=== PATIENT | female | born 1970 | race Caucasian/White ===

== ENCOUNTER 2018-12-06 07:35 | Inpatient (IN) | payer MEDICARE, OTHER ==
[~2018-12-06] VITALS: Ht 157.5 cm; Wt 101.5 kg
[2018-12-06] VITALS (43 sets, daily range): BP systolic 101–165; BP diastolic 54–92; PULSE 30–102; RESP 13–19; Ht 157.5 cm; Wt 101.5 kg
[~2018-12-06 07:35] MED LIST: AMIODARONE 150 MG INJ ONE; ASPI-650 PO; ATROPINE 1 MG/10 ML SYRINGE ONE; BENA40TA54 PO; BRIM15DR7; CALC667T2; CLON0.2T5; DOCU-144 PO; EPINEPHrine 0.1 MG/ML SYG ONE; ESOM40CA PO; FOLI0.8T23 PO; GLIP2.5T PO; INSU100V18 SQ; LACT10SO55 PO; LACTULOSE PO; LEVE-5 PO; METO100T PO; METO10TA3; MONT10TA21 PO; NA BICARBONATE 8.4% 50 ML SYG ONE; NEPH PO; NIFE30TA8; PHEN100C PO; PRED1DRO; PROSTAT 64 PO; WARF7.5T PO
[2018-12-06] MEDS ORDERED: AMIODARONE 900 MG in DEXTROSE 5% 482 ML IV SCH (08:30)
--- NOTE | 2018-12-06 09:07 | ERD ---
ER Documentation Chief Complaint Chief Complaint SOB HPI This is a 47-year-old female with a history of end-stage renal disease, hype rtension, morbid obesity presents to the emergency room for evaluation of weakness, shortness of breath. The patient was at dialysis today and could not complete her dialysis. The patient came to the emergency room for evaluation of her generalized weakness and shortness of breath. Patient denies any active chest pain at this time but does states she is feeling extremely weak ROS All systems reviewed and are negative except as per history of present illness. Medications Home Meds Reported Medications Insulin Lispro (Humalog) 100 U/Ml Vial, SQ SSI TID AND HS PRN 09/12/11 Multivit/Ca Carb/B Cmplx/Fa* (Mariaelena-Rosas*) 1 Tab Tab, 1 TAB PO DAILY 09/12/11 [Prostat 64] No Conflict Check, 30 ML PO TID 09/12/11 Esomeprazole Mag Trihydrate (Nexium) 40 Mg Capsule.dr, 40 MG PO DAILY 09/12/11 Metoprolol (Lopressor) 100 Mg Tablet, 100 MG PO BID 09/12/11 Benazepril Hcl* (Lotensin*) 40 Mg Tablet, 40 MG PO DAILY 09/12/11 [Lactulose] No Conflict Check, 30 ML PO DAILY PRN 09/12/11 Lactulose (Lactulose) 10 G/15 Ml Solution, 20 G PO BID 09/12/11 Glipizide* (Glucotrol XL*) 2.5 Mg Tabsr, 2.5 MG PO DAILY 09/12/11 Phenytoin* Sodium Extended (Dilantin*) 100 Mg Capsule, 300 MG PO HS 09/12/11 Phenytoin* Sodium Extended (Dilantin*) 100 Mg Capsule, 200 MG PO DAILY @0900 09/12/11 Phenytoin* Sodium Extended (Dilantin*) 100 Mg Capsule, 200 MG PO DAILY @1300 09/12/11 Phenytoin* Sodium Extended (Dilantin*) 100 Mg Capsule, 200 MG PO DAILY 09/12/11 Docusate Sodium* (Colace*) 100 Mg Capsule, 200 MG PO DAILY 09/12/11 Warfarin Sodium* (Coumadin*) 7.5 Mg Tablet, 7.5 MG PO Q OTHER DAY 06/01/11 Montelukast Sodium* (Singulair*) 10 Mg Tablet, 10 MG PO HS 06/01/11 Folic Acid/Vitamin B Comp W-C* (Nephro-Rosas Tablet*) 0.8 Mg Tablet, 0.8 MG PO DAILY 06/01/11 Aspirin (Aspirin) 81 Mg Tablet, 81 MG PO DAILY 06/01/11 Levetiracetam* (Keppra*) 500 Mg Tablet, 500 MG PO BID 06/01/11 Clonidine Hcl* (Clonidine Hcl*) 0.2 Mg Tablet 01/09/11 Metoclopramide Hcl* (Metoclopramide Hcl*) 10 Mg Tablet 01/09/11 Brimonidine Tartrate* (Brimonidine Tartrate*) 15 Ml Drops 01/09/11 Prednisolone Acetate (Pred Forte) 5 Ml Drops.susp 01/09/11 Nifedipine (Nifedical XL*) 30 Mg/Bottle Tab.osm.24 01/09/11 Calcium Acetate* (Phoslo*) 667 Mg Tablet 10/24/09 Allergies Allergies: Coded Allergies: No Known Allergy (Verified , 10/24/11) PMhx/Soc History of Surgery: Yes (AVF SHUNT, ) Anesthesia Reaction: No Hx Neurological Disorder: No Hx Respiratory Disorders: No Hx Cardiac Disorders: Yes (STROKE) Hx Psychiatric Problems: No Hx Miscellaneous Medical Probl: Yes (ANEMIA,SEIZURES) Hx Alcohol Use: No Hx Substance Use: No Hx Tobacco Use: No Smoking Status: Never smoker Physical Exam Vitals Vital Signs Date Temp Pulse Resp B/P (MAP) Pulse Ox O2 O2 Flow FiO2 Time Delivery Rate 12/06/18 96 Nasal 4.0 08:21 Cannula 12/06/18 97.9 95 23 124/59 66 Room Air 08:01 (80) 12/06/18 97.9 95 23 124/59 66 08:01 (80) 12/06/18 Nasal 4 07:59 Cannula Physical Exam INITIAL VITAL SIGNS: Reviewed by me GENERAL: The patient is morbidly obese, mild respiratory distress HEENT: Dry mucous membranes, pupils equal, round, and reactive to light. EOMI. There is no scleral icterus. NECK: C-spine is soft and supple, there is no meningismus. There is no cervical lymphadenopathy. LUNGS: Diminished bilaterally HEART: Regular rate and rhythm, no murmurs, clicks, rubs or gallops. ABDOMEN: Soft, non-tender, non-distended. There are bowel sounds in all four quadrants. No rebound or guarding. EXTREMITIES: Fistula in the right upper extremity, there is no peripheral cyanosis or edema. No focal swelling or erythema. NEUROLOGICAL: The patient moves all four extremities with 5/5 strength. Cranial nerves II - XII are intact. Normal gait. Alert and oriented SKIN: There is no apparent rash or petechiae. HEME/LYMPHATIC: There is no evidence of excessive bruising or lymphedema. PSYCHIATRIC: The patient does not appear anxious or depressed. Result Diagram: 12/06/18 0810 12/06/18 0810 Results 24 hrs Laboratory Tests Test 12/06/18 08:10 White Blood Count 8.6 10^3/ul Red Blood Count 3.28 10^6/ul Hemoglobin 9.9 g/dl Hematocrit 31.0 % Mean Corpuscular Volume 94.5 fl Mean Corpuscular Hemoglobin 30.2 pg Mean Corpuscular Hemoglobin Concent 31.9 g/dl Red Cell Distribution Width 14.2 % Platelet Count 142 10^3/UL Mean Platelet Volume 10.0 fl Immature Granulocytes % 0.600 % Neutrophils % 90.2 % Lymphocytes % 6.0 % Monocytes % 2.9 % Eosinophils % 0.1 % Basophils % 0.2 % Nucleated Red Blood Cells % 0.0 /100WBC Immature Granulocytes # 0.050 10^3/ul Neutrophils # 7.7 10^3/ul Lymphocytes # 0.5 10^3/ul Monocytes # 0.3 10^3/ul Eosinophils # 0.0 10^3/ul Basophils # 0.0 10^3/ul Nucleated Red Blood Cells # 0.0 10^3/ul Sodium Level 138 mmol/L Potassium Level 3.7 mmol/L Chloride Level 91 mmol/L Carbon Dioxide Level 35 mmol/L Anion Gap 12 Blood Urea Nitrogen 15 mg/dl Creatinine 3.05 mg/dl Est Glomerular Filtrat Rate mL/min 16 mL/min Glucose Level 228 mg/dl Lactic Acid Level 3.1 mmol/L Calcium Level 9.3 mg/dl Total Bilirubin 0.7 mg/dl Direct Bilirubin 0.00 mg/dl Indirect Bilirubin 0.7 mg/dl Aspartate Amino Transf (AST/SGOT) 21 IU/L Alanine Aminotransferase (ALT/SGPT) 15 IU/L Alkaline Phosphatase 114 IU/L Troponin I < 0.012 ng/ml Total Protein 7.9 g/dl Albumin 4.3 g/dl Globulin 3.60 g/dl Albumin/Globulin Ratio 1.19 Current Medications Medications Dose Sig/Lisa Start Time Status Last (Trade) Ordered Route PRN Stop Time Admin Dose Reason Admin Amiodarone 500 ml @ 0 Q0M IV 12/06/18 HCl 900 mls/hr 08:30 mg/Dextrose Procedures/MDM Chest X-ray 1V Interpreted by me: Soft Tissue: No acute abnormalities Bones: No acute abnormalities Mediastinum/Cardiac Silhouette/Lungs: Interstitial edema EKG: Rate/Rhythm: [Normal Sinus Rhythm] QRS, ST, T-waves: [No changes consistent w/ acute ischemia] Impression: [Normal sinus rhythm with left axis deviation, no ST elevation This 47-year-old female presents to the ER for evaluation of weakness, and shortness of breath. On my exam the patient was shaking, she did appear to be in mild respiratory distress. The patient was placed on 4 L nasal cannula. I was told that the patient's a pulse ox level was approximately 84% on room air. The patient did have an IV line established and went into a short run of ventr icular tachycardia. She remained awake during this run and it was captured on the patient's bedside monitor. The patient was awake, she is protecting her airway. I did order an amiodarone drip. The patient will definitely need to be admitted to the hospital for a cardiology consult. She is not hypotensive at this time with no need for vasopressors. The patient does have an elevated lactic acid however I do feel that this is likely secondary to her episode of V. tach as opposed to sepsis. She does not have a significant leukocytosis, and there is no need for antibiotics at this time. The patient will be admitted to panel physician Dr. Irwin and will be placed in the intensive care unit. Critical Care: Excluding all billable procedures Time: 55 minutes Treatments/Evaluations: Close monitoring and treatment of unstable vital signs, cardiorespiratory, and neurologic status, while maintaining tight balance of fluid, respiratory, and cardiac interventions. Departure Diagnosis: Primary Impression: Ventricular tachycardia (paroxysmal) Additional Impressions: Acute respiratory failure with hypoxia End stage renal disease Shortness of breath Morbid obesity Condition: Critical MARGY MONROE DO Dec 06, 2018 09:07
[2018-12-06] MEDS ORDERED: ALBUTEROL 0.083% (NEB) 2.5 MG/3 ML AMP NEB PRN (09:30)
[2018-12-06] MEDS ORDERED: MAGNESIUM HYDROXIDE 30ML CUP PO PRN (09:30)
[2018-12-06] MEDS ORDERED: DOCUSATE SODIUM 100 MG CAP PO PRN (09:30)
[2018-12-06] MEDS ORDERED: ONDANSETRON 4 MG INJ IV PRN (09:30)
[2018-12-06] MEDS ORDERED: ACETAMINOPHEN 325 MG TAB PO PRN (09:30)
--- NOTE | 2018-12-06 10:09 | HP ---
Date/Time of Note Date/Time of Note DATE: 12/06/18 TIME: 10:09 Assessment/Plan VTE Prophylaxis SCD applied (from Nsg): Yes Pharmacological prophylaxis: heparin Lines/Catheters IV Catheter Type (from Nrsg): Peripheral IV Assessment/Plan Assessment/Plan 1. Acute cardiac arrest with ROSC - Patient initially with NSVT and given prolonged QT and placement on Amiodarone went into torsades then coded. Patient coded another 3 times total secondary to PEA arrest - Cardiology on board and appreciate recommendations. Will start on Dopamine drip and if needed will place external pacer pads. Will most likely need cardi ac cath and possible defibrillator placement based on progression of clinical course - Currently being started on hypothermia protocol 2. ?Arrhythmia, NSVT - Patient has ? afib and may have had afib with aberrancy but initial event was not captured - EKG showing prolonged QT Will continue monitoring for further episodes - will place transcutaneous pacers - on coumadin but will hold for now 3. Cardiogenic shock - Continue on Dopamine and Levophed 4. Sepsis of unknown source - most likely aspiration given multiple cardiac arrest episodes - will order snider cultures and start broad spectrum antibiotics - trend lactic acids 5. Hypokalemia - replace 6. DM - will start insulin drip for now - A1c noted and uncontrolled 7. ESRD on HD - Dr. Reddy consulted for continuation of HD. T/T/S scheduled 8. h/o CVA - continue current medications 9. HTN - elevated at time of admission in the 200s. Currently requiring pressor support 10. Disposition - Admit to ICU for hypothermia protocol and close monitoring - guarded prognosis - plan of care discussed with sister at bedside >60 minutes of critical care time spent with patient Result Diagram: 12/06/18 0810 12/06/18 0810 Results 24hrs Laboratory Tests Test 12/06/18 08:10 White Blood Count 8.6 Red Blood Count 3.28 L Hemoglobin 9.9 L Hematocrit 31.0 L Mean Corpuscular Volume 94.5 Mean Corpuscular Hemoglobin 30.2 Mean Corpuscular Hemoglobin Concent 31.9 L Red Cell Distribution Width 14.2 Platelet Count 142 Mean Platelet Volume 10.0 Immature Granulocytes % 0.600 H Neutrophils % 90.2 H Lymphocytes % 6.0 L Monocytes % 2.9 Eosinophils % 0.1 Basophils % 0.2 Nucleated Red Blood Cells % 0.0 Immature Granulocytes # 0.050 H Neutrophils # 7.7 H Lymphocytes # 0.5 L Monocytes # 0.3 Eosinophils # 0.0 Basophils # 0.0 Nucleated Red Blood Cells # 0.0 Sodium Level 138 Potassium Level 3.7 Chloride Level 91 L Carbon Dioxide Level 35 H Anion Gap 12 Blood Urea Nitrogen 15 Creatinine 3.05 H Est Glomerular Filtrat Rate mL/min 16 L Glucose Level 228 H Lactic Acid Level 3.1 *H Calcium Level 9.3 Total Bilirubin 0.7 Direct Bilirubin 0.00 Indirect Bilirubin 0.7 Aspartate Amino Transf (AST/SGOT) 21 Alanine Aminotransferase (ALT/SGPT) 15 Alkaline Phosphatase 114 Troponin I < 0.012 Total Protein 7.9 Albumin 4.3 Globulin 3.60 H Albumin/Globulin Ratio 1.19 HPI/ROS Admit Date/Time Admit Date/Time 12/06/18 0900 Hx of Present Illness 47 yo F with PMH ESRD on HD for the past 8 years, Diabetes Mellitus, HTN, CVA with L sided residual weakness and ? afib on Coumadin presented to ED following dialysis this am due to feeling "cold." She was found hypoxic with saturations 66% which improved after being placed on NC. Patient denies any chest pain, law rtness of breath, nausea, vomiting, dizziness, abdominal pain, or urinary issues. While in the ED, patient was complaining of acute shortness of breath and witness to have runs of Vtach. She was placed on Amiodarone drip and went into Vtach and torsades rhythm and Vfib Patient received a shock, round of epi with ROSC. She was intubated and central line was placed. Hypothermia protocol was initiated and started on Lidocaine and Levophed. Patient coded two more times in the ED with noted PEA arrest. Patient was transferred to ICU. Patient coded again in the ICU and transvenous pacer was unable to be placed given stenosis of vessels. Patient was switched to Dopamine and Levophed and hy pothermia protocol continued. ROS All 12 systems reviewed and all pertinent positives as per HPI. All others negative. Constitutional: fatigue; No chills, No nausea Eyes: No discharge ENT: No congestion Respiratory: shortness of breath; No cough, No sputum, No wheezing Cardiovascular: No chest pain, No lightheadedness, No palpitations Gastrointestinal: No pain, No constipation, No diarrhea, No nausea, No vomiting Genitourinary: no complaints Musculoskeletal: no complaints Skin: No laceration, No rash Neurologic: No confusion, No focal-weakness, No syncope Endocrine: no complaints Lymphatic: no complaints Psychological: nl mood/affect Immunologic: no complaints PMH/Family/Social Past Medical History Medical History: diabetes, hypertension, renal disease, other (cva with left sided residual weakness) Medications Current Medications Amiodarone HCl 900 mg/Dextrose 500 ml @ 0 mls/hr Q0M IV Last administered on 12/06/18at 09:17; Admin Dose 33.3 MLS/HR; Start 12/06/18 at 08:30 Coded Allergies: No Known Allergy (Verified , 10/24/11) Past Surgical History Past Surgical Hx: other (fistula placement, C section) Family History Significant Family History: heart disease, renal disease Social History Alcohol Use: none Smoking Status: Never smoker Drug Use: none Exam/Review of Systems Vital Signs Vitals Vital Signs Date Temp Pulse Resp B/P (MAP) Pulse Ox O2 O2 Flow FiO2 Time Delivery Rate 12/06/18 96 Nasal 4.0 08:21 Cannula 12/06/18 97.9 95 23 124/59 08:01 (80) Exam Exam General: Patient initially was in no acute distress, answering questions approp riately. dry mucus membranes Head: Normocephalic atraumatic Eyes: EOMI, pupils reactive to light. Neck: Supple, nontender Chest: nontender Respiratory: Clear to auscultation bilaterally, diminished. no wheezing or rhonchi Cardiovascular: S1, S2, regular rate and rhythm, no obvious murmurs Gastrointestinal: soft, non-tender to palpation, nondistended, bowel sounds heard. Ext: RUE fistula Neurological: Moves all extremities spontaneously. diminished strength in LUE and LLE Skin: no rashes or ecchymosis Additional Comments Home medications reviewed BEAN BEST MD Dec 06, 2018 10:09
[2018-12-06] MEDS: ASPIRIN 81 MG TAB PO SCH (10:30)
[2018-12-06] MEDS ORDERED: LEVETIRACETAM 500 MG TAB PO SCH (10:30)
[2018-12-06] MEDS ORDERED: GLUCOSE GEL 15 GRAM TUBE PO PRN ×2 (10:30)
[2018-12-06] MEDS: NIFEdipine (XL) 30 MG TAB PO SCH (10:30)
[2018-12-06] MEDS ORDERED: GLUCAGON 1 MG INJ IM PRN (10:30)
[2018-12-06] MEDS: MULTIVIT/CA CARB/B CMPLX/FA TAB PO SCH (10:30)
[2018-12-06] MEDS ORDERED: DEXTROSE 50% 50 ML SYRINGE IV PRN ×4 (10:30→16:30)
[2018-12-06] MEDS ORDERED: DOCUSATE SODIUM 100 MG CAP PO SCH (10:30)
[2018-12-06] MEDS ORDERED: GLUCOSE GEL 15 GRAM TUBE BUCCAL PRN (10:30)
[2018-12-06] MEDS ORDERED: PHENYTOIN 100 MG CAP PO SCH ×3 (10:30→21:00)
[2018-12-06] MEDS ORDERED: METOPROLOL 100 MG TAB PO SCH (10:30)
[2018-12-06] MEDS ORDERED: glipiZIDE (XL) 2.5 MG TAB PO SCH (11:00)
[2018-12-06] MEDS: BRIMONIDINE 0.2% 5 ML BTL BOTH EYES SCH (11:00)
--- NOTE | 2018-12-06 11:02 | CONS ---
Assessment/Plan Assessment/Plan Assessment/Plan (Daily) 1. Cardiopulmonary Arrest--initially secondary to NSVT vs. Afib with aberrancy, thereafter course complicated by Torsades with notable QT prolongation. - Currently on Hypothermia protocol 2. ESRD on HD [facility] 3. acute hypoxemic respiratory failure due to cardiac arrest s/p Intubation on ventilator 4. Shock--likely cardiogenic; cannot exclude obstructive though clinical picture not consistent with massive PE. 5. Sepsis--unclear source at this time 6. HTN heart disease 7.. DM Plan: seen in ER< going to ICU, s/p Evaluation by cardiology and Wound Nurse, Remains intubated, on hypothermia protocol pt finished 3 hr 15 min HD today at HD unit, will hold off on HD today and tomorrow due to being on hypothermia protocol Thanks for consultation ,will follow up Consultation Date/Type/Reason Admit Date/Time 12/06/2018 Date of Consultation: Dec 06, 2018 Type of Consult NEPHROLOGY Reason for Consultation ESRD on Admitted with cardiac arrest Requesting Provider: BEAN BEST MD Date/Time of Note DATE: 12/06/18 TIME: 10:59 Hx of Present Illness 47 yo F with PMH ESRD on HD for the past 8 years, Diabetes Mellitus, HTN, CVA with L sided residual weakness and ? afib on Coumadin presented to ED following dialysis this am due to feeling "cold." She was found hypoxic with saturations 66% which improved after being placed on NC. Patient denies any chest pain, shortness of breath, nausea, vomiting, dizziness, abdominal pain, or urinary issues. While in the ED, patient was complaining of acute shortness of breath and witness to have runs of Vtach. She was placed on Amiodarone drip and went into Vtach and torsades rhythm and Vfib Patient received a shock, round of epi with ROSC. She was intubated and central line was placed. Hypothermia protocol was initiated and started on Lidocaine and Levophed. Patient coded two more times in the ED with noted PEA arrest. Patient was transferred to ICU. Patient coded again in the ICU and transvenous pacer was unable to be placed given stenosis of vessels. Patient was switched to Dopamine and Levophed and hypothermia protocol continued. Pt follows at [facility] HD center and her authorization representative is Dr.Susan- Today she c/o fever with chills in HD unit, received IV abx vanocmyin and HD terminated after 3 hr 15 min Subjective hx not possible: pt non-verbal, pt critical status, other (on hypothermia protocol ) Past Medical History Medical History: other (ESRD on HD for the past 8 years, Diabetes Mellitus, HTN, CVA with L sided residual weakness and ? afib on Coumadin ) Home Meds Reported Medications Insulin Lispro (Humalog) 100 U/Ml Vial, SQ SSI TID AND HS PRN 09/12/11 Multivit/Ca Carb/B Cmplx/Fa* (Mariaelena-Rosas*) 1 Tab Tab, 1 TAB PO DAILY 09/12/11 [Prostat 64] No Conflict Check, 30 ML PO TID 09/12/11 Esomeprazole Mag Trihydrate (Nexium) 40 Mg Capsule.dr, 40 MG PO DAILY 09/12/11 Metoprolol (Lopressor) 100 Mg Tablet, 100 MG PO BID 09/12/11 Benazepril Hcl* (Lotensin*) 40 Mg Tablet, 40 MG PO DAILY 09/12/11 [Lactulose] No Conflict Check, 30 ML PO DAILY PRN 09/12/11 Lactulose (Lactulose) 10 G/15 Ml Solution, 20 G PO BID 09/12/11 Glipizide* (Glucotrol XL*) 2.5 Mg Tabsr, 2.5 MG PO DAILY 09/12/11 Phenytoin* Sodium Extended (Dilantin*) 100 Mg Capsule, 300 MG PO HS 09/12/11 Phenytoin* Sodium Extended (Dilantin*) 100 Mg Capsule, 200 MG PO DAILY @0900 09/12/11 Phenytoin* Sodium Extended (Dilantin*) 100 Mg Capsule, 200 MG PO DAILY @1300 09/12/11 Phenytoin* Sodium Extended (Dilantin*) 100 Mg Capsule, 200 MG PO DAILY 09/12/11 Docusate Sodium* (Colace*) 100 Mg Capsule, 200 MG PO DAILY 09/12/11 Warfarin Sodium* (Coumadin*) 7.5 Mg Tablet, 7.5 MG PO Q OTHER DAY 06/01/11 Montelukast Sodium* (Singulair*) 10 Mg Tablet, 10 MG PO HS 06/01/11 Folic Acid/Vitamin B Comp W-C* (Nephro-Rosas Tablet*) 0.8 Mg Tablet, 0.8 MG PO DAILY 06/01/11 Aspirin (Aspirin) 81 Mg Tablet, 81 MG PO DAILY 06/01/11 Levetiracetam* (Keppra*) 500 Mg Tablet, 500 MG PO BID 06/01/11 Clonidine Hcl* (Clonidine Hcl*) 0.2 Mg Tablet 01/09/11 Metoclopramide Hcl* (Metoclopramide Hcl*) 10 Mg Tablet 01/09/11 Brimonidine Tartrate* (Brimonidine Tartrate*) 15 Ml Drops 01/09/11 Prednisolone Acetate (Pred Forte) 5 Ml Drops.susp 01/09/11 Nifedipine (Nifedical XL*) 30 Mg/Bottle Tab.osm.24 01/09/11 Calcium Acetate* (Phoslo*) 667 Mg Tablet 10/24/09 Medications Current Medications Amiodarone HCl 900 mg/Dextrose 500 ml @ 0 mls/hr Q0M IV Last administered on 12/06/18at 09:17; Admin Dose 33.3 MLS/HR; Start 12/06/18 at 08:30 Ondansetron HCl (Zofran Inj) 4 mg Q6H PRN IV NAUSEA AND/OR VOMITING; Start 12/06/18 at 09:30 Albuterol (Proventil 0.083% (Neb)) 2.5 mg Q2H RESP THERAPY PRN NEB SHORTNESS OF BREATH; Start 12/06/18 at 09:30 Acetaminophen (Tylenol Tab) 650 mg Q6H PRN PO PAIN LEVEL 1-3 OR FEVER; Start 12/06/18 at 09:30 Docusate Sodium (Colace) 100 mg Q12H PRN PO CONSTIPATION; Start 12/06/18 at 0 9:30 Magnesium Hydroxide (Milk Of Mag) 30 ml DAILY PRN PO CONSTIPATION; Start 12/06/18 at 09:30 Pantoprazole (Protonix Tab) 40 mg DAILY@06 PO ; Start 12/07/18 at 06:00 Heparin Sodium (Porcine) (Heparin (5000 Units/1ml)) 5,000 unit Q12 SC ; Start 12/06/18 at 21:00 Aspirin (Aspirin) 81 mg DAILY PO ; Start 12/06/18 at 10:30 Brimonidine Tartrate (Alphagan 0.2%) 1 drop DAILY BOTH EYES ; Start 12/06/18 at 11:00 Calcium Acetate (Phoslo) 667 mg WITH MEALS PO ; Start 12/06/18 at 12:00 Docusate Sodium (Colace) 200 mg DAILY PO ; Start 12/06/18 at 10:30 Glipizide (Glucotrol Xl) 2.5 mg DAILY PO ; Start 12/06/18 at 11:00 Lactulose (Enulose) 20 gm BID PO ; Start 12/06/18 at 21:00 Levetiracetam (Keppra) 500 mg BID PO ; Start 12/06/18 at 10:30 Metoprolol Tartrate (Lopressor) 100 mg BID PO ; Start 12/06/18 at 10:30 Montelukast Sodium (Singulair) 10 mg HS PO ; Start 12/06/18 at 21:00 Multivit/Ca Carb/ B Cmplx/FA/Prenat (Mariaelena-Rosas) 1 tab DAILY PO ; Start 12/06/18 at 10:30 Nifedipine (Procardia Xl) 30 mg DAILY PO ; Start 12/06/18 at 10:30 Phenytoin (Dilantin) 200 mg DAILY PO ; Start 12/06/18 at 10:30 Phenytoin (Dilantin) 200 mg WITH LUNCH PO ; Start 12/06/18 at 12:00 Phenytoin (Dilantin) 300 mg HS PO ; Start 12/06/18 at 21:00 Prednisolone Acetate (Pred-Forte 1%) 1 drop DAILY BOTH EARS ; Start 12/07/18 at 09:00; Status UNV Miscellaneous Information 1 ea NOTE XX ; Start 12/06/18 at 10:30 Glucose (Glutose) 15 gm Q15M PRN PO DECREASED GLUCOSE; Start 12/06/18 at 10:30 Glucose (Glutose) 22.5 gm Q15M PRN PO DECREASED GLUCOSE; Start 12/06/18 at 10:30 Dextrose (D50w Syringe) 25 ml Q15M PRN IV DECREASED GLUCOSE; Start 12/06/18 at 10:30 Dextrose (D50w Syringe) 50 ml Q15M PRN IV DECREASED GLUCOSE; Start 12/06/18 at 10:30 Glucagon (Glucagen) 1 mg Q15M PRN IM DECREASED GLUCOSE; Start 12/06/18 at 10:30 Glucose (Glutose) 15 gm Q15M PRN BUCCAL DECREASED GLUCOSE; Start 12/06/18 at 10:30 Allergies: Coded Allergies: No Known Allergy (Verified , 10/24/11) Social History Smoking Status: Never smoker Exam/Review of Systems Exam Vitals Vital Signs Date Temp Pulse Resp B/P (MAP) Pulse Ox O2 O2 Flow FiO2 Time Delivery Rate 12/06/18 97 24 206/56 98 Nasal 4.0 09:43 (106) Cannula 12/06/18 97.9 08:01 Exam Constitutional: non-verbal Head: normocephalic, atraumatic Eyes: nl conjunctiva, nl lids ENMT: intubated Neck: supple, non-tender Respiratory: diminished breath sounds Cardiovascular: irregular rhythm Gastrointestinal: soft, nl liver, spleen, non-tender Extremities: normal pulses, other (cold ) Neurological: unresponsive Skin: nl turgor Results Result Diagram: 12/06/18 0810 12/06/18 0810 Results 24hrs Laboratory Tests Test 12/06/18 07:22 12/06/18 08:10 Hemoglobin A1c 12.9 H White Blood Count 8.6 Red Blood Count 3.28 L Hemoglobin 9.9 L Hematocrit 31.0 L Mean Corpuscular Volume 94.5 Mean Corpuscular Hemoglobin 30.2 Mean Corpuscular Hemoglobin Concent 31.9 L Red Cell Distribution Width 14.2 Platelet Count 142 Mean Platelet Volume 10.0 Immature Granulocytes % 0.600 H Neutrophils % 90.2 H Lymphocytes % 6.0 L Monocytes % 2.9 Eosinophils % 0.1 Basophils % 0.2 Nucleated Red Blood Cells % 0.0 Immature Granulocytes # 0.050 H Neutrophils # 7.7 H Lymphocytes # 0.5 L Monocytes # 0.3 Eosinophils # 0.0 Basophils # 0.0 Nucleated Red Blood Cells # 0.0 Sodium Level 138 Potassium Level 3.7 Chloride Level 91 L Carbon Dioxide Level 35 H Anion Gap 12 Blood Urea Nitrogen 15 Creatinine 3.05 H Est Glomerular Filtrat Rate mL/min 16 L Glucose Level 228 H Lactic Acid Level 3.1 *H Calcium Level 9.3 Total Bilirubin 0.7 Direct Bilirubin 0.00 Indirect Bilirubin 0.7 Aspartate Amino Transf (AST/SGOT) 21 Alanine Aminotransferase (ALT/SGPT) 15 Alkaline Phosphatase 114 Troponin I < 0.012 Total Protein 7.9 Albumin 4.3 Globulin 3.60 H Albumin/Globulin Ratio 1.19 Medications Medication Current Medications Amiodarone HCl 900 mg/Dextrose 500 ml @ 0 mls/hr Q0M IV Last administered on 12/06/18at 09:17; Admin Dose 33.3 MLS/HR; Start 12/06/18 at 08:30 Ondansetron HCl (Zofran Inj) 4 mg Q6H PRN IV NAUSEA AND/OR VOMITING; Start 12/06/18 at 09:30 Albuterol (Proventil 0.083% (Neb)) 2.5 mg Q2H RESP THERAPY PRN NEB SHORTNESS OF BREATH; Start 12/06/18 at 09:30 Acetaminophen (Tylenol Tab) 650 mg Q6H PRN PO PAIN LEVEL 1-3 OR FEVER; Start 12/06/18 at 09:30 Docusate Sodium (Colace) 100 mg Q12H PRN PO CONSTIPATION; Start 12/06/18 at 09:30 Magnesium Hydroxide (Milk Of Mag) 30 ml DAILY PRN PO CONSTIPATION; Start 12/06/18 at 09:30 Pantoprazole (Protonix Tab) 40 mg DAILY@06 PO ; Start 12/07/18 at 06:00 Heparin Sodium (Porcine) (Heparin (5000 Units/1ml)) 5,000 unit Q12 SC ; Start 12/06/18 at 21:00 Aspirin (Aspirin) 81 mg DAILY PO ; Start 12/06/18 at 10:30 Brimonidine Tartrate (Alphagan 0.2%) 1 drop DAILY BOTH EYES ; Start 12/06/18 at 11:00 Calcium Acetate (Phoslo) 667 mg WITH MEALS PO ; Start 12/06/18 at 12:00 Docusate Sodium (Colace) 200 mg DAILY PO ; Start 12/06/18 at 10:30 Glipizide (Glucotrol Xl) 2.5 mg DAILY PO ; Start 12/06/18 at 11:00 Lactulose (Enulose) 20 gm BID PO ; Start 12/06/18 at 21:00 Levetiracetam (Keppra) 500 mg BID PO ; Start 12/06/18 at 10:30 Metoprolol Tartrate (Lopressor) 100 mg BID PO ; Start 12/06/18 at 10:30 Montelukast Sodium (Singulair) 10 mg HS PO ; Start 12/06/18 at 21:00 Multivit/Ca Carb/ B Cmplx/FA/Prenat (Mariaelena-Rosas) 1 tab DAILY PO ; Start 12/06/18 at 10:30 Nifedipine (Procardia Xl) 30 mg DAILY PO ; Start 12/06/18 at 10:30 Phenytoin (Dilantin) 200 mg DAILY PO ; Start 12/06/18 at 10:30 Phenytoin (Dilantin) 200 mg WITH LUNCH PO ; Start 12/06/18 at 12:00 Phenytoin (Dilantin) 300 mg HS PO ; Start 12/06/18 at 21:00 Prednisolone Acetate (Pred-Forte 1%) 1 drop DAILY BOTH EARS ; Start 12/07/18 at 09:00; Status UNV Miscellaneous Information 1 ea NOTE XX ; Start 12/06/18 at 10:30 Glucose (Glutose) 15 gm Q15M PRN PO DECREASED GLUCOSE; Start 12/06/18 at 10:30 Glucose (Glutose) 22.5 gm Q15M PRN PO DECREASED GLUCOSE; Start 12/06/18 at 10:30 Dextrose (D50w Syringe) 25 ml Q15M PRN IV DECREASED GLUCOSE; Start 12/06/18 at 10:30 Dextrose (D50w Syringe) 50 ml Q15M PRN IV DECREASED GLUCOSE; Start 12/06/18 at 10:30 Glucagon (Glucagen) 1 mg Q15M PRN IM DECREASED GLUCOSE; Start 12/06/18 at 10:30 Glucose (Glutose) 15 gm Q15M PRN BUCCAL DECREASED GLUCOSE; Start 12/06/18 at 10:30 LAZ MELGAR MD Dec 06, 2018 11:02
--- NOTE | 2018-12-06 11:57 | CONS ---
Assessment/Plan Assessment/Plan Hospital Course (Demo Recall) NSVT: Unfortunately the tele bed in the ER that she was in does not record arrhythmias. Per ER MD she had 10-12 beats runs. This may be true NSVT but if she has underlying afib she may have had runs of afib with aberrancy. Will start with an echo and trend trops. If EF preserved, may just treat with metoprolol and consider stress test. Acute on ?chronic ?diastolic CHF: unknown EF. MIld CHF by exam. Did have HD already today as outpt HTN : BP initially recorded in the 120s, now >200. Likely contributing to above ?Paroxysmal afib: pt is unsure why she takes this. With h/o stroke, presumably she had afib in the past. ESRD on HD DM CVA with left weakness -d/c amiodarone drip -f/u echo -increase to metoprolol 150mg BID -restart home benazepril 40mg -restart clonidine 0.2mg TID -continue nifedipine 30mg -ok to hold coumadin until decision is made regarding need for cath based on echo findings. -d/c SQ heparin until INR is checked as she is presumably already anticoagulated on coumadin Consultation Date/Type/Reason Admit Date/Time 12/06/2018 Date of Consultation: Dec 06, 2018 Type of Consult Cardiology Reason for Consultation NSVT Requesting Provider: BEAN BEST MD Date/Time of Note DATE: 12/06/18 TIME: 11:32 Hx of Present Illness 47 yo F with a h/o stroke with left residual, DM, ESRD on HD TTS, ?paroxysmal afib on coumadin (pt unaware of reason), who presented with weakness and feeling cold and was found to have hypoxia and per ER MD an episode of NSVT with salvos of 10-12 beats lasting for <30 seconds. Pt denies prior cardiac history. No chest pain. No SOB. No syncope. She is essentially in bed all the time due to her stroke and lives in an assisted living facility. She had HD at 3 am today per hPI Past Medical History per hPI Home Meds Reported Medications Insulin Lispro (Humalog) 100 U/Ml Vial, SQ SSI TID AND HS PRN 09/12/11 Multivit/Ca Carb/B Cmplx/Fa* (Mariaelena-Rosas*) 1 Tab Tab, 1 TAB PO DAILY 09/12/11 [Prostat 64] No Conflict Check, 30 ML PO TID 09/12/11 Esomeprazole Mag Trihydrate (Nexium) 40 Mg Capsule.dr, 40 MG PO DAILY 09/12/11 Metoprolol (Lopressor) 100 Mg Tablet, 100 MG PO BID 09/12/11 Benazepril Hcl* (Lotensin*) 40 Mg Tablet, 40 MG PO DAILY 09/12/11 [Lactulose] No Conflict Check, 30 ML PO DAILY PRN 09/12/11 Lactulose (Lactulose) 10 G/15 Ml Solution, 20 G PO BID 09/12/11 Glipizide* (Glucotrol XL*) 2.5 Mg Tabsr, 2.5 MG PO DAILY 09/12/11 Phenytoin* Sodium Extended (Dilantin*) 100 Mg Capsule, 300 MG PO HS 09/12/11 Phenytoin* Sodium Extended (Dilantin*) 100 Mg Capsule, 200 MG PO DAILY @0900 09/12/11 Phenytoin* Sodium Extended (Dilantin*) 100 Mg Capsule, 200 MG PO DAILY @1300 09/12/11 Phenytoin* Sodium Extended (Dilantin*) 100 Mg Capsule, 200 MG PO DAILY 09/12/11 Docusate Sodium* (Colace*) 100 Mg Capsule, 200 MG PO DAILY 09/12/11 Warfarin Sodium* (Coumadin*) 7.5 Mg Tablet, 7.5 MG PO Q OTHER DAY 06/01/11 Montelukast Sodium* (Singulair*) 10 Mg Tablet, 10 MG PO HS 06/01/11 Folic Acid/Vitamin B Comp W-C* (Nephro-Rosas Tablet*) 0.8 Mg Tablet, 0.8 MG PO DAILY 06/01/11 Aspirin (Aspirin) 81 Mg Tablet, 81 MG PO DAILY 06/01/11 Levetiracetam* (Keppra*) 500 Mg Tablet, 500 MG PO BID 06/01/11 Clonidine Hcl* (Clonidine Hcl*) 0.2 Mg Tablet 01/09/11 Metoclopramide Hcl* (Metoclopramide Hcl*) 10 Mg Tablet 01/09/11 Brimonidine Tartrate* (Brimonidine Tartrate*) 15 Ml Drops 01/09/11 Prednisolone Acetate (Pred Forte) 5 Ml Drops.susp 01/09/11 Nifedipine (Nifedical XL*) 30 Mg/Bottle Tab.osm.24 01/09/11 Calcium Acetate* (Phoslo*) 667 Mg Tablet 10/24/09 Medications Current Medications Ondansetron HCl (Zofran Inj) 4 mg Q6H PRN IV NAUSEA AND/OR VOMITING; Start 12/06/18 at 09:30 Albuterol (Proventil 0.083% (Neb)) 2.5 mg Q2H RESP THERAPY PRN NEB SHORTNESS OF BREATH; Start 12/06/18 at 09:30 Acetaminophen (Tylenol Tab) 650 mg Q6H PRN PO PAIN LEVEL 1-3 OR FEVER; Start 12/06/18 at 09:30 Docusate Sodium (Colace) 100 mg Q12H PRN PO CONSTIPATION; Start 12/06/18 at 09:30 Magnesium Hydroxide (Milk Of Mag) 30 ml DAILY PRN PO CONSTIPATION; Start 12/06/18 at 09:30 Pantoprazole (Protonix Tab) 40 mg DAILY@06 PO ; Start 12/07/18 at 06:00 Heparin Sodium (Porcine) (Heparin (5000 Units/1ml)) 5,000 unit Q12 SC ; Start 12/06/18 at 21:00 Aspirin (Aspirin) 81 mg DAILY PO ; Start 12/06/18 at 10:30 Brimonidine Tartrate (Alphagan 0.2%) 1 drop DAILY BOTH EYES ; Start 12/06/18 at 11:00 Calcium Acetate (Phoslo) 667 mg WITH MEALS PO ; Start 12/06/18 at 12:00 Docusate Sodium (Colace) 200 mg DAILY PO ; Start 12/06/18 at 10:30 Glipizide (Glucotrol Xl) 2.5 mg DAILY PO ; Start 12/06/18 at 11:00 Lactulose (Enulose) 20 gm BID PO ; Start 12/06/18 at 21:00 Levetiracetam (Keppra) 500 mg BID PO ; Start 12/06/18 at 10:30 Metoprolol Tartrate (Lopressor) 100 mg BID PO ; Start 12/06/18 at 10:30 Montelukast Sodium (Singulair) 10 mg HS PO ; Start 12/06/18 at 21:00 Multivit/Ca Carb/ B Cmplx/FA/Prenat (Mariaelena-Rosas) 1 tab DAILY PO ; Start 12/06/18 at 10:30 Nifedipine (Procardia Xl) 30 mg DAILY PO ; Start 12/06/18 at 10:30 Phenytoin (Dilantin) 200 mg DAILY PO ; Start 12/06/18 at 10:30 Phenytoin (Dilantin) 200 mg WITH LUNCH PO ; Start 12/06/18 at 12:00 Phenytoin (Dilantin) 300 mg HS PO ; Start 12/06/18 at 21:00 Prednisolone Acetate (Pred-Forte 1%) 1 drop DAILY BOTH EARS ; Start 12/07/18 at 09:00; Status UNV Miscellaneous Information 1 ea NOTE XX ; Start 12/06/18 at 10:30 Glucose (Glutose) 15 gm Q15M PRN PO DECREASED GLUCOSE; Start 12/06/18 at 10:30 Glucose (Glutose) 22.5 gm Q15M PRN PO DECREASED GLUCOSE; Start 12/06/18 at 10:30 Dextrose (D50w Syringe) 25 ml Q15M PRN IV DECREASED GLUCOSE; Start 12/06/18 at 10:30 Dextrose (D50w Syringe) 50 ml Q15M PRN IV DECREASED GLUCOSE; Start 12/06/18 at 10:30 Glucagon (Glucagen) 1 mg Q15M PRN IM DECREASED GLUCOSE; Start 12/06/18 at 10:30 Glucose (Glutose) 15 gm Q15M PRN BUCCAL DECREASED GLUCOSE; Start 12/06/18 at 10:30 Allergies: Coded Allergies: No Known Allergy (Verified , 10/24/11) Social History Smoking Status: Never smoker Exam/Review of Systems Vital Signs Vitals Vital Signs Date Temp Pulse Resp B/P (MAP) Pulse Ox O2 O2 Flow FiO2 Time Delivery Rate 12/06/18 90 21 216/68 99 Nasal 4.0 11:00 (117) Cannula 12/06/18 97.9 08:01 Exam Constitutional: alert, oriented Psych: no complaints, nl mood/affect Head: normocephalic, atraumatic Neck: supple, jvd (8-9cm) Respiratory: crackles/rales, diminished breath sounds; No clear to auscultation Cardiovascular: regular rate and rhythm, edema (1+), systolic murmur (2/6 JOSH) Gastrointestinal: soft, non-tender; No distended Neurological: nl mental status, nl speech Labs Result Diagram: 12/06/18 0810 12/06/18 0810 Results 24hrs Laboratory Tests Test 12/06/18 07:22 12/06/18 08:10 Hemoglobin A1c 12.9 H White Blood Count 8.6 Red Blood Count 3.28 L Hemoglobin 9.9 L Hematocrit 31.0 L Mean Corpuscular Volume 94.5 Mean Corpuscular Hemoglobin 30.2 Mean Corpuscular Hemoglobin Concent 31.9 L Red Cell Distribution Width 14.2 Platelet Count 142 Mean Platelet Volume 10.0 Immature Granulocytes % 0.600 H Neutrophils % 90.2 H Lymphocytes % 6.0 L Monocytes % 2.9 Eosinophils % 0.1 Basophils % 0.2 Nucleated Red Blood Cells % 0.0 Immature Granulocytes # 0.050 H Neutrophils # 7.7 H Lymphocytes # 0.5 L Monocytes # 0.3 Eosinophils # 0.0 Basophils # 0.0 Nucleated Red Blood Cells # 0.0 Sodium Level 138 Potassium Level 3.7 Chloride Level 91 L Carbon Dioxide Level 35 H Anion Gap 12 Blood Urea Nitrogen 15 Creatinine 3.05 H Est Glomerular Filtrat Rate mL/min 16 L Glucose Level 228 H Lactic Acid Level 3.1 *H Calcium Level 9.3 Total Bilirubin 0.7 Direct Bilirubin 0.00 Indirect Bilirubin 0.7 Aspartate Amino Transf (AST/SGOT) 21 Alanine Aminotransferase (ALT/SGPT) 15 Alkaline Phosphatase 114 Troponin I < 0.012 Total Protein 7.9 Albumin 4.3 Globulin 3.60 H Albumin/Globulin Ratio 1.19 Medications Medications Current Medications Ondansetron HCl (Zofran Inj) 4 mg Q6H PRN IV NAUSEA AND/OR VOMITING; Start 12/06/18 at 09:30 Albuterol (Proventil 0.083% (Neb)) 2.5 mg Q2H RESP THERAPY PRN NEB SHORTNESS OF BREATH; Start 12/06/18 at 09:30 Acetaminophen (Tylenol Tab) 650 mg Q6H PRN PO PAIN LEVEL 1-3 OR FEVER; Start 12/06/18 at 09:30 Docusate Sodium (Colace) 100 mg Q12H PRN PO CONSTIPATION; Start 12/06/18 at 09:30 Magnesium Hydroxide (Milk Of Mag) 30 ml DAILY PRN PO CONSTIPATION; Start 9 at 09:30 Pantoprazole (Protonix Tab) 40 mg DAILY@06 PO ; Start 12/07/18 at 06:00 Heparin Sodium (Porcine) (Heparin (5000 Units/1ml)) 5,000 unit Q12 SC ; Start 12/06/18 at 21:00 Aspirin (Aspirin) 81 mg DAILY PO ; Start 12/06/18 at 10:30 Brimonidine Tartrate (Alphagan 0.2%) 1 drop DAILY BOTH EYES ; Start 12/06/18 at 11:00 Calcium Acetate (Phoslo) 667 mg WITH MEALS PO ; Start 12/06/18 at 12:00 Docusate Sodium (Colace) 200 mg DAILY PO ; Start 12/06/18 at 10:30 Glipizide (Glucotrol Xl) 2.5 mg DAILY PO ; Start 12/06/18 at 11:00 Lactulose (Enulose) 20 gm BID PO ; Start 12/06/18 at 21:00 Levetiracetam (Keppra) 500 mg BID PO ; Start 12/06/18 at 10:30 Metoprolol Tartrate (Lopressor) 100 mg BID PO ; Start 12/06/18 at 10:30 Montelukast Sodium (Singulair) 10 mg HS PO ; Start 12/06/18 at 21:00 Multivit/Ca Carb/ B Cmplx/FA/Prenat (Mariaelena-Rosas) 1 tab DAILY PO ; Start 12/06/18 at 10:30 Nifedipine (Procardia Xl) 30 mg DAILY PO ; Start 12/06/18 at 10:30 Phenytoin (Dilantin) 200 mg DAILY PO ; Start 12/06/18 at 10:30 Phenytoin (Dilantin) 200 mg WITH LUNCH PO ; Start 12/06/18 at 12:00 Phenytoin (Dilantin) 300 mg HS PO ; Start 12/06/18 at 21:00 Prednisolone Acetate (Pred-Forte 1%) 1 drop DAILY BOTH EARS ; Start 12/07/18 at 09:00; Status UNV Miscellaneous Information 1 ea NOTE XX ; Start 12/06/18 at 10:30 Glucose (Glutose) 15 gm Q15M PRN PO DECREASED GLUCOSE; Start 12/06/18 at 10:30 Glucose (Glutose) 22.5 gm Q15M PRN PO DECREASED GLUCOSE; Start 12/06/18 at 10:30 Dextrose (D50w Syringe) 25 ml Q15M PRN IV DECREASED GLUCOSE; Start 12/06/18 at 10:30 Dextrose (D50w Syringe) 50 ml Q15M PRN IV DECREASED GLUCOSE; Start 12/06/18 at 10:30 Glucagon (Glucagen) 1 mg Q15M PRN IM DECREASED GLUCOSE; Start 12/06/18 at 10:30 Glucose (Glutose) 15 gm Q15M PRN BUCCAL DECREASED GLUCOSE; Start 12/06/18 at 10:30 JJ BRANCH Dec 06, 2018 11:43
[2018-12-06] MEDS: BENAZEPRIL 40 MG TAB PO SCH (12:00)
[2018-12-06] MEDS: CALCIUM ACETATE 667 MG CAP PO SCH ×2 (12:00→17:35)
[2018-12-06] MEDS ORDERED: PROPOFOL 100 ML ONE (12:43)
[2018-12-06] MEDS ORDERED: PROPOFOL 200 MG INJ IV ONE ×2 (12:44→12:53)
[2018-12-06] MEDS ORDERED: MIDAZOLAM 1 MG/ML 2 ML INJ ONE (13:17)
[2018-12-06] MEDS ORDERED: MAGNESIUM SULFATE 2 GM/50 ML 50 ML IVPB ONE (13:30)
[2018-12-06] MEDS ORDERED: LIDOCAINE 2 GM/D5W 500 ML IV SCH (13:30)
[2018-12-06] MEDS ORDERED: ATROPINE 1 MG/10 ML SYRINGE ONE ×2 (13:42→15:50)
[2018-12-06] MEDS ORDERED: MIDAZOLAM (DRIP) 50 mg/50 mL 50 ML IV STA (13:42)
[2018-12-06] MEDS ORDERED: FENTAnyl (DRIP) 1000 mcg/100mL 100 ML IV ONE (14:00)
[2018-12-06] MEDS ORDERED: ATROPINE 1 MG/10 ML SYRINGE IV PRN (16:00)
[2018-12-06] MEDS: NORepinephrine 8MG/250 ML (PMX 250 ML IV SCH (16:03)
[2018-12-06] MEDS: PROPOFOL 100 ML IV SCH ×3 (16:21→22:52)
[2018-12-06] MEDS ORDERED: NA BICARBONATE 8.4% 50 ML SYG IV ONE (16:30)
[2018-12-06] MEDS: ACCU-CHEK XX SCH ×8 (16:30→23:33)
[2018-12-06] MEDS ORDERED: MIDAZOLAM 1 MG/ML 2 ML INJ IV ONE (16:30)
--- NOTE | 2018-12-06 17:00 | CONS ---
Assessment/Plan Assessment/Plan Assessment/Plan (Daily) IMP: 1. Cardiopulmonary Arrest--initially secondary to NSVT vs. Afib with aberrancy, thereafter course complicated by Torsades with notable QT prolongation. 2. Intermittent Bradycardia--possibly due to chronotropic incompetence vs. ischemia +/- b-blockade 3. Respiratory Failure/Vent 2/2 #1 4. Shock--likely cardiogenic; cannot exclude obstructive though clinical picture not consistent with massive PE. 5. ESRD on HD 6. Sepsis--unclear source at this time 7. HTN heart disease 8. DM RECS: 1. Place introducer for possible transvenous pacer 2. Transcutaneous pacing for the time being 3. Dopamine gtt 4. Levophed gtt to MAP > 65 mm Hg 5. Broad spectrum abx 6. Check CVP 7. Serial troponin 8. Follow lactate clearance 9. Hypothermia protocol 10. Broad spectrum abx 11. Panculture 12. Follow-up ECHO 13. LE venous doppler Prognosis very poor. Consultation Date/Type/Reason Admit Date/Time 12/06/2018 Date of Consultation: Dec 06, 2018 Type of Consult Pulm/CCM Reason for Consultation s/p cardiopulmonary arrest Date/Time of Note DATE: 12/06/18 TIME: 16:46 Hx of Present Illness Briefly, this is a 47-year-old morbidly obese female, likely RADHA/OHS, ESRD on HD, HTN, CVA, DM, bedbound at home, presented to the ED with weakness. Her ED course is not entirely clear though it appears that she had a few runs of NSVT s/p amiodarone. Thereafter, she was noted to have torsades and v.fib, s/p ACLS and intubation with ROSC. She subsequently was noted to have two episodes of bradycardia, followed by PEA. She was transferred to the ICU, on vasopressor support, where she became bradycardic and went into PEA s/p CPR with ROSC. Subjective hx not possible: pt non-verbal Past Medical History Medical History: coronary artery disease, diabetes, high cholesterol, hypertension Home Meds Reported Medications Insulin Lispro (Humalog) 100 U/Ml Vial, SQ SSI TID AND HS PRN 09/12/11 Multivit/Ca Carb/B Cmplx/Fa* (Mariaelena-Rosas*) 1 Tab Tab, 1 TAB PO DAILY 09/12/11 [Prostat 64] No Conflict Check, 30 ML PO TID 09/12/11 Esomeprazole Mag Trihydrate (Nexium) 40 Mg Capsule.dr, 40 MG PO DAILY 09/12/11 Metoprolol (Lopressor) 100 Mg Tablet, 100 MG PO BID 09/12/11 Benazepril Hcl* (Lotensin*) 40 Mg Tablet, 40 MG PO DAILY 09/12/11 [Lactulose] No Conflict Check, 30 ML PO DAILY PRN 09/12/11 Lactulose (Lactulose) 10 G/15 Ml Solution, 20 G PO BID 09/12/11 Glipizide* (Glucotrol XL*) 2.5 Mg Tabsr, 2.5 MG PO DAILY 09/12/11 Phenytoin* Sodium Extended (Dilantin*) 100 Mg Capsule, 300 MG PO HS 09/12/11 Phenytoin* Sodium Extended (Dilantin*) 100 Mg Capsule, 200 MG PO DAILY @0900 09/12/11 Phenytoin* Sodium Extended (Dilantin*) 100 Mg Capsule, 200 MG PO DAILY @1300 09/12/11 Phenytoin* Sodium Extended (Dilantin*) 100 Mg Capsule, 200 MG PO DAILY 09/12/11 Docusate Sodium* (Colace*) 100 Mg Capsule, 200 MG PO DAILY 09/12/11 Warfarin Sodium* (Coumadin*) 7.5 Mg Tablet, 7.5 MG PO Q OTHER DAY 06/01/11 Montelukast Sodium* (Singulair*) 10 Mg Tablet, 10 MG PO HS 06/01/11 Folic Acid/Vitamin B Comp W-C* (Nephro-Rosas Tablet*) 0.8 Mg Tablet, 0.8 MG PO DAILY 06/01/11 Aspirin (Aspirin) 81 Mg Tablet, 81 MG PO DAILY 06/01/11 Levetiracetam* (Keppra*) 500 Mg Tablet, 500 MG PO BID 06/01/11 Clonidine Hcl* (Clonidine Hcl*) 0.2 Mg Tablet 01/09/11 Metoclopramide Hcl* (Metoclopramide Hcl*) 10 Mg Tablet 01/09/11 Brimonidine Tartrate* (Brimonidine Tartrate*) 15 Ml Drops 01/09/11 Prednisolone Acetate (Pred Forte) 5 Ml Drops.susp 01/09/11 Nifedipine (Nifedical XL*) 30 Mg/Bottle Tab.osm.24 01/09/11 Calcium Acetate* (Phoslo*) 667 Mg Tablet 10/24/09 Medications Current Medications Ondansetron HCl (Zofran Inj) 4 mg Q6H PRN IV NAUSEA AND/OR VOMITING; Start 12/06/18 at 09:30 Albuterol (Proventil 0.083% (Neb)) 2.5 mg Q2H RESP THERAPY PRN NEB SHORTNESS OF BREATH; Start 12/06/18 at 09:30 Acetaminophen (Tylenol Tab) 650 mg Q6H PRN PO PAIN LEVEL 1-3 OR FEVER; Start 12/06/18 at 09:30 Docusate Sodium (Colace) 100 mg Q12H PRN PO CONSTIPATION; Start 12/06/18 at 09:30 Magnesium Hydroxide (Milk Of Mag) 30 ml DAILY PRN PO CONSTIPATION; Start 12/06/18 at 09:30 Pantoprazole (Protonix Tab) 40 mg DAILY@06 PO ; Start 12/07/18 at 06:00 Aspirin (Aspirin) 81 mg DAILY PO ; Start 12/06/18 at 10:30 Brimonidine Tartrate (Alphagan 0.2%) 1 drop DAILY BOTH EYES ; Start 12/06/18 at 11:00 Calcium Acetate (Phoslo) 667 mg WITH MEALS PO ; Start 12/06/18 at 12:00 Docusate Sodium (Colace) 200 mg DAILY PO ; Start 12/06/18 at 10:30 Lactulose (Enulose) 20 gm BID PO ; Start 12/06/18 at 21:00 Levetiracetam (Keppra) 500 mg BID PO ; Start 12/06/18 at 10:30 Montelukast Sodium (Singulair) 10 mg HS PO ; Start 12/06/18 at 21:00 Multivit/Ca Carb/ B Cmplx/FA/Prenat (Mariaelena-Rosas) 1 tab DAILY PO ; Start 12/06/18 at 10:30 Nifedipine (Procardia Xl) 30 mg DAILY PO ; Start 12/06/18 at 10:30 Phenytoin (Dilantin) 200 mg DAILY PO ; Start 12/06/18 at 10:30 Phenytoin (Dilantin) 200 mg WITH LUNCH PO ; Start 12/06/18 at 12:00 Phenytoin (Dilantin) 300 mg HS PO ; Start 12/06/18 at 21:00 Miscellaneous Information 1 ea NOTE XX ; Start 12/06/18 at 10:30 Metoprolol Tartrate (Lopressor) 150 mg BID PO ; Start 12/06/18 at 21:00 Benazepril HCl (Lotensin) 40 mg DAILY PO ; Start 12/06/18 at 12:00 Clonidine (Catapres) 0.2 mg TID PO ; Start 12/06/18 at 13:00 Norepinephrine 250 ml @ 1.875 mls/ hr TITRATE IV Last administered on 12/06/18at 16:03; Admin Dose 1.875 MLS/HR; Start 12/06/18 at 13:00 Lidocaine HCl/ Dextrose 500 ml @ 15 mls/hr Q24H IV Last administered on 12/06/18at 13:54; Admin Dose 15 MLS/HR; Start 12/06/18 at 13:30 Midazolam HCl 50 ml @ 3 mls/hr ONCE STAT IV ; Start 12/06/18 at 13:42; Stop 12/07/18 at 06:21 Fentanyl 100 ml @ 2.5 mls/hr TITRATE ONCE IV ; Start 12/06/18 at 14:00; Stop 12/08/18 at 05:59 Atropine Sulfate (Atropine (Syringe)) 1 mg PRN PRN IV prn; Start 12/06/18 at 16:00 Propofol 100 ml @ 3.045 mls/ hr Q12H IV Last administered on 12/06/18at 16:21; Admin Dose 24.36 MLS/HR; Start 12/06/18 at 16:30 Diagnostic Test (Pha) (Accu-Chek) 1 ea Q1H XX ; Start 12/06/18 at 16:30 Insulin Human Regular 100 unit/ Sodium Chloride 100 ml @ 0 mls/hr PER PROTOCOL IV ; Start 12/06/18 at 16:30 Miscellaneous Information (* Miscellaneous Pharmacy Order) Treatment of Hypoglycemia: 1.BG 51... Per protocol XX ; Start 12/06/18 at 16:30 Dextrose (D50w Syringe) 25 ml Q15M PRN IV .DECREASED GLUCOSE; Start 12/06/18 at 16:30 Dextrose (D50w Syringe) 50 ml Q15M PRN IV .DECREASED GLUCOSE; Start 12/06/18 at 16:30 Midazolam HCl 50 ml @ 1 mls/hr TITRATE IV ; Start 12/06/18 at 16:30 Potassium Chloride 100 ml @ 50 mls/hr Q2H IVPB ; Start 12/06/18 at 16:30; Stop 12/06/18 at 20:29 Allergies: Coded Allergies: No Known Allergy (Verified , 10/24/11) Past Surgical History Past Surgical Hx: other (left AV fisuta) Family History Significant Family History: no pertinent family hx Social History Alcohol Use: none Smoking Status: Never smoker Drug Use: none Exam/Review of Systems Exam Vitals Vital Signs Date Temp Pulse Resp B/P (MAP) Pulse Ox O2 O2 Flow FiO2 Time Delivery Rate 12/06/18 102 16:00 12/06/18 102.8 16 101/69 [place] 15:30 (80) l Ventilato r 12/06/18 98 14:50 12/06/18 40 14:49 12/06/18 4.0 11:00 Constitutional: non-verbal Head: normocephalic, atraumatic Eyes: nl conjunctiva, nl lids ENMT: intubated Neck: supple, non-tender Respiratory: diminished breath sounds Cardiovascular: irregular rhythm Gastrointestinal: soft, nl liver, spleen, non-tender Extremities: normal pulses, other (cold ) Neurological: unresponsive Skin: nl turgor Results Result Diagram: 12/06/18 1531 12/06/18 1531 Results 24hrs Laboratory Tests Test 12/06/18 07:22 12/06/18 08:10 12/06/18 11:20 12/06/18 13:30 Hemoglobin A1c 12.9 H White Blood Count 8.6 Red Blood Count 3.28 L Hemoglobin 9.9 L Hematocrit 31.0 L Mean Corpuscular 94.5 Volume Mean Corpuscular 30.2 Hemoglobin Mean Corpuscular 31.9 L Hemoglobin Concent Red Cell 14.2 Distribution Width Platelet Count 142 Mean Platelet 10.0 Volume Immature 0.600 H Granulocytes % Neutrophils % 90.2 H Lymphocytes % 6.0 L Monocytes % 2.9 Eosinophils % 0.1 Basophils % 0.2 Nucleated Red 0.0 Blood Cells % Immature 0.050 H Granulocytes # Neutrophils # 7.7 H Lymphocytes # 0.5 L Monocytes # 0.3 Eosinophils # 0.0 Basophils # 0.0 Nucleated Red 0.0 Blood Cells # Prothrombin Time 14.9 Prothrombin Time 1.2 Ratio INR International 1.16 Normalized Ratio Sodium Level 138 Potassium Level 3.7 Chloride Level 91 L Carbon Dioxide 35 H Level Anion Gap 12 Blood Urea 15 Nitrogen Creatinine 3.05 H Est Glomerular 16 L Filtrat Rate mL/min Glucose Level 228 H Lactic Acid Level 3.1 *H Calcium Level 9.3 Total Bilirubin 0.7 Direct Bilirubin 0.00 Indirect Bilirubin 0.7 Aspartate Amino 21 Transf (AST/SGOT) Alanine 15 Aminotransferase ( ALT/SGPT) Alkaline 114 Phosphatase Troponin I < 0.012 Total Protein 7.9 Albumin 4.3 Globulin 3.60 H Albumin/Globulin 1.19 Ratio Iron Level 12 L Total Iron Binding 246 Capacity Percent Iron 5 L Saturation Blood Gas Specimen Blood arterial Source Arterial Blood 12/06/2018 2:18:55 Date Drawn PM Arterial Blood pH 7.514 H (Temp corrected) Arterial Blood 39.2 pCO2 (Temp correct) Arterial Blood pO2 259.9 H (Temp corrected) Arterial Blood 30.9 H HCO3 Arterial Blood 7.4 H Base Excess Arterial Blood 99.4 H Oxygen Saturation Stanislaw Test ACCEPTAB Arterial Blood Gas Left Radial Puncture Site Arterial 0.4 Blood Carboxyhemog lobin Arterial Blood 0 Methemoglobin Blood Gas A-a O2 413.9 H Differential Oxyhemoglobin 99.0 Percent Blood Gas 37.0 Temperature Blood Gas 16.0 Respiration Rate Blood Gas Actual 16 Respiration Rate Blood Gas Modality VENT - AC FiO2 100.0 Blood Gas Tidal 450.0 Volume Blood Gas Low PEEP 5.0 Setting Blood Gas Notified M.D. Whom Blood Gas Notified 12/06/2018 2:28:35 Time PM Test 12/06/18 15:31 12/06/18 15:33 12/06/18 15:56 White Blood Count 12.6 #H Red Blood Count 3.35 L Hemoglobin 10.1 L Hematocrit 32.7 L Mean Corpuscular 97.6 Volume Mean Corpuscular 30.1 Hemoglobin Mean Corpuscular 30.9 L Hemoglobin Concent Red Cell 14.3 Distribution Width Platelet Count 141 Mean Platelet 10.4 Volume Immature 1.300 H Granulocytes % Neutrophils % 91.2 H Lymphocytes % 4.8 L Monocytes % 2.5 Eosinophils % 0.0 Basophils % 0.2 Nucleated Red 0.2 H Blood Cells % Immature 0.160 H Granulocytes # Neutrophils # 11.5 H Lymphocytes # 0.6 L Monocytes # 0.3 Eosinophils # 0.0 Basophils # 0.0 Nucleated Red 0.0 Blood Cells # Prothrombin Time 17.7 H Prothrombin Time 1.4 Ratio INR International 1.45 Normalized Ratio Activated 39.[address] Time Fibrinogen 312.0 Sodium Level 138 Potassium Level 3.4 L Chloride Level 91 L Carbon Dioxide 33 H Level Anion Gap 14 H Blood Urea 21 H Nitrogen Creatinine 3.98 H Est Glomerular 12 L Filtrat Rate mL/min Glucose Level 304 H Lactic Acid Level 5.4 *H Calcium Level 10.2 Phosphorus Level 3.5 Magnesium Level 2.4 Amylase Level 32 Lipase 83 Creatine Kinase 102 Creatine Kinase 0.2 Index Creatinine Kinase < 0.22 MB (Mass) Troponin I < 0.012 Bedside Glucose 342 H Medications Medication Current Medications Ondansetron HCl (Zofran Inj) 4 mg Q6H PRN IV NAUSEA AND/OR VOMITING; Start 12/06/18 at 09:30 Albuterol (Proventil 0.083% (Neb)) 2.5 mg Q2H RESP THERAPY PRN NEB SHORTNESS OF BREATH; Start 12/06/18 at 09:30 Acetaminophen (Tylenol Tab) 650 mg Q6H PRN PO PAIN LEVEL 1-3 OR FEVER; Start 12/06/18 at 09:30 Docusate Sodium (Colace) 100 mg Q12H PRN PO CONSTIPATION; Start 12/06/18 at 09:30 Magnesium Hydroxide (Milk Of Mag) 30 ml DAILY PRN PO CONSTIPATION; Start 12/06/18 at 09:30 Pantoprazole (Protonix Tab) 40 mg DAILY@06 PO ; Start 12/07/18 at 06:00 Aspirin (Aspirin) 81 mg DAILY PO ; Start 12/06/18 at 10:30 Brimonidine Tartrate (Alphagan 0.2%) 1 drop DAILY BOTH EYES ; Start 12/06/18 at 11:00 Calcium Acetate (Phoslo) 667 mg WITH MEALS PO ; Start 12/06/18 at 12:00 Docusate Sodium (Colace) 200 mg DAILY PO ; Start 12/06/18 at 10:30 Lactulose (Enulose) 20 gm BID PO ; Start 12/06/18 at 21:00 Levetiracetam (Keppra) 500 mg BID PO ; Start 12/06/18 at 10:30 Montelukast Sodium (Singulair) 10 mg HS PO ; Start 12/06/18 at 21:00 Multivit/Ca Carb/ B Cmplx/FA/Prenat (Mariaelena-Rosas) 1 tab DAILY PO ; Start 12/06/18 at 10:30 Nifedipine (Procardia Xl) 30 mg DAILY PO ; Start 12/06/18 at 10:30 Phenytoin (Dilantin) 200 mg DAILY PO ; Start 12/06/18 at 10:30 Phenytoin (Dilantin) 200 mg WITH LUNCH PO ; Start 12/06/18 at 12:00 Phenytoin (Dilantin) 300 mg HS PO ; Start 12/06/18 at 21:00 Miscellaneous Information 1 ea NOTE XX ; Start 12/06/18 at 10:30 Metoprolol Tartrate (Lopressor) 150 mg BID PO ; Start 12/06/18 at 21:00 Benazepril HCl (Lotensin) 40 mg DAILY PO ; Start 12/06/18 at 12:00 Clonidine (Catapres) 0.2 mg TID PO ; Start 12/06/18 at 13:00 Norepinephrine 250 ml @ 1.875 mls/ hr TITRATE IV Last administered on 12/06/18at 16:03; Admin Dose 1.875 MLS/HR; Start 12/06/18 at 13:00 Lidocaine HCl/ Dextrose 500 ml @ 15 mls/hr Q24H IV Last administered on 12/06/18at 13:54; Admin Dose 15 MLS/HR; Start 12/06/18 at 13:30 Midazolam HCl 50 ml @ 3 mls/hr ONCE STAT IV ; Start 12/06/18 at 13:42; Stop 12/07/18 at 06:21 Fentanyl 100 ml @ 2.5 mls/hr TITRATE ONCE IV ; Start 12/06/18 at 14:00; Stop 12/08/18 at 05:59 Atropine Sulfate (Atropine (Syringe)) 1 mg PRN PRN IV prn; Start 12/06/18 at 16:00 Propofol 100 ml @ 3.045 mls/ hr Q12H IV Last administered on 12/06/18at 16:21; Admin Dose 24.36 MLS/HR; Start 12/06/18 at 16:30 Diagnostic Test (Pha) (Accu-Chek) 1 ea Q1H XX ; Start 12/06/18 at 16:30 Insulin Human Regular 100 unit/ Sodium Chloride 100 ml @ 0 mls/hr PER PROTOCOL IV ; Start 12/06/18 at 16:30 Miscellaneous Information (* Miscellaneous Pharmacy Order) Treatment of Hypoglycemia: 1.BG 51... Per protocol XX ; Start 12/06/18 at 16:30 Dextrose (D50w Syringe) 25 ml Q15M PRN IV .DECREASED GLUCOSE; Start 12/06/18 at 16:30 Dextrose (D50w Syringe) 50 ml Q15M PRN IV .DECREASED GLUCOSE; Start 12/06/18 at 16:30 Midazolam HCl 50 ml @ 1 mls/hr TITRATE IV ; Start 12/06/18 at 16:30 Potassium Chloride 100 ml @ 50 mls/hr Q2H IVPB ; Start 12/06/18 at 16:30; Stop 12/06/18 at 20:29 ORQUIDEA VALDEZ MD Dec 06, 2018 17:00
--- NOTE | 2018-12-06 17:04 | PRO ---
Date/Time of Note Date/Time of Note DATE: 12/06/18 TIME: 17:01 Femoral CV Placement PROCEDURE NOTE PROCEDURE: Left Internal Jugular 6 F introducer catheter insertion INDICATION: Need for intravenous access due to shock and possible transvenous pacing PROCEDURE MANAGER PARK: [place] CONSENT: Consent was implied due to the emergent nature of the procedure. PROCEDURE SUMMARY: The patient was prepped and draped in the usual sterile manner. 1% lidocaine was used to numb the region. Bedside U/S and a finder needle were used to locate the left internal jugular vein. A 6 F introducer catheter was inserted using the Seldinger technique though the guidewire would not advance past the 20 cm martina. The dilator and guidewire were removed. All ports aspirate and flushed without difficulty. The patient tolerated the procedure well without any immediate complications. The line was sutured into place and the area was cleaned and Tegaderm applied. ESTIMATED BLOOD LOSS: 3-4 ml ORQUIDEA VALDEZ MD Dec 06, 2018 17:04
[2018-12-06] MEDS ORDERED: VANCOMYCIN IV PER PHARMACY XX SCH (17:30)
[2018-12-06] MEDS: POTASSIUM CHLORIDE 100 ML IVPB SCH ×2 (17:31→21:08)
--- NOTE | 2018-12-06 17:59 | RADRPT ---
Echocardiogram Report Patient Name: TODD ESPANAPatient ID: [id number] : 1970 (47y 11m)Study Date: 12/06/2018 3:34:57 PM Gender: FAccession #: [id number] Tech: Keshia Felipe RDCS Location: ICU 103 Ref.Physician: BEAN BEST Height(Cm): BSA: Weight(Kg): Quality: Technically Difficult StudyAccount #: Procedures: Echocardiographic Report: Transthoracic echocardiogram with complete 2D, M-Mode, and doppler examination. Indications: Cardiac Arrest. Measurements: 2D/M Mode Doppler Measurement Value Normal Range Measurement Value Normal Range IVS/LVPW 2D 0.9 ratio LVOT Peak Leonardo 0.3 [ 70.0 - 110.0 ] cm/sec AoR Diam 2D 2.1 [ 2.3 - 3.1 ] cm MV E Peak Leonardo 0.4 [ 60.0 - 130.0 ] cm/sec LA/Ao 2D 1 ratio MV A Peak Leonardo 0.2 [ 100.0 - 120.0 ] cm/sec MV E/A 2.1 [ 0.8 - 1.5 ] ratio MV Decel Time 134 [ 104 - 258 ] msec MV E/A 2.1 [ 0.8 - 1.5 ] ratio TR Peak Leonardo 1.9 [ 100.0 - 280.0 ] cm/sec TR Peak PG 14.0 mmHg Findings: Left Ventricle: Moderate global left ventricular systolic dysfunction. Ejection fraction is visually estimated at 35 %. Right Ventricle: Severe enlargement of right ventricle. Severe right ventricular hypokinesis. Left Atrium: There is moderate enlargement of left atrium. Right Atrium: There is moderate enlargement of right atrium. Atrial Septum: Normal atrial septum. Ventricular septum: Normal/intact ventricular septum. Mitral Valve: Mild mitral annular calcification. Mild mitral valve regurgitation. Aortic Valve: Aortic sclerosis without significant stenosis. No aortic regurgitation. Tricuspid Valve: Normal appearance of the tricuspid valve. Unable to obtain RVSP due to minimal presence of tricuspid regurgitation. There is mild to moderate tricuspid regurgitation. Pulmonic Valve: Normal pulmonic valve appearance. Pericardium: Normal pericardium with no significant pericardial effusion. Aorta: Not well visualized. IVC: The IVC is not well visualized. Pulmonary Artery: Not well visualized. Conclusions: Very difficult and poor study with poor endocardial visualization. Moderate global left ventricular systolic dysfunction. Ejection fraction is visually estimated at 35 % but may not be accurate. Severe enlargement of right ventricle. Severe right ventricular hypokinesis. D-shaped septum in systole and diastole consistent with volume and pressure overload. Unable to obtain RVSP due to minimal presence of tricuspid regurgitation. There is mild to moderate tricuspid regurgitation. Electronically Signed By: Ben Dickens 2018-12-06 17:59:15 PDT
[2018-12-06] MEDS: INSULIN HUMAN REGULAR 100 UNIT in SOD CHLORIDE 0.9% 99 ML IV SCH (18:05)
[2018-12-06] MEDS ORDERED: ACETAMINOPHEN 650 MG SUPP PR PRN (18:30)
[2018-12-06] MEDS ORDERED: MEPERIDINE 25 MG INJ IV PRN ×2 (18:30)
[2018-12-06] MEDS ORDERED: VANCOMYCIN HCL 2 GM in SOD CHLORIDE 0.9% 500 ML IVPB SCH (18:30)
[2018-12-06] MEDS ORDERED: ACETAMINOPHEN 650MG/20.3ML CUP PO PRN (18:30)
[2018-12-06] MEDS ORDERED: POTASSIUM CHLORIDE 50 ML IVPB PRN (20:30)
[2018-12-06] MEDS ORDERED: MAGNESIUM SULFATE 2 GM/50 ML 50 ML IVPB PRN (20:30)
[2018-12-06] MEDS: DOPamine-D5W 1.6 MG/ML 250 ML IV SCH (20:51)
[2018-12-06] MEDS ORDERED: HEPARIN 5,000 UNIT/1 ML VIAL SC SCH (21:00)
[2018-12-06] MEDS ORDERED: MONTELUKAST 10 MG TAB PO SCH (21:00)
[2018-12-06] MEDS: LACTULOSE 30ML CUP PO SCH (21:00)
[2018-12-06] MEDS ORDERED: METOPROLOL 50 MG TAB PO SCH (21:00)
[2018-12-06] MEDS ORDERED: SODIUM CHLORIDE 0.9% 1L BAG IV PRN (22:00)
[2018-12-06] MEDS ORDERED: HEPARIN 1000 UNITS/ML 10 ML INJ CATHETER SCH (22:00)
[2018-12-06] MEDS: CEFEPIME 1GM/50 ML (PMX) 50 ML IVPB SCH (22:37)
[2018-12-06] MEDS: LEVETIRACETAM 500 MG (PMX) 100 ML IVPB SCH (23:26)
[2018-12-07] VITALS (100 sets, daily range): BP systolic 51–191; BP diastolic 39–104; PULSE 47–88; RESP 10–21
[2018-12-07] MEDS: ACCU-CHEK XX SCH ×23 (00:42→22:31)
[2018-12-07] MEDS: OCULAR LUBRICANT 3.5 GM OPH OINT BOTH EYES SCH ×4 (01:03→17:34)
[2018-12-07] MEDS: ARTIFICIAL TEARS 15 ML OPH BOTH EYES SCH ×4 (01:04→17:34)
[2018-12-07] MEDS: POTASSIUM CHLORIDE 50 ML IVPB SCH ×3 (01:45→06:08)
[2018-12-07] MEDS: PROPOFOL 100 ML IV SCH (02:24)
[2018-12-07] MEDS: PANTOPRAZOLE 40 MG INJ IV SCH (05:07)
--- NOTE | 2018-12-07 05:12 | CONS ---
Assessment/Plan Assessment/Plan Assessment/Plan (Daily) - Cardiogenic shock - Continue on Dopamine and Levophed - cont ICU care -ESRD on HD - HD. T/T/S scheduled - SP Acute cardiac arrest with ROSC - Currently on hypothermia protocol - POSSIBLE Arrhythmia, NSV - Sepsis of unknown source - Hypokalemia - replaced - DM - h/o CVA - continue current medications - HTN - SBP at time of admission in the 200s. Critical care time spent is 30 minutes.Patient seen in collaboration with Dr Reddy. [facility] staff Consultation Date/Type/Reason Admit Date/Time Dec 06, 2018 at 12:45 Initial Consult Date 12/06/18 Type of Consult NEPHROLOGY Requesting Provider: BEAN BEST MD Date/Time of Note DATE: 12/07/18 TIME: 05:07 24 HR Interval Summary Subjective hx not possible: pt non-verbal, pt critical Constitutional: requiring IVF, requiring O2 Exam/Review of Systems Exam Vitals Vital Signs Date Temp Pulse Resp B/P (MAP) Pulse Ox O2 O2 Flow FiO2 Time Delivery Rate 12/07/18 91.5 50 14 97/51 (66) 100 05:00 12/07/18 Mechanical 04:00 Ventilator 12/07/18 40 03:10 12/06/18 4.0 11:00 Intake and Output 12/06/18 12/06/18 12/07/18 1515:00 23:00 07:00 IntakeIntake Total 540.700 ml 349.346 ml BalanceBalance 540.700 ml 349.346 ml Constitutional: well developed, non-verbal, obese Psych: nl mood/affect Eyes: nl lids ENMT: nl external ears & nose Neck: other (ET tube intact) Respiratory: diminished breath sounds Cardiovascular: nl pulses, other Gastrointestinal: soft, other Musculoskeletal: muscle weakness, range of motion Extremities: edema Neurological: unresponsive Results Result Diagram: 12/07/18 0018 12/07/18 0018 Results 24hrs Laboratory Tests Test 12/06/18 07:22 12/06/18 08:10 12/06/18 11:20 12/06/18 13:30 Hemoglobin A1c 12.9 H White Blood 8.6 Count Red Blood Count 3.28 L Hemoglobin 9.9 L Hematocrit 31.0 L Mean Corpuscular 94.5 Volume Mean Corpuscular 30.2 Hemoglobin Mean Corpuscular 31.9 L Hemoglobin Irasema nt Red Cell 14.2 Distribution Width Platelet Count 142 Mean Platelet 10.0 Volume Immature 0.600 H Granulocytes % Neutrophils % 90.2 H Lymphocytes % 6.0 L Monocytes % 2.9 Eosinophils % 0.1 Basophils % 0.2 Nucleated Red 0.0 Blood Cells % Immature 0.050 H Granulocytes # Neutrophils # 7.7 H Lymphocytes # 0.5 L Monocytes # 0.3 Eosinophils # 0.0 Basophils # 0.0 Nucleated Red 0.0 Blood Cells # Prothrombin Time 14.9 Prothrombin Time 1.2 Ratio INR 1.16 International Normalized Ratio Sodium Level 138 Potassium Level 3.7 Chloride Level 91 L Carbon Dioxide 35 H Level Anion Gap 12 Blood Urea 15 Nitrogen Creatinine 3.05 H Est Glomerular 16 L Filtrat Rate mL/min Glucose Level 228 H Lactic Acid 3.1 *H Level Calcium Level 9.3 Total Bilirubin 0.7 Direct Bilirubin 0.00 Indirect 0.7 Bilirubin Aspartate Amino 21 Transf (AST/SGOT ) Alanine 15 Aminotransferase (ALT/SGPT) Alkaline 114 Phosphatase Troponin I < 0.012 Total Protein 7.9 Albumin 4.3 Globulin 3.60 H Albumin/Globulin 1.19 Ratio Iron Level 12 L Total Iron 246 Binding Capacity Percent Iron 5 L Saturation Blood Gas Blood arterial Specimen Source Arterial Blood 12/06/2018 2:18:55 Date Drawn PM Arterial Blood 7.514 H pH (Temp corrected) Arterial Blood 39.2 pCO2 (Temp correct) Arterial Blood 259.9 H pO2 (Temp corrected) Arterial Blood 30.9 H HCO3 Arterial Blood 7.4 H Base Excess Arterial Blood 99.4 H Oxygen Saturatio n Stanislaw Test ACCEPTAB Arterial Blood Left Radial Gas Puncture Site Arterial 0.4 Blood Carboxyhem oglobin Arterial Blood 0 Methemoglobin Blood Gas A-a O2 413.9 H Differential Oxyhemoglobin 99.0 Percent Blood Gas 37.0 Temperature Blood Gas 16.0 Respiration Rate Blood Gas Actual 16 Respiration Rate Blood Gas VENT - AC Modality FiO2 100.0 Blood Gas Tidal 450.0 Volume Blood Gas Low 5.0 PEEP Setting Blood Gas M.D. Notified Whom Blood Gas 12/06/2018 2:28:35 Notified Time PM Test 12/06/18 15:31 12/06/18 15:33 12/06/18 15:41 12/06/18 15:56 White Blood 12.6 #H Count Red Blood Count 3.35 L Hemoglobin 10.1 L Hematocrit 32.7 L Mean Corpuscular 97.6 Volume Mean Corpuscular 30.1 Hemoglobin Mean Corpuscular 30.9 L Hemoglobin Irasema nt Red Cell 14.3 Distribution Width Platelet Count 141 Mean Platelet 10.4 Volume Immature 1.300 H Granulocytes % Neutrophils % 91.2 H Lymphocytes % 4.8 L Monocytes % 2.5 Eosinophils % 0.0 Basophils % 0.2 Nucleated Red 0.2 H Blood Cells % Immature 0.160 H Granulocytes # Neutrophils # 11.5 H Lymphocytes # 0.6 L Monocytes # 0.3 Eosinophils # 0.0 Basophils # 0.0 Nucleated Red 0.0 Blood Cells # Prothrombin Time 17.7 H Prothrombin Time 1.4 Ratio INR 1.45 International Normalized Ratio Activated 39.6 H Partial Thrombop last Time Fibrinogen 312.0 Sodium Level 138 Potassium Level 3.4 L Chloride Level 91 L Carbon Dioxide 33 H Level Anion Gap 14 H Blood Urea 21 H Nitrogen Creatinine 3.98 H Est Glomerular 12 L Filtrat Rate mL/min Glucose Level 304 H Lactic Acid 5.4 *H Level Calcium Level 10.2 Phosphorus Level 3.5 Magnesium Level 2.4 Amylase Level 32 Lipase 83 Creatine Kinase 102 Creatine Kinase 0.2 Index Creatinine < 0.22 Kinase MB (Mass) Troponin I < 0.012 Blood Gas Blood arterial Specimen Source Arterial Blood 12/06/2018 5:20:02 Date Drawn PM Arterial Blood 7.479 H pH (Temp corrected) Arterial Blood 47.1 H pCO2 (Temp correct) Arterial Blood 57.5 L pO2 (Temp corrected) Arterial Blood 35.6 H HCO3 Arterial Blood 9.4 H Base Excess Arterial Blood 93.8 L Oxygen Saturatio n Stanislaw Test ACCEPTAB Arterial Blood Left Radial Gas Puncture Site Arterial 1.0 Blood Carboxyhem oglobin Arterial Blood 0 Methemoglobin Blood Gas A-a O2 177.3 H Differential Oxyhemoglobin 92.9 L Percent Blood Gas 33.0 Temperature Blood Gas 16.0 Respiration Rate Blood Gas Actual 17 Respiration Rate Blood Gas VENT - AC Modality FiO2 40.0 Blood Gas Tidal 450.0 Volume Blood Gas Low 5.0 PEEP Setting Blood Gas M.D. Notified Whom Blood Gas 12/06/2018 5:33:36 Notified Time PM Bedside Glucose 342 H Test 12/06/18 18:02 12/06/18 19:44 12/06/18 19:46 12/06/18 20:38 Bedside Glucose 308 H 281 H 307 H Creatine Kinase 125 Creatine Kinase 0.2 Index Creatinine < 0.22 Kinase MB (Mass) Troponin I < 0.012 Test 12/06/18 21:28 12/06/18 22:35 12/06/18 23:28 12/07/18 00:13 Bedside Glucose 291 H 253 H 234 H Blood Gas Blood arterial Specimen Source Arterial Blood 12/07/2018 12:50:4 Date Drawn 4 AM Arterial Blood 7.632 *H pH (Temp corrected) Arterial Blood 30.2 L pCO2 (Temp correct) Arterial Blood 78.0 L pO2 (Temp corrected) Arterial Blood 32.1 H HCO3 Arterial Blood 9.5 H Base Excess Arterial Blood 97.3 Oxygen Saturatio n Stanislaw Test ACCEPTAB Arterial Blood Left Radial Gas Puncture Site Arterial 0.8 Blood Carboxyhem oglobin Arterial Blood 0.3 Methemoglobin Blood Gas A-a O2 176.0 H Differential Oxyhemoglobin 96.2 Percent Blood Gas 33.2 Temperature Blood Gas 16.0 Respiration Rate Blood Gas Actual 16 Respiration Rate Blood Gas VENT - AC Modality FiO2 40.0 Blood Gas Tidal 450.0 Volume Blood Gas Low 5.0 PEEP Setting Blood Gas JPACOL RN Critical Value Read Back Blood Gas MA Notified Whom Blood Gas 12/07/2018 1:05:41 Notified Time AM Test 12/07/18 00:18 12/07/18 00:41 12/07/18 01:38 12/07/18 02:33 White Blood 6.7 # Count Red Blood Count 3.02 L Hemoglobin 9.5 L Hematocrit 28.5 L Mean Corpuscular 94.4 Volume Mean Corpuscular 31.5 Hemoglobin Mean Corpuscular 33.3 Hemoglobin Irasema nt Red Cell 14.1 Distribution Width Platelet Count 111 #L Mean Platelet 10.8 H Volume Immature 0.600 H Granulocytes % Neutrophils % 93.6 H Lymphocytes % 2.8 L Monocytes % 2.7 Eosinophils % 0.0 Basophils % 0.3 Nucleated Red 0.0 Blood Cells % Immature 0.040 H Granulocytes # Neutrophils # 6.3 Lymphocytes # 0.2 L Monocytes # 0.2 L Eosinophils # 0.0 Basophils # 0.0 Nucleated Red 0.0 Blood Cells # Sodium Level 137 Potassium Level 2.5 *L Chloride Level 90 L Carbon Dioxide 36 H Level Anion Gap 11 Blood Urea 25 H Nitrogen Creatinine 4.10 H Est Glomerular 12 L Filtrat Rate mL/min Glucose Level 197 # Lactic Acid 3.0 *H Level Calcium Level 9.0 Phosphorus Level 1.3 #L Magnesium Level 2.1 Troponin I 0.013 Bedside Glucose 190 166 133 Test 12/07/18 04:29 Bedside Glucose 143 Medications Medication Current Medications Ondansetron HCl (Zofran Inj) 4 mg Q6H PRN IV NAUSEA AND/OR VOMITING; Start 12/06/18 at 09:30 Albuterol (Proventil 0.083% (Neb)) 2.5 mg Q2H RESP THERAPY PRN NEB SHORTNESS OF BREATH; Start 12/06/18 at 09:30 Acetaminophen (Tylenol Tab) 650 mg Q6H PRN PO PAIN LEVEL 1-3 OR FEVER; Start 12/06/18 at 09:30 Docusate Sodium (Colace) 100 mg Q12H PRN PO CONSTIPATION; Start 12/06/18 at 09:30 Magnesium Hydroxide (Milk Of Mag) 30 ml DAILY PRN PO CONSTIPATION; Start 12/06 at 09:30 Aspirin (Aspirin) 81 mg DAILY PO ; Start 12/06/18 at 10:30 Brimonidine Tartrate (Alphagan 0.2%) 1 drop DAILY BOTH EYES ; Start 12/06/18 at 11:00 Calcium Acetate (Phoslo) 667 mg WITH MEALS PO ; Start 12/06/18 at 12:00 Docusate Sodium (Colace) 200 mg DAILY PO ; Start 12/06/18 at 10:30; Status Hold Lactulose (Enulose) 20 gm BID PO ; Start 12/06/18 at 21:00 Montelukast Sodium (Singulair) 10 mg HS PO ; Start 12/06/18 at 21:00; Status Hold Multivit/Ca Carb/ B Cmplx/FA/Prenat (Mariaelena-Rosas) 1 tab DAILY PO ; Start 12/06/18 at 10:30 Nifedipine (Procardia Xl) 30 mg DAILY PO ; Start 12/06/18 at 10:30 Miscellaneous Information 1 ea NOTE XX ; Start 12/06/18 at 10:30 Metoprolol Tartrate (Lopressor) 150 mg BID PO ; Start 12/06/18 at 21:00; Status Hold Benazepril HCl (Lotensin) 40 mg DAILY PO ; Start 12/06/18 at 12:00 Clonidine (Catapres) 0.2 mg TID PO ; Start 12/06/18 at 13:00; Status Hold Norepinephrine 250 ml @ 1.875 mls/ hr TITRATE IV Last administered on 12/06/18 16:03; Admin Dose 1.875 MLS/HR; Start 12/06/18 at 13:00 Fentanyl 100 ml @ 2.5 mls/hr TITRATE ONCE IV Last administered on 12/06/18 18:27; Admin Dose 2.5 MLS/HR; Start 12/06/18 at 14:00; Stop 12/08/18 at 05:59 Atropine Sulfate (Atropine (Syringe)) 1 mg PRN PRN IV prn Last administered on 12/06/18at 16:49; Admin Dose 1 MG; Start 12/06/18 at 16:00 Propofol 100 ml @ 3.045 mls/ hr Q12H IV Last administered on 12/07/18 02:24; Admin Dose 24.36 MLS/HR; Start 12/06/18 at 16:30 Diagnostic Test (Pha) (Accu-Chek) 1 ea Q1H XX Last administered on 12/07/18 04:29; Admin Dose 1 EA; Start 12/06/18 at 16:30 Insulin Human Regular 100 unit/ Sodium Chloride 100 ml @ 0 mls/hr PER PROTOCOL IV Last administered on 12/06/18 18:05; Admin Dose 4 MLS/HR; Start 12/06/18 at 16:30 Miscellaneous Information (* Miscellaneous Pharmacy Order) Treatment of Hypoglycemia: 1.BG 51... Per protocol XX ; Start 12/06/18 at 16:30 Dextrose (D50w Syringe) 25 ml Q15M PRN IV .DECREASED GLUCOSE; Start 12/06/18 at 16:30 Dextrose (D50w Syringe) 50 ml Q15M PRN IV .DECREASED GLUCOSE; Start 12/06/18 at 16:30 Midazolam HCl 50 ml @ 1 mls/hr TITRATE IV ; Start 12/06/18 at 16:30 Vancomycin HCl (Vanco Iv Per Pharmacy) VANCOMYCIN PER PHARMACY PER PROTOCOL XX ; Start 12/06/18 at 17:30 Cefepime HCl 50 ml @ 100 mls/hr Q24H IVPB Last administered on 12/06/18at 22:37; Admin Dose 100 MLS/HR; Start 12/06/18 at 21:00 Levetiracetam 100 ml @ 400 mls/hr Q12 IVPB Last administered on 12/06/18at 23:26; Admin Dose 400 MLS/HR; Start 12/06/18 at 21:00 Dopamine HCl/ Dextrose 250 ml @ 7.613 mls/ hr TITRATE IV Last administered on 12/06/18at 20:51; Admin Dose 7.613 MLS/HR; Start 12/06/18 at 17:30 Acetaminophen (Tylenol Supp) 650 mg Q4H PRN [place] TEMP > 37C; Start 12/06/18 at 18:30 Acetaminophen (Tylenol Liquid) 650 mg Q4H PRN PO TEMP > 37C; Start 12/06/18 at 18:30 Acetaminophen (Tylenol Supp) 500 mg Q6H [place] ; Start 12/07/18 at 18:30 Acetaminophen (Tylenol Liquid) 500 mg Q6H PO ; Start 12/07/18 at 18:30 Meperidine HCl (Demerol) 12.5 mg Q4H PRN IV POST OPERATIVE SHIVERING; Start 12/06/18 at 18:30 Meperidine HCl (Demerol) 25 mg Q4H PRN IV POST OPERATIVE SHIVERING; Start 12/06/18 at 18:30 Eye Lubricant (Akwa Oint) 1 applic Q6 BOTH EYES Last administered on 12/07/18at 01:03; Admin Dose 1 APPLIC; Start 12/07/18 at 00:00 Eye Lubricant (Artificial Tears Oph) 2 drop Q6 BOTH EYES Last administered on 12/07/18at 01:04; Admin Dose 2 DROP; Start 12/07/18 at 00:00 Magnesium Sulfate 50 ml @ 25 mls/hr PRN PRN IVPB IV PROTOCOL; Start 12/06/18 at 20:30 Potassium Chloride 50 ml @ 25 mls/hr PRN PRN IVPB IV PROTOCOL; Start 12/06/18 at 20:30 Heparin Sodium (Porcine) (Heparin (1000 Units/ml)) 4,000 unit AFTER DIALYSIS CATHETER ; Start 12/06/18 at 22:00 Albumin Human 100 ml @ 100 mls/hr WITH DIALYSIS PRN IV SBP <90 DURING DIALYSIS; Start 12/06/18 at 22:00 Sodium Chloride (NS) -To prime the dialy... DIRECTED FOR HD PRN IV HD; Start 12/06/18 at 22:00 Phenytoin 200 mg/ Sodium Chloride 54 ml @ 112 mls/hr AM IV ; Start 12/07/18 at 09:00 Phenytoin 200 mg/ Sodium Chloride 54 ml @ 112 mls/hr PC LUNCH IV ; Start 12/07/18 at 12:30 Phenytoin 300 mg/ Sodium Chloride 56 ml @ 112 mls/hr 2100 IV ; Start 12/07/18 at 21:00 Pantoprazole (Protonix Iv) 40 mg DAILY@06 IV ; Start 12/07/18 at 06:00 Potassium Chloride 50 ml @ 25 mls/hr Q2H IVPB Last administered on 12/07/18at 03:50; Admin Dose 25 MLS/HR; Start 12/07/18 at 02:00; Stop 12/07/18 at 07:59 EMMETT FRANCIS Dec 07, 2018 05:12
[2018-12-07] MEDS ORDERED: PANTOPRAZOLE (EC) 40 MG TAB PO SCH (06:00)
[2018-12-07] MEDS: INSULIN HUMAN REGULAR 100 UNIT in SOD CHLORIDE 0.9% 99 ML IV SCH (06:32)
[2018-12-07] MEDS: CALCIUM ACETATE 667 MG CAP PO SCH ×3 (07:35→15:48)
[2018-12-07] MEDS: ASPIRIN 81 MG TAB PO SCH (08:03)
[2018-12-07] MEDS: LACTULOSE 30ML CUP PO SCH ×2 (08:03→20:17)
[2018-12-07] MEDS: BENAZEPRIL 40 MG TAB PO SCH (08:20)
[2018-12-07] MEDS: NIFEdipine (XL) 30 MG TAB PO SCH (08:20)
[2018-12-07] MEDS: MULTIVIT/CA CARB/B CMPLX/FA TAB PO SCH (08:20)
[2018-12-07] MEDS: MIDAZOLAM (DRIP) 50 mg/50 mL 50 ML IV SCH ×2 (08:50→17:31)
[2018-12-07] MEDS ORDERED: PREDNISOLONE ACET 1% 5 ML OPH BOTH EARS SCH (09:00)
--- NOTE | 2018-12-07 09:06 | PN ---
Date/Time of Note Date/Time of Note DATE: 12/07/18 TIME: 09:06 Assessment/Plan VTE Prophylaxis Risk score (from Nsg)>0 risk: 7 SCD applied (from Nsg): Yes Pharmacological prophylaxis: heparin Lines/Catheters IV Catheter Type (from Nrsg): Introducer Urinary Cath still in place: Yes Reason Cath still needed: pres ulcer contaminated by urine, terminal illness/intractable pain Assessment/Plan Assessment/Plan 1. S/p Cardiac arrest with ROSC - Patient is currently undergoing hypothermia protocol and will continue monitoring neurological status - Patient initially with NSVT and given prolonged QT and placement on Amiodarone went into torsades then coded. Patient coded another 3 times total secondary to PEA arrest with ROSC - Cardiology on board and appreciate recommendations. Continue on Dopamine and Levophed. Will need Cardiac cath if patient recovers - trops remain negative indicating non ischemic etiology for arrest 2. ?Arrhythmia, NSVT - Patient has ? afib and may have had afib with aberrancy but initial event was not captured - EKG showing prolonged QT - noted on Coumadin on med rec but INR normal at time of presentation. Will need to touch base with fam vs patient when she recovers on why she takes Coumadin 3. Cardiogenic shock - Continue on Dopamine and Levophed 4. Sepsis of unknown source - likely aspiration given multiple cardiac arrest episodes. CXR from this am still pending - snider cultures drawn and continue on current broad antibiotics - LA normalized 5. Hypokalemia - replacing 6. DM - will start insulin drip for now - A1c noted and uncontrolled - discussed with family need for better glucose control after discharge 7. ESRD on HD - Nephrology,Dr. Reddy, on board and appreciate consultation. T/T/S scheduled 8. h/o CVA - continue current medications 9. HTN - currently requiring pressor support 10. Disposition - Continue hypothermia per protocol which is scheduled to end tonight and initiate rewarming phase. Continue monitoring for improvement in mentation - Palliative on board. Family would like patient to remain full code for now >45 minutes of critical care time spent with patient and family at bedside Result Diagram: 12/07/18 0550 12/07/18 0550 Results 24hrs Laboratory Tests Test 12/06/18 11:20 12/06/18 13:30 12/06/18 15:31 12/06/18 15:33 Iron Level 12 L Total Iron 246 Binding Capacity Percent Iron 5 L Saturation Blood Gas Blood arterial Specimen Source Arterial Blood 12/06/2018 2:18:55 Date Drawn PM Arterial Blood 7.514 H pH (Temp corrected) Arterial Blood 39.2 pCO2 (Temp correct) Arterial Blood 259.9 H pO2 (Temp corrected) Arterial Blood 30.9 H HCO3 Arterial Blood 7.4 H Base Excess Arterial Blood 99.4 H Oxygen Saturatio n Stanislaw Test ACCEPTAB Arterial Blood Left Radial Gas Puncture Site Arterial 0.4 Blood Carboxyhem oglobin Arterial Blood 0 Methemoglobin Blood Gas A-a O2 413.9 H Differential Oxyhemoglobin 99.0 Percent Blood Gas 37.0 Temperature Blood Gas 16.0 Respiration Rate Blood Gas Actual 16 Respiration Rate Blood Gas VENT - AC Modality FiO2 100.0 Blood Gas Tidal 450.0 Volume Blood Gas Low 5.0 PEEP Setting Blood Gas M.D. Notified Whom Blood Gas 12/06/2018 2:28:35 Notified Time PM White Blood 12.6 #H Count Red Blood Count 3.35 L Hemoglobin 10.1 L Hematocrit 32.7 L Mean Corpuscular 97.6 Volume Mean Corpuscular 30.1 Hemoglobin Mean Corpuscular 30.9 L Hemoglobin Irasema nt Red Cell 14.3 Distribution Width Platelet Count 141 Mean Platelet 10.4 Volume Immature 1.300 H Granulocytes % Neutrophils % 91.2 H Lymphocytes % 4.8 L Monocytes % 2.5 Eosinophils % 0.0 Basophils % 0.2 Nucleated Red 0.2 H Blood Cells % Immature 0.160 H Granulocytes # Neutrophils # 11.5 H Lymphocytes # 0.6 L Monocytes # 0.3 Eosinophils # 0.0 Basophils # 0.0 Nucleated Red 0.0 Blood Cells # Prothrombin Time 17.7 H Prothrombin Time 1.4 Ratio INR 1.45 International Normalized Ratio Activated 39.6 H Partial Thrombop last Time Fibrinogen 312.0 Sodium Level 138 Potassium Level 3.4 L Chloride Level 91 L Carbon Dioxide 33 H Level Anion Gap 14 H Blood Urea 21 H Nitrogen Creatinine 3.98 H Est Glomerular 12 L Filtrat Rate mL/min Glucose Level 304 H Lactic Acid 5.4 *H Level Calcium Level 10.2 Phosphorus Level 3.5 Magnesium Level 2.4 Amylase Level 32 Lipase 83 Creatine Kinase 102 Creatine Kinase 0.2 Index Creatinine < 0.22 Kinase MB (Mass) Troponin I < 0.012 Test 12/06/18 15:41 12/06/18 15:56 12/06/18 18:02 12/06/18 19:44 Blood Gas Blood arterial Specimen Source Arterial Blood 12/06/2018 5:20:02 Date Drawn PM Arterial Blood 7.479 H pH (Temp corrected) Arterial Blood 47.1 H pCO2 (Temp correct) Arterial Blood 57.5 L pO2 (Temp corrected) Arterial Blood 35.6 H HCO3 Arterial Blood 9.4 H Base Excess Arterial Blood 93.8 L Oxygen Saturatio n Stanislaw Test ACCEPTAB Arterial Blood Left Radial Gas Puncture Site Arterial 1.0 Blood Carboxyhem oglobin Arterial Blood 0 Methemoglobin Blood Gas A-a O2 177.3 H Differential Oxyhemoglobin 92.9 L Percent Blood Gas 33.0 Temperature Blood Gas 16.0 Respiration Rate Blood Gas Actual 17 Respiration Rate Blood Gas VENT - AC Modality FiO2 40.0 Blood Gas Tidal 450.0 Volume Blood Gas Low 5.0 PEEP Setting Blood Gas M.D. Notified Whom Blood Gas 12/06/2018 5:33:36 Notified Time PM Bedside Glucose 342 H 308 H Creatine Kinase 125 Creatine Kinase 0.2 Index Creatinine < 0.22 Kinase MB (Mass) Troponin I < 0.012 Test 12/06/18 19:46 12/06/18 20:38 12/06/18 21:28 12/06/18 22:35 Bedside Glucose 281 H 307 H 291 H 253 H Test 12/06/18 23:28 12/07/18 00:13 12/07/18 00:18 12/07/18 00:41 Bedside Glucose 234 H 190 Blood Gas Blood arterial Specimen Source Arterial Blood 12/07/2018 12:50:4 Date Drawn 4 AM Arterial Blood 7.632 *H pH (Temp corrected) Arterial Blood 30.2 L pCO2 (Temp correct) Arterial Blood 78.0 L pO2 (Temp corrected) Arterial Blood 32.1 H HCO3 Arterial Blood 9.5 H Base Excess Arterial Blood 97.3 Oxygen Saturatio n Stanislaw Test ACCEPTAB Arterial Blood Left Radial Gas Puncture Site Arterial 0.8 Blood Carboxyhem oglobin Arterial Blood 0.3 Methemoglobin Blood Gas A-a O2 176.0 H Differential Oxyhemoglobin 96.2 Percent Blood Gas 33.2 Temperature Blood Gas 16.0 Respiration Rate Blood Gas Actual 16 Respiration Rate Blood Gas VENT - AC Modality FiO2 40.0 Blood Gas Tidal 450.0 Volume Blood Gas Low 5.0 PEEP Setting Blood Gas JPACOL RN Critical Value Read Back Blood Gas MA Notified Whom Blood Gas 12/07/2018 1:05:41 Notified Time AM White Blood 6.7 # Count Red Blood Count 3.02 L Hemoglobin 9.5 L Hematocrit 28.5 L Mean Corpuscular 94.4 Volume Mean Corpuscular 31.5 Hemoglobin Mean Corpuscular 33.3 Hemoglobin Irasema nt Red Cell 14.1 Distribution Width Platelet Count 111 #L Mean Platelet 10.8 H Volume Immature 0.600 H Granulocytes % Neutrophils % 93.6 H Lymphocytes % 2.8 L Monocytes % 2.7 Eosinophils % 0.0 Basophils % 0.3 Nucleated Red 0.0 Blood Cells % Immature 0.040 H Granulocytes # Neutrophils # 6.3 Lymphocytes # 0.2 L Monocytes # 0.2 L Eosinophils # 0.0 Basophils # 0.0 Nucleated Red 0.0 Blood Cells # Sodium Level 137 Potassium Level 2.5 *L Chloride Level 90 L Carbon Dioxide 36 H Level Anion Gap 11 Blood Urea 25 H Nitrogen Creatinine 4.10 H Est Glomerular 12 L Filtrat Rate mL/min Glucose Level 197 # Lactic Acid 3.0 *H Level Calcium Level 9.0 Phosphorus Level 1.3 #L Magnesium Level 2.1 Troponin I 0.013 Test 12/07/18 01:38 12/07/18 02:33 12/07/18 04:29 12/07/18 05:50 Bedside Glucose 166 133 143 White Blood 6.8 Count Red Blood Count 3.39 L Hemoglobin 10.5 L Hematocrit 31.9 L Mean Corpuscular 94.1 Volume Mean Corpuscular 31.0 Hemoglobin Mean Corpuscular 32.9 Hemoglobin Irasema nt Red Cell 14.1 Distribution Width Platelet Count 107 L Mean Platelet 10.9 H Volume Immature 0.600 H Granulocytes % Neutrophils % 90.7 H Lymphocytes % 4.3 L Monocytes % 4.3 Eosinophils % 0.0 Basophils % 0.1 Nucleated Red 0.0 Blood Cells % Immature 0.040 H Granulocytes # Neutrophils # 6.2 Lymphocytes # 0.3 L Monocytes # 0.3 Eosinophils # 0.0 Basophils # 0.0 Nucleated Red 0.0 Blood Cells # Sodium Level 138 Potassium Level 2.9 *L Chloride Level 94 L Carbon Dioxide 36 H Level Anion Gap 8 Blood Urea 26 H Nitrogen Creatinine 4.35 H Est Glomerular 11 L Filtrat Rate mL/min Glucose Level 122 # Lactic Acid 1.9 Level Calcium Level 9.0 Phosphorus Level 1.3 L Magnesium Level 2.1 Total Bilirubin 0.7 Direct Bilirubin 0.00 Indirect 0.7 Bilirubin Aspartate Amino 81 H Transf (AST/SGOT ) Alanine 55 Aminotransferase (ALT/SGPT) Alkaline 79 Phosphatase Troponin I 0.016 Total Protein 6.1 # Albumin 3.0 #L Globulin 3.10 Albumin/Globulin 0.96 Ratio Free Thyroxine 2.92 Index Thyroxine (T4) 6.5 Triiodothyronine 44.9 H (T3) Uptake Test 12/07/18 06:13 12/07/18 06:28 Blood Gas Blood arterial Specimen Source Arterial Blood 12/07/2018 6:00:33 Date Drawn AM Arterial Blood 7.556 *H pH (Temp corrected) Arterial Blood 39.4 pCO2 (Temp correct) Arterial Blood 78.1 L pO2 (Temp corrected) Arterial Blood 35.3 H HCO3 Arterial Blood 10.8 H Base Excess Arterial Blood 96.9 Oxygen Saturatio n Stanislaw Test ACCEPTAB Arterial Blood Left Radial Gas Puncture Site Arterial 0.6 Blood Carboxyhem oglobin Arterial Blood 0.3 Methemoglobin Blood Gas A-a O2 165.5 H Differential Oxyhemoglobin 96.0 Percent Blood Gas 33.1 Temperature Blood Gas 14.0 Respiration Rate Blood Gas Actual 14 Respiration Rate Blood Gas VENT - AC Modality FiO2 40.0 Blood Gas Tidal 400.0 Volume Blood Gas Low 5.0 PEEP Setting Blood Gas Saida BACON RN Critical Value Read Back Blood Gas Notified Whom Blood Gas 12/07/2018 6:11:24 Notified Time AM Bedside Glucose 125 Subjective 24 Hr Interval Summary Free Text/Dictation Patient remains stable and currently hypothermic. Moving feet when touched. No further episodes of cardiac arrest overnight. Exam/Review of Systems Exam Vitals Vital Signs Date Temp Pulse Resp B/P (MAP) Pulse Ox O2 O2 Flow FiO2 Time Delivery Rate 12/07/18 91.5 50 12 113/58 100 07:00 (76) 12/07/18 40 06:22 12/07/18 Mechanical 06:00 Ventilator 12/06/18 4.0 11:00 Intake and Output 12/06/18 12/06/18 12/07/18 1515:00 23:00 07:00 IntakeIntake Total 540.700 ml 489.495 ml BalanceBalance 540.700 ml 489.495 ml Exam General: Patient remains intubated and sedated. Neck: Supple, Respiratory: Diminished breath sounds. no wheezing or rhonchi appreciated Cardiovascular: S1, S2, Regular rhythm, bradycardia, no obvious murmurs Gastrointestinal: soft, non-tender to palpation, nondistended, bowel sounds heard. Ext: RUE fistula Neurological: hypothermic, moving feet when touched Results Results 24hrs Laboratory Tests Test 12/06/18 11:20 12/06/18 13:30 12/06/18 15:31 12/06/18 15:33 Iron Level 12 L Total Iron 246 Binding Capacity Percent Iron 5 L Saturation Blood Gas Blood arterial Specimen Source Arterial Blood 12/06/2018 2:18:55 Date Drawn PM Arterial Blood 7.514 H pH (Temp corrected) Arterial Blood 39.2 pCO2 (Temp correct) Arterial Blood 259.9 H pO2 (Temp corrected) Arterial Blood 30.9 H HCO3 Arterial Blood 7.4 H Base Excess Arterial Blood 99.4 H Oxygen Saturatio n Stanislaw Test ACCEPTAB Arterial Blood Left Radial Gas Puncture Site Arterial 0.4 Blood Carboxyhem oglobin Arterial Blood 0 Methemoglobin Blood Gas A-a O2 413.9 H Differential Oxyhemoglobin 99.0 Percent Blood Gas 37.0 Temperature Blood Gas 16.0 Respiration Rate Blood Gas Actual 16 Respiration Rate Blood Gas VENT - AC Modality FiO2 100.0 Blood Gas Tidal 450.0 Volume Blood Gas Low 5.0 PEEP Setting Blood Gas M.D. Notified Whom Blood Gas 12/06/2018 2:28:35 Notified Time PM White Blood 12.6 #H Count Red Blood Count 3.35 L Hemoglobin 10.1 L Hematocrit 32.7 L Mean Corpuscular 97.6 Volume Mean Corpuscular 30.1 Hemoglobin Mean Corpuscular 30.9 L Hemoglobin Irasema nt Red Cell 14.3 Distribution Width Platelet Count 141 Mean Platelet 10.4 Volume Immature 1.300 H Granulocytes % Neutrophils % 91.2 H Lymphocytes % 4.8 L Monocytes % 2.5 Eosinophils % 0.0 Basophils % 0.2 Nucleated Red 0.2 H Blood Cells % Immature 0.160 H Granulocytes # Neutrophils # 11.5 H Lymphocytes # 0.6 L Monocytes # 0.3 Eosinophils # 0.0 Basophils # 0.0 Nucleated Red 0.0 Blood Cells # Prothrombin Time 17.7 H Prothrombin Time 1.4 Ratio INR 1.45 International Normalized Ratio Activated 39.6 H Partial Thrombop last Time Fibrinogen 312.0 Sodium Level 138 Potassium Level 3.4 L Chloride Level 91 L Carbon Dioxide 33 H Level Anion Gap 14 H Blood Urea 21 H Nitrogen Creatinine 3.98 H Est Glomerular 12 L Filtrat Rate mL/min Glucose Level 304 H Lactic Acid 5.4 *H Level Calcium Level 10.2 Phosphorus Level 3.5 Magnesium Level 2.4 Amylase Level 32 Lipase 83 Creatine Kinase 102 Creatine Kinase 0.2 Index Creatinine < 0.22 Kinase MB (Mass) Troponin I < 0.012 Test 12/06/18 15:41 12/06/18 15:56 12/06/18 18:02 12/06/18 19:44 Blood Gas Blood arterial Specimen Source Arterial Blood 12/06/2018 5:20:02 Date Drawn PM Arterial Blood 7.479 H pH (Temp corrected) Arterial Blood 47.1 H pCO2 (Temp correct) Arterial Blood 57.5 L pO2 (Temp corrected) Arterial Blood 35.6 H HCO3 Arterial Blood 9.4 H Base Excess Arterial Blood 93.8 L Oxygen Saturatio n Stanislaw Test ACCEPTAB Arterial Blood Left Radial Gas Puncture Site Arterial 1.0 Blood Carboxyhem oglobin Arterial Blood 0 Methemoglobin Blood Gas A-a O2 177.3 H Differential Oxyhemoglobin 92.9 L Percent Blood Gas 33.0 Temperature Blood Gas 16.0 Respiration Rate Blood Gas Actual 17 Respiration Rate Blood Gas VENT - AC Modality FiO2 40.0 Blood Gas Tidal 450.0 Volume Blood Gas Low 5.0 PEEP Setting Blood Gas M.D. Notified Whom Blood Gas 12/06/2018 5:33:36 Notified Time PM Bedside Glucose 342 H 308 H Creatine Kinase 125 Creatine Kinase 0.2 Index Creatinine < 0.22 Kinase MB (Mass) Troponin I < 0.012 Test 12/06/18 19:46 12/06/18 20:38 12/06/18 21:28 12/06/18 22:35 Bedside Glucose 281 H 307 H 291 H 253 H Test 12/06/18 23:28 12/07/18 00:13 12/07/18 00:18 12/07/18 00:41 Bedside Glucose 234 H 190 Blood Gas Blood arterial Specimen Source Arterial Blood 12/07/2018 12:50:4 Date Drawn 4 AM Arterial Blood 7.632 *H pH (Temp corrected) Arterial Blood 30.2 L pCO2 (Temp correct) Arterial Blood 78.0 L pO2 (Temp corrected) Arterial Blood 32.1 H HCO3 Arterial Blood 9.5 H Base Excess Arterial Blood 97.3 Oxygen Saturatio n Stanislaw Test ACCEPTAB Arterial Blood Left Radial Gas Puncture Site Arterial 0.8 Blood Carboxyhem oglobin Arterial Blood 0.3 Methemoglobin Blood Gas A-a O2 176.0 H Differential Oxyhemoglobin 96.2 Percent Blood Gas 33.2 Temperature Blood Gas 16.0 Respiration Rate Blood Gas Actual 16 Respiration Rate Blood Gas VENT - AC Modality FiO2 40.0 Blood Gas Tidal 450.0 Volume Blood Gas Low 5.0 PEEP Setting Blood Gas JPACOL RN Critical Value Read Back Blood Gas MA Notified Whom Blood Gas 12/07/2018 1:05:41 Notified Time AM White Blood 6.7 # Count Red Blood Count 3.02 L Hemoglobin 9.5 L Hematocrit 28.5 L Mean Corpuscular 94.4 Volume Mean Corpuscular 31.5 Hemoglobin Mean Corpuscular 33.3 Hemoglobin Irasema nt Red Cell 14.1 Distribution Width Platelet Count 111 #L Mean Platelet 10.8 H Volume Immature 0.600 H Granulocytes % Neutrophils % 93.6 H Lymphocytes % 2.8 L Monocytes % 2.7 Eosinophils % 0.0 Basophils % 0.3 Nucleated Red 0.0 Blood Cells % Immature 0.040 H Granulocytes # Neutrophils # 6.3 Lymphocytes # 0.2 L Monocytes # 0.2 L Eosinophils # 0.0 Basophils # 0.0 Nucleated Red 0.0 Blood Cells # Sodium Level 137 Potassium Level 2.5 *L Chloride Level 90 L Carbon Dioxide 36 H Level Anion Gap 11 Blood Urea 25 H Nitrogen Creatinine 4.10 H Est Glomerular 12 L Filtrat Rate mL/min Glucose Level 197 # Lactic Acid 3.0 *H Level Calcium Level 9.0 Phosphorus Level 1.3 #L Magnesium Level 2.1 Troponin I 0.013 Test 12/07/18 01:38 12/07/18 02:33 12/07/18 04:29 12/07/18 05:50 Bedside Glucose 166 133 143 White Blood 6.8 Count Red Blood Count 3.39 L Hemoglobin 10.5 L Hematocrit 31.9 L Mean Corpuscular 94.1 Volume Mean Corpuscular 31.0 Hemoglobin Mean Corpuscular 32.9 Hemoglobin Irasema nt Red Cell 14.1 Distribution Width Platelet Count 107 L Mean Platelet 10.9 H Volume Immature 0.600 H Granulocytes % Neutrophils % 90.7 H Lymphocytes % 4.3 L Monocytes % 4.3 Eosinophils % 0.0 Basophils % 0.1 Nucleated Red 0.0 Blood Cells % Immature 0.040 H Granulocytes # Neutrophils # 6.2 Lymphocytes # 0.3 L Monocytes # 0.3 Eosinophils # 0.0 Basophils # 0.0 Nucleated Red 0.0 Blood Cells # Sodium Level 138 Potassium Level 2.9 *L Chloride Level 94 L Carbon Dioxide 36 H Level Anion Gap 8 Blood Urea 26 H Nitrogen Creatinine 4.35 H Est Glomerular 11 L Filtrat Rate mL/min Glucose Level 122 # Lactic Acid 1.9 Level Calcium Level 9.0 Phosphorus Level 1.3 L Magnesium Level 2.1 Total Bilirubin 0.7 Direct Bilirubin 0.00 Indirect 0.7 Bilirubin Aspartate Amino 81 H Transf (AST/SGOT ) Alanine 55 Aminotransferase (ALT/SGPT) Alkaline 79 Phosphatase Troponin I 0.016 Total Protein 6.1 # Albumin 3.0 #L Globulin 3.10 Albumin/Globulin 0.96 Ratio Free Thyroxine 2.92 Index Thyroxine (T4) 6.5 Triiodothyronine 44.9 H (T3) Uptake Test 12/07/18 06:13 12/07/18 06:28 Blood Gas Blood arterial Specimen Source Arterial Blood 12/07/2018 6:00:33 Date Drawn AM Arterial Blood 7.556 *H pH (Temp corrected) Arterial Blood 39.4 pCO2 (Temp correct) Arterial Blood 78.1 L pO2 (Temp corrected) Arterial Blood 35.3 H HCO3 Arterial Blood 10.8 H Base Excess Arterial Blood 96.9 Oxygen Saturatio n Stanislaw Test ACCEPTAB Arterial Blood Left Radial Gas Puncture Site Arterial 0.6 Blood Carboxyhem oglobin Arterial Blood 0.3 Methemoglobin Blood Gas A-a O2 165.5 H Differential Oxyhemoglobin 96.0 Percent Blood Gas 33.1 Temperature Blood Gas 14.0 Respiration Rate Blood Gas Actual 14 Respiration Rate Blood Gas VENT - AC Modality FiO2 40.0 Blood Gas Tidal 400.0 Volume Blood Gas Low 5.0 PEEP Setting Blood Gas JBerto PACOL, RN Critical Value Read Back Blood Gas Notified Whom Blood Gas 12/07/2018 6:11:24 Notified Time AM Bedside Glucose 125 Medications Medication Current Medications Ondansetron HCl (Zofran Inj) 4 mg Q6H PRN IV NAUSEA AND/OR VOMITING; Start 12/06/18 at 09:30 Albuterol (Proventil 0.083% (Neb)) 2.5 mg Q2H RESP THERAPY PRN NEB SHORTNESS OF BREATH; Start 12/06/18 at 09:30 Acetaminophen (Tylenol Tab) 650 mg Q6H PRN PO PAIN LEVEL 1-3 OR FEVER; Start 12/06/18 at 09:30 Docusate Sodium (Colace) 100 mg Q12H PRN PO CONSTIPATION; Start 12/06/18 at 09:30 Magnesium Hydroxide (Milk Of Mag) 30 ml DAILY PRN PO CONSTIPATION; Start 12/06/18 at 09:30 Aspirin (Aspirin) 81 mg DAILY PO ; Start 12/06/18 at 10:30 Brimonidine Tartrate (Alphagan 0.2%) 1 drop DAILY BOTH EYES ; Start 12/06/18 at 11:00 Calcium Acetate (Phoslo) 667 mg WITH MEALS PO ; Start 12/06/18 at 12:00 Docusate Sodium (Colace) 200 mg DAILY PO ; Start 12/06/18 at 10:30; Status Hold Lactulose (Enulose) 20 gm BID PO ; Start 12/06/18 at 21:00 Montelukast Sodium (Singulair) 10 mg HS PO ; Start 12/06/18 at 21:00; Status Hold Multivit/Ca Carb/ B Cmplx/FA/Prenat (Mariaelena-Rosas) 1 tab DAILY PO ; Start 12/06/18 at 10:30 Miscellaneous Information 1 ea NOTE XX ; Start 12/06/18 at 10:30 Norepinephrine 250 ml @ 1.875 mls/ hr TITRATE IV Last administered on 12/06/18at 16:03; Admin Dose 1.875 MLS/HR; Start 12/06/18 at 13:00 Fentanyl 100 ml @ 2.5 mls/hr TITRATE ONCE IV Last administered on 12/06/18at 18:27; Admin Dose 2.5 MLS/HR; Start 12/06/18 at 14:00; Stop 12/08/18 at 05:59 Atropine Sulfate (Atropine (Syringe)) 1 mg PRN PRN IV prn Last administered on 12/06/18 16:49; Admin Dose 1 MG; Start 12/06/18 at 16:00 Propofol 100 ml @ 3.045 mls/ hr Q12H IV Last administered on 12/07/18 02:24; Admin Dose 24.36 MLS/HR; Start 12/06/18 at 16:30 Diagnostic Test (Pha) (Accu-Chek) 1 ea Q1H XX Last administered on 12/07/18 06:30; Admin Dose 1 EA; Start 12/06/18 at 16:30 Insulin Human Regular 100 unit/ Sodium Chloride 100 ml @ 0 mls/hr PER PROTOCOL IV Last administered on 12/07/18 06:32; Admin Dose 5 MLS/HR; Start 12/06/18 at 16:30 Miscellaneous Information (* Miscellaneous Pharmacy Order) Treatment of Hypoglycemia: 1.BG 51... Per protocol XX ; Start 12/06/18 at 16:30 Dextrose (D50w Syringe) 25 ml Q15M PRN IV .DECREASED GLUCOSE; Start 12/06/18 at 16:30 Dextrose (D50w Syringe) 50 ml Q15M PRN IV .DECREASED GLUCOSE; Start 12/06/18 at 16:30 Midazolam HCl 50 ml @ 1 mls/hr TITRATE IV Last administered on 12/07/18 08:50; Admin Dose 1 MLS/HR; Start 12/06/18 at 16:30 Vancomycin HCl (Vanco Iv Per Pharmacy) VANCOMYCIN PER PHARMACY PER PROTOCOL XX ; Start 12/06/18 at 17:30 Cefepime HCl 50 ml @ 100 mls/hr Q24H IVPB Last administered on 12/06/18 22:37; Admin Dose 100 MLS/HR; Start 12/06/18 at 21:00 Levetiracetam 100 ml @ 400 mls/hr Q12 IVPB Last administered on 12/06/18 23:26; Admin Dose 400 MLS/HR; Start 12/06/18 at 21:00 Dopamine HCl/ Dextrose 250 ml @ 7.613 mls/ hr TITRATE IV Last administered on 12/06/18 20:51; Admin Dose 7.613 MLS/HR; Start 12/06/18 at 17:30 Acetaminophen (Tylenol Supp) 650 mg Q4H PRN CO TEMP > 37C; Start 12/06/18 at 18:30 Acetaminophen (Tylenol Liquid) 650 mg Q4H PRN PO TEMP > 37C; Start 12/06/18 at 18:30 Acetaminophen (Tylenol Supp) 500 mg Q6H CO ; Start 12/07/18 at 18:30 Acetaminophen (Tylenol Liquid) 500 mg Q6H PO ; Start 12/07/18 at 18:30 Meperidine HCl (Demerol) 12.5 mg Q4H PRN IV POST OPERATIVE SHIVERING; Start at 18:30 Meperidine HCl (Demerol) 25 mg Q4H PRN IV POST OPERATIVE SHIVERING; Start 12/06/18 at 18:30 Eye Lubricant (Akwa Oint) 1 applic Q6 BOTH EYES Last administered on 12/07/18at 05:08; Admin Dose 1 APPLIC; Start 12/07/18 at 00:00 Eye Lubricant (Artificial Tears Oph) 2 drop Q6 BOTH EYES Last administered on 12/07/18at 05:07; Admin Dose 2 DROP; Start 12/07/18 at 00:00 Magnesium Sulfate 50 ml @ 25 mls/hr PRN PRN IVPB IV PROTOCOL; Start 12/06/18 at 20:30 Potassium Chloride 50 ml @ 25 mls/hr PRN PRN IVPB IV PROTOCOL Last administered on 12/07/18at 08:33; Admin Dose 25 MLS/HR; Start 12/06/18 at 20:30 Heparin Sodium (Porcine) (Heparin (1000 Units/ml)) 4,000 unit AFTER DIALYSIS CATHETER ; Start 12/06/18 at 22:00 Albumin Human 100 ml @ 100 mls/hr WITH DIALYSIS PRN IV SBP <90 DURING DIALYSIS; Start 12/06/18 at 22:00 Sodium Chloride (NS) -To prime the dialy... DIRECTED FOR HD PRN IV HD; Start 12/06/18 at 22:00 Phenytoin 200 mg/ Sodium Chloride 54 ml @ 112 mls/hr AM IV ; Start 12/07/18 at 09:00 Phenytoin 200 mg/ Sodium Chloride 54 ml @ 112 mls/hr PC LUNCH IV ; Start 12/07/18 at 12:30 Phenytoin 300 mg/ Sodium Chloride 56 ml @ 112 mls/hr 2100 IV ; Start 12/07/18 at 21:00 Pantoprazole (Protonix Iv) 40 mg DAILY@06 IV Last administered on 12/07/18at 05:07; Admin Dose 40 MG; Start 12/07/18 at 06:00 BEAN BEST MD Dec 07, 2018 09:06
[2018-12-07] MEDS: BRIMONIDINE 0.2% 5 ML BTL BOTH EYES SCH (09:09)
[2018-12-07] MEDS: SOD CHLORIDE 0.9% IV SCH ×2 (09:17→12:43)
[2018-12-07] MEDS: PHENYTOIN IV SCH ×2 (09:17→12:43)
[2018-12-07] MEDS ORDERED: POTASSIUM PHOSPHATE 40 MEQ in SOD CHLORIDE 0.9% 250 ML IVPB ONE (09:30)
--- NOTE | 2018-12-07 09:32 | CONS ---
Assessment/Plan Assessment/Plan Hospital Course (Demo Recall) s/p cardiac arrest:First event was torsades in setting of prolonged QT caused by amiodarone. Subsequent PEA events are difficult to explain. Trops negative and no ischemic EKG changes. Had a bradycardic arrest as well which may have been metabolic or related to lidocaine. No further arrhythmias and seems to be stabilizing. EF is 35% and there is significant RV dysfunction and likely underlying severe pulm HTN which cannot be assessed accurately by echo. If she recovers she will need a cardiac cath for evaluation. Shock: cardiogenic +/- septic as she had fevers yesterday Torsades: due to amiodarone induced prolonged QTc. Now resolved Prolonged QT: due to amiodarone Cardiomyopathy: EF 35% RV dysfunction: doubt acute PE but maybe long standing pulm HTN NSVT: Unfortunately the tele bed in the ER that she was in did not record arrhythmias. Per ER MD she had 10-12 beats runs. Acute on chronic systolic CHF: EF 35%. Decompensated on exam HTN : BP initially recorded in the 120s, then >200. Now on dopamine ?Paroxysmal afib: Coumadin is on her med list but INR was normal on admission. With h/o stroke, presumably she had afib in the past. ESRD on HD DM CVA with left weakness -continue dopamine. Keep HR >50, BP >100 -hypothermia protocol -antibiotics -f/u blood cultures -hold all BP meds >40 min critical care time Consultation Date/Type/Reason Admit Date/Time Dec 06, 2018 at 12:45 Initial Consult Date 12/06/18 Type of Consult Cardiology Requesting Provider: BEAN BEST MD Date/Time of Note DATE: 12/07/18 TIME: 09:22 24 HR Interval Summary Free Text/Dictation Had multiple codes yesterday. Still unclear exactly what the underlying problem is. Still with prolonged QT and bradycardia on hypothermia protocol. On low dose dopamine. Trops negative. Exam/Review of Systems Vital Signs Vitals Vital Signs Date Temp Pulse Resp B/P (MAP) Pulse Ox O2 O2 Flow FiO2 Time Delivery Rate 12/07/18 49 08:00 12/07/18 91.5 12 113/58 100 07:00 (76) 12/07/18 40 06:22 12/07/18 Mechanical 06:00 Ventilator 4/6/19 4.0 11:00 Intake and Output 12/06/18 12/06/18 12/07/18 1515:00 23:00 07:00 IntakeIntake Total 540.700 ml 489.495 ml BalanceBalance 540.700 ml 489.495 ml Exam Constitutional: No alert ENMT: intubated Neck: No jvd (unabel to examine ) Respiratory: diminished breath sounds; No clear to auscultation Cardiovascular: edema (trace); No regular rate and rhythm (bradycardic 50s) Gastrointestinal: soft, non-tender; No distended Musculoskeletal: No nl extremities to inspection Neurological: No nl mental status, No nl speech Labs Result Diagram: 12/07/18 0550 12/07/18 0550 Results 24hrs Laboratory Tests Test 12/06/18 11:20 12/06/18 13:30 12/06/18 15:31 12/06/18 15:33 Iron Level 12 L Total Iron 246 Binding Capacity Percent Iron 5 L Saturation Blood Gas Blood arterial Specimen Source Arterial Blood 12/06/2018 2:18:55 Date Drawn PM Arterial Blood 7.514 H pH (Temp corrected) Arterial Blood 39.2 pCO2 (Temp correct) Arterial Blood 259.9 H pO2 (Temp corrected) Arterial Blood 30.9 H HCO3 Arterial Blood 7.4 H Base Excess Arterial Blood 99.4 H Oxygen Saturatio n Stanislaw Test ACCEPTAB Arterial Blood Left Radial Gas Puncture Site Arterial 0.4 Blood Carboxyhem oglobin Arterial Blood 0 Methemoglobin Blood Gas A-a O2 413.9 H Differential Oxyhemoglobin 99.0 Percent Blood Gas 37.0 Temperature Blood Gas 16.0 Respiration Rate Blood Gas Actual 16 Respiration Rate Blood Gas VENT - AC Modality FiO2 100.0 Blood Gas Tidal 450.0 Volume Blood Gas Low 5.0 PEEP Setting Blood Gas M.D. Notified Whom Blood Gas 12/06/2018 2:28:35 Notified Time PM White Blood 12.6 #H Count Red Blood Count 3.35 L Hemoglobin 10.1 L Hematocrit 32.7 L Mean Corpuscular 97.6 Volume Mean Corpuscular 30.1 Hemoglobin Mean Corpuscular 30.9 L Hemoglobin Irasema nt Red Cell 14.3 Distribution Width Platelet Count 141 Mean Platelet 10.4 Volume Immature 1.300 H Granulocytes % Neutrophils % 91.2 H Lymphocytes % 4.8 L Monocytes % 2.5 Eosinophils % 0.0 Basophils % 0.2 Nucleated Red 0.2 H Blood Cells % Immature 0.160 H Granulocytes # Neutrophils # 11.5 H Lymphocytes # 0.6 L Monocytes # 0.3 Eosinophils # 0.0 Basophils # 0.0 Nucleated Red 0.0 Blood Cells # Prothrombin Time 17.7 H Prothrombin Time 1.4 Ratio INR 1.45 International Normalized Ratio Activated 39.6 H Partial Thrombop last Time Fibrinogen 312.0 Sodium Level 138 Potassium Level 3.4 L Chloride Level 91 L Carbon Dioxide 33 H Level Anion Gap 14 H Blood Urea 21 H Nitrogen Creatinine 3.98 H Est Glomerular 12 L Filtrat Rate mL/min Glucose Level 304 H Lactic Acid 5.4 *H Level Calcium Level 10.2 Phosphorus Level 3.5 Magnesium Level 2.4 Amylase Level 32 Lipase 83 Creatine Kinase 102 Creatine Kinase 0.2 Index Creatinine < 0.22 Kinase MB (Mass) Troponin I < 0.012 Test 12/06/18 15:41 12/06/18 15:56 12/06/18 18:02 12/06/18 19:44 Blood Gas Blood arterial Specimen Source Arterial Blood 12/06/2018 5:20:02 Date Drawn PM Arterial Blood 7.479 H pH (Temp corrected) Arterial Blood 47.1 H pCO2 (Temp correct) Arterial Blood 57.5 L pO2 (Temp corrected) Arterial Blood 35.6 H HCO3 Arterial Blood 9.4 H Base Excess Arterial Blood 93.8 L Oxygen Saturatio n Stanislaw Test ACCEPTAB Arterial Blood Left Radial Gas Puncture Site Arterial 1.0 Blood Carboxyhem oglobin Arterial Blood 0 Methemoglobin Blood Gas A-a O2 177.3 H Differential Oxyhemoglobin 92.9 L Percent Blood Gas 33.0 Temperature Blood Gas 16.0 Respiration Rate Blood Gas Actual 17 Respiration Rate Blood Gas VENT - AC Modality FiO2 40.0 Blood Gas Tidal 450.0 Volume Blood Gas Low 5.0 PEEP Setting Blood Gas M.D. Notified Whom Blood Gas 12/06/2018 5:33:36 Notified Time PM Bedside Glucose 342 H 308 H Creatine Kinase 125 Creatine Kinase 0.2 Index Creatinine < 0.22 Kinase MB (Mass) Troponin I < 0.012 Test 12/06/18 19:46 12/06/18 20:38 12/06/18 21:28 12/06/18 22:35 Bedside Glucose 281 H 307 H 291 H 253 H Test 12/06/18 23:28 12/07/18 00:13 12/07/18 00:18 12/07/18 00:41 Bedside Glucose 234 H 190 Blood Gas Blood arterial Specimen Source Arterial Blood 12/07/2018 12:50:4 Date Drawn 4 AM Arterial Blood 7.632 *H pH (Temp corrected) Arterial Blood 30.2 L pCO2 (Temp correct) Arterial Blood 78.0 L pO2 (Temp corrected) Arterial Blood 32.1 H HCO3 Arterial Blood 9.5 H Base Excess Arterial Blood 97.3 Oxygen Saturatio n Stanislaw Test ACCEPTAB Arterial Blood Left Radial Gas Puncture Site Arterial 0.8 Blood Carboxyhem oglobin Arterial Blood 0.3 Methemoglobin Blood Gas A-a O2 176.0 H Differential Oxyhemoglobin 96.2 Percent Blood Gas 33.2 Temperature Blood Gas 16.0 Respiration Rate Blood Gas Actual 16 Respiration Rate Blood Gas VENT - AC Modality FiO2 40.0 Blood Gas Tidal 450.0 Volume Blood Gas Low 5.0 PEEP Setting Blood Gas JPACOL RN Critical Value Read Back Blood Gas MA Notified Whom Blood Gas 12/07/2018 1:05:41 Notified Time AM White Blood 6.7 # Count Red Blood Count 3.02 L Hemoglobin 9.5 L Hematocrit 28.5 L Mean Corpuscular 94.4 Volume Mean Corpuscular 31.5 Hemoglobin Mean Corpuscular 33.3 Hemoglobin Irasema nt Red Cell 14.1 Distribution Width Platelet Count 111 #L Mean Platelet 10.8 H Volume Immature 0.600 H Granulocytes % Neutrophils % 93.6 H Lymphocytes % 2.8 L Monocytes % 2.7 Eosinophils % 0.0 Basophils % 0.3 Nucleated Red 0.0 Blood Cells % Immature 0.040 H Granulocytes # Neutrophils # 6.3 Lymphocytes # 0.2 L Monocytes # 0.2 L Eosinophils # 0.0 Basophils # 0.0 Nucleated Red 0.0 Blood Cells # Sodium Level 137 Potassium Level 2.5 *L Chloride Level 90 L Carbon Dioxide 36 H Level Anion Gap 11 Blood Urea 25 H Nitrogen Creatinine 4.10 H Est Glomerular 12 L Filtrat Rate mL/min Glucose Level 197 # Lactic Acid 3.0 *H Level Calcium Level 9.0 Phosphorus Level 1.3 #L Magnesium Level 2.1 Troponin I 0.013 Test 12/07/18 01:38 12/07/18 02:33 12/07/18 04:29 4/7/19 05:50 Bedside Glucose 166 133 143 White Blood 6.8 Count Red Blood Count 3.39 L Hemoglobin 10.5 L Hematocrit 31.9 L Mean Corpuscular 94.1 Volume Mean Corpuscular 31.0 Hemoglobin Mean Corpuscular 32.9 Hemoglobin Irasema nt Red Cell 14.1 Distribution Width Platelet Count 107 L Mean Platelet 10.9 H Volume Immature 0.600 H Granulocytes % Neutrophils % 90.7 H Lymphocytes % 4.3 L Monocytes % 4.3 Eosinophils % 0.0 Basophils % 0.1 Nucleated Red 0.0 Blood Cells % Immature 0.040 H Granulocytes # Neutrophils # 6.2 Lymphocytes # 0.3 L Monocytes # 0.3 Eosinophils # 0.0 Basophils # 0.0 Nucleated Red 0.0 Blood Cells # Sodium Level 138 Potassium Level 2.9 *L Chloride Level 94 L Carbon Dioxide 36 H Level Anion Gap 8 Blood Urea 26 H Nitrogen Creatinine 4.35 H Est Glomerular 11 L Filtrat Rate mL/min Glucose Level 122 # Lactic Acid 1.9 Level Calcium Level 9.0 Phosphorus Level 1.3 L Magnesium Level 2.1 Total Bilirubin 0.7 Direct Bilirubin 0.00 Indirect 0.7 Bilirubin Aspartate Amino 81 H Transf (AST/SGOT ) Alanine 55 Aminotransferase (ALT/SGPT) Alkaline 79 Phosphatase Troponin I 0.016 Total Protein 6.1 # Albumin 3.0 #L Globulin 3.10 Albumin/Globulin 0.96 Ratio Free Thyroxine 2.92 Index Thyroxine (T4) 6.5 Triiodothyronine 44.9 H (T3) Uptake Test 12/07/18 06:13 12/07/18 06:28 12/07/18 08:37 Blood Gas Blood arterial Specimen Source Arterial Blood 12/07/2018 6:00:33 Date Drawn AM Arterial Blood 7.556 *H pH (Temp corrected) Arterial Blood 39.4 pCO2 (Temp correct) Arterial Blood 78.1 L pO2 (Temp corrected) Arterial Blood 35.3 H HCO3 Arterial Blood 10.8 H Base Excess Arterial Blood 96.9 Oxygen Saturatio n Stanislaw Test ACCEPTAB Arterial Blood Left Radial Gas Puncture Site Arterial 0.6 Blood Carboxyhem oglobin Arterial Blood 0.3 Methemoglobin Blood Gas A-a O2 165.5 H Differential Oxyhemoglobin 96.0 Percent Blood Gas 33.1 Temperature Blood Gas 14.0 Respiration Rate Blood Gas Actual 14 Respiration Rate Blood Gas VENT - AC Modality FiO2 40.0 Blood Gas Tidal 400.0 Volume Blood Gas Low 5.0 PEEP Setting Blood Gas Saida BACON RN Critical Value Read Back Blood Gas Notified Whom Blood Gas 12/07/2018 6:11:24 Notified Time AM Bedside Glucose 125 103 Medications Medications Current Medications Ondansetron HCl (Zofran Inj) 4 mg Q6H PRN IV NAUSEA AND/OR VOMITING; Start 12/06/18 at 09:30 Albuterol (Proventil 0.083% (Neb)) 2.5 mg Q2H RESP THERAPY PRN NEB SHORTNESS OF BREATH; Start 12/06/18 at 09:30 Acetaminophen (Tylenol Tab) 650 mg Q6H PRN PO PAIN LEVEL 1-3 OR FEVER; Start 12/06/18 at 09:30 Docusate Sodium (Colace) 100 mg Q12H PRN PO CONSTIPATION; Start 12/06/18 at 09:30 Magnesium Hydroxide (Milk Of Mag) 30 ml DAILY PRN PO CONSTIPATION; Start 12/06/18 at 09:30 Aspirin (Aspirin) 81 mg DAILY PO ; Start 12/06/18 at 10:30 Brimonidine Tartrate (Alphagan 0.2%) 1 drop DAILY BOTH EYES Last administered on 12/07/18at 09:09; Admin Dose 1 DROP; Start 12/06/18 at 11:00 Calcium Acetate (Phoslo) 667 mg WITH MEALS PO ; Start 12/06/18 at 12:00 Docusate Sodium (Colace) 200 mg DAILY PO ; Start 12/06/18 at 10:30; Status Hold Lactulose (Enulose) 20 gm BID PO ; Start 12/06/18 at 21:00 Montelukast Sodium (Singulair) 10 mg HS PO ; Start 12/06/18 at 21:00; Status Hold Multivit/Ca Carb/ B Cmplx/FA/Prenat (Mariaelena-Rosas) 1 tab DAILY PO ; Start 12/06/18 at 10:30 Miscellaneous Information 1 ea NOTE XX ; Start 12/06/18 at 10:30 Norepinephrine 250 ml @ 1.875 mls/ hr TITRATE IV Last administered on 12/06/18at 16:03; Admin Dose 1.875 MLS/HR; Start 12/06/18 at 13:00 Fentanyl 100 ml @ 2.5 mls/hr TITRATE ONCE IV Last administered on 12/06/18 18:27; Admin Dose 2.5 MLS/HR; Start 12/06/18 at 14:00; Stop 12/08/18 at 05:59 Atropine Sulfate (Atropine (Syringe)) 1 mg PRN PRN IV prn Last administered on 12/06/18 16:49; Admin Dose 1 MG; Start 12/06/18 at 16:00 Propofol 100 ml @ 3.045 mls/ hr Q12H IV Last administered on 12/07/18 02:24; Admin Dose 24.36 MLS/HR; Start 12/06/18 at 16:30 Diagnostic Test (Pha) (Accu-Chek) 1 ea Q1H XX Last administered on 12/07/18 06:30; Admin Dose 1 EA; Start 12/06/18 at 16:30 Insulin Human Regular 100 unit/ Sodium Chloride 100 ml @ 0 mls/hr PER PROTOCOL IV Last administered on 12/07/18 06:32; Admin Dose 5 MLS/HR; Start 12/06/18 at 16:30 Miscellaneous Information (* Miscellaneous Pharmacy Order) Treatment of Hypoglycemia: 1.BG 51... Per protocol XX ; Start 12/06/18 at 16:30 Dextrose (D50w Syringe) 25 ml Q15M PRN IV .DECREASED GLUCOSE; Start 12/06/18 at 16:30 Dextrose (D50w Syringe) 50 ml Q15M PRN IV .DECREASED GLUCOSE; Start 12/06/18 at 16:30 Midazolam HCl 50 ml @ 1 mls/hr TITRATE IV Last administered on 12/07/18at 08:50; Admin Dose 1 MLS/HR; Start 12/06/18 at 16:30 Vancomycin HCl (Vanco Iv Per Pharmacy) VANCOMYCIN PER PHARMACY PER PROTOCOL XX ; Start 12/06/18 at 17:30 Cefepime HCl 50 ml @ 100 mls/hr Q24H IVPB Last administered on 12/06/18 22:37; Admin Dose 100 MLS/HR; Start 12/06/18 at 21:00 Levetiracetam 100 ml @ 400 mls/hr Q12 IVPB Last administered on 12/06/18 23:26; Admin Dose 400 MLS/HR; Start 12/06/18 at 21:00 Dopamine HCl/ Dextrose 250 ml @ 7.613 mls/ hr TITRATE IV Last administered on 12/06/18at 20:51; Admin Dose 7.613 MLS/HR; Start 12/06/18 at 17:30 Acetaminophen (Tylenol Supp) 650 mg Q4H PRN MS TEMP > 37C; Start 12/06/18 at 18:30 Acetaminophen (Tylenol Liquid) 650 mg Q4H PRN PO TEMP > 37C; Start 12/06/18 at 18:30 Acetaminophen (Tylenol Supp) 500 mg Q6H MS ; Start 12/07/18 at 18:30 Acetaminophen (Tylenol Liquid) 500 mg Q6H PO ; Start 12/07/18 at 18:30 Meperidine HCl (Demerol) 12.5 mg Q4H PRN IV POST OPERATIVE SHIVERING; Start 12/06/18 at 18:30 Meperidine HCl (Demerol) 25 mg Q4H PRN IV POST OPERATIVE SHIVERING; Start 12/06/18 at 18:30 Eye Lubricant (Akwa Oint) 1 applic Q6 BOTH EYES Last administered on 12/07/18at 05:08; Admin Dose 1 APPLIC; Start 12/07/18 at 00:00 Eye Lubricant (Artificial Tears Oph) 2 drop Q6 BOTH EYES Last administered on 12/07/18at 05:07; Admin Dose 2 DROP; Start 12/07/18 at 00:00 Magnesium Sulfate 50 ml @ 25 mls/hr PRN PRN IVPB IV PROTOCOL; Start 12/06/18 at 20:30 Potassium Chloride 50 ml @ 25 mls/hr PRN PRN IVPB IV PROTOCOL Last administered on 12/07/18at 08:33; Admin Dose 25 MLS/HR; Start 12/06/18 at 20:30 Heparin Sodium (Porcine) (Heparin (1000 Units/ml)) 4,000 unit AFTER DIALYSIS CATHETER ; Start 12/06/18 at 22:00 Albumin Human 100 ml @ 100 mls/hr WITH DIALYSIS PRN IV SBP <90 DURING DIALYSIS; Start 12/06/18 at 22:00 Sodium Chloride (NS) -To prime the dialy... DIRECTED FOR HD PRN IV HD; Start 12/06/18 at 22:00 Phenytoin 200 mg/ Sodium Chloride 54 ml @ 112 mls/hr AM IV Last administered on 12/07/18at 09:17; Admin Dose 112 MLS/HR; Start 12/07/18 at 09:00 Phenytoin 200 mg/ Sodium Chloride 54 ml @ 112 mls/hr PC LUNCH IV ; Start at 12:30 Phenytoin 300 mg/ Sodium Chloride 56 ml @ 112 mls/hr 2100 IV ; Start 12/07/18 at 21:00 Pantoprazole (Protonix Iv) 40 mg DAILY@06 IV Last administered on 12/07/18at 05:07; Admin Dose 40 MG; Start 12/07/18 at 06:00 Potassium Phosphate 40 meq/ Sodium Chloride 259.0909 ml @ 64.773 m... ONCE ONCE IVPB ; Start 12/07/18 at 09:30; Stop 12/07/18 at 13:29 JJ BRANCH Dec 07, 2018 09:32
[2018-12-07] MEDS: LEVETIRACETAM 500 MG (PMX) 100 ML IVPB SCH ×2 (09:50→20:07)
--- NOTE | 2018-12-07 10:27 | CONS ---
Consult Date/Type/Reason Admit Date/Time Dec 06, 2018 at 12:45 Initial Consult Date 12/06/18 Type of Consultation: Pulm/CCM Requesting Provider: BEAN BEST MD Date/Time of Note DATE: 12/07/18 TIME: 10:17 Subjective Improvements overnight. Off pressors. On dopamine 1 mcg for relative bradycardia with persistent prolonged QTc. Sedated on mechanical ventilation. Objective Vitals Vital Signs Date Temp Pulse Resp B/P (MAP) Pulse Ox O2 O2 Flow FiO2 Time Delivery Rate 12/07/18 49 08:00 12/07/18 91.5 12 113/58 100 07:00 (76) 12/07/18 40 06:22 12/07/18 Mechanical 06:00 Ventilator 12/06/18 4.0 11:00 Intake and Output 12/06/18 12/06/18 12/07/18 1515:00 23:00 07:00 IntakeIntake Total 540.700 ml 489.495 ml BalanceBalance 540.700 ml 489.495 ml Exam HEENT: Neck supple; no JVD; no LAD; + ET tube CVS: Distant juvencio, S1 and S2 CHEST: Clear anteriorly ABD: Obese, soft, NT, + BS EXT: No c/c/e NEURO: sedated on mechanical ventilation. Results/Medications Result Diagram: 12/07/18 0550 12/07/18 0550 Results 24 hrs Laboratory Tests Test 12/06/18 11:20 12/06/18 13:30 12/06/18 15:31 12/06/18 15:33 Iron Level 12 L Total Iron 246 Binding Capacity Percent Iron 5 L Saturation Blood Gas Blood arterial Specimen Source Arterial Blood 12/06/2018 2:18:55 Date Drawn PM Arterial Blood 7.514 H pH (Temp corrected) Arterial Blood 39.2 pCO2 (Temp correct) Arterial Blood 259.9 H pO2 (Temp corrected) Arterial Blood 30.9 H HCO3 Arterial Blood 7.4 H Base Excess Arterial Blood 99.4 H Oxygen Saturatio n Stanislaw Test ACCEPTAB Arterial Blood Left Radial Gas Puncture Site Arterial 0.4 Blood Carboxyhem oglobin Arterial Blood 0 Methemoglobin Blood Gas A-a O2 413.9 H Differential Oxyhemoglobin 99.0 Percent Blood Gas 37.0 Temperature Blood Gas 16.0 Respiration Rate Blood Gas Actual 16 Respiration Rate Blood Gas VENT - AC Modality FiO2 100.0 Blood Gas Tidal 450.0 Volume Blood Gas Low 5.0 PEEP Setting Blood Gas M.D. Notified Whom Blood Gas 12/06/2018 2:28:35 Notified Time PM White Blood 12.6 #H Count Red Blood Count 3.35 L Hemoglobin 10.1 L Hematocrit 32.7 L Mean Corpuscular 97.6 Volume Mean Corpuscular 30.1 Hemoglobin Mean Corpuscular 30.9 L Hemoglobin Irasema nt Red Cell 14.3 Distribution Width Platelet Count 141 Mean Platelet 10.4 Volume Immature 1.300 H Granulocytes % Neutrophils % 91.2 H Lymphocytes % 4.8 L Monocytes % 2.5 Eosinophils % 0.0 Basophils % 0.2 Nucleated Red 0.2 H Blood Cells % Immature 0.160 H Granulocytes # Neutrophils # 11.5 H Lymphocytes # 0.6 L Monocytes # 0.3 Eosinophils # 0.0 Basophils # 0.0 Nucleated Red 0.0 Blood Cells # Prothrombin Time 17.7 H Prothrombin Time 1.4 Ratio INR 1.45 International Normalized Ratio Activated 39.6 H Partial Thrombop last Time Fibrinogen 312.0 Sodium Level 138 Potassium Level 3.4 L Chloride Level 91 L Carbon Dioxide 33 H Level Anion Gap 14 H Blood Urea 21 H Nitrogen Creatinine 3.98 H Est Glomerular 12 L Filtrat Rate mL/min Glucose Level 304 H Lactic Acid 5.4 *H Level Calcium Level 10.2 Phosphorus Level 3.5 Magnesium Level 2.4 Amylase Level 32 Lipase 83 Creatine Kinase 102 Creatine Kinase 0.2 Index Creatinine < 0.22 Kinase MB (Mass) Troponin I < 0.012 Test 12/06/18 15:41 12/06/18 15:56 12/06/18 18:02 12/06/18 19:44 Blood Gas Blood arterial Specimen Source Arterial Blood 12/06/2018 5:20:02 Date Drawn PM Arterial Blood 7.479 H pH (Temp corrected) Arterial Blood 47.1 H pCO2 (Temp correct) Arterial Blood 57.5 L pO2 (Temp corrected) Arterial Blood 35.6 H HCO3 Arterial Blood 9.4 H Base Excess Arterial Blood 93.8 L Oxygen Saturatio n Stanislaw Test ACCEPTAB Arterial Blood Left Radial Gas Puncture Site Arterial 1.0 Blood Carboxyhem oglobin Arterial Blood 0 Methemoglobin Blood Gas A-a O2 177.3 H Differential Oxyhemoglobin 92.9 L Percent Blood Gas 33.0 Temperature Blood Gas 16.0 Respiration Rate Blood Gas Actual 17 Respiration Rate Blood Gas VENT - AC Modality FiO2 40.0 Blood Gas Tidal 450.0 Volume Blood Gas Low 5.0 PEEP Setting Blood Gas Alyce Notified Whom Blood Gas 12/06/2018 5:33:36 Notified Time PM Bedside Glucose 342 H 308 H Creatine Kinase 125 Creatine Kinase 0.2 Index Creatinine < 0.22 Kinase MB (Mass) Troponin I < 0.012 Test 12/06/18 19:46 12/06/18 20:38 12/06/18 21:28 12/06/18 22:35 Bedside Glucose 281 H 307 H 291 H 253 H Test 12/06/18 23:28 12/07/18 00:13 12/07/18 00:18 12/07/18 00:41 Bedside Glucose 234 H 190 Blood Gas Blood arterial Specimen Source Arterial Blood 12/07/2018 12:50:4 Date Drawn 4 AM Arterial Blood 7.632 *H pH (Temp corrected) Arterial Blood 30.2 L pCO2 (Temp correct) Arterial Blood 78.0 L pO2 (Temp corrected) Arterial Blood 32.1 H HCO3 Arterial Blood 9.5 H Base Excess Arterial Blood 97.3 Oxygen Saturatio n Stanislaw Test ACCEPTAB Arterial Blood Left Radial Gas Puncture Site Arterial 0.8 Blood Carboxyhem oglobin Arterial Blood 0.3 Methemoglobin Blood Gas A-a O2 176.0 H Differential Oxyhemoglobin 96.2 Percent Blood Gas 33.2 Temperature Blood Gas 16.0 Respiration Rate Blood Gas Actual 16 Respiration Rate Blood Gas VENT - AC Modality FiO2 40.0 Blood Gas Tidal 450.0 Volume Blood Gas Low 5.0 PEEP Setting Blood Gas JPACOL RN Critical Value Read Back Blood Gas ARUNA Notified Whom Blood Gas 12/07/2018 1:05:41 Notified Time AM White Blood 6.7 # Count Red Blood Count 3.02 L Hemoglobin 9.5 L Hematocrit 28.5 L Mean Corpuscular 94.4 Volume Mean Corpuscular 31.5 Hemoglobin Mean Corpuscular 33.3 Hemoglobin Irasema nt Red Cell 14.1 Distribution Width Platelet Count 111 #L Mean Platelet 10.8 H Volume Immature 0.600 H Granulocytes % Neutrophils % 93.6 H Lymphocytes % 2.8 L Monocytes % 2.7 Eosinophils % 0.0 Basophils % 0.3 Nucleated Red 0.0 Blood Cells % Immature 0.040 H Granulocytes # Neutrophils # 6.3 Lymphocytes # 0.2 L Monocytes # 0.2 L Eosinophils # 0.0 Basophils # 0.0 Nucleated Red 0.0 Blood Cells # Sodium Level 137 Potassium Level 2.5 *L Chloride Level 90 L Carbon Dioxide 36 H Level Anion Gap 11 Blood Urea 25 H Nitrogen Creatinine 4.10 H Est Glomerular 12 L Filtrat Rate mL/min Glucose Level 197 # Lactic Acid 3.0 *H Level Calcium Level 9.0 Phosphorus Level 1.3 #L Magnesium Level 2.1 Troponin I 0.013 Test 12/07/18 01:38 12/07/18 02:33 12/07/18 04:29 12/07/18 05:50 Bedside Glucose 166 133 143 White Blood 6.8 Count Red Blood Count 3.39 L Hemoglobin 10.5 L Hematocrit 31.9 L Mean Corpuscular 94.1 Volume Mean Corpuscular 31.0 Hemoglobin Mean Corpuscular 32.9 Hemoglobin Irasema nt Red Cell 14.1 Distribution Width Platelet Count 107 L Mean Platelet 10.9 H Volume Immature 0.600 H Granulocytes % Neutrophils % 90.7 H Lymphocytes % 4.3 L Monocytes % 4.3 Eosinophils % 0.0 Basophils % 0.1 Nucleated Red 0.0 Blood Cells % Immature 0.040 H Granulocytes # Neutrophils # 6.2 Lymphocytes # 0.3 L Monocytes # 0.3 Eosinophils # 0.0 Basophils # 0.0 Nucleated Red 0.0 Blood Cells # Sodium Level 138 Potassium Level 2.9 *L Chloride Level 94 L Carbon Dioxide 36 H Level Anion Gap 8 Blood Urea 26 H Nitrogen Creatinine 4.35 H Est Glomerular 11 L Filtrat Rate mL/min Glucose Level 122 # Lactic Acid 1.9 Level Calcium Level 9.0 Phosphorus Level 1.3 L Magnesium Level 2.1 Total Bilirubin 0.7 Direct Bilirubin 0.00 Indirect 0.7 Bilirubin Aspartate Amino 81 H Transf (AST/SGOT ) Alanine 55 Aminotransferase (ALT/SGPT) Alkaline 79 Phosphatase Troponin I 0.016 Total Protein 6.1 # Albumin 3.0 #L Globulin 3.10 Albumin/Globulin 0.96 Ratio Free Thyroxine 2.92 Index Thyroxine (T4) 6.5 Triiodothyronine 44.9 H (T3) Uptake Test 12/07/18 06:13 12/07/18 06:28 12/07/18 08:37 Blood Gas Blood arterial Specimen Source Arterial Blood 12/07/2018 6:00:33 Date Drawn AM Arterial Blood 7.556 *H pH (Temp corrected) Arterial Blood 39.4 pCO2 (Temp correct) Arterial Blood 78.1 L pO2 (Temp corrected) Arterial Blood 35.3 H HCO3 Arterial Blood 10.8 H Base Excess Arterial Blood 96.9 Oxygen Saturatio n Stanislaw Test ACCEPTAB Arterial Blood Left Radial Gas Puncture Site Arterial 0.6 Blood Carboxyhem oglobin Arterial Blood 0.3 Methemoglobin Blood Gas A-a O2 165.5 H Differential Oxyhemoglobin 96.0 Percent Blood Gas 33.1 Temperature Blood Gas 14.0 Respiration Rate Blood Gas Actual 14 Respiration Rate Blood Gas VENT - AC Modality FiO2 40.0 Blood Gas Tidal 400.0 Volume Blood Gas Low 5.0 PEEP Setting Blood Gas Saida BACON RN Critical Value Read Back Blood Gas Notified Whom Blood Gas 12/07/2018 6:11:24 Notified Time AM Bedside Glucose 125 103 Home Meds Reported Medications Insulin Lispro (Humalog) 100 U/Ml Vial, SQ SSI TID AND HS PRN 09/12/11 Multivit/Ca Carb/B Cmplx/Fa* (Mariaelena-Rosas*) 1 Tab Tab, 1 TAB PO DAILY 09/12/11 [Prostat 64] No Conflict Check, 30 ML PO TID 09/12/11 Esomeprazole Mag Trihydrate (Nexium) 40 Mg Capsule.dr, 40 MG PO DAILY 09/12/11 Metoprolol (Lopressor) 100 Mg Tablet, 100 MG PO BID 09/12/11 Benazepril Hcl* (Lotensin*) 40 Mg Tablet, 40 MG PO DAILY 09/12/11 [Lactulose] No Conflict Check, 30 ML PO DAILY PRN 09/12/11 Lactulose (Lactulose) 10 G/15 Ml Solution, 20 G PO BID 09/12/11 Glipizide* (Glucotrol XL*) 2.5 Mg Tabsr, 2.5 MG PO DAILY 09/12/11 Phenytoin* Sodium Extended (Dilantin*) 100 Mg Capsule, 300 MG PO HS 09/12/11 Phenytoin* Sodium Extended (Dilantin*) 100 Mg Capsule, 200 MG PO DAILY @0900 09/12/11 Phenytoin* Sodium Extended (Dilantin*) 100 Mg Capsule, 200 MG PO DAILY @1300 09/12/11 Phenytoin* Sodium Extended (Dilantin*) 100 Mg Capsule, 200 MG PO DAILY 09/12/11 Docusate Sodium* (Colace*) 100 Mg Capsule, 200 MG PO DAILY 09/12/11 Warfarin Sodium* (Coumadin*) 7.5 Mg Tablet, 7.5 MG PO Q OTHER DAY 06/01/11 Montelukast Sodium* (Singulair*) 10 Mg Tablet, 10 MG PO HS 06/01/11 Folic Acid/Vitamin B Comp W-C* (Nephro-Rosas Tablet*) 0.8 Mg Tablet, 0.8 MG PO DAILY 06/01/11 Aspirin (Aspirin) 81 Mg Tablet, 81 MG PO DAILY 06/01/11 Levetiracetam* (Keppra*) 500 Mg Tablet, 500 MG PO BID 06/01/11 Clonidine Hcl* (Clonidine Hcl*) 0.2 Mg Tablet 01/09/11 Metoclopramide Hcl* (Metoclopramide Hcl*) 10 Mg Tablet 01/09/11 Brimonidine Tartrate* (Brimonidine Tartrate*) 15 Ml Drops 01/09/11 Prednisolone Acetate (Pred Forte) 5 Ml Drops.susp 01/09/11 Nifedipine (Nifedical XL*) 30 Mg/Bottle Tab.osm.24 01/09/11 Calcium Acetate* (Phoslo*) 667 Mg Tablet 10/24/09 Medications Current Medications Ondansetron HCl (Zofran Inj) 4 mg Q6H PRN IV NAUSEA AND/OR VOMITING; Start 12/06/18 at 09:30 Albuterol (Proventil 0.083% (Neb)) 2.5 mg Q2H RESP THERAPY PRN NEB SHORTNESS OF BREATH; Start 12/06/18 at 09:30 Acetaminophen (Tylenol Tab) 650 mg Q6H PRN PO PAIN LEVEL 1-3 OR FEVER; Start at 09:30 Docusate Sodium (Colace) 100 mg Q12H PRN PO CONSTIPATION; Start 12/06/18 at 09:30 Magnesium Hydroxide (Milk Of Mag) 30 ml DAILY PRN PO CONSTIPATION; Start 12/06/18 at 09:30 Aspirin (Aspirin) 81 mg DAILY PO ; Start 12/06/18 at 10:30 Brimonidine Tartrate (Alphagan 0.2%) 1 drop DAILY BOTH EYES Last administered on 12/07/18 09:09; Admin Dose 1 DROP; Start 12/06/18 at 11:00 Calcium Acetate (Phoslo) 667 mg WITH MEALS PO ; Start 12/06/18 at 12:00 Docusate Sodium (Colace) 200 mg DAILY PO ; Start 12/06/18 at 10:30; Status Hold Lactulose (Enulose) 20 gm BID PO ; Start 12/06/18 at 21:00 Montelukast Sodium (Singulair) 10 mg HS PO ; Start 12/06/18 at 21:00; Status Hold Multivit/Ca Carb/ B Cmplx/FA/Prenat (Mariaelena-Rosas) 1 tab DAILY PO ; Start 12/06/18 at 10:30 Miscellaneous Information 1 ea NOTE XX ; Start 12/06/18 at 10:30 Norepinephrine 250 ml @ 1.875 mls/ hr TITRATE IV Last administered on 12/06/18at 16:03; Admin Dose 1.875 MLS/HR; Start 12/06/18 at 13:00 Fentanyl 100 ml @ 2.5 mls/hr TITRATE ONCE IV Last administered on 12/06/18at 18:27; Admin Dose 2.5 MLS/HR; Start 12/06/18 at 14:00; Stop 12/08/18 at 05:59 Atropine Sulfate (Atropine (Syringe)) 1 mg PRN PRN IV prn Last administered on 12/06/18at 16:49; Admin Dose 1 MG; Start 12/06/18 at 16:00 Propofol 100 ml @ 3.045 mls/ hr Q12H IV Last administered on 12/07/18at 02:24; Admin Dose 24.36 MLS/HR; Start 12/06/18 at 16:30 Diagnostic Test (Pha) (Accu-Chek) 1 ea Q1H XX Last administered on 12/07/18 06:30; Admin Dose 1 EA; Start 12/06/18 at 16:30 Insulin Human Regular 100 unit/ Sodium Chloride 100 ml @ 0 mls/hr PER PROTOCOL IV Last administered on 12/07/18at 06:32; Admin Dose 5 MLS/HR; Start 12/06/18 at 16:30 Miscellaneous Information (* Miscellaneous Pharmacy Order) Treatment of Hypoglycemia: 1.BG 51... Per protocol XX ; Start 12/06/18 at 16:30 Dextrose (D50w Syringe) 25 ml Q15M PRN IV .DECREASED GLUCOSE; Start 12/06/18 at 16:30 Dextrose (D50w Syringe) 50 ml Q15M PRN IV .DECREASED GLUCOSE; Start 12/06/18 at 16:30 Midazolam HCl 50 ml @ 1 mls/hr TITRATE IV Last administered on 12/07/18at 08:50; Admin Dose 1 MLS/HR; Start 12/06/18 at 16:30 Vancomycin HCl (Vanco Iv Per Pharmacy) VANCOMYCIN PER PHARMACY PER PROTOCOL XX ; Start 12/06/18 at 17:30 Cefepime HCl 50 ml @ 100 mls/hr Q24H IVPB Last administered on 12/06/18at 22:37; Admin Dose 100 MLS/HR; Start 12/06/18 at 21:00 Levetiracetam 100 ml @ 400 mls/hr Q12 IVPB Last administered on 12/07/18at 09:50; Admin Dose 400 MLS/HR; Start 12/06/18 at 21:00 Dopamine HCl/ Dextrose 250 ml @ 7.613 mls/ hr TITRATE IV Last administered on 12/06/18at 20:51; Admin Dose 7.613 MLS/HR; Start 12/06/18 at 17:30 Acetaminophen (Tylenol Supp) 650 mg Q4H PRN AR TEMP > 37C; Start 12/06/18 at 18:30 Acetaminophen (Tylenol Liquid) 650 mg Q4H PRN PO TEMP > 37C; Start 12/06/18 at 18:30 Acetaminophen (Tylenol Supp) 500 mg Q6H AR ; Start 12/07/18 at 18:30 Acetaminophen (Tylenol Liquid) 500 mg Q6H PO ; Start 12/07/18 at 18:30 Meperidine HCl (Demerol) 12.5 mg Q4H PRN IV POST OPERATIVE SHIVERING; Start 12/06/18 at 18:30 Meperidine HCl (Demerol) 25 mg Q4H PRN IV POST OPERATIVE SHIVERING; Start 12/06/18 at 18:30 Eye Lubricant (Akwa Oint) 1 applic Q6 BOTH EYES Last administered on 12/07/18at 05:08; Admin Dose 1 APPLIC; Start 12/07/18 at 00:00 Eye Lubricant (Artificial Tears Oph) 2 drop Q6 BOTH EYES Last administered on 12/07/18at 05:07; Admin Dose 2 DROP; Start 12/07/18 at 00:00 Magnesium Sulfate 50 ml @ 25 mls/hr PRN PRN IVPB IV PROTOCOL; Start 12/06/18 at 20:30 Potassium Chloride 50 ml @ 25 mls/hr PRN PRN IVPB IV PROTOCOL Last administered on 12/07/18at 08:33; Admin Dose 25 MLS/HR; Start 12/06/18 at 20:30 Heparin Sodium (Porcine) (Heparin (1000 Units/ml)) 4,000 unit AFTER DIALYSIS CATHETER ; Start 12/06/18 at 22:00 Albumin Human 100 ml @ 100 mls/hr WITH DIALYSIS PRN IV SBP <90 DURING DIALYSIS; Start 12/06/18 at 22:00 Sodium Chloride (NS) -To prime the dialy... DIRECTED FOR HD PRN IV HD; Start 12/06/18 at 22:00 Phenytoin 200 mg/ Sodium Chloride 54 ml @ 112 mls/hr AM IV Last administered on 12/07/18at 09:17; Admin Dose 112 MLS/HR; Start 12/07/18 at 09:00 Phenytoin 200 mg/ Sodium Chloride 54 ml @ 112 mls/hr PC LUNCH IV ; Start 12/07/18 at 12:30 Phenytoin 300 mg/ Sodium Chloride 56 ml @ 112 mls/hr 2100 IV ; Start 12/07/18 at 21:00 Pantoprazole (Protonix Iv) 40 mg DAILY@06 IV Last administered on 12/07/18at 05:07; Admin Dose 40 MG; Start 12/07/18 at 06:00 Potassium Phosphate 40 meq/ Sodium Chloride 259.0909 ml @ 64.773 m... ONCE ONCE IVPB ; Start 12/07/18 at 09:30; Stop 12/07/18 at 13:29 Assessment/Plan Assessment/Plan (Daily) IMP: 1. Cardiopulmonary Arrest--initially secondary to NSVT vs. Afib with aberrancy, thereafter course complicated by Torsades with notable QTc prolongation. 2. Intermittent Bradycardia with QTc prolongation--possibly triggered by h ypokalemia and hypomagnesemia 3. Respiratory Failure/Vent 2/2 #1 4. Shock--likely cardiogenic--improved 5. ESRD on HD 6. Sepsis 7. HTN heart disease 8. DM RECS: 1. Maintain K+ > 4 and Mg > 2. 2. Would consider overdrive pacing with isoproterenol if needed 3. Continue dopamine gtt 4. De-escalate abx 5. Continue hypothermia protocol 6. Follow cultures 7. Would benefit from right and left heart cath once clinically more stable 8. Vent--> reduce rate 40 min cc time ORQUIDEA VALDEZ MD Dec 07, 2018 10:27
[2018-12-07] MEDS ORDERED: PHENYLephrine 20MG IN 250 ML 250 ML ONE (13:24)
[2018-12-07] MEDS: NORepinephrine 8MG/250 ML (PMX 250 ML IV SCH (13:25)
[2018-12-07] MEDS: ALBUMIN HUMAN 25% 100 ML IV SCH ×2 (14:01→20:32)
[2018-12-07] MEDS: DOPamine-D5W 1.6 MG/ML 250 ML IV SCH (15:29)
[2018-12-07] MEDS: ACETAMINOPHEN 650 MG SUPP PR SCH (17:40)
[2018-12-07] MEDS: ACETAMINOPHEN 650MG/20.3ML CUP PO SCH (17:41)
[2018-12-07] MEDS: CEFEPIME 1GM/50 ML (PMX) 50 ML IVPB SCH (20:19)
[2018-12-07] MEDS: PHENYTOIN 300 MG in SOD CHLORIDE 0.9% 50 ML IV SCH (21:12)
[2018-12-08] VITALS (101 sets, daily range): BP systolic 87–148; BP diastolic 39–92; PULSE 65–84; RESP 11–30
[2018-12-08] MEDS: OCULAR LUBRICANT 3.5 GM OPH OINT BOTH EYES SCH ×4 (00:04→17:31)
[2018-12-08] MEDS: ARTIFICIAL TEARS 15 ML OPH BOTH EYES SCH ×4 (00:04→17:30)
[2018-12-08] MEDS: ACETAMINOPHEN 650 MG SUPP PR SCH ×3 (00:04→11:39)
[2018-12-08] MEDS: ACETAMINOPHEN 650MG/20.3ML CUP PO SCH ×4 (00:05→17:22)
[2018-12-08] MEDS: ACCU-CHEK XX SCH ×9 (00:23→08:01)
[2018-12-08] MEDS: PROPOFOL 100 ML IV SCH ×2 (03:13→16:30)
[2018-12-08] MEDS: MIDAZOLAM (DRIP) 50 mg/50 mL 50 ML IV SCH ×2 (04:51→15:46)
[2018-12-08] MEDS: ALBUMIN HUMAN 25% 100 ML IV SCH (05:39)
[2018-12-08] MEDS: PANTOPRAZOLE 40 MG INJ IV SCH (05:41)
[2018-12-08] MEDS: DOPamine-D5W 1.6 MG/ML 250 ML IV SCH (05:52)
[2018-12-08] MEDS ORDERED: FENTAnyl (DRIP) 1000 mcg/100mL 100 ML IV SCH (06:30)
[2018-12-08] MEDS: CALCIUM ACETATE 667 MG CAP PO SCH ×3 (07:30→17:21)
[2018-12-08] MEDS: BRIMONIDINE 0.2% 5 ML BTL BOTH EYES SCH (08:08)
[2018-12-08] MEDS: LEVETIRACETAM 500 MG (PMX) 100 ML IVPB SCH ×2 (08:08→20:42)
[2018-12-08] MEDS: LACTULOSE 30ML CUP PO SCH ×2 (09:00→20:34)
[2018-12-08] MEDS: ASPIRIN 81 MG TAB PO SCH (09:00)
[2018-12-08] MEDS: MULTIVIT/CA CARB/B CMPLX/FA TAB PO SCH (09:00)
[2018-12-08] MEDS: PHENYTOIN IV SCH ×2 (09:13→12:49)
[2018-12-08] MEDS: SOD CHLORIDE 0.9% IV SCH ×2 (09:13→12:49)
--- NOTE | 2018-12-08 09:48 | CONS ---
Assessment/Plan Assessment/Plan Assessment/Plan (Daily) Chest x-ray showing mild pulmonary edema. Ventilator setting; AC of 12, tidal volume 400, PEEP of 5, 30% FiO2. Patient is currently on Versed 10 mg/h, fentanyl 25 mics per hour, insulin 1 unit/h. Assessment recommendations; 1. Patient admitted with respiratory failure with sepsis due to bilateral pneumonia, currently on appropriate antimicrobial regimen. 2. Status post cardiac arrest, on hypothermia protocol. Patient has exhibited hemodynamic stability. 3. Chronic renal failure, on hemodialysis. 4. Persistent mild pulmonary edema. 5. Staph aureus bacteremia. 6. Underlying obesity possibly underlying sleep apnea as well. 7. Diabetes and seizure disorder. Continue current supportive care. Mental status will be evaluated once patient is off hypothermia protocol. Continue supportive measures. Obtain follow-up chest x-ray 24 hours. Prognosis is guarded. I did have a detailed discussion with the patient's sister at bedside answered all her questions. 35 minutes of critical care time was spent evaluating the patient. Consultation Date/Type/Reason Admit Date/Time Dec 06, 2018 at 12:45 Initial Consult Date 12/06/18 Type of Consult Pulmonary/critical care Reason for Consultation Patient's condition is critical. Currently on hypothermia protocol. To be discontinued around 10 AM today. Patient has remained hemodynamically stable. General exam; young female, orally intubated, sedated, currently no distress. H EENT exam; supple neck, JVD difficult to see because of short neck. Orally intubated. No neck masses. Patient has fair dentition. Pupils are midsize. Chest exam; diminished but clear breath sounds. S1-S2 audible, no murmurs. Regular rhythm. Abdomen exam; soft, protuberant. No organomegaly. Bowel sounds audible. Extremity exam; trace edema. [employer] exam; patient is sedated. Requesting Provider: BEAN BEST MD Date/Time of Note DATE: 12/08/18 TIME: 09:45 Exam/Review of Systems Exam Vitals Vital Signs Date Temp Pulse Resp B/P (MAP) Pulse Ox O2 O2 Flow FiO2 Time Delivery Rate 12/08/18 74 12 97 30 09:33 12/08/18 118/48 07:45 (71) 12/08/18 97.2 07:00 12/08/18 Mechanical 07:00 Ventilator 12/06/18 4.0 11:00 Intake and Output 12/07/18 12/07/18 12/08/18 1515:00 23:00 07:00 IntakeIntake Total 889.1139 ml 427.268 ml 309.018 ml OutputOutput Total 0 ml BalanceBalance 889.1139 ml 427.268 ml 309.018 ml Results Result Diagram: 12/08/18 0530 12/08/18 0530 Results 24hrs Laboratory Tests Test 12/07/18 10:39 12/07/18 12:13 12/07/18 12:15 12/07/18 12:42 Bedside Glucose 92 99 Blood Gas Blood arterial Specimen Source Arterial Blood 12/07/2018 12:40:0 Date Drawn 4 PM Arterial Blood 7.525 H pH (Temp corrected) Arterial Blood 40.6 pCO2 (Temp correct) Arterial Blood 109.2 H pO2 (Temp corrected) Arterial Blood 33.9 H HCO3 Arterial Blood 9.0 H Base Excess Arterial Blood 98.0 Oxygen Saturatio n Stanislaw Test ACCEPTAB Arterial Blood Left Radial Gas Puncture Site Arterial 0.2 Blood Carboxyhem oglobin Arterial Blood 0.3 Methemoglobin Blood Gas A-a O2 133.0 H Differential Oxyhemoglobin 97.5 Percent Blood Gas 33.1 Temperature Blood Gas 12.0 Respiration Rate Blood Gas Actual 12 Respiration Rate Blood Gas VENT - AC Modality FiO2 40.0 Blood Gas Tidal 400.0 Volume Blood Gas Low 5.0 PEEP Setting Blood Gas DS Notified Whom Blood Gas 12/07/2018 12:52:1 Notified Time 4 PM White Blood 7.4 Count Red Blood Count 3.57 L Hemoglobin 10.6 L Hematocrit 33.3 L Mean Corpuscular 93.3 Volume Mean Corpuscular 29.7 Hemoglobin Mean Corpuscular 31.8 L Hemoglobin Irasema nt Red Cell 14.1 Distribution Width Platelet Count 106 L Mean Platelet 10.9 H Volume Immature 0.500 H Granulocytes % Neutrophils % 89.0 H Lymphocytes % 5.1 L Monocytes % 5.3 Eosinophils % 0.0 Basophils % 0.1 Nucleated Red 0.0 Blood Cells % Immature 0.040 H Granulocytes # Neutrophils # 6.6 Lymphocytes # 0.4 L Monocytes # 0.4 Eosinophils # 0.0 Basophils # 0.0 Nucleated Red 0.0 Blood Cells # Sodium Level 138 Potassium Level 4.3 Chloride Level 94 L Carbon Dioxide 38 H Level Anion Gap 6 Blood Urea 28 H Nitrogen Creatinine 4.47 H Est Glomerular 11 L Filtrat Rate mL/min Glucose Level 100 Lactic Acid 1.1 Level Calcium Level 9.0 Phosphorus Level 2.8 Magnesium Level 2.2 Troponin I 0.014 Test 12/07/18 14:34 12/07/18 16:35 12/07/18 18:13 12/07/18 18:31 Bedside Glucose 104 124 Blood Gas Blood arterial Specimen Source Arterial Blood 12/07/2018 6:15:53 Date Drawn PM Arterial Blood 7.476 H pH (Temp corrected) Arterial Blood 45.1 H pCO2 (Temp correct) Arterial Blood 150.9 H pO2 (Temp corrected) Arterial Blood 33.8 H HCO3 Arterial Blood 7.9 H Base Excess Arterial Blood 98.9 H Oxygen Saturatio n Stanislaw Test ACCEPTAB Arterial Blood Left Radial Gas Puncture Site Arterial 0.7 Blood Carboxyhem oglobin Arterial Blood 0.3 Methemoglobin Blood Gas A-a O2 86.0 H Differential Oxyhemoglobin 97.9 Percent Blood Gas 33.2 Temperature Blood Gas 12.0 Respiration Rate Blood Gas Actual 13 Respiration Rate Blood Gas VENT - AC Modality FiO2 40.0 Blood Gas Tidal 400.0 Volume Blood Gas Low 5.0 PEEP Setting Blood Gas I. HERMILA RN Critical Value Read Back Blood Gas RDIX Notified Whom Blood Gas 12/07/2018 6:37:34 Notified Time PM White Blood 7.8 Count Red Blood Count 3.58 L Hemoglobin 10.7 L Hematocrit 33.9 L Mean Corpuscular 94.7 Volume Mean Corpuscular 29.9 Hemoglobin Mean Corpuscular 31.6 L Hemoglobin Irasema nt Red Cell 14.1 Distribution Width Platelet Count 91 L Mean Platelet 11.0 H Volume Immature 0.400 Granulocytes % Neutrophils % 90.6 H Lymphocytes % 4.9 L Monocytes % 4.0 Eosinophils % 0.0 Basophils % 0.1 Nucleated Red 0.0 Blood Cells % Immature 0.030 Granulocytes # Neutrophils # 7.0 Lymphocytes # 0.4 L Monocytes # 0.3 Eosinophils # 0.0 Basophils # 0.0 Nucleated Red 0.0 Blood Cells # Sodium Level 139 Potassium Level 4.7 Chloride Level 92 L Carbon Dioxide 36 H Level Anion Gap 11 Blood Urea 31 H Nitrogen Creatinine 4.52 H Est Glomerular 10 L Filtrat Rate mL/min Glucose Level 109 Lactic Acid 1.5 Level Calcium Level 9.1 Phosphorus Level 4.1 Magnesium Level 2.2 Troponin I 0.035 Test 12/07/18 18:43 12/07/18 20:24 12/07/18 20:56 12/07/18 22:30 Bedside Glucose 115 92 91 Prothrombin Time 19.0 H Prothrombin Time 1.5 Ratio INR 1.58 International Normalized Ratio Activated 37.9 H Partial Thrombop last Time Fibrinogen 334.0 # Amylase Level 40 Lipase 14 L Test 12/08/18 00:11 12/08/18 00:13 12/08/18 00:23 12/08/18 02:30 White Blood 7.4 Count Red Blood Count 3.18 L Hemoglobin 9.7 L Hematocrit 30.1 L Mean Corpuscular 94.7 Volume Mean Corpuscular 30.5 Hemoglobin Mean Corpuscular 32.2 Hemoglobin Irasema nt Red Cell 14.2 Distribution Width Platelet Count 91 L Mean Platelet 10.9 H Volume Immature 0.400 Granulocytes % Neutrophils % 88.1 H Lymphocytes % 6.9 L Monocytes % 4.2 Eosinophils % 0.1 Basophils % 0.3 Nucleated Red 0.0 Blood Cells % Immature 0.030 Granulocytes # Neutrophils # 6.5 Lymphocytes # 0.5 L Monocytes # 0.3 Eosinophils # 0.0 Basophils # 0.0 Nucleated Red 0.0 Blood Cells # Sodium Level 139 Potassium Level 4.5 Chloride Level 92 L Carbon Dioxide 34 H Level Anion Gap 13 Blood Urea 32 H Nitrogen Creatinine 4.69 H Est Glomerular 10 L Filtrat Rate mL/min Glucose Level 111 Lactic Acid 1.9 Level Calcium Level 9.2 Phosphorus Level 4.0 Magnesium Level 2.1 Troponin I 0.050 Blood Gas Blood arterial Specimen Source Arterial Blood 12/08/2018 12:15:5 Date Drawn 8 AM Arterial Blood 7.466 H pH (Temp corrected) Arterial Blood 44.3 pCO2 (Temp correct) Arterial Blood 103.5 H pO2 (Temp corrected) Arterial Blood 32.0 H HCO3 Arterial Blood 6.7 H Base Excess Arterial Blood 97.9 Oxygen Saturatio n Stanislaw Test ACCEPTAB Arterial Blood Left Radial Gas Puncture Site Arterial 0.6 Blood Carboxyhem oglobin Arterial Blood 0 Methemoglobin Blood Gas A-a O2 133.2 H Differential Oxyhemoglobin 97.3 Percent Blood Gas 34.5 Temperature Blood Gas 12.0 Respiration Rate Blood Gas Actual 13 Respiration Rate Blood Gas VENT - AC Modality FiO2 40.0 Blood Gas Tidal 400.0 Volume Blood Gas Low 5.0 PEEP Setting Blood Gas 32.0 Inspiratory Pressure Blood Gas MM Notified Whom Blood Gas 12/08/2018 12:25:3 Notified Time 2 AM Bedside Glucose 106 130 Test 12/08/18 04:31 12/08/18 05:00 12/08/18 05:30 12/08/18 06:29 Bedside Glucose 120 140 Blood Gas Blood arterial Specimen Source Arterial Blood 12/08/2018 4:40:00 Date Drawn AM Arterial Blood 7.462 H pH (Temp corrected) Arterial Blood 46.5 H pCO2 (Temp correct) Arterial Blood 65.6 L pO2 (Temp corrected) Arterial Blood 33.1 H HCO3 Arterial Blood 7.8 H Base Excess Arterial Blood 93.4 L Oxygen Saturatio n Stanislaw Test ACCEPTAB Arterial Blood Left Radial Gas Puncture Site Arterial 0.8 Blood Carboxyhem oglobin Arterial Blood 0.3 Methemoglobin Blood Gas A-a O2 95.1 H Differential Oxyhemoglobin 92.4 L Percent Blood Gas 35.0 Temperature Blood Gas 12.0 Respiration Rate Blood Gas Actual 12 Respiration Rate Blood Gas VENT - AC Modality FiO2 30.0 Blood Gas Tidal 400.0 Volume Blood Gas Low 5.0 PEEP Setting Blood Gas 23.0 Inspiratory Pressure Blood Gas MA Notified Whom Blood Gas 12/08/2018 5:15:00 Notified Time AM White Blood 6.2 Count Red Blood Count 2.88 L Hemoglobin 8.6 L Hematocrit 27.2 L Mean Corpuscular 94.4 Volume Mean Corpuscular 29.9 Hemoglobin Mean Corpuscular 31.6 L Hemoglobin Irasema nt Red Cell 14.3 Distribution Width Platelet Count 80 L Mean Platelet 11.9 H Volume Immature 0.800 H Granulocytes % Neutrophils % 86.9 H Lymphocytes % 6.9 L Monocytes % 4.8 Eosinophils % 0.3 Basophils % 0.3 Nucleated Red 0.0 Blood Cells % Immature 0.050 H Granulocytes # Neutrophils # 5.4 Lymphocytes # 0.4 L Monocytes # 0.3 Eosinophils # 0.0 Basophils # 0.0 Nucleated Red 0.0 Blood Cells # Sodium Level 138 Potassium Level 4.5 Chloride Level 95 L Carbon Dioxide 34 H Level Anion Gap 9 Blood Urea 31 H Nitrogen Creatinine 4.99 H Est Glomerular 9 L Filtrat Rate mL/min Glucose Level 127 Lactic Acid 1.3 Level Calcium Level 9.2 Phosphorus Level 3.9 Magnesium Level 2.1 Troponin I 0.075 Random 33.3 Vancomycin Level Test 12/08/18 08:00 12/08/18 09:00 Bedside Glucose 134 Amylase Level 48 Lipase 22 L Medications Medication Current Medications Ondansetron HCl (Zofran Inj) 4 mg Q6H PRN IV NAUSEA AND/OR VOMITING; Start 12/06/18 at 09:30 Albuterol (Proventil 0.083% (Neb)) 2.5 mg Q2H RESP THERAPY PRN NEB SHORTNESS OF BREATH; Start 12/06/18 at 09:30 Acetaminophen (Tylenol Tab) 650 mg Q6H PRN PO PAIN LEVEL 1-3 OR FEVER; Start 12/06/18 at 09:30 Docusate Sodium (Colace) 100 mg Q12H PRN PO CONSTIPATION; Start 12/06/18 at 09:30 Magnesium Hydroxide (Milk Of Mag) 30 ml DAILY PRN PO CONSTIPATION; Start 12/06/18 at 09:30 Aspirin (Aspirin) 81 mg DAILY PO ; Start 12/06/18 at 10:30 Brimonidine Tartrate (Alphagan 0.2%) 1 drop DAILY BOTH EYES Last administered on 12/08/18at 08:08; Admin Dose 1 DROP; Start 12/06/18 at 11:00 Calcium Acetate (Phoslo) 667 mg WITH MEALS PO ; Start 12/06/18 at 12:00 Docusate Sodium (Colace) 200 mg DAILY PO ; Start 12/06/18 at 10:30; Status Hold Lactulose (Enulose) 20 gm BID PO ; Start 12/06/18 at 21:00 Montelukast Sodium (Singulair) 10 mg HS PO ; Start 12/06/18 at 21:00; Status Hold Multivit/Ca Carb/ B Cmplx/FA/Prenat (Mariaelena-Rosas) 1 tab DAILY PO ; Start 12/06/18 at 10:30 Miscellaneous Information 1 ea NOTE XX ; Start 12/06/18 at 10:30 Norepinephrine 250 ml @ 1.875 mls/ hr TITRATE IV Last administered on 12/07/18at 13:25; Admin Dose 56.25 MLS/HR; Start 12/06/18 at 13:00 Atropine Sulfate (Atropine (Syringe)) 1 mg PRN PRN IV prn Last administered on 12/06/18 16:49; Admin Dose 1 MG; Start 12/06/18 at 16:00 Propofol 100 ml @ 3.045 mls/ hr Q12H IV Last administered on 12/07/18 02:24; Admin Dose 24.36 MLS/HR; Start 12/06/18 at 16:30 Diagnostic Test (Pha) (Accu-Chek) 1 ea Q1H XX Last administered on 12/08/18 08:01; Admin Dose 1 EA; Start 12/06/18 at 16:30 Insulin Human Regular 100 unit/ Sodium Chloride 100 ml @ 0 mls/hr PER PROTOCOL IV Last administered on 12/07/18 06:32; Admin Dose 5 MLS/HR; Start 12/06/18 at 16:30 Miscellaneous Information (* Miscellaneous Pharmacy Order) Treatment of Hypoglycemia: 1.BG 51... Per protocol XX ; Start 12/06/18 at 16:30 Dextrose (D50w Syringe) 25 ml Q15M PRN IV .DECREASED GLUCOSE; Start 12/06/18 at 16:30 Dextrose (D50w Syringe) 50 ml Q15M PRN IV .DECREASED GLUCOSE; Start 12/06/18 at 16:30 Midazolam HCl 50 ml @ 1 mls/hr TITRATE IV Last administered on 12/08/18 04:51; Admin Dose 10 MLS/HR; Start 12/06/18 at 16:30 Vancomycin HCl (Vanco Iv Per Pharmacy) VANCOMYCIN PER PHARMACY PER PROTOCOL XX ; Start 12/06/18 at 17:30 Cefepime HCl 50 ml @ 100 mls/hr Q24H IVPB Last administered on 12/07/18 20:19; Admin Dose 100 MLS/HR; Start 12/06/18 at 21:00 Levetiracetam 100 ml @ 400 mls/hr Q12 IVPB Last administered on 12/08/18 08:08; Admin Dose 400 MLS/HR; Start 12/06/18 at 21:00 Dopamine HCl/ Dextrose 250 ml @ 7.613 mls/ hr TITRATE IV Last administered on 12/08/18 05:52; Admin Dose 15.225 MLS/HR; Start 12/06/18 at 17:30 Acetaminophen (Tylenol Supp) [address] TEMP > 37C; Start 12/06/18 at 18:30 Acetaminophen (Tylenol Liquid) 650 mg Q4H PRN PO TEMP > 37C; Start 12/06/18 at 18:30 Acetaminophen (Tylenol Supp) [address] Last administered on 12/08/18at 05:41; Admin Dose 500 MG; Start 12/07/18 at 18:30 Acetaminophen (Tylenol Liquid) 500 mg Q6H PO ; Start 12/07/18 at 18:30 Meperidine HCl (Demerol) 12.5 mg Q4H PRN IV POST OPERATIVE SHIVERING; Start 12/06/18 at 18:30 Meperidine HCl (Demerol) 25 mg Q4H PRN IV POST OPERATIVE SHIVERING; Start 12/06/18 at 18:30 Eye Lubricant (Akwa Oint) 1 applic Q6 BOTH EYES Last administered on 12/08/18at 05:41; Admin Dose 1 APPLIC; Start 12/07/18 at 00:00 Eye Lubricant (Artificial Tears Oph) 2 drop Q6 BOTH EYES Last administered on 12/08/18at 05:41; Admin Dose 2 DROP; Start 12/07/18 at 00:00 Magnesium Sulfate 50 ml @ 25 mls/hr PRN PRN IVPB IV PROTOCOL; Start 12/06/18 at 20:30 Potassium Chloride 50 ml @ 25 mls/hr PRN PRN IVPB IV PROTOCOL Last administered on 12/07/18at 08:33; Admin Dose 25 MLS/HR; Start 12/06/18 at 20:30 Heparin Sodium (Porcine) (Heparin (1000 Units/ml)) 4,000 unit AFTER DIALYSIS CATHETER ; Start 12/06/18 at 22:00 Albumin Human 100 ml @ 100 mls/hr WITH DIALYSIS PRN IV SBP <90 DURING DIALYSIS; Start 12/06/18 at 22:00 Sodium Chloride (NS) -To prime the dialy... DIRECTED FOR HD PRN IV HD; Start 12/06/18 at 22:00 Phenytoin 200 mg/ Sodium Chloride 54 ml @ 112 mls/hr AM IV Last administered on 12/08/18at 09:13; Admin Dose 112 MLS/HR; Start 12/07/18 at 09:00 Phenytoin 200 mg/ Sodium Chloride 54 ml @ 112 mls/hr PC LUNCH IV Last administered on 12/07/18 12:43; Admin Dose 112 MLS/HR; Start 12/07/18 at 12:30 Phenytoin 300 mg/ Sodium Chloride 56 ml @ 112 mls/hr 2100 IV Last administered on 12/07/18at 21:12; Admin Dose 112 MLS/HR; Start 12/07/18 at 21:00 Pantoprazole (Protonix Iv) 40 mg DAILY@06 IV Last administered on 12/08/18 05:41; Admin Dose 40 MG; Start 12/07/18 at 06:00 Fentanyl 100 ml @ 2.5 mls/hr TITRATE IV Last administered on 12/08/18 06:27; Admin Dose 2.5 MLS/HR; Start 12/08/18 at 06:30 DINESH SAVAGE Dec 08, 2018 09:48
--- NOTE | 2018-12-08 09:54 | CONS ---
Assessment/Plan Assessment/Plan Hospital Course (Demo Recall) s/p cardiac arrest:First event was torsades in setting of prolonged QT caused by amiodarone. Subsequent PEA events. Trops negative and no ischemic EKG changes. Had a bradycardic arrest as well which may have been metabolic or related to lidocaine. No further arrhythmias and seems to be stabilizing. EF is 35% and there is significant RV dysfunction and likely underlying severe pulm HTN which cannot be assessed accurately by echo. If she recovers she will need a cardiac cath for evaluation. Staph aureus bacteremia so may all have been sepsis related Shock: Septic with bacteremia Staph aureus bacteremia Torsades: due to amiodarone induced prolonged QTc. Now resolved Prolonged QT: due to amiodarone. Improved Cardiomyopathy: EF 35% RV dysfunction: doubt acute PE but maybe long standing pulm HTN NSVT: Unfortunately the tele bed in the ER that she was in did not record arrhythmias. Per ER MD she had 10-12 beats runs. Acute on chronic systolic CHF: EF 35%. Decompensated on exam HTN : BP initially recorded in the 120s, then >200. Now on dopamine ?Paroxysmal afib: Coumadin is on her med list but INR was normal on admission. With h/o stroke, presumably she had afib in the past. ESRD on HD DM CVA with left weakness -wean off dopamine -antibiotics -hold all BP meds -cardiac cath at some point during hospitalization if neurologic recovery >40 min critical care time Consultation Date/Type/Reason Admit Date/Time Dec 06, 2018 at 12:45 Initial Consult Date 12/06/18 Type of Consult Cardiology Requesting Provider: BEAN BEST MD Date/Time of Note DATE: 12/08/18 TIME: 09:50 24 HR Interval Summary Free Text/Dictation Now with Staph bacteremia. Being rewarmed HR improved and QT improving by tele Exam/Review of Systems Vital Signs Vitals Vital Signs Date Temp Pulse Resp B/P (MAP) Pulse Ox O2 O2 Flow FiO2 Time Delivery Rate 12/08/18 74 12 97 30 09:33 12/08/18 118/48 07:45 (71) 12/08/18 97.2 07:00 12/08/18 Mechanical 07:00 Ventilator 12/06/18 4.0 11:00 Intake and Output 12/07/18 12/07/18 12/08/18 1515:00 23:00 07:00 IntakeIntake Total 889.1139 ml 427.268 ml 309.018 ml OutputOutput Total 0 ml BalanceBalance 889.1139 ml 427.268 ml 309.018 ml Exam Constitutional: No alert ENMT: intubated Neck: No jvd (unable to examine ) Respiratory: diminished breath sounds; No clear to auscultation Cardiovascular: regular rate and rhythm; No edema, No systolic murmur Gastrointestinal: soft; No distended Neurological: No nl mental status, No nl speech Labs Result Diagram: 12/08/1830 12/08/18529 Results 24hrs Laboratory Tests Test 12/07/18 10:39 12/07/18 12:13 12/07/18 12:15 12/07/18 12:42 Bedside Glucose 92 99 Blood Gas Blood arterial Specimen Source Arterial Blood 12/07/2018 12:40:0 Date Drawn 4 PM Arterial Blood 7.525 H pH (Temp corrected) Arterial Blood 40.6 pCO2 (Temp correct) Arterial Blood 109.2 H pO2 (Temp corrected) Arterial Blood 33.9 H HCO3 Arterial Blood 9.0 H Base Excess Arterial Blood 98.0 Oxygen Saturatio n Stanislaw Test ACCEPTAB Arterial Blood Left Radial Gas Puncture Site Arterial 0.2 Blood Carboxyhem oglobin Arterial Blood 0.3 Methemoglobin Blood Gas A-a O2 133.0 H Differential Oxyhemoglobin 97.5 Percent Blood Gas 33.1 Temperature Blood Gas 12.0 Respiration Rate Blood Gas Actual 12 Respiration Rate Blood Gas VENT - AC Modality FiO2 40.0 Blood Gas Tidal 400.0 Volume Blood Gas Low 5.0 PEEP Setting Blood Gas DS Notified Whom Blood Gas 12/07/2018 12:52:1 Notified Time 4 PM White Blood 7.4 Count Red Blood Count 3.57 L Hemoglobin 10.6 L Hematocrit 33.3 L Mean Corpuscular 93.3 Volume Mean Corpuscular 29.7 Hemoglobin Mean Corpuscular 31.8 L Hemoglobin Irasema nt Red Cell 14.1 Distribution Width Platelet Count 106 L Mean Platelet 10.9 H Volume Immature 0.500 H Granulocytes % Neutrophils % 89.0 H Lymphocytes % 5.1 L Monocytes % 5.3 Eosinophils % 0.0 Basophils % 0.1 Nucleated Red 0.0 Blood Cells % Immature 0.040 H Granulocytes # Neutrophils # 6.6 Lymphocytes # 0.4 L Monocytes # 0.4 Eosinophils # 0.0 Basophils # 0.0 Nucleated Red 0.0 Blood Cells # Sodium Level 138 Potassium Level 4.3 Chloride Level 94 L Carbon Dioxide 38 H Level Anion Gap 6 Blood Urea 28 H Nitrogen Creatinine 4.47 H Est Glomerular 11 L Filtrat Rate mL/min Glucose Level 100 Lactic Acid 1.1 Level Calcium Level 9.0 Phosphorus Level 2.8 Magnesium Level 2.2 Troponin I 0.014 Test 12/07/18 14:34 12/07/18 16:35 12/07/18 18:13 12/07/18 18:31 Bedside Glucose 104 124 Blood Gas Blood arterial Specimen Source Arterial Blood 12/07/2018 6:15:53 Date Drawn PM Arterial Blood 7.476 H pH (Temp corrected) Arterial Blood 45.1 H pCO2 (Temp correct) Arterial Blood 150.9 H pO2 (Temp corrected) Arterial Blood 33.8 H HCO3 Arterial Blood 7.9 H Base Excess Arterial Blood 98.9 H Oxygen Saturatio n Stanislaw Test ACCEPTAB Arterial Blood Left Radial Gas Puncture Site Arterial 0.7 Blood Carboxyhem oglobin Arterial Blood 0.3 Methemoglobin Blood Gas A-a O2 86.0 H Differential Oxyhemoglobin 97.9 Percent Blood Gas 33.2 Temperature Blood Gas 12.0 Respiration Rate Blood Gas Actual 13 Respiration Rate Blood Gas VENT - AC Modality FiO2 40.0 Blood Gas Tidal 400.0 Volume Blood Gas Low 5.0 PEEP Setting Blood Gas I. HERMILA RN Critical Value Read Back Blood Gas RDIX Notified Whom Blood Gas 12/07/2018 6:37:34 Notified Time PM White Blood 7.8 Count Red Blood Count 3.58 L Hemoglobin 10.7 L Hematocrit 33.9 L Mean Corpuscular 94.7 Volume Mean Corpuscular 29.9 Hemoglobin Mean Corpuscular 31.6 L Hemoglobin Irasema nt Red Cell 14.1 Distribution Width Platelet Count 91 L Mean Platelet 11.0 H Volume Immature 0.400 Granulocytes % Neutrophils % 90.6 H Lymphocytes % 4.9 L Monocytes % 4.0 Eosinophils % 0.0 Basophils % 0.1 Nucleated Red 0.0 Blood Cells % Immature 0.030 Granulocytes # Neutrophils # 7.0 Lymphocytes # 0.4 L Monocytes # 0.3 Eosinophils # 0.0 Basophils # 0.0 Nucleated Red 0.0 Blood Cells # Sodium Level 139 Potassium Level 4.7 Chloride Level 92 L Carbon Dioxide 36 H Level Anion Gap 11 Blood Urea 31 H Nitrogen Creatinine 4.52 H Est Glomerular 10 L Filtrat Rate mL/min Glucose Level 109 Lactic Acid 1.5 Level Calcium Level 9.1 Phosphorus Level 4.1 Magnesium Level 2.2 Troponin I 0.035 Test 12/07/18 18:43 12/07/18 20:24 12/07/18 20:56 12/07/18 22:30 Bedside Glucose 115 92 91 Prothrombin Time 19.0 H Prothrombin Time 1.5 Ratio INR 1.58 International Normalized Ratio Activated 37.9 H Partial Thrombop last Time Fibrinogen 334.0 # Amylase Level 40 Lipase 14 L Test 12/08/18 00:11 12/08/18 00:13 12/08/18 00:23 12/08/18 02:30 White Blood 7.4 Count Red Blood Count 3.18 L Hemoglobin 9.7 L Hematocrit 30.1 L Mean Corpuscular 94.7 Volume Mean Corpuscular 30.5 Hemoglobin Mean Corpuscular 32.2 Hemoglobin Irasema nt Red Cell 14.2 Distribution Width Platelet Count 91 L Mean Platelet 10.9 H Volume Immature 0.400 Granulocytes % Neutrophils % 88.1 H Lymphocytes % 6.9 L Monocytes % 4.2 Eosinophils % 0.1 Basophils % 0.3 Nucleated Red 0.0 Blood Cells % Immature 0.030 Granulocytes # Neutrophils # 6.5 Lymphocytes # 0.5 L Monocytes # 0.3 Eosinophils # 0.0 Basophils # 0.0 Nucleated Red 0.0 Blood Cells # Sodium Level 139 Potassium Level 4.5 Chloride Level 92 L Carbon Dioxide 34 H Level Anion Gap 13 Blood Urea 32 H Nitrogen Creatinine 4.69 H Est Glomerular 10 L Filtrat Rate mL/min Glucose Level 111 Lactic Acid 1.9 Level Calcium Level 9.2 Phosphorus Level 4.0 Magnesium Level 2.1 Troponin I 0.050 Blood Gas Blood arterial Specimen Source Arterial Blood 12/08/2018 12:15:5 Date Drawn 8 AM Arterial Blood 7.466 H pH (Temp corrected) Arterial Blood 44.3 pCO2 (Temp correct) Arterial Blood 103.5 H pO2 (Temp corrected) Arterial Blood 32.0 H HCO3 Arterial Blood 6.7 H Base Excess Arterial Blood 97.9 Oxygen Saturatio n Stanislaw Test ACCEPTAB Arterial Blood Left Radial Gas Puncture Site Arterial 0.6 Blood Carboxyhem oglobin Arterial Blood 0 Methemoglobin Blood Gas A-a O2 133.2 H Differential Oxyhemoglobin 97.3 Percent Blood Gas 34.5 Temperature Blood Gas 12.0 Respiration Rate Blood Gas Actual 13 Respiration Rate Blood Gas VENT - AC Modality FiO2 40.0 Blood Gas Tidal 400.0 Volume Blood Gas Low 5.0 PEEP Setting Blood Gas 32.0 Inspiratory Pressure Blood Gas MM Notified Whom Blood Gas 12/08/2018 12:25:3 Notified Time 2 AM Bedside Glucose 106 130 Test 12/08/18 04:31 12/08/18 05:00 12/08/18 05:30 12/08/18 06:29 Bedside Glucose 120 140 Blood Gas Blood arterial Specimen Source Arterial Blood 12/08/2018 4:40:00 Date Drawn AM Arterial Blood 7.462 H pH (Temp corrected) Arterial Blood 46.5 H pCO2 (Temp correct) Arterial Blood 65.6 L pO2 (Temp corrected) Arterial Blood 33.1 H HCO3 Arterial Blood 7.8 H Base Excess Arterial Blood 93.4 L Oxygen Saturatio n Stanislaw Test ACCEPTAB Arterial Blood Left Radial Gas Puncture Site Arterial 0.8 Blood Carboxyhem oglobin Arterial Blood 0.3 Methemoglobin Blood Gas A-a O2 95.1 H Differential Oxyhemoglobin 92.4 L Percent Blood Gas 35.0 Temperature Blood Gas 12.0 Respiration Rate Blood Gas Actual 12 Respiration Rate Blood Gas VENT - AC Modality FiO2 30.0 Blood Gas Tidal 400.0 Volume Blood Gas Low 5.0 PEEP Setting Blood Gas 23.0 Inspiratory Pressure Blood Gas MA Notified Whom Blood Gas 12/08/2018 5:15:00 Notified Time AM White Blood 6.2 Count Red Blood Count 2.88 L Hemoglobin 8.6 L Hematocrit 27.2 L Mean Corpuscular 94.4 Volume Mean Corpuscular 29.9 Hemoglobin Mean Corpuscular 31.6 L Hemoglobin Irasema nt Red Cell 14.3 Distribution Width Platelet Count 80 L Mean Platelet 11.9 H Volume Immature 0.800 H Granulocytes % Neutrophils % 86.9 H Lymphocytes % 6.9 L Monocytes % 4.8 Eosinophils % 0.3 Basophils % 0.3 Nucleated Red 0.0 Blood Cells % Immature 0.050 H Granulocytes # Neutrophils # 5.4 Lymphocytes # 0.4 L Monocytes # 0.3 Eosinophils # 0.0 Basophils # 0.0 Nucleated Red 0.0 Blood Cells # Sodium Level 138 Potassium Level 4.5 Chloride Level 95 L Carbon Dioxide 34 H Level Anion Gap 9 Blood Urea 31 H Nitrogen Creatinine 4.99 H Est Glomerular 9 L Filtrat Rate mL/min Glucose Level 127 Lactic Acid 1.3 Level Calcium Level 9.2 Phosphorus Level 3.9 Magnesium Level 2.1 Troponin I 0.075 Random 33.3 Vancomycin Level Test 12/08/18 08:00 12/08/18 09:00 Bedside Glucose 134 Amylase Level 48 Lipase 22 L Medications Medications Current Medications Ondansetron HCl (Zofran Inj) 4 mg Q6H PRN IV NAUSEA AND/OR VOMITING; Start 12/06/18 at 09:30 Albuterol (Proventil 0.083% (Neb)) 2.5 mg Q2H RESP THERAPY PRN NEB SHORTNESS OF BREATH; Start 12/06/18 at 09:30 Acetaminophen (Tylenol Tab) 650 mg Q6H PRN PO PAIN LEVEL 1-3 OR FEVER; Start 12/06/18 at 09:30 Docusate Sodium (Colace) 100 mg Q12H PRN PO CONSTIPATION; Start 12/06/18 at 09:30 Magnesium Hydroxide (Milk Of Mag) 30 ml DAILY PRN PO CONSTIPATION; Start 12/06/18 at 09:30 Aspirin (Aspirin) 81 mg DAILY PO ; Start 12/06/18 at 10:30 Brimonidine Tartrate (Alphagan 0.2%) 1 drop DAILY BOTH EYES Last administered on 12/08/18at 08:08; Admin Dose 1 DROP; Start 12/06/18 at 11:00 Calcium Acetate (Phoslo) 667 mg WITH MEALS PO ; Start 12/06/18 at 12:00 Docusate Sodium (Colace) 200 mg DAILY PO ; Start 12/06/18 at 10:30; Status Hold Lactulose (Enulose) 20 gm BID PO ; Start 12/06/18 at 21:00 Montelukast Sodium (Singulair) 10 mg HS PO ; Start 12/06/18 at 21:00; Status Hold Multivit/Ca Carb/ B Cmplx/FA/Prenat (Mariaelena-Rosas) 1 tab DAILY PO ; Start 12/06/18 at 10:30 Miscellaneous Information 1 ea NOTE XX ; Start 12/06/18 at 10:30 Norepinephrine 250 ml @ 1.875 mls/ hr TITRATE IV Last administered on 12/07/18 13:25; Admin Dose 56.25 MLS/HR; Start 12/06/18 at 13:00 Atropine Sulfate (Atropine (Syringe)) 1 mg PRN PRN IV prn Last administered on 12/06/18 16:49; Admin Dose 1 MG; Start 12/06/18 at 16:00 Propofol 100 ml @ 3.045 mls/ hr Q12H IV Last administered on 12/07/18 02:24; Admin Dose 24.36 MLS/HR; Start 12/06/18 at 16:30 Diagnostic Test (Pha) (Accu-Chek) 1 ea Q1H XX Last administered on 12/08/18 08:01; Admin Dose 1 EA; Start 12/06/18 at 16:30 Insulin Human Regular 100 unit/ Sodium Chloride 100 ml @ 0 mls/hr PER PROTOCOL IV Last administered on 12/07/18 06:32; Admin Dose 5 MLS/HR; Start 12/06/18 at 16:30 Miscellaneous Information (* Miscellaneous Pharmacy Order) Treatment of Hypoglycemia: 1.BG 51... Per protocol XX ; Start 12/06/18 at 16:30 Dextrose (D50w Syringe) 25 ml Q15M PRN IV .DECREASED GLUCOSE; Start 12/06/18 at 16:30 Dextrose (D50w Syringe) 50 ml Q15M PRN IV .DECREASED GLUCOSE; Start 12/06/18 at 16:30 Midazolam HCl 50 ml @ 1 mls/hr TITRATE IV Last administered on 12/08/18 04:51; Admin Dose 10 MLS/HR; Start 12/06/18 at 16:30 Vancomycin HCl (Vanco Iv Per Pharmacy) VANCOMYCIN PER PHARMACY PER PROTOCOL XX ; Start 12/06/18 at 17:30 Cefepime HCl 50 ml @ 100 mls/hr Q24H IVPB Last administered on 12/07/18 20:19; Admin Dose 100 MLS/HR; Start 12/06/18 at 21:00 Levetiracetam 100 ml @ 400 mls/hr Q12 IVPB Last administered on 12/08/18 08:08; Admin Dose 400 MLS/HR; Start 12/06/18 at 21:00 Dopamine HCl/ Dextrose 250 ml @ 7.613 mls/ hr TITRATE IV Last administered on 12/08/18at 05:52; Admin Dose 15.225 MLS/HR; Start 12/06/18 at 17:30 Acetaminophen (Tylenol Supp) 650 mg Q4H PRN [place] TEMP > 37C; Start 12/06/18 at 18:30 Acetaminophen (Tylenol Liquid) 650 mg Q4H PRN PO TEMP > 37C; Start 12/06/18 at 18:30 Acetaminophen (Tylenol Supp) 500 mg Q6H [place] Last administered on 12/08/18at 05:41; Admin Dose 500 MG; Start 12/07/18 at 18:30 Acetaminophen (Tylenol Liquid) 500 mg Q6H PO ; Start 12/07/18 at 18:30 Meperidine HCl (Demerol) 12.5 mg Q4H PRN IV POST OPERATIVE SHIVERING; Start 12/06/18 at 18:30 Meperidine HCl (Demerol) 25 mg Q4H PRN IV POST OPERATIVE SHIVERING; Start 12/06/18 at 18:30 Eye Lubricant (Akwa Oint) 1 applic Q6 BOTH EYES Last administered on 12/08/18at 05:41; Admin Dose 1 APPLIC; Start 12/07/18 at 00:00 Eye Lubricant (Artificial Tears Oph) 2 drop Q6 BOTH EYES Last administered on 12/08/18at 05:41; Admin Dose 2 DROP; Start 12/07/18 at 00:00 Magnesium Sulfate 50 ml @ 25 mls/hr PRN PRN IVPB IV PROTOCOL; Start 12/06/18 at 20:30 Potassium Chloride 50 ml @ 25 mls/hr PRN PRN IVPB IV PROTOCOL Last administered on 12/07/18at 08:33; Admin Dose 25 MLS/HR; Start 12/06/18 at 20:30 Heparin Sodium (Porcine) (Heparin (1000 Units/ml)) 4,000 unit AFTER DIALYSIS CATHETER ; Start 12/06/18 at 22:00 Albumin Human 100 ml @ 100 mls/hr WITH DIALYSIS PRN IV SBP <90 DURING DIALYSIS; Start 12/06/18 at 22:00 Sodium Chloride (NS) -To prime the dialy... DIRECTED FOR HD PRN IV HD; Start 12/06/18 at 22:00 Phenytoin 200 mg/ Sodium Chloride 54 ml @ 112 mls/hr AM IV Last administered on 12/08/18 09:13; Admin Dose 112 MLS/HR; Start 12/07/18 at 09:00 Phenytoin 200 mg/ Sodium Chloride 54 ml @ 112 mls/hr PC LUNCH IV Last administered on 12/07/18 12:43; Admin Dose 112 MLS/HR; Start 12/07/18 at 12:30 Phenytoin 300 mg/ Sodium Chloride 56 ml @ 112 mls/hr 2100 IV Last administered on 12/07/18 21:12; Admin Dose 112 MLS/HR; Start 12/07/18 at 21:00 Pantoprazole (Protonix Iv) 40 mg DAILY@06 IV Last administered on 12/08/18 05:41; Admin Dose 40 MG; Start 12/07/18 at 06:00 Fentanyl 100 ml @ 2.5 mls/hr TITRATE IV Last administered on 12/08/18 06:27; Admin Dose 2.5 MLS/HR; Start 12/08/18 at 06:30 JJ BRANCH Dec 08, 2018 09:54
--- NOTE | 2018-12-08 11:15 | PN ---
Date/Time of Note Date/Time of Note DATE: 12/08/18 TIME: 11:12 Objective Vitals Vital Signs Date Temp Pulse Resp B/P (MAP) Pulse Ox O2 O2 Flow FiO2 Time Delivery Rate 12/08/18 75 12 113/61 94 10:30 (78) 12/08/18 98.6 10:09 12/08/18 30 09:33 12/08/18 Mechanical 07:00 Ventilator 12/06/18 4.0 11:00 Intake and Output 12/07/18 12/07/18 12/08/18 1515:00 23:00 07:00 IntakeIntake Total 889.1139 ml 427.268 ml 309.018 ml OutputOutput Total 0 ml BalanceBalance 889.1139 ml 427.268 ml 309.018 ml Results Result Diagram: 12/08/1830 12/08/18529 Medications Medications Current Medications Ondansetron HCl (Zofran Inj) 4 mg Q6H PRN IV NAUSEA AND/OR VOMITING; Start 12/06/18 at 09:30 Albuterol (Proventil 0.083% (Neb)) 2.5 mg Q2H RESP THERAPY PRN NEB SHORTNESS OF BREATH; Start 12/06/18 at 09:30 Acetaminophen (Tylenol Tab) 650 mg Q6H PRN PO PAIN LEVEL 1-3 OR FEVER; Start 12/06/18 at 09:30 Docusate Sodium (Colace) 100 mg Q12H PRN PO CONSTIPATION; Start 12/06/18 at 09:30 Magnesium Hydroxide (Milk Of Mag) 30 ml DAILY PRN PO CONSTIPATION; Start 12/06/18 at 09:30 Aspirin (Aspirin) 81 mg DAILY PO ; Start 12/06/18 at 10:30 Brimonidine Tartrate (Alphagan 0.2%) 1 drop DAILY BOTH EYES Last administered on 12/08/18at 08:08; Admin Dose 1 DROP; Start 12/06/18 at 11:00 Calcium Acetate (Phoslo) 667 mg WITH MEALS PO ; Start 12/06/18 at 12:00 Docusate Sodium (Colace) 200 mg DAILY PO ; Start 12/06/18 at 10:30; Status Hold Lactulose (Enulose) 20 gm BID PO ; Start 12/06/18 at 21:00 Montelukast Sodium (Singulair) 10 mg HS PO ; Start 12/06/18 at 21:00; Status Hold Multivit/Ca Carb/ B Cmplx/FA/Prenat (Mariaelena-Rosas) 1 tab DAILY PO ; Start 12/06/18 at 10:30 Miscellaneous Information 1 ea NOTE XX ; Start 12/06/18 at 10:30 Norepinephrine 250 ml @ 1.875 mls/ hr TITRATE IV Last administered on 12/07/18 13:25; Admin Dose 56.25 MLS/HR; Start 12/06/18 at 13:00 Atropine Sulfate (Atropine (Syringe)) 1 mg PRN PRN IV prn Last administered on 12/06/18 16:49; Admin Dose 1 MG; Start 12/06/18 at 16:00 Propofol 100 ml @ 3.045 mls/ hr Q12H IV Last administered on 12/07/18 02:24; Admin Dose 24.36 MLS/HR; Start 12/06/18 at 16:30 Diagnostic Test (Pha) (Accu-Chek) 1 ea Q1H XX Last administered on 12/08/18 08:01; Admin Dose 1 EA; Start 12/06/18 at 16:30 Insulin Human Regular 100 unit/ Sodium Chloride 100 ml @ 0 mls/hr PER PROTOCOL IV Last administered on 12/07/18 06:32; Admin Dose 5 MLS/HR; Start 12/06/18 at 16:30 Miscellaneous Information (* Miscellaneous Pharmacy Order) Treatment of Hypoglycemia: 1.BG 51... Per protocol XX ; Start 12/06/18 at 16:30 Dextrose (D50w Syringe) 25 ml Q15M PRN IV .DECREASED GLUCOSE; Start 12/06/18 at 16:30 Dextrose (D50w Syringe) 50 ml Q15M PRN IV .DECREASED GLUCOSE; Start 12/06/18 at 16:30 Midazolam HCl 50 ml @ 1 mls/hr TITRATE IV Last administered on 12/08/18 04:51; Admin Dose 10 MLS/HR; Start 12/06/18 at 16:30 Vancomycin HCl (Vanco Iv Per Pharmacy) VANCOMYCIN PER PHARMACY PER PROTOCOL XX ; Start 12/06/18 at 17:30 Cefepime HCl 50 ml @ 100 mls/hr Q24H IVPB Last administered on 4/7/19at 20:19; Admin Dose 100 MLS/HR; Start 12/06/18 at 21:00 Levetiracetam 100 ml @ 400 mls/hr Q12 IVPB Last administered on 12/08/18 08:08; Admin Dose 400 MLS/HR; Start 12/06/18 at 21:00 Dopamine HCl/ Dextrose 250 ml @ 7.613 mls/ hr TITRATE IV Last administered on 12/08/18 05:52; Admin Dose 15.225 MLS/HR; Start 12/06/18 at 17:30 Acetaminophen (Tylenol Supp) 650 mg Q4H PRN [place] TEMP > 37C; Start 12/06/18 at 18:30 Acetaminophen (Tylenol Liquid) 650 mg Q4H PRN PO TEMP > 37C; Start 12/06/18 at 18:30 Acetaminophen (Tylenol Supp) 500 mg Q6H [place] Last administered on 12/08/18 05:41; Admin Dose 500 MG; Start 12/07/18 at 18:30 Acetaminophen (Tylenol Liquid) 500 mg Q6H PO ; Start 12/07/18 at 18:30 Meperidine HCl (Demerol) 12.5 mg Q4H PRN IV POST OPERATIVE SHIVERING; Start 12/06/18 at 18:30 Meperidine HCl (Demerol) 25 mg Q4H PRN IV POST OPERATIVE SHIVERING; Start 12/06/18 at 18:30 Eye Lubricant (Akwa Oint) 1 applic Q6 BOTH EYES Last administered on 12/08/18 05:41; Admin Dose 1 APPLIC; Start 12/07/18 at 00:00 Eye Lubricant (Artificial Tears Oph) 2 drop Q6 BOTH EYES Last administered on 12/08/18 05:41; Admin Dose 2 DROP; Start 12/07/18 at 00:00 Magnesium Sulfate 50 ml @ 25 mls/hr PRN PRN IVPB IV PROTOCOL; Start 12/06/18 at 20:30 Potassium Chloride 50 ml @ 25 mls/hr PRN PRN IVPB IV PROTOCOL Last administered on 12/07/18 08:33; Admin Dose 25 MLS/HR; Start 12/06/18 at 20:30 Heparin Sodium (Porcine) (Heparin (1000 Units/ml)) 4,000 unit AFTER DIALYSIS CATHETER ; Start 12/06/18 at 22:00 Albumin Human 100 ml @ 100 mls/hr WITH DIALYSIS PRN IV SBP <90 DURING DIALYSIS; Start 12/06/18 at 22:00 Sodium Chloride (NS) -To prime the dialy... DIRECTED FOR HD PRN IV HD; Start 12/06/18 at 22:00 Phenytoin 200 mg/ Sodium Chloride 54 ml @ 112 mls/hr AM IV Last administered on 12/08/18at 09:13; Admin Dose 112 MLS/HR; Start 12/07/18 at 09:00 Phenytoin 200 mg/ Sodium Chloride 54 ml @ 112 mls/hr PC LUNCH IV Last administered on 12/07/18at 12:43; Admin Dose 112 MLS/HR; Start 12/07/18 at 12:30 Phenytoin 300 mg/ Sodium Chloride 56 ml @ 112 mls/hr 2100 IV Last administered on 12/07/18at 21:12; Admin Dose 112 MLS/HR; Start 12/07/18 at 21:00 Pantoprazole (Protonix Iv) 40 mg DAILY@06 IV Last administered on 12/08/18at 05:41; Admin Dose 40 MG; Start 12/07/18 at 06:00 Fentanyl 100 ml @ 2.5 mls/hr TITRATE IV Last administered on 12/08/18at 06:27; Admin Dose 2.5 MLS/HR; Start 12/08/18 at 06:30 VTE Prophylaxis Risk score (from [facility] [place] risk: 8 SCD applied (from [facility] [place] Yes Lines/Catheters IV Catheter Type: Wheeler in Place: No Assessment/Plan Hospital Course Subjective Patient in rewarming phase of hypothermia protocol Objective Physical exam General: Patient is intubated and sedated Mentation: Patient is intubated and sedated Head: Normocephalic atraumatic Eyes: EOMI, pupils mildly reactive to light Neck: Supple, nontender, midline Respiratory: Coarse to auscultation bilaterally Cardiovascular: Tachycardic rate, no obvious murmurs Gastrointestinal: non-tender to palpation, bowel sounds heard. Neurological: Unable to assess due to sedation Skin: No new skin lesions Assessment/Plan 1. S/p Cardiac arrest with ROSC - Patient is currently undergoing hypothermia protocol and will continue monitoring neurological status - Patient initially with NSVT and given prolonged QT and placement on Amiodarone went into torsades then coded. Patient coded another 3 times total secondary to PEA arrest with ROSC - Cardiology on board and appreciate recommendations. Continue on Dopamine. Will need Cardiac cath if patient recovers - trops remain negative indicating non ischemic etiology for arrest Staph bacteremia -IV antibiotic -Infectious disease consulted 2. ?Arrhythmia, NSVT - Patient has ? afib and may have had afib with aberrancy but initial event was not captured - EKG showing prolonged QT - noted on Coumadin on med rec but INR normal at time of presentation. Will need to touch base with fam vs patient when she recovers on why she takes Coumadin 3. Cardiogenic shock - Continue on Dopamine 4. Sepsis of unknown source - likely aspiration given multiple cardiac arrest episodes. CXR from this am still pending - snider cultures drawn and continue on current broad antibiotics - LA normalized 5. Hypokalemia - replacing 6. DM -Insulin drip changed to sliding scale - A1c noted and uncontrolled - discussed with family need for better glucose control after discharge 7. ESRD on HD - Nephrology,Dr. Reddy, on board and appreciate consultation. T/T/S scheduled 8. h/o CVA - continue current medications 9. HTN - currently requiring pressor support 10. Disposition - Continue hypothermia per protocol Continue monitoring for improvement in mentation - Palliative on board. Family would like patient to remain full code for now >40 minutes of critical care time spent with patient and family at bedside BOZENA PARK Dec 08, 2018 11:15
--- NOTE | 2018-12-08 11:24 | CONS ---
DATE OF ADMISSION: 12/06/2018 DATE OF CONSULTATION: 12/08/2018 TYPE OF CONSULTATION: Infectious Disease. REASON FOR CONSULTATION: Antibiotic management. HISTORY OF PRESENT ILLNESS: The patient is a 47-year-old female with end-stage renal diseas e, hypertension, morbid obesity who came to the emergency room with weakness and shortness of breath. The patient is a dialysis patient, could not complete her dialysis. She felt extremely weak. She has a history of AV shunt. History of stroke in the past, anemia and seizures. On admission on the , her white count was 8.6, hemoglobin and hematocrit of 9.9 and 31.0, platelet count 142,000. BUN and creatinine 15/3.05, glucose of 228. She was started on some amiodarone. She went to a short ru n of ventricular tachycardia. HOSPITAL COURSE: Her chest x-ray on the showed a small right pleural effusion with mild intersti tial edema. Her Perm-A-Cath has been removed. On the she was intubated to protect her airway an d an NG tube was placed again. There were stents in the right subclavian brachiocephalic veins. Hea rt is not enlarged. Mediastinum is not widened. Underlying hazy right lung infiltrate is suspected. No pneumothorax. She had a line placed, left jugular central line with distal tip and uncertain lo cation, bilateral pulmonary vascular congestion with mild diffuse airspace disease suspicious for pul monary edema. As noted, she had an ET tube and an NG tube placed. The patient was seen by Dr. Cindy douglas, cardiopulmonary arrest, initially secondary to SVT versus atrial fibrillation with imbalancing t hereafter course complicated by torsades with notable QT prolongation, intermittent bradycardia, poss ibly due to chronotropic incompetence versus ischemia, respiratory failure, shock, likely cardiogenic . I cannot exclude obstructive clinical picture not consistent with massive PE. She has end-stage r enal disease on hemodialysis, sepsis, hypertension, diabetes mellitus. She had transcutaneous pacing for the time being and was placed on Levophed and broad spectrum antibiotic therapy. The patient gr ew Staphylococcus aureus from her blood cultures from 12/06/2018, 2 sets, is currently on cefepime, v ancomycin, propofol and fentanyl. On 12/07/2018, x-ray showed interstitial edema with right pleural effusion. On the , chest x-ray showed her tubes and lines in stable position, worsening bilateral infiltrates, again more extensive on the right with development of a small left pleural effusion, wo rsening moderate right pleural effusion, no pneumothorax present and vascular stents are again seen w ith a right subclavian innominate vein region. Today, Dr. Ramasy saw her. She has an x-ray showing m ild pulmonary edema. The patient is with respiratory failure secondary to bilateral pneumonia, curre ntly on appropriate antibiotic therapy. PHYSICAL EXAMINATION: VITAL SIGNS: Stable. She has an ET tube, NG tube, a left internal jugular line. SKIN: Without generalized rash. HEENT: Within normal limits. NECK: Supple. LYMPH NODES: None palpable. CHEST: Decreased breath sounds at the bases. HEART: Without murmur or gallop. ABDOMEN: Soft, nontender, without organomegaly, splenomegaly or masses. EXTREMITIES: Without cyanosis, clubbing, or edema. RECTAL AND GENITAL: Deferred. NEUROLOGIC: No focal neurological abnormality. ANCILLARY LABORATORY DATA: Her white count is 6.2 today. BUN and creatinine 31/4.99. IMPRESSION AND PLAN: We will continue her on vancomycin and cefepime. She may benefit from a 2D ech ocardiogram when she is more stable. I will leave that up to Dr. Branch who is also seeing the p atient. She has a cardiomyopathy with ejection fraction of 35%. I will dictate my findings to the ospitalist and to the aforementioned consultants. Dictated By: YANE BENITEZ MD, JD/TRIPP Conf#: [id number] DID#: [id number] CC: JJ BRANCH MD; BOZENA PARK MD; BEAN BEST MD;*End*
[2018-12-08] MEDS ORDERED: DEXTROSE 50% 50 ML SYRINGE IV PRN ×2 (11:30)
[2018-12-08] MEDS ORDERED: GLUCOSE GEL 15 GRAM TUBE BUCCAL PRN (11:30)
[2018-12-08] MEDS ORDERED: GLUCOSE GEL 15 GRAM TUBE PO PRN ×2 (11:30)
[2018-12-08] MEDS ORDERED: GLUCAGON 1 MG INJ IM PRN (11:30)
[2018-12-08] MEDS: INSULIN ASPART [NOVOLOG] 3 ML PEN SC SCH ×3 (12:51→20:41)
--- NOTE | 2018-12-08 13:09 | RADRPT ---
Vent Rate: 75 bpm RR Interval: 0 msec AR Interval: 152 msec QRS Duration: 82 msec QT Interval: 516 msec QTC Interval: 576 msec P-R-T [place]: 22 - 8 - 60 degrees Normal sinus rhythm Low voltage QRS Nonspecific ST and T wave abnormality Prolonged QT Abnormal ECG Electronically Signed By: Farhan Lopez
--- NOTE | 2018-12-08 13:11 | RADRPT ---
Vent Rate: 65 bpm RR Interval: 0 msec SC Interval: 174 msec QRS Duration: 84 msec QT Interval: 524 msec QTC Interval: 544 msec P-R-T [place]: 18 - -18 - 27 degrees Normal sinus rhythm Nonspecific ST abnormality Prolonged QT Abnormal ECG Electronically Signed By: Farhan Lopez
--- NOTE | 2018-12-08 16:08 | CONS ---
Assessment/Plan Assessment/Plan Assessment/Plan (Daily) 1. Cardiopulmonary Arrest--initially secondary to NSVT vs. Afib with aberrancy, thereafter course complicated by Torsades with notable QT prolongation. - Currently on Hypothermia protocol 2. ESRD on HD [facility] [facility] 3. acute hypoxemic respiratory failure due to cardiac arrest s/p Intubation on ventilator 4. Shock--likely cardiogenic; cannot exclude obstructive though clinical picture not consistent with massive PE. 5. Sepsis--unclear source at this time 6. HTN heart disease 7.. DM Plan: remains intubated, finishing hypothermia protocol, HD ordered for today but HD nurse not able to do HD still, as per [facility] they can not do hD due to not catching up- I told them pt i sin ICU , they said they will be able to do HD first in AM , s/p Evaluation by cardiology and Graphics Intern, Remains intubated, finishing hypothermia protocol will keep pt on , , saturday schedule while being in hospital will follow up Consultation Date/Type/Reason Admit Date/Time Dec 06, 2018 at 12:45 Initial Consult Date 12/06/18 Type of Consult NEPHROLOGY Requesting Provider: BEAN BEST MD Date/Time of Note DATE: 12/08/18 TIME: 16:08 24 HR Interval Summary Free Text/Dictation pt remains intubated, finishing hypothermia protocol, BP stable, HD nurse unable to do HD still Exam/Review of Systems Exam Vitals Vital Signs Date Temp Pulse Resp B/P (MAP) Pulse Ox O2 O2 Flow FiO2 Time Delivery Rate 12/08/18 76 13 90/48 (62) 97 13:00 12/08/18 98.6 12:24 12/08/18 30 11:38 12/08/18 Mechanical 07:00 Ventilator 12/06/18 4.0 11:00 Intake and Output 12/07/18 12/07/18 12/08/18 1414:59 22:59 06:59 IntakeIntake Total 778.9969 ml 539.237 ml 307.824 ml OutputOutput Total 0 ml BalanceBalance 778.9969 ml 539.237 ml 307.824 ml Exam Constitutional: non-verbal Head: normocephalic, atraumatic Eyes: nl conjunctiva, nl lids ENMT: intubated Neck: supple, non-tender Respiratory: diminished breath sounds Cardiovascular: irregular rhythm Gastrointestinal: soft, nl liver, spleen, non-tender Extremities: normal pulses, other (cold ) Neurological: unresponsive Skin: nl turgor Results Result Diagram: 12/08/18 0530 12/08/18 0530 Results 24hrs Laboratory Tests Test 12/07/18 16:35 12/07/18 18:13 12/07/18 18:31 12/07/18 18:43 Bedside Glucose 124 115 Blood Gas Blood arterial Specimen Source Arterial Blood 12/07/2018 6:15:53 Date Drawn PM Arterial Blood 7.476 H pH (Temp corrected) Arterial Blood 45.1 H pCO2 (Temp correct) Arterial Blood 150.9 H pO2 (Temp corrected) Arterial Blood 33.8 H HCO3 Arterial Blood 7.9 H Base Excess Arterial Blood 98.9 H Oxygen Saturatio n Stanislaw Test ACCEPTAB Arterial Blood Left Radial Gas Puncture Site Arterial 0.7 Blood Carboxyhem oglobin Arterial Blood 0.3 Methemoglobin Blood Gas A-a O2 86.0 H Differential Oxyhemoglobin 97.9 Percent Blood Gas 33.2 Temperature Blood Gas 12.0 Respiration Rate Blood Gas Actual 13 Respiration Rate Blood Gas VENT - AC Modality FiO2 40.0 Blood Gas Tidal 400.0 Volume Blood Gas Low 5.0 PEEP Setting Blood Gas Juanito CLEANING RN Critical Value Read Back Blood Gas RDIX Notified Whom Blood Gas 12/07/2018 6:37:34 Notified Time PM White Blood 7.8 Count Red Blood Count 3.58 L Hemoglobin 10.7 L Hematocrit 33.9 L Mean Corpuscular 94.7 Volume Mean Corpuscular 29.9 Hemoglobin Mean Corpuscular 31.6 L Hemoglobin Irasema nt Red Cell 14.1 Distribution Width Platelet Count 91 L Mean Platelet 11.0 H Volume Immature 0.400 Granulocytes % Neutrophils % 90.6 H Lymphocytes % 4.9 L Monocytes % 4.0 Eosinophils % 0.0 Basophils % 0.1 Nucleated Red 0.0 Blood Cells % Immature 0.030 Granulocytes # Neutrophils # 7.0 Lymphocytes # 0.4 L Monocytes # 0.3 Eosinophils # 0.0 Basophils # 0.0 Nucleated Red 0.0 Blood Cells # Sodium Level 139 Potassium Level 4.7 Chloride Level 92 L Carbon Dioxide 36 H Level Anion Gap 11 Blood Urea 31 H Nitrogen Creatinine 4.52 H Est Glomerular 10 L Filtrat Rate mL/min Glucose Level 109 Lactic Acid 1.5 Level Calcium Level 9.1 Phosphorus Level 4.1 Magnesium Level 2.2 Troponin I 0.035 Test 12/07/18 20:24 12/07/18 20:56 12/07/18 22:30 12/08/18 00:11 Bedside Glucose 92 91 Prothrombin Time 19.0 H Prothrombin Time 1.5 Ratio INR 1.58 International Normalized Ratio Activated 37.9 H Partial Thrombop last Time Fibrinogen 334.0 # Amylase Level 40 Lipase 14 L White Blood 7.4 Count Red Blood Count 3.18 L Hemoglobin 9.7 L Hematocrit 30.1 L Mean Corpuscular 94.7 Volume Mean Corpuscular 30.5 Hemoglobin Mean Corpuscular 32.2 Hemoglobin Irasema nt Red Cell 14.2 Distribution Width Platelet Count 91 L Mean Platelet 10.9 H Volume Immature 0.400 Granulocytes % Neutrophils % 88.1 H Lymphocytes % 6.9 L Monocytes % 4.2 Eosinophils % 0.1 Basophils % 0.3 Nucleated Red 0.0 Blood Cells % Immature 0.030 Granulocytes # Neutrophils # 6.5 Lymphocytes # 0.5 L Monocytes # 0.3 Eosinophils # 0.0 Basophils # 0.0 Nucleated Red 0.0 Blood Cells # Sodium Level 139 Potassium Level 4.5 Chloride Level 92 L Carbon Dioxide 34 H Level Anion Gap 13 Blood Urea 32 H Nitrogen Creatinine 4.69 H Est Glomerular 10 L Filtrat Rate mL/min Glucose Level 111 Lactic Acid 1.9 Level Calcium Level 9.2 Phosphorus Level 4.0 Magnesium Level 2.1 Troponin I 0.050 Test 12/08/18 00:13 12/08/18 00:23 12/08/18 02:30 12/08/18 04:31 Blood Gas Blood arterial Specimen Source Arterial Blood 12/08/2018 12:15:5 Date Drawn 8 AM Arterial Blood 7.466 H pH (Temp corrected) Arterial Blood 44.3 pCO2 (Temp correct) Arterial Blood 103.5 H pO2 (Temp corrected) Arterial Blood 32.0 H HCO3 Arterial Blood 6.7 H Base Excess Arterial Blood 97.9 Oxygen Saturatio n Stan[place]law Test ACCEPTAB Arterial Blood Left Radial Gas Puncture Site Arterial 0.6 Blood Carboxyhem oglobin Arterial Blood 0 Methemoglobin Blood Gas A-a O2 133.2 H Differential Oxyhemoglobin 97.3 Percent Blood Gas 34.5 Temperature Blood Gas 12.0 Respiration Rate Blood Gas Actual 13 Respiration Rate Blood Gas VENT - AC Modality FiO2 40.0 Blood Gas Tidal 400.0 Volume Blood Gas Low 5.0 PEEP Setting Blood Gas 32.0 Inspiratory Pressure Blood Gas MM Notified Whom Blood Gas 12/08/2018 12:25:3 Notified Time 2 AM Bedside Glucose 106 130 120 Test 12/08/18 05:00 12/08/18 05:30 12/08/18 06:29 12/08/18 08:00 Blood Gas Blood arterial Specimen Source Arterial Blood 12/08/2018 4:40:00 Date Drawn AM Arterial Blood 7.462 H pH (Temp corrected) Arterial Blood 46.5 H pCO2 (Temp correct) Arterial Blood 65.6 L pO2 (Temp corrected) Arterial Blood 33.1 H HCO3 Arterial Blood 7.8 H Base Excess Arterial Blood 93.4 L Oxygen Saturatio n Stanislaw Test ACCEPTAB Arterial Blood Left Radial Gas Puncture Site Arterial 0.8 Blood Carboxyhem oglobin Arterial Blood 0.3 Methemoglobin Blood Gas A-a O2 95.1 H Differential Oxyhemoglobin 92.4 L Percent Blood Gas 35.0 Temperature Blood Gas 12.0 Respiration Rate Blood Gas Actual 12 Respiration Rate Blood Gas VENT - AC Modality FiO2 30.0 Blood Gas Tidal 400.0 Volume Blood Gas Low 5.0 PEEP Setting Blood Gas 23.0 Inspiratory Pressure Blood Gas MA Notified Whom Blood Gas 12/08/2018 5:15:00 Notified Time AM White Blood 6.2 Count Red Blood Count 2.88 L Hemoglobin 8.6 L Hematocrit 27.2 L Mean Corpuscular 94.4 Volume Mean Corpuscular 29.9 Hemoglobin Mean Corpuscular 31.6 L Hemoglobin Irasema nt Red Cell 14.3 Distribution Width Platelet Count 80 L Mean Platelet 11.9 H Volume Immature 0.800 H Granulocytes % Neutrophils % 86.9 H Lymphocytes % 6.9 L Monocytes % 4.8 Eosinophils % 0.3 Basophils % 0.3 Nucleated Red 0.0 Blood Cells % Immature 0.050 H Granulocytes # Neutrophils # 5.4 Lymphocytes # 0.4 L Monocytes # 0.3 Eosinophils # 0.0 Basophils # 0.0 Nucleated Red 0.0 Blood Cells # Sodium Level 138 Potassium Level 4.5 Chloride Level 95 L Carbon Dioxide 34 H Level Anion Gap 9 Blood Urea 31 H Nitrogen Creatinine 4.99 H Est Glomerular 9 L Filtrat Rate mL/min Glucose Level 127 Lactic Acid 1.3 Level Calcium Level 9.2 Phosphorus Level 3.9 Magnesium Level 2.1 Troponin I 0.075 Random 33.3 Vancomycin Level Bedside Glucose 140 134 Test 12/08/18 09:00 12/08/18 09:45 12/08/18 10:49 12/08/18 11:35 Amylase Level 48 Lipase 22 L Prothrombin Time 18.4 H Prothrombin Time 1.4 Ratio INR 1.52 International Normalized Ratio Activated 36.7 H Partial Thrombop last Time Fibrinogen 346.0 Bedside Glucose 130 Urine Color ANNA Urine Clarity TURBID A Urine pH 8.0 Urine Specific 1.015 [place] Urine Ketones NEGATIVE Urine Nitrite NEGATIVE Urine Bilirubin NEGATIVE Urine NEGATIVE Urobilinogen Urine Leukocyte NEGATIVE Esterase Urine > 182 H Microscopic RBC Urine 126 H Microscopic WBC Urine Mucus FEW A Urine Hemoglobin 3+ H Urine Glucose 1+ H Urine Total 3+ H Protein Test 12/08/18 12:50 Bedside Glucose 111 Medications Medication Current Medications Ondansetron HCl (Zofran Inj) 4 mg Q6H PRN IV NAUSEA AND/OR VOMITING; Start 12/06/18 at 09:30 Albuterol (Proventil 0.083% (Neb)) 2.5 mg Q2H RESP THERAPY PRN NEB SHORTNESS OF BREATH; Start 12/06/18 at 09:30 Acetaminophen (Tylenol Tab) 650 mg Q6H PRN PO PAIN LEVEL 1-3 OR FEVER; Start 12/06/18 at 09:30 Docusate Sodium (Colace) 100 mg Q12H PRN PO CONSTIPATION; Start 12/06/18 at 09:30 Magnesium Hydroxide (Milk Of Mag) 30 ml DAILY PRN PO CONSTIPATION; Start 12/06/18 at 09:30 Aspirin (Aspirin) 81 mg DAILY PO ; Start 12/06/18 at 10:30 Brimonidine Tartrate (Alphagan 0.2%) 1 drop DAILY BOTH EYES Last administered on 12/08/18at 08:08; Admin Dose 1 DROP; Start 12/06/18 at 11:00 Calcium Acetate (Phoslo) 667 mg WITH MEALS PO ; Start 12/06/18 at 12:00 Docusate Sodium (Colace) 200 mg DAILY PO ; Start 12/06/18 at 10:30; Status Hold Lactulose (Enulose) 20 gm BID PO ; Start 12/06/18 at 21:00 Montelukast Sodium (Singulair) 10 mg HS PO ; Start 12/06/18 at 21:00; Status Hold Multivit/Ca Carb/ B Cmplx/FA/Prenat (Mariaelena-Rosas) 1 tab DAILY PO ; Start 12/06/18 at 10:30 Miscellaneous Information 1 ea NOTE XX ; Start 12/06/18 at 10:30 Norepinephrine 250 ml @ 1.875 mls/ hr TITRATE IV Last administered on 12/07/18 13:25; Admin Dose 56.25 MLS/HR; Start 12/06/18 at 13:00 Atropine Sulfate (Atropine (Syringe)) 1 mg PRN PRN IV prn Last administered on 12/06/18 16:49; Admin Dose 1 MG; Start 12/06/18 at 16:00 Propofol 100 ml @ 3.045 mls/ hr Q12H IV Last administered on 12/07/18 02:24; Admin Dose 24.36 MLS/HR; Start 12/06/18 at 16:30 Midazolam HCl 50 ml @ 1 mls/hr TITRATE IV Last administered on 12/08/18 15:46; Admin Dose 4 MLS/HR; Start 12/06/18 at 16:30 Vancomycin HCl (Vanco Iv Per Pharmacy) VANCOMYCIN PER PHARMACY PER PROTOCOL XX ; Start 12/06/18 at 17:30 Cefepime HCl 50 ml @ 100 mls/hr Q24H IVPB Last administered on 12/07/18 20:19; Admin Dose 100 MLS/HR; Start 12/06/18 at 21:00 Levetiracetam 100 ml @ 400 mls/hr Q12 IVPB Last administered on 12/08/18 08:08; Admin Dose 400 MLS/HR; Start 12/06/18 at 21:00 Dopamine HCl/ Dextrose 250 ml @ 7.613 mls/ hr TITRATE IV Last administered on 12/08/18 05:52; Admin Dose 15.225 MLS/HR; Start 12/06/18 at 17:30 Acetaminophen (Tylenol Supp) 650 mg Q4H PRN ND TEMP > 37C; Start 12/06/18 at 18:30 Acetaminophen (Tylenol Liquid) 650 mg Q4H PRN PO TEMP > 37C; Start 12/06/18 at 18:30 Acetaminophen (Tylenol Supp) 500 mg Q6H ND Last administered on 12/08/18 11:39; Admin Dose 500 MG; Start 12/07/18 at 18:30 Acetaminophen (Tylenol Liquid) 500 mg Q6H PO Last administered on 12/08/18 11:39; Admin Dose 500 MG; Start 12/07/18 at 18:30 Meperidine HCl (Demerol) 12.5 mg Q4H PRN IV POST OPERATIVE SHIVERING; Start 12/06/18 at 18:30 Meperidine HCl (Demerol) 25 mg Q4H PRN IV POST OPERATIVE SHIVERING; Start 12/06/18 at 18:30 Eye Lubricant (Akwa Oint) 1 applic Q6 BOTH EYES Last administered on 12/08/18 11:38; Admin Dose 1 APPLIC; Start 12/07/18 at 00:00 Eye Lubricant (Artificial Tears Oph) 2 drop Q6 BOTH EYES Last administered on 12/08/18 11:37; Admin Dose 2 DROP; Start 12/07/18 at 00:00 Magnesium Sulfate 50 ml @ 25 mls/hr PRN PRN IVPB IV PROTOCOL; Start 12/06/18 at 20:30 Potassium Chloride 50 ml @ 25 mls/hr PRN PRN IVPB IV PROTOCOL Last administered on 12/07/18 08:33; Admin Dose 25 MLS/HR; Start 12/06/18 at 20:30 Heparin Sodium (Porcine) (Heparin (1000 Units/ml)) 4,000 unit AFTER DIALYSIS CATHETER ; Start 12/06/18 at 22:00 Albumin Human 100 ml @ 100 mls/hr WITH DIALYSIS PRN IV SBP <90 DURING D IALYSIS; Start 12/06/18 at 22:00 Sodium Chloride (NS) -To prime the dialy... DIRECTED FOR HD PRN IV HD; Start 12/06/18 at 22:00 Phenytoin 200 mg/ Sodium Chloride 54 ml @ 112 mls/hr AM IV Last administered on 12/08/18 09:13; Admin Dose 112 MLS/HR; Start 12/07/18 at 09:00 Phenytoin 200 mg/ Sodium Chloride 54 ml @ 112 mls/hr PC LUNCH IV Last administered on 12/08/18 12:49; Admin Dose 112 MLS/HR; Start 12/07/18 at 12:30 Phenytoin 300 mg/ Sodium Chloride 56 ml @ 112 mls/hr 2100 IV Last administered on 12/07/18at 21:12; Admin Dose 112 MLS/HR; Start 12/07/18 at 21:00 Pantoprazole (Protonix Iv) 40 mg DAILY@06 IV Last administered on 12/08/18at 05:41; Admin Dose 40 MG; Start 12/07/18 at 06:00 Fentanyl 100 ml @ 2.5 mls/hr TITRATE IV Last administered on 12/08/18at 06:27; Admin Dose 2.5 MLS/HR; Start 12/08/18 at 06:30 Diagnostic Test (Pha) (Accu-Chek) 1 ea 02 XX ; Start 12/09/18 at 02:00 Insulin Aspart (Novolog Insulin Pen) NOVOLOG *MILD* ALGORI... Q4 SC ; Start 12/08/18 at 13:00 Miscellaneous Information 1 ea NOTE XX ; Start 12/08/18 at 11:30 Glucose (Glutose) 15 gm Q15M PRN PO DECREASED GLUCOSE; Start 12/08/18 at 11:30 Glucose (Glutose) 22.5 gm Q15M PRN PO DECREASED GLUCOSE; Start 12/08/18 at 11:30 Dextrose (D50w Syringe) 25 ml Q15M PRN IV DECREASED GLUCOSE; Start 12/08/18 at 11:30 Dextrose (D50w Syringe) 50 ml Q15M PRN IV DECREASED GLUCOSE; Start 12/08/18 at 11:30 Glucagon (Glucagen) 1 mg Q15M PRN IM DECREASED GLUCOSE; Start 12/08/18 at 11:30 Glucose (Glutose) 15 gm Q15M PRN BUCCAL DECREASED GLUCOSE; Start 12/08/18 at 11:30 LAZ MELGAR MD Dec 08, 2018 16:08
[2018-12-08] MEDS: ACETAMINOPHEN 325 MG SUPP PR SCH (19:02)
[2018-12-08] MEDS: PHENYTOIN 300 MG in SOD CHLORIDE 0.9% 50 ML IV SCH (20:42)
[2018-12-08] MEDS: CEFEPIME 1GM/50 ML (PMX) 50 ML IVPB SCH (21:18)
[2018-12-09] VITALS (97 sets, daily range): BP systolic 97–148; BP diastolic 51–93; PULSE 73–83; RESP 12–33
[2018-12-09] MEDS: ACETAMINOPHEN 325 MG SUPP PR SCH ×2 (00:18→05:58)
[2018-12-09] MEDS: ACETAMINOPHEN 650MG/20.3ML CUP PO SCH ×2 (00:18→05:57)
[2018-12-09] MEDS: INSULIN ASPART [NOVOLOG] 3 ML PEN SC SCH ×6 (00:18→21:00)
[2018-12-09] MEDS: ARTIFICIAL TEARS 15 ML OPH BOTH EYES SCH ×5 (00:19→23:57)
[2018-12-09] MEDS: OCULAR LUBRICANT 3.5 GM OPH OINT BOTH EYES SCH ×5 (00:19→23:58)
[2018-12-09] MEDS: ACCU-CHEK XX SCH (01:41)
[2018-12-09] MEDS: DOPamine-D5W 1.6 MG/ML 250 ML IV SCH (03:03)
[2018-12-09] MEDS: PROPOFOL 100 ML IV SCH ×2 (03:44→16:30)
[2018-12-09] MEDS: MIDAZOLAM (DRIP) 50 mg/50 mL 50 ML IV SCH (05:09)
[2018-12-09] MEDS: PANTOPRAZOLE 40 MG INJ IV SCH (05:09)
[2018-12-09] MEDS: CALCIUM ACETATE 667 MG CAP PO SCH ×3 (07:35→17:12)
--- NOTE | 2018-12-09 09:21 | CONS ---
Assessment/Plan Assessment/Plan Assessment/Plan (Daily) Chest x-ray was reviewed from today which is showing bilateral pneumonia with improvement on left side. Ventilator setting; AC of 12, tidal volume 400, PEEP of 5, 30% FiO2. Patient is currently on Versed 4 mg/h, fentanyl 15 mics per hour. Dopamine 3 mics per kilogram per minute. Assessment and recommendations; 1. Patient status post cardiac arrest status post hypothermia protocol. 2. Bilateral pneumonia with interval radiological improvement. 3. Chronic renal failure, on hemodialysis. 4. History of 40s bacteremia. 5. History of diabetes. 6. History of seizures. 7. Anemia and thrombocytopenia. Continue current supportive care. Stop sedation to assess mental status. Patient currently getting hemodialyzed at bedside. Obtain follow-up chest x-ray 24 hours. Further recommendations once patient is off sedation. I did have a detailed discussion with the patient's sister at bedside answered all her questions. 35 minutes of critical care time was spent evaluating the patient. Consultation Date/Type/Reason Admit Date/Time Dec 06, 2018 at 12:45 Initial Consult Date 12/06/18 Type of Consult Pulmonary/critical care Requesting Provider: BEAN BEST MD Date/Time of Note DATE: 12/09/18 TIME: 09:17 24 HR Interval Summary Free Text/Dictation Patient's condition is critical. Patient is off hypothermia protocol. Patient has remained hemodynamically mildly unstable, still requiring low-dose dopamine drip. General exam; young female, orally intubated, sedated, currently in no distress. Exam/Review of Systems Exam Vitals Vital Signs Date Temp Pulse Resp B/P (MAP) Pulse Ox O2 O2 Flow FiO2 Time Delivery Rate 12/09/18 79 16 100 30 08:50 12/09/18 128/62 Mechanical 07:21 (84) Ventilator 12/09/18 98.6 00:00 12/06/18 4.0 11:00 Intake and Output 12/08/18 12/08/18 12/09/18 1515:00 23:00 07:00 IntakeIntake Total 336.825 ml 359.725 ml 125.545 ml OutputOutput Total 200 ml BalanceBalance 336.825 ml 359.725 ml -74.455 ml Exam H EENT exam; supple neck, positive JVD. No lymphadenopathy. Midline trachea. No thyromegaly. Orally intubated. No neck masses. Patient has fair dentition. Chest exam; diminished but clear breath sounds. S1-S2 audible, no murmurs. Regular rhythm. Abdomen exam; protuberant. No organomegaly. Bowel sounds audible. Extremity exam; no peripheral edema. THREE KNIFE TRIMMER exam; patient is sedated. Results Result Diagram: 12/09/18 0500 12/09/18 0500 Results 24hrs Laboratory Tests Test 12/08/18 09:45 12/08/18 10:49 12/08/18 11:35 12/08/18 12:50 Prothrombin Time 18.4 H Prothrombin Time Ratio 1.4 INR International 1.52 Normalized Ratio Activated 36.7 H Partial Thromboplast Time Fibrinogen 346.0 Bedside Glucose 130 111 Urine Color ANNA Urine Clarity TURBID A Urine pH 8.0 Urine Specific [place] 1.015 Urine Ketones NEGATIVE Urine Nitrite NEGATIVE Urine Bilirubin NEGATIVE Urine Urobilinogen NEGATIVE Urine Leukocyte Esterase NEGATIVE Urine Microscopic RBC > 182 H Urine Microscopic WBC 126 H Urine Mucus FEW A Urine Hemoglobin 3+ H Urine Glucose 1+ H Urine Total Protein 3+ H Test 12/08/18 17:28 12/08/18 19:00 12/08/18 20:41 12/09/18 00:17 Bedside Glucose 128 108 126 Hemoglobin 8.4 L Hematocrit 27.2 L Absolute Reticulocyte 0.076 Count Percent Reticulocyte 2.7 H Count Iron Level 62 Total Iron Binding 175 L Capacity Percent Iron Saturation 35 Ferritin 2450.0 H Test 12/09/18 04:52 12/09/18 05:00 Bedside Glucose 122 White Blood Count 7.8 # Red Blood Count 2.71 L Hemoglobin 8.2 L Hematocrit 26.8 L Mean Corpuscular Volume 98.9 Mean Corpuscular 30.3 Hemoglobin Mean Corpuscular 30.6 L Hemoglobin Concent Red Cell Distribution 14.7 H Width Platelet Count 101 #L Mean Platelet Volume 11.7 H Immature Granulocytes % 0.600 H Neutrophils % 79.8 H Lymphocytes % 11.9 L Monocytes % 6.8 Eosinophils % 0.6 Basophils % 0.3 Nucleated Red Blood 0.5 H Cells % Immature Granulocytes # 0.050 H Neutrophils # 6.3 Lymphocytes # 0.9 Monocytes # 0.5 Eosinophils # 0.1 Basophils # 0.0 Nucleated Red Blood 0.0 Cells # Sodium Level 140 Potassium Level 4.9 Chloride Level 92 L Carbon Dioxide Level 31 Anion Gap 17 #H Blood Urea Nitrogen 37 H Creatinine 6.11 H Est Glomerular Filtrat 7 L Rate mL/min Glucose Level 122 Calcium Level 9.2 Phosphorus Level 5.0 H Magnesium Level 2.3 Hepatitis B Surface NEGATIVE Antigen Medications Medication Current Medications Ondansetron HCl (Zofran Inj) 4 mg Q6H PRN IV NAUSEA AND/OR VOMITING; Start 12/06/18 at 09:30 Albuterol (Proventil 0.083% (Neb)) 2.5 mg Q2H RESP THERAPY PRN NEB SHORTNESS OF BREATH; Start 12/06/18 at 09:30 Acetaminophen (Tylenol Tab) 650 mg Q6H PRN PO PAIN LEVEL 1-3 OR FEVER; Start 12/06/18 at 09:30 Docusate Sodium (Colace) 100 mg Q12H PRN PO CONSTIPATION; Start 12/06/18 at 09:30 Magnesium Hydroxide (Milk Of Mag) 30 ml DAILY PRN PO CONSTIPATION; Start 12/06/18 at 09:30 Aspirin (Aspirin) 81 mg DAILY PO ; Start 12/06/18 at 10:30 Brimonidine Tartrate (Alphagan 0.2%) 1 drop DAILY BOTH EYES Last administered on 12/08/18at 08:08; Admin Dose 1 DROP; Start 12/06/18 at 11:00 Calcium Acetate (Phoslo) 667 mg WITH MEALS PO ; Start 12/06/18 at 12:00 Docusate Sodium (Colace) 200 mg DAILY PO ; Start 12/06/18 at 10:30; Status Hold Lactulose (Enulose) 20 gm BID PO ; Start 12/06/18 at 21:00 Montelukast Sodium (Singulair) 10 mg HS PO ; Start 12/06/18 at 21:00; Status Hold Multivit/Ca Carb/ B Cmplx/FA/Prenat (Mariaelena-Rosas) 1 tab DAILY PO ; Start 12/06/18 at 10:30 Norepinephrine 250 ml @ 1.875 mls/ hr TITRATE IV Last administered on 12/07/18at 13:25; Admin Dose 56.25 MLS/HR; Start 12/06/18 at 13:00 Atropine Sulfate (Atropine (Syringe)) 1 mg PRN PRN IV prn Last administered on 12/06/18at 16:49; Admin Dose 1 MG; Start 12/06/18 at 16:00 Propofol 100 ml @ 3.045 mls/ hr Q12H IV Last administered on 12/07/18 02:24; Admin Dose 24.36 MLS/HR; Start 12/06/18 at 16:30 Midazolam HCl 50 ml @ 1 mls/hr TITRATE IV Last administered on 12/09/18 05:09; Admin Dose 4 MLS/HR; Start 12/06/18 at 16:30 Vancomycin HCl (Vanco Iv Per Pharmacy) VANCOMYCIN PER PHARMACY PER PROTOCOL XX ; Start 12/06/18 at 17:30 Cefepime HCl 50 ml @ 100 mls/hr Q24H IVPB Last administered on 12/08/18 21:18; Admin Dose 100 MLS/HR; Start 12/06/18 at 21:00 Levetiracetam 100 ml @ 400 mls/hr Q12 IVPB Last administered on 12/08/18 20:42; Admin Dose 400 MLS/HR; Start 12/06/18 at 21:00 Dopamine HCl/ Dextrose 250 ml @ 7.613 mls/ hr TITRATE IV Last administered on 12/09/18 03:03; Admin Dose 11.419 MLS/HR; Start 12/06/18 at 17:30 Acetaminophen (Tylenol Supp) 650 mg Q4H PRN [place] TEMP > 37C; Start 12/06/18 at 18:30 Acetaminophen (Tylenol Liquid) 650 mg Q4H PRN PO TEMP > 37C; Start 12/06/18 at 18:30 Meperidine HCl (Demerol) 12.5 mg Q4H PRN IV POST OPERATIVE SHIVERING; Start 12/06/18 at 18:30 Meperidine HCl (Demerol) 25 mg Q4H PRN IV POST OPERATIVE SHIVERING; Start 12/06/18 at 18:30 Eye Lubricant (Akwa Oint) 1 applic Q6 BOTH EYES Last administered on 12/09/18 05:09; Admin Dose 1 APPLIC; Start 12/07/18 at 00:00 Eye Lubricant (Artificial Tears Oph) 2 drop Q6 BOTH EYES Last administered on 12/09/18 05:09; Admin Dose 2 DROP; Start 12/07/18 at 00:00 Magnesium Sulfate 50 ml @ 25 mls/hr PRN PRN IVPB IV PROTOCOL; Start 12/06/18 at 20:30 Potassium Chloride 50 ml @ 25 mls/hr PRN PRN IVPB IV PROTOCOL Last administered on 12/07/18at 08:33; Admin Dose 25 MLS/HR; Start 12/06/18 at 20:30 Heparin Sodium (Porcine) (Heparin (1000 Units/ml)) 4,000 unit AFTER DIALYSIS CATHETER ; Start 12/06/18 at 22:00 Albumin Human 100 ml @ 100 mls/hr WITH DIALYSIS PRN IV SBP <90 DURING DIALYSIS; Start 12/06/18 at 22:00 Sodium Chloride (NS) -To prime the dialy... DIRECTED FOR HD PRN IV HD; Start 12/06/18 at 22:00 Phenytoin 200 mg/ Sodium Chloride 54 ml @ 112 mls/hr AM IV Last administered on 12/08/18at 09:13; Admin Dose 112 MLS/HR; Start 12/07/18 at 09:00 Phenytoin 200 mg/ Sodium Chloride 54 ml @ 112 mls/hr PC LUNCH IV Last administered on 12/08/18at 12:49; Admin Dose 112 MLS/HR; Start 12/07/18 at 12:30 Phenytoin 300 mg/ Sodium Chloride 56 ml @ 112 mls/hr 2100 IV Last administered on 12/08/18at 20:42; Admin Dose 112 MLS/HR; Start 12/07/18 at 21:00 Pantoprazole (Protonix Iv) 40 mg DAILY@06 IV Last administered on 12/09/18at 05:09; Admin Dose 40 MG; Start 12/07/18 at 06:00 Fentanyl 100 ml @ 2.5 mls/hr TITRATE IV Last administered on 12/08/18at 06:27; Admin Dose 2.5 MLS/HR; Start 12/08/18 at 06:30 Diagnostic Test (Pha) (Accu-Chek) 1 ea 02 XX ; Start 12/09/18 at 02:00 Insulin Aspart (Novolog Insulin Pen) NOVOLOG *MILD* ALGORI... Q4 SC ; Start 12/08/18 at 13:00 Miscellaneous Information 1 ea NOTE XX ; Start 12/08/18 at 11:30 Glucose (Glutose) 15 gm Q15M PRN PO DECREASED GLUCOSE; Start 12/08/18 at 11:30 Glucose (Glutose) 22.5 gm Q15M PRN PO DECREASED GLUCOSE; Start 12/08/18 at 11:30 Dextrose (D50w Syringe) 25 ml Q15M PRN IV DECREASED GLUCOSE; Start 12/08/18 at 11:30 Dextrose (D50w Syringe) 50 ml Q15M PRN IV DECREASED GLUCOSE; Start 12/08/18 at 11:30 Glucagon (Glucagen) 1 mg Q15M PRN IM DECREASED GLUCOSE; Start 12/08/18 at 11:30 Glucose (Glutose) 15 gm Q15M PRN BUCCAL DECREASED GLUCOSE; Start 12/08/18 at 11:30 DINESH SAVAGE Dec 09, 2018 09:21
--- NOTE | 2018-12-09 10:15 | CONS ---
Assessment/Plan Assessment/Plan Assessment/Plan (Daily) 1. Cardiopulmonary Arrest--initially secondary to NSVT vs. Afib with aberrancy, thereafter course complicated by Torsades with notable QT prolongation. - Currently on Hypothermia protocol 2. ESRD on HD [facility] 3. acute hypoxemic respiratory failure due to cardiac arrest s/p Intubation on ventilator 4. Shock--likely cardiogenic; cannot exclude obstructive though clinical picture not consistent with massive PE. 5. Sepsis--unclear source at this time 6. HTN heart disease 7.. DM Plan: remains intubated, s/p HD today 3 L removed, afebrile, BP stable - will plan for another sessin of HD tomorrow , s/p hypothermia protocol will keep pt on , , saturday schedule while being in hospital will follow up Consultation Date/Type/Reason Admit Date/Time Dec 06, 2018 at 12:45 Initial Consult Date 12/06/18 Type of Consult NEPHROLOGY Requesting Provider: BEAN BEST MD Date/Time of Note DATE: 12/09/18 TIME: 10:15 24 HR Interval Summary Free Text/Dictation remains intubated, s/p HD today 3 L removed, afebrile, BP stable Exam/Review of Systems Exam Vitals Vital Signs Date Temp Pulse Resp B/P (MAP) Pulse Ox O2 O2 Flow FiO2 Time Delivery Rate 12/09/18 81 20 100 30 09:48 12/09/18 128/62 Mechanical 07:21 (84) Ventilator 12/09/18 98.6 00:00 12/06/18 4.0 11:00 Intake and Output 12/08/18 12/08/18 12/09/18 1515:00 23:00 07:00 IntakeIntake Total 336.825 ml 359.725 ml 125.545 ml OutputOutput Total 200 ml BalanceBalance 336.825 ml 359.725 ml -74.455 ml Results Result Diagram: 12/09/18 0500 12/09/18 0500 Results 24hrs Laboratory Tests Test 12/08/18 10:49 12/08/18 11:35 12/08/18 12:50 12/08/18 17:28 Bedside Glucose 130 111 128 Urine Color ANNA Urine Clarity TURBID A Urine pH 8.0 Urine Specific [place] 1.015 Urine Ketones NEGATIVE Urine Nitrite NEGATIVE Urine Bilirubin NEGATIVE Urine Urobilinogen NEGATIVE Urine Leukocyte Esterase NEGATIVE Urine Microscopic RBC > 182 H Urine Microscopic WBC 126 H Urine Mucus FEW A Urine Hemoglobin 3+ H Urine Glucose 1+ H Urine Total Protein 3+ H Test 12/08/18 19:00 12/08/18 20:41 12/09/18 00:17 12/09/18 04:52 Hemoglobin 8.4 L Hematocrit 27.2 L Absolute Reticulocyte 0.076 Count Percent Reticulocyte 2.7 H Count Iron Level 62 Total Iron Binding 175 L Capacity Percent Iron Saturation 35 Ferritin 2450.0 H Bedside Glucose 108 126 122 Test 12/09/18 05:00 12/09/18 09:32 White Blood Count 7.8 # Red Blood Count 2.71 L Hemoglobin 8.2 L Hematocrit 26.8 L Mean Corpuscular Volume 98.9 Mean Corpuscular 30.3 Hemoglobin Mean Corpuscular 30.6 L Hemoglobin Concent Red Cell Distribution 14.7 H Width Platelet Count 101 #L Mean Platelet Volume 11.7 H Immature Granulocytes % 0.600 H Neutrophils % 79.8 H Lymphocytes % 11.9 L Monocytes % 6.8 Eosinophils % 0.6 Basophils % 0.3 Nucleated Red Blood 0.5 H Cells % Immature Granulocytes # 0.050 H Neutrophils # 6.3 Lymphocytes # 0.9 Monocytes # 0.5 Eosinophils # 0.1 Basophils # 0.0 Nucleated Red Blood 0.0 Cells # Sodium Level 140 Potassium Level 4.9 Chloride Level 92 L Carbon Dioxide Level 31 Anion Gap 17 #H Blood Urea Nitrogen 37 H Creatinine 6.11 H Est Glomerular Filtrat 7 L Rate mL/min Glucose Level 122 Calcium Level 9.2 Phosphorus Level 5.0 H Magnesium Level 2.3 Hepatitis B Surface NEGATIVE Antigen Bedside Glucose 99 Medications Medication Current Medications Ondansetron HCl (Zofran Inj) 4 mg Q6H PRN IV NAUSEA AND/OR VOMITING; Start 12/06/18 at 09:30 Albuterol (Proventil 0.083% (Neb)) 2.5 mg Q2H RESP THERAPY PRN NEB SHORTNESS OF BREATH; Start 12/06/18 at 09:30 Acetaminophen (Tylenol Tab) 650 mg Q6H PRN PO PAIN LEVEL 1-3 OR FEVER; Start 12/06/18 at 09:30 Docusate Sodium (Colace) 100 mg Q12H PRN PO CONSTIPATION; Start 12/06/18 at 09:30 Magnesium Hydroxide (Milk Of Mag) 30 ml DAILY PRN PO CONSTIPATION; Start 12/06/18 at 09:30 Aspirin (Aspirin) 81 mg DAILY PO ; Start 12/06/18 at 10:30 Brimonidine Tartrate (Alphagan 0.2%) 1 drop DAILY BOTH EYES Last administered on 12/08/18at 08:08; Admin Dose 1 DROP; Start 12/06/18 at 11:00 Calcium Acetate (Phoslo) 667 mg WITH MEALS PO ; Start 12/06/18 at 12:00 Docusate Sodium (Colace) 200 mg DAILY PO ; Start 12/06/18 at 10:30; Status Hold Lactulose (Enulose) 20 gm BID PO ; Start 12/06/18 at 21:00 Montelukast Sodium (Singulair) 10 mg HS PO ; Start 12/06/18 at 21:00; Status Hold Multivit/Ca Carb/ B Cmplx/FA/Prenat (Mariaelena-Rosas) 1 tab DAILY PO ; Start 12/06/18 at 10:30 Norepinephrine 250 ml @ 1.875 mls/ hr TITRATE IV Last administered on 12/07/18at 13:25; Admin Dose 56.25 MLS/HR; Start 12/06/18 at 13:00 Atropine Sulfate (Atropine (Syringe)) 1 mg PRN PRN IV prn Last administered on 12/06/18at 16:49; Admin Dose 1 MG; Start 12/06/18 at 16:00 Propofol 100 ml @ 3.045 mls/ hr Q12H IV Last administered on 12/07/18at 02:24; Admin Dose 24.36 MLS/HR; Start 12/06/18 at 16:30 Midazolam HCl 50 ml @ 1 mls/hr TITRATE IV Last administered on 12/09/18at 05:09; Admin Dose 4 MLS/HR; Start 12/06/18 at 16:30 Vancomycin HCl (Vanco Iv Per Pharmacy) VANCOMYCIN PER PHARMACY PER PROTOCOL XX ; Start 12/06/18 at 17:30 Cefepime HCl 50 ml @ 100 mls/hr Q24H IVPB Last administered on 12/08/18at 21:18; Admin Dose 100 MLS/HR; Start 12/06/18 at 21:00 Levetiracetam 100 ml @ 400 mls/hr Q12 IVPB Last administered on 12/08/18at 20:42; Admin Dose 400 MLS/HR; Start 12/06/18 at 21:00 Dopamine HCl/ Dextrose 250 ml @ 7.613 mls/ hr TITRATE IV Last administered on 12/09/18at 03:03; Admin Dose 11.419 MLS/HR; Start 12/06/18 at 17:30 Acetaminophen (Tylenol Supp) 650 mg Q4H PRN [place] TEMP > 37C; Start 12/06/18 at 18:30 Acetaminophen (Tylenol Liquid) 650 mg Q4H PRN PO TEMP > 37C; Start 12/06/18 at 18:30 Meperidine HCl (Demerol) 12.5 mg Q4H PRN IV POST OPERATIVE SHIVERING; Start 12/06/18 at 18:30 Meperidine HCl (Demerol) 25 mg Q4H PRN IV POST OPERATIVE SHIVERING; Start 12/06/18 at 18:30 Eye Lubricant (Akwa Oint) 1 applic Q6 BOTH EYES Last administered on 12/09/18at 05:09; Admin Dose 1 APPLIC; Start 12/07/18 at 00:00 Eye Lubricant (Artificial Tears Oph) 2 drop Q6 BOTH EYES Last administered on 12/09/18at 05:09; Admin Dose 2 DROP; Start 12/07/18 at 00:00 Magnesium Sulfate 50 ml @ 25 mls/hr PRN PRN IVPB IV PROTOCOL; Start 12/06/18 at 20:30 Potassium Chloride 50 ml @ 25 mls/hr PRN PRN IVPB IV PROTOCOL Last administered on 12/07/18at 08:33; Admin Dose 25 MLS/HR; Start 12/06/18 at 20:30 Heparin Sodium (Porcine) (Heparin (1000 Units/ml)) 4,000 unit AFTER DIALYSIS CATHETER ; Start 12/06/18 at 22:00 Albumin Human 100 ml @ 100 mls/hr WITH DIALYSIS PRN IV SBP <90 DURING DIALYSIS; Start 12/06/18 at 22:00 Sodium Chloride (NS) -To prime the dialy... DIRECTED FOR HD PRN IV HD; Start 12/06/18 at 22:00 Phenytoin 200 mg/ Sodium Chloride 54 ml @ 112 mls/hr AM IV Last administered on 12/08/18at 09:13; Admin Dose 112 MLS/HR; Start 12/07/18 at 09:00 Phenytoin 200 mg/ Sodium Chloride 54 ml @ 112 mls/hr PC LUNCH IV Last administered on 12/08/18at 12:49; Admin Dose 112 MLS/HR; Start 12/07/18 at 12:30 Phenytoin 300 mg/ Sodium Chloride 56 ml @ 112 mls/hr 2100 IV Last administered on 12/08/18at 20:42; Admin Dose 112 MLS/HR; Start 12/07/18 at 21:00 Pantoprazole (Protonix Iv) 40 mg DAILY@06 IV Last administered on 12/09/18at 05:09; Admin Dose 40 MG; Start 12/07/18 at 06:00 Fentanyl 100 ml @ 2.5 mls/hr TITRATE IV Last administered on 12/08/18at 06:27; Admin Dose 2.5 MLS/HR; Start 12/08/18 at 06:30 Diagnostic Test (Pha) (Accu-Chek) 1 ea 02 XX ; Start 12/09/18 at 02:00 Insulin Aspart (Novolog Insulin Pen) NOVOLOG *MILD* ALGORI... Q4 SC ; Start 12/08/18 at 13:00 Miscellaneous Information 1 ea NOTE XX ; Start 12/08/18 at 11:30 Glucose (Glutose) 15 gm Q15M PRN PO DECREASED GLUCOSE; Start 12/08/18 at 11:30 Glucose (Glutose) 22.5 gm Q15M PRN PO DECREASED GLUCOSE; Start 12/08/18 at 11:30 Dextrose (D50w Syringe) 25 ml Q15M PRN IV DECREASED GLUCOSE; Start 12/08/18 at 11:30 Dextrose (D50w Syringe) 50 ml Q15M PRN IV DECREASED GLUCOSE; Start 12/08/18 at 1 1:30 Glucagon (Glucagen) 1 mg Q15M PRN IM DECREASED GLUCOSE; Start 12/08/18 at 11:30 Glucose (Glutose) 15 gm Q15M PRN BUCCAL DECREASED GLUCOSE; Start 12/08/18 at 11:30 LAZ MELGAR MD Dec 09, 2018 10:15
[2018-12-09] MEDS: MULTIVIT/CA CARB/B CMPLX/FA TAB PO SCH (10:54)
[2018-12-09] MEDS: PHENYTOIN IV SCH ×2 (10:54→13:06)
[2018-12-09] MEDS: ASPIRIN 81 MG TAB PO SCH (10:54)
[2018-12-09] MEDS: SOD CHLORIDE 0.9% IV SCH ×2 (10:54→13:06)
[2018-12-09] MEDS: BRIMONIDINE 0.2% 5 ML BTL BOTH EYES SCH (10:55)
[2018-12-09] MEDS: LACTULOSE 30ML CUP PO SCH ×2 (10:55→21:10)
[2018-12-09] MEDS: LEVETIRACETAM 500 MG (PMX) 100 ML IVPB SCH ×2 (11:10→21:10)
--- NOTE | 2018-12-09 14:30 | CONS ---
Assessment/Plan Assessment/Plan Hospital Course (Demo Recall) Noncommunicative sedated in no distress. Family at bedside. WBC 7.8 platelets 101 neutrophils 79.8 Indwelling: Upper extremity AV fistula, endotracheal tube, orogastric tube, left IJ central lines, femoral triple-lumen catheter Microbiology: Blood culture on December 06 grew oxacillin sensitive staph aureus, repeat blood cultures negative, urine culture negative Chest x-ray this morning revealed improved aeration of the left lung Antimicrobials: Vancomycin cefepime Physical examination: Obese chronically ill-appearing middle-aged woman who is noncommunicative intubated in no distress. Head atraumatic normocephalic neck is obese chest rise symmetrical breath sounds diminished bases heart S1-S2 abdomen obese soft bowel sounds hypoactive extremities with trace edema Assessment: 1. Severe sepsis status post shock 2. Bilateral pneumonia 3. Oxacillin sensitive staph aureus bacteremia 4. Status post cardiac arrest, status post hypothermia protocol 5. Diabetes 6. Seizure disorder 7. End-stage renal disease, hemodialysis dependent 8. Cardiomyopathy with ejection fraction of 35% Plan: The patient is stable off pressors, status post hypothermia protocol, repeat blood cultures negative, no vegetations per 2D echo, continue antibiotics vent support per pulmonary, cardiology and renal recommendations Consultation Date/Type/Reason Admit Date/Time Dec 06, 2018 at 12:45 Initial Consult Date 12/06/18 Type of Consult id Requesting Provider: BEAN BEST MD Date/Time of Note DATE: 12/09/18 TIME: 14:30 Exam/Review of Systems Exam Vitals Vital Signs Date Temp Pulse Resp B/P (MAP) Pulse Ox O2 O2 Flow FiO2 Time Delivery Rate 12/09/18 76 20 131/69 97 Mechanical 13:30 (89) Ventilator 12/09/18 98.9 12:00 12/09/18 30 12:00 12/06/18 4.0 11:00 Intake and Output 12/08/18 12/08/18 12/09/18 1515:00 23:00 07:00 IntakeIntake Total 336.825 ml 359.725 ml 125.545 ml OutputOutput Total 200 ml BalanceBalance 336.825 ml 359.725 ml -74.455 ml Results Result Diagram: 12/09/18 0500 12/09/18 0500 Results 24hrs Laboratory Tests Test 12/08/18 17:28 12/08/18 19:00 12/08/18 20:41 12/09/18 00:17 Bedside Glucose 128 108 126 Hemoglobin 8.4 L Hematocrit 27.2 L Absolute Reticulocyte 0.076 Count Percent Reticulocyte 2.7 H Count Iron Level 62 Total Iron Binding 175 L Capacity Percent Iron Saturation 35 Ferritin 2450.0 H Test 12/09/18 04:52 12/09/18 05:00 12/09/18 09:32 12/09/18 13:14 Bedside Glucose 122 99 109 White Blood Count 7.8 # Red Blood Count 2.71 L Hemoglobin 8.2 L Hematocrit 26.8 L Mean Corpuscular Volume 98.9 Mean Corpuscular 30.3 Hemoglobin Mean Corpuscular 30.6 L Hemoglobin Concent Red Cell Distribution 14.7 H Width Platelet Count 101 #L Mean Platelet Volume 11.7 H Immature Granulocytes % 0.600 H Neutrophils % 79.8 H Lymphocytes % 11.9 L Monocytes % 6.8 Eosinophils % 0.6 Basophils % 0.3 Nucleated Red Blood 0.5 H Cells % Immature Granulocytes # 0.050 H Neutrophils # 6.3 Lymphocytes # 0.9 Monocytes # 0.5 Eosinophils # 0.1 Basophils # 0.0 Nucleated Red Blood 0.0 Cells # Sodium Level 140 Potassium Level 4.9 Chloride Level 92 L Carbon Dioxide Level 31 Anion Gap 17 #H Blood Urea Nitrogen 37 H Creatinine 6.11 H Est Glomerular Filtrat 7 L Rate mL/min Glucose Level 122 Calcium Level 9.2 Phosphorus Level 5.0 H Magnesium Level 2.3 Hepatitis B Surface NEGATIVE Antigen Medications Medication Current Medications Ondansetron HCl (Zofran Inj) 4 mg Q6H PRN IV NAUSEA AND/OR VOMITING; Start 12/06/18 at 09:30 Albuterol (Proventil 0.083% (Neb)) 2.5 mg Q2H RESP THERAPY PRN NEB SHORTNESS OF BREATH; Start 12/06/18 at 09:30 Acetaminophen (Tylenol Tab) 650 mg Q6H PRN PO PAIN LEVEL 1-3 OR FEVER; Start 12/06/18 at 09:30 Docusate Sodium (Colace) 100 mg Q12H PRN PO CONSTIPATION; Start 12/06/18 at 09:30 Magnesium Hydroxide (Milk Of Mag) 30 ml DAILY PRN PO CONSTIPATION; Start 12/06/18 at 09:30 Aspirin (Aspirin) 81 mg DAILY PO Last administered on 12/09/18 10:54; Admin Dose 81 MG; Start 12/06/18 at 10:30 Brimonidine Tartrate (Alphagan 0.2%) 1 drop DAILY BOTH EYES Last administered on 12/09/18 10:55; Admin Dose 1 DROP; Start 12/06/18 at 11:00 Calcium Acetate (Phoslo) 667 mg WITH MEALS PO ; Start 12/06/18 at 12:00 Docusate Sodium (Colace) 200 mg DAILY PO ; Start 12/06/18 at 10:30; Status Hold Lactulose (Enulose) 20 gm BID PO Last administered on 12/09/18 10:55; Admin Dose 20 GM; Start 12/06/18 at 21:00 Montelukast Sodium (Singulair) 10 mg HS PO ; Start 12/06/18 at 21:00; Status Hold Multivit/Ca Carb/ B Cmplx/FA/Prenat (Mariaelena-Rosas) 1 tab DAILY PO Last administered on 12/09/18 10:54; Admin Dose 1 TAB; Start 12/06/18 at 10:30 Norepinephrine 250 ml @ 1.875 mls/ hr TITRATE IV Last administered on 12/07/18 13:25; Admin Dose 56.25 MLS/HR; Start 12/06/18 at 13:00 Atropine Sulfate (Atropine (Syringe)) 1 mg PRN PRN IV prn Last administered on 12/06/18 16:49; Admin Dose 1 MG; Start 12/06/18 at 16:00 Propofol 100 ml @ 3.045 mls/ hr Q12H IV Last administered on 12/07/18 02:24; Admin Dose 24.36 MLS/HR; Start 12/06/18 at 16:30 Midazolam HCl 50 ml @ 1 mls/hr TITRATE IV Last administered on 12/09/18 05:09; Admin Dose 4 MLS/HR; Start 12/06/18 at 16:30 Vancomycin HCl (Vanco Iv Per Pharmacy) VANCOMYCIN PER PHARMACY PER PROTOCOL XX ; Start 12/06/18 at 17:30 Cefepime HCl 50 ml @ 100 mls/hr Q24H IVPB Last administered on 12/08/18 21:18; Admin Dose 100 MLS/HR; Start 12/06/18 at 21:00 Levetiracetam 100 ml @ 400 mls/hr Q12 IVPB Last administered on 12/09/18at 11:10; Admin Dose 400 MLS/HR; Start 12/06/18 at 21:00 Dopamine HCl/ Dextrose 250 ml @ 7.613 mls/ hr TITRATE IV Last administered on 12/09/18at 03:03; Admin Dose 11.419 MLS/HR; Start 12/06/18 at 17:30 Acetaminophen (Tylenol Supp) 650 mg Q4H PRN [place] TEMP > 37C; Start 12/06/18 at 18:30 Acetaminophen (Tylenol Liquid) 650 mg Q4H PRN PO TEMP > 37C; Start 12/06/18 at 18:30 Meperidine HCl (Demerol) 12.5 mg Q4H PRN IV POST OPERATIVE SHIVERING; Start 12/06/18 at 18:30 Meperidine HCl (Demerol) 25 mg Q4H PRN IV POST OPERATIVE SHIVERING; Start 12/06/18 at 18:30 Eye Lubricant (Akwa Oint) 1 applic Q6 BOTH EYES Last administered on 12/09/18at 12:00; Admin Dose 1 APPLIC; Start 12/07/18 at 00:00 Eye Lubricant (Artificial Tears Oph) 2 drop Q6 BOTH EYES Last administered on 12/09/18at 13:05; Admin Dose 2 DROP; Start 12/07/18 at 00:00 Magnesium Sulfate 50 ml @ 25 mls/hr PRN PRN IVPB IV PROTOCOL; Start 12/06/18 at 20:30 Potassium Chloride 50 ml @ 25 mls/hr PRN PRN IVPB IV PROTOCOL Last administered on 12/07/18at 08:33; Admin Dose 25 MLS/HR; Start 12/06/18 at 20:30 Heparin Sodium (Porcine) (Heparin (1000 Units/ml)) 4,000 unit AFTER DIALYSIS CATHETER ; Start 12/06/18 at 22:00 Albumin Human 100 ml @ 100 mls/hr WITH DIALYSIS PRN IV SBP <90 DURING DIALYSIS; Start 12/06/18 at 22:00 Sodium Chloride (NS) -To prime the dialy... DIRECTED FOR HD PRN IV HD; Start 12/06/18 at 22:00 Phenytoin 200 mg/ Sodium Chloride 54 ml @ 112 mls/hr AM IV Last administered on 12/09/18at 10:54; Admin Dose 112 MLS/HR; Start 12/07/18 at 09:00 Phenytoin 200 mg/ Sodium Chloride 54 ml @ 112 mls/hr PC LUNCH IV Last administered on 12/09/18at 13:06; Admin Dose 112 MLS/HR; Start 12/07/18 at 12:30 Phenytoin 300 mg/ Sodium Chloride 56 ml @ 112 mls/hr 2100 IV Last administered on 12/08/18at 20:42; Admin Dose 112 MLS/HR; Start 12/07/18 at 21:00 Pantoprazole (Protonix Iv) 40 mg DAILY@06 IV Last administered on 12/09/18at 05:09; Admin Dose 40 MG; Start 12/07/18 at 06:00 Fentanyl 100 ml @ 2.5 mls/hr TITRATE IV Last administered on 12/08/18at 06:27; Admin Dose 2.5 MLS/HR; Start 12/08/18 at 06:30 Diagnostic Test (Pha) (Accu-Chek) 1 ea 02 XX ; Start 12/09/18 at 02:00 Insulin Aspart (Novolog Insulin Pen) NOVOLOG *MILD* ALGORI... Q4 SC ; Start 12/08/18 at 13:00 Miscellaneous Information 1 ea NOTE XX ; Start 12/08/18 at 11:30 Glucose (Glutose) 15 gm Q15M PRN PO DECREASED GLUCOSE; Start 12/08/18 at 11:30 Glucose (Glutose) 22.5 gm Q15M PRN PO DECREASED GLUCOSE; Start 12/08/18 at 11:30 Dextrose (D50w Syringe) 25 ml Q15M PRN IV DECREASED GLUCOSE; Start 12/08/18 at 11:30 Dextrose (D50w Syringe) 50 ml Q15M PRN IV DECREASED GLUCOSE; Start 12/08/18 at 11:30 Glucagon (Glucagen) 1 mg Q15M PRN IM DECREASED GLUCOSE; Start 12/08/18 at 11:30 Glucose (Glutose) 15 gm Q15M PRN BUCCAL DECREASED GLUCOSE; Start 12/08/18 at 1 1:30 LEWIS PERALES NP Dec 09, 2018 14:30
--- NOTE | 2018-12-09 15:26 | PN ---
Date/Time of Note Date/Time of Note DATE: 12/09/18 TIME: 15:24 Objective Vitals Vital Signs Date Temp Pulse Resp B/P (MAP) Pulse Ox O2 O2 Flow FiO2 Time Delivery Rate 12/09/18 72 14 100 30 14:31 12/09/18 125/58 Mechanical 14:30 (80) Ventilator 12/09/18 98.9 12:00 12/06/18 4.0 11:00 Intake and Output 12/08/18 12/08/18 12/09/18 1515:00 23:00 07:00 IntakeIntake Total 336.825 ml 359.725 ml 142.464 ml OutputOutput Total 200 ml BalanceBalance 336.825 ml 359.725 ml -57.536 ml Results Result Diagram: 12/09/18 0500 12/09/18 0500 Medications Medications Current Medications Ondansetron HCl (Zofran Inj) 4 mg Q6H PRN IV NAUSEA AND/OR VOMITING; Start 12/06/18 at 09:30 Albuterol (Proventil 0.083% (Neb)) 2.5 mg Q2H RESP THERAPY PRN NEB SHORTNESS OF BREATH; Start 12/06/18 at 09:30 Acetaminophen (Tylenol Tab) 650 mg Q6H PRN PO PAIN LEVEL 1-3 OR FEVER; Start 12/06/18 at 09:30 Docusate Sodium (Colace) 100 mg Q12H PRN PO CONSTIPATION; Start 12/06/18 at 09:30 Magnesium Hydroxide (Milk Of Mag) 30 ml DAILY PRN PO CONSTIPATION; Start 12/06/18 at 09:30 Aspirin (Aspirin) 81 mg DAILY PO Last administered on 12/09/18at 10:54; Admin Dose 81 MG; Start 12/06/18 at 10:30 Brimonidine Tartrate (Alphagan 0.2%) 1 drop DAILY BOTH EYES Last administered on 12/09/18at 10:55; Admin Dose 1 DROP; Start 12/06/18 at 11:00 Calcium Acetate (Phoslo) 667 mg WITH MEALS PO ; Start 12/06/18 at 12:00 Docusate Sodium (Colace) 200 mg DAILY PO ; Start 12/06/18 at 10:30; Status Hold Lactulose (Enulose) 20 gm BID PO Last administered on 12/09/18at 10:55; Admin Dose 20 GM; Start 12/06/18 at 21:00 Montelukast Sodium (Singulair) 10 mg HS PO ; Start 12/06/18 at 21:00; Status Hold Multivit/Ca Carb/ B Cmplx/FA/Prenat (Mariaelena-Rosas) 1 tab DAILY PO Last administered on 12/09/18 10:54; Admin Dose 1 TAB; Start 12/06/18 at 10:30 Norepinephrine 250 ml @ 1.875 mls/ hr TITRATE IV Last administered on 12/07/18 13:25; Admin Dose 56.25 MLS/HR; Start 12/06/18 at 13:00 Atropine Sulfate (Atropine (Syringe)) 1 mg PRN PRN IV prn Last administered on 12/06/18 16:49; Admin Dose 1 MG; Start 12/06/18 at 16:00 Propofol 100 ml @ 3.045 mls/ hr Q12H IV Last administered on 12/07/18 02:24; Admin Dose 24.36 MLS/HR; Start 12/06/18 at 16:30 Midazolam HCl 50 ml @ 1 mls/hr TITRATE IV Last administered on 12/09/18 05:09; Admin Dose 4 MLS/HR; Start 12/06/18 at 16:30 Vancomycin HCl (Vanco Iv Per Pharmacy) VANCOMYCIN PER PHARMACY PER PROTOCOL XX ; Start 12/06/18 at 17:30 Cefepime HCl 50 ml @ 100 mls/hr Q24H IVPB Last administered on 12/08/18 21:18; Admin Dose 100 MLS/HR; Start 12/06/18 at 21:00 Levetiracetam 100 ml @ 400 mls/hr Q12 IVPB Last administered on 12/09/18 11:10; Admin Dose 400 MLS/HR; Start 12/06/18 at 21:00 Dopamine HCl/ Dextrose 250 ml @ 7.613 mls/ hr TITRATE IV Last administered on 12/09/18 03:03; Admin Dose 11.419 MLS/HR; Start 12/06/18 at 17:30 Acetaminophen (Tylenol Supp) 650 mg Q4H PRN [place] TEMP > 37C; Start 12/06/18 at 18:30 Acetaminophen (Tylenol Liquid) 650 mg Q4H PRN PO TEMP > 37C; Start 12/06/18 at 18:30 Meperidine HCl (Demerol) 12.5 mg Q4H PRN IV POST OPERATIVE SHIVERING; Start 12/06/18 at 18:30 Meperidine HCl (Demerol) 25 mg Q4H PRN IV POST OPERATIVE SHIVERING; Start 12/06/18 at 18:30 Eye Lubricant (Akwa Oint) 1 applic Q6 BOTH EYES Last administered on 12/09/18at 12:00; Admin Dose 1 APPLIC; Start 12/07/18 at 00:00 Eye Lubricant (Artificial Tears Oph) 2 drop Q6 BOTH EYES Last administered on 12/09/18 13:05; Admin Dose 2 DROP; Start 12/07/18 at 00:00 Magnesium Sulfate 50 ml @ 25 mls/hr PRN PRN IVPB IV PROTOCOL; Start 12/06/18 at 20:30 Potassium Chloride 50 ml @ 25 mls/hr PRN PRN IVPB IV PROTOCOL Last administered on 12/07/18at 08:33; Admin Dose 25 MLS/HR; Start 12/06/18 at 20:30 Heparin Sodium (Porcine) (Heparin (1000 Units/ml)) 4,000 unit AFTER DIALYSIS CATHETER ; Start 12/06/18 at 22:00 Albumin Human 100 ml @ 100 mls/hr WITH DIALYSIS PRN IV SBP <90 DURING DIALYSIS; Start 12/06/18 at 22:00 Sodium Chloride (NS) -To prime the dialy... DIRECTED FOR HD PRN IV HD; Start 12/06/18 at 22:00 Phenytoin 200 mg/ Sodium Chloride 54 ml @ 112 mls/hr AM IV Last administered on 12/09/18at 10:54; Admin Dose 112 MLS/HR; Start 12/07/18 at 09:00 Phenytoin 200 mg/ Sodium Chloride 54 ml @ 112 mls/hr PC LUNCH IV Last administered on 12/09/18 13:06; Admin Dose 112 MLS/HR; Start 12/07/18 at 12:30 Phenytoin 300 mg/ Sodium Chloride 56 ml @ 112 mls/hr 2100 IV Last administered on 12/08/18at 20:42; Admin Dose 112 MLS/HR; Start 12/07/18 at 21:00 Pantoprazole (Protonix Iv) 40 mg DAILY@06 IV Last administered on 12/09/18at 05:09; Admin Dose 40 MG; Start 12/07/18 at 06:00 Fentanyl 100 ml @ 2.5 mls/hr TITRATE IV Last administered on 12/08/18at 06:27; Admin Dose 2.5 MLS/HR; Start 12/08/18 at 06:30 Diagnostic Test (Pha) (Accu-Chek) 1 ea 02 XX ; Start 12/09/18 at 02:00 Insulin Aspart (Novolog Insulin Pen) NOVOLOG *MILD* ALGORI... Q4 SC ; Start 12/08/18 at 13:00 Miscellaneous Information 1 ea NOTE XX ; Start 12/08/18 at 11:30 Glucose (Glutose) 15 gm Q15M PRN PO DECREASED GLUCOSE; Start 12/08/18 at 11:30 Glucose (Glutose) 22.5 gm Q15M PRN PO DECREASED GLUCOSE; Start 12/08/18 at 11:30 Dextrose (D50w Syringe) 25 ml Q15M PRN IV DECREASED GLUCOSE; Start 12/08/18 at 11:30 Dextrose (D50w Syringe) 50 ml Q15M PRN IV DECREASED GLUCOSE; Start 12/08/18 at 11:30 Glucagon (Glucagen) 1 mg Q15M PRN IM DECREASED GLUCOSE; Start 12/08/18 at 11:30 Glucose (Glutose) 15 gm Q15M PRN BUCCAL DECREASED GLUCOSE; Start 12/08/18 at 11:30 VTE Prophylaxis Risk score (from Ns)>0 risk: 9 SCD applied (from Ns): Yes Lines/Catheters IV Catheter Type: Simpson in Place: Yes Cont'd simpson catheter reason: terminal illness/intractable pain Assessment/Plan Hospital Course Subjective Patient still sedated and intubated Objective Physical exam General: Patient is intubated and sedated Mentation: Patient is intubated and sedate, hypothermia protocol has been completed d Head: Normocephalic atraumatic Eyes: EOMI, pupils mildly reactive to light Neck: Supple, nontender, midline Respiratory: Coarse to auscultation bilaterally Cardiovascular: Tachycardic rate, no obvious murmurs Gastrointestinal: non-tender to palpation, bowel sounds heard. Neurological: Unable to assess due to sedation Skin: No new skin lesions Assessment/Plan 1. S/p Cardiac arrest with ROSC - Patient is currently finished with hypothermia protocol and will be going off sedation and will continue monitoring neurological status - Patient initially with NSVT and given prolonged QT and placement on Amiodarone went into torsades then coded. Patient coded another 3 times total secondary to PEA arrest with ROSC - Cardiology on board and appreciate recommendations. Continue on Dopamine. Will need Cardiac cath if patient recovers - trops remain negative indicating non ischemic etiology for arrest Staph bacteremia -IV antibiotic -Infectious disease consulted 2. ?Arrhythmia, NSVT - Patient has ? afib and may have had afib with aberrancy but initial event was not captured - EKG showing prolonged QT - noted on Coumadin on med rec but INR normal at time of presentation. Will need to touch base with fam vs patient when she recovers on why she takes Coumadin 3. Cardiogenic shock - Continue on Dopamine 4. Sepsis of unknown source - likely aspiration given multiple cardiac arrest episodes. CXR from this am still pending - snider cultures drawn and continue on current broad antibiotics - LA normalized 5. Hypokalemia - replacing 6. DM -Insulin drip changed to sliding scale - A1c noted and uncontrolled - discussed with family need for better glucose control after discharge 7. ESRD on HD - Nephrology,Dr. Reddy, on board and appreciate consultation. T/T/S scheduled 8. h/o CVA - continue current medications 9. HTN - currently requiring pressor support 10. Disposition -Monitor off sedation as tolerated. Assess for neurological recovery - Palliative on board. Family would like patient to remain full code for now >40 minutes of critical care time spent with patient and family at bedside BOZENA PARK Dec 09, 2018 15:26
--- NOTE | 2018-12-09 17:16 | CONS ---
Assessment/Plan Assessment/Plan Hospital Course (Demo Recall) s/p cardiac arrest:First event was torsades in setting of prolonged QT caused by amiodarone. Subsequent PEA events. Trops negative and no ischemic EKG changes. Had a bradycardic arrest as well which may have been metabolic or related to lidocaine. No further arrhythmias and seems to be stabilizing. EF is 35% and there is significant RV dysfunction and likely underlying severe pulm HTN which cannot be assessed accurately by echo. If she recovers she will need a cardiac cath for evaluation. Staph aureus bacteremia so may all have been sepsis related Shock: Septic with bacteremia. Off pressors Staph aureus bacteremia Torsades: due to amiodarone induced prolonged QTc. Now resolved Prolonged QT: due to amiodarone. Improved Cardiomyopathy: EF 35% RV dysfunction: doubt acute PE but maybe long standing pulm HTN NSVT: Unfortunately the tele bed in the ER that she was in did not record arrhythmias. Per ER MD she had 10-12 beats runs. Acute on chronic systolic CHF: EF 35%. Decompensated on exam HTN : BP initially recorded in the 120s, then >200. Now off dopamine ?Paroxysmal afib: Coumadin is on her med list but INR was normal on admission. With h/o stroke, presumably she had afib in the past. ESRD on HD DM CVA with left weakness -antibiotics -hold all BP meds for now -cardiac cath at some point during hospitalization if neurologic recovery Consultation Date/Type/Reason Admit Date/Time Dec 06, 2018 at 12:45 Initial Consult Date 12/06/18 Type of Consult Cardiology Requesting Provider: BEAN BEST MD Date/Time of Note DATE: 12/09/18 TIME: 17:13 24 HR Interval Summary Free Text/Dictation Hemodynamically stable. No events. Exam/Review of Systems Vital Signs Vitals Vital Signs Date Temp Pulse Resp B/P (MAP) Pulse Ox O2 O2 Flow FiO2 Time Delivery Rate 12/09/18 76 20 97/65 (76) 100 Mechanical 16:45 Ventilator 12/09/18 98.7 16:00 12/09/18 30 14:31 12/06/18 4.0 11:00 Intake and Output 12/08/18 12/08/18 12/09/18 1515:00 23:00 07:00 IntakeIntake Total 336.825 ml 359.725 ml 142.464 ml OutputOutput Total 200 ml BalanceBalance 336.825 ml 359.725 ml -57.536 ml Exam Constitutional: No alert ENMT: intubated Neck: supple; No jvd (unable to assess ) Respiratory: No clear to auscultation Cardiovascular: regular rate and rhythm; No edema Gastrointestinal: soft; No distended Neurological: No nl mental status, No nl speech Labs Result Diagram: 12/09/18 0500 12/09/18 0500 Results 24hrs Laboratory Tests Test 12/08/18 17:28 12/08/18 19:00 12/08/18 20:41 12/09/18 00:17 Bedside Glucose 128 108 126 Hemoglobin 8.4 L Hematocrit 27.2 L Absolute Reticulocyte 0.076 Count Percent Reticulocyte 2.7 H Count Iron Level 62 Total Iron Binding 175 L Capacity Percent Iron Saturation 35 Ferritin 2450.0 H Test 12/09/18 04:52 12/09/18 05:00 12/09/18 09:32 12/09/18 13:14 Bedside Glucose 122 99 109 White Blood Count 7.8 # Red Blood Count 2.71 L Hemoglobin 8.2 L Hematocrit 26.8 L Mean Corpuscular Volume 98.9 Mean Corpuscular 30.3 Hemoglobin Mean Corpuscular 30.6 L Hemoglobin Concent Red Cell Distribution 14.7 H Width Platelet Count 101 #L Mean Platelet Volume 11.7 H Immature Granulocytes % 0.600 H Neutrophils % 79.8 H Lymphocytes % 11.9 L Monocytes % 6.8 Eosinophils % 0.6 Basophils % 0.3 Nucleated Red Blood 0.5 H Cells % Immature Granulocytes # 0.050 H Neutrophils # 6.3 Lymphocytes # 0.9 Monocytes # 0.5 Eosinophils # 0.1 Basophils # 0.0 Nucleated Red Blood 0.0 Cells # Sodium Level 140 Potassium Level 4.9 Chloride Level 92 L Carbon Dioxide Level 31 Anion Gap 17 #H Blood Urea Nitrogen 37 H Creatinine 6.11 H Est Glomerular Filtrat 7 L Rate mL/min Glucose Level 122 Calcium Level 9.2 Phosphorus Level 5.0 H Magnesium Level 2.3 Hepatitis B Surface NEGATIVE Antigen Medications Medications Current Medications Ondansetron HCl (Zofran Inj) 4 mg Q6H PRN IV NAUSEA AND/OR VOMITING; Start 12/06/18 at 09:30 Albuterol (Proventil 0.083% (Neb)) 2.5 mg Q2H RESP THERAPY PRN NEB SHORTNESS OF BREATH; Start 12/06/18 at 09:30 Acetaminophen (Tylenol Tab) 650 mg Q6H PRN PO PAIN LEVEL 1-3 OR FEVER; Start 12/06/18 at 09:30 Docusate Sodium (Colace) 100 mg Q12H PRN PO CONSTIPATION; Start 12/06/18 at 09:30 Magnesium Hydroxide (Milk Of Mag) 30 ml DAILY PRN PO CONSTIPATION; Start 12/06/18 at 09:30 Aspirin (Aspirin) 81 mg DAILY PO Last administered on 12/09/18 10:54; Admin Dose 81 MG; Start 12/06/18 at 10:30 Brimonidine Tartrate (Alphagan 0.2%) 1 drop DAILY BOTH EYES Last administered on 12/09/18 10:55; Admin Dose 1 DROP; Start 12/06/18 at 11:00 Calcium Acetate (Phoslo) 667 mg WITH MEALS PO ; Start 12/06/18 at 12:00 Docusate Sodium (Colace) 200 mg DAILY PO ; Start 12/06/18 at 10:30; Status Hold Lactulose (Enulose) 20 gm BID PO Last administered on 12/09/18 10:55; Admin Dose 20 GM; Start 12/06/18 at 21:00 Montelukast Sodium (Singulair) 10 mg HS PO ; Start 12/06/18 at 21:00; Status Hold Multivit/Ca Carb/ B Cmplx/FA/Prenat (Mariaelena-Rosas) 1 tab DAILY PO Last administered on 12/09/18 10:54; Admin Dose 1 TAB; Start 12/06/18 at 10:30 Norepinephrine 250 ml @ 1.875 mls/ hr TITRATE IV Last administered on 12/07/18 13:25; Admin Dose 56.25 MLS/HR; Start 12/06/18 at 13:00 Atropine Sulfate (Atropine (Syringe)) 1 mg PRN PRN IV prn Last administered on 12/06/18 16:49; Admin Dose 1 MG; Start 12/06/18 at 16:00 Propofol 100 ml @ 3.045 mls/ hr Q12H IV Last administered on 12/07/18 02:24; Admin Dose 24.36 MLS/HR; Start 12/06/18 at 16:30 Midazolam HCl 50 ml @ 1 mls/hr TITRATE IV Last administered on 12/09/18 05:09; Admin Dose 4 MLS/HR; Start 12/06/18 at 16:30 Vancomycin HCl (Vanco Iv Per Pharmacy) VANCOMYCIN PER PHARMACY PER PROTOCOL XX ; Start 12/06/18 at 17:30 Cefepime HCl 50 ml @ 100 mls/hr Q24H IVPB Last administered on 12/08/18 21:18; Admin Dose 100 MLS/HR; Start 12/06/18 at 21:00 Levetiracetam 100 ml @ 400 mls/hr Q12 IVPB Last administered on 12/09/18 11:10; Admin Dose 400 MLS/HR; Start 12/06/18 at 21:00 Dopamine HCl/ Dextrose 250 ml @ 7.613 mls/ hr TITRATE IV Last administered on 12/09/18 03:03; Admin Dose 11.419 MLS/HR; Start 12/06/18 at 17:30 Acetaminophen (Tylenol Supp) 650 mg Q4H PRN AL TEMP > 37C; Start 12/06/18 at 18:30 Acetaminophen (Tylenol Liquid) 650 mg Q4H PRN PO TEMP > 37C; Start 12/06/18 at 18:30 Meperidine HCl (Demerol) 12.5 mg Q4H PRN IV POST OPERATIVE SHIVERING; Start 12/06/18 at 18:30 Meperidine HCl (Demerol) 25 mg Q4H PRN IV POST OPERATIVE SHIVERING; Start 12/06/18 at 18:30 Eye Lubricant (Akwa Oint) 1 applic Q6 BOTH EYES Last administered on 12/09/18at 12:00; Admin Dose 1 APPLIC; Start 12/07/18 at 00:00 Eye Lubricant (Artificial Tears Oph) 2 drop Q6 BOTH EYES Last administered on 12/09/18 13:05; Admin Dose 2 DROP; Start 12/07/18 at 00:00 Magnesium Sulfate 50 ml @ 25 mls/hr PRN PRN IVPB IV PROTOCOL; Start 12/06/18 at 20:30 Potassium Chloride 50 ml @ 25 mls/hr PRN PRN IVPB IV PROTOCOL Last administered on 4/7/19at 08:33; Admin Dose 25 MLS/HR; Start 12/06/18 at 20:30 Heparin Sodium (Porcine) (Heparin (1000 Units/ml)) 4,000 unit AFTER DIALYSIS CATHETER ; Start 12/06/18 at 22:00 Albumin Human 100 ml @ 100 mls/hr WITH DIALYSIS PRN IV SBP <90 DURING DIALYSIS; Start 12/06/18 at 22:00 Sodium Chloride (NS) -To prime the dialy... DIRECTED FOR HD PRN IV HD; Start 12/06/18 at 22:00 Phenytoin 200 mg/ Sodium Chloride 54 ml @ 112 mls/hr AM IV Last administered on 12/09/18at 10:54; Admin Dose 112 MLS/HR; Start 12/07/18 at 09:00 Phenytoin 200 mg/ Sodium Chloride 54 ml @ 112 mls/hr PC LUNCH IV Last administered on 12/09/18at 13:06; Admin Dose 112 MLS/HR; Start 12/07/18 at 12:30 Phenytoin 300 mg/ Sodium Chloride 56 ml @ 112 mls/hr 2100 IV Last administered on 12/08/18at 20:42; Admin Dose 112 MLS/HR; Start 12/07/18 at 21:00 Pantoprazole (Protonix Iv) 40 mg DAILY@06 IV Last administered on 12/09/18at 05:09; Admin Dose 40 MG; Start 12/07/18 at 06:00 Fentanyl 100 ml @ 2.5 mls/hr TITRATE IV Last administered on 12/08/18at 06:27; Admin Dose 2.5 MLS/HR; Start 12/08/18 at 06:30 Diagnostic Test (Pha) (Accu-Chek) 1 ea 02 XX ; Start 12/09/18 at 02:00 Insulin Aspart (Novolog Insulin Pen) NOVOLOG *MILD* ALGORI... Q4 SC ; Start 12/08/18 at 13:00 Miscellaneous Information 1 ea NOTE XX ; Start 12/08/18 at 11:30 Glucose (Glutose) 15 gm Q15M PRN PO DECREASED GLUCOSE; Start 12/08/18 at 11:30 Glucose (Glutose) 22.5 gm Q15M PRN PO DECREASED GLUCOSE; Start 12/08/18 at 11:30 Dextrose (D50w Syringe) 25 ml Q15M PRN IV DECREASED GLUCOSE; Start 12/08/18 at 11:30 Dextrose (D50w Syringe) 50 ml Q15M PRN IV DECREASED GLUCOSE; Start 12/08/18 at 11:30 Glucagon (Glucagen) 1 mg Q15M PRN IM DECREASED GLUCOSE; Start 12/08/18 at 11:30 Glucose (Glutose) 15 gm Q15M PRN BUCCAL DECREASED GLUCOSE; Start 12/08/18 at 11:30 Collagenase (Santyl) 1 applic DAILY TOP ; Start 12/10/18 at 09:00; Status JJ MIRELES Dec 09, 2018 17:16
[2018-12-09] MEDS: CEFEPIME 1GM/50 ML (PMX) 50 ML IVPB SCH (21:11)
[2018-12-09] MEDS: PHENYTOIN 300 MG in SOD CHLORIDE 0.9% 50 ML IV SCH (21:11)
[2018-12-10] VITALS (57 sets, daily range): BP systolic 113–152; BP diastolic 50–82; PULSE 71–95; RESP 12–30
[2018-12-10] MEDS: INSULIN ASPART [NOVOLOG] 3 ML PEN SC SCH ×5 (00:01→18:00)
[2018-12-10] MEDS: ACCU-CHEK XX SCH (02:38)
[2018-12-10] MEDS: PROPOFOL 100 ML IV SCH ×2 (04:30→15:39)
[2018-12-10] MEDS: PANTOPRAZOLE 40 MG INJ IV SCH (05:56)
[2018-12-10] MEDS: ARTIFICIAL TEARS 15 ML OPH BOTH EYES SCH ×3 (05:56→18:11)
[2018-12-10] MEDS: OCULAR LUBRICANT 3.5 GM OPH OINT BOTH EYES SCH ×3 (05:57→18:11)
[2018-12-10] MEDS: CALCIUM ACETATE 667 MG CAP PO SCH ×3 (07:35→15:39)
[2018-12-10] MEDS: COLLAGENASE 5 GM (UD JAR) TOP SCH (08:10)
[2018-12-10] MEDS: MULTIVIT/CA CARB/B CMPLX/FA TAB PO SCH (08:38)
[2018-12-10] MEDS: ASPIRIN 81 MG TAB PO SCH (08:38)
[2018-12-10] MEDS: LACTULOSE 30ML CUP PO SCH ×2 (08:38→20:26)
[2018-12-10] MEDS: BRIMONIDINE 0.2% 5 ML BTL BOTH EYES SCH (08:39)
[2018-12-10] MEDS: SOD CHLORIDE 0.9% IV SCH ×2 (08:49→12:18)
[2018-12-10] MEDS: LEVETIRACETAM 500 MG (PMX) 100 ML IVPB SCH ×2 (08:49→20:36)
[2018-12-10] MEDS: PHENYTOIN IV SCH ×2 (08:49→12:18)
--- NOTE | 2018-12-10 09:34 | CONS ---
Assessment/Plan Assessment/Plan Assessment/Plan (Daily) Chest x-ray was reviewed from today which is showing bilateral infiltrative changes more pronounced in right lung with mild pulmonary edema. Ventilator setting; AC of 12, tidal volume 400, PEEP of 5, 30% FiO2. Patient is off sedation, off any pressor support. Assessment and recommendations; 1. Patient status post cardiac arrest status post hypothermia protocol with profound mental unresponsiveness. 2. Chronic renal failure, on hemodialysis. 3. Bilateral pneumonia. 4. Staph aureus bacteremia, most recent blood cultures are negative. 5. Stable seizure disorder. 6. Diabetes. 7. Anemia and severe thrombocytopenia. 8. Interval resolution of hypotension. Continue current supportive care. Hemodialysis per wrapper rewinder. Patient scheduled for another session today. Prognosis is guarded and depends to a significant extent on adequate mental status recovery. 35 minutes of critical care time was spent evaluating the patient. Consultation Date/Type/Reason Admit Date/Time Dec 06, 2018 at 12:45 Initial Consult Date 12/06/18 Type of Consult Pulmonary/critical care Requesting Provider: BEAN BEST MD Date/Time of Note DATE: 12/10/18 TIME: 09:31 24 HR Interval Summary Free Text/Dictation Patient's condition remains critical. Remains unresponsive. Patient however has improved hemodynamically and is now off pressor support. No overt seizure activity reported. General exam; young female, orally intubated, unresponsive, currently in no distress. Exam/Review of Systems Exam Vitals Vital Signs Date Temp Pulse Resp B/P (MAP) Pulse Ox O2 O2 Flow FiO2 Time Delivery Rate 12/10/18 78 23 133/65 96 Mechanical 09:00 (87) Ventilator 12/10/18 98.9 08:00 12/10/18 30 07:50 12/06/18 4.0 11:00 Intake and Output 12/09/18 12/09/18 12/10/18 1515:00 23:00 07:00 IntakeIntake Total 365.507 ml 256 ml 0 ml OutputOutput Total 3400 ml 0 ml 10 ml BalanceBalance -3034.493 ml 256 ml -10 ml Exam H EENT exam; patient has facial edema. Orally intubated. No neck masses. Pupils are midsize. Patient has fair dentition. Chest exam; diminished but clear breath sounds. S1-S2 audible, no murmurs. Regular rhythm. Abdomen exam; soft, protuberant. Bowel sounds audible. No organomegaly felt. Extremity exam; no peripheral edema or clubbing. JOB ANALYSIS MANAGER exam; patient remains profoundly unresponsive. Results Result Diagram: 12/10/18 0426 12/10/18 0426 Results 24hrs Laboratory Tests Test 12/09/18 09:32 12/09/18 13:14 12/09/18 17:20 12/09/18 21:00 Bedside Glucose 99 109 112 108 Test 12/10/18 00:01 12/10/18 02:31 12/10/18 04:00 12/10/18 04:05 Bedside Glucose 100 109 108 Lactate 654 H Dehydrogenase Test 12/10/18 04:26 12/10/18 08:56 White Blood Count 9.7 # Red Blood Count 2.63 L Hemoglobin 7.8 L Hematocrit 26.3 L Mean Corpuscular 100.0 Volume Mean Corpuscular 29.7 Hemoglobin Mean Corpuscular 29.7 L Hemoglobin Concent Red Cell 14.8 H Distribution Width Platelet Count 102 L Mean Platelet Volume 11.5 H Immature 0.600 H Granulocytes % Neutrophils % 85.5 H Lymphocytes % 6.4 L Monocytes % 7.1 Eosinophils % 0.2 Basophils % 0.2 Nucleated Red Blood 0.0 Cells % Immature 0.060 H Granulocytes # Neutrophils # 8.3 H Lymphocytes # 0.6 L Monocytes # 0.7 Eosinophils # 0.0 Basophils # 0.0 Nucleated Red Blood 0.0 Cells # Sodium Level 143 Potassium Level 4.6 Chloride Level 97 Carbon Dioxide Level 30 Anion Gap 16 H Blood Urea Nitrogen 27 H Creatinine 4.61 #H Est Glomerular 10 L Filtrat Rate mL/min Glucose Level 105 Calcium Level 9.3 Phosphorus Level 4.9 Magnesium Level 2.2 Bedside Glucose 107 Medications Medication Current Medications Ondansetron HCl (Zofran Inj) 4 mg Q6H PRN IV NAUSEA AND/OR VOMITING; Start 12/06/18 at 09:30 Albuterol (Proventil 0.083% (Neb)) 2.5 mg Q2H RESP THERAPY PRN NEB SHORTNESS OF BREATH; Start 12/06/18 at 09:30 Acetaminophen (Tylenol Tab) 650 mg Q6H PRN PO PAIN LEVEL 1-3 OR FEVER; Start 12/06/18 at 09:30 Docusate Sodium (Colace) 100 mg Q12H PRN PO CONSTIPATION; Start 12/06/18 at 09:30 Magnesium Hydroxide (Milk Of Mag) 30 ml DAILY PRN PO CONSTIPATION; Start 12/06/18 at 09:30 Aspirin (Aspirin) 81 mg DAILY PO Last administered on 12/10/18 08:38; Admin Dose 81 MG; Start 12/06/18 at 10:30 Brimonidine Tartrate (Alphagan 0.2%) 1 drop DAILY BOTH EYES Last administered on 12/10/18 08:39; Admin Dose 1 DROP; Start 12/06/18 at 11:00 Calcium Acetate (Phoslo) 667 mg WITH MEALS PO ; Start 12/06/18 at 12:00 Docusate Sodium (Colace) 200 mg DAILY PO ; Start 12/06/18 at 10:30; Status Hold Lactulose (Enulose) 20 gm BID PO Last administered on 12/10/18 08:38; Admin Dose 20 GM; Start 12/06/18 at 21:00 Montelukast Sodium (Singulair) 10 mg HS PO ; Start 12/06/18 at 21:00; Status Hold Multivit/Ca Carb/ B Cmplx/FA/Prenat (Mariaelena-Rosas) 1 tab DAILY PO Last administered on 12/10/18 08:38; Admin Dose 1 TAB; Start 12/06/18 at 10:30 Norepinephrine 250 ml @ 1.875 mls/ hr TITRATE IV Last administered on 12/07/18 13:25; Admin Dose 56.25 MLS/HR; Start 12/06/18 at 13:00 Atropine Sulfate (Atropine (Syringe)) 1 mg PRN PRN IV prn Last administered on 12/06/18 16:49; Admin Dose 1 MG; Start 12/06/18 at 16:00 Propofol 100 ml @ 3.045 mls/ hr Q12H IV Last administered on 12/07/18 02:24; Admin Dose 24.36 MLS/HR; Start 12/06/18 at 16:30 Midazolam HCl 50 ml @ 1 mls/hr TITRATE IV Last administered on 12/09/18 05:09; Admin Dose 4 MLS/HR; Start 12/06/18 at 16:30 Vancomycin HCl (Vanco Iv Per Pharmacy) VANCOMYCIN PER PHARMACY PER PROTOCOL XX ; Start 12/06/18 at 17:30 Cefepime HCl 50 ml @ 100 mls/hr Q24H IVPB Last administered on 12/09/18at 21:11; Admin Dose 100 MLS/HR; Start 12/06/18 at 21:00 Levetiracetam 100 ml @ 400 mls/hr Q12 IVPB Last administered on 12/10/18at 08:49; Admin Dose 400 MLS/HR; Start 12/06/18 at 21:00 Dopamine HCl/ Dextrose 250 ml @ 7.613 mls/ hr TITRATE IV Last administered on 12/09/18at 03:03; Admin Dose 11.419 MLS/HR; Start 12/06/18 at 17:30 Acetaminophen (Tylenol Supp) 650 mg Q4H PRN [place] TEMP > 37C; Start 12/06/18 at 18:30 Acetaminophen (Tylenol Liquid) 650 mg Q4H PRN PO TEMP > 37C; Start 12/06/18 at 18:30 Meperidine HCl (Demerol) 12.5 mg Q4H PRN IV POST OPERATIVE SHIVERING; Start 12/06/18 at 18:30 Meperidine HCl (Demerol) 25 mg Q4H PRN IV POST OPERATIVE SHIVERING; Start 12/06/18 at 18:30 Eye Lubricant (Akwa Oint) 1 applic Q6 BOTH EYES Last administered on 12/10/18at 05:57; Admin Dose 1 APPLIC; Start 12/07/18 at 00:00 Eye Lubricant (Artificial Tears Oph) 2 drop Q6 BOTH EYES Last administered on 12/10/18at 05:56; Admin Dose 2 DROP; Start 12/07/18 at 00:00 Magnesium Sulfate 50 ml @ 25 mls/hr PRN PRN IVPB IV PROTOCOL; Start 12/06/18 at 20:30 Potassium Chloride 50 ml @ 25 mls/hr PRN PRN IVPB IV PROTOCOL Last administered on 12/07/18at 08:33; Admin Dose 25 MLS/HR; Start 12/06/18 at 20:30 Heparin Sodium (Porcine) (Heparin (1000 Units/ml)) 4,000 unit AFTER DIALYSIS CATHETER ; Start 12/06/18 at 22:00 Albumin Human 100 ml @ 100 mls/hr WITH DIALYSIS PRN IV SBP <90 DURING DIALYSIS; Start 12/06/18 at 22:00 Sodium Chloride (NS) -To prime the dialy... DIRECTED FOR HD PRN IV HD; Start 12/06/18 at 22:00 Phenytoin 200 mg/ Sodium Chloride 54 ml @ 112 mls/hr AM IV Last administered on 12/10/18at 08:49; Admin Dose 112 MLS/HR; Start 12/07/18 at 09:00 Phenytoin 200 mg/ Sodium Chloride 54 ml @ 112 mls/hr PC LUNCH IV Last administered on 12/09/18at 13:06; Admin Dose 112 MLS/HR; Start 12/07/18 at 12:30 Phenytoin 300 mg/ Sodium Chloride 56 ml @ 112 mls/hr 2100 IV Last administered on 12/09/18at 21:11; Admin Dose 112 MLS/HR; Start 12/07/18 at 21:00 Pantoprazole (Protonix Iv) 40 mg DAILY@06 IV Last administered on 12/10/18at 05:56; Admin Dose 40 MG; Start 12/07/18 at 06:00 Fentanyl 100 ml @ 2.5 mls/hr TITRATE IV Last administered on 12/08/18at 06:27; Admin Dose 2.5 MLS/HR; Start 12/08/18 at 06:30 Diagnostic Test (Pha) (Accu-Chek) 1 ea 02 XX Last administered on 12/10/18at 02:38; Admin Dose 1 EA; Start 12/09/18 at 02:00 Insulin Aspart (Novolog Insulin Pen) NOVOLOG *MILD* ALGORI... Q4 SC ; Start 12/08/18 at 13:00 Miscellaneous Information 1 ea NOTE XX ; Start 12/08/18 at 11:30 Glucose (Glutose) 15 gm Q15M PRN PO DECREASED GLUCOSE; Start 12/08/18 at 11:30 Glucose (Glutose) 22.5 gm Q15M PRN PO DECREASED GLUCOSE; Start 12/08/18 at 11:30 Dextrose (D50w Syringe) 25 ml Q15M PRN IV DECREASED GLUCOSE; Start 12/08/18 at 11:30 Dextrose (D50w Syringe) 50 ml Q15M PRN IV DECREASED GLUCOSE; Start 12/08/18 at 11:30 Glucagon (Glucagen) 1 mg Q15M PRN IM DECREASED GLUCOSE; Start 12/08/18 at 11:30 Glucose (Glutose) 15 gm Q15M PRN BUCCAL DECREASED GLUCOSE; Start 12/08/18 at 11:30 Collagenase (Santyl) 1 applic DAILY TOP Last administered on 12/10/18at 08:10; Admin Dose 1 APPLIC; Start 12/10/18 at 09:00 DINESH SAVAGE Dec 10, 2018 09:34
--- NOTE | 2018-12-10 09:52 | CONS ---
Assessment/Plan Assessment/Plan Assessment/Plan (Daily) 1. Cardiopulmonary Arrest--initially secondary to NSVT vs. Afib with aberrancy, thereafter course complicated by Torsades with notable QT prolongation. - Currently on Hypothermia protocol 2. ESRD on HD TTS timo at [facility] 3. acute hypoxemic respiratory failure due to cardiac arrest s/p Intubation on ventilator 4. Shock--likely cardiogenic; cannot exclude obstructive though clinical picture not consistent with massive PE. 5. Sepsis 2/2 staph bacteremia 6. HTN heart disease 7.. DM Plan: plan for HD today(extra), another HD tomorrow then pt will be on her original schedule TTS s/p hypothermia protocol , remains intubated pt had a blood in simpson catheter likley due to trauma, CBI has been ordered will follow up Consultation Date/Type/Reason Admit Date/Time Dec 06, 2018 at 12:45 Initial Consult Date 12/06/18 Type of Consult NEPHROLOGY Requesting Provider: BEAN BEST MD Date/Time of Note DATE: 12/10/18 TIME: 09:52 Exam/Review of Systems Exam Vitals Vital Signs Date Temp Pulse Resp B/P (MAP) Pulse Ox O2 O2 Flow FiO2 Time Delivery Rate 12/10/18 78 23 133/65 96 Mechanical 09:00 (87) Ventilator 12/10/18 98.9 08:00 12/10/18 30 08:00 12/06/18 4.0 11:00 Intake and Output 12/09/18 12/09/18 12/10/18 1515:00 23:00 07:00 IntakeIntake Total 365.507 ml 256 ml 0 ml OutputOutput Total 3400 ml 0 ml 10 ml BalanceBalance -3034.493 ml 256 ml -10 ml Exam Constitutional: non-verbal Head: normocephalic, atraumatic Eyes: nl conjunctiva, nl lids ENMT: intubated Neck: supple, non-tender Respiratory: diminished breath sounds Cardiovascular: irregular rhythm Gastrointestinal: soft, nl liver, spleen, non-tender Extremities: 1+ pitting edema, no clubbing/no cyanosis Neurological: unresponsive Skin: nl turgor Results Result Diagram: 12/10/18 0426 12/10/18 0426 Results 24hrs Laboratory Tests Test 12/09/18 13:14 12/09/18 17:20 12/09/18 21:00 12/10/18 00:01 Bedside Glucose 109 112 108 100 Test 12/10/18 02:31 12/10/18 04:00 12/10/18 04:05 12/10/18 04:26 Bedside Glucose 109 108 Lactate 654 H Dehydrogenase White Blood Count 9.7 # Red Blood Count 2.63 L Hemoglobin 7.8 L Hematocrit 26.3 L Mean Corpuscular 100.0 Volume Mean Corpuscular 29.7 Hemoglobin Mean Corpuscular 29.7 L Hemoglobin Concent Red Cell 14.8 H Distribution Width Platelet Count 102 L Mean Platelet Volume 11.5 H Immature 0.600 H Granulocytes % Neutrophils % 85.5 H Lymphocytes % 6.4 L Monocytes % 7.1 Eosinophils % 0.2 Basophils % 0.2 Nucleated Red Blood 0.0 Cells % Immature 0.060 H Granulocytes # Neutrophils # 8.3 H Lymphocytes # 0.6 L Monocytes # 0.7 Eosinophils # 0.0 Basophils # 0.0 Nucleated Red Blood 0.0 Cells # Sodium Level 143 Potassium Level 4.6 Chloride Level 97 Carbon Dioxide Level 30 Anion Gap 16 H Blood Urea Nitrogen 27 H Creatinine 4.61 #H Est Glomerular 10 L Filtrat Rate mL/min Glucose Level 105 Calcium Level 9.3 Phosphorus Level 4.9 Magnesium Level 2.2 Test 12/10/18 08:56 Bedside Glucose 107 Medications Medication Current Medications Ondansetron HCl (Zofran Inj) 4 mg Q6H PRN IV NAUSEA AND/OR VOMITING; Start 12/06/18 at 09:30 Albuterol (Proventil 0.083% (Neb)) 2.5 mg Q2H RESP THERAPY PRN NEB SHORTNESS OF BREATH; Start 12/06/18 at 09:30 Acetaminophen (Tylenol Tab) 650 mg Q6H PRN PO PAIN LEVEL 1-3 OR FEVER; Start 12/06/18 at 09:30 Docusate Sodium (Colace) 100 mg Q12H PRN PO CONSTIPATION; Start 12/06/18 at 09:30 Magnesium Hydroxide (Milk Of Mag) 30 ml DAILY PRN PO CONSTIPATION; Start 12/06/18 at 09:30 Aspirin (Aspirin) 81 mg DAILY PO Last administered on 12/10/18at 08:38; Admin Dose 81 MG; Start 12/06/18 at 10:30 Brimonidine Tartrate (Alphagan 0.2%) 1 drop DAILY BOTH EYES Last administered on 12/10/18 08:39; Admin Dose 1 DROP; Start 12/06/18 at 11:00 Calcium Acetate (Phoslo) 667 mg WITH MEALS PO ; Start 12/06/18 at 12:00 Docusate Sodium (Colace) 200 mg DAILY PO ; Start 12/06/18 at 10:30; Status Hold Lactulose (Enulose) 20 gm BID PO Last administered on 12/10/18 08:38; Admin Dose 20 GM; Start 12/06/18 at 21:00 Montelukast Sodium (Singulair) 10 mg HS PO ; Start 12/06/18 at 21:00; Status Hold Multivit/Ca Carb/ B Cmplx/FA/Prenat (Mariaelena-Rosas) 1 tab DAILY PO Last adminis tered on 12/10/18 08:38; Admin Dose 1 TAB; Start 12/06/18 at 10:30 Norepinephrine 250 ml @ 1.875 mls/ hr TITRATE IV Last administered on 12/07/18 13:25; Admin Dose 56.25 MLS/HR; Start 12/06/18 at 13:00 Atropine Sulfate (Atropine (Syringe)) 1 mg PRN PRN IV prn Last administered on 12/06/18 16:49; Admin Dose 1 MG; Start 12/06/18 at 16:00 Propofol 100 ml @ 3.045 mls/ hr Q12H IV Last administered on 12/07/18 02:24; Admin Dose 24.36 MLS/HR; Start 12/06/18 at 16:30 Midazolam HCl 50 ml @ 1 mls/hr TITRATE IV Last administered on 12/09/18 05:09; Admin Dose 4 MLS/HR; Start 12/06/18 at 16:30 Vancomycin HCl (Vanco Iv Per Pharmacy) VANCOMYCIN PER PHARMACY PER PROTOCOL XX ; Start 12/06/18 at 17:30 Cefepime HCl 50 ml @ 100 mls/hr Q24H IVPB Last administered on 12/09/18 21:11; Admin Dose 100 MLS/HR; Start 12/06/18 at 21:00 Levetiracetam 100 ml @ 400 mls/hr Q12 IVPB Last administered on 4/10/19at 08: 49; Admin Dose 400 MLS/HR; Start 12/06/18 at 21:00 Dopamine HCl/ Dextrose 250 ml @ 7.613 mls/ hr TITRATE IV Last administered on 12/09/18at 03:03; Admin Dose 11.419 MLS/HR; Start 12/06/18 at 17:30 Acetaminophen (Tylenol Supp) 650 mg Q4H PRN [place] TEMP > 37C; Start 12/06/18 at 18:30 Acetaminophen (Tylenol Liquid) 650 mg Q4H PRN PO TEMP > 37C; Start 12/06/18 at 18:30 Meperidine HCl (Demerol) 12.5 mg Q4H PRN IV POST OPERATIVE SHIVERING; Start 12/06/18 at 18:30 Meperidine HCl (Demerol) 25 mg Q4H PRN IV POST OPERATIVE SHIVERING; Start 12/06/18 at 18:30 Eye Lubricant (Akwa Oint) 1 applic Q6 BOTH EYES Last administered on 12/10/18at 05:57; Admin Dose 1 APPLIC; Start 12/07/18 at 00:00 Eye Lubricant (Artificial Tears Oph) 2 drop Q6 BOTH EYES Last administered on 12/10/18at 05:56; Admin Dose 2 DROP; Start 12/07/18 at 00:00 Magnesium Sulfate 50 ml @ 25 mls/hr PRN PRN IVPB IV PROTOCOL; Start 12/06/18 at 20:30 Potassium Chloride 50 ml @ 25 mls/hr PRN PRN IVPB IV PROTOCOL Last administered on 12/07/18at 08:33; Admin Dose 25 MLS/HR; Start 12/06/18 at 20:30 Heparin Sodium (Porcine) (Heparin (1000 Units/ml)) 4,000 unit AFTER DIALYSIS CATHETER ; Start 12/06/18 at 22:00 Albumin Human 100 ml @ 100 mls/hr WITH DIALYSIS PRN IV SBP <90 DURING DIALYSIS; Start 12/06/18 at 22:00 Sodium Chloride (NS) -To prime the dialy... DIRECTED FOR HD PRN IV HD; Start 12/06/18 at 22:00 Phenytoin 200 mg/ Sodium Chloride 54 ml @ 112 mls/hr AM IV Last administered on 12/10/18at 08:49; Admin Dose 112 MLS/HR; Start 12/07/18 at 09:00 Phenytoin 200 mg/ Sodium Chloride 54 ml @ 112 mls/hr PC LUNCH IV Last administered on 12/09/18at 13:06; Admin Dose 112 MLS/HR; Start 12/07/18 at 12:30 Phenytoin 300 mg/ Sodium Chloride 56 ml @ 112 mls/hr 2100 IV Last administered on 12/09/18at 21:11; Admin Dose 112 MLS/HR; Start 12/07/18 at 21:00 Pantoprazole (Protonix Iv) 40 mg DAILY@06 IV Last administered on 12/10/18at 05:56; Admin Dose 40 MG; Start 12/07/18 at 06:00 Fentanyl 100 ml @ 2.5 mls/hr TITRATE IV Last administered on 12/08/18at 06:27; Admin Dose 2.5 MLS/HR; Start 12/08/18 at 06:30 Diagnostic Test (Pha) (Accu-Chek) 1 ea 02 XX Last administered on 12/10/18at 02:38; Admin Dose 1 EA; Start 12/09/18 at 02:00 Insulin Aspart (Novolog Insulin Pen) NOVOLOG *MILD* ALGORI... Q4 SC ; Start 12/08/18 at 13:00 Miscellaneous Information 1 ea NOTE XX ; Start 12/08/18 at 11:30 Glucose (Glutose) 15 gm Q15M PRN PO DECREASED GLUCOSE; Start 12/08/18 at 11:30 Glucose (Glutose) 22.5 gm Q15M PRN PO DECREASED GLUCOSE; Start 12/08/18 at 11:30 Dextrose (D50w Syringe) 25 ml Q15M PRN IV DECREASED GLUCOSE; Start 12/08/18 at 11:30 Dextrose (D50w Syringe) 50 ml Q15M PRN IV DECREASED GLUCOSE; Start 12/08/18 at 11:30 Glucagon (Glucagen) 1 mg Q15M PRN IM DECREASED GLUCOSE; Start 12/08/18 at 11:30 Glucose (Glutose) 15 gm Q15M PRN BUCCAL DECREASED GLUCOSE; Start 12/08/18 at 11:30 Collagenase (Santyl) 1 applic DAILY TOP Last administered on 12/10/18at 08:10; Admin Dose 1 APPLIC; Start 12/10/18 at 09:00 LAZ MELGAR MD Dec 10, 2018 09:52
--- NOTE | 2018-12-10 11:12 | CONS ---
Assessment/Plan Assessment/Plan Hospital Course 47 F c/ reported Hx of stroke and epilepsy, among other comorbidities, who is currently admitted to the [facility] ICU following cardiac arrest. Now s/p TTM. On neurologic examination, she has preserved brainstem activity and a withdrawal motor response.. Her prognosis for meaningful neurologic recovery is, thus, guarded.. P: Head CT for further characterization when medically able EEG to exclude subclinical seizure Add Ammonia level Continue to limit sedating medications where possible Other medical management and supportive care per primary Will follow clinically Consultation Date/Type/Reason Admit Date/Time Dec 06, 2018 at 12:45 Type of Consult Neurology Reason for Consultation coma Requesting Provider: BOZENA PARK Date/Time of Note DATE: 12/10/18 TIME: 11:06 Exam/Review of Systems Exam Vitals Vital Signs Date Temp Pulse Resp B/P (MAP) Pulse Ox O2 O2 Flow FiO2 Time Delivery Rate 12/10/18 74 26 126/52 100 Mechanical 10:30 (76) Ventilator 12/10/18 30 09:53 12/10/18 98.9 08:00 12/06/18 4.0 11:00 Intake and Output 12/09/18 12/09/18 12/10/18 1515:00 23:00 07:00 IntakeIntake Total 365.507 ml 256 ml 0 ml OutputOutput Total 3400 ml 0 ml 10 ml BalanceBalance -3034.493 ml 256 ml -10 ml Results Result Diagram: 12/10/18 0426 12/10/18 0426 Results 24hrs Laboratory Tests Test 12/09/18 13:14 12/09/18 17:20 12/09/18 21:00 12/10/18 00:01 Bedside Glucose 109 112 108 100 Test 12/10/18 02:31 12/10/18 04:00 12/10/18 04:05 12/10/18 04:26 Bedside Glucose 109 108 Lactate 654 H Dehydrogenase White Blood Count 9.7 # Red Blood Count 2.63 L Hemoglobin 7.8 L Hematocrit 26.3 L Mean Corpuscular 100.0 Volume Mean Corpuscular 29.7 Hemoglobin Mean Corpuscular 29.7 L Hemoglobin Concent Red Cell 14.8 H Distribution Width Platelet Count 102 L Mean Platelet Volume 11.5 H Immature 0.600 H Granulocytes % Neutrophils % 85.5 H Lymphocytes % 6.4 L Monocytes % 7.1 Eosinophils % 0.2 Basophils % 0.2 Nucleated Red Blood 0.0 Cells % Immature 0.060 H Granulocytes # Neutrophils # 8.3 H Lymphocytes # 0.6 L Monocytes # 0.7 Eosinophils # 0.0 Basophils # 0.0 Nucleated Red Blood 0.0 Cells # Sodium Level 143 Potassium Level 4.6 Chloride Level 97 Carbon Dioxide Level 30 Anion Gap 16 H Blood Urea Nitrogen 27 H Creatinine 4.61 #H Est Glomerular 10 L Filtrat Rate mL/min Glucose Level 105 Calcium Level 9.3 Phosphorus Level 4.9 Magnesium Level 2.2 Test 12/10/18 08:56 Bedside Glucose 107 Medications Medication Current Medications Ondansetron HCl (Zofran Inj) 4 mg Q6H PRN IV NAUSEA AND/OR VOMITING; Start 12/06/18 at 09:30 Albuterol (Proventil 0.083% (Neb)) 2.5 mg Q2H RESP THERAPY PRN NEB SHORTNESS OF BREATH; Start 12/06/18 at 09:30 Acetaminophen (Tylenol Tab) 650 mg Q6H PRN PO PAIN LEVEL 1-3 OR FEVER; Start 12/06/18 at 09:30 Docusate Sodium (Colace) 100 mg Q12H PRN PO CONSTIPATION; Start 12/06/18 at 09:30 Magnesium Hydroxide (Milk Of Mag) 30 ml DAILY PRN PO CONSTIPATION; Start 12/06/18 at 09:30 Aspirin (Aspirin) 81 mg DAILY PO Last administered on 12/10/18at 08:38; Admin Dose 81 MG; Start 12/06/18 at 10:30 Brimonidine Tartrate (Alphagan 0.2%) 1 drop DAILY BOTH EYES Last administered on 12/10/18at 08:39; Admin Dose 1 DROP; Start 12/06/18 at 11:00 Calcium Acetate (Phoslo) 667 mg WITH MEALS PO ; Start 12/06/18 at 12:00 Docusate Sodium (Colace) 200 mg DAILY PO ; Start 12/06/18 at 10:30; Status Hold Lactulose (Enulose) 20 gm BID PO Last administered on 12/10/18at 08:38; Admin Dose 20 GM; Start 12/06/18 at 21:00 Montelukast Sodium (Singulair) 10 mg HS PO ; Start 12/06/18 at 21:00; Status Hold Multivit/Ca Carb/ B Cmplx/FA/Prenat (Mariaelena-Rosas) 1 tab DAILY PO Last administered on 12/10/18 08:38; Admin Dose 1 TAB; Start 12/06/18 at 10:30 Norepinephrine 250 ml @ 1.875 mls/ hr TITRATE IV Last administered on 12/07/18 13:25; Admin Dose 56.25 MLS/HR; Start 12/06/18 at 13:00 Atropine Sulfate (Atropine (Syringe)) 1 mg PRN PRN IV prn Last administered on 12/06/18 16:49; Admin Dose 1 MG; Start 12/06/18 at 16:00 Propofol 100 ml @ 3.045 mls/ hr Q12H IV Last administered on 12/07/18 02:24; Admin Dose 24.36 MLS/HR; Start 12/06/18 at 16:30 Midazolam HCl 50 ml @ 1 mls/hr TITRATE IV Last administered on 12/09/18 05:09; Admin Dose 4 MLS/HR; Start 12/06/18 at 16:30 Vancomycin HCl (Vanco Iv Per Pharmacy) VANCOMYCIN PER PHARMACY PER PROTOCOL XX ; Start 12/06/18 at 17:30 Cefepime HCl 50 ml @ 100 mls/hr Q24H IVPB Last administered on 12/09/18 21:11; Admin Dose 100 MLS/HR; Start 12/06/18 at 21:00 Levetiracetam 100 ml @ 400 mls/hr Q12 IVPB Last administered on 12/10/18 08:49; Admin Dose 400 MLS/HR; Start 12/06/18 at 21:00 Dopamine HCl/ Dextrose 250 ml @ 7.613 mls/ hr TITRATE IV Last administered on 12/09/18 03:03; Admin Dose 11.419 MLS/HR; Start 12/06/18 at 17:30 Acetaminophen (Tylenol Supp) 650 mg Q4H PRN [place] TEMP > 37C; Start 12/06/18 at 18:30 Acetaminophen (Tylenol Liquid) 650 mg Q4H PRN PO TEMP > 37C; Start 12/06/18 at 18:30 Meperidine HCl (Demerol) 12.5 mg Q4H PRN IV POST OPERATIVE SHIVERING; Start 12/06/18 at 18:30 Meperidine HCl (Demerol) 25 mg Q4H PRN IV POST OPERATIVE SHIVERING; Start 12/06/18 at 18:30 Eye Lubricant (Akwa Oint) 1 applic Q6 BOTH EYES Last administered on 12/10/18 05:57; Admin Dose 1 APPLIC; Start 12/07/18 at 00:00 Eye Lubricant (Artificial Tears Oph) 2 drop Q6 BOTH EYES Last administered on 12/10/18 05:56; Admin Dose 2 DROP; Start 12/07/18 at 00:00 Magnesium Sulfate 50 ml @ 25 mls/hr PRN PRN IVPB IV PROTOCOL; Start 12/06/18 at 20:30 Potassium Chloride 50 ml @ 25 mls/hr PRN PRN IVPB IV PROTOCOL Last administered on 12/07/18at 08:33; Admin Dose 25 MLS/HR; Start 12/06/18 at 20:30 Heparin Sodium (Porcine) (Heparin (1000 Units/ml)) 4,000 unit AFTER DIALYSIS CATHETER ; Start 12/06/18 at 22:00 Albumin Human 100 ml @ 100 mls/hr WITH DIALYSIS PRN IV SBP <90 DURING DIALYSIS; Start 12/06/18 at 22:00 Sodium Chloride (NS) -To prime the dialy... DIRECTED FOR HD PRN IV HD; Start 12/06/18 at 22:00 Phenytoin 200 mg/ Sodium Chloride 54 ml @ 112 mls/hr AM IV Last administered on 12/10/18at 08:49; Admin Dose 112 MLS/HR; Start 12/07/18 at 09:00 Phenytoin 200 mg/ Sodium Chloride 54 ml @ 112 mls/hr PC LUNCH IV Last administered on 12/09/18 13:06; Admin Dose 112 MLS/HR; Start 12/07/18 at 12:30 Phenytoin 300 mg/ Sodium Chloride 56 ml @ 112 mls/hr 2100 IV Last administered on 12/09/18 21:11; Admin Dose 112 MLS/HR; Start 12/07/18 at 21:00 Pantoprazole (Protonix Iv) 40 mg DAILY@06 IV Last administered on 12/10/18 05:56; Admin Dose 40 MG; Start 12/07/18 at 06:00 Fentanyl 100 ml @ 2.5 mls/hr TITRATE IV Last administered on 12/08/18at 06:27; Admin Dose 2.5 MLS/HR; Start 12/08/18 at 06:30 Diagnostic Test (Pha) (Accu-Chek) 1 ea 02 XX Last administered on 12/10/18at 02:38; Admin Dose 1 EA; Start 12/09/18 at 02:00 Miscellaneous Information 1 ea NOTE XX ; Start 12/08/18 at 11:30 Glucose (Glutose) 15 gm Q15M PRN PO DECREASED GLUCOSE; Start 12/08/18 at 11:30 Glucose (Glutose) 22.5 gm Q15M PRN PO DECREASED GLUCOSE; Start 12/08/18 at 11:30 Dextrose (D50w Syringe) 25 ml Q15M PRN IV DECREASED GLUCOSE; Start 12/08/18 at 11:30 Dextrose (D50w Syringe) 50 ml Q15M PRN IV DECREASED GLUCOSE; Start 12/08/18 at 11:30 Glucagon (Glucagen) 1 mg Q15M PRN IM DECREASED GLUCOSE; Start 12/08/18 at 11:30 Glucose (Glutose) 15 gm Q15M PRN BUCCAL DECREASED GLUCOSE; Start 12/08/18 at 11:30 Collagenase (Santyl) 1 applic DAILY TOP Last administered on 12/10/18at 08:10; Admin Dose 1 APPLIC; Start 12/10/18 at 09:00 Insulin Aspart (Novolog Insulin Pen) NOVOLOG *MILD* ALGORI... Q6 SC ; Start 12/10/18 at 12:00 Past Medical History Medical History: other (ESRD on HD for the past 8 years, Diabetes Mellitus, HTN, CVA with L sided residual weakness and ? afib on Coumadin ) Home Meds Reported Medications Insulin Lispro (Humalog) 100 U/Ml Vial, SQ SSI TID AND HS PRN 09/12/11 Multivit/Ca Carb/B Cmplx/Fa* (Mariaelena-Rosas*) 1 Tab Tab, 1 TAB PO DAILY 09/12/11 [Prostat 64] No Conflict Check, 30 ML PO TID 09/12/11 Esomeprazole Mag Trihydrate (Nexium) 40 Mg Capsule.dr, 40 MG PO DAILY 09/12/11 Metoprolol (Lopressor) 100 Mg Tablet, 100 MG PO BID 09/12/11 Benazepril Hcl* (Lotensin*) 40 Mg Tablet, 40 MG PO DAILY 09/12/11 [Lactulose] No Conflict Check, 30 ML PO DAILY PRN 09/12/11 Lactulose (Lactulose) 10 G/15 Ml Solution, 20 G PO BID 09/12/11 Glipizide* (Glucotrol XL*) 2.5 Mg Tabsr, 2.5 MG PO DAILY 09/12/11 Phenytoin* Sodium Extended (Dilantin*) 100 Mg Capsule, 300 MG PO HS 09/12/11 Phenytoin* Sodium Extended (Dilantin*) 100 Mg Capsule, 200 MG PO DAILY @0900 09/12/11 Phenytoin* Sodium Extended (Dilantin*) 100 Mg Capsule, 200 MG PO DAILY @1300 09/12/11 Phenytoin* Sodium Extended (Dilantin*) 100 Mg Capsule, 200 MG PO DAILY 09/12/11 Docusate Sodium* (Colace*) 100 Mg Capsule, 200 MG PO DAILY 09/12/11 Warfarin Sodium* (Coumadin*) 7.5 Mg Tablet, 7.5 MG PO Q OTHER DAY 06/01/11 Montelukast Sodium* (Singulair*) 10 Mg Tablet, 10 MG PO HS 06/01/11 Folic Acid/Vitamin B Comp W-C* (Nephro-Rosas Tablet*) 0.8 Mg Tablet, 0.8 MG PO DAILY 06/01/11 Aspirin (Aspirin) 81 Mg Tablet, 81 MG PO DAILY 06/01/11 Levetiracetam* (Keppra*) 500 Mg Tablet, 500 MG PO BID 06/01/11 Clonidine Hcl* (Clonidine Hcl*) 0.2 Mg Tablet 01/09/11 Metoclopramide Hcl* (Metoclopramide Hcl*) 10 Mg Tablet 01/09/11 Brimonidine Tartrate* (Brimonidine Tartrate*) 15 Ml Drops 01/09/11 Prednisolone Acetate (Pred Forte) 5 Ml Drops.susp 01/09/11 Nifedipine (Nifedical XL*) 30 Mg/Bottle Tab.osm.24 01/09/11 Calcium Acetate* (Phoslo*) 667 Mg Tablet 10/24/09 Medications Current Medications Ondansetron HCl (Zofran Inj) 4 mg Q6H PRN IV NAUSEA AND/OR VOMITING; Start 12/06/18 at 09:30 Albuterol (Proventil 0.083% (Neb)) 2.5 mg Q2H RESP THERAPY PRN NEB SHORTNESS OF BREATH; Start 12/06/18 at 09:30 Acetaminophen (Tylenol Tab) 650 mg Q6H PRN PO PAIN LEVEL 1-3 OR FEVER; Start 12/06/18 at 09:30 Docusate Sodium (Colace) 100 mg Q12H PRN PO CONSTIPATION; Start 12/06/18 at 09:30 Magnesium Hydroxide (Milk Of Mag) 30 ml DAILY PRN PO CONSTIPATION; Start 12/06/18 at 09:30 Aspirin (Aspirin) 81 mg DAILY PO Last administered on 12/10/18 08:38; Admin Dose 81 MG; Start 12/06/18 at 10:30 Brimonidine Tartrate (Alphagan 0.2%) 1 drop DAILY BOTH EYES Last administered on 12/10/18 08:39; Admin Dose 1 DROP; Start 12/06/18 at 11:00 Calcium Acetate (Phoslo) 667 mg WITH MEALS PO ; Start 12/06/18 at 12:00 Docusate Sodium (Colace) 200 mg DAILY PO ; Start 12/06/18 at 10:30; Status Hold Lactulose (Enulose) 20 gm BID PO Last administered on 12/10/18 08:38; Admin Dose 20 GM; Start 12/06/18 at 21:00 Montelukast Sodium (Singulair) 10 mg HS PO ; Start 12/06/18 at 21:00; Status Hold Multivit/Ca Carb/ B Cmplx/FA/Prenat (Mariaelena-Rosas) 1 tab DAILY PO Last administered on 12/10/18 08:38; Admin Dose 1 TAB; Start 12/06/18 at 10:30 Norepinephrine 250 ml @ 1.875 mls/ hr TITRATE IV Last administered on 12/07/18 13:25; Admin Dose 56.25 MLS/HR; Start 12/06/18 at 13:00 Atropine Sulfate (Atropine (Syringe)) 1 mg PRN PRN IV prn Last administered on 12/06/18 16:49; Admin Dose 1 MG; Start 12/06/18 at 16:00 Propofol 100 ml @ 3.045 mls/ hr Q12H IV Last administered on 4/7/19at 02:24; Admin Dose 24.36 MLS/HR; Start 12/06/18 at 16:30 Midazolam HCl 50 ml @ 1 mls/hr TITRATE IV Last administered on 12/09/18 05:09; Admin Dose 4 MLS/HR; Start 12/06/18 at 16:30 Vancomycin HCl (Vanco Iv Per Pharmacy) VANCOMYCIN PER PHARMACY PER PROTOCOL XX ; Start 12/06/18 at 17:30 Cefepime HCl 50 ml @ 100 mls/hr Q24H IVPB Last administered on 12/09/18at 21:11; Admin Dose 100 MLS/HR; Start 12/06/18 at 21:00 Levetiracetam 100 ml @ 400 mls/hr Q12 IVPB Last administered on 12/10/18at 08:49; Admin Dose 400 MLS/HR; Start 12/06/18 at 21:00 Dopamine HCl/ Dextrose 250 ml @ 7.613 mls/ hr TITRATE IV Last administered on 12/09/18 03:03; Admin Dose 11.419 MLS/HR; Start 12/06/18 at 17:30 Acetaminophen (Tylenol Supp) 650 mg Q4H PRN [place] TEMP > 37C; Start 12/06/18 at 18 :30 Acetaminophen (Tylenol Liquid) 650 mg Q4H PRN PO TEMP > 37C; Start 12/06/18 at 18:30 Meperidine HCl (Demerol) 12.5 mg Q4H PRN IV POST OPERATIVE SHIVERING; Start 12/06/18 at 18:30 Meperidine HCl (Demerol) 25 mg Q4H PRN IV POST OPERATIVE SHIVERING; Start 12/06/18 at 18:30 Eye Lubricant (Akwa Oint) 1 applic Q6 BOTH EYES Last administered on 12/10/18 05:57; Admin Dose 1 APPLIC; Start 12/07/18 at 00:00 Eye Lubricant (Artificial Tears Oph) 2 drop Q6 BOTH EYES Last administered on 12/10/18 05:56; Admin Dose 2 DROP; Start 12/07/18 at 00:00 Magnesium Sulfate 50 ml @ 25 mls/hr PRN PRN IVPB IV PROTOCOL; Start 12/06/18 at 20:30 Potassium Chloride 50 ml @ 25 mls/hr PRN PRN IVPB IV PROTOCOL Last administered on 12/07/18at 08:33; Admin Dose 25 MLS/HR; Start 12/06/18 at 20:30 Heparin Sodium (Porcine) (Heparin (1000 Units/ml)) 4,000 unit AFTER DIALYSIS CATHETER ; Start 12/06/18 at 22:00 Albumin Human 100 ml @ 100 mls/hr WITH DIALYSIS PRN IV SBP <90 DURING DIALYSIS; Start 12/06/18 at 22:00 Sodium Chloride (NS) -To prime the dialy... DIRECTED FOR HD PRN IV HD; Start 12/06/18 at 22:00 Phenytoin 200 mg/ Sodium Chloride 54 ml @ 112 mls/hr AM IV Last administered on 12/10/18at 08:49; Admin Dose 112 MLS/HR; Start 12/07/18 at 09:00 Phenytoin 200 mg/ Sodium Chloride 54 ml @ 112 mls/hr PC LUNCH IV Last administered on 12/09/18at 13:06; Admin Dose 112 MLS/HR; Start 12/07/18 at 12:30 Phenytoin 300 mg/ Sodium Chloride 56 ml @ 112 mls/hr 2100 IV Last administered on 12/09/18at 21:11; Admin Dose 112 MLS/HR; Start 12/07/18 at 21:00 Pantoprazole (Protonix Iv) 40 mg DAILY@06 IV Last administered on 12/10/18at 05:56; Admin Dose 40 MG; Start 12/07/18 at 06:00 Fentanyl 100 ml @ 2.5 mls/hr TITRATE IV Last administered on 12/08/18at 06:27; Admin Dose 2.5 MLS/HR; Start 12/08/18 at 06:30 Diagnostic Test (Pha) (Accu-Chek) 1 ea 02 XX Last administered on 12/10/18at 02:38; Admin Dose 1 EA; Start 12/09/18 at 02:00 Miscellaneous Information 1 ea NOTE XX ; Start 12/08/18 at 11:30 Glucose (Glutose) 15 gm Q15M PRN PO DECREASED GLUCOSE; Start 12/08/18 at 11:30 Glucose (Glutose) 22.5 gm Q15M PRN PO DECREASED GLUCOSE; Start 12/08/18 at 11:30 Dextrose (D50w Syringe) 25 ml Q15M PRN IV DECREASED GLUCOSE; Start 12/08/18 at 11:30 Dextrose (D50w Syringe) 50 ml Q15M PRN IV DECREASED GLUCOSE; Start 12/08/18 at 11:30 Glucagon (Glucagen) 1 mg Q15M PRN IM DECREASED GLUCOSE; Start 12/08/18 at 11:30 Glucose (Glutose) 15 gm Q15M PRN BUCCAL DECREASED GLUCOSE; Start 12/08/18 at 11:30 Collagenase (Santyl) 1 applic DAILY TOP Last administered on 12/10/18at 08:10; Admin Dose 1 APPLIC; Start 12/10/18 at 09:00 Insulin Aspart (Novolog Insulin Pen) NOVOLOG *MILD* ALGORI... Q6 SC ; Start 12/10/18 at 12:00 Allergies: Coded Allergies: No Known Allergy (Verified , 10/24/11) Past Surgical History Past Surgical Hx: other (fistula placement, C section) Social History Alcohol Use: none Smoking Status: Never smoker Drug Use: none BEN DICKINSON Dec 10, 2018 11:11
--- NOTE | 2018-12-10 12:01 | CONS ---
Assessment/Plan Assessment/Plan Hospital Course (Demo Recall) s/p cardiac arrest:First event was torsades in setting of prolonged QT caused by amiodarone. Subsequent PEA events. Trops negative and no ischemic EKG changes. Had a bradycardic arrest as well which may have been metabolic or related to lidocaine. No further arrhythmias and seems to be stabilizing. EF is 35% and there is significant RV dysfunction and likely underlying severe pulm HTN which cannot be assessed accurately by echo. If she recovers she will need a cardiac cath for evaluation. Staph aureus bacteremia so may all have been sepsis related Shock: Septic with bacteremia. Off pressors Staph aureus bacteremia Torsades: due to amiodarone induced prolonged QTc. Now resolved Prolonged QT: due to amiodarone. Improved Cardiomyopathy: EF 35% RV dysfunction: doubt acute PE but maybe long standing pulm HTN NSVT: Unfortunately the tele bed in the ER that she was in did not record arrhythmias. Per ER MD she had 10-12 beats runs. Acute on chronic systolic CHF: EF 35%. Decompensated on exam HTN : BP initially recorded in the 120s, then >200. Now off dopamine ?Paroxysmal afib: Coumadin is on her med list but INR was normal on admission. With h/o stroke, presumably she had afib in the past. ESRD on HD DM CVA with left weakness -antibiotics -hold all BP meds for now as remains normotensive -cardiac cath at some point during hospitalization if neurologic recovery Consultation Date/Type/Reason Admit Date/Time Dec 06, 2018 at 12:45 Initial Consult Date 12/06/18 Type of Consult Cardiology Requesting Provider: BOZENA PARK Date/Time of Note DATE: 12/10/18 TIME: 11:59 24 HR Interval Summary Free Text/Dictation Still unresponsive. Hemodynamically and electrically stable Exam/Review of Systems Vital Signs Vitals Vital Signs Date Temp Pulse Resp B/P (MAP) Pulse Ox O2 O2 Flow FiO2 Time Delivery Rate 12/10/18 71 15 100 30 11:13 12/10/18 126/52 Mechanical 10:30 (76) Ventilator 12/10/18 98.9 08:00 12/06/18 4.0 11:00 Intake and Output 12/09/18 12/09/18 12/10/18 1515:00 23:00 07:00 IntakeIntake Total 365.507 ml 256 ml 0 ml OutputOutput Total 3400 ml 0 ml 10 ml BalanceBalance -3034.493 ml 256 ml -10 ml Exam Constitutional: No alert, No distress Neck: No jvd (unabel to assess) Respiratory: diminished breath sounds; No clear to auscultation Cardiovascular: regular rate and rhythm, edema (trace); No systolic murmur Gastrointestinal: soft; No distended Musculoskeletal: No nl extremities to inspection Neurological: No nl mental status, No nl speech Labs Result Diagram: 12/10/18 0426 12/10/18 0426 Results 24hrs Laboratory Tests Test 12/09/18 13:14 12/09/18 17:20 12/09/18 21:00 12/10/18 00:01 Bedside Glucose 109 112 108 100 Test 12/10/18 02:31 12/10/18 04:00 12/10/18 04:05 12/10/18 04:26 Bedside Glucose 109 108 Lactate 654 H Dehydrogenase White Blood Count 9.7 # Red Blood Count 2.63 L Hemoglobin 7.8 L Hematocrit 26.3 L Mean Corpuscular 100.0 Volume Mean Corpuscular 29.7 Hemoglobin Mean Corpuscular 29.7 L Hemoglobin Concent Red Cell 14.8 H Distribution Width Platelet Count 102 L Mean Platelet Volume 11.5 H Immature 0.600 H Granulocytes % Neutrophils % 85.5 H Lymphocytes % 6.4 L Monocytes % 7.1 Eosinophils % 0.2 Basophils % 0.2 Nucleated Red Blood 0.0 Cells % Immature 0.060 H Granulocytes # Neutrophils # 8.3 H Lymphocytes # 0.6 L Monocytes # 0.7 Eosinophils # 0.0 Basophils # 0.0 Nucleated Red Blood 0.0 Cells # Sodium Level 143 Potassium Level 4.6 Chloride Level 97 Carbon Dioxide Level 30 Anion Gap 16 H Blood Urea Nitrogen 27 H Creatinine 4.61 #H Est Glomerular 10 L Filtrat Rate mL/min Glucose Level 105 Calcium Level 9.3 Phosphorus Level 4.9 Magnesium Level 2.2 Test 12/10/18 08:56 Bedside Glucose 107 Medications Medications Current Medications Ondansetron HCl (Zofran Inj) 4 mg Q6H PRN IV NAUSEA AND/OR VOMITING; Start 12/06/18 at 09:30 Albuterol (Proventil 0.083% (Neb)) 2.5 mg Q2H RESP THERAPY PRN NEB SHORTNESS OF BREATH; Start 12/06/18 at 09:30 Acetaminophen (Tylenol Tab) 650 mg Q6H PRN PO PAIN LEVEL 1-3 OR FEVER; Start 12/06/18 at 09:30 Docusate Sodium (Colace) 100 mg Q12H PRN PO CONSTIPATION; Start 12/06/18 at 09:30 Magnesium Hydroxide (Milk Of Mag) 30 ml DAILY PRN PO CONSTIPATION; Start 12/06/18 at 09:30 Aspirin (Aspirin) 81 mg DAILY PO Last administered on 12/10/18 08:38; Admin Dose 81 MG; Start 12/06/18 at 10:30 Brimonidine Tartrate (Alphagan 0.2%) 1 drop DAILY BOTH EYES Last administered on 12/10/18 08:39; Admin Dose 1 DROP; Start 12/06/18 at 11:00 Calcium Acetate (Phoslo) 667 mg WITH MEALS PO ; Start 12/06/18 at 12:00 Docusate Sodium (Colace) 200 mg DAILY PO ; Start 12/06/18 at 10:30; Status Hold Lactulose (Enulose) 20 gm BID PO Last administered on 12/10/18 08:38; Admin Dose 20 GM; Start 12/06/18 at 21:00 Montelukast Sodium (Singulair) 10 mg HS PO ; Start 12/06/18 at 21:00; Status Hold Multivit/Ca Carb/ B Cmplx/FA/Prenat (Mariaelena-Rosas) 1 tab DAILY PO Last administered on 12/10/18 08:38; Admin Dose 1 TAB; Start 12/06/18 at 10:30 Norepinephrine 250 ml @ 1.875 mls/ hr TITRATE IV Last administered on 12/07/18 13:25; Admin Dose 56.25 MLS/HR; Start 12/06/18 at 13:00 Atropine Sulfate (Atropine (Syringe)) 1 mg PRN PRN IV prn Last administered on 12/06/18 16:49; Admin Dose 1 MG; Start 12/06/18 at 16:00 Propofol 100 ml @ 3.045 mls/ hr Q12H IV Last administered on 12/07/18 02:24; Admin Dose 24.36 MLS/HR; Start 12/06/18 at 16:30 Midazolam HCl 50 ml @ 1 mls/hr TITRATE IV Last administered on 12/09/18at 05:09; Admin Dose 4 MLS/HR; Start 12/06/18 at 16:30 Vancomycin HCl (Vanco Iv Per Pharmacy) VANCOMYCIN PER PHARMACY PER PROTOCOL XX ; Start 12/06/18 at 17:30 Cefepime HCl 50 ml @ 100 mls/hr Q24H IVPB Last administered on 12/09/18at 21:11; Admin Dose 100 MLS/HR; Start 12/06/18 at 21:00 Levetiracetam 100 ml @ 400 mls/hr Q12 IVPB Last administered on 12/10/18at 08:49; Admin Dose 400 MLS/HR; Start 12/06/18 at 21:00 Dopamine HCl/ Dextrose 250 ml @ 7.613 mls/ hr TITRATE IV Last administered on 12/09/18at 03:03; Admin Dose 11.419 MLS/HR; Start 12/06/18 at 17:30 Acetaminophen (Tylenol Supp) 650 mg Q4H PRN [place] TEMP > 37C; Start 12/06/18 at 18:30 Acetaminophen (Tylenol Liquid) 650 mg Q4H PRN PO TEMP > 37C; Start 12/06/18 at 18:30 Meperidine HCl (Demerol) 12.5 mg Q4H PRN IV POST OPERATIVE SHIVERING; Start 12/06/18 at 18:30 Meperidine HCl (Demerol) 25 mg Q4H PRN IV POST OPERATIVE SHIVERING; Start 12/06/18 at 18:30 Eye Lubricant (Akwa Oint) 1 applic Q6 BOTH EYES Last administered on 12/10/18at 05:57; Admin Dose 1 APPLIC; Start 12/07/18 at 00:00 Eye Lubricant (Artificial Tears Oph) 2 drop Q6 BOTH EYES Last administered on 12/10/18 05:56; Admin Dose 2 DROP; Start 12/07/18 at 00:00 Magnesium Sulfate 50 ml @ 25 mls/hr PRN PRN IVPB IV PROTOCOL; Start 12/06/18 at 20:30 Potassium Chloride 50 ml @ 25 mls/hr PRN PRN IVPB IV PROTOCOL Last administered on 12/07/18at 08:33; Admin Dose 25 MLS/HR; Start 12/06/18 at 20:30 Heparin Sodium (Porcine) (Heparin (1000 Units/ml)) 4,000 unit AFTER DIALYSIS CATHETER ; Start 12/06/18 at 22:00 Albumin Human 100 ml @ 100 mls/hr WITH DIALYSIS PRN IV SBP <90 DURING DIALYSIS; Start 12/06/18 at 22:00 Sodium Chloride (NS) -To prime the dialy... DIRECTED FOR HD PRN IV HD; Start 12/06/18 at 22:00 Phenytoin 200 mg/ Sodium Chloride 54 ml @ 112 mls/hr AM IV Last administered on 12/10/18at 08:49; Admin Dose 112 MLS/HR; Start 12/07/18 at 09:00 Phenytoin 200 mg/ Sodium Chloride 54 ml @ 112 mls/hr PC LUNCH IV Last administered on 12/09/18at 13:06; Admin Dose 112 MLS/HR; Start 12/07/18 at 12:30 Phenytoin 300 mg/ Sodium Chloride 56 ml @ 112 mls/hr 2100 IV Last administered on 12/09/18at 21:11; Admin Dose 112 MLS/HR; Start 12/07/18 at 21:00 Pantoprazole (Protonix Iv) 40 mg DAILY@06 IV Last administered on 12/10/18at 05:56; Admin Dose 40 MG; Start 12/07/18 at 06:00 Fentanyl 100 ml @ 2.5 mls/hr TITRATE IV Last administered on 12/08/18at 06:27; Admin Dose 2.5 MLS/HR; Start 12/08/18 at 06:30 Diagnostic Test (Pha) (Accu-Chek) 1 ea 02 XX Last administered on 12/10/18at 02:38; Admin Dose 1 EA; Start 12/09/18 at 02:00 Miscellaneous Information 1 ea NOTE XX ; Start 12/08/18 at 11:30 Glucose (Glutose) 15 gm Q15M PRN PO DECREASED GLUCOSE; Start 12/08/18 at 11:30 Glucose (Glutose) 22.5 gm Q15M PRN PO DECREASED GLUCOSE; Start 12/08/18 at 11:30 Dextrose (D50w Syringe) 25 ml Q15M PRN IV DECREASED GLUCOSE; Start 12/08/18 at 11:30 Dextrose (D50w Syringe) 50 ml Q15M PRN IV DECREASED GLUCOSE; Start 12/08/18 at 11:30 Glucagon (Glucagen) 1 mg Q15M PRN IM DECREASED GLUCOSE; Start 12/08/18 at 11:30 Glucose (Glutose) 15 gm Q15M PRN BUCCAL DECREASED GLUCOSE; Start 12/08/18 at 11:30 Collagenase (Santyl) 1 applic DAILY TOP Last administered on 12/10/18at 08:10; Admin Dose 1 APPLIC; Start 12/10/18 at 09:00 Insulin Aspart (Novolog Insulin Pen) NOVOLOG *MILD* ALGORI... Q6 SC ; Start 12/10/18 at 12:00 JJ BRANCH Dec 10, 2018 12:01
--- NOTE | 2018-12-10 12:43 | PN ---
Date/Time of Note Date/Time of Note DATE: 12/10/18 TIME: 12:34 Objective Vitals Vital Signs Date Temp Pulse Resp B/P (MAP) Pulse Ox O2 O2 Flow FiO2 Time Delivery Rate 12/10/18 78 12:00 12/10/18 15 100 30 11:13 12/10/18 126/52 Mechanical 10:30 (76) Ventilator 12/10/18 98.9 08:00 12/06/18 4.0 11:00 Intake and Output 12/09/18 12/09/18 12/10/18 1515:00 23:00 07:00 IntakeIntake Total 365.507 ml 256 ml 0 ml OutputOutput Total 3400 ml 0 ml 10 ml BalanceBalance -3034.493 ml 256 ml -10 ml Results Result Diagram: 12/10/18 0426 12/10/18 0426 Medications Medications Current Medications Ondansetron HCl (Zofran Inj) 4 mg Q6H PRN IV NAUSEA AND/OR VOMITING; Start 12/06/18 at 09:30 Albuterol (Proventil 0.083% (Neb)) 2.5 mg Q2H RESP THERAPY PRN NEB SHORTNESS OF BREATH; Start 12/06/18 at 09:30 Acetaminophen (Tylenol Tab) 650 mg Q6H PRN PO PAIN LEVEL 1-3 OR FEVER; Start 12/06/18 at 09:30 Docusate Sodium (Colace) 100 mg Q12H PRN PO CONSTIPATION; Start 12/06/18 at 09:30 Magnesium Hydroxide (Milk Of Mag) 30 ml DAILY PRN PO CONSTIPATION; Start 12/06/18 at 09:30 Aspirin (Aspirin) 81 mg DAILY PO Last administered on 12/10/18at 08:38; Admin Dose 81 MG; Start 12/06/18 at 10:30 Brimonidine Tartrate (Alphagan 0.2%) 1 drop DAILY BOTH EYES Last administered on 12/10/18at 08:39; Admin Dose 1 DROP; Start 12/06/18 at 11:00 Calcium Acetate (Phoslo) 667 mg WITH MEALS PO ; Start 12/06/18 at 12:00 Docusate Sodium (Colace) 200 mg DAILY PO ; Start 12/06/18 at 10:30; Status Hold Lactulose (Enulose) 20 gm BID PO Last administered on 12/10/18 08:38; Admin Dose 20 GM; Start 12/06/18 at 21:00 Montelukast Sodium (Singulair) 10 mg HS PO ; Start 12/06/18 at 21:00; Status Hold Multivit/Ca Carb/ B Cmplx/FA/Prenat (Mariaelena-Rosas) 1 tab DAILY PO Last administered on 12/10/18 08:38; Admin Dose 1 TAB; Start 12/06/18 at 10:30 Norepinephrine 250 ml @ 1.875 mls/ hr TITRATE IV Last administered on 12/07/18 13:25; Admin Dose 56.25 MLS/HR; Start 12/06/18 at 13:00 Atropine Sulfate (Atropine (Syringe)) 1 mg PRN PRN IV prn Last administered on 12/06/18 16:49; Admin Dose 1 MG; Start 12/06/18 at 16:00 Propofol 100 ml @ 3.045 mls/ hr Q12H IV Last administered on 12/07/18 02:24; Admin Dose 24.36 MLS/HR; Start 12/06/18 at 16:30 Midazolam HCl 50 ml @ 1 mls/hr TITRATE IV Last administered on 12/09/18 05:09; Admin Dose 4 MLS/HR; Start 12/06/18 at 16:30 Vancomycin HCl (Vanco Iv Per Pharmacy) VANCOMYCIN PER PHARMACY PER PROTOCOL XX ; Start 12/06/18 at 17:30 Cefepime HCl 50 ml @ 100 mls/hr Q24H IVPB Last administered on 12/09/18 21:11; Admin Dose 100 MLS/HR; Start 12/06/18 at 21:00 Levetiracetam 100 ml @ 400 mls/hr Q12 IVPB Last administered on 12/10/18 08:49; Admin Dose 400 MLS/HR; Start 12/06/18 at 21:00 Dopamine HCl/ Dextrose 250 ml @ 7.613 mls/ hr TITRATE IV Last administered on 12/09/18 03:03; Admin Dose 11.419 MLS/HR; Start 12/06/18 at 17:30 Acetaminophen (Tylenol Supp) 650 mg Q4H PRN [place] TEMP > 37C; Start 12/06/18 at 18:30 Acetaminophen (Tylenol Liquid) 650 mg Q4H PRN PO TEMP > 37C; Start 12/06/18 at 18:30 Meperidine HCl (Demerol) 12.5 mg Q4H PRN IV POST OPERATIVE SHIVERING; Start 12/06/18 at 18:30 Meperidine HCl (Demerol) 25 mg Q4H PRN IV POST OPERATIVE SHIVERING; Start 12/06/18 at 18:30 Eye Lubricant (Akwa Oint) 1 applic Q6 BOTH EYES Last administered on 12/10/18 12:22; Admin Dose 1 APPLIC; Start 12/07/18 at 00:00 Eye Lubricant (Artificial Tears Oph) 2 drop Q6 BOTH EYES Last administered on 12/10/18 12:22; Admin Dose 2 DROP; Start 12/07/18 at 00:00 Magnesium Sulfate 50 ml @ 25 mls/hr PRN PRN IVPB IV PROTOCOL; Start 12/06/18 at 20:30 Potassium Chloride 50 ml @ 25 mls/hr PRN PRN IVPB IV PROTOCOL Last administered on 12/07/18 08:33; Admin Dose 25 MLS/HR; Start 12/06/18 at 20:30 Heparin Sodium (Porcine) (Heparin (1000 Units/ml)) 4,000 unit AFTER DIALYSIS CATHETER ; Start 12/06/18 at 22:00 Albumin Human 100 ml @ 100 mls/hr WITH DIALYSIS PRN IV SBP <90 DURING DIALYSIS; Start 12/06/18 at 22:00 Sodium Chloride (NS) -To prime the dialy... DIRECTED FOR HD PRN IV HD; Start 12/06/18 at 22:00 Phenytoin 200 mg/ Sodium Chloride 54 ml @ 112 mls/hr AM IV Last administered on 12/10/18 08:49; Admin Dose 112 MLS/HR; Start 12/07/18 at 09:00 Phenytoin 200 mg/ Sodium Chloride 54 ml @ 112 mls/hr PC LUNCH IV Last administered on 12/10/18 12:18; Admin Dose 112 MLS/HR; Start 12/07/18 at 12:30 Phenytoin 300 mg/ Sodium Chloride 56 ml @ 112 mls/hr 2100 IV Last administered on 12/09/18 21:11; Admin Dose 112 MLS/HR; Start 12/07/18 at 21:00 Pantoprazole (Protonix Iv) 40 mg DAILY@06 IV Last administered on 12/10/18at 05:56; Admin Dose 40 MG; Start 12/07/18 at 06:00 Fentanyl 100 ml @ 2.5 mls/hr TITRATE IV Last administered on 12/08/18at 06:27; Admin Dose 2.5 MLS/HR; Start 12/08/18 at 06:30 Diagnostic Test (Pha) (Accu-Chek) 1 ea 02 XX Last administered on 12/10/18at 02:38; Admin Dose 1 EA; Start 12/09/18 at 02:00 Miscellaneous Information 1 ea NOTE XX ; Start 12/08/18 at 11:30 Glucose (Glutose) 15 gm Q15M PRN PO DECREASED GLUCOSE; Start 12/08/18 at 11:30 Glucose (Glutose) 22.5 gm Q15M PRN PO DECREASED GLUCOSE; Start 12/08/18 at 11:30 Dextrose (D50w Syringe) 25 ml Q15M PRN IV DECREASED GLUCOSE; Start 12/08/18 at 11:30 Dextrose (D50w Syringe) 50 ml Q15M PRN IV DECREASED GLUCOSE; Start 12/08/18 at 11:30 Glucagon (Glucagen) 1 mg Q15M PRN IM DECREASED GLUCOSE; Start 12/08/18 at 11:30 Glucose (Glutose) 15 gm Q15M PRN BUCCAL DECREASED GLUCOSE; Start 12/08/18 at 11:30 Collagenase (Santyl) 1 applic DAILY TOP Last administered on 12/10/18at 08:10; Admin Dose 1 APPLIC; Start 12/10/18 at 09:00 Insulin Aspart (Novolog Insulin Pen) NOVOLOG *MILD* ALGORI... Q6 SC ; Start 12/10/18 at 12:00 VTE Prophylaxis Risk score (from Nsg)>0 risk: 7 SCD applied (from Nsg): Yes Lines/Catheters IV Catheter Type: Simpson in Place: Yes Cont'd simpson catheter reason: terminal illness/intractable pain Assessment/Plan Hospital Course Subjective Patient still intubated, off sedation Objective Physical exam General: Patient is intubated Mentation: Patient is intubated but no purposeful movement Head: Normocephalic atraumatic Eyes: EOMI, left pupil is alfredo out chronically Neck: Supple, nontender, midline Respiratory: Coarse to auscultation bilaterally Cardiovascular: Tachycardic rate, no obvious murmurs Gastrointestinal: non-tender to palpation, bowel sounds heard. Neurological: No purposeful movement, occasional cough Skin: No new skin lesions Assessment/Plan 1. S/p Cardiac arrest with ROSC - Patient is currently finished with hypothermia protocol and off sedation and will continue monitoring neurological status - Patient initially with NSVT and given prolonged QT and placement on Amiodarone went into torsades then coded. Patient coded another 3 times total secondary to PEA arrest with ROSC - Cardiology on board and appreciate recommendations. Continue on Dopamine. may need? Cardiac cath if patient recovers - trops remain negative indicating non ischemic etiology for arrest Staph bacteremia -IV antibiotic -Infectious disease consulted Anemia -Very mild, no obvious source of bleeding however may be secondary to a combi nation of hemodilution as well as frequent IV blood draws -Patient is likely iron deficient and reticulocyte count shows evidence of hypo- proliferation -Liver panel pending to help direct possible hemolysis -Transfuse as needed Thrombocytopenia -Mild to moderate, monitor closely no obvious signs of bleeding Chronic blindness -Chronic left-sided blindness secondary to diabetic retinopathy, patient also has moderate to severe right-sided blindness secondary to diabetic retinopathy ?Arrhythmia, NSVT - Patient has ? afib and may have had afib with aberrancy but initial event was not captured - EKG showing prolonged QT - noted on Coumadin on med rec but INR normal at time of presentation. Will need to touch base with fam vs patient when she recovers on why she takes Coumadin Cardiogenic shock -Resolving, off pressors at this time 4. Sepsis - likely aspiration and now bacteremic given multiple cardiac arrest episodes. CXR from this am still pending - snider cultures drawn and continue on current broad antibiotics - LA normalized 5. Hypokalemia - replacing 6. DM -Insulin drip changed to sliding scale - A1c noted and uncontrolled - discussed with family need for better glucose control after discharge 7. ESRD on HD - Nephrology,Dr. Reddy, on board and appreciate consultation. T/T/S scheduled 8. h/o CVA - continue current medications 9. HTN - currently requiring pressor support 10. Disposition -Monitor off sedation as tolerated. Assess for neurological recovery - Palliative on board. Family would like patient to remain full code for now >40 minutes of critical care time spent with patient and family at bedside BOZENA PARK Dec 10, 2018 12:43
--- NOTE | 2018-12-10 14:04 | CONS ---
Assessment/Plan Assessment/Plan Hospital Course (Demo Recall) No events overnight patient is noncommunicative comfortable on vent, no fevers. WBC 9.7 H&H 7.8 and 26.3 platelets 102 neutrophils 85.5 Chest x-ray revealed increased combination interstitial edema and alveolar infiltrates throughout both lungs. Increased moderate right-sided pleural effusion. Indwelling: Upper extremity AV fistula, endotracheal tube, orogastric tube, left IJ central lines, femoral triple-lumen catheter Microbiology: Blood culture on December 06 grew oxacillin sensitive staph aureus, repeat blood cultures negative, urine culture negative Antimicrobials: Vancomycin cefepime Physical examination: Obese chronically ill-appearing middle-aged woman who is noncommunicative intubated in no distress. Head atraumatic normocephalic neck is obese chest rise symmetrical breath sounds diminished bases heart S1-S2 abdomen obese soft bowel sounds hypoactive extremities with trace edema Assessment: 1. Severe sepsis status post shock 2. Bilateral pneumonia 3. Oxacillin sensitive staph aureus bacteremia 4. Status post cardiac arrest with hypothermia protocol 5. Diabetes 6. Seizure disorder 7. End-stage renal disease, hemodialysis dependent 8. Cardiomyopathy with ejection fraction of 35% Plan: Remains stable, pending sputum culture, continue antibiotics, plan for head CT Consultation Date/Type/Reason Admit Date/Time Dec 06, 2018 at 12:45 Initial Consult Date 12/06/18 Type of Consult id Requesting Provider: BOZENA PARK Date/Time of Note DATE: 12/10/18 TIME: 14:03 Exam/Review of Systems Exam Vitals Vital Signs Date Temp Pulse Resp B/P (MAP) Pulse Ox O2 O2 Flow FiO2 Time Delivery Rate 12/10/18 74 25 138/71 100 Mechanical 13:00 (93) Ventilator 12/10/18 30 12:00 12/10/18 98.5 12:00 12/06/18 4.0 11:00 Intake and Output 12/09/18 12/09/18 12/10/18 1515:00 23:00 07:00 IntakeIntake Total 365.507 ml 256 ml 0 ml OutputOutput Total 3400 ml 0 ml 10 ml BalanceBalance -3034.493 ml 256 ml -10 ml Results Result Diagram: 12/10/18 0426 12/10/18 0426 Results 24hrs Laboratory Tests Test 12/09/18 17:20 12/09/18 21:00 12/10/18 00:01 12/10/18 02:31 Bedside Glucose 112 108 100 109 Test 12/10/18 04:00 12/10/18 04:05 12/10/18 04:26 12/10/18 08:56 Bedside Glucose 108 107 Lactate 654 H Dehydrogenase White Blood Count 9.7 # Red Blood Count 2.63 L Hemoglobin 7.8 L Hematocrit 26.3 L Mean Corpuscular 100.0 Volume Mean Corpuscular 29.7 Hemoglobin Mean Corpuscular 29.7 L Hemoglobin Concent Red Cell 14.8 H Distribution Width Platelet Count 102 L Mean Platelet Volume 11.5 H Immature 0.600 H Granulocytes % Neutrophils % 85.5 H Lymphocytes % 6.4 L Monocytes % 7.1 Eosinophils % 0.2 Basophils % 0.2 Nucleated Red Blood 0.0 Cells % Immature 0.060 H Granulocytes # Neutrophils # 8.3 H Lymphocytes # 0.6 L Monocytes # 0.7 Eosinophils # 0.0 Basophils # 0.0 Nucleated Red Blood 0.0 Cells # Sodium Level 143 Potassium Level 4.6 Chloride Level 97 Carbon Dioxide Level 30 Anion Gap 16 H Blood Urea Nitrogen 27 H Creatinine 4.61 #H Est Glomerular 10 L Filtrat Rate mL/min Glucose Level 105 Calcium Level 9.3 Phosphorus Level 4.9 Magnesium Level 2.2 Test 12/10/18 12:16 12/10/18 12:21 Ammonia < 9 L Bedside Glucose 117 Medications Medication Current Medications Ondansetron HCl (Zofran Inj) 4 mg Q6H PRN IV NAUSEA AND/OR VOMITING; Start 12/06/18 at 09:30 Albuterol (Proventil 0.083% (Neb)) 2.5 mg Q2H RESP THERAPY PRN NEB SHORTNESS OF BREATH; Start 12/06/18 at 09:30 Acetaminophen (Tylenol Tab) 650 mg Q6H PRN PO PAIN LEVEL 1-3 OR FEVER; Start 12/06/18 at 09:30 Docusate Sodium (Colace) 100 mg Q12H PRN PO CONSTIPATION; Start 12/06/18 at 09:30 Magnesium Hydroxide (Milk Of Mag) 30 ml DAILY PRN PO CONSTIPATION; Start 12/06/18 at 09:30 Aspirin (Aspirin) 81 mg DAILY PO Last administered on 12/10/18at 08:38; Admin Dose 81 MG; Start 12/06/18 at 10:30 Brimonidine Tartrate (Alphagan 0.2%) 1 drop DAILY BOTH EYES Last administered on 12/10/18 08:39; Admin Dose 1 DROP; Start 12/06/18 at 11:00 Calcium Acetate (Phoslo) 667 mg WITH MEALS PO ; Start 12/06/18 at 12:00 Docusate Sodium (Colace) 200 mg DAILY PO ; Start 12/06/18 at 10:30; Status Hold Lactulose (Enulose) 20 gm BID PO Last administered on 12/10/18 08:38; Admin Dose 20 GM; Start 12/06/18 at 21:00 Montelukast Sodium (Singulair) 10 mg HS PO ; Start 12/06/18 at 21:00; Status Hold Multivit/Ca Carb/ B Cmplx/FA/Prenat (Mariaelena-Rosas) 1 tab DAILY PO Last administered on 12/10/18 08:38; Admin Dose 1 TAB; Start 12/06/18 at 10:30 Norepinephrine 250 ml @ 1.875 mls/ hr TITRATE IV Last administered on 12/07/18 13:25; Admin Dose 56.25 MLS/HR; Start 12/06/18 at 13:00 Atropine Sulfate (Atropine (Syringe)) 1 mg PRN PRN IV prn Last administered on 12/06/18 16:49; Admin Dose 1 MG; Start 12/06/18 at 16:00 Propofol 100 ml @ 3.045 mls/ hr Q12H IV Last administered on 12/07/18 02:24; Admin Dose 24.36 MLS/HR; Start 12/06/18 at 16:30 Midazolam HCl 50 ml @ 1 mls/hr TITRATE IV Last administered on 12/09/18 05:09; Admin Dose 4 MLS/HR; Start 12/06/18 at 16:30 Vancomycin HCl (Vanco Iv Per Pharmacy) VANCOMYCIN PER PHARMACY PER PROTOCOL XX ; Start 12/06/18 at 17:30 Cefepime HCl 50 ml @ 100 mls/hr Q24H IVPB Last administered on 12/09/18at 21:11; Admin Dose 100 MLS/HR; Start 12/06/18 at 21:00 Levetiracetam 100 ml @ 400 mls/hr Q12 IVPB Last administered on 12/10/18 08:49; Admin Dose 400 MLS/HR; Start 12/06/18 at 21:00 Dopamine HCl/ Dextrose 250 ml @ 7.613 mls/ hr TITRATE IV Last administered on 12/09/18 03:03; Admin Dose 11.419 MLS/HR; Start 12/06/18 at 17:30 Acetaminophen (Tylenol Supp) 650 mg Q4H PRN ID TEMP > 37C; Start 12/06/18 at 18:30 Acetaminophen (Tylenol Liquid) 650 mg Q4H PRN PO TEMP > 37C; Start 12/06/18 at 18:30 Meperidine HCl (Demerol) 12.5 mg Q4H PRN IV POST OPERATIVE SHIVERING; Start 12/06/18 at 18:30 Meperidine HCl (Demerol) 25 mg Q4H PRN IV POST OPERATIVE SHIVERING; Start 12/06/18 at 18:30 Eye Lubricant (Akwa Oint) 1 applic Q6 BOTH EYES Last administered on 12/10/18 12:22; Admin Dose 1 APPLIC; Start 12/07/18 at 00:00 Eye Lubricant (Artificial Tears Oph) 2 drop Q6 BOTH EYES Last administered on 12/10/18 12:22; Admin Dose 2 DROP; Start 12/07/18 at 00:00 Magnesium Sulfate 50 ml @ 25 mls/hr PRN PRN IVPB IV PROTOCOL; Start 12/06/18 at 20:30 Potassium Chloride 50 ml @ 25 mls/hr PRN PRN IVPB IV PROTOCOL Last administered on 12/07/18 08:33; Admin Dose 25 MLS/HR; Start 12/06/18 at 20:30 Heparin Sodium (Porcine) (Heparin (1000 Units/ml)) 4,000 unit AFTER DIALYSIS CATHETER ; Start 12/06/18 at 22:00 Albumin Human 100 ml @ 100 mls/hr WITH DIALYSIS PRN IV SBP <90 DURING DIALYSIS; Start 12/06/18 at 22:00 Sodium Chloride (NS) -To prime the dialy... DIRECTED FOR HD PRN IV HD; Start 12/06/18 at 22:00 Phenytoin 200 mg/ Sodium Chloride 54 ml @ 112 mls/hr AM IV Last administered o n 4/10/19at 08:49; Admin Dose 112 MLS/HR; Start 12/07/18 at 09:00 Phenytoin 200 mg/ Sodium Chloride 54 ml @ 112 mls/hr PC LUNCH IV Last administered on 12/10/18at 12:18; Admin Dose 112 MLS/HR; Start 12/07/18 at 12:30 Phenytoin 300 mg/ Sodium Chloride 56 ml @ 112 mls/hr 2100 IV Last administered on 12/09/18at 21:11; Admin Dose 112 MLS/HR; Start 12/07/18 at 21:00 Pantoprazole (Protonix Iv) 40 mg DAILY@06 IV Last administered on 12/10/18at 05:56; Admin Dose 40 MG; Start 12/07/18 at 06:00 Fentanyl 100 ml @ 2.5 mls/hr TITRATE IV Last administered on 12/08/18at 06:27; Admin Dose 2.5 MLS/HR; Start 12/08/18 at 06:30 Diagnostic Test (Pha) (Accu-Chek) 1 ea 02 XX Last administered on 12/10/18at 02:38; Admin Dose 1 EA; Start 12/09/18 at 02:00 Miscellaneous Information 1 ea NOTE XX ; Start 12/08/18 at 11:30 Glucose (Glutose) 15 gm Q15M PRN PO DECREASED GLUCOSE; Start 12/08/18 at 11:30 Glucose (Glutose) 22.5 gm Q15M PRN PO DECREASED GLUCOSE; Start 12/08/18 at 11:30 Dextrose (D50w Syringe) 25 ml Q15M PRN IV DECREASED GLUCOSE; Start 12/08/18 at 11:30 Dextrose (D50w Syringe) 50 ml Q15M PRN IV DECREASED GLUCOSE; Start 12/08/18 at 11:30 Glucagon (Glucagen) 1 mg Q15M PRN IM DECREASED GLUCOSE; Start 12/08/18 at 11:30 Glucose (Glutose) 15 gm Q15M PRN BUCCAL DECREASED GLUCOSE; Start 12/08/18 at 11:30 Collagenase (Santyl) 1 applic DAILY TOP Last administered on 12/10/18at 08:10; Admin Dose 1 APPLIC; Start 12/10/18 at 09:00 Insulin Aspart (Novolog Insulin Pen) NOVOLOG *MILD* ALGORI... Q6 SC ; Start 4/10/19 at 12:00 LEWIS PERALES NP Dec 10, 2018 14:04
[2018-12-10] MEDS: CEFEPIME 1GM/50 ML (PMX) 50 ML IVPB SCH (20:36)
[2018-12-10] MEDS: PHENYTOIN 300 MG in SOD CHLORIDE 0.9% 50 ML IV SCH (21:04)
[2018-12-11] VITALS (62 sets, daily range): BP systolic 85–152; BP diastolic 45–89; PULSE 76–93; RESP 11–34
[2018-12-11] MEDS: OCULAR LUBRICANT 3.5 GM OPH OINT BOTH EYES SCH ×4 (00:04→17:43)
[2018-12-11] MEDS: ARTIFICIAL TEARS 15 ML OPH BOTH EYES SCH ×4 (00:04→17:43)
[2018-12-11] MEDS: ACCU-CHEK XX SCH ×4 (02:00→21:02)
[2018-12-11] MEDS: PROPOFOL 100 ML IV SCH ×2 (04:30→13:24)
[2018-12-11] MEDS: PANTOPRAZOLE 40 MG INJ IV SCH (05:09)
[2018-12-11] MEDS: INSULIN ASPART [NOVOLOG] 3 ML PEN SC SCH ×4 (05:16→17:44)
[2018-12-11] MEDS: CALCIUM ACETATE 667 MG CAP PO SCH ×3 (06:35→17:22)
[2018-12-11] MEDS: ASPIRIN 81 MG TAB PO SCH (08:00)
[2018-12-11] MEDS: LACTULOSE 30ML CUP PO SCH ×2 (08:00→21:00)
[2018-12-11] MEDS: MULTIVIT/CA CARB/B CMPLX/FA TAB PO SCH (08:00)
[2018-12-11] MEDS: COLLAGENASE 5 GM (UD JAR) TOP SCH (08:01)
[2018-12-11] MEDS: LEVETIRACETAM 500 MG (PMX) 100 ML IVPB SCH ×2 (08:01→21:01)
[2018-12-11] MEDS: BRIMONIDINE 0.2% 5 ML BTL BOTH EYES SCH (08:01)
--- NOTE | 2018-12-11 08:38 | CONS ---
Assessment/Plan Assessment/Plan Assessment/Plan (Daily) Ventilator setting; AC of 12, tidal volume 400, PEEP of 5, 30% FiO2. Assessment and recommendations; 1. Patient status post cardiac arrest status post hypothermia protocol with persistently poor mental status, possibly due to chronic renal failure patient on hemodialysis. 2. Bilateral pneumonia more pronounced in right lung. Currently on appropriate antimicrobial regimen. 3. History of for his bacteremia, most recent cultures from seventh of this month are negative. 4. Anemia and thrombocytopenia. 5. Stable seizure disorder. 6. History of diabetes. Continue current supportive care. Start TPN. Obtain follow-up chest x-ray 24 hours. I did have a detailed discussion with the patient's sister at bedside and answered all her questions. Prognosis is guarded. 35 minutes of critical care time was spent evaluating the patient. Consultation Date/Type/Reason Admit Date/Time Dec 06, 2018 at 12:45 Initial Consult Date 12/06/18 Type of Consult Pulmonary/critical care Requesting Provider: BOZENA PARK Date/Time of Note DATE: 12/11/18 TIME: 08:35 24 HR Interval Summary Free Text/Dictation Patient's condition remains critical. Remains profoundly unresponsive. Patient however has remained hemodynamically stable. General exam; young female, orally intubated, unresponsive, currently in no distress. Exam/Review of Systems Exam Vitals Vital Signs Date Temp Pulse Resp B/P (MAP) Pulse Ox O2 O2 Flow FiO2 Time Delivery Rate 12/11/18 101.0 07:59 12/11/18 84 22 151/69 100 [place] 06:00 (96) l Ventilato r 12/11/18 30 04:39 Intake and Output 12/10/18 12/10/18 12/11/18 1515:00 23:00 07:00 IntakeIntake Total 366 ml 3206 ml 300 ml OutputOutput Total 300 ml 6100 ml 300 ml BalanceBalance 66 ml -2894 ml 0 ml Exam H EENT exam; supple neck, positive JVD. No lymphadenopathy. Midline trachea. No thyromegaly. Patient has a left corneal opacity. Patient has multiple carious teeth. No neck masses. Orally intubated. Chest exam; diminished breath sounds bilaterally. S1-S2 audible, no murmurs. Regular rhythm. Abdomen exam; soft, protuberant. Bowel sounds are very sluggish. No organomegaly felt. Extremity exam; trace edema in upper extremities. [employer] exam; patient remains unresponsive. Results Result Diagram: 12/11/18 0501 12/11/18 0501 Results 24hrs Laboratory Tests Test 12/10/18 08:56 12/10/18 12:16 12/10/18 12:21 12/10/18 18:13 Bedside Glucose 107 117 106 Ammonia < 9 L Test 12/10/18 18:54 12/11/18 00:02 12/11/18 05:01 12/11/18 05:16 Hemoglobin 8.2 L 7.6 L Hematocrit 27.0 L 25.9 L Bedside Glucose 114 130 White Blood Count 9.7 Red Blood Count 2.54 L Mean Corpuscular 102.0 H Volume Mean Corpuscular 29.9 Hemoglobin Mean Corpuscular 29.3 L Hemoglobin Concent Red Cell 14.8 H Distribution Width Platelet Count 115 L Mean Platelet Volume 10.7 H Immature 0.900 H Granulocytes % Neutrophils % 84.5 H Lymphocytes % 6.0 L Monocytes % 8.3 Eosinophils % 0.1 Basophils % 0.2 Nucleated Red Blood 0.0 Cells % Immature 0.090 H Granulocytes # Neutrophils # 8.2 H Lymphocytes # 0.6 L Monocytes # 0.8 Eosinophils # 0.0 Basophils # 0.0 Nucleated Red Blood 0.0 Cells # Sodium Level 142 Potassium Level 4.4 Chloride Level 98 Carbon Dioxide Level 27 Anion Gap 17 H Blood Urea Nitrogen 20 Creatinine 3.54 #H Est Glomerular 14 L Filtrat Rate mL/min Glucose Level 119 Calcium Level 9.4 Phosphorus Level 3.5 Magnesium Level 2.2 Total Bilirubin 0.1 L Direct Bilirubin 0.00 Indirect Bilirubin 0.1 Aspartate Amino 43 Transf (AST/SGOT) Alanine 43 Aminotransferase (AL T/SGPT) Alkaline Phosphatase 101 Total Protein 7.2 Albumin 4.1 Medications Medication Current Medications Ondansetron HCl (Zofran Inj) 4 mg Q6H PRN IV NAUSEA AND/OR VOMITING; Start 12/06/18 at 09:30 Albuterol (Proventil 0.083% (Neb)) 2.5 mg Q2H RESP THERAPY PRN NEB SHORTNESS OF BREATH; Start 12/06/18 at 09:30 Acetaminophen (Tylenol Tab) 650 mg Q6H PRN PO PAIN LEVEL 1-3 OR FEVER; Start 12/06/18 at 09:30 Docusate Sodium (Colace) 100 mg Q12H PRN PO CONSTIPATION; Start 12/06/18 at 09:30 Magnesium Hydroxide (Milk Of Mag) 30 ml DAILY PRN PO CONSTIPATION; Start 12/06/18 at 09:30 Aspirin (Aspirin) 81 mg DAILY PO Last administered on 12/11/18 08:00; Admin Dose 81 MG; Start 12/06/18 at 10:30 Brimonidine Tartrate (Alphagan 0.2%) 1 drop DAILY BOTH EYES Last administered on 12/11/18 08:01; Admin Dose 1 DROP; Start 12/06/18 at 11:00 Calcium Acetate (Phoslo) 667 mg WITH MEALS PO ; Start 12/06/18 at 12:00 Docusate Sodium (Colace) 200 mg DAILY PO ; Start 12/06/18 at 10:30; Status Hold Lactulose (Enulose) 20 gm BID PO Last administered on 12/11/18 08:00; Admin Dose 20 GM; Start 12/06/18 at 21:00 Montelukast Sodium (Singulair) 10 mg HS PO ; Start 12/06/18 at 21:00; Status Hold Multivit/Ca Carb/ B Cmplx/FA/Prenat (Mariaelena-Rosas) 1 tab DAILY PO Last administered on 12/11/18 08:00; Admin Dose 1 TAB; Start 12/06/18 at 10:30 Norepinephrine 250 ml @ 1.875 mls/ hr TITRATE IV Last administered on 12/07/18 13:25; Admin Dose 56.25 MLS/HR; Start 12/06/18 at 13:00 Atropine Sulfate (Atropine (Syringe)) 1 mg PRN PRN IV prn Last administered on 12/06/18 16:49; Admin Dose 1 MG; Start 12/06/18 at 16:00 Propofol 100 ml @ 3.045 mls/ hr Q12H IV Last administered on 12/07/18 02:24; Admin Dose 24.36 MLS/HR; Start 12/06/18 at 16:30 Midazolam HCl 50 ml @ 1 mls/hr TITRATE IV Last administered on 12/09/18 05:09; Admin Dose 4 MLS/HR; Start 12/06/18 at 16:30 Vancomycin HCl (Vanco Iv Per Pharmacy) VANCOMYCIN PER PHARMACY PER PROTOCOL XX ; Start 12/06/18 at 17:30 Cefepime HCl 50 ml @ 100 mls/hr Q24H IVPB Last administered on 12/10/18at 20:36; Admin Dose 100 MLS/HR; Start 12/06/18 at 21:00 Levetiracetam 100 ml @ 400 mls/hr Q12 IVPB Last administered on 12/11/18at 08:01; Admin Dose 400 MLS/HR; Start 12/06/18 at 21:00 Dopamine HCl/ Dextrose 250 ml @ 7.613 mls/ hr TITRATE IV Last administered on 12/09/18at 03:03; Admin Dose 11.419 MLS/HR; Start 12/06/18 at 17:30 Acetaminophen (Tylenol Supp) 650 mg Q4H PRN MA TEMP > 37C; Start 12/06/18 at 18:30 Acetaminophen (Tylenol Liquid) 650 mg Q4H PRN PO TEMP > 37C Last administered on 12/11/18at 07:59; Admin Dose 650 MG; Start 12/06/18 at 18:30 Meperidine HCl (Demerol) 12.5 mg Q4H PRN IV POST OPERATIVE SHIVERING; Start 12/06/18 at 18:30 Meperidine HCl (Demerol) 25 mg Q4H PRN IV POST OPERATIVE SHIVERING; Start 12/06/18 at 18:30 Eye Lubricant (Akwa Oint) 1 applic Q6 BOTH EYES Last administered on 12/11/18at 05:10; Admin Dose 1 APPLIC; Start 12/07/18 at 00:00 Eye Lubricant (Artificial Tears Oph) 2 drop Q6 BOTH EYES Last administered on 12/11/18at 05:10; Admin Dose 2 DROP; Start 12/07/18 at 00:00 Magnesium Sulfate 50 ml @ 25 mls/hr PRN PRN IVPB IV PROTOCOL; Start 12/06/18 at 20:30 Potassium Chloride 50 ml @ 25 mls/hr PRN PRN IVPB IV PROTOCOL Last administered on 12/07/18at 08:33; Admin Dose 25 MLS/HR; Start 12/06/18 at 20:30 Heparin Sodium (Porcine) (Heparin (1000 Units/ml)) 4,000 unit AFTER DIALYSIS CATHETER ; Start 12/06/18 at 22:00 Albumin Human 100 ml @ 100 mls/hr WITH DIALYSIS PRN IV SBP <90 DURING DIALYSIS; Start 12/06/18 at 22:00 Sodium Chloride (NS) -To prime the dialy... DIRECTED FOR HD PRN IV HD; Start 12/06/18 at 22:00 Phenytoin 200 mg/ Sodium Chloride 54 ml @ 112 mls/hr AM IV Last administered on 12/10/18at 08:49; Admin Dose 112 MLS/HR; Start 12/07/18 at 09:00 Phenytoin 200 mg/ Sodium Chloride 54 ml @ 112 mls/hr PC LUNCH IV Last administered on 12/10/18at 12:18; Admin Dose 112 MLS/HR; Start 12/07/18 at 12:30 Phenytoin 300 mg/ Sodium Chloride 56 ml @ 112 mls/hr 2100 IV Last administered on 12/10/18at 21:04; Admin Dose 112 MLS/HR; Start 12/07/18 at 21:00 Pantoprazole (Protonix Iv) 40 mg DAILY@06 IV Last administered on 12/11/18at 05:09; Admin Dose 40 MG; Start 12/07/18 at 06:00 Fentanyl 100 ml @ 2.5 mls/hr TITRATE IV Last administered on 12/08/18at 06:27; Admin Dose 2.5 MLS/HR; Start 12/08/18 at 06:30 Diagnostic Test (Pha) (Accu-Chek) 1 ea 02 XX Last administered on 12/10/18at 02:38; Admin Dose 1 EA; Start 12/09/18 at 02:00 Miscellaneous Information 1 ea NOTE XX ; Start 12/08/18 at 11:30 Glucose (Glutose) 15 gm Q15M PRN PO DECREASED GLUCOSE; Start 12/08/18 at 11:30 Glucose (Glutose) 22.5 gm Q15M PRN PO DECREASED GLUCOSE; Start 12/08/18 at 11:30 Dextrose (D50w Syringe) 25 ml Q15M PRN IV DECREASED GLUCOSE; Start 12/08/18 at 11:30 Dextrose (D50w Syringe) 50 ml Q15M PRN IV DECREASED GLUCOSE; Start 12/08/18 at 11:30 Glucagon (Glucagen) 1 mg Q15M PRN IM DECREASED GLUCOSE; Start 12/08/18 at 11:30 Glucose (Glutose) 15 gm Q15M PRN BUCCAL DECREASED GLUCOSE; Start 12/08/18 at 11:30 Collagenase (Santyl) 1 applic DAILY TOP Last administered on 12/11/18at 08:01; Admin Dose 1 APPLIC; Start 12/10/18 at 09:00 Insulin Aspart (Novolog Insulin Pen) NOVOLOG *MILD* ALGORI... Q6 SC ; Start 12/10/18 at 12:00 DINESH SAVAGE Dec 11, 2018 08:38
--- NOTE | 2018-12-11 09:06 | CONS ---
Assessment/Plan Assessment/Plan Hospital Course (Demo Recall) s/p cardiac arrest:First event was torsades in setting of prolonged QT caused by amiodarone. Subsequent PEA events. Trops negative and no ischemic EKG changes. Had a bradycardic arrest as well which may have been metabolic or related to lidocaine. No further arrhythmias and seems to be stabilizing. EF is 35% and there is significant RV dysfunction and likely underlying severe pulm HTN which cannot be assessed accurately by echo. If she recovers she will need a cardiac cath for evaluation. Staph aureus bacteremia so may all have been sepsis related Shock: Septic with bacteremia. Off pressors Staph aureus bacteremia: ?from decubs Torsades: due to amiodarone induced prolonged QTc. Now resolved Prolonged QT: due to amiodarone. Improved Cardiomyopathy: EF 35% RV dysfunction: doubt acute PE but maybe long standing pulm HTN NSVT: Unfortunately the tele bed in the ER that she was in did not record arrhythmias. Per ER MD she had 10-12 beats runs. Acute on chronic systolic CHF: EF 35%. Decompensated on exam HTN : BP initially recorded in the 120s, then >200. Now off dopamine ?Paroxysmal afib: Coumadin is on her med list but INR was normal on admission. With h/o stroke, presumably she had afib in the past. ESRD on HD DM CVA with left weakness -start coreg 6.25mg BID -antibiotics Consultation Date/Type/Reason Admit Date/Time Dec 06, 2018 at 12:45 Initial Consult Date 12/06/18 Type of Consult Cardiology Requesting Provider: BOZENA PARK Date/Time of Note DATE: 12/11/18 TIME: 09:04 24 HR Interval Summary Free Text/Dictation Had hematuria and required CBI overnight. Now resolved. Still not waking up. Exam/Review of Systems Vital Signs Vitals Vital Signs Date Temp Pulse Resp B/P (MAP) Pulse Ox O2 O2 Flow FiO2 Time Delivery Rate 12/11/18 99.7 08:44 12/11/18 87 08:00 12/11/18 22 151/69 100 Mechanical 06:00 (96) Ventilator 12/11/18 30 04:39 Intake and Output 12/10/18 12/10/18 12/11/18 1515:00 23:00 07:00 IntakeIntake Total 366 ml 3206 ml 300 ml OutputOutput Total 300 ml 6100 ml 300 ml BalanceBalance 66 ml -2894 ml 0 ml Exam Constitutional: No alert, No oriented ENMT: intubated Neck: supple; No jvd (unable to assess) Respiratory: diminished breath sounds; No clear to auscultation Cardiovascular: edema (1+) Gastrointestinal: soft; No distended Musculoskeletal: No nl extremities to inspection Neurological: No nl mental status, No nl speech Labs Result Diagram: 12/11/18 0501 12/11/18 0501 Results 24hrs Laboratory Tests Test 12/10/18 12:16 12/10/18 12:21 12/10/18 18:13 12/10/18 18:54 Ammonia < 9 L Bedside Glucose 117 106 Hemoglobin 8.2 L Hematocrit 27.0 L Test 12/11/18 00:02 12/11/18 05:01 12/11/18 05:16 Bedside Glucose 114 130 White Blood Count 9.7 Red Blood Count 2.54 L Hemoglobin 7.6 L Hematocrit 25.9 L Mean Corpuscular 102.0 H Volume Mean Corpuscular 29.9 Hemoglobin Mean Corpuscular 29.3 L Hemoglobin Concent Red Cell 14.8 H Distribution Width Platelet Count 115 L Mean Platelet Volume 10.7 H Immature 0.900 H Granulocytes % Neutrophils % 84.5 H Lymphocytes % 6.0 L Monocytes % 8.3 Eosinophils % 0.1 Basophils % 0.2 Nucleated Red Blood 0.0 Cells % Immature 0.090 H Granulocytes # Neutrophils # 8.2 H Lymphocytes # 0.6 L Monocytes # 0.8 Eosinophils # 0.0 Basophils # 0.0 Nucleated Red Blood 0.0 Cells # Sodium Level 142 Potassium Level 4.4 Chloride Level 98 Carbon Dioxide Level 27 Anion Gap 17 H Blood Urea Nitrogen 20 Creatinine 3.54 #H Est Glomerular 14 L Filtrat Rate mL/min Glucose Level 119 Calcium Level 9.4 Phosphorus Level 3.5 Magnesium Level 2.2 Total Bilirubin 0.1 L Direct Bilirubin 0.00 Indirect Bilirubin 0.1 Aspartate Amino 43 Transf (AST/SGOT) Alanine 43 Aminotransferase (AL T/SGPT) Alkaline Phosphatase 101 Total Protein 7.2 Albumin 4.1 Medications Medications Current Medications Ondansetron HCl (Zofran Inj) 4 mg Q6H PRN IV NAUSEA AND/OR VOMITING; Start 12/06/18 at 09:30 Albuterol (Proventil 0.083% (Neb)) 2.5 mg Q2H RESP THERAPY PRN NEB SHORTNESS OF BREATH; Start 12/06/18 at 09:30 Acetaminophen (Tylenol Tab) 650 mg Q6H PRN PO PAIN LEVEL 1-3 OR FEVER; Start 12/06/18 at 09:30 Docusate Sodium (Colace) 100 mg Q12H PRN PO CONSTIPATION; Start 12/06/18 at 09:30 Magnesium Hydroxide (Milk Of Mag) 30 ml DAILY PRN PO CONSTIPATION; Start 12/06/18 at 09:30 Aspirin (Aspirin) 81 mg DAILY PO Last administered on 12/11/18 08:00; Admin Dose 81 MG; Start 12/06/18 at 10:30 Brimonidine Tartrate (Alphagan 0.2%) 1 drop DAILY BOTH EYES Last administered on 12/11/18 08:01; Admin Dose 1 DROP; Start 12/06/18 at 11:00 Calcium Acetate (Phoslo) 667 mg WITH MEALS PO ; Start 12/06/18 at 12:00 Docusate Sodium (Colace) 200 mg DAILY PO ; Start 12/06/18 at 10:30; Status Hold Lactulose (Enulose) 20 gm BID PO Last administered on 12/11/18 08:00; Admin Dose 20 GM; Start 12/06/18 at 21:00 Montelukast Sodium (Singulair) 10 mg HS PO ; Start 12/06/18 at 21:00; Status Hold Multivit/Ca Carb/ B Cmplx/FA/Prenat (Mariaelena-Rosas) 1 tab DAILY PO Last administered on 12/11/18 08:00; Admin Dose 1 TAB; Start 12/06/18 at 10:30 Norepinephrine 250 ml @ 1.875 mls/ hr TITRATE IV Last administered on 12/07/18 13:25; Admin Dose 56.25 MLS/HR; Start 12/06/18 at 13:00 Atropine Sulfate (Atropine (Syringe)) 1 mg PRN PRN IV prn Last administered on 12/06/18 16:49; Admin Dose 1 MG; Start 12/06/18 at 16:00 Propofol 100 ml @ 3.045 mls/ hr Q12H IV Last administered on 12/07/18 02:24; Admin Dose 24.36 MLS/HR; Start 12/06/18 at 16:30 Midazolam HCl 50 ml @ 1 mls/hr TITRATE IV Last administered on 12/09/18at 05:09; Admin Dose 4 MLS/HR; Start 12/06/18 at 16:30 Vancomycin HCl (Vanco Iv Per Pharmacy) VANCOMYCIN PER PHARMACY PER PROTOCOL XX ; Start 12/06/18 at 17:30 Cefepime HCl 50 ml @ 100 mls/hr Q24H IVPB Last administered on 12/10/18at 20:36; Admin Dose 100 MLS/HR; Start 12/06/18 at 21:00 Levetiracetam 100 ml @ 400 mls/hr Q12 IVPB Last administered on 12/11/18at 08:01; Admin Dose 400 MLS/HR; Start 12/06/18 at 21:00 Dopamine HCl/ Dextrose 250 ml @ 7.613 mls/ hr TITRATE IV Last administered on 12/09/18at 03:03; Admin Dose 11.419 MLS/HR; Start 12/06/18 at 17:30 Acetaminophen (Tylenol Supp) 650 mg Q4H PRN [place] TEMP > 37C; Start 12/06/18 at 18:30 Acetaminophen (Tylenol Liquid) 650 mg Q4H PRN PO TEMP > 37C Last administered on 12/11/18at 07:59; Admin Dose 650 MG; Start 12/06/18 at 18:30 Meperidine HCl (Demerol) 12.5 mg Q4H PRN IV POST OPERATIVE SHIVERING; Start 12/06/18 at 18:30 Meperidine HCl (Demerol) 25 mg Q4H PRN IV POST OPERATIVE SHIVERING; Start 12/06/18 at 18:30 Eye Lubricant (Akwa Oint) 1 applic Q6 BOTH EYES Last administered on 12/11/18at 05:10; Admin Dose 1 APPLIC; Start 12/07/18 at 00:00 Eye Lubricant (Artificial Tears Oph) 2 drop Q6 BOTH EYES Last administered on 12/11/18 05:10; Admin Dose 2 DROP; Start 12/07/18 at 00:00 Magnesium Sulfate 50 ml @ 25 mls/hr PRN PRN IVPB IV PROTOCOL; Start 12/06/18 at 20:30 Potassium Chloride 50 ml @ 25 mls/hr PRN PRN IVPB IV PROTOCOL Last administered on 12/07/18at 08:33; Admin Dose 25 MLS/HR; Start 12/06/18 at 20:30 Heparin Sodium (Porcine) (Heparin (1000 Units/ml)) 4,000 unit AFTER DIALYSIS CATHETER ; Start 12/06/18 at 22:00 Albumin Human 100 ml @ 100 mls/hr WITH DIALYSIS PRN IV SBP <90 DURING DIALYSIS; Start 12/06/18 at 22:00 Sodium Chloride (NS) -To prime the dialy... DIRECTED FOR HD PRN IV HD; Start 12/06/18 at 22:00 Phenytoin 200 mg/ Sodium Chloride 54 ml @ 112 mls/hr AM IV Last administered on 12/10/18at 08:49; Admin Dose 112 MLS/HR; Start 12/07/18 at 09:00 Phenytoin 200 mg/ Sodium Chloride 54 ml @ 112 mls/hr PC LUNCH IV Last administered on 12/10/18at 12:18; Admin Dose 112 MLS/HR; Start 12/07/18 at 12:30 Phenytoin 300 mg/ Sodium Chloride 56 ml @ 112 mls/hr 2100 IV Last administered on 12/10/18at 21:04; Admin Dose 112 MLS/HR; Start 12/07/18 at 21:00 Pantoprazole (Protonix Iv) 40 mg DAILY@06 IV Last administered on 12/11/18at 05:09; Admin Dose 40 MG; Start 12/07/18 at 06:00 Fentanyl 100 ml @ 2.5 mls/hr TITRATE IV Last administered on 12/08/18at 06:27; Admin Dose 2.5 MLS/HR; Start 12/08/18 at 06:30 Diagnostic Test (Pha) (Accu-Chek) 1 ea 02 XX Last administered on 12/10/18at 02:38; Admin Dose 1 EA; Start 12/09/18 at 02:00 Miscellaneous Information 1 ea NOTE XX ; Start 12/08/18 at 11:30 Glucose (Glutose) 15 gm Q15M PRN PO DECREASED GLUCOSE; Start 12/08/18 at 11:30 Glucose (Glutose) 22.5 gm Q15M PRN PO DECREASED GLUCOSE; Start 12/08/18 at 11:30 Dextrose (D50w Syringe) 25 ml Q15M PRN IV DECREASED GLUCOSE; Start 12/08/18 at 11:30 Dextrose (D50w Syringe) 50 ml Q15M PRN IV DECREASED GLUCOSE; Start 12/08/18 at 11:30 Glucagon (Glucagen) 1 mg Q15M PRN IM DECREASED GLUCOSE; Start 12/08/18 at 11:30 Glucose (Glutose) 15 gm Q15M PRN BUCCAL DECREASED GLUCOSE; Start 12/08/18 at 11:30 Collagenase (Santyl) 1 applic DAILY TOP Last administered on 12/11/18at 08:01; Admin Dose 1 APPLIC; Start 12/10/18 at 09:00 Insulin Aspart (Novolog Insulin Pen) NOVOLOG *MILD* ALGORI... Q6 SC ; Start 12/10/18 at 12:00 JJ BRANCH Dec 11, 2018 09:06
--- NOTE | 2018-12-11 09:14 | CONS ---
Assessment/Plan Assessment/Plan Assessment/Plan (Daily) Altered mental status briefly discussed with , prognosis poor Thrombocytopenia NSVT Cardiogenic shock Sepsis syndrome Type 2 diabetes End-stage renal disease on hemodialysis History of CVA Overall prognosis poor patient is full code, will gently introduced him to changing CODE STATUS. I have reviewed Dr. Park's notes Consultation Date/Type/Reason Admit Date/Time Dec 06, 2018 at 12:45 Initial Consult Date 12/06/18 Requesting Provider: BOZENA PARK Date/Time of Note DATE: 12/11/18 TIME: 09:13 24 HR Interval Summary Free Text/Dictation I have been following patient since admission. Basically she status post cardiac arrest status post hypothermia protocol. When I had last seen her she was warming. Since that time she had a very poor mental status possibly related to anoxic injury fluid and electrolyte abnormalities, history of seizure disorder and sepsis syndrome. Comorbid major medical problems include history of morbid obesity diabetes seizure disorder. According to neurological consultation she has preserved brainstem activity. EEG done excludes subclinical seizures brain CT done on 12/10 impressions large bilateral chronic subdural noted with extension and extrinsic compression in the left frontal and temporal parenchymal is seen. No midline shift noted no acute intracranial bleed noted moderate to severe atrophy recommend follow-up MRI if helpful. Per radiologist report. Exam/Review of Systems Exam Vitals Vital Signs Date Temp Pulse Resp B/P (MAP) Pulse Ox O2 O2 Flow FiO2 Time Delivery Rate 12/11/18 99.7 08:44 12/11/18 87 08:00 12/11/18 22 151/69 100 Mechanical 06:00 (96) Ventilator 12/11/18 30 04:39 Intake and Output 12/10/18 12/10/18 12/11/18 1515:00 23:00 07:00 IntakeIntake Total 366 ml 3206 ml 300 ml OutputOutput Total 300 ml 6100 ml 300 ml BalanceBalance 66 ml -2894 ml 0 ml Constitutional: other (Intubated) Head: atraumatic (Atraumatic) ENMT: nl external ears & nose, nl lips & teeth, nl nasal mucosa & septum; No mucosa pink and moist, No intubated, No tympanic membranes, No other Respiratory: congested cough, crackles/rales, intercostal retraction, labored breathing Cardiovascular: regular rate and rhythm, nl pulses Neurological: unresponsive Results Result Diagram: 12/11/18 0501 12/11/18 0501 Results 24hrs Laboratory Tests Test 12/10/18 12:16 12/10/18 12:21 12/10/18 18:13 12/10/18 18:54 Ammonia < 9 L Bedside Glucose 117 106 Hemoglobin 8.2 L Hematocrit 27.0 L Test 12/11/18 00:02 12/11/18 05:01 12/11/18 05:16 Bedside Glucose 114 130 White Blood Count 9.7 Red Blood Count 2.54 L Hemoglobin 7.6 L Hematocrit 25.9 L Mean Corpuscular 102.0 H Volume Mean Corpuscular 29.9 Hemoglobin Mean Corpuscular 29.3 L Hemoglobin Concent Red Cell 14.8 H Distribution Width Platelet Count 115 L Mean Platelet Volume 10.7 H Immature 0.900 H Granulocytes % Neutrophils % 84.5 H Lymphocytes % 6.0 L Monocytes % 8.3 Eosinophils % 0.1 Basophils % 0.2 Nucleated Red Blood 0.0 Cells % Immature 0.090 H Granulocytes # Neutrophils # 8.2 H Lymphocytes # 0.6 L Monocytes # 0.8 Eosinophils # 0.0 Basophils # 0.0 Nucleated Red Blood 0.0 Cells # Sodium Level 142 Potassium Level 4.4 Chloride Level 98 Carbon Dioxide Level 27 Anion Gap 17 H Blood Urea Nitrogen 20 Creatinine 3.54 #H Est Glomerular 14 L Filtrat Rate mL/min Glucose Level 119 Calcium Level 9.4 Phosphorus Level 3.5 Magnesium Level 2.2 Total Bilirubin 0.1 L Direct Bilirubin 0.00 Indirect Bilirubin 0.1 Aspartate Amino 43 Transf (AST/SGOT) Alanine 43 Aminotransferase (AL T/SGPT) Alkaline Phosphatase 101 Total Protein 7.2 Albumin 4.1 Medications Medication Current Medications Ondansetron HCl (Zofran Inj) 4 mg Q6H PRN IV NAUSEA AND/OR VOMITING; Start 12/06/18 at 09:30 Albuterol (Proventil 0.083% (Neb)) 2.5 mg Q2H RESP THERAPY PRN NEB SHORTNESS OF BREATH; Start 12/06/18 at 09:30 Acetaminophen (Tylenol Tab) 650 mg Q6H PRN PO PAIN LEVEL 1-3 OR FEVER; Start 12/06/18 at 09:30 Docusate Sodium (Colace) 100 mg Q12H PRN PO CONSTIPATION; Start 12/06/18 at 09:30 Magnesium Hydroxide (Milk Of Mag) 30 ml DAILY PRN PO CONSTIPATION; Start 12/06/18 at 09:30 Aspirin (Aspirin) 81 mg DAILY PO Last administered on 12/11/18 08:00; Admin Dose 81 MG; Start 12/06/18 at 10:30 Brimonidine Tartrate (Alphagan 0.2%) 1 drop DAILY BOTH EYES Last administered on 12/11/18 08:01; Admin Dose 1 DROP; Start 12/06/18 at 11:00 Calcium Acetate (Phoslo) 667 mg WITH MEALS PO ; Start 12/06/18 at 12:00 Docusate Sodium (Colace) 200 mg DAILY PO ; Start 12/06/18 at 10:30; Status Hold Lactulose (Enulose) 20 gm BID PO Last administered on 12/11/18 08:00; Admin Dose 20 GM; Start 12/06/18 at 21:00 Montelukast Sodium (Singulair) 10 mg HS PO ; Start 12/06/18 at 21:00; Status Hold Multivit/Ca Carb/ B Cmplx/FA/Prenat (Mariaelena-Rosas) 1 tab DAILY PO Last administered on 12/11/18 08:00; Admin Dose 1 TAB; Start 12/06/18 at 10:30 Norepinephrine 250 ml @ 1.875 mls/ hr TITRATE IV Last administered on 12/07/18 13:25; Admin Dose 56.25 MLS/HR; Start 12/06/18 at 13:00 Atropine Sulfate (Atropine (Syringe)) 1 mg PRN PRN IV prn Last administered on 12/06/18 16:49; Admin Dose 1 MG; Start 12/06/18 at 16:00 Propofol 100 ml @ 3.045 mls/ hr Q12H IV Last administered on 12/07/18 02:24; Admin Dose 24.36 MLS/HR; Start 12/06/18 at 16:30 Midazolam HCl 50 ml @ 1 mls/hr TITRATE IV Last administered on 12/09/18 05:09; Admin Dose 4 MLS/HR; Start 12/06/18 at 16:30 Vancomycin HCl (Vanco Iv Per Pharmacy) VANCOMYCIN PER PHARMACY PER PROTOCOL XX ; Start 12/06/18 at 17:30 Cefepime HCl 50 ml @ 100 mls/hr Q24H IVPB Last administered on 12/10/18 20:36; Admin Dose 100 MLS/HR; Start 12/06/18 at 21:00 Levetiracetam 100 ml @ 400 mls/hr Q12 IVPB Last administered on 12/11/18 08:01; Admin Dose 400 MLS/HR; Start 12/06/18 at 21:00 Dopamine HCl/ Dextrose 250 ml @ 7.613 mls/ hr TITRATE IV Last administered on 12/09/18 03:03; Admin Dose 11.419 MLS/HR; Start 12/06/18 at 17:30 Acetaminophen (Tylenol Supp) 650 mg Q4H PRN [place] TEMP > 37C; Start 12/06/18 at 18:30 Acetaminophen (Tylenol Liquid) 650 mg Q4H PRN PO TEMP > 37C Last administered on 12/11/18 07:59; Admin Dose 650 MG; Start 12/06/18 at 18:30 Meperidine HCl (Demerol) 12.5 mg Q4H PRN IV POST OPERATIVE SHIVERING; Start 12/06/18 at 18:30 Meperidine HCl (Demerol) 25 mg Q4H PRN IV POST OPERATIVE SHIVERING; Start 12/06/18 at 18:30 Eye Lubricant (Akwa Oint) 1 applic Q6 BOTH EYES Last administered on 12/11/18 05:10; Admin Dose 1 APPLIC; Start 12/07/18 at 00:00 Eye Lubricant (Artificial Tears Oph) 2 drop Q6 BOTH EYES Last administered on 12/11/18 05:10; Admin Dose 2 DROP; Start 12/07/18 at 00:00 Magnesium Sulfate 50 ml @ 25 mls/hr PRN PRN IVPB IV PROTOCOL; Start 12/06/18 at 20:30 Potassium Chloride 50 ml @ 25 mls/hr PRN PRN IVPB IV PROTOCOL Last administered on 12/07/18 08:33; Admin Dose 25 MLS/HR; Start 12/06/18 at 20:30 Heparin Sodium (Porcine) (Heparin (1000 Units/ml)) 4,000 unit AFTER DIALYSIS CATHETER ; Start 12/06/18 at 22:00 Albumin Human 100 ml @ 100 mls/hr WITH DIALYSIS PRN IV SBP <90 DURING DIALYSIS; Start 12/06/18 at 22:00 Sodium Chloride (NS) -To prime the dialy... DIRECTED FOR HD PRN IV HD; Start 12/06/18 at 22:00 Phenytoin 200 mg/ Sodium Chloride 54 ml @ 112 mls/hr AM IV Last administered on 12/10/18at 08:49; Admin Dose 112 MLS/HR; Start 12/07/18 at 09:00 Phenytoin 200 mg/ Sodium Chloride 54 ml @ 112 mls/hr PC LUNCH IV Last administered on 12/10/18at 12:18; Admin Dose 112 MLS/HR; Start 12/07/18 at 12:30 Phenytoin 300 mg/ Sodium Chloride 56 ml @ 112 mls/hr 2100 IV Last administered on 12/10/18at 21:04; Admin Dose 112 MLS/HR; Start 12/07/18 at 21:00 Pantoprazole (Protonix Iv) 40 mg DAILY@06 IV Last administered on 12/11/18at 05:09; Admin Dose 40 MG; Start 12/07/18 at 06:00 Fentanyl 100 ml @ 2.5 mls/hr TITRATE IV Last administered on 12/08/18at 06:27; Admin Dose 2.5 MLS/HR; Start 12/08/18 at 06:30 Diagnostic Test (Pha) (Accu-Chek) 1 ea 02 XX Last administered on 12/10/18at 02:38; Admin Dose 1 EA; Start 12/09/18 at 02:00 Miscellaneous Information 1 ea NOTE XX ; Start 12/08/18 at 11:30 Glucose (Glutose) 15 gm Q15M PRN PO DECREASED GLUCOSE; Start 12/08/18 at 11:30 Glucose (Glutose) 22.5 gm Q15M PRN PO DECREASED GLUCOSE; Start 12/08/18 at 11:30 Dextrose (D50w Syringe) 25 ml Q15M PRN IV DECREASED GLUCOSE; Start 12/08/18 at 11:30 Dextrose (D50w Syringe) 50 ml Q15M PRN IV DECREASED GLUCOSE; Start 12/08/18 at 11:30 Glucagon (Glucagen) 1 mg Q15M PRN IM DECREASED GLUCOSE; Start 12/08/18 at 11:30 Glucose (Glutose) 15 gm Q15M PRN BUCCAL DECREASED GLUCOSE; Start 12/08/18 at 11:30 Collagenase (Santyl) 1 applic DAILY TOP Last administered on 12/11/18at 08:01; Admin Dose 1 APPLIC; Start 12/10/18 at 09:00 Insulin Aspart (Novolog Insulin Pen) NOVOLOG *MILD* ALGORI... Q6 SC ; Start 12/10/18 at 12:00 CASSANDRA POSADAS Dec 11, 2018 09:14
[2018-12-11] MEDS: SOD CHLORIDE 0.9% IV SCH ×2 (09:20→12:17)
[2018-12-11] MEDS: PHENYTOIN IV SCH ×2 (09:20→12:17)
--- NOTE | 2018-12-11 11:37 | CONS ---
Assessment/Plan Assessment/Plan Hospital Course 47 F c/ reported Hx of stroke and epilepsy, among other comorbidities, who is currently admitted to the [facility] ICU following cardiac arrest. Now s/p TTM. On neurologic examination, she has preserved brainstem activity and a withdrawal motor response.. Her prognosis for meaningful neurologic recovery is probably poor. CTH is without acute intracranial pathology, though is notable for severe atrophy and chronic subdurals. EEG is without epileptiform activity. P: Goals of care conversations with medical decision makers Continue to limit sedating medications where possible OK to continue Dilantin and Keppra per ops for now; check Dilantin level Other medical management and supportive care per primary Will follow clinically Consultation Date/Type/Reason Admit Date/Time Dec 06, 2018 at 12:45 Type of Consult Neurology Reason for Consultation coma Requesting Provider: BOZENA PARK Date/Time of Note DATE: 12/11/18 TIME: 11:37 24 HR Interval Summary Free Text/Dictation Continues critical care. Subjective hx not possible: pt non-verbal, pt critical Exam Vital Signs Vitals Vital Signs Date Temp Pulse Resp B/P (MAP) Pulse Ox O2 O2 Flow FiO2 Time Delivery Rate 12/11/18 82 21 141/59 100 Mechanical 09:00 (86) Ventilator 12/11/18 99.7 08:44 12/11/18 30 08:00 Intake and Output 12/10/18 12/10/18 12/11/18 1515:00 23:00 07:00 IntakeIntake Total 366 ml 3206 ml 300 ml OutputOutput Total 300 ml 6100 ml 300 ml BalanceBalance 66 ml -2894 ml 0 ml Exam PE: Gen Appearance: No Apparent Distress HEENT: Intubated Cardiovascular: Regular rate Abdomen: Soft Extremities: Dry; edematous NE: The patient was obtunded and nonverbal. Cranial nerve examination was limited by mental status. R pupil was sluggishly reactive to light; L pupil was hazy. Funduscopic examination was limited. Face was grossly symmetric, w/ present corneal and cough reflexes. Tone was normal. Muscle bulk was normal. I did not see fasciculations. The patient had tripleflexion to noxious stimuli in her lower extremities. Coordination and gait testing was limited by mental status. Arm and leg reflexes were symmetric. Sun's sign was absent. Plantar responses were extensor. APARNA AQUINO [employer] REPA[employer] Dec 11, 2018 11:37 BEN DICKINSON Dec 11, 2018 13:39
--- NOTE | 2018-12-11 12:09 | CONS ---
Assessment/Plan Assessment/Plan Hospital Course (Demo Recall) Patient is in dialysis unresponsive in no distress. T-max 101. WBC 9.7 platelets 115 neutrophils 84.5 Blood cultures on admission grew oxacillin sensitive staph aureus, repeat blood cultures negative urine culture negative sputum culture pending CT brain yesterday revealed no acute intracranial bleed Indwelling: Upper extremity AV fistula, endotracheal tube, orogastric tube, left IJ central line, femoral triple-lumen catheter Microbiology: Blood culture on December 06 grew oxacillin sensitive staph aureus, repeat blood cultures negative, urine culture negative Antimicrobials: Cefepime Physical examination: Obese chronically ill-appearing middle-aged woman who is noncommunicative intubated in no distress. Head atraumatic normocephalic neck is obese chest rise symmetrical breath sounds diminished bases heart S1-S2 abdomen obese soft bowel sounds hypoactive extremities with trace edema Assessment: 1. Severe sepsis status post shock 2. Bilateral pneumonia 3. Oxacillin sensitive staph aureus bacteremia 4. Status post cardiac arrest with hypothermia protocol 5. Diabetes 6. Seizure disorder 7. End-stage renal disease, hemodialysis dependent 8. Cardiomyopathy with ejection fraction of 35% Plan: Clinically unchanged, spiking fevers, will repeat blood cultures and cons ider discontinuation femoral line, restart vancomycin, follow chest x-ray in a.m. Consultation Date/Type/Reason Admit Date/Time Dec 06, 2018 at 12:45 Initial Consult Date 12/06/18 Type of Consult id Requesting Provider: BOZENA PARK Date/Time of Note DATE: 12/11/18 TIME: 12:07 Exam/Review of Systems Exam Vitals Vital Signs Date Temp Pulse Resp B/P (MAP) Pulse Ox O2 O2 Flow FiO2 Time Delivery Rate 12/11/18 78 12:00 12/11/18 17 148/52 100 Mechanical 11:15 (84) Ventilator 12/11/18 99.7 08:44 12/11/18 30 08:00 Intake and Output 12/10/18 12/10/18 12/11/18 1515:00 23:00 07:00 IntakeIntake Total 366 ml 3206 ml 300 ml OutputOutput Total 300 ml 6100 ml 300 ml BalanceBalance 66 ml -2894 ml 0 ml Results Result Diagram: 12/11/18 0501 12/11/18 0501 Results 24hrs Laboratory Tests Test 12/10/18 12:16 12/10/18 12:21 12/10/18 18:13 12/10/18 18:54 Ammonia < 9 L Bedside Glucose 117 106 Hemoglobin 8.2 L Hematocrit 27.0 L Test 12/11/18 00:02 12/11/18 05:01 12/11/18 05:16 Bedside Glucose 114 130 White Blood Count 9.7 Red Blood Count 2.54 L Hemoglobin 7.6 L Hematocrit 25.9 L Mean Corpuscular 102.0 H Volume Mean Corpuscular 29.9 Hemoglobin Mean Corpuscular 29.3 L Hemoglobin Concent Red Cell 14.8 H Distribution Width Platelet Count 115 L Mean Platelet Volume 10.7 H Immature 0.900 H Granulocytes % Neutrophils % 84.5 H Lymphocytes % 6.0 L Monocytes % 8.3 Eosinophils % 0.1 Basophils % 0.2 Nucleated Red Blood 0.0 Cells % Immature 0.090 H Granulocytes # Neutrophils # 8.2 H Lymphocytes # 0.6 L Monocytes # 0.8 Eosinophils # 0.0 Basophils # 0.0 Nucleated Red Blood 0.0 Cells # Sodium Level 142 Potassium Level 4.4 Chloride Level 98 Carbon Dioxide Level 27 Anion Gap 17 H Blood Urea Nitrogen 20 Creatinine 3.54 #H Est Glomerular 14 L Filtrat Rate mL/min Glucose Level 119 Calcium Level 9.4 Phosphorus Level 3.5 Magnesium Level 2.2 Total Bilirubin 0.1 L Direct Bilirubin 0.00 Indirect Bilirubin 0.1 Aspartate Amino 43 Transf (AST/SGOT) Alanine 43 Aminotransferase (AL T/SGPT) Alkaline Phosphatase 101 Total Protein 7.2 Albumin 4.1 Medications Medication Current Medications Ondansetron HCl (Zofran Inj) 4 mg Q6H PRN IV NAUSEA AND/OR VOMITING; Start 12/06/18 at 09:30 Albuterol (Proventil 0.083% (Neb)) 2.5 mg Q2H RESP THERAPY PRN NEB SHORTNESS OF BREATH; Start 12/06/18 at 09:30 Acetaminophen (Tylenol Tab) 650 mg Q6H PRN PO PAIN LEVEL 1-3 OR FEVER; Start 12/06/18 at 09:30 Docusate Sodium (Colace) 100 mg Q12H PRN PO CONSTIPATION; Start 12/06/18 at 09:30 Magnesium Hydroxide (Milk Of Mag) 30 ml DAILY PRN PO CONSTIPATION; Start 12/06/18 at 09:30 Aspirin (Aspirin) 81 mg DAILY PO Last administered on 12/11/18 08:00; Admin Dose 81 MG; Start 12/06/18 at 10:30 Brimonidine Tartrate (Alphagan 0.2%) 1 drop DAILY BOTH EYES Last administered on 12/11/18 08:01; Admin Dose 1 DROP; Start 12/06/18 at 11:00 Calcium Acetate (Phoslo) 667 mg WITH MEALS PO ; Start 12/06/18 at 12:00 Docusate Sodium (Colace) 200 mg DAILY PO ; Start 12/06/18 at 10:30; Status Hold Lactulose (Enulose) 20 gm BID PO Last administered on 12/11/18 08:00; Admin Dose 20 GM; Start 12/06/18 at 21:00 Montelukast Sodium (Singulair) 10 mg HS PO ; Start 12/06/18 at 21:00; Status Hold Multivit/Ca Carb/ B Cmplx/FA/Prenat (Mariaelena-Rosas) 1 tab DAILY PO Last administered on 12/11/18 08:00; Admin Dose 1 TAB; Start 12/06/18 at 10:30 Norepinephrine 250 ml @ 1.875 mls/ hr TITRATE IV Last administered on 12/07/18 13:25; Admin Dose 56.25 MLS/HR; Start 12/06/18 at 13:00 Atropine Sulfate (Atropine (Syringe)) 1 mg PRN PRN IV prn Last administered on 12/06/18 16:49; Admin Dose 1 MG; Start 12/06/18 at 16:00 Propofol 100 ml @ 3.045 mls/ hr Q12H IV Last administered on 12/07/18 02:24; Admin Dose 24.36 MLS/HR; Start 12/06/18 at 16:30 Midazolam HCl 50 ml @ 1 mls/hr TITRATE IV Last administered on 12/09/18 05:09; Admin Dose 4 MLS/HR; Start 12/06/18 at 16:30 Vancomycin HCl (Vanco Iv Per Pharmacy) VANCOMYCIN PER PHARMACY PER PROTOCOL XX ; Start 12/06/18 at 17:30 Cefepime HCl 50 ml @ 100 mls/hr Q24H IVPB Last administered on 12/10/18 20:36; Admin Dose 100 MLS/HR; Start 12/06/18 at 21:00 Levetiracetam 100 ml @ 400 mls/hr Q12 IVPB Last administered on 12/11/18at 08:01; Admin Dose 400 MLS/HR; Start 12/06/18 at 21:00 Dopamine HCl/ Dextrose 250 ml @ 7.613 mls/ hr TITRATE IV Last administered on 12/09/18at 03:03; Admin Dose 11.419 MLS/HR; Start 12/06/18 at 17:30 Acetaminophen (Tylenol Supp) 650 mg Q4H PRN [place] TEMP > 37C; Start 12/06/18 at 18:30 Acetaminophen (Tylenol Liquid) 650 mg Q4H PRN PO TEMP > 37C Last administered on 12/11/18at 07:59; Admin Dose 650 MG; Start 12/06/18 at 18:30 Meperidine HCl (Demerol) 12.5 mg Q4H PRN IV POST OPERATIVE SHIVERING; Start 12/06/18 at 18:30 Meperidine HCl (Demerol) 25 mg Q4H PRN IV POST OPERATIVE SHIVERING; Start 12/06/18 at 18:30 Eye Lubricant (Akwa Oint) 1 applic Q6 BOTH EYES Last administered on 12/11/18at 05:10; Admin Dose 1 APPLIC; Start 12/07/18 at 00:00 Eye Lubricant (Artificial Tears Oph) 2 drop Q6 BOTH EYES Last administered on 12/11/18at 05:10; Admin Dose 2 DROP; Start 12/07/18 at 00:00 Magnesium Sulfate 50 ml @ 25 mls/hr PRN PRN IVPB IV PROTOCOL; Start 12/06/18 at 20:30 Potassium Chloride 50 ml @ 25 mls/hr PRN PRN IVPB IV PROTOCOL Last administered on 12/07/18at 08:33; Admin Dose 25 MLS/HR; Start 12/06/18 at 20:30 Heparin Sodium (Porcine) (Heparin (1000 Units/ml)) 4,000 unit AFTER DIALYSIS CATHETER ; Start 12/06/18 at 22:00 Albumin Human 100 ml @ 100 mls/hr WITH DIALYSIS PRN IV SBP <90 DURING DIALYSIS; Start 12/06/18 at 22:00 Sodium Chloride (NS) -To prime the dialy... DIRECTED FOR HD PRN IV HD; Start 12/06/18 at 22:00 Phenytoin 200 mg/ Sodium Chloride 54 ml @ 112 mls/hr AM IV Last administered on 12/11/18at 09:20; Admin Dose 112 MLS/HR; Start 12/07/18 at 09:00 Phenytoin 200 mg/ Sodium Chloride 54 ml @ 112 mls/hr PC LUNCH IV Last administered on 12/10/18at 12:18; Admin Dose 112 MLS/HR; Start 12/07/18 at 12:30 Phenytoin 300 mg/ Sodium Chloride 56 ml @ 112 mls/hr 2100 IV Last administered on 12/10/18at 21:04; Admin Dose 112 MLS/HR; Start 12/07/18 at 21:00 Pantoprazole (Protonix Iv) 40 mg DAILY@06 IV Last administered on 12/11/18at 05:09; Admin Dose 40 MG; Start 12/07/18 at 06:00 Fentanyl 100 ml @ 2.5 mls/hr TITRATE IV Last administered on 12/08/18at 06:27; Admin Dose 2.5 MLS/HR; Start 12/08/18 at 06:30 Diagnostic Test (Pha) (Accu-Chek) 1 ea 02 XX Last administered on 12/10/18at 02:38; Admin Dose 1 EA; Start 12/09/18 at 02:00 Miscellaneous Information 1 ea NOTE XX ; Start 12/08/18 at 11:30 Glucose (Glutose) 15 gm Q15M PRN PO DECREASED GLUCOSE; Start 12/08/18 at 11:30 Glucose (Glutose) 22.5 gm Q15M PRN PO DECREASED GLUCOSE; Start 12/08/18 at 11:30 Dextrose (D50w Syringe) 25 ml Q15M PRN IV DECREASED GLUCOSE; Start 12/08/18 at 11:30 Dextrose (D50w Syringe) 50 ml Q15M PRN IV DECREASED GLUCOSE; Start 12/08/18 at 11:30 Glucagon (Glucagen) 1 mg Q15M PRN IM DECREASED GLUCOSE; Start 12/08/18 at 11:30 Glucose (Glutose) 15 gm Q15M PRN BUCCAL DECREASED GLUCOSE; Start 12/08/18 at 1 1:30 Collagenase (Santyl) 1 applic DAILY TOP Last administered on 12/11/18at 08:01; Admin Dose 1 APPLIC; Start 12/10/18 at 09:00 Insulin Aspart (Novolog Insulin Pen) NOVOLOG *MILD* ALGORI... Q6 SC ; Start 12/10/18 at 12:00 Carvedilol (Coreg) 6.25 mg BID PO ; Start 12/11/18 at 09:30 Diagnostic Test (Pha) (Accu-Chek) 1 ea Q4 XX ; Start 12/11/18 at 13:00 Miscellaneous Information (*Rx Drug Level Order Reminder*) RANDOM LEVEL ON @ 500 0500 ONCE XX ; Start 12/12/18 at 05:00; Stop 12/12/18 at 05:01 LEWIS PERALES NP Dec 11, 2018 12:09
[2018-12-11] MEDS ORDERED: TPN 1,000 ML IV SCH (12:26)
[2018-12-11] MEDS ORDERED: VANCOMYCIN IV PER PHARMACY XX SCH (12:30)
--- NOTE | 2018-12-11 13:05 | RADRPT ---
Vent Rate: 80 bpm RR Interval: 0 msec NC Interval: 196 msec QRS Duration: 100 msec QT Interval: 490 msec QTC Interval: 565 msec P-R-T [place]: 63 - -4 - 66 degrees Normal sinus rhythm Low voltage QRS Prolonged QT Abnormal ECG Electronically Signed By: Brigido Santiago
--- NOTE | 2018-12-11 13:06 | RADRPT ---
Vent Rate: 51 bpm RR Interval: 0 msec MI Interval: 178 msec QRS Duration: 92 msec QT Interval: 740 msec QTC Interval: 682 msec P-R-T [place]: 50 - -16 - 33 degrees Sinus bradycardia Nonspecific ST abnormality Prolonged QT Abnormal ECG Electronically Signed By: Brigido Santiago
--- NOTE | 2018-12-11 13:07 | RADRPT ---
Vent Rate: 51 bpm RR Interval: 0 msec MA Interval: 0 msec QRS Duration: 100 msec QT Interval: 740 msec QTC Interval: 682 msec P-R-T [place]: 0 - -3 - 34 degrees Normal sinus rhythm Nonspecific T wave abnormality Prolonged QT Abnormal ECG Electronically Signed By: Brigido Santiago
--- NOTE | 2018-12-11 14:36 | PN ---
Date/Time of Note Date/Time of Note DATE: 12/11/18 TIME: 14:35 Objective Vitals Vital Signs Date Temp Pulse Resp B/P (MAP) Pulse Ox O2 O2 Flow FiO2 Time Delivery Rate 12/11/18 78 27 117/61 100 Mechanical 14:00 (79) Ventilator 12/11/18 98.5 12:00 12/11/18 30 11:10 Intake and Output 12/10/18 12/10/18 12/11/18 1515:00 23:00 07:00 IntakeIntake Total 366 ml 3206 ml 300 ml OutputOutput Total 300 ml 6100 ml 300 ml BalanceBalance 66 ml -2894 ml 0 ml Results Result Diagram: 12/11/18 0501 12/11/18 1135 Medications Medications Current Medications Ondansetron HCl (Zofran Inj) 4 mg Q6H PRN IV NAUSEA AND/OR VOMITING; Start 12/06/18 at 09:30 Albuterol (Proventil 0.083% (Neb)) 2.5 mg Q2H RESP THERAPY PRN NEB SHORTNESS OF BREATH; Start 12/06/18 at 09:30 Acetaminophen (Tylenol Tab) 650 mg Q6H PRN PO PAIN LEVEL 1-3 OR FEVER; Start 12/06/18 at 09:30 Docusate Sodium (Colace) 100 mg Q12H PRN PO CONSTIPATION; Start 12/06/18 at 09:30 Magnesium Hydroxide (Milk Of Mag) 30 ml DAILY PRN PO CONSTIPATION; Start 12/06/18 at 09:30 Aspirin (Aspirin) 81 mg DAILY PO Last administered on 12/11/18at 08:00; Admin Dose 81 MG; Start 12/06/18 at 10:30 Brimonidine Tartrate (Alphagan 0.2%) 1 drop DAILY BOTH EYES Last administered on 12/11/18at 08:01; Admin Dose 1 DROP; Start 12/06/18 at 11:00 Calcium Acetate (Phoslo) 667 mg WITH MEALS PO ; Start 12/06/18 at 12:00 Docusate Sodium (Colace) 200 mg DAILY PO ; Start 12/06/18 at 10:30; Status Hold Lactulose (Enulose) 20 gm BID PO Last administered on 12/11/18at 08:00; Admin Dose 20 GM; Start 12/06/18 at 21:00 Montelukast Sodium (Singulair) 10 mg HS PO ; Start 12/06/18 at 21:00; Status Hold Multivit/Ca Carb/ B Cmplx/FA/Prenat (Mariaelena-Rosas) 1 tab DAILY PO Last adminis tered on 12/11/18 08:00; Admin Dose 1 TAB; Start 12/06/18 at 10:30 Norepinephrine 250 ml @ 1.875 mls/ hr TITRATE IV Last administered on 12/07/18 13:25; Admin Dose 56.25 MLS/HR; Start 12/06/18 at 13:00 Atropine Sulfate (Atropine (Syringe)) 1 mg PRN PRN IV prn Last administered on 12/06/18 16:49; Admin Dose 1 MG; Start 12/06/18 at 16:00 Propofol 100 ml @ 3.045 mls/ hr Q12H IV Last administered on 12/07/18 02:24; Admin Dose 24.36 MLS/HR; Start 12/06/18 at 16:30 Midazolam HCl 50 ml @ 1 mls/hr TITRATE IV Last administered on 12/09/18 05:09; Admin Dose 4 MLS/HR; Start 12/06/18 at 16:30 Vancomycin HCl (Vanco Iv Per Pharmacy) VANCOMYCIN PER PHARMACY PER PROTOCOL XX ; Start 12/06/18 at 17:30 Cefepime HCl 50 ml @ 100 mls/hr Q24H IVPB Last administered on 12/10/18 20:36; Admin Dose 100 MLS/HR; Start 12/06/18 at 21:00 Levetiracetam 100 ml @ 400 mls/hr Q12 IVPB Last administered on 12/11/18 08 :01; Admin Dose 400 MLS/HR; Start 12/06/18 at 21:00 Dopamine HCl/ Dextrose 250 ml @ 7.613 mls/ hr TITRATE IV Last administered on 12/09/18 03:03; Admin Dose 11.419 MLS/HR; Start 12/06/18 at 17:30 Acetaminophen (Tylenol Supp) 650 mg Q4H PRN [place] TEMP > 37C; Start 12/06/18 at 18:30 Acetaminophen (Tylenol Liquid) 650 mg Q4H PRN PO TEMP > 37C Last administered on 4/11/19at 07:59; Admin Dose 650 MG; Start 12/06/18 at 18:30 Meperidine HCl (Demerol) 12.5 mg Q4H PRN IV POST OPERATIVE SHIVERING; Start 12/06/18 at 18:30 Meperidine HCl (Demerol) 25 mg Q4H PRN IV POST OPERATIVE SHIVERING; Start 12/06/18 at 18:30 Eye Lubricant (Akwa Oint) 1 applic Q6 BOTH EYES Last administered on 12/11/18at 12:17; Admin Dose 1 APPLIC; Start 12/07/18 at 00:00 Eye Lubricant (Artificial Tears Oph) 2 drop Q6 BOTH EYES Last administered on 12/11/18at 12:17; Admin Dose 2 DROP; Start 12/07/18 at 00:00 Magnesium Sulfate 50 ml @ 25 mls/hr PRN PRN IVPB IV PROTOCOL; Start 12/06/18 at 20:30 Potassium Chloride 50 ml @ 25 mls/hr PRN PRN IVPB IV PROTOCOL Last administered on 12/07/18at 08:33; Admin Dose 25 MLS/HR; Start 12/06/18 at 20:30 Heparin Sodium (Porcine) (Heparin (1000 Units/ml)) 4,000 unit AFTER DIALYSIS CATHETER ; Start 12/06/18 at 22:00 Albumin Human 100 ml @ 100 mls/hr WITH DIALYSIS PRN IV SBP <90 DURING DIALYSIS; Start 12/06/18 at 22:00 Sodium Chloride (NS) -To prime the dialy... DIRECTED FOR HD PRN IV HD; Start 12/06/18 at 22:00 Phenytoin 200 mg/ Sodium Chloride 54 ml @ 112 mls/hr AM IV Last administered o n 12/11/18at 09:20; Admin Dose 112 MLS/HR; Start 12/07/18 at 09:00 Phenytoin 200 mg/ Sodium Chloride 54 ml @ 112 mls/hr PC LUNCH IV Last administered on 12/11/18at 12:17; Admin Dose 112 MLS/HR; Start 12/07/18 at 12:30 Phenytoin 300 mg/ Sodium Chloride 56 ml @ 112 mls/hr 2100 IV Last administered on 12/10/18at 21:04; Admin Dose 112 MLS/HR; Start 12/07/18 at 21:00 Pantoprazole (Protonix Iv) 40 mg DAILY@06 IV Last administered on 12/11/18at 05:09; Admin Dose 40 MG; Start 12/07/18 at 06:00 Fentanyl 100 ml @ 2.5 mls/hr TITRATE IV Last administered on 12/08/18at 06:27; Admin Dose 2.5 MLS/HR; Start 12/08/18 at 06:30 Diagnostic Test (Pha) (Accu-Chek) 1 ea 02 XX Last administered on 12/10/18at 02:38; Admin Dose 1 EA; Start 12/09/18 at 02:00 Miscellaneous Information 1 ea NOTE XX ; Start 12/08/18 at 11:30 Glucose (Glutose) 15 gm Q15M PRN PO DECREASED GLUCOSE; Start 12/08/18 at 11:30 Glucose (Glutose) 22.5 gm Q15M PRN PO DECREASED GLUCOSE; Start 12/08/18 at 11:30 Dextrose (D50w Syringe) 25 ml Q15M PRN IV DECREASED GLUCOSE; Start 12/08/18 at 11:30 Dextrose (D50w Syringe) 50 ml Q15M PRN IV DECREASED GLUCOSE; Start 12/08/18 at 11:30 Glucagon (Glucagen) 1 mg Q15M PRN IM DECREASED GLUCOSE; Start 12/08/18 at 11:30 Glucose (Glutose) 15 gm Q15M PRN BUCCAL DECREASED GLUCOSE; Start 12/08/18 at 11:30 Collagenase (Santyl) 1 applic DAILY TOP Last administered on 12/11/18at 08:01; Admin Dose 1 APPLIC; Start 12/10/18 at 09:00 Insulin Aspart (Novolog Insulin Pen) NOVOLOG *MILD* ALGORI... Q6 SC ; Start 12/10/18 at 12:00 Carvedilol (Coreg) 6.25 mg BID PO ; Start 12/11/18 at 09:30 Diagnostic Test (Pha) (Accu-Chek) 1 ea Q4 XX Last administered on 12/11/18at 12:11; Admin Dose 1 EA; Start 12/11/18 at 13:00 Miscellaneous Information (*Rx Drug Level Order Reminder*) RANDOM LEVEL ON @ 500 0500 ONCE XX ; Start 12/12/18 at 05:00; Stop 12/12/18 at 05:01 Total Parenteral Nutrition 1,000 ml @ 0 mls/hr Q0M IV ; Start 12/11/18 at 12:26; Status UNV VTE Prophylaxis Risk score (from Ns)>0 risk: 5 SCD applied (from [facility] [place] Yes Lines/Catheters IV Catheter Type: Simpson in Place: No Assessment/Plan Hospital Course Subjective Patient still intubated, off sedation Objective Physical exam General: Patient is intubated Mentation: Patient is intubated but no purposeful movement Head: Normocephalic atraumatic Eyes: EOMI, left pupil is alfredo out chronically Neck: Supple, nontender, midline Respiratory: Coarse to auscultation bilaterally Cardiovascular: Tachycardic rate, no obvious murmurs Gastrointestinal: non-tender to palpation, bowel sounds heard. Neurological: No purposeful movement, occasional cough Skin: No new skin lesions Assessment/Plan 1. S/p Cardiac arrest with ROSC - Patient is currently finished with hypothermia protocol and off sedation and will continue monitoring neurological status - Patient initially with NSVT and given prolonged QT and placement on Amiodarone went into torsades then coded. Patient coded another 3 times total secondary to PEA arrest with ROSC - Cardiology on board and appreciate recommendations. Continue on Dopamine. may need? Cardiac cath if patient recovers - trops remain negative indicating non ischemic etiology for arrest Staph bacteremia -IV antibiotic -Infectious disease consulted Anemia -likely 2/2 traumatic simpson manipulation during cleaning, CBI done and now clear and stable, CBI stopped -Patient is likely iron deficient and reticulocyte count shows evidence of hypo- proliferation -Transfuse as needed Thrombocytopenia -Mild to moderate, monitor closely no obvious signs of bleeding Chronic blindness -Chronic left-sided blindness secondary to diabetic retinopathy, patient also has moderate to severe right-sided blindness secondary to diabetic retinopathy ?Arrhythmia, NSVT - Patient has ? afib and may have had afib with aberrancy but initial event was not captured - EKG showing prolonged QT - noted on Coumadin on med rec but INR normal at time of presentation. Will need to touch base with fam vs patient when she recovers on why she takes Coumadin Cardiogenic shock -Resolving, off pressors at this time 4. Sepsis - likely aspiration and now bacteremic given multiple cardiac arrest episodes. CXR from this am still pending - snider cultures drawn and continue on current broad antibiotics - LA normalized 5. Hypokalemia - replacing 6. DM -Insulin drip changed to sliding scale - A1c noted and uncontrolled - discussed with family need for better glucose control after discharge 7. ESRD on HD - Nephrology,Dr. Reddy, on board and appreciate consultation. T/T/S scheduled 8. h/o CVA - continue current medications 9. HTN - currently requiring pressor support 10. Disposition -Monitor off sedation as tolerated. Assess for neurological recovery - Palliative on board. Family would like patient to remain full code for now -start TPN >40 minutes of critical care time spent with patient and family at bedside BOZENA PARK Dec 11, 2018 14:36
--- NOTE | 2018-12-11 15:11 | CONS ---
Assessment/Plan Assessment/Plan Assessment/Plan (Daily) 1. Cardiopulmonary Arrest--initially secondary to NSVT vs. Afib with aberrancy, thereafter course complicated by Torsades with notable QT prolongation. - Currently on Hypothermia protocol 2. ESRD on HD TTS timo at [facility] 3. acute hypoxemic respiratory failure due to cardiac arrest s/p Intubation on ventilator 4. Shock--likely cardiogenic; cannot exclude obstructive though clinical picture not consistent with massive PE. 5. Sepsis 2/2 staph bacteremia 6. HTN heart disease 7.. DM Plan: s/p HD today 2.7 L removed, then pt will be on her original schedule TTS s/p hypothermia protocol , remains intubated urine cleared with CBI, spiking fever, on IV abx, BP stable will follow up Consultation Date/Type/Reason Admit Date/Time Dec 06, 2018 at 12:45 Initial Consult Date 12/06/18 Type of Consult NEPHROLOGY Requesting Provider: BOZENA PARK Date/Time of Note DATE: 12/11/18 TIME: 15:10 24 HR Interval Summary Free Text/Dictation WBC 9.7, remains intubated, BP stable, s/p Hd today Exam/Review of Systems Exam Vitals Vital Signs Date Temp Pulse Resp B/P (MAP) Pulse Ox O2 O2 Flow FiO2 Time Delivery Rate 12/11/18 82 22 130/70 100 Mechanical 14:35 (90) Ventilator 12/11/18 98.5 12:00 12/11/18 30 11:10 Intake and Output 12/10/18 12/10/18 12/11/18 1515:00 23:00 07:00 IntakeIntake Total 366 ml 3206 ml 300 ml OutputOutput Total 300 ml 6100 ml 300 ml BalanceBalance 66 ml -2894 ml 0 ml Exam Constitutional: non-verbal Head: normocephalic, atraumatic Eyes: nl conjunctiva, nl lids ENMT: intubated Neck: supple, non-tender Respiratory: diminished breath sounds Cardiovascular: irregular rhythm Gastrointestinal: soft, nl liver, spleen, non-tender Extremities: 1+ pitting edema, no clubbing/no cyanosis Neurological: unresponsive Skin: nl turgor Results Result Diagram: 12/11/18 0501 12/11/18 1135 Results 24hrs Laboratory Tests Test 12/10/18 18:13 12/10/18 18:54 12/11/18 00:02 12/11/18 05:01 Bedside Glucose 106 114 Hemoglobin 8.2 L 7.6 L Hematocrit 27.0 L 25.9 L White Blood Count 9.7 Red Blood Count 2.54 L Mean Corpuscular 102.0 H Volume Mean Corpuscular 29.9 Hemoglobin Mean Corpuscular 29.3 L Hemoglobin Concent Red Cell 14.8 H Distribution Width Platelet Count 115 L Mean Platelet Volume 10.7 H Immature 0.900 H Granulocytes % Neutrophils % 84.5 H Lymphocytes % 6.0 L Monocytes % 8.3 Eosinophils % 0.1 Basophils % 0.2 Nucleated Red Blood 0.0 Cells % Immature 0.090 H Granulocytes # Neutrophils # 8.2 H Lymphocytes # 0.6 L Monocytes # 0.8 Eosinophils # 0.0 Basophils # 0.0 Nucleated Red Blood 0.0 Cells # Sodium Level 142 Potassium Level 4.4 Chloride Level 98 Carbon Dioxide Level 27 Anion Gap 17 H Blood Urea Nitrogen 20 Creatinine 3.54 #H Est Glomerular 14 L Filtrat Rate mL/min Glucose Level 119 Calcium Level 9.4 Phosphorus Level 3.5 Magnesium Level 2.2 Total Bilirubin 0.1 L Direct Bilirubin 0.00 Indirect Bilirubin 0.1 Aspartate Amino 43 Transf (AST/SGOT) Alanine 43 Aminotransferase (AL T/SGPT) Alkaline Phosphatase 101 Total Protein 7.2 Albumin 4.1 Test 12/11/18 05:16 12/11/18 11:35 12/11/18 12:16 Bedside Glucose 130 130 Sodium Level 141 Potassium Level 4.2 Chloride Level 101 Carbon Dioxide Level 24 Anion Gap 16 H Blood Urea Nitrogen 24 H Creatinine 4.21 H Est Glomerular 11 L Filtrat Rate mL/min Glucose Level 160 Calcium Level 9.6 Phosphorus Level 3.7 Magnesium Level 2.4 Total Bilirubin 0.2 Direct Bilirubin 0.00 Indirect Bilirubin 0.2 Aspartate Amino 37 Transf (AST/SGOT) Alanine 41 Aminotransferase (AL T/SGPT) Alkaline Phosphatase 113 Total Protein 7.3 Albumin 3.9 Globulin 3.40 H Albumin/Globulin 1.14 Ratio Prealbumin 12.4 L Triglycerides Level 150 H Medications Medication Current Medications Ondansetron HCl (Zofran Inj) 4 mg Q6H PRN IV NAUSEA AND/OR VOMITING; Start 12/06/18 at 09:30 Albuterol (Proventil 0.083% (Neb)) 2.5 mg Q2H RESP THERAPY PRN NEB SHORTNESS OF BREATH; Start 12/06/18 at 09:30 Acetaminophen (Tylenol Tab) 650 mg Q6H PRN PO PAIN LEVEL 1-3 OR FEVER; Start 12/06/18 at 09:30 Docusate Sodium (Colace) 100 mg Q12H PRN PO CONSTIPATION; Start 12/06/18 at 09:30 Magnesium Hydroxide (Milk Of Mag) 30 ml DAILY PRN PO CONSTIPATION; Start 12/06/18 at 09:30 Aspirin (Aspirin) 81 mg DAILY PO Last administered on 12/11/18 08:00; Admin Dose 81 MG; Start 12/06/18 at 10:30 Brimonidine Tartrate (Alphagan 0.2%) 1 drop DAILY BOTH EYES Last administered on 12/11/18 08:01; Admin Dose 1 DROP; Start 12/06/18 at 11:00 Calcium Acetate (Phoslo) 667 mg WITH MEALS PO ; Start 12/06/18 at 12:00 Docusate Sodium (Colace) 200 mg DAILY PO ; Start 12/06/18 at 10:30; Status Hold Lactulose (Enulose) 20 gm BID PO Last administered on 12/11/18 08:00; Admin Dose 20 GM; Start 12/06/18 at 21:00 Montelukast Sodium (Singulair) 10 mg HS PO ; Start 12/06/18 at 21:00; Status Hold Multivit/Ca Carb/ B Cmplx/FA/Prenat (Mariaelena-Rosas) 1 tab DAILY PO Last administered on 12/11/18 08:00; Admin Dose 1 TAB; Start 12/06/18 at 10:30 Norepinephrine 250 ml @ 1.875 mls/ hr TITRATE IV Last administered on 12/07/18 13:25; Admin Dose 56.25 MLS/HR; Start 12/06/18 at 13:00 Atropine Sulfate (Atropine (Syringe)) 1 mg PRN PRN IV prn Last administered on 12/06/18 16:49; Admin Dose 1 MG; Start 12/06/18 at 16:00 Propofol 100 ml @ 3.045 mls/ hr Q12H IV Last administered on 12/07/18 02:24; Admin Dose 24.36 MLS/HR; Start 12/06/18 at 16:30 Midazolam HCl 50 ml @ 1 mls/hr TITRATE IV Last administered on 12/09/18at 05:09; Admin Dose 4 MLS/HR; Start 12/06/18 at 16:30 Vancomycin HCl (Vanco Iv Per Pharmacy) VANCOMYCIN PER PHARMACY PER PROTOCOL XX ; Start 12/06/18 at 17:30 Cefepime HCl 50 ml @ 100 mls/hr Q24H IVPB Last administered on 12/10/18at 20:36; Admin Dose 100 MLS/HR; Start 12/06/18 at 21:00 Levetiracetam 100 ml @ 400 mls/hr Q12 IVPB Last administered on 12/11/18at 08:01; Admin Dose 400 MLS/HR; Start 12/06/18 at 21:00 Dopamine HCl/ Dextrose 250 ml @ 7.613 mls/ hr TITRATE IV Last administered on 12/09/18at 03:03; Admin Dose 11.419 MLS/HR; Start 12/06/18 at 17:30 Acetaminophen (Tylenol Supp) 650 mg Q4H PRN MD TEMP > 37C; Start 12/06/18 at 18:30 Acetaminophen (Tylenol Liquid) 650 mg Q4H PRN PO TEMP > 37C Last administered on 12/11/18at 07:59; Admin Dose 650 MG; Start 12/06/18 at 18:30 Meperidine HCl (Demerol) 12.5 mg Q4H PRN IV POST OPERATIVE SHIVERING; Start 12/06/18 at 18:30 Meperidine HCl (Demerol) 25 mg Q4H PRN IV POST OPERATIVE SHIVERING; Start 12/06/18 at 18:30 Eye Lubricant (Akwa Oint) 1 applic Q6 BOTH EYES Last administered on 12/11/18at 12:17; Admin Dose 1 APPLIC; Start 12/07/18 at 00:00 Eye Lubricant (Artificial Tears Oph) 2 drop Q6 BOTH EYES Last administered on 12/11/18at 12:17; Admin Dose 2 DROP; Start 12/07/18 at 00:00 Magnesium Sulfate 50 ml @ 25 mls/hr PRN PRN IVPB IV PROTOCOL; Start 12/06/18 at 20:30 Potassium Chloride 50 ml @ 25 mls/hr PRN PRN IVPB IV PROTOCOL Last administered on 12/07/18at 08:33; Admin Dose 25 MLS/HR; Start 12/06/18 at 20:30 Heparin Sodium (Porcine) (Heparin (1000 Units/ml)) 4,000 unit AFTER DIALYSIS CATHETER ; Start 12/06/18 at 22:00 Albumin Human 100 ml @ 100 mls/hr WITH DIALYSIS PRN IV SBP <90 DURING DIALYSIS; Start 12/06/18 at 22:00 Sodium Chloride (NS) -To prime the dialy... DIRECTED FOR HD PRN IV HD; Start 12/06/18 at 22:00 Phenytoin 200 mg/ Sodium Chloride 54 ml @ 112 mls/hr AM IV Last administered on 12/11/18at 09:20; Admin Dose 112 MLS/HR; Start 12/07/18 at 09:00 Phenytoin 200 mg/ Sodium Chloride 54 ml @ 112 mls/hr PC LUNCH IV Last administered on 12/11/18at 12:17; Admin Dose 112 MLS/HR; Start 12/07/18 at 12:30 Phenytoin 300 mg/ Sodium Chloride 56 ml @ 112 mls/hr 2100 IV Last administered on 12/10/18at 21:04; Admin Dose 112 MLS/HR; Start 12/07/18 at 21:00 Pantoprazole (Protonix Iv) 40 mg DAILY@06 IV Last administered on 12/11/18at 05:09; Admin Dose 40 MG; Start 12/07/18 at 06:00 Fentanyl 100 ml @ 2.5 mls/hr TITRATE IV Last administered on 12/08/18at 06:27; Admin Dose 2.5 MLS/HR; Start 12/08/18 at 06:30 Diagnostic Test (Pha) (Accu-Chek) 1 ea 02 XX Last administered on 12/10/18at 02:38; Admin Dose 1 EA; Start 12/09/18 at 02:00 Miscellaneous Information 1 ea NOTE XX ; Start 12/08/18 at 11:30 Glucose (Glutose) 15 gm Q15M PRN PO DECREASED GLUCOSE; Start 12/08/18 at 11:30 Glucose (Glutose) 22.5 gm Q15M PRN PO DECREASED GLUCOSE; Start 12/08/18 at 11:30 Dextrose (D50w Syringe) 25 ml Q15M PRN IV DECREASED GLUCOSE; Start 12/08/18 at 11:30 Dextrose (D50w Syringe) 50 ml Q15M PRN IV DECREASED GLUCOSE; Start 12/08/18 at 11:30 Glucagon (Glucagen) 1 mg Q15M PRN IM DECREASED GLUCOSE; Start 12/08/18 at 11:30 Glucose (Glutose) 15 gm Q15M PRN BUCCAL DECREASED GLUCOSE; Start 12/08/18 at 11:30 Collagenase (Santyl) 1 applic DAILY TOP Last administered on 12/11/18at 08:01; Admin Dose 1 APPLIC; Start 12/10/18 at 09:00 Insulin Aspart (Novolog Insulin Pen) NOVOLOG *MILD* ALGORI... Q6 SC ; Start 12/10/18 at 12:00 Carvedilol (Coreg) 6.25 mg BID PO ; Start 12/11/18 at 09:30 Diagnostic Test (Pha) (Accu-Chek) 1 ea Q4 XX Last administered on 12/11/18at 12:11; Admin Dose 1 EA; Start 12/11/18 at 13:00 Miscellaneous Information (*Rx Drug Level Order Reminder*) RANDOM LEVEL ON @ 500 0500 ONCE XX ; Start 12/12/18 at 05:00; Stop 12/12/18 at 05:01 Total Parenteral Nutrition 1,000 ml @ 50 mls/hr Q20H IV ; Start 12/11/18 at 18:00 LAZ MELGAR MD Dec 11, 2018 15:11
[2018-12-11] MEDS: TPN 1,000 ML IV SCH (17:44)
[2018-12-11] MEDS: ACETAMINOPHEN 650MG/20.3ML CUP GTB PRN (21:00)
[2018-12-11] MEDS: CEFEPIME 1GM/50 ML (PMX) 50 ML IVPB SCH (21:01)
[2018-12-11] MEDS: PHENYTOIN 300 MG in SOD CHLORIDE 0.9% 50 ML IV SCH (21:01)
[2018-12-12] VITALS (60 sets, daily range): BP systolic 77–140; BP diastolic 33–65; PULSE 74–83; RESP 12–28
[2018-12-12] MEDS: INSULIN ASPART [NOVOLOG] 3 ML PEN SC SCH ×5 (00:45→20:43)
[2018-12-12] MEDS: ARTIFICIAL TEARS 15 ML OPH BOTH EYES SCH ×5 (00:46→23:52)
[2018-12-12] MEDS: ACCU-CHEK XX SCH ×6 (00:47→21:00)
[2018-12-12] MEDS: OCULAR LUBRICANT 3.5 GM OPH OINT BOTH EYES SCH ×5 (00:47→23:53)
[2018-12-12] MEDS: PROPOFOL 100 ML IV SCH (04:30)
[2018-12-12] MEDS: PANTOPRAZOLE 40 MG INJ IV SCH (05:54)
[2018-12-12] MEDS: CALCIUM ACETATE 667 MG CAP PO SCH ×3 (07:35→18:18)
[2018-12-12] MEDS ORDERED: SOD CHLORIDE 0.9% 500 ML IV ONE (08:30)
[2018-12-12] MEDS ORDERED: ALBUMIN HUMAN 25% 100 ML IV ONE (08:30)
--- NOTE | 2018-12-12 08:52 | CONS ---
Assessment/Plan Assessment/Plan Hospital Course (Demo Recall) s/p cardiac arrest:First event was torsades in setting of prolonged QT caused by amiodarone. Subsequent PEA events. Trops negative and no ischemic EKG changes. Had a bradycardic arrest as well which may have been metabolic or related to lidocaine. No further arrhythmias and seems to be stabilizing. EF is 35% and there is significant RV dysfunction and likely underlying severe pulm HTN which cannot be assessed accurately by echo. If she recovers she will need a cardiac cath for evaluation. Staph aureus bacteremia so may all have been sepsis related Shock: Septic with bacteremia. Off pressors Staph aureus bacteremia: ?from decubs Torsades: due to amiodarone induced prolonged QTc. Now resolved Prolonged QT: due to amiodarone. Improved Cardiomyopathy: EF 35% RV dysfunction: doubt acute PE but maybe long standing pulm HTN NSVT: Unfortunately the tele bed in the ER that she was in did not record arrhythmias. Per ER MD she had 10-12 beats runs. Acute on chronic systolic CHF: EF 35%. Decompensated on exam HTN : BP initially recorded in the 120s, then >200. Now off dopamine ?Paroxysmal afib: Coumadin is on her med list but INR was normal on admission. With h/o stroke, presumably she had afib in the past. ESRD on HD DM CVA with left weakness -if cultures come back positive for staph aureus again, will need WILLIAMS. -d/c coreg 6.25mg BID -pressors as needed -?fungal coverage in the interim -antibiotics Consultation Date/Type/Reason Admit Date/Time Dec 06, 2018 at 12:45 Initial Consult Date 12/06/18 Type of Consult Cardiology Requesting Provider: BOZENA PARK Date/Time of Note DATE: 12/12/18 TIME: 08:51 24 HR Interval Summary Free Text/Dictation Persistent fevers overnight. BP low. Rosa in sputum Exam/Review of Systems Vital Signs Vitals Vital Signs Date Temp Pulse Resp B/P (MAP) Pulse Ox O2 O2 Flow FiO2 Time Delivery Rate 12/12/18 75 17 98 30 08:10 12/12/18 101.5 87/40 (56) 08:00 12/11/18 [place] 20:00 l Ventilato r Intake and Output 12/11/18 12/11/18 12/12/18 1515:00 23:00 07:00 IntakeIntake Total 208 ml 400 ml 350 ml OutputOutput Total 3100 ml 300 ml 0 ml BalanceBalance -2892 ml 100 ml 350 ml Exam Constitutional: No alert, No oriented Neck: No jvd (unable to assess) Respiratory: diminished breath sounds; No clear to auscultation Cardiovascular: regular rate and rhythm, edema (1+) Gastrointestinal: soft; No distended Musculoskeletal: No nl extremities to inspection Neurological: No nl mental status, No nl speech Labs Result Diagram: 12/11/18 0501 12/12/18 0520 Results 24hrs Laboratory Tests Test 12/11/18 11:35 12/11/18 12:16 12/11/18 14:22 12/11/18 17:42 Sodium Level 141 Potassium Level 4.2 Chloride Level 101 Carbon Dioxide Level 24 Anion Gap 16 H Blood Urea Nitrogen 24 H Creatinine 4.21 H Est Glomerular 11 L Filtrat Rate mL/min Glucose Level 160 Calcium Level 9.6 Phosphorus Level 3.7 Magnesium Level 2.4 Total Bilirubin 0.2 Direct Bilirubin 0.00 Indirect Bilirubin 0.2 Aspartate Amino 37 Transf (AST/SGOT) Alanine 41 Aminotransferase (AL T/SGPT) Alkaline Phosphatase 113 Total Protein 7.3 Albumin 3.9 Globulin 3.40 H Albumin/Globulin 1.14 Ratio Prealbumin 12.4 L Triglycerides Level 150 H Bedside Glucose 130 131 Phenytoin (Dilantin) 12.2 Level Test 12/12/18 00:37 12/12/18 05:20 12/12/18 05:39 Bedside Glucose 240 H 301 H Sodium Level 137 Potassium Level 3.8 Chloride Level 95 L Carbon Dioxide Level 28 Anion Gap 14 H Blood Urea Nitrogen 31 H Creatinine 3.52 H Est Glomerular 14 L Filtrat Rate mL/min Glucose Level 288 #H Calcium Level 9.0 Phosphorus Level 2.1 #L Magnesium Level 2.1 Random Vancomycin 13.9 Level Medications Medications Current Medications Ondansetron HCl (Zofran Inj) 4 mg Q6H PRN IV NAUSEA AND/OR VOMITING; Start 12/06/18 at 09:30 Albuterol (Proventil 0.083% (Neb)) 2.5 mg Q2H RESP THERAPY PRN NEB SHORTNESS OF BREATH; Start 12/06/18 at 09:30 Docusate Sodium (Colace) 100 mg Q12H PRN PO CONSTIPATION; Start 12/06/18 at 09:30 Magnesium Hydroxide (Milk Of Mag) 30 ml DAILY PRN PO CONSTIPATION; Start 12/06/18 at 09:30 Aspirin (Aspirin) 81 mg DAILY PO Last administered on 12/11/18 08:00; Admin Dose 81 MG; Start 12/06/18 at 10:30 Brimonidine Tartrate (Alphagan 0.2%) 1 drop DAILY BOTH EYES Last administered on 12/11/18 08:01; Admin Dose 1 DROP; Start 12/06/18 at 11:00 Calcium Acetate (Phoslo) 667 mg WITH MEALS PO ; Start 12/06/18 at 12:00 Docusate Sodium (Colace) 200 mg DAILY PO ; Start 12/06/18 at 10:30; Status Hold Lactulose (Enulose) 20 gm BID PO Last administered on 12/11/18 21:00; Admin Dose 20 GM; Start 12/06/18 at 21:00 Montelukast Sodium (Singulair) 10 mg HS PO ; Start 12/06/18 at 21:00; Status Hold Multivit/Ca Carb/ B Cmplx/FA/Prenat (Mariaelena-Rosas) 1 tab DAILY PO Last administered on 12/11/18 08:00; Admin Dose 1 TAB; Start 12/06/18 at 10:30 Norepinephrine 250 ml @ 1.875 mls/ hr TITRATE IV Last administered on 12/07/18 13:25; Admin Dose 56.25 MLS/HR; Start 12/06/18 at 13:00 Atropine Sulfate (Atropine (Syringe)) 1 mg PRN PRN IV prn Last administered on 12/06/18 16:49; Admin Dose 1 MG; Start 12/06/18 at 16:00 Propofol 100 ml @ 3.045 mls/ hr Q12H IV Last administered on 12/07/18 02:24; Admin Dose 24.36 MLS/HR; Start 12/06/18 at 16:30 Midazolam HCl 50 ml @ 1 mls/hr TITRATE IV Last administered on 12/09/18 05:09; Admin Dose 4 MLS/HR; Start 12/06/18 at 16:30 Vancomycin HCl (Vanco Iv Per Pharmacy) VANCOMYCIN PER PHARMACY PER PROTOCOL XX ; Start 12/06/18 at 17:30 Cefepime HCl 50 ml @ 100 mls/hr Q24H IVPB Last administered on 12/11/18at 21:01; Admin Dose 100 MLS/HR; Start 12/06/18 at 21:00 Levetiracetam 100 ml @ 400 mls/hr Q12 IVPB Last administered on 12/11/18at 21:01; Admin Dose 400 MLS/HR; Start 12/06/18 at 21:00 Dopamine HCl/ Dextrose 250 ml @ 7.613 mls/ hr TITRATE IV Last administered on 12/09/18at 03:03; Admin Dose 11.419 MLS/HR; Start 12/06/18 at 17:30 Acetaminophen (Tylenol Supp) 650 mg Q4H PRN MO TEMP > 37C; Start 12/06/18 at 18:30 Meperidine HCl (Demerol) 12.5 mg Q4H PRN IV POST OPERATIVE SHIVERING; Start 12/06/18 at 18:30 Meperidine HCl (Demerol) 25 mg Q4H PRN IV POST OPERATIVE SHIVERING; Start 12/06/18 at 18:30 Eye Lubricant (Akwa Oint) 1 applic Q6 BOTH EYES Last administered on 12/12/18at 05:55; Admin Dose 1 APPLIC; Start 12/07/18 at 00:00 Eye Lubricant (Artificial Tears Oph) 2 drop Q6 BOTH EYES Last administered on 12/12/18at 05:54; Admin Dose 2 DROP; Start 12/07/18 at 00:00 Magnesium Sulfate 50 ml @ 25 mls/hr PRN PRN IVPB IV PROTOCOL; Start 12/06/18 at 20:30 Potassium Chloride 50 ml @ 25 mls/hr PRN PRN IVPB IV PROTOCOL Last administered on 12/07/18at 08:33; Admin Dose 25 MLS/HR; Start 12/06/18 at 20:30 Heparin Sodium (Porcine) (Heparin (1000 Units/ml)) 4,000 unit AFTER DIALYSIS CATHETER ; Start 12/06/18 at 22:00 Albumin Human 100 ml @ 100 mls/hr WITH DIALYSIS PRN IV SBP <90 DURING DIALYSIS; Start 12/06/18 at 22:00 Sodium Chloride (NS) -To prime the dialy... DIRECTED FOR HD PRN IV HD; Start 12/06/18 at 22:00 Phenytoin 200 mg/ Sodium Chloride 54 ml @ 112 mls/hr AM IV Last administered on 12/11/18at 09:20; Admin Dose 112 MLS/HR; Start 12/07/18 at 09:00 Phenytoin 200 mg/ Sodium Chloride 54 ml @ 112 mls/hr PC LUNCH IV Last administered on 12/11/18at 12:17; Admin Dose 112 MLS/HR; Start 12/07/18 at 12:30 Phenytoin 300 mg/ Sodium Chloride 56 ml @ 112 mls/hr 2100 IV Last administered on 12/11/18at 21:01; Admin Dose 112 MLS/HR; Start 12/07/18 at 21:00 Pantoprazole (Protonix Iv) 40 mg DAILY@06 IV Last administered on 12/12/18at 05:54; Admin Dose 40 MG; Start 12/07/18 at 06:00 Fentanyl 100 ml @ 2.5 mls/hr TITRATE IV Last administered on 12/08/18at 06:27; Admin Dose 2.5 MLS/HR; Start 12/08/18 at 06:30 Diagnostic Test (Pha) (Accu-Chek) 1 ea 02 XX Last administered on 12/12/18at 02:00; Admin Dose 1 EA; Start 12/09/18 at 02:00 Miscellaneous Information 1 ea NOTE XX ; Start 12/08/18 at 11:30 Glucose (Glutose) 15 gm Q15M PRN PO DECREASED GLUCOSE; Start 12/08/18 at 11:30 Glucose (Glutose) 22.5 gm Q15M PRN PO DECREASED GLUCOSE; Start 12/08/18 at 11:30 Dextrose (D50w Syringe) 25 ml Q15M PRN IV DECREASED GLUCOSE; Start 12/08/18 at 11:30 Dextrose (D50w Syringe) 50 ml Q15M PRN IV DECREASED GLUCOSE; Start 12/08/18 at 11:30 Glucagon (Glucagen) 1 mg Q15M PRN IM DECREASED GLUCOSE; Start 12/08/18 at 11:30 Glucose (Glutose) 15 gm Q15M PRN BUCCAL DECREASED GLUCOSE; Start 12/08/18 at 11:30 Collagenase (Santyl) 1 applic DAILY TOP Last administered on 12/11/18at 08:01; Admin Dose 1 APPLIC; Start 12/10/18 at 09:00 Insulin Aspart (Novolog Insulin Pen) NOVOLOG *MILD* ALGORI... Q6 SC Last administered on 12/12/18at 05:43; Admin Dose 5 UNIT; Start 12/10/18 at 12:00 Diagnostic Test (Pha) (Accu-Chek) 1 ea Q4 XX Last administered on 12/12/18at 05:40; Admin Dose 1 EA; Start 12/11/18 at 13:00 Total Parenteral Nutrition 1,000 ml @ 50 mls/hr Q20H IV Last administered on 12/11/18at 17:44; Admin Dose 50 MLS/HR; Start 12/11/18 at 18:00 Acetaminophen (Tylenol Liquid) 650 mg Q6H PRN GTB MILD PAIN(1-3)OR ELEVATED TEMP Last administered on 12/11/18at 21:00; Admin Dose 650 MG; Start 12/11/18 at 20:30 Albumin Human 100 ml @ 100 mls/hr ONCE ONCE IV ; Start 12/12/18 at 08:30; Stop 12/12/18 at 09:29 Sodium Chloride 500 ml @ 500 mls/hr Q1H ONCE IV ; Start 12/12/18 at 08:30; Stop 12/12/18 at 09:29 JJ BRANCH Dec 12, 2018 08:52
--- NOTE | 2018-12-12 09:17 | PN ---
Date/Time of Note Date/Time of Note DATE: 12/12/18 TIME: 09:15 Objective Vitals Vital Signs Date Temp Pulse Resp B/P (MAP) Pulse Ox O2 O2 Flow FiO2 Time Delivery Rate 12/12/18 75 17 98 30 08:10 12/12/18 101.5 87/40 (56) 08:00 12/11/18 [place] 20:00 l Ventilato r Intake and Output 12/11/18 12/11/18 12/12/18 1515:00 23:00 07:00 IntakeIntake Total 208 ml 400 ml 350 ml OutputOutput Total 3100 ml 300 ml 0 ml BalanceBalance -2892 ml 100 ml 350 ml Results Result Diagram: 12/11/18 0501 12/12/18 0520 Medications Medications Current Medications Ondansetron HCl (Zofran Inj) 4 mg Q6H PRN IV NAUSEA AND/OR VOMITING; Start 12/06/18 at 09:30 Albuterol (Proventil 0.083% (Neb)) 2.5 mg Q2H RESP THERAPY PRN NEB SHORTNESS OF BREATH; Start 12/06/18 at 09:30 Docusate Sodium (Colace) 100 mg Q12H PRN PO CONSTIPATION; Start 12/06/18 at 09:30 Magnesium Hydroxide (Milk Of Mag) 30 ml DAILY PRN PO CONSTIPATION; Start 12/06/18 at 09:30 Aspirin (Aspirin) 81 mg DAILY PO Last administered on 12/11/18at 08:00; Admin Dose 81 MG; Start 12/06/18 at 10:30 Brimonidine Tartrate (Alphagan 0.2%) 1 drop DAILY BOTH EYES Last administered on 12/11/18at 08:01; Admin Dose 1 DROP; Start 12/06/18 at 11:00 Calcium Acetate (Phoslo) 667 mg WITH MEALS PO ; Start 12/06/18 at 12:00 Docusate Sodium (Colace) 200 mg DAILY PO ; Start 12/06/18 at 10:30; Status Hold Lactulose (Enulose) 20 gm BID PO Last administered on 12/11/18at 21:00; Admin Dose 20 GM; Start 12/06/18 at 21:00 Montelukast Sodium (Singulair) 10 mg HS PO ; Start 12/06/18 at 21:00; Status Hold Multivit/Ca Carb/ B Cmplx/FA/Prenat (Mariaelena-Rosas) 1 tab DAILY PO Last adm inistered on 12/11/18 08:00; Admin Dose 1 TAB; Start 12/06/18 at 10:30 Norepinephrine 250 ml @ 1.875 mls/ hr TITRATE IV Last administered on 12/07/18 13:25; Admin Dose 56.25 MLS/HR; Start 12/06/18 at 13:00 Atropine Sulfate (Atropine (Syringe)) 1 mg PRN PRN IV prn Last administered on 12/06/18 16:49; Admin Dose 1 MG; Start 12/06/18 at 16:00 Propofol 100 ml @ 3.045 mls/ hr Q12H IV Last administered on 12/07/18 02:24; Admin Dose 24.36 MLS/HR; Start 12/06/18 at 16:30 Midazolam HCl 50 ml @ 1 mls/hr TITRATE IV Last administered on 12/09/18 05:09; Admin Dose 4 MLS/HR; Start 12/06/18 at 16:30 Vancomycin HCl (Vanco Iv Per Pharmacy) VANCOMYCIN PER PHARMACY PER PROTOCOL XX ; Start 12/06/18 at 17:30 Cefepime HCl 50 ml @ 100 mls/hr Q24H IVPB Last administered on 12/11/18 21:01; Admin Dose 100 MLS/HR; Start 12/06/18 at 21:00 Levetiracetam 100 ml @ 400 mls/hr Q12 IVPB Last administered on 12/11/18 21:01; Admin Dose 400 MLS/HR; Start 12/06/18 at 21:00 Dopamine HCl/ Dextrose 250 ml @ 7.613 mls/ hr TITRATE IV Last administered on 12/09/18 03:03; Admin Dose 11.419 MLS/HR; Start 12/06/18 at 17:30 Acetaminophen (Tylenol Supp) 650 mg Q4H PRN AR TEMP > 37C; Start 12/06/18 at 18:30 Meperidine HCl (Demerol) 12.5 mg Q4H PRN IV POST OPERATIVE SHIVERING; Start 12/06/18 at 18:30 Meperidine HCl (Demerol) 25 mg Q4H PRN IV POST OPERATIVE SHIVERING; Start 12/06/18 at 18:30 Eye Lubricant (Akwa Oint) 1 applic Q6 BOTH EYES Last administered on 12/12/18at 05:55; Admin Dose 1 APPLIC; Start 12/07/18 at 00:00 Eye Lubricant (Artificial Tears Oph) 2 drop Q6 BOTH EYES Last administered on 12/12/18at 05:54; Admin Dose 2 DROP; Start 12/07/18 at 00:00 Magnesium Sulfate 50 ml @ 25 mls/hr PRN PRN IVPB IV PROTOCOL; Start 12/06/18 at 20:30 Potassium Chloride 50 ml @ 25 mls/hr PRN PRN IVPB IV PROTOCOL Last administered on 12/07/18at 08:33; Admin Dose 25 MLS/HR; Start 12/06/18 at 20:30 Heparin Sodium (Porcine) (Heparin (1000 Units/ml)) 4,000 unit AFTER DIALYSIS CATHETER ; Start 12/06/18 at 22:00 Albumin Human 100 ml @ 100 mls/hr WITH DIALYSIS PRN IV SBP <90 DURING DIALYSIS; Start 12/06/18 at 22:00 Sodium Chloride (NS) -To prime the dialy... DIRECTED FOR HD PRN IV HD; Start 12/06/18 at 22:00 Phenytoin 200 mg/ Sodium Chloride 54 ml @ 112 mls/hr AM IV Last administered on 12/11/18at 09:20; Admin Dose 112 MLS/HR; Start 12/07/18 at 09:00 Phenytoin 200 mg/ Sodium Chloride 54 ml @ 112 mls/hr PC LUNCH IV Last administered on 12/11/18at 12:17; Admin Dose 112 MLS/HR; Start 12/07/18 at 12:30 Phenytoin 300 mg/ Sodium Chloride 56 ml @ 112 mls/hr 2100 IV Last administered on 12/11/18at 21:01; Admin Dose 112 MLS/HR; Start 12/07/18 at 21:00 Pantoprazole (Protonix Iv) 40 mg DAILY@06 IV Last administered on 12/12/18at 05:54; Admin Dose 40 MG; Start 12/07/18 at 06:00 Fentanyl 100 ml @ 2.5 mls/hr TITRATE IV Last administered on 12/08/18at 06:27; Admin Dose 2.5 MLS/HR; Start 12/08/18 at 06:30 Diagnostic Test (Pha) (Accu-Chek) 1 ea 02 XX Last administered on 12/12/18at 02:00; Admin Dose 1 EA; Start 12/09/18 at 02:00 Miscellaneous Information 1 ea NOTE XX ; Start 12/08/18 at 11:30 Glucose (Glutose) 15 gm Q15M PRN PO DECREASED GLUCOSE; Start 12/08/18 at 11:30 Glucose (Glutose) 22.5 gm Q15M PRN PO DECREASED GLUCOSE; Start 12/08/18 at 11:30 Dextrose (D50w Syringe) 25 ml Q15M PRN IV DECREASED GLUCOSE; Start 12/08/18 at 11:30 Dextrose (D50w Syringe) 50 ml Q15M PRN IV DECREASED GLUCOSE; Start 12/08/18 at 11:30 Glucagon (Glucagen) 1 mg Q15M PRN IM DECREASED GLUCOSE; Start 12/08/18 at 11:30 Glucose (Glutose) 15 gm Q15M PRN BUCCAL DECREASED GLUCOSE; Start 12/08/18 at 11:30 Collagenase (Santyl) 1 applic DAILY TOP Last administered on 12/11/18at 08:01; Admin Dose 1 APPLIC; Start 12/10/18 at 09:00 Diagnostic Test (Pha) (Accu-Chek) 1 ea Q4 XX Last administered on 12/12/18at 05:40; Admin Dose 1 EA; Start 12/11/18 at 13:00 Total Parenteral Nutrition 1,000 ml @ 50 mls/hr Q20H IV Last administered on 12/11/18 17:44; Admin Dose 50 MLS/HR; Start 12/11/18 at 18:00 Acetaminophen (Tylenol Liquid) 650 mg Q6H PRN GTB MILD PAIN(1-3)OR ELEVATED TEMP Last administered on 12/11/18 21:00; Admin Dose 650 MG; Start 12/11/18 at 20:30 Albumin Human 100 ml @ 100 mls/hr ONCE ONCE IV Last administered on 12/12/18 08:54; Admin Dose 100 MLS/HR; Start 12/12/18 at 08:30; Stop 12/12/18 at 09:29 Sodium Chloride 500 ml @ 500 mls/hr Q1H ONCE IV Last administered on 12/12/18at 08:50; Admin Dose 500 MLS/HR; Start 12/12/18 at 08:30; Stop 12/12/18 at 09:29 Insulin Aspart (Novolog Insulin Pen) NOVOLOG *MILD* ALGORI... Q4 SC ; Start 12/12/18 at 09:30 Insulin Glargine (Lantus) 15 units DAILY@0800 SC ; Start 12/12/18 at 09:30; Status UNV VTE Prophylaxis Risk score (from [facility])>0 risk: 9 SCD applied (from [facility]): Yes Lines/Catheters IV Catheter Type: Simpson in Place: No Assessment/Plan Hospital Course Subjective Patient still intubated, off sedation Objective Physical exam General: Patient is intubated Mentation: Patient is intubated but no purposeful movement Head: Normocephalic atraumatic Eyes: EOMI, left pupil is alfredo out chronically Neck: Supple, nontender, midline Respiratory: Coarse to auscultation bilaterally Cardiovascular: Tachycardic rate, no obvious murmurs Gastrointestinal: non-tender to palpation, bowel sounds heard. Neurological: No purposeful movement, occasional cough Skin: No new skin lesions Assessment/Plan 1. S/p Cardiac arrest with ROSC - Patient is currently finished with hypothermia protocol and off sedation and will continue monitoring neurological status - Patient initially with NSVT and given prolonged QT and placement on Amiodarone went into torsades then coded. Patient coded another 3 times total secondary to PEA arrest with ROSC - Cardiology on board and appreciate recommendations. Continue on Dopamine. may need? Cardiac cath if patient recovers - trops remain negative indicating non ischemic etiology for arrest Staph bacteremia -IV antibiotic -Infectious disease consulted Anemia -likely 2/2 traumatic simpson manipulation during cleaning, CBI done and now clear and stable, CBI stopped -Patient is likely iron deficient and reticulocyte count shows evidence of hypo- proliferation -Transfuse as needed Thrombocytopenia -Mild to moderate, monitor closely no obvious signs of bleeding Chronic blindness -Chronic left-sided blindness secondary to diabetic retinopathy, patient also has moderate to severe right-sided blindness secondary to diabetic retinopathy ?Arrhythmia, NSVT - Patient has ? afib and may have had afib with aberrancy but initial event was not captured - EKG showing prolonged QT - noted on Coumadin on med rec but INR normal at time of presentation. Will need to touch base with fam vs patient when she recovers on why she takes Coumadin Hypotension -cardiogenic and septic -off pressors for now, however BP low this AM, gave a little fluid/albumin and will monitor as patient is dialysis patient and do not want to overload -pressors as needed 4. Sepsis - likely aspiration and now bacteremic given multiple cardiac arrest episodes. - snider cultures drawn and continue on current broad antibiotics - femoral line in, will discuss with ID to DC and insert picc. 5. Hypokalemia - replacing 6. DM -Insulin drip changed to sliding scale - A1c noted and uncontrolled - now on TPN, so sugars higher, lantus/ISS adjusted 7. ESRD on HD - Nephrology,Dr. Reddy, on board and appreciate consultation. T/T/S scheduled 8. h/o CVA - continue current medications 9. HTN - currently requiring pressor support 10. Disposition -Monitor off sedation as tolerated. Assess for neurological recovery - Palliative on board. Family would like patient to remain full code for now -start TPN >40 minutes of critical care time spent with patient and family at bedside BOZENA PARK Dec 12, 2018 09:17
[2018-12-12] MEDS ORDERED: INSULIN ASPART [NOVOLOG] 3 ML PEN SC SCH (09:30)
--- NOTE | 2018-12-12 09:51 | CONS ---
Assessment/Plan Assessment/Plan Assessment/Plan (Daily) Patient is not significantly improved neurology has seen patient he has preserved brainstem activity and a withdrawal response CTh is without intracranial pathology. There is been no significant change in her overall neurological condition she does not respond to any simple tactile or verbal stim ulation she is not following any simple commands. Other medical problems Status post cardiac arrest with ROS see Staph bacteremia Thrombocytopenia Chronic Arrhythmia and SVT Hypotension End-stage renal disease on hemodialysis History of CVA Likelihood of full recovery, very unlikely We will have a family consult today. Consultation Date/Type/Reason Admit Date/Time Dec 06, 2018 at 12:45 Date/Time of Note DATE: 12/12/18 TIME: 09:47 Past Medical History Medical History: other (ESRD on HD for the past 8 years, Diabetes Mellitus, HTN, CVA with L sided residual weakness and ? afib on Coumadin ) Home Meds Reported Medications Insulin Lispro (Humalog) 100 U/Ml Vial, SQ SSI TID AND HS PRN 09/12/11 Multivit/Ca Carb/B Cmplx/Fa* (Mariaelena-Rosas*) 1 Tab Tab, 1 TAB PO DAILY 09/12/11 [Prostat 64] No Conflict Check, 30 ML PO TID 09/12/11 Esomeprazole Mag Trihydrate (Nexium) 40 Mg Capsule.dr, 40 MG PO DAILY 09/12/11 Metoprolol (Lopressor) 100 Mg Tablet, 100 MG PO BID 09/12/11 Benazepril Hcl* (Lotensin*) 40 Mg Tablet, 40 MG PO DAILY 09/12/11 [Lactulose] No Conflict Check, 30 ML PO DAILY PRN 09/12/11 Lactulose (Lactulose) 10 G/15 Ml Solution, 20 G PO BID 09/12/11 Glipizide* (Glucotrol XL*) 2.5 Mg Tabsr, 2.5 MG PO DAILY 09/12/11 Phenytoin* Sodium Extended (Dilantin*) 100 Mg Capsule, 300 MG PO HS 09/12/11 Phenytoin* Sodium Extended (Dilantin*) 100 Mg Capsule, 200 MG PO DAILY @0900 09/12/11 Phenytoin* Sodium Extended (Dilantin*) 100 Mg Capsule, 200 MG PO DAILY @1300 09/12/11 Phenytoin* Sodium Extended (Dilantin*) 100 Mg Capsule, 200 MG PO DAILY 1/11/12 Docusate Sodium* (Colace*) 100 Mg Capsule, 200 MG PO DAILY 09/12/11 Warfarin Sodium* (Coumadin*) 7.5 Mg Tablet, 7.5 MG PO Q OTHER DAY 06/01/11 Montelukast Sodium* (Singulair*) 10 Mg Tablet, 10 MG PO HS 06/01/11 Folic Acid/Vitamin B Comp W-C* (Nephro-Rosas Tablet*) 0.8 Mg Tablet, 0.8 MG PO DAILY 06/01/11 Aspirin (Aspirin) 81 Mg Tablet, 81 MG PO DAILY 06/01/11 Levetiracetam* (Keppra*) 500 Mg Tablet, 500 MG PO BID 06/01/11 Clonidine Hcl* (Clonidine Hcl*) 0.2 Mg Tablet 01/09/11 Metoclopramide Hcl* (Metoclopramide Hcl*) 10 Mg Tablet 01/09/11 Brimonidine Tartrate* (Brimonidine Tartrate*) 15 Ml Drops 01/09/11 Prednisolone Acetate (Pred Forte) 5 Ml Drops.susp 01/09/11 Nifedipine (Nifedical XL*) 30 Mg/Bottle Tab.osm.24 01/09/11 Calcium Acetate* (Phoslo*) 667 Mg Tablet 10/24/09 Medications Current Medications Ondansetron HCl (Zofran Inj) 4 mg Q6H PRN IV NAUSEA AND/OR VOMITING; Start 12/06/18 at 09:30 Albuterol (Proventil 0.083% (Neb)) 2.5 mg Q2H RESP THERAPY PRN NEB SHORTNESS OF BREATH; Start 12/06/18 at 09:30 Docusate Sodium (Colace) 100 mg Q12H PRN PO CONSTIPATION; Start 12/06/18 at 09:30 Magnesium Hydroxide (Milk Of Mag) 30 ml DAILY PRN PO CONSTIPATION; Start 12/06/18 at 09:30 Aspirin (Aspirin) 81 mg DAILY PO Last administered on 12/11/18at 08:00; Admin Dose 81 MG; Start 12/06/18 at 10:30 Brimonidine Tartrate (Alphagan 0.2%) 1 drop DAILY BOTH EYES Last administered on 12/11/18at 08:01; Admin Dose 1 DROP; Start 12/06/18 at 11:00 Calcium Acetate (Phoslo) 667 mg WITH MEALS PO ; Start 12/06/18 at 12:00 Docusate Sodium (Colace) 200 mg DAILY PO ; Start 12/06/18 at 10:30; Status Hold Lactulose (Enulose) 20 gm BID PO Last administered on 12/11/18 21:00; Admin Dose 20 GM; Start 12/06/18 at 21:00 Montelukast Sodium (Singulair) 10 mg HS PO ; Start 12/06/18 at 21:00; Status Hold Multivit/Ca Carb/ B Cmplx/FA/Prenat (Mariaelena-Rosas) 1 tab DAILY PO Last administered on 12/11/18 08:00; Admin Dose 1 TAB; Start 12/06/18 at 10:30 Norepinephrine 250 ml @ 1.875 mls/ hr TITRATE IV Last administered on 12/07/18 13:25; Admin Dose 56.25 MLS/HR; Start 12/06/18 at 13:00 Atropine Sulfate (Atropine (Syringe)) 1 mg PRN PRN IV prn Last administered on 12/06/18 16:49; Admin Dose 1 MG; Start 12/06/18 at 16:00 Propofol 100 ml @ 3.045 mls/ hr Q12H IV Last administered on 12/07/18 02:24; A dmin Dose 24.36 MLS/HR; Start 12/06/18 at 16:30 Midazolam HCl 50 ml @ 1 mls/hr TITRATE IV Last administered on 12/09/18 05:09; Admin Dose 4 MLS/HR; Start 12/06/18 at 16:30 Vancomycin HCl (Vanco Iv Per Pharmacy) VANCOMYCIN PER PHARMACY PER PROTOCOL XX ; Start 12/06/18 at 17:30 Cefepime HCl 50 ml @ 100 mls/hr Q24H IVPB Last administered on 12/11/18 21:01; Admin Dose 100 MLS/HR; Start 12/06/18 at 21:00 Levetiracetam 100 ml @ 400 mls/hr Q12 IVPB Last administered on 12/11/18 21:01; Admin Dose 400 MLS/HR; Start 12/06/18 at 21:00 Dopamine HCl/ Dextrose 250 ml @ 7.613 mls/ hr TITRATE IV Last administered on 4/9/19at 03:03; Admin Dose 11.419 MLS/HR; Start 12/06/18 at 17:30 Acetaminophen (Tylenol Supp) 650 mg Q4H PRN MI TEMP > 37C; Start 12/06/18 at 18:30 Meperidine HCl (Demerol) 12.5 mg Q4H PRN IV POST OPERATIVE SHIVERING; Start 12/06/18 at 18:30 Meperidine HCl (Demerol) 25 mg Q4H PRN IV POST OPERATIVE SHIVERING; Start 12/06/18 at 18:30 Eye Lubricant (Akwa Oint) 1 applic Q6 BOTH EYES Last administered on 12/12/18at 05:55; Admin Dose 1 APPLIC; Start 12/07/18 at 00:00 Eye Lubricant (Artificial Tears Oph) 2 drop Q6 BOTH EYES Last administered on 12/12/18at 05:54; Admin Dose 2 DROP; Start 12/07/18 at 00:00 Magnesium Sulfate 50 ml @ 25 mls/hr PRN PRN IVPB IV PROTOCOL; Start 12/06/18 at 20:30 Potassium Chloride 50 ml @ 25 mls/hr PRN PRN IVPB IV PROTOCOL Last administered on 12/07/18at 08:33; Admin Dose 25 MLS/HR; Start 12/06/18 at 20:30 Heparin Sodium (Porcine) (Heparin (1000 Units/ml)) 4,000 unit AFTER DIALYSIS CATHETER ; Start 12/06/18 at 22:00 Albumin Human 100 ml @ 100 mls/hr WITH DIALYSIS PRN IV SBP <90 DURING DIALYSIS; Start 12/06/18 at 22:00 Sodium Chloride (NS) -To prime the dialy... DIRECTED FOR HD PRN IV HD; Start 12/06/18 at 22:00 Phenytoin 200 mg/ Sodium Chloride 54 ml @ 112 mls/hr AM IV Last administered on 12/11/18at 09:20; Admin Dose 112 MLS/HR; Start 12/07/18 at 09:00 Phenytoin 200 mg/ Sodium Chloride 54 ml @ 112 mls/hr PC LUNCH IV Last administered on 12/11/18at 12:17; Admin Dose 112 MLS/HR; Start 12/07/18 at 12:30 Phenytoin 300 mg/ Sodium Chloride 56 ml @ 112 mls/hr 2100 IV Last administered on 12/11/18at 21:01; Admin Dose 112 MLS/HR; Start 12/07/18 at 21:00 Pantoprazole (Protonix Iv) 40 mg DAILY@06 IV Last administered on 12/12/18at 05:54; Admin Dose 40 MG; Start 12/07/18 at 06:00 Fentanyl 100 ml @ 2.5 mls/hr TITRATE IV Last administered on 12/08/18at 06:27; Admin Dose 2.5 MLS/HR; Start 12/08/18 at 06:30 Diagnostic Test (Pha) (Accu-Chek) 1 ea 02 XX Last administered on 12/12/18at 02:00; Admin Dose 1 EA; Start 12/09/18 at 02:00 Miscellaneous Information 1 ea NOTE XX ; Start 12/08/18 at 11:30 Glucose (Glutose) 15 gm Q15M PRN PO DECREASED GLUCOSE; Start 12/08/18 at 11:30 Glucose (Glutose) 22.5 gm Q15M PRN PO DECREASED GLUCOSE; Start 12/08/18 at 11:30 Dextrose (D50w Syringe) 25 ml Q15M PRN IV DECREASED GLUCOSE; Start 12/08/18 at 11:30 Dextrose (D50w Syringe) 50 ml Q15M PRN IV DECREASED GLUCOSE; Start 12/08/18 at 11:30 Glucagon (Glucagen) 1 mg Q15M PRN IM DECREASED GLUCOSE; Start 12/08/18 at 11:30 Glucose (Glutose) 15 gm Q15M PRN BUCCAL DECREASED GLUCOSE; Start 12/08/18 at 11:30 Collagenase (Santyl) 1 applic DAILY TOP Last administered on 12/11/18at 08:01; Admin Dose 1 APPLIC; Start 12/10/18 at 09:00 Diagnostic Test (Pha) (Accu-Chek) 1 ea Q4 XX Last administered on 12/12/18at 05:40; Admin Dose 1 EA; Start 12/11/18 at 13:00 Total Parenteral Nutrition 1,000 ml @ 50 mls/hr Q20H IV Last administered on 12/11/18at 17:44; Admin Dose 50 MLS/HR; Start 12/11/18 at 18:00 Acetaminophen (Tylenol Liquid) 650 mg Q6H PRN GTB MILD PAIN(1-3)OR ELEVATED TEMP Last administered on 12/11/18at 21:00; Admin Dose 650 MG; Start 12/11/18 at 20:30 Insulin Aspart (Novolog Insulin Pen) NOVOLOG *MILD* ALGORI... Q4 SC ; Start 12/12/18 at 09:30 Insulin Glargine (Lantus) 15 units DAILY@0800 SC ; Start 12/12/18 at 11:00 Allergies: Coded Allergies: No Known Allergy (Verified , 10/24/11) Past Surgical History Past Surgical Hx: other (fistula placement, C section) Social History Alcohol Use: none Smoking Status: Never smoker Drug Use: none Exam/Review of Systems Exam Vitals Vital Signs Date Temp Pulse Resp B/P (MAP) Pulse Ox O2 O2 Flow FiO2 Time Delivery Rate 12/12/18 75 17 98 30 08:10 12/12/18 101.5 87/40 (56) 08:00 12/11/18 [place] 20:00 l Ventilato r Intake and Output 12/11/18 12/11/18 12/12/18 1515:00 23:00 07:00 IntakeIntake Total 208 ml 400 ml 350 ml OutputOutput Total 3100 ml 300 ml 0 ml BalanceBalance -2892 ml 100 ml 350 ml Neurological: other (Unresponsive no respond to any verbal or tactile stimulation but cannot assess cranial nerves no spontaneous movement not overbreathing the ventilator no oculocephalics no gag at overbreathing the ventilator) Results Result Diagram: 12/11/18 0501 12/12/18 0520 Results 24hrs Laboratory Tests Test 12/11/18 11:35 12/11/18 12:16 12/11/18 14:22 12/11/18 17:42 Sodium Level 141 Potassium Level 4.2 Chloride Level 101 Carbon Dioxide Level 24 Anion Gap 16 H Blood Urea Nitrogen 24 H Creatinine 4.21 H Est Glomerular 11 L Filtrat Rate mL/min Glucose Level 160 Calcium Level 9.6 Phosphorus Level 3.7 Magnesium Level 2.4 Total Bilirubin 0.2 Direct Bilirubin 0.00 Indirect Bilirubin 0.2 Aspartate Amino 37 Transf (AST/SGOT) Alanine 41 Aminotransferase (AL T/SGPT) Alkaline Phosphatase 113 Total Protein 7.3 Albumin 3.9 Globulin 3.40 H Albumin/Globulin 1.14 Ratio Prealbumin 12.4 L Triglycerides Level 150 H Bedside Glucose 130 131 Phenytoin (Dilantin) 12.2 Level Test 12/12/18 00:37 12/12/18 05:20 12/12/18 05:39 Bedside Glucose 240 H 301 H Sodium Level 137 Potassium Level 3.8 Chloride Level 95 L Carbon Dioxide Level 28 Anion Gap 14 H Blood Urea Nitrogen 31 H Creatinine 3.52 H Est Glomerular 14 L Filtrat Rate mL/min Glucose Level 288 #H Calcium Level 9.0 Phosphorus Level 2.1 #L Magnesium Level 2.1 Random Vancomycin 13.9 Level Medications Medication Current Medications Ondansetron HCl (Zofran Inj) 4 mg Q6H PRN IV NAUSEA AND/OR VOMITING; Start 12/06/18 at 09:30 Albuterol (Proventil 0.083% (Neb)) 2.5 mg Q2H RESP THERAPY PRN NEB SHORTNESS OF BREATH; Start 12/06/18 at 09:30 Docusate Sodium (Colace) 100 mg Q12H PRN PO CONSTIPATION; Start 12/06/18 at 09:30 Magnesium Hydroxide (Milk Of Mag) 30 ml DAILY PRN PO CONSTIPATION; Start 12/06/18 at 09:30 Aspirin (Aspirin) 81 mg DAILY PO Last administered on 12/11/18at 08:00; Admin Dose 81 MG; Start 12/06/18 at 10:30 Brimonidine Tartrate (Alphagan 0.2%) 1 drop DAILY BOTH EYES Last administered on 12/11/18at 08:01; Admin Dose 1 DROP; Start 12/06/18 at 11:00 Calcium Acetate (Phoslo) 667 mg WITH MEALS PO ; Start 12/06/18 at 12:00 Docusate Sodium (Colace) 200 mg DAILY PO ; Start 12/06/18 at 10:30; Status Hold Lactulose (Enulose) 20 gm BID PO Last administered on 12/11/18at 21:00; Admin Dose 20 GM; Start 12/06/18 at 21:00 Montelukast Sodium (Singulair) 10 mg HS PO ; Start 12/06/18 at 21:00; Status Hold Multivit/Ca Carb/ B Cmplx/FA/Prenat (Mariaelena-Rosas) 1 tab DAILY PO Last administered on 12/11/18at 08:00; Admin Dose 1 TAB; Start 12/06/18 at 10:30 Norepinephrine 250 ml @ 1.875 mls/ hr TITRATE IV Last administered on 12/07/18 13:25; Admin Dose 56.25 MLS/HR; Start 12/06/18 at 13:00 Atropine Sulfate (Atropine (Syringe)) 1 mg PRN PRN IV prn Last administered on 12/06/18 16:49; Admin Dose 1 MG; Start 12/06/18 at 16:00 Propofol 100 ml @ 3.045 mls/ hr Q12H IV Last administered on 12/07/18 02:24; Admin Dose 24.36 MLS/HR; Start 12/06/18 at 16:30 Midazolam HCl 50 ml @ 1 mls/hr TITRATE IV Last administered on 12/09/18 05:09; Admin Dose 4 MLS/HR; Start 12/06/18 at 16:30 Vancomycin HCl (Vanco Iv Per Pharmacy) VANCOMYCIN PER PHARMACY PER PROTOCOL XX ; Start 12/06/18 at 17:30 Cefepime HCl 50 ml @ 100 mls/hr Q24H IVPB Last administered on 12/11/18 21:01; Admin Dose 100 MLS/HR; Start 12/06/18 at 21:00 Levetiracetam 100 ml @ 400 mls/hr Q12 IVPB Last administered on 12/11/18 21:01; Admin Dose 400 MLS/HR; Start 12/06/18 at 21:00 Dopamine HCl/ Dextrose 250 ml @ 7.613 mls/ hr TITRATE IV Last administered on 12/09/18 03:03; Admin Dose 11.419 MLS/HR; Start 12/06/18 at 17:30 Acetaminophen (Tylenol Supp) 650 mg Q4H PRN MI TEMP > 37C; Start 12/06/18 at 18:30 Meperidine HCl (Demerol) 12.5 mg Q4H PRN IV POST OPERATIVE SHIVERING; Start 12/06/18 at 18:30 Meperidine HCl (Demerol) 25 mg Q4H PRN IV POST OPERATIVE SHIVERING; Start 12/06/18 at 18:30 Eye Lubricant (Akwa Oint) 1 applic Q6 BOTH EYES Last administered on 12/12/18 05:55; Admin Dose 1 APPLIC; Start 12/07/18 at 00:00 Eye Lubricant (Artificial Tears Oph) 2 drop Q6 BOTH EYES Last administered on 12/12/18 05:54; Admin Dose 2 DROP; Start 12/07/18 at 00:00 Magnesium Sulfate 50 ml @ 25 mls/hr PRN PRN IVPB IV PROTOCOL; Start 12/06/18 at 20:30 Potassium Chloride 50 ml @ 25 mls/hr PRN PRN IVPB IV PROTOCOL Last administered on 12/07/18at 08:33; Admin Dose 25 MLS/HR; Start 12/06/18 at 20:30 Heparin Sodium (Porcine) (Heparin (1000 Units/ml)) 4,000 unit AFTER DIALYSIS CATHETER ; Start 12/06/18 at 22:00 Albumin Human 100 ml @ 100 mls/hr WITH DIALYSIS PRN IV SBP <90 DURING DIALYSIS; Start 12/06/18 at 22:00 Sodium Chloride (NS) -To prime the dialy... DIRECTED FOR HD PRN IV HD; Start 12/06/18 at 22:00 Phenytoin 200 mg/ Sodium Chloride 54 ml @ 112 mls/hr AM IV Last administered on 12/11/18 09:20; Admin Dose 112 MLS/HR; Start 12/07/18 at 09:00 Phenytoin 200 mg/ Sodium Chloride 54 ml @ 112 mls/hr PC LUNCH IV Last administered on 12/11/18 12:17; Admin Dose 112 MLS/HR; Start 12/07/18 at 12:30 Phenytoin 300 mg/ Sodium Chloride 56 ml @ 112 mls/hr 2100 IV Last administered on 12/11/18 21:01; Admin Dose 112 MLS/HR; Start 12/07/18 at 21:00 Pantoprazole (Protonix Iv) 40 mg DAILY@06 IV Last administered on 12/12/18 05:54; Admin Dose 40 MG; Start 12/07/18 at 06:00 Fentanyl 100 ml @ 2.5 mls/hr TITRATE IV Last administered on 12/08/18 06:27; Admin Dose 2.5 MLS/HR; Start 12/08/18 at 06:30 Diagnostic Test (Pha) (Accu-Chek) 1 ea 02 XX Last administered on 12/12/18at 02:00; Admin Dose 1 EA; Start 12/09/18 at 02:00 Miscellaneous Information 1 ea NOTE XX ; Start 12/08/18 at 11:30 Glucose (Glutose) 15 gm Q15M PRN PO DECREASED GLUCOSE; Start 12/08/18 at 11:30 Glucose (Glutose) 22.5 gm Q15M PRN PO DECREASED GLUCOSE; Start 12/08/18 at 11:30 Dextrose (D50w Syringe) 25 ml Q15M PRN IV DECREASED GLUCOSE; Start 12/08/18 at 11:30 Dextrose (D50w Syringe) 50 ml Q15M PRN IV DECREASED GLUCOSE; Start 12/08/18 at 11:30 Glucagon (Glucagen) 1 mg Q15M PRN IM DECREASED GLUCOSE; Start 12/08/18 at 11:30 Glucose (Glutose) 15 gm Q15M PRN BUCCAL DECREASED GLUCOSE; Start 12/08/18 at 11:30 Collagenase (Santyl) 1 applic DAILY TOP Last administered on 12/11/18at 08:01; Admin Dose 1 APPLIC; Start 12/10/18 at 09:00 Diagnostic Test (Pha) (Accu-Chek) 1 ea Q4 XX Last administered on 12/12/18at 05:40; Admin Dose 1 EA; Start 12/11/18 at 13:00 Total Parenteral Nutrition 1,000 ml @ 50 mls/hr Q20H IV Last administered on 12/11/18at 17:44; Admin Dose 50 MLS/HR; Start 12/11/18 at 18:00 Acetaminophen (Tylenol Liquid) 650 mg Q6H PRN GTB MILD PAIN(1-3)OR ELEVATED TEMP Last administered on 12/11/18at 21:00; Admin Dose 650 MG; Start 12/11/18 at 20:30 Insulin Aspart (Novolog Insulin Pen) NOVOLOG *MILD* ALGORI... Q4 SC ; Start 12/12/18 at 09:30 Insulin Glargine (Lantus) 15 units DAILY@0800 SC ; Start 12/12/18 at 11:00 CASSANDRA POSADAS Dec 12, 2018 09:51
--- NOTE | 2018-12-12 10:20 | CONS ---
Assessment/Plan Assessment/Plan Assessment/Plan (Daily) 1. Cardiopulmonary Arrest--initially secondary to NSVT vs. Afib with aberrancy, thereafter course complicated by Torsades with notable QT prolongation. - Currently on Hypothermia protocol 2. ESRD on HD TTS timo at [facility] 3. acute hypoxemic respiratory failure due to cardiac arrest s/p Intubation on ventilator 4. Shock--likely cardiogenic; cannot exclude obstructive though clinical picture not consistent with massive PE. 5. Sepsis 2/2 staph bacteremia 6. HTN heart disease 7.. DM Plan: HD ordered for saturday , pt will be on her original schedule TTS s/p hypothermia protocol , remains intubated Hb dropped to 6.9- plan for 2 U PRBC today, BP stable, afebrile will follow up Consultation Date/Type/Reason Admit Date/Time Dec 06, 2018 at 12:45 Initial Consult Date 12/06/18 Type of Consult NEPHROLOGY Requesting Provider: BOZENA PARK Date/Time of Note DATE: 12/12/18 TIME: 10:20 24 HR Interval Summary Free Text/Dictation Hb dropped to 6.9- plan for 2 U PRBC today, BP stable, afebrile Exam/Review of Systems Exam Vitals Vital Signs Date Temp Pulse Resp B/P (MAP) Pulse Ox O2 O2 Flow FiO2 Time Delivery Rate 12/12/18 75 17 98 30 08:10 12/12/18 101.5 87/40 (56) 08:00 12/11/18 Mechan[place] 20:00 l Ventilato r Intake and Output 12/11/18 12/11/18 12/12/18 1515:00 23:00 07:00 IntakeIntake Total 208 ml 400 ml 350 ml OutputOutput Total 3100 ml 300 ml 0 ml BalanceBalance -2892 ml 100 ml 350 ml Exam Constitutional: non-verbal Head: normocephalic, atraumatic Eyes: nl conjunctiva, nl lids ENMT: intubated Neck: supple, non-tender Respiratory: diminished breath sounds Cardiovascular: irregular rhythm Gastrointestinal: soft, nl liver, spleen, non-tender Extremities: 1+ pitting edema, no clubbing/no cyanosis Neurological: unresponsive Skin: nl turgor Results Result Diagram: 12/12/18 0939 12/12/18 0520 Results 24hrs Laboratory Tests Test 12/11/18 11:35 4/11/19 12:16 12/11/18 14:22 12/11/18 17:42 Sodium Level 141 Potassium Level 4.2 Chloride Level 101 Carbon Dioxide Level 24 Anion Gap 16 H Blood Urea Nitrogen 24 H Creatinine 4.21 H Est Glomerular 11 L Filtrat Rate mL/min Glucose Level 160 Calcium Level 9.6 Phosphorus Level 3.7 Magnesium Level 2.4 Total Bilirubin 0.2 Direct Bilirubin 0.00 Indirect Bilirubin 0.2 Aspartate Amino 37 Transf (AST/SGOT) Alanine 41 Aminotransferase (AL T/SGPT) Alkaline Phosphatase 113 Total Protein 7.3 Albumin 3.9 Globulin 3.40 H Albumin/Globulin 1.14 Ratio Prealbumin 12.4 L Triglycerides Level 150 H Bedside Glucose 130 131 Phenytoin (Dilantin) 12.2 Level Test 12/12/18 00:37 12/12/18 05:20 12/12/18 05:39 12/12/18 09:39 Bedside Glucose 240 H 301 H Sodium Level 137 Potassium Level 3.8 Chloride Level 95 L Carbon Dioxide Level 28 Anion Gap 14 H Blood Urea Nitrogen 31 H Creatinine 3.52 H Est Glomerular 14 L Filtrat Rate mL/min Glucose Level 288 #H Calcium Level 9.0 Phosphorus Level 2.1 #L Magnesium Level 2.1 Random Vancomycin 13.9 Level White Blood Count 9.1 Red Blood Count 2.27 L Hemoglobin 6.9 *L Hematocrit 22.7 L Mean Corpuscular 100.0 Volume Mean Corpuscular 30.4 Hemoglobin Mean Corpuscular 30.4 L Hemoglobin Concent Red Cell 14.8 H Distribution Width Platelet Count 124 L Mean Platelet Volume 10.8 H Immature 2.200 H Granulocytes % Neutrophils % 78.4 H Lymphocytes % 7.7 L Monocytes % 11.4 H Eosinophils % 0.1 Basophils % 0.2 Nucleated Red Blood 0.0 Cells % Immature 0.200 H Granulocytes # Neutrophils # 7.1 Lymphocytes # 0.7 L Monocytes # 1.0 H Eosinophils # 0.0 Basophils # 0.0 Nucleated Red Blood 0.0 Cells # Pathologist YES Review (Hematology) Medications Medication Current Medications Ondansetron HCl (Zofran Inj) 4 mg Q6H PRN IV NAUSEA AND/OR VOMITING; Start 12/06/18 at 09:30 Albuterol (Proventil 0.083% (Neb)) 2.5 mg Q2H RESP THERAPY PRN NEB SHORTNESS OF BREATH; Start 12/06/18 at 09:30 Docusate Sodium (Colace) 100 mg Q12H PRN PO CONSTIPATION; Start 12/06/18 at 09:30 Magnesium Hydroxide (Milk Of Mag) 30 ml DAILY PRN PO CONSTIPATION; Start 12/06/18 at 09:30 Aspirin (Aspirin) 81 mg DAILY PO Last administered on 12/11/18 08:00; Admin Dose 81 MG; Start 12/06/18 at 10:30 Brimonidine Tartrate (Alphagan 0.2%) 1 drop DAILY BOTH EYES Last administered on 12/11/18 08:01; Admin Dose 1 DROP; Start 12/06/18 at 11:00 Calcium Acetate (Phoslo) 667 mg WITH MEALS PO ; Start 12/06/18 at 12:00 Docusate Sodium (Colace) 200 mg DAILY PO ; Start 12/06/18 at 10:30; Status Hold Lactulose (Enulose) 20 gm BID PO Last administered on 12/11/18 21:00; Admin Dose 20 GM; Start 12/06/18 at 21:00 Montelukast Sodium (Singulair) 10 mg HS PO ; Start 12/06/18 at 21:00; Status Hold Multivit/Ca Carb/ B Cmplx/FA/Prenat (Mariaelena-Rosas) 1 tab DAILY PO Last administered on 12/11/18 08:00; Admin Dose 1 TAB; Start 12/06/18 at 10:30 Norepinephrine 250 ml @ 1.875 mls/ hr TITRATE IV Last administered on 12/07/18 13:25; Admin Dose 56.25 MLS/HR; Start 12/06/18 at 13:00 Atropine Sulfate (Atropine (Syringe)) 1 mg PRN PRN IV prn Last administered on 12/06/18 16:49; Admin Dose 1 MG; Start 12/06/18 at 16:00 Propofol 100 ml @ 3.045 mls/ hr Q12H IV Last administered on 12/07/18 02:24; Admin Dose 24.36 MLS/HR; Start 12/06/18 at 16:30 Midazolam HCl 50 ml @ 1 mls/hr TITRATE IV Last administered on 12/09/18 05:09; Admin Dose 4 MLS/HR; Start 12/06/18 at 16:30 Vancomycin HCl (Vanco Iv Per Pharmacy) VANCOMYCIN PER PHARMACY PER PROTOCOL XX ; Start 12/06/18 at 17:30 Cefepime HCl 50 ml @ 100 mls/hr Q24H IVPB Last administered on 12/11/18at 21:01; Admin Dose 100 MLS/HR; Start 12/06/18 at 21:00 Levetiracetam 100 ml @ 400 mls/hr Q12 IVPB Last administered on 12/11/18at 21:01; Admin Dose 400 MLS/HR; Start 12/06/18 at 21:00 Dopamine HCl/ Dextrose 250 ml @ 7.613 mls/ hr TITRATE IV Last administered on 12/09/18at 03:03; Admin Dose 11.419 MLS/HR; Start 12/06/18 at 17:30 Acetaminophen (Tylenol Supp) 650 mg Q4H PRN [place] TEMP > 37C; Start 12/06/18 at 18:30 Meperidine HCl (Demerol) 12.5 mg Q4H PRN IV POST OPERATIVE SHIVERING; Start 12/06/18 at 18:30 Meperidine HCl (Demerol) 25 mg Q4H PRN IV POST OPERATIVE SHIVERING; Start 12/06/18 at 18:30 Eye Lubricant (Akwa Oint) 1 applic Q6 BOTH EYES Last administered on 12/12/18at 05:55; Admin Dose 1 APPLIC; Start 12/07/18 at 00:00 Eye Lubricant (Artificial Tears Oph) 2 drop Q6 BOTH EYES Last administered on 12/12/18at 05:54; Admin Dose 2 DROP; Start 12/07/18 at 00:00 Magnesium Sulfate 50 ml @ 25 mls/hr PRN PRN IVPB IV PROTOCOL; Start 12/06/18 at 20:30 Potassium Chloride 50 ml @ 25 mls/hr PRN PRN IVPB IV PROTOCOL Last administered on 12/07/18at 08:33; Admin Dose 25 MLS/HR; Start 12/06/18 at 20:30 Heparin Sodium (Porcine) (Heparin (1000 Units/ml)) 4,000 unit AFTER DIALYSIS CATHETER ; Start 12/06/18 at 22:00 Albumin Human 100 ml @ 100 mls/hr WITH DIALYSIS PRN IV SBP <90 DURING DIALYSIS; Start 12/06/18 at 22:00 Sodium Chloride (NS) -To prime the dialy... DIRECTED FOR HD PRN IV HD; Start 12/06/18 at 22:00 Phenytoin 200 mg/ Sodium Chloride 54 ml @ 112 mls/hr AM IV Last administered on 12/11/18at 09:20; Admin Dose 112 MLS/HR; Start 12/07/18 at 09:00 Phenytoin 200 mg/ Sodium Chloride 54 ml @ 112 mls/hr PC LUNCH IV Last administered on 12/11/18at 12:17; Admin Dose 112 MLS/HR; Start 12/07/18 at 12:30 Phenytoin 300 mg/ Sodium Chloride 56 ml @ 112 mls/hr 2100 IV Last administered on 12/11/18at 21:01; Admin Dose 112 MLS/HR; Start 12/07/18 at 21:00 Pantoprazole (Protonix Iv) 40 mg DAILY@06 IV Last administered on 12/12/18at 05:54; Admin Dose 40 MG; Start 12/07/18 at 06:00 Fentanyl 100 ml @ 2.5 mls/hr TITRATE IV Last administered on 12/08/18at 06:27; Admin Dose 2.5 MLS/HR; Start 12/08/18 at 06:30 Diagnostic Test (Pha) (Accu-Chek) 1 ea 02 XX Last administered on 12/12/18at 02:00; Admin Dose 1 EA; Start 12/09/18 at 02:00 Miscellaneous Information 1 ea NOTE XX ; Start 12/08/18 at 11:30 Glucose (Glutose) 15 gm Q15M PRN PO DECREASED GLUCOSE; Start 12/08/18 at 11:30 Glucose (Glutose) 22.5 gm Q15M PRN PO DECREASED GLUCOSE; Start 12/08/18 at 11:30 Dextrose (D50w Syringe) 25 ml Q15M PRN IV DECREASED GLUCOSE; Start 12/08/18 at 11:30 Dextrose (D50w Syringe) 50 ml Q15M PRN IV DECREASED GLUCOSE; Start 12/08/18 at 11:30 Glucagon (Glucagen) 1 mg Q15M PRN IM DECREASED GLUCOSE; Start 12/08/18 at 11:30 Glucose (Glutose) 15 gm Q15M PRN BUCCAL DECREASED GLUCOSE; Start 12/08/18 at 11:30 Collagenase (Santyl) 1 applic DAILY TOP Last administered on 12/11/18at 08:01; Admin Dose 1 APPLIC; Start 12/10/18 at 09:00 Diagnostic Test (Pha) (Accu-Chek) 1 ea Q4 XX Last administered on 12/12/18at 05:40; Admin Dose 1 EA; Start 12/11/18 at 13:00 Total Parenteral Nutrition 1,000 ml @ 50 mls/hr Q20H IV Last administered on 12/11/18at 17:44; Admin Dose 50 MLS/HR; Start 12/11/18 at 18:00 Acetaminophen (Tylenol Liquid) 650 mg Q6H PRN GTB MILD PAIN(1-3)OR ELEVATED TEMP Last administered on 12/11/18at 21:00; Admin Dose 650 MG; Start 12/11/18 at 20:30 Insulin Aspart (Novolog Insulin Pen) NOVOLOG *MILD* ALGORI... Q4 SC ; Start 12/12/18 at 09:30 Insulin Glargine (Lantus) 15 units DAILY@0800 SC ; Start 12/12/18 at 11:00 LAZ MELGAR MD Dec 12, 2018 10:20
[2018-12-12] MEDS: LEVETIRACETAM 500 MG (PMX) 100 ML IVPB SCH ×2 (10:46→20:49)
[2018-12-12] MEDS ORDERED: SOD CHLORIDE 0.9% 250 ML IV* ONE (10:50)
[2018-12-12] MEDS: BRIMONIDINE 0.2% 5 ML BTL BOTH EYES SCH (10:52)
[2018-12-12] MEDS ORDERED: INSULIN GLARGINE [LANTus] (100 UNITS/ML) SYG SC SCH (11:00)
[2018-12-12] MEDS ORDERED: FUROSEMIDE 20 MG INJ IV PRN (11:00)
[2018-12-12] MEDS: SOD CHLORIDE 0.9% IV SCH ×2 (11:31→15:14)
[2018-12-12] MEDS: PHENYTOIN IV SCH ×2 (11:31→15:14)
--- NOTE | 2018-12-12 11:42 | CONS ---
Assessment/Plan Assessment/Plan Hospital Course 47 F c/ reported Hx of stroke and epilepsy, among other comorbidities, who is currently admitted to the [facility] ICU following cardiac arrest. Now s/p TTM. On neurologic examination, she has preserved brainstem activity and a withdrawal motor response.. Her prognosis for meaningful neurologic recovery is probably poor. CTH is without acute intracranial pathology, though is notable for severe atrophy and chronic subdurals. EEG is without epileptiform activity. P: Await goals of care conversations with medical decision makers Continue to limit sedating medications where possible OK to continue Dilantin and Keppra per ops for now Other medical management and supportive care per primary Will follow Consultation Date/Type/Reason Admit Date/Time Dec 06, 2018 at 12:45 Type of Consult Neurology Requesting Provider: BOZENA PARK Date/Time of Note DATE: 12/12/18 TIME: 11:42 24 HR Interval Summary Free Text/Dictation Continues critical care. There reportedly is a family meeting scheduled for today to discuss goals of care. Subjective hx not possible: pt non-verbal, pt critical Exam Vital Signs Vitals Vital Signs Date Temp Pulse Resp B/P (MAP) Pulse Ox O2 O2 Flow FiO2 Time Delivery Rate 12/12/18 80 23 100 30 09:10 12/12/18 101.5 87/40 (56) 08:00 12/11/18 Mechanica 20:00 l Ventilato r Intake and Output 12/11/18 12/11/18 12/12/18 1515:00 23:00 07:00 IntakeIntake Total 208 ml 400 ml 350 ml OutputOutput Total 3100 ml 300 ml 0 ml BalanceBalance -2892 ml 100 ml 350 ml Exam PE: Gen Appearance: No Apparent Distress HEENT: Intubated Cardiovascular: Regular rate Abdomen: Soft Extremities: Dry; edematous NE: The patient was comatose. Cranial nerve examination was limited by mental status. R pupil was sluggishly reactive to light; L pupil was hazy. Funduscopic examination was limited. Face was grossly symmetric, w/ present corneal and cough reflexes. Tone was normal. Muscle bulk was normal. I did not see fasciculations. The patient did not withdraw her extremities to noxious stimuli. Coordination and gait testing was limited by mental status. Arm and leg reflexes were symmetric. Sun's sign was absent. Plantar responses were extensor. APARNA AQUINO NP Dec 12, 2018 11:42
[2018-12-12] MEDS: LACTULOSE 30ML CUP PO SCH ×2 (11:44→20:49)
[2018-12-12] MEDS: ASPIRIN 81 MG TAB PO SCH (11:44)
[2018-12-12] MEDS: MULTIVIT/CA CARB/B CMPLX/FA TAB PO SCH (11:44)
[2018-12-12] MEDS: COLLAGENASE 5 GM (UD JAR) TOP SCH (11:45)
--- NOTE | 2018-12-12 12:32 | CONS ---
Consult Date/Type/Reason Admit Date/Time Dec 06, 2018 at 12:45 Initial Consult Date 12/06/18 Type of Consult Pulmonary Requesting Provider: BOZENA PARK Date/Time of Note DATE: 12/12/18 TIME: 12:26 Subjective Patient continues mechanical ventilation remains somnolent. Off sedation. Objective Vital Signs Date Temp Pulse Resp B/P (MAP) Pulse Ox O2 O2 Flow FiO2 Time Delivery Rate 12/12/18 78 18 99 30 11:10 12/12/18 101.5 87/40 (56) 08:00 12/11/18 Mechanica 20:00 l Ventilato r Intake and Output 12/11/18 12/11/18 12/12/18 1515:00 23:00 07:00 IntakeIntake Total 208 ml 400 ml 350 ml OutputOutput Total 3100 ml 300 ml 0 ml BalanceBalance -2892 ml 100 ml 350 ml Exam GENERAL: Obese young lady orally intubated on mechanical ventilation VITAL SIGNS: per chart NECK: Supple. No JVD or lymphadenopathy. CARDIAC EXAM: S1, S2. No added sounds or murmurs. CHEST: Diminished air entry bilaterally ABDOMEN: Soft, nontender. No guarding or rebound. EXTREMITIES: No cyanosis, clubbing or edema. NEUROLOGIC: Unable to assess Vent Setting Ventilator Support Mode: AC, VC plus Fraction of Inspired Oxygen pe: 30 Positive End Expiratory Pressu: 5.0 Results/Medications Result Diagram: 12/12/18 0939 12/12/18 0520 Results 24 hrs Laboratory Tests Test 12/11/18 14:22 12/11/18 17:42 12/12/18 00:37 12/12/18 05:20 Phenytoin (Dilantin) 12.2 Level Bedside Glucose 131 240 H Sodium Level 137 Potassium Level 3.8 Chloride Level 95 L Carbon Dioxide Level 28 Anion Gap 14 H Blood Urea Nitrogen 31 H Creatinine 3.52 H Est Glomerular 14 L Filtrat Rate mL/min Glucose Level 288 #H Calcium Level 9.0 Phosphorus Level 2.1 #L Magnesium Level 2.1 Random Vancomycin 13.9 Level Test 12/12/18 05:39 12/12/18 09:39 12/12/18 10:55 Bedside Glucose 301 H 344 H White Blood Count 9.1 Red Blood Count 2.27 L Hemoglobin 6.9 *L Hematocrit 22.7 L Mean Corpuscular 100.0 Volume Mean Corpuscular 30.4 Hemoglobin Mean Corpuscular 30.4 L Hemoglobin Concent Red Cell 14.8 H Distribution Width Platelet Count 124 L Mean Platelet Volume 10.8 H Immature 2.200 H Granulocytes % Neutrophils % 78.4 H Segmented 77 Neutrophils % (Manual) Band Neutrophils % 9 H (Manual) Lymphocytes % 7.7 L Lymphocytes % 8 L (Manual) Monocytes % 11.4 H Monocytes % (Manual) 6 Eosinophils % 0.1 Basophils % 0.2 Nucleated Red Blood 0.0 Cells % Immature 0.200 H Granulocytes # Neutrophils # 7.1 Neutrophils # 7.1 (Manual) Band Neutrophils # 0.8 H Lymphocytes (Manual) 0.7 L Lymphocytes # 0.7 L Monocytes # 1.0 H Monocytes # (Manual) 0.5 Eosinophils # 0.0 Basophils # 0.0 Nucleated Red Blood 0.0 Cells # Pathologist YES Review (Hematology) Platelet Estimate DECREASED Polychromasia 3+ Poikilocytosis 1+ Anisocytosis 1+ Microcytosis 1+ Tear Drop Cells 1+ Medications Current Medications Ondansetron HCl (Zofran Inj) 4 mg Q6H PRN IV NAUSEA AND/OR VOMITING; Start 12/06/18 at 09:30 Albuterol (Proventil 0.083% (Neb)) 2.5 mg Q2H RESP THERAPY PRN NEB SHORTNESS OF BREATH; Start 12/06/18 at 09:30 Docusate Sodium (Colace) 100 mg Q12H PRN PO CONSTIPATION; Start 12/06/18 at 09:30 Magnesium Hydroxide (Milk Of Mag) 30 ml DAILY PRN PO CONSTIPATION; Start 12/06/18 at 09:30 Aspirin (Aspirin) 81 mg DAILY PO Last administered on 12/12/18at 11:44; Admin Dose 81 MG; Start 12/06/18 at 10:30 Brimonidine Tartrate (Alphagan 0.2%) 1 drop DAILY BOTH EYES Last administered on 12/12/18at 10:52; Admin Dose 1 DROP; Start 12/06/18 at 11:00 Calcium Acetate (Phoslo) 667 mg WITH MEALS PO Last administered on 12/12/18at 11:49; Admin Dose 667 MG; Start 12/06/18 at 12:00 Docusate Sodium (Colace) 200 mg DAILY PO ; Start 12/06/18 at 10:30; Status Hold Lactulose (Enulose) 20 gm BID PO Last administered on 12/12/18 11:44; Admin Dose 20 GM; Start 12/06/18 at 21:00 Montelukast Sodium (Singulair) 10 mg HS PO ; Start 12/06/18 at 21:00; Status Hold Multivit/Ca Carb/ B Cmplx/FA/Prenat (Mariaelena-Rosas) 1 tab DAILY PO Last administered on 12/12/18 11:44; Admin Dose 1 TAB; Start 12/06/18 at 10:30 Norepinephrine 250 ml @ 1.875 mls/ hr TITRATE IV Last administered on 12/07/18 13:25; Admin Dose 56.25 MLS/HR; Start 12/06/18 at 13:00 Atropine Sulfate (Atropine (Syringe)) 1 mg PRN PRN IV prn Last administered on 12/06/18 16:49; Admin Dose 1 MG; Start 12/06/18 at 16:00 Propofol 100 ml @ 3.045 mls/ hr Q12H IV Last administered on 12/07/18 02:24; Admin Dose 24.36 MLS/HR; Start 12/06/18 at 16:30 Midazolam HCl 50 ml @ 1 mls/hr TITRATE IV Last administered on 12/09/18 05:09; Admin Dose 4 MLS/HR; Start 12/06/18 at 16:30 Vancomycin HCl (Vanco Iv Per Pharmacy) VANCOMYCIN PER PHARMACY PER PROTOCOL XX ; Start 12/06/18 at 17:30 Cefepime HCl 50 ml @ 100 mls/hr Q24H IVPB Last administered on 12/11/18 21:01; Admin Dose 100 MLS/HR; Start 12/06/18 at 21:00 Levetiracetam 100 ml @ 400 mls/hr Q12 IVPB Last administered on 12/12/18 10:46; Admin Dose 400 MLS/HR; Start 12/06/18 at 21:00 Dopamine HCl/ Dextrose 250 ml @ 7.613 mls/ hr TITRATE IV Last administered on 12/09/18 03:03; Admin Dose 11.419 MLS/HR; Start 12/06/18 at 17:30 Acetaminophen (Tylenol Supp) 650 mg Q4H PRN [place] TEMP > 37C; Start 12/06/18 at 18:30 Meperidine HCl (Demerol) 12.5 mg Q4H PRN IV POST OPERATIVE SHIVERING; Start 12/06/18 at 18:30 Meperidine HCl (Demerol) 25 mg Q4H PRN IV POST OPERATIVE SHIVERING; Start 12/06/18 at 18:30 Eye Lubricant (Akwa Oint) 1 applic Q6 BOTH EYES Last administered on 12/12/18at 12:01; Admin Dose 1 APPLIC; Start 12/07/18 at 00:00 Eye Lubricant (Artificial Tears Oph) 2 drop Q6 BOTH EYES Last administered on 12/12/18at 11:47; Admin Dose 2 DROP; Start 12/07/18 at 00:00 Magnesium Sulfate 50 ml @ 25 mls/hr PRN PRN IVPB IV PROTOCOL; Start 12/06/18 at 20:30 Potassium Chloride 50 ml @ 25 mls/hr PRN PRN IVPB IV PROTOCOL Last administered on 12/07/18at 08:33; Admin Dose 25 MLS/HR; Start 12/06/18 at 20:30 Heparin Sodium (Porcine) (Heparin (1000 Units/ml)) 4,000 unit AFTER DIALYSIS CATHETER ; Start 12/06/18 at 22:00 Albumin Human 100 ml @ 100 mls/hr WITH DIALYSIS PRN IV SBP <90 DURING DIALYSIS; Start 12/06/18 at 22:00 Sodium Chloride (NS) -To prime the dialy... DIRECTED FOR HD PRN IV HD; Start 12/06/18 at 22:00 Phenytoin 200 mg/ Sodium Chloride 54 ml @ 112 mls/hr AM IV Last administered on 12/12/18 11:31; Admin Dose 112 MLS/HR; Start 12/07/18 at 09:00 Phenytoin 200 mg/ Sodium Chloride 54 ml @ 112 mls/hr PC LUNCH IV Last administered on 12/11/18 12:17; Admin Dose 112 MLS/HR; Start 12/07/18 at 12:30 Phenytoin 300 mg/ Sodium Chloride 56 ml @ 112 mls/hr 2100 IV Last administered on 12/11/18 21:01; Admin Dose 112 MLS/HR; Start 12/07/18 at 21:00 Fentanyl 100 ml @ 2.5 mls/hr TITRATE IV Last administered on 12/08/18at 06:27; Admin Dose 2.5 MLS/HR; Start 12/08/18 at 06:30 Diagnostic Test (Pha) (Accu-Chek) 1 ea 02 XX Last administered on 12/12/18at 02:00; Admin Dose 1 EA; Start 12/09/18 at 02:00 Miscellaneous Information 1 ea NOTE XX ; Start 12/08/18 at 11:30 Glucose (Glutose) 15 gm Q15M PRN PO DECREASED GLUCOSE; Start 12/08/18 at 11:30 Glucose (Glutose) 22.5 gm Q15M PRN PO DECREASED GLUCOSE; Start 12/08/18 at 11:30 Dextrose (D50w Syringe) 25 ml Q15M PRN IV DECREASED GLUCOSE; Start 12/08/18 at 11:30 Dextrose (D50w Syringe) 50 ml Q15M PRN IV DECREASED GLUCOSE; Start 12/08/18 at 11:30 Glucagon (Glucagen) 1 mg Q15M PRN IM DECREASED GLUCOSE; Start 12/08/18 at 11:30 Glucose (Glutose) 15 gm Q15M PRN BUCCAL DECREASED GLUCOSE; Start 12/08/18 at 11:30 Collagenase (Santyl) 1 applic DAILY TOP Last administered on 12/12/18at 11:45; Admin Dose 1 APPLIC; Start 12/10/18 at 09:00 Diagnostic Test (Pha) (Accu-Chek) 1 ea Q4 XX Last administered on 12/12/18at 05:40; Admin Dose 1 EA; Start 12/11/18 at 13:00 Total Parenteral Nutrition 1,000 ml @ 50 mls/hr Q20H IV Last administered on 12/11/18at 17:44; Admin Dose 50 MLS/HR; Start 12/11/18 at 18:00 Acetaminophen (Tylenol Liquid) 650 mg Q6H PRN GTB MILD PAIN(1-3)OR ELEVATED TEMP Last administered on 12/11/18at 21:00; Admin Dose 650 MG; Start 12/11/18 at 20:30 Insulin Glargine (Lantus) 15 units DAILY@0800 SC Last administered on 12/12/18at 11:44; Admin Dose 15 UNITS; Start 12/12/18 at 11:00 Famotidine (Pepcid Iv) 20 mg Q48H IV ; Start 12/13/18 at 07:00 Furosemide (Lasix) 20 mg ONCE PRN IV blood transfusion; Start 12/12/18 at 11:00; Stop 12/12/18 at 19:00 Fluconazole/ Sodium Chloride 50 ml @ 50 mls/hr Q24H IVPB ; Start 12/12/18 at 14:00 Insulin Aspart (Novolog Insulin Pen) NOVOLOG *MODERATE* ALGORITHM Q4 SC ; Start 12/12/18 at 13:00 Vancomycin HCl 250 ml @ 125 mls/hr ONCE IVPB ; Start 12/12/18 at 18:00; Stop 12/12/18 at 18:01 Assessment/Plan Hospital Course (Demo Recall) Assessment 1. Cardiopulmonary arrest 2. Recent seizure history of seizures 3. Significant anemia questionable GI bleed 4. Renal insufficiency possible ATN injury 5. Acute hypoxemic respiratory failure likely secondary to aspiration pneumonia versus ARDS Plan 1. Continue mechanical ventilation 2. Neurology recommendations and family conference regarding goals of care 3. Continue tube feeding as tolerated Patient unlikely to be extubated from mechanical ventilation. Critical care time 40 minutes. SEDRICK MORALEZ MD, [facility] Dec 12, 2018 12:32
--- NOTE | 2018-12-12 12:52 | CONS ---
Assessment/Plan Assessment/Plan Hospital Course (Demo Recall) Patient continues to spike fevers. WBC today 9.1 hemoglobin 6.9 neutrophils 78.4. Sputum culture grew Rosa albicans, repeat blood cultures negative Blood cultures on admission grew oxacillin sensitive staph aureus, repeat blood cultures negative urine culture negative sputum culture pending CT brain yesterday revealed no acute intracranial bleed Indwelling: Upper extremity AV fistula, endotracheal tube, orogastric tube, left IJ central line, femoral triple-lumen catheter Microbiology: Blood culture on December 06 grew oxacillin sensitive staph aureus, repeat blood cultures negative, urine culture negative Antimicrobials: Cefepime Physical examination: Obese chronically ill-appearing middle-aged woman who is noncommunicative intubated in no distress. Head atraumatic normocephalic neck is obese chest rise symmetrical breath sounds diminished bases heart S1-S2 abdomen obese soft bowel sounds hypoactive extremities with trace edema Assessment: 1. Severe sepsis status post shock 2. Bilateral pneumonia 3. Oxacillin sensitive staph aureus bacteremia 4. Status post cardiac arrest with hypothermia protocol 5. Diabetes 6. Seizure disorder 7. End-stage renal disease, hemodialysis dependent 8. Cardiomyopathy with ejection fraction of 35% Plan: Clinically unchanged, with ongoing fevers, repeat blood cultures negative, will start on antifungals, consider to change lines Consultation Date/Type/Reason Admit Date/Time Dec 06, 2018 at 12:45 Initial Consult Date 12/06/18 Type of Consult id Requesting Provider: BOZENA PARK Date/Time of Note DATE: 12/12/18 TIME: 12:50 Exam/Review of Systems Exam Vitals Vital Signs Date Temp Pulse Resp B/P (MAP) Pulse Ox O2 O2 Flow FiO2 Time Delivery Rate 12/12/18 78 18 99 30 11:10 12/12/18 101.5 87/40 (56) 08:00 12/11/18 [place] 20:00 l Ventilato r Intake and Output 12/11/18 12/11/18 12/12/18 1515:00 23:00 07:00 IntakeIntake Total 208 ml 400 ml 350 ml OutputOutput Total 3100 ml 300 ml 0 ml BalanceBalance -2892 ml 100 ml 350 ml Results Result Diagram: 12/12/18 0939 12/12/18 0520 Results 24hrs Laboratory Tests Test 12/11/18 14:22 12/11/18 17:42 12/12/18 00:37 12/12/18 05:20 Phenytoin (Dilantin) 12.2 Level Bedside Glucose 131 240 H Sodium Level 137 Potassium Level 3.8 Chloride Level 95 L Carbon Dioxide Level 28 Anion Gap 14 H Blood Urea Nitrogen 31 H Creatinine 3.52 H Est Glomerular 14 L Filtrat Rate mL/min Glucose Level 288 #H Calcium Level 9.0 Phosphorus Level 2.1 #L Magnesium Level 2.1 Random Vancomycin 13.9 Level Test 12/12/18 05:39 12/12/18 09:39 12/12/18 10:55 Bedside Glucose 301 H 344 H White Blood Count 9.1 Red Blood Count 2.27 L Hemoglobin 6.9 *L Hematocrit 22.7 L Mean Corpuscular 100.0 Volume Mean Corpuscular 30.4 Hemoglobin Mean Corpuscular 30.4 L Hemoglobin Concent Red Cell 14.8 H Distribution Width Platelet Count 124 L Mean Platelet Volume 10.8 H Immature 2.200 H Granulocytes % Neutrophils % 78.4 H Segmented 77 Neutrophils % (Manual) Band Neutrophils % 9 H (Manual) Lymphocytes % 7.7 L Lymphocytes % 8 L (Manual) Monocytes % 11.4 H Monocytes % (Manual) 6 Eosinophils % 0.1 Basophils % 0.2 Nucleated Red Blood 0.0 Cells % Immature 0.200 H Granulocytes # Neutrophils # 7.1 Neutrophils # 7.1 (Manual) Band Neutrophils # 0.8 H Lymphocytes (Manual) 0.7 L Lymphocytes # 0.7 L Monocytes # 1.0 H Monocytes # (Manual) 0.5 Eosinophils # 0.0 Basophils # 0.0 Nucleated Red Blood 0.0 Cells # Pathologist YES Review (Hematology) Platelet Estimate DECREASED Polychromasia 3+ Poikilocytosis 1+ Anisocytosis 1+ Microcytosis 1+ Tear Drop Cells 1+ Medications Medication Current Medications Ondansetron HCl (Zofran Inj) 4 mg Q6H PRN IV NAUSEA AND/OR VOMITING; Start 12/06/18 at 09:30 Albuterol (Proventil 0.083% (Neb)) 2.5 mg Q2H RESP THERAPY PRN NEB SHORTNESS OF BREATH; Start 12/06/18 at 09:30 Docusate Sodium (Colace) 100 mg Q12H PRN PO CONSTIPATION; Start 12/06/18 at 09:30 Magnesium Hydroxide (Milk Of Mag) 30 ml DAILY PRN PO CONSTIPATION; Start 12/06/18 at 09:30 Aspirin (Aspirin) 81 mg DAILY PO Last administered on 12/12/18 11:44; Admin Dose 81 MG; Start 12/06/18 at 10:30 Brimonidine Tartrate (Alphagan 0.2%) 1 drop DAILY BOTH EYES Last administered on 12/12/18 10:52; Admin Dose 1 DROP; Start 12/06/18 at 11:00 Calcium Acetate (Phoslo) 667 mg WITH MEALS PO Last administered on 12/12/18 11:49; Admin Dose 667 MG; Start 12/06/18 at 12:00 Docusate Sodium (Colace) 200 mg DAILY PO ; Start 12/06/18 at 10:30; Status Hold Lactulose (Enulose) 20 gm BID PO Last administered on 12/12/18 11:44; Admin Dose 20 GM; Start 12/06/18 at 21:00 Montelukast Sodium (Singulair) 10 mg HS PO ; Start 12/06/18 at 21:00; Status Hold Multivit/Ca Carb/ B Cmplx/FA/Prenat (Mariaelena-Rosas) 1 tab DAILY PO Last administered on 12/12/18 11:44; Admin Dose 1 TAB; Start 12/06/18 at 10:30 Norepinephrine 250 ml @ 1.875 mls/ hr TITRATE IV Last administered on 12/07/18 13:25; Admin Dose 56.25 MLS/HR; Start 12/06/18 at 13:00 Atropine Sulfate (Atropine (Syringe)) 1 mg PRN PRN IV prn Last administered on 12/06/18 16:49; Admin Dose 1 MG; Start 12/06/18 at 16:00 Propofol 100 ml @ 3.045 mls/ hr Q12H IV Last administered on 12/07/18 02:24; Admin Dose 24.36 MLS/HR; Start 12/06/18 at 16:30 Midazolam HCl 50 ml @ 1 mls/hr TITRATE IV Last administered on 12/09/18 05:09; Admin Dose 4 MLS/HR; Start 12/06/18 at 16:30 Vancomycin HCl (Vanco Iv Per Pharmacy) VANCOMYCIN PER PHARMACY PER PROTOCOL XX ; Start 12/06/18 at 17:30 Cefepime HCl 50 ml @ 100 mls/hr Q24H IVPB Last administered on 12/11/18at 21:01; Admin Dose 100 MLS/HR; Start 12/06/18 at 21:00 Levetiracetam 100 ml @ 400 mls/hr Q12 IVPB Last administered on 12/12/18at 10:46; Admin Dose 400 MLS/HR; Start 12/06/18 at 21:00 Dopamine HCl/ Dextrose 250 ml @ 7.613 mls/ hr TITRATE IV Last administered on 12/09/18at 03:03; Admin Dose 11.419 MLS/HR; Start 12/06/18 at 17:30 Acetaminophen (Tylenol Supp) 650 mg Q4H PRN IA TEMP > 37C; Start 12/06/18 at 18:30 Meperidine HCl (Demerol) 12.5 mg Q4H PRN IV POST OPERATIVE SHIVERING; Start 12/06/18 at 18:30 Meperidine HCl (Demerol) 25 mg Q4H PRN IV POST OPERATIVE SHIVERING; Start 12/06/18 at 18:30 Eye Lubricant (Akwa Oint) 1 applic Q6 BOTH EYES Last administered on 12/12/18at 12:01; Admin Dose 1 APPLIC; Start 12/07/18 at 00:00 Eye Lubricant (Artificial Tears Oph) 2 drop Q6 BOTH EYES Last administered on 12/12/18at 11:47; Admin Dose 2 DROP; Start 12/07/18 at 00:00 Magnesium Sulfate 50 ml @ 25 mls/hr PRN PRN IVPB IV PROTOCOL; Start 12/06/18 at 20:30 Potassium Chloride 50 ml @ 25 mls/hr PRN PRN IVPB IV PROTOCOL Last administered on 12/07/18at 08:33; Admin Dose 25 MLS/HR; Start 12/06/18 at 20:30 Heparin Sodium (Porcine) (Heparin (1000 Units/ml)) 4,000 unit AFTER DIALYSIS CATHETER ; Start 12/06/18 at 22:00 Albumin Human 100 ml @ 100 mls/hr WITH DIALYSIS PRN IV SBP <90 DURING DIALYSIS; Start 12/06/18 at 22:00 Sodium Chloride (NS) -To prime the dialy... DIRECTED FOR HD PRN IV HD; Start 12/06/18 at 22:00 Phenytoin 200 mg/ Sodium Chloride 54 ml @ 112 mls/hr AM IV Last administered on 12/12/18at 11:31; Admin Dose 112 MLS/HR; Start 12/07/18 at 09:00 Phenytoin 200 mg/ Sodium Chloride 54 ml @ 112 mls/hr PC LUNCH IV Last administered on 12/11/18at 12:17; Admin Dose 112 MLS/HR; Start 12/07/18 at 12:30 Phenytoin 300 mg/ Sodium Chloride 56 ml @ 112 mls/hr 2100 IV Last administered on 12/11/18at 21:01; Admin Dose 112 MLS/HR; Start 12/07/18 at 21:00 Fentanyl 100 ml @ 2.5 mls/hr TITRATE IV Last administered on 12/08/18at 06:27; Admin Dose 2.5 MLS/HR; Start 12/08/18 at 06:30 Diagnostic Test (Pha) (Accu-Chek) 1 ea 02 XX Last administered on 12/12/18at 02:00; Admin Dose 1 EA; Start 12/09/18 at 02:00 Miscellaneous Information 1 ea NOTE XX ; Start 12/08/18 at 11:30 Glucose (Glutose) 15 gm Q15M PRN PO DECREASED GLUCOSE; Start 12/08/18 at 11:30 Glucose (Glutose) 22.5 gm Q15M PRN PO DECREASED GLUCOSE; Start 12/08/18 at 11:30 Dextrose (D50w Syringe) 25 ml Q15M PRN IV DECREASED GLUCOSE; Start 12/08/18 at 11:30 Dextrose (D50w Syringe) 50 ml Q15M PRN IV DECREASED GLUCOSE; Start 12/08/18 at 11:30 Glucagon (Glucagen) 1 mg Q15M PRN IM DECREASED GLUCOSE; Start 12/08/18 at 11:30 Glucose (Glutose) 15 gm Q15M PRN BUCCAL DECREASED GLUCOSE; Start 12/08/18 at 11:30 Collagenase (Santyl) 1 applic DAILY TOP Last administered on 12/12/18at 11:45; Admin Dose 1 APPLIC; Start 12/10/18 at 09:00 Diagnostic Test (Pha) (Accu-Chek) 1 ea Q4 XX Last administered on 12/12/18at 05:40; Admin Dose 1 EA; Start 12/11/18 at 13:00 Total Parenteral Nutrition 1,000 ml @ 50 mls/hr Q20H IV Last administered on 12/11/18at 17:44; Admin Dose 50 MLS/HR; Start 12/11/18 at 18:00 Acetaminophen (Tylenol Liquid) 650 mg Q6H PRN GTB MILD PAIN(1-3)OR ELEVATED TEMP Last administered on 12/11/18at 21:00; Admin Dose 650 MG; Start 12/11/18 at 20:30 Insulin Glargine (Lantus) 15 units DAILY@0800 SC Last administered on 12/12/18at 11:44; Admin Dose 15 UNITS; Start 12/12/18 at 11:00 Famotidine (Pepcid Iv) 20 mg Q48H IV ; Start 12/13/18 at 07:00 Furosemide (Lasix) 20 mg ONCE PRN IV blood transfusion; Start 12/12/18 at 11:00; Stop 12/12/18 at 19:00 Fluconazole/ Sodium Chloride 50 ml @ 50 mls/hr Q24H IVPB ; Start 12/12/18 at 14:00 Insulin Aspart (Novolog Insulin Pen) NOVOLOG *MODERATE* ALGORITHM Q4 SC ; Start 12/12/18 at 13:00 Vancomycin HCl 250 ml @ 125 mls/hr ONCE IVPB ; Start 12/12/18 at 18:00; Stop 12/12/18 at 18:01 LEWIS PERALES NP Dec 12, 2018 12:52
[2018-12-12] MEDS: FLUCONAZOLE 100 MG/50 ML (PMX) 50 ML IVPB SCH (13:46)
[2018-12-12] MEDS ORDERED: SOD CHLORIDE 0.9% IV SCH (14:30)
[2018-12-12] MEDS ORDERED: SODIUM PHOSPHATE IV SCH (14:30)
[2018-12-12] MEDS ORDERED: VANCOMYCIN 1 GM 250 ML IVPB SCH (18:00)
[2018-12-12] MEDS: TPN 1,000 ML IV SCH (18:06)
[2018-12-12] MEDS: ACETAMINOPHEN 650MG/20.3ML CUP GTB PRN (20:43)
[2018-12-12] MEDS: CEFEPIME 1GM/50 ML (PMX) 50 ML IVPB SCH (20:49)
[2018-12-12] MEDS: PHENYTOIN 300 MG in SOD CHLORIDE 0.9% 50 ML IV SCH (21:54)
[2018-12-13] VITALS (64 sets, daily range): BP systolic 89–159; BP diastolic 39–79; PULSE 68–80; RESP 12–30
[2018-12-13] MEDS ORDERED: ACETAMINOPHEN 650MG/20.3ML CUP NGT ONE (00:30)
[2018-12-13] MEDS ORDERED: FUROSEMIDE 20 MG INJ IV ONE (00:30)
[2018-12-13] MEDS: ACCU-CHEK XX SCH ×7 (01:35→20:47)
[2018-12-13] MEDS: INSULIN ASPART [NOVOLOG] 3 ML PEN SC SCH ×6 (01:39→20:51)
[2018-12-13] MEDS: ARTIFICIAL TEARS 15 ML OPH BOTH EYES SCH ×3 (06:14→18:26)
[2018-12-13] MEDS: OCULAR LUBRICANT 3.5 GM OPH OINT BOTH EYES SCH ×3 (06:14→18:29)
[2018-12-13] MEDS ORDERED: LORAZEPAM 2 MG INJ IV ONE (08:00)
[2018-12-13] MEDS: ALBUMIN HUMAN 25% 100 ML IV PRN (08:56)
--- NOTE | 2018-12-13 09:10 | CONS ---
Consult Date/Type/Reason Admit Date/Time Dec 06, 2018 at 12:45 Initial Consult Date 12/06/18 Type of Consult Pulmonary Requesting Provider: BOZENA PARK Date/Time of Note DATE: 12/13/18 TIME: 09:09 Subjective Remains somnolent on mechanical ventilation. Questionable ongoing seizure activity. Objective Vital Signs Date Temp Pulse Resp B/P (MAP) Pulse Ox O2 O2 Flow FiO2 Time Delivery Rate 12/13/18 30 08:46 12/13/18 74 21 138/63 100 07:00 (88) 12/13/18 99.7 05:00 12/12/18 Mechanical 17:00 Ventilator Intake and Output 12/12/18 12/12/18 12/13/18 1515:00 23:00 07:00 IntakeIntake Total 350 ml 450 ml 300 ml OutputOutput Total 10 ml 0 ml 0 ml BalanceBalance 340 ml 450 ml 300 ml Exam GENERAL: Obese young lady orally intubated on mechanical ventilation VITAL SIGNS: per chart NECK: Supple. No JVD or lymphadenopathy. CARDIAC EXAM: S1, S2. No added sounds or murmurs. CHEST: Diminished air entry bilaterally ABDOMEN: Soft, nontender. No guarding or rebound. EXTREMITIES: No cyanosis, clubbing or edema. NEUROLOGIC: Unable to assess Vent Setting Ventilator Support Mode: AC Fraction of Inspired Oxygen pe: 30 Positive End Expiratory Pressu: 5.0 Results/Medications Result Diagram: 12/13/18 0501 12/13/18 0501 Results 24 hrs Laboratory Tests Test 12/12/18 09:39 12/12/18 10:55 12/12/18 14:38 12/12/18 18:22 White Blood Count 9.1 Red Blood Count 2.27 L Hemoglobin 6.9 *L Hematocrit 22.7 L Mean Corpuscular 100.0 Volume Mean Corpuscular 30.4 Hemoglobin Mean Corpuscular 30.4 L Hemoglobin Concen t Red Cell 14.8 H Distribution Width Platelet Count 124 L Mean Platelet 10.8 H Volume Immature 2.200 H Granulocytes % Neutrophils % 78.4 H Segmented 77 Neutrophils % (Manual) Band Neutrophils 9 H % (Manual) Lymphocytes % 7.7 L Lymphocytes % 8 L (Manual) Monocytes % 11.4 H Monocytes % 6 (Manual) Eosinophils % 0.1 Basophils % 0.2 Nucleated Red 0.0 Blood Cells % Immature 0.200 H Granulocytes # Neutrophils # 7.1 Neutrophils # 7.1 (Manual) Band Neutrophils 0.8 H # Lymphocytes 0.7 L (Manual) Lymphocytes # 0.7 L Monocytes # 1.0 H Monocytes # 0.5 (Manual) Eosinophils # 0.0 Basophils # 0.0 Nucleated Red 0.0 Blood Cells # Pathologist YES Review (Hematolog y) Platelet Estimate DECREASED Polychromasia 3+ Poikilocytosis 1+ Anisocytosis 1+ Microcytosis 1+ Tear Drop Cells 1+ Bedside Glucose 344 H 285 H 140 Test 12/12/18 20:39 12/13/18 01:34 12/13/18 05:01 12/13/18 05:05 Bedside Glucose 167 296 H 282 H White Blood Count 13.7 #H Red Blood Count 3.20 #L Hemoglobin 9.5 #L Hematocrit 30.6 #L Mean Corpuscular 95.6 Volume Mean Corpuscular 29.7 Hemoglobin Mean Corpuscular 31.0 L Hemoglobin Concen t Red Cell 15.5 H Distribution Width Platelet Count 155 # Mean Platelet 11.0 H Volume Immature 0.800 H Granulocytes % Neutrophils % 84.1 H Lymphocytes % 4.6 L Monocytes % 10.1 Eosinophils % 0.2 Basophils % 0.2 Nucleated Red 0.0 Blood Cells % Immature 0.110 H Granulocytes # Neutrophils # 11.5 H Lymphocytes # 0.6 L Monocytes # 1.4 H Eosinophils # 0.0 Basophils # 0.0 Nucleated Red 0.0 Blood Cells # Sodium Level 136 Potassium Level 3.9 Chloride Level 98 Carbon Dioxide 27 Level Anion Gap 11 Blood Urea 48 #H Nitrogen Creatinine 4.95 #H Est Glomerular 9 L Filtrat Rate mL/min Glucose Level 316 H Calcium Level 9.5 Phosphorus Level 2.3 L Magnesium Level 2.2 Test 12/13/18 07:00 Blood Gas Blood arterial Specimen Source Arterial Blood 12/13/2018 9:00:1 Date Drawn 8 AM Arterial Blood pH 7.383 (Temp corrected) Arterial Blood 45.4 H pCO2 (Temp correct) Arterial Blood 105.9 H pO2 (Temp corrected) Arterial Blood 26.4 H HCO3 Arterial Blood 1.1 Base Excess Arterial Blood 97.5 Oxygen Saturation Stanislaw Test ACCEPTAB Arterial Blood Right Radial Gas Puncture Site Arterial 0.4 Blood Carboxyhemo globin Arterial Blood 0.3 Methemoglobin Blood Gas A-a O2 54.7 H Differential Oxyhemoglobin 96.8 Percent Blood Gas 37.0 Temperature Blood Gas 12.0 Respiration Rate Blood Gas Actual 20 Respiration Rate Blood Gas VENT - AC Modality FiO2 30.0 Blood Gas Tidal 400.0 Volume Blood Gas Low 5.0 PEEP Setting Blood Gas Estevan THOMAS Notified Whom Blood Gas 12/13/2018 9:08:5 Notified Time 9 AM Medications Current Medications Ondansetron HCl (Zofran Inj) 4 mg Q6H PRN IV NAUSEA AND/OR VOMITING; Start 12/06/18 at 09:30 Albuterol (Proventil 0.083% (Neb)) 2.5 mg Q2H RESP THERAPY PRN NEB SHORTNESS OF BREATH; Start 12/06/18 at 09:30 Docusate Sodium (Colace) 100 mg Q12H PRN PO CONSTIPATION; Start 12/06/18 at 09:30 Magnesium Hydroxide (Milk Of Mag) 30 ml DAILY PRN PO CONSTIPATION; Start 12/06/18 at 09:30 Aspirin (Aspirin) 81 mg DAILY PO Last administered on 12/12/18at 11:44; Admin Dose 81 MG; Start 12/06/18 at 10:30 Brimonidine Tartrate (Alphagan 0.2%) 1 drop DAILY BOTH EYES Last administered on 12/12/18 10:52; Admin Dose 1 DROP; Start 12/06/18 at 11:00 Calcium Acetate (Phoslo) 667 mg WITH MEALS PO Last administered on 12/12/18 18:18; Admin Dose 667 MG; Start 12/06/18 at 12:00 Docusate Sodium (Colace) 200 mg DAILY PO ; Start 12/06/18 at 10:30; Status Hold Lactulose (Enulose) 20 gm BID PO Last administered on 12/12/18at 20:49; Admin Dose 20 GM; Start 12/06/18 at 21:00 Montelukast Sodium (Singulair) 10 mg HS PO ; Start 12/06/18 at 21:00; Status Hold Multivit/Ca Carb/ B Cmplx/FA/Prenat (Mariaelena-Rosas) 1 tab DAILY PO Last administered on 12/12/18 11:44; Admin Dose 1 TAB; Start 12/06/18 at 10:30 Norepinephrine 250 ml @ 1.875 mls/ hr TITRATE IV Last administered on 12/07/18 13:25; Admin Dose 56.25 MLS/HR; Start 12/06/18 at 13:00 Atropine Sulfate (Atropine (Syringe)) 1 mg PRN PRN IV prn Last administered on 12/06/18 16:49; Admin Dose 1 MG; Start 12/06/18 at 16:00 Midazolam HCl 50 ml @ 1 mls/hr TITRATE IV Last administered on 12/09/18 05:09; Admin Dose 4 MLS/HR; Start 12/06/18 at 16:30 Vancomycin HCl (Vanco Iv Per Pharmacy) VANCOMYCIN PER PHARMACY PER PROTOCOL XX ; Start 12/06/18 at 17:30 Cefepime HCl 50 ml @ 100 mls/hr Q24H IVPB Last administered on 12/12/18 20:49; Admin Dose 100 MLS/HR; Start 12/06/18 at 21:00 Levetiracetam 100 ml @ 400 mls/hr Q12 IVPB Last administered on 12/12/18 20:49; Admin Dose 400 MLS/HR; Start 12/06/18 at 21:00 Dopamine HCl/ Dextrose 250 ml @ 7.613 mls/ hr TITRATE IV Last administered on 12/09/18 03:03; Admin Dose 11.419 MLS/HR; Start 12/06/18 at 17:30 Acetaminophen (Tylenol Supp) [address] TEMP > 37C; Start 12/06/18 at 18:30 Meperidine HCl (Demerol) 12.5 mg Q4H PRN IV POST OPERATIVE SHIVERING; Start 12/06/18 at 18:30 Meperidine HCl (Demerol) 25 mg Q4H PRN IV POST OPERATIVE SHIVERING; Start 12/06/18 at 18:30 Eye Lubricant (Akwa Oint) 1 applic Q6 BOTH EYES Last administered on 12/13/18 06:14; Admin Dose 1 APPLIC; Start 12/07/18 at 00:00 Eye Lubricant (Artificial Tears Oph) 2 drop Q6 BOTH EYES Last administered on 12/13/18 06:14; Admin Dose 2 DROP; Start 12/07/18 at 00:00 Magnesium Sulfate 50 ml @ 25 mls/hr PRN PRN IVPB IV PROTOCOL; Start 12/06/18 at 20:30 Potassium Chloride 50 ml @ 25 mls/hr PRN PRN IVPB IV PROTOCOL Last administered on 12/07/18at 08:33; Admin Dose 25 MLS/HR; Start 12/06/18 at 20:30 Heparin Sodium (Porcine) (Heparin (1000 Units/ml)) 4,000 unit AFTER DIALYSIS CATHETER ; Start 12/06/18 at 22:00 Albumin Human 100 ml @ 100 mls/hr WITH DIALYSIS PRN IV SBP <90 DURING DIALYSIS Last administered on 12/13/18at 08:56; Admin Dose 100 MLS/HR; Start 12/06/18 at 22:00 Sodium Chloride (NS) -To prime the dialy... DIRECTED FOR HD PRN IV HD; Start 12/06/18 at 22:00 Phenytoin 200 mg/ Sodium Chloride 54 ml @ 112 mls/hr AM IV Last administered on 12/12/18 11:31; Admin Dose 112 MLS/HR; Start 12/07/18 at 09:00 Phenytoin 200 mg/ Sodium Chloride 54 ml @ 112 mls/hr PC LUNCH IV Last administered on 12/12/18at 15:14; Admin Dose 112 MLS/HR; Start 12/07/18 at 12:30 Phenytoin 300 mg/ Sodium Chloride 56 ml @ 112 mls/hr 2100 IV Last administered on 12/12/18 21:54; Admin Dose 112 MLS/HR; Start 12/07/18 at 21:00 Fentanyl 100 ml @ 2.5 mls/hr TITRATE IV Last administered on 12/08/18 06:27; Admin Dose 2.5 MLS/HR; Start 12/08/18 at 06:30 Diagnostic Test (Pha) (Accu-Chek) 1 ea 02 XX Last administered on 12/13/18at 01:36; Admin Dose 1 EA; Start 12/09/18 at 02:00 Miscellaneous Information 1 ea NOTE XX ; Start 12/08/18 at 11:30 Glucose (Glutose) 15 gm Q15M PRN PO DECREASED GLUCOSE; Start 12/08/18 at 11:30 Glucose (Glutose) 22.5 gm Q15M PRN PO DECREASED GLUCOSE; Start 12/08/18 at 11:30 Dextrose (D50w Syringe) 25 ml Q15M PRN IV DECREASED GLUCOSE; Start 12/08/18 at 11:30 Dextrose (D50w Syringe) 50 ml Q15M PRN IV DECREASED GLUCOSE; Start 12/08/18 at 11:30 Glucagon (Glucagen) 1 mg Q15M PRN IM DECREASED GLUCOSE; Start 12/08/18 at 11:30 Glucose (Glutose) 15 gm Q15M PRN BUCCAL DECREASED GLUCOSE; Start 12/08/18 at 11:30 Collagenase (Santyl) 1 applic DAILY TOP Last administered on 12/12/18at 11:45; Admin Dose 1 APPLIC; Start 12/10/18 at 09:00 Diagnostic Test (Pha) (Accu-Chek) 1 ea Q4 XX Last administered on 12/13/18at 05:07; Admin Dose 1 EA; Start 12/11/18 at 13:00 Total Parenteral Nutrition 1,000 ml @ 50 mls/hr Q20H IV Last administered on 12/12/18at 18:06; Admin Dose 50 MLS/HR; Start 12/11/18 at 18:00 Acetaminophen (Tylenol Liquid) 650 mg Q6H PRN GTB MILD PAIN(1-3)OR ELEVATED TEMP Last administered on 12/12/18at 20:43; Admin Dose 650 MG; Start 12/11/18 at 20:30 Famotidine (Pepcid Iv) 20 mg Q48H IV ; Start 12/13/18 at 07:00 Fluconazole/ Sodium Chloride 50 ml @ 50 mls/hr Q24H IVPB Last administered on 12/12/18at 13:46; Admin Dose 50 MLS/HR; Start 12/12/18 at 14:00 Insulin Aspart (Novolog Insulin Pen) NOVOLOG *MODERATE* ALGORITHM Q4 SC Last administered on 12/13/18at 05:09; Admin Dose 8 UNIT; Start 12/12/18 at 13:00 Insulin Glargine (Lantus) 20 units DAILY@0800 SC ; Start 12/13/18 at 10:00 Assessment/Plan Hospital Course (Demo Recall) Assessment 1. Cardiopulmonary arrest 2. Recent seizure history of seizures 3. Significant anemia questionable GI bleed 4. Renal insufficiency possible ATN injury 5. Acute hypoxemic respiratory failure likely secondary to aspiration pneumonia versus ARDS Plan 1. Continue mechanical ventilation 2. Neurology recommendations and family conference regarding goals of care, meeting with palliative care this afternoon. 3. Continue tube feeding as tolerated Patient would need tracheostomy and PEG tube placement given her anatomy and body habitus. Very very unlikely she would be weaned from mechanical ventilation. Critical care time 40 minutes. SEDRICK MORALEZ MD, [facility] Dec 13, 2018 09:10
--- NOTE | 2018-12-13 09:13 | PN ---
Date/Time of Note Date/Time of Note DATE: 12/13/18 TIME: 09:10 Objective Vitals Vital Signs Date Temp Pulse Resp B/P (MAP) Pulse Ox O2 O2 Flow FiO2 Time Delivery Rate 12/13/18 30 08:46 12/13/18 74 21 138/63 100 07:00 (88) 12/13/18 99.7 05:00 12/12/18 Mechanical 17:00 Ventilator Intake and Output 12/12/18 12/12/18 12/13/18 1515:00 23:00 07:00 IntakeIntake Total 350 ml 450 ml 300 ml OutputOutput Total 10 ml 0 ml 0 ml BalanceBalance 340 ml 450 ml 300 ml Results Result Diagram: 12/13/18 0501 12/13/18 0501 Medications Medications Current Medications Ondansetron HCl (Zofran Inj) 4 mg Q6H PRN IV NAUSEA AND/OR VOMITING; Start 12/06/18 at 09:30 Albuterol (Proventil 0.083% (Neb)) 2.5 mg Q2H RESP THERAPY PRN NEB SHORTNESS OF BREATH; Start 12/06/18 at 09:30 Docusate Sodium (Colace) 100 mg Q12H PRN PO CONSTIPATION; Start 12/06/18 at 09:30 Magnesium Hydroxide (Milk Of Mag) 30 ml DAILY PRN PO CONSTIPATION; Start 12/06/18 at 09:30 Aspirin (Aspirin) 81 mg DAILY PO Last administered on 12/12/18at 11:44; Admin Dose 81 MG; Start 12/06/18 at 10:30 Brimonidine Tartrate (Alphagan 0.2%) 1 drop DAILY BOTH EYES Last administered on 12/12/18at 10:52; Admin Dose 1 DROP; Start 12/06/18 at 11:00 Calcium Acetate (Phoslo) 667 mg WITH MEALS PO Last administered on 12/12/18at 18:18; Admin Dose 667 MG; Start 12/06/18 at 12:00 Docusate Sodium (Colace) 200 mg DAILY PO ; Start 12/06/18 at 10:30; Status Hold Lactulose (Enulose) 20 gm BID PO Last administered on 12/12/18at 20:49; Admin Dose 20 GM; Start 12/06/18 at 21:00 Montelukast Sodium (Singulair) 10 mg HS PO ; Start 12/06/18 at 21:00; Status Ho ld Multivit/Ca Carb/ B Cmplx/FA/Prenat (Mariaelena-Rosas) 1 tab DAILY PO Last administered on 12/12/18 11:44; Admin Dose 1 TAB; Start 12/06/18 at 10:30 Norepinephrine 250 ml @ 1.875 mls/ hr TITRATE IV Last administered on 12/07/18 13:25; Admin Dose 56.25 MLS/HR; Start 12/06/18 at 13:00 Atropine Sulfate (Atropine (Syringe)) 1 mg PRN PRN IV prn Last administered on 12/06/18 16:49; Admin Dose 1 MG; Start 12/06/18 at 16:00 Midazolam HCl 50 ml @ 1 mls/hr TITRATE IV Last administered on 12/09/18 05:09; Admin Dose 4 MLS/HR; Start 12/06/18 at 16:30 Vancomycin HCl (Vanco Iv Per Pharmacy) VANCOMYCIN PER PHARMACY PER PROTOCOL XX ; Start 12/06/18 at 17:30 Cefepime HCl 50 ml @ 100 mls/hr Q24H IVPB Last administered on 12/12/18 20:49; Admin Dose 100 MLS/HR; Start 12/06/18 at 21:00 Levetiracetam 100 ml @ 400 mls/hr Q12 IVPB Last administered on 12/12/18 20:49; Admin Dose 400 MLS/HR; Start 12/06/18 at 21:00 Dopamine HCl/ Dextrose 250 ml @ 7.613 mls/ hr TITRATE IV Last administered on 12/09/18 03:03; Admin Dose 11.419 MLS/HR; Start 12/06/18 at 17:30 Acetaminophen (Tylenol Supp) 650 mg Q4H PRN [place] TEMP > 37C; Start 12/06/18 at 18:30 Meperidine HCl (Demerol) 12.5 mg Q4H PRN IV POST OPERATIVE SHIVERING; Start 12/06/18 at 18:30 Meperidine HCl (Demerol) 25 mg Q4H PRN IV POST OPERATIVE SHIVERING; Start 12/06/18 at 18:30 Eye Lubricant (Akwa Oint) 1 applic Q6 BOTH EYES Last administered on 12/13/18 06:14; Admin Dose 1 APPLIC; Start 12/07/18 at 00:00 Eye Lubricant (Artificial Tears Oph) 2 drop Q6 BOTH EYES Last administered on 12/13/18 06:14; Admin Dose 2 DROP; Start 12/07/18 at 00:00 Magnesium Sulfate 50 ml @ 25 mls/hr PRN PRN IVPB IV PROTOCOL; Start 12/06/18 at 20:30 Potassium Chloride 50 ml @ 25 mls/hr PRN PRN IVPB IV PROTOCOL Last administered on 12/07/18 08:33; Admin Dose 25 MLS/HR; Start 12/06/18 at 20:30 Heparin Sodium (Porcine) (Heparin (1000 Units/ml)) 4,000 unit AFTER DIALYSIS CATHETER ; Start 12/06/18 at 22:00 Albumin Human 100 ml @ 100 mls/hr WITH DIALYSIS PRN IV SBP <90 DURING DIALYSIS Last administered on 12/13/18 08:56; Admin Dose 100 MLS/HR; Start 12/06/18 at 22:00 Sodium Chloride (NS) -To prime the dialy... DIRECTED FOR HD PRN IV HD; Start 12/06/18 at 22:00 Phenytoin 200 mg/ Sodium Chloride 54 ml @ 112 mls/hr AM IV Last administered on 12/12/18 11:31; Admin Dose 112 MLS/HR; Start 12/07/18 at 09:00 Phenytoin 200 mg/ Sodium Chloride 54 ml @ 112 mls/hr PC LUNCH IV Last administered on 12/12/18 15:14; Admin Dose 112 MLS/HR; Start 12/07/18 at 12:30 Phenytoin 300 mg/ Sodium Chloride 56 ml @ 112 mls/hr 2100 IV Last administered on 12/12/18 21:54; Admin Dose 112 MLS/HR; Start 12/07/18 at 21:00 Fentanyl 100 ml @ 2.5 mls/hr TITRATE IV Last administered on 12/08/18 06:27; Admin Dose 2.5 MLS/HR; Start 12/08/18 at 06:30 Diagnostic Test (Pha) (Accu-Chek) 1 ea 02 XX Last administered on 12/13/18 01:36; Admin Dose 1 EA; Start 12/09/18 at 02:00 Miscellaneous Information 1 ea NOTE XX ; Start 12/08/18 at 11:30 Glucose (Glutose) 15 gm Q15M PRN PO DECREASED GLUCOSE; Start 12/08/18 at 11:30 Glucose (Glutose) 22.5 gm Q15M PRN PO DECREASED GLUCOSE; Start 12/08/18 at 11:30 Dextrose (D50w Syringe) 25 ml Q15M PRN IV DECREASED GLUCOSE; Start 12/08/18 at 11:30 Dextrose (D50w Syringe) 50 ml Q15M PRN IV DECREASED GLUCOSE; Start 12/08/18 at 11:30 Glucagon (Glucagen) 1 mg Q15M PRN IM DECREASED GLUCOSE; Start 12/08/18 at 11:30 Glucose (Glutose) 15 gm Q15M PRN BUCCAL DECREASED GLUCOSE; Start 12/08/18 at 11:30 Collagenase (Santyl) 1 applic DAILY TOP Last administered on 12/12/18at 11:45; Admin Dose 1 APPLIC; Start 12/10/18 at 09:00 Diagnostic Test (Pha) (Accu-Chek) 1 ea Q4 XX Last administered on 12/13/18at 05:07; Admin Dose 1 EA; Start 12/11/18 at 13:00 Total Parenteral Nutrition 1,000 ml @ 50 mls/hr Q20H IV Last administered on 12/12/18at 18:06; Admin Dose 50 MLS/HR; Start 12/11/18 at 18:00 Acetaminophen (Tylenol Liquid) 650 mg Q6H PRN GTB MILD PAIN(1-3)OR ELEVATED TEMP Last administered on 12/12/18at 20:43; Admin Dose 650 MG; Start 12/11/18 at 20:30 Famotidine (Pepcid Iv) 20 mg Q48H IV ; Start 12/13/18 at 07:00 Fluconazole/ Sodium Chloride 50 ml @ 50 mls/hr Q24H IVPB Last administered on 12/12/18at 13:46; Admin Dose 50 MLS/HR; Start 12/12/18 at 14:00 Insulin Aspart (Novolog Insulin Pen) NOVOLOG *MODERATE* ALGORITHM Q4 SC Last administered on 12/13/18at 05:09; Admin Dose 8 UNIT; Start 12/12/18 at 13:00 Insulin Glargine (Lantus) 20 units DAILY@0800 SC ; Start 12/13/18 at 10:00 VTE Prophylaxis Risk score (from Nsg)>0 risk: 11 SCD applied (from Ns): Yes Lines/Catheters IV Catheter Type: Simpson in Place: Yes Cont'd simpson catheter reason: terminal illness/intractable pain Assessment/Plan Hospital Course Subjective Patient still intubated, off sedation Objective Physical exam General: Patient is intubated Mentation: Patient is intubated but no purposeful movement Head: Normocephalic atraumatic Eyes: EOMI, left pupil is alfredo out chronically Neck: Supple, nontender, midline Respiratory: Coarse to auscultation bilaterally Cardiovascular: Tachycardic rate, no obvious murmurs Gastrointestinal: non-tender to palpation, bowel sounds heard. Neurological: No purposeful movement, occasional cough Skin: No new skin lesions Assessment/Plan S/p Cardiac arrest with ROSC - Patient is currently finished with hypothermia protocol and off sedation and will continue monitoring neurological status - Patient initially with NSVT and given prolonged QT and placement on Amiodarone went into torsades then coded. Patient coded another 3 times total secondary to PEA arrest with ROSC - Cardiology on board and appreciate recommendations. Continue on Dopamine. may need? Cardiac cath if patient recovers - trops remain negative indicating non ischemic etiology for arrest Staph bacteremia -IV antibiotic -Infectious disease consulted Anemia -Was partially due to traumatic Simpson manipulation earlier this week, now that has resolved -Patient is likely iron deficient and reticulocyte count shows evidence of hypo- proliferation -2 units given on December 12, 2018, monitor for bleed, no apparent source is so far -Transfuse as needed Thrombocytopenia -Mild to moderate, monitor closely no obvious signs of bleeding Chronic blindness -Chronic left-sided blindness secondary to diabetic retinopathy, patient also has moderate to severe right-sided blindness secondary to diabetic retinopathy ?Arrhythmia, NSVT - Patient has ? afib and may have had afib with aberrancy but initial event was not captured - EKG showing prolonged QT - noted on Coumadin on med rec but INR normal at time of presentation. Will need to touch base with fam vs patient when she recovers on why she takes Coumadin Hypotension -cardiogenic and septic -off pressors for now, however BP again mildly low this a.m., however on di alysis, if patient continues to be low, will attempt a small fluid challenge with albumin, if all conservative measures fail, will need to reinitiate pressors -pressors as needed Sepsis - likely aspiration and now bacteremic given multiple cardiac arrest episodes. - snider cultures drawn and continue on current broad antibiotics - femoral line in, ID to decide if we need to remove the left internal jugular catheter and femoral and insert a new femoral on the left side. Hypokalemia - replacing as needed DM -Insulin drip changed to sliding scale - A1c noted and uncontrolled - now on TPN, so sugars higher, lantus/ISS adjusted ESRD on HD - Nephrology,Dr. Reddy, on board and appreciate consultation. T/T/S scheduled h/o CVA - continue current medications HTN - currently requiring pressor support Disposition -Monitor off sedation as tolerated. Assess for neurological recovery - Palliative on board. Family would like patient to remain full code for now -start TPN >40 minutes of critical care time spent with patient and family at bedside BOZENA PARK Dec 13, 2018 09:13
[2018-12-13] MEDS: COLLAGENASE 5 GM (UD JAR) TOP SCH (09:16)
[2018-12-13] MEDS: MULTIVIT/CA CARB/B CMPLX/FA TAB PO SCH (09:16)
[2018-12-13] MEDS: ASPIRIN 81 MG TAB PO SCH (09:16)
--- NOTE | 2018-12-13 09:16 | CONS ---
Assessment/Plan Assessment/Plan Hospital Course 47 F c/ reported Hx of stroke and epilepsy, among other comorbidities, who is currently admitted to the [facility] ICU following cardiac arrest. Now s/p TTM. On neurologic examination, she has preserved brainstem activity and a withdrawal motor response.. Her prognosis for meaningful neurologic recovery is probably poor. CTH was without acute intracranial pathology, though it was notable for severe atrophy and chronic subdurals. Initial EEG was without epileptiform activity. P: Repeat EEG to evaluate frequent spells concerning for seizure Continue to limit sedating medications where possible OK to continue Dilantin and Keppra per ops for now; repeat Dilanitn level Ativan iv prn prolonged seizure or cluster Other medical management and supportive care per primary Will follow Consultation Date/Type/Reason Admit Date/Time Dec 06, 2018 at 12:45 Type of Consult Neurology Reason for Consultation coma Requesting Provider: BOZENA PARK Date/Time of Note DATE: 12/13/18 TIME: 09:16 24 HR Interval Summary Free Text/Dictation Continues critical care. Family meeting held yesterday. Subjective hx not possible: pt non-verbal, pt critical Exam Vital Signs Vitals Vital Signs Date Temp Pulse Resp B/P (MAP) Pulse Ox O2 O2 Flow FiO2 Time Delivery Rate 12/13/18 30 08:46 12/13/18 74 21 138/63 100 07:00 (88) 12/13/18 99.7 05:00 12/12/18 Mechanical 17:00 Ventilator Intake and Output 12/12/18 12/12/18 12/13/18 1515:00 23:00 07:00 IntakeIntake Total 350 ml 450 ml 300 ml OutputOutput Total 10 ml 0 ml 0 ml BalanceBalance 340 ml 450 ml 300 ml Exam PE: Gen Appearance: No Apparent Distress HEENT: Intubated Cardiovascular: Regular rate Abdomen: Soft Extremities: Dry; edematous NE: The patient was comatose. Cranial nerve examination was limited by mental status. R pupil was sluggishly reactive to light; L pupil was hazy. Funduscopic examination was limited. Face was grossly symmetric, w/ present corneal and cough reflexes. Tone was normal. Muscle bulk was normal. I did not see fasciculations. The patient had a spontaneous, rhythmic internal rotation of her arms and shoulders. She otherwise did not withdraw her extremities to noxious stimuli. Coordination and gait testing was limited by mental status. Arm and leg reflexes were symmetric. Sun's sign was absent. Plantar responses were extensor. APARNA AQUINO NP Dec 13, 2018 09:16 BEN DICKINSON Dec 13, 2018 12:19
[2018-12-13] MEDS: CALCIUM ACETATE 667 MG CAP PO SCH ×3 (09:17→18:26)
[2018-12-13] MEDS: BRIMONIDINE 0.2% 5 ML BTL BOTH EYES SCH ×2 (09:18→18:26)
[2018-12-13] MEDS: LEVETIRACETAM 500 MG (PMX) 100 ML IVPB SCH ×2 (09:22→20:44)
[2018-12-13] MEDS: FAMOTIDINE 20 MG INJ IV SCH (09:22)
[2018-12-13] MEDS: PHENYTOIN IV SCH ×2 (09:23→12:49)
[2018-12-13] MEDS: SOD CHLORIDE 0.9% IV SCH ×2 (09:23→12:49)
[2018-12-13] MEDS: LACTULOSE 30ML CUP PO SCH ×3 (09:30→21:00)
[2018-12-13] MEDS: INSULIN GLARGINE [LANTus] (100 UNITS/ML) SYG SC SCH (09:34)
--- NOTE | 2018-12-13 09:55 | CONS ---
Assessment/Plan Assessment/Plan Assessment/Plan (Daily) Long conversation with family members yesterday concerning changing patient's CODE STATUS, not changing to comfort measures. I am waiting for family members to arrive at 10:00 this morning yesterday the requested family conference first and before meeting with me today. Palliative care note to follow. Consultation Date/Type/Reason Admit Date/Time Dec 06, 2018 at 12:45 Initial Consult Date 12/06/18 Requesting Provider: BOZENA PARK Date/Time of Note DATE: 12/13/18 TIME: 09:54 Exam/Review of Systems Exam Vitals Vital Signs Date Temp Pulse Resp B/P (MAP) Pulse Ox O2 O2 Flow FiO2 Time Delivery Rate 12/13/18 30 08:46 12/13/18 74 21 138/63 100 07:00 (88) 12/13/18 99.7 05:00 12/12/18 Mechanical 17:00 Ventilator Intake and Output 12/12/18 12/12/18 12/13/18 1515:00 23:00 07:00 IntakeIntake Total 350 ml 450 ml 300 ml OutputOutput Total 10 ml 0 ml 0 ml BalanceBalance 340 ml 450 ml 300 ml Results Result Diagram: 12/13/18 0501 12/13/18 0501 Results 24hrs Laboratory Tests Test 12/12/18 10:55 12/12/18 14:38 12/12/18 18:22 12/12/18 20:39 Bedside Glucose 344 H 285 H 140 167 Test 12/13/18 01:34 12/13/18 05:01 12/13/18 05:05 12/13/18 07:00 Bedside Glucose 296 H 282 H White Blood Count 13.7 #H Red Blood Count 3.20 #L Hemoglobin 9.5 #L Hematocrit 30.6 #L Mean Corpuscular 95.6 Volume Mean Corpuscular 29.7 Hemoglobin Mean Corpuscular 31.0 L Hemoglobin Concen t Red Cell 15.5 H Distribution Width Platelet Count 155 # Mean Platelet 11.0 H Volume Immature 0.800 H Granulocytes % Neutrophils % 84.1 H Lymphocytes % 4.6 L Monocytes % 10.1 Eosinophils % 0.2 Basophils % 0.2 Nucleated Red 0.0 Blood Cells % Immature 0.110 H Granulocytes # Neutrophils # 11.5 H Lymphocytes # 0.6 L Monocytes # 1.4 H Eosinophils # 0.0 Basophils # 0.0 Nucleated Red 0.0 Blood Cells # Sodium Level 136 Potassium Level 3.9 Chloride Level 98 Carbon Dioxide 27 Level Anion Gap 11 Blood Urea 48 #H Nitrogen Creatinine 4.95 #H Est Glomerular 9 L Filtrat Rate mL/min Glucose Level 316 H Calcium Level 9.5 Phosphorus Level 2.3 L Magnesium Level 2.2 Blood Gas Blood arterial Specimen Source Arterial Blood 12/13/2018 9:00:1 Date Drawn 8 AM Arterial Blood pH 7.383 (Temp corrected) Arterial Blood 45.4 H pCO2 (Temp correct) Arterial Blood 105.9 H pO2 (Temp corrected) Arterial Blood 26.4 H HCO3 Arterial Blood 1.1 Base Excess Arterial Blood 97.5 Oxygen Saturation Stanislaw Test ACCEPTAB Arterial Blood Right Radial Gas Puncture Site Arterial 0.4 Blood Carboxyhemo globin Arterial Blood 0.3 Methemoglobin Blood Gas A-a O2 54.7 H Differential Oxyhemoglobin 96.8 Percent Blood Gas 37.0 Temperature Blood Gas 12.0 Respiration Rate Blood Gas Actual 20 Respiration Rate Blood Gas VENT - AC Modality FiO2 30.0 Blood Gas Tidal 400.0 Volume Blood Gas Low 5.0 PEEP Setting Blood Gas Estevan THOMAS Notified Whom Blood Gas 12/13/2018 9:08:5 Notified Time 9 AM Test 12/13/18 09:26 Bedside Glucose 203 Medications Medication Current Medications Ondansetron HCl (Zofran Inj) 4 mg Q6H PRN IV NAUSEA AND/OR VOMITING; Start 12/06/18 at 09:30 Albuterol (Proventil 0.083% (Neb)) 2.5 mg Q2H RESP THERAPY PRN NEB SHORTNESS OF BREATH; Start 12/06/18 at 09:30 Docusate Sodium (Colace) 100 mg Q12H PRN PO CONSTIPATION; Start 12/06/18 at 09:30 Magnesium Hydroxide (Milk Of Mag) 30 ml DAILY PRN PO CONSTIPATION; Start 12/06/18 at 09:30 Aspirin (Aspirin) 81 mg DAILY PO Last administered on 12/13/18at 09:16; Admin Dose 81 MG; Start 12/06/18 at 10:30 Brimonidine Tartrate (Alphagan 0.2%) 1 drop DAILY BOTH EYES Last administered on 12/13/18at 09:18; Admin Dose 1 DROP; Start 12/06/18 at 11:00 Calcium Acetate (Phoslo) 667 mg WITH MEALS PO Last administered on 12/13/18 09:17; Admin Dose 667 MG; Start 12/06/18 at 12:00 Docusate Sodium (Colace) 200 mg DAILY PO ; Start 12/06/18 at 10:30; Status Hold Lactulose (Enulose) 20 gm BID PO Last administered on 12/12/18 20:49; Admin Dose 20 GM; Start 12/06/18 at 21:00 Montelukast Sodium (Singulair) 10 mg HS PO ; Start 12/06/18 at 21:00; Status Hold Multivit/Ca Carb/ B Cmplx/FA/Prenat (Mariaelena-Rosas) 1 tab DAILY PO Last administered on 12/13/18 09:16; Admin Dose 1 TAB; Start 12/06/18 at 10:30 Norepinephrine 250 ml @ 1.875 mls/ hr TITRATE IV Last administered on 12/07/18 13:25; Admin Dose 56.25 MLS/HR; Start 12/06/18 at 13:00 Atropine Sulfate (Atropine (Syringe)) 1 mg PRN PRN IV prn Last administered on 12/06/18 16:49; Admin Dose 1 MG; Start 12/06/18 at 16:00 Midazolam HCl 50 ml @ 1 mls/hr TITRATE IV Last administered on 12/09/18 05:09; Admin Dose 4 MLS/HR; Start 12/06/18 at 16:30 Vancomycin HCl (Vanco Iv Per Pharmacy) VANCOMYCIN PER PHARMACY PER PROTOCOL XX ; Start 12/06/18 at 17:30 Cefepime HCl 50 ml @ 100 mls/hr Q24H IVPB Last administered on 12/12/18 20:49; Admin Dose 100 MLS/HR; Start 12/06/18 at 21:00 Levetiracetam 100 ml @ 400 mls/hr Q12 IVPB Last administered on 12/13/18 09:22; Admin Dose 400 MLS/HR; Start 12/06/18 at 21:00 Dopamine HCl/ Dextrose 250 ml @ 7.613 mls/ hr TITRATE IV Last administered on 12/09/18 03:03; Admin Dose 11.419 MLS/HR; Start 12/06/18 at 17:30 Acetaminophen (Tylenol Supp) 650 mg Q4H PRN [place] TEMP > 37C; Start 12/06/18 at 18:30 Meperidine HCl (Demerol) 12.5 mg Q4H PRN IV POST OPERATIVE SHIVERING; Start 12/06/18 at 18:30 Meperidine HCl (Demerol) 25 mg Q4H PRN IV POST OPERATIVE SHIVERING; Start 12/06/18 at 18:30 Eye Lubricant (Akwa Oint) 1 applic Q6 BOTH EYES Last administered on 12/13/18 06:14; Admin Dose 1 APPLIC; Start 12/07/18 at 00:00 Eye Lubricant (Artificial Tears Oph) 2 drop Q6 BOTH EYES Last administered on 12/13/18 06:14; Admin Dose 2 DROP; Start 12/07/18 at 00:00 Magnesium Sulfate 50 ml @ 25 mls/hr PRN PRN IVPB IV PROTOCOL; Start 12/06/18 at 20:30 Potassium Chloride 50 ml @ 25 mls/hr PRN PRN IVPB IV PROTOCOL Last administered on 12/07/18 08:33; Admin Dose 25 MLS/HR; Start 12/06/18 at 20:30 Heparin Sodium (Porcine) (Heparin (1000 Units/ml)) 4,000 unit AFTER DIALYSIS CATHETER ; Start 12/06/18 at 22:00 Albumin Human 100 ml @ 100 mls/hr WITH DIALYSIS PRN IV SBP <90 DURING DIALYSIS Last administered on 12/13/18 08:56; Admin Dose 100 MLS/HR; Start 12/06/18 at 22:00 Sodium Chloride (NS) -To prime the dialy... DIRECTED FOR HD PRN IV HD; Start 12/06/18 at 22:00 Phenytoin 200 mg/ Sodium Chloride 54 ml @ 112 mls/hr AM IV Last administered on 12/13/18 09:23; Admin Dose 112 MLS/HR; Start 12/07/18 at 09:00 Phenytoin 200 mg/ Sodium Chloride 54 ml @ 112 mls/hr PC LUNCH IV Last administered on 12/12/18 15:14; Admin Dose 112 MLS/HR; Start 12/07/18 at 12:30 Phenytoin 300 mg/ Sodium Chloride 56 ml @ 112 mls/hr 2100 IV Last administered on 4/12/19at 21:54; Admin Dose 112 MLS/HR; Start 12/07/18 at 21:00 Fentanyl 100 ml @ 2.5 mls/hr TITRATE IV Last administered on 12/08/18 06:27; Admin Dose 2.5 MLS/HR; Start 12/08/18 at 06:30 Diagnostic Test (Pha) (Accu-Chek) 1 ea 02 XX Last administered on 12/13/18at 01:36; Admin Dose 1 EA; Start 12/09/18 at 02:00 Miscellaneous Information 1 ea NOTE XX ; Start 12/08/18 at 11:30 Glucose (Glutose) 15 gm Q15M PRN PO DECREASED GLUCOSE; Start 12/08/18 at 11:30 Glucose (Glutose) 22.5 gm Q15M PRN PO DECREASED GLUCOSE; Start 12/08/18 at 11:30 Dextrose (D50w Syringe) 25 ml Q15M PRN IV DECREASED GLUCOSE; Start 12/08/18 at 11:30 Dextrose (D50w Syringe) 50 ml Q15M PRN IV DECREASED GLUCOSE; Start 12/08/18 at 11:30 Glucagon (Glucagen) 1 mg Q15M PRN IM DECREASED GLUCOSE; Start 12/08/18 at 11:30 Glucose (Glutose) 15 gm Q15M PRN BUCCAL DECREASED GLUCOSE; Start 12/08/18 at 11:30 Collagenase (Santyl) 1 applic DAILY TOP Last administered on 12/13/18at 09:16; Admin Dose 1 APPLIC; Start 12/10/18 at 09:00 Diagnostic Test (Pha) (Accu-Chek) 1 ea Q4 XX Last administered on 12/13/18 09:19; Admin Dose 1 EA; Start 12/11/18 at 13:00 Total Parenteral Nutrition 1,000 ml @ 50 mls/hr Q20H IV Last administered on 12/12/18 18:06; Admin Dose 50 MLS/HR; Start 12/11/18 at 18:00 Acetaminophen (Tylenol Liquid) 650 mg Q6H PRN GTB MILD PAIN(1-3)OR ELEVATED TEMP Last administered on 12/12/18 20:43; Admin Dose 650 MG; Start 12/11/18 at 20:30 Famotidine (Pepcid Iv) 20 mg Q48H IV Last administered on 12/13/18 09:22; Admin Dose 20 MG; Start 12/13/18 at 07:00 Fluconazole/ Sodium Chloride 50 ml @ 50 mls/hr Q24H IVPB Last administered on 12/12/18 13:46; Admin Dose 50 MLS/HR; Start 12/12/18 at 14:00 Insulin Aspart (Novolog Insulin Pen) NOVOLOG *MODERATE* ALGORITHM Q4 SC Last administered on 12/13/18 09:29; Admin Dose 4 UNIT; Start 12/12/18 at 13:00 Insulin Glargine (Lantus) 20 units DAILY@0800 SC Last administered on 12/13/18 09:34; Admin Dose 20 UNITS; Start 12/13/18 at 10:00 CASSANDRA POSADAS Dec 13, 2018 09:55
[2018-12-13] MEDS: TPN 1,000 ML IV SCH (10:00)
--- NOTE | 2018-12-13 10:24 | CONS ---
Assessment/Plan Assessment/Plan Hospital Course (Demo Recall) ID PROGRESS NOTE CURRENT ABX: DAY # => Vanco IV + Cefepime + Diflucan 12/13/18 0501 12/13/18 0501 24H INTERVAL SUMMARY * 47 yo M orally intubated, VSS, currently in HD session via RUEXT AVF access DIAGNOSTIC IMAGING * 12/13/18 CXR: 1. The endotracheal tube remains satisfactorily positioned. The enteric catheter side-hole lies within the distal esophagus. Ideally the catheter should be advanced by approximately 8 cm.2. The cardiovascular silhouette appears unremarkable. 3. Persistent interstitial prominence at the lung bases discoid atelectasis again seen at the left lung base and a persistent small right pleural fluid accumulation. No pneumothorax is evident. 4. Surgical clips again project to the right axilla. MICRO/OTHER * * 12/11/18 RESP CX: RESPIRATORY CULTURE Preliminary Organism 1 NORMAL RESPIRATORY ABHISHEK QUANTITY 1+ * 12/09/18 ETT Cx: RESPIRATORY CULTURE Final Organism 1 GROVER ALBICANS QUANTITY SCANT GROWTH * 12/11/18 BCx (-) * 12/07/18 BCx (-) * 12/06/18 BCX 2/2 bottles on admission BLOOD CULTURE Final Organism 1 STAPHYLOCOCCUS AUREUS S AUREUS M.I.C. RX --------- --- CEFAZOLIN S CIPROFLOXACIN >=8 R CLINDAMYCIN >=8 R DOXYCYCLINE S ERYTHROMYCIN >=8 R LEVOFLOXACIN >=8 R OXACILLIN 0.5 S PENICILLIN-G >=0.5 R RIFAMPIN <=0.5 S VANCOMYCIN <=0.5 S TRIMETHOPRIM/SULFAMETHOXAZOLE <=10 S PHYSICAL EXAMINATION: GENERAL: Super morbid obese F, orally intubated - VSS on the VENT HEENT: AT, NC, anicteric, ETT SECURE NECK: Supple, Left IJ TLC in place without erythema at site CHEST: Equal chest rise bilaterally, without dyspnea on observation HEART: Pulse RRR ABDOMEN: Soft / NT : FC in place w/scant dark urine EXTREMITIES: Warm, dry, dependent edema x4 SKIN: No rash, no diaphoresis ID ASSESSMENT 47 yo super morbid obese F admit with: 1. Severe sepsis status post shock 2. Oxacillin sensitive staph aureus bacteremia 3. Bilateral HCAP 4. Status post cardiac arrest with hypothermia protocol 5. Acute respiratory failure -- orally intubated 6. Acute CHF w/HFrEF of 35% - systolic HF 7. Suspect underlying RADHA vs obesity hypoventilation syndrome 8. Hx of CVA w/hemiplegia 9. Seizure disorder 10. End-stage renal disease, hemodialysis dependent 11. Diabetes 12. Bilateral buttock STG II decubs -> POA 13. Moist perineal skin folds at risk YEAST -- empiric Monostat VAG-3 suppository (-)MRSA Nares ABX ALLERGIES: KNDA INVASIVES: RUEXT AVF, Left IJ CORDIS, RIGHT FEM TLC, ETT, FC CURRENT ABX: DAY # => Vanco IV + Cefepime + Diflucan ID RECOMMENDATIONS/PLAN: 1. LINE SALVAGE PLAN is appropriate in this case as L IJ CORDIS which was placed on date of admission 12/06/18 in ED; however if she continues to spike fevers, then the FEMORAL TLC REMAINS SUSPECT as a source of fevers. * Repeat BCx are (-) -- source likely pulmonary vs endogenous spread from AVF biofilm * Would treat with Vanco IV 1 GM Q96H w/continued dose per pharmacy for total of 4 weeks in this case due to multiple risk factors. 2. She presented w/pyuria -- Urine Cx (-) on admission -- Will repeat UA C&S 3. Diflucan added to cover empiric yeast + Moist perineal skin folds at risk YEAST -- empiric Monostat VAG-3 suppository 4. Add empiric anaerobic coverage w/Flagyl IV 5. If fevers persist after addition of Flagyl + Diflucan and Monostat -- then we must consider removal of R-FEM TLC. . Consultation Date/Type/Reason Admit Date/Time Dec 06, 2018 at 12:45 Initial Consult Date 12/06/18 Requesting Provider: BOZENA PARK Date/Time of Note DATE: 12/13/18 TIME: 10:23 Exam/Review of Systems Exam Vitals Vital Signs Date Temp Pulse Resp B/P (MAP) Pulse Ox O2 O2 Flow FiO2 Time Delivery Rate 12/13/18 69 10:05 12/13/18 30 08:46 4/13/19 18 115/53 Mechanical 07:20 (73) Ventilator 12/13/18 100 07:00 12/13/18 99.7 05:00 Intake and Output 12/12/18 12/12/18 12/13/18 1515:00 23:00 07:00 IntakeIntake Total 350 ml 450 ml 300 ml OutputOutput Total 10 ml 0 ml 0 ml BalanceBalance 340 ml 450 ml 300 ml Results Result Diagram: 12/13/18 0501 12/13/18 0501 Results 24hrs Laboratory Tests Test 12/12/18 10:55 12/12/18 14:38 12/12/18 18:22 12/12/18 20:39 Bedside Glucose 344 H 285 H 140 167 Test 12/13/18 01:34 12/13/18 05:01 12/13/18 05:05 12/13/18 07:00 Bedside Glucose 296 H 282 H White Blood Count 13.7 #H Red Blood Count 3.20 #L Hemoglobin 9.5 #L Hematocrit 30.6 #L Mean Corpuscular 95.6 Volume Mean Corpuscular 29.7 Hemoglobin Mean Corpuscular 31.0 L Hemoglobin Concen t Red Cell 15.5 H Distribution Width Platelet Count 155 # Mean Platelet 11.0 H Volume Immature 0.800 H Granulocytes % Neutrophils % 84.1 H Lymphocytes % 4.6 L Monocytes % 10.1 Eosinophils % 0.2 Basophils % 0.2 Nucleated Red 0.0 Blood Cells % Immature 0.110 H Granulocytes # Neutrophils # 11.5 H Lymphocytes # 0.6 L Monocytes # 1.4 H Eosinophils # 0.0 Basophils # 0.0 Nucleated Red 0.0 Blood Cells # Sodium Level 136 Potassium Level 3.9 Chloride Level 98 Carbon Dioxide 27 Level Anion Gap 11 Blood Urea 48 #H Nitrogen Creatinine 4.95 #H Est Glomerular 9 L Filtrat Rate mL/min Glucose Level 316 H Calcium Level 9.5 Phosphorus Level 2.3 L Magnesium Level 2.2 Blood Gas Blood arterial Specimen Source Arterial Blood 12/13/2018 9:00:1 Date Drawn 8 AM Arterial Blood pH 7.383 (Temp corrected) Arterial Blood 45.4 H pCO2 (Temp correct) Arterial Blood 105.9 H pO2 (Temp corrected) Arterial Blood 26.4 H HCO3 Arterial Blood 1.1 Base Excess Arterial Blood 97.5 Oxygen Saturation Stanislaw Test ACCEPTAB Arterial Blood Right Radial Gas Puncture Site Arterial 0.4 Blood Carboxyhemo globin Arterial Blood 0.3 Methemoglobin Blood Gas A-a O2 54.7 H Differential Oxyhemoglobin 96.8 Percent Blood Gas 37.0 Temperature Blood Gas 12.0 Respiration Rate Blood Gas Actual 20 Respiration Rate Blood Gas VENT - AC Modality FiO2 30.0 Blood Gas Tidal 400.0 Volume Blood Gas Low 5.0 PEEP Setting Blood Gas Estevan THOMAS Notified Whom Blood Gas 12/13/2018 9:08:5 Notified Time 9 AM Test 12/13/18 09:26 Bedside Glucose 203 Medications Medication Current Medications Ondansetron HCl (Zofran Inj) 4 mg Q6H PRN IV NAUSEA AND/OR VOMITING; Start 12/06/18 at 09:30 Albuterol (Proventil 0.083% (Neb)) 2.5 mg Q2H RESP THERAPY PRN NEB SHORTNESS OF BREATH; Start 12/06/18 at 09:30 Docusate Sodium (Colace) 100 mg Q12H PRN PO CONSTIPATION; Start 12/06/18 at 09:30 Magnesium Hydroxide (Milk Of Mag) 30 ml DAILY PRN PO CONSTIPATION; Start at 09:30 Aspirin (Aspirin) 81 mg DAILY PO Last administered on 12/13/18at 09:16; Admin Dose 81 MG; Start 12/06/18 at 10:30 Brimonidine Tartrate (Alphagan 0.2%) 1 drop DAILY BOTH EYES Last administered on 12/13/18at 09:18; Admin Dose 1 DROP; Start 12/06/18 at 11:00 Calcium Acetate (Phoslo) 667 mg WITH MEALS PO Last administered on 12/13/18at 09:17; Admin Dose 667 MG; Start 12/06/18 at 12:00 Docusate Sodium (Colace) 200 mg DAILY PO ; Start 12/06/18 at 10:30; Status Hold Lactulose (Enulose) 20 gm BID PO Last administered on 12/12/18at 20:49; Admin Dose 20 GM; Start 12/06/18 at 21:00 Montelukast Sodium (Singulair) 10 mg HS PO ; Start 12/06/18 at 21:00; Status Hold Multivit/Ca Carb/ B Cmplx/FA/Prenat (Mariaelena-Rosas) 1 tab DAILY PO Last administered on 12/13/18 09:16; Admin Dose 1 TAB; Start 12/06/18 at 10:30 Norepinephrine 250 ml @ 1.875 mls/ hr TITRATE IV Last administered on 12/07/18 13:25; Admin Dose 56.25 MLS/HR; Start 12/06/18 at 13:00 Atropine Sulfate (Atropine (Syringe)) 1 mg PRN PRN IV prn Last administered on 12/06/18 16:49; Admin Dose 1 MG; Start 12/06/18 at 16:00 Midazolam HCl 50 ml @ 1 mls/hr TITRATE IV Last administered on 12/09/18 05:09; Admin Dose 4 MLS/HR; Start 12/06/18 at 16:30 Vancomycin HCl (Vanco Iv Per Pharmacy) VANCOMYCIN PER PHARMACY PER PROTOCOL XX ; Start 12/06/18 at 17:30 Cefepime HCl 50 ml @ 100 mls/hr Q24H IVPB Last administered on 12/12/18 20:49; Admin Dose 100 MLS/HR; Start 12/06/18 at 21:00 Levetiracetam 100 ml @ 400 mls/hr Q12 IVPB Last administered on 12/13/18 09:22; Admin Dose 400 MLS/HR; Start 12/06/18 at 21:00 Dopamine HCl/ Dextrose 250 ml @ 7.613 mls/ hr TITRATE IV Last administered on 12/09/18 03:03; Admin Dose 11.419 MLS/HR; Start 12/06/18 at 17:30 Acetaminophen (Tylenol Supp) 650 mg Q4H PRN [place] TEMP > 37C; Start 12/06/18 at 18:30 Meperidine HCl (Demerol) 12.5 mg Q4H PRN IV POST OPERATIVE SHIVERING; Start 12/06/18 at 18:30 Meperidine HCl (Demerol) 25 mg Q4H PRN IV POST OPERATIVE SHIVERING; Start 12/06/18 at 18:30 Eye Lubricant (Akwa Oint) 1 applic Q6 BOTH EYES Last administered on 12/13/18 06:14; Admin Dose 1 APPLIC; Start 12/07/18 at 00:00 Eye Lubricant (Artificial Tears Oph) 2 drop Q6 BOTH EYES Last administered on 12/13/18 06:14; Admin Dose 2 DROP; Start 12/07/18 at 00:00 Magnesium Sulfate 50 ml @ 25 mls/hr PRN PRN IVPB IV PROTOCOL; Start 12/06/18 at 20:30 Potassium Chloride 50 ml @ 25 mls/hr PRN PRN IVPB IV PROTOCOL Last administered on 12/07/18 08:33; Admin Dose 25 MLS/HR; Start 12/06/18 at 20:30 Heparin Sodium (Porcine) (Heparin (1000 Units/ml)) 4,000 unit AFTER DIALYSIS CATHETER ; Start 12/06/18 at 22:00 Albumin Human 100 ml @ 100 mls/hr WITH DIALYSIS PRN IV SBP <90 DURING DIALYSIS Last administered on 12/13/18 08:56; Admin Dose 100 MLS/HR; Start 12/06/18 at 22:00 Sodium Chloride (NS) -To prime the dialy... DIRECTED FOR HD PRN IV HD; Start 12/06/18 at 22:00 Phenytoin 200 mg/ Sodium Chloride 54 ml @ 112 mls/hr AM IV Last administered on 12/13/18 09:23; Admin Dose 112 MLS/HR; Start 12/07/18 at 09:00 Phenytoin 200 mg/ Sodium Chloride 54 ml @ 112 mls/hr PC LUNCH IV Last administered on 12/12/18 15:14; Admin Dose 112 MLS/HR; Start 12/07/18 at 12:30 Phenytoin 300 mg/ Sodium Chloride 56 ml @ 112 mls/hr 2100 IV Last administered on 12/12/18 21:54; Admin Dose 112 MLS/HR; Start 12/07/18 at 21:00 Fentanyl 100 ml @ 2.5 mls/hr TITRATE IV Last administered on 12/08/18 06:27; Admin Dose 2.5 MLS/HR; Start 12/08/18 at 06:30 Diagnostic Test (Pha) (Accu-Chek) 1 ea 02 XX Last administered on 12/13/18 01:36; Admin Dose 1 EA; Start 12/09/18 at 02:00 Miscellaneous Information 1 ea NOTE XX ; Start 12/08/18 at 11:30 Glucose (Glutose) 15 gm Q15M PRN PO DECREASED GLUCOSE; Start 12/08/18 at 11:30 Glucose (Glutose) 22.5 gm Q15M PRN PO DECREASED GLUCOSE; Start 12/08/18 at 11:30 Dextrose (D50w Syringe) 25 ml Q15M PRN IV DECREASED GLUCOSE; Start 12/08/18 at 11:30 Dextrose (D50w Syringe) 50 ml Q15M PRN IV DECREASED GLUCOSE; Start 12/08/18 at 11:30 Glucagon (Glucagen) 1 mg Q15M PRN IM DECREASED GLUCOSE; Start 12/08/18 at 11:30 Glucose (Glutose) 15 gm Q15M PRN BUCCAL DECREASED GLUCOSE; Start 12/08/18 at 11:30 Collagenase (Santyl) 1 applic DAILY TOP Last administered on 12/13/18 09:16; Admin Dose 1 APPLIC; Start 12/10/18 at 09:00 Diagnostic Test (Pha) (Accu-Chek) 1 ea Q4 XX Last administered on 12/13/18 09:19; Admin Dose 1 EA; Start 12/11/18 at 13:00 Total Parenteral Nutrition 1,000 ml @ 50 mls/hr Q20H IV Last administered on 12/12/18 18:06; Admin Dose 50 MLS/HR; Start 12/11/18 at 18:00 Acetaminophen (Tylenol Liquid) 650 mg Q6H PRN GTB MILD PAIN(1-3)OR ELEVATED TEMP Last administered on 12/12/18at 20:43; Admin Dose 650 MG; Start 12/11/18 at 20:30 Famotidine (Pepcid Iv) 20 mg Q48H IV Last administered on 12/13/18 09:22; Admin Dose 20 MG; Start 12/13/18 at 07:00 Fluconazole/ Sodium Chloride 50 ml @ 50 mls/hr Q24H IVPB Last administered on 12/12/18 13:46; Admin Dose 50 MLS/HR; Start 12/12/18 at 14:00 Insulin Aspart (Novolog Insulin Pen) NOVOLOG *MODERATE* ALGORITHM Q4 SC Last administered on 12/13/18 09:29; Admin Dose 4 UNIT; Start 12/12/18 at 13:00 Insulin Glargine (Lantus) 20 units DAILY@0800 SC Last administered on 12/13/18 09:34; Admin Dose 20 UNITS; Start 12/13/18 at 10:00 LEILA ALAS NP Dec 13, 2018 10:24
--- NOTE | 2018-12-13 11:15 | CONS ---
Assessment/Plan Assessment/Plan Assessment/Plan (Daily) 1. Cardiopulmonary Arrest--initially secondary to NSVT vs. Afib with aberrancy, thereafter course complicated by Torsades with notable QT prolongation. - Currently on Hypothermia protocol 2. ESRD on HD TTS tim[facility] at [facility] 3. acute hypoxemic respiratory failure due to cardiac arrest s/p Intubation on ventilator 4. Shock--likely cardiogenic; cannot exclude obstructive though clinical picture not consistent with massive PE. 5. Sepsis 2/2 staph bacteremia 6. HTN heart disease 7.. DM 8. severe Anemia with Hb down to 6.9- S/p 2 U PRBC on 12/12/18 Plan: s/p Hd today 2.7 L removed , pt will be on her original schedule TTS s/p hypothermia protocol , remains intubated s/p 2 U PRBC given yesterday, will continue her on Epogen ^6000 units SQ TIW for her anemia, rule out GI bleeding will follow up Consultation Date/Type/Reason Admit Date/Time Dec 06, 2018 at 12:45 Initial Consult Date 12/06/18 Type of Consult NEPHROLOGY Requesting Provider: BOZENA PARK Date/Time of Note DATE: 12/13/18 TIME: 11:15 24 HR Interval Summary Free Text/Dictation s/p Hd today 2.7 L removed, , pt remains intubated, Exam/Review of Systems Exam Vitals Vital Signs Date Temp Pulse Resp B/P (MAP) Pulse Ox O2 O2 Flow FiO2 Time Delivery Rate 12/13/18 72 11:05 12/13/18 30 08:46 12/13/18 18 115/53 Mechanical 07:20 (73) Ventilator 12/13/18 100 07:00 12/13/18 99.7 05:00 Intake and Output 12/12/18 12/12/18 12/13/18 1515:00 23:00 07:00 IntakeIntake Total 350 ml 450 ml 300 ml OutputOutput Total 10 ml 0 ml 0 ml BalanceBalance 340 ml 450 ml 300 ml Exam Constitutional: non-verbal Head: normocephalic, atraumatic Eyes: nl conjunctiva, nl lids ENMT: intubated Neck: supple, non-tender Respiratory: diminished breath sounds Cardiovascular: irregular rhythm Gastrointestinal: soft, nl liver, spleen, non-tender Extremities: 1+ pitting edema, no clubbing/no cyanosis Neurological: unresponsive Skin: nl turgor Results Result Diagram: 12/13/18 0501 12/13/18 0501 Results 24hrs Laboratory Tests Test 12/12/18 14:38 12/12/18 18:22 12/12/18 20:39 12/13/18 01:34 Bedside Glucose 285 H 140 167 296 H Test 12/13/18 05:01 12/13/18 05:05 12/13/18 07:00 12/13/18 09:26 White Blood Count 13.7 #H Red Blood Count 3.20 #L Hemoglobin 9.5 #L Hematocrit 30.6 #L Mean Corpuscular 95.6 Volume Mean Corpuscular 29.7 Hemoglobin Mean Corpuscular 31.0 L Hemoglobin Concen t Red Cell 15.5 H Distribution Width Platelet Count 155 # Mean Platelet 11.0 H Volume Immature 0.800 H Granulocytes % Neutrophils % 84.1 H Lymphocytes % 4.6 L Monocytes % 10.1 Eosinophils % 0.2 Basophils % 0.2 Nucleated Red 0.0 Blood Cells % Immature 0.110 H Granulocytes # Neutrophils # 11.5 H Lymphocytes # 0.6 L Monocytes # 1.4 H Eosinophils # 0.0 Basophils # 0.0 Nucleated Red 0.0 Blood Cells # Sodium Level 136 Potassium Level 3.9 Chloride Level 98 Carbon Dioxide 27 Level Anion Gap 11 Blood Urea 48 #H Nitrogen Creatinine 4.95 #H Est Glomerular 9 L Filtrat Rate mL/min Glucose Level 316 H Calcium Level 9.5 Phosphorus Level 2.3 L Magnesium Level 2.2 Bedside Glucose 282 H 203 Blood Gas Blood arterial Specimen Source Arterial Blood 12/13/2018 9:00:1 Date Drawn 8 AM Arterial Blood pH 7.383 (Temp corrected) Arterial Blood 45.4 H pCO2 (Temp correct) Arterial Blood 105.9 H pO2 (Temp corrected) Arterial Blood 26.4 H HCO3 Arterial Blood 1.1 Base Excess Arterial Blood 97.5 Oxygen Saturation Stanislaw Test ACCEPTAB Arterial Blood Right Radial Gas Puncture Site Arterial 0.4 Blood Carboxyhemo globin Arterial Blood 0.3 Methemoglobin Blood Gas A-a O2 54.7 H Differential Oxyhemoglobin 96.8 Percent Blood Gas 37.0 Temperature Blood Gas 12.0 Respiration Rate Blood Gas Actual 20 Respiration Rate Blood Gas VENT - AC Modality FiO2 30.0 Blood Gas Tidal 400.0 Volume Blood Gas Low 5.0 PEEP Setting Blood Gas Estevan THOMAS Notified Whom Blood Gas 12/13/2018 9:08:5 Notified Time 9 AM Medications Medication Current Medications Ondansetron HCl (Zofran Inj) 4 mg Q6H PRN IV NAUSEA AND/OR VOMITING; Start 12/06/18 at 09:30 Albuterol (Proventil 0.083% (Neb)) 2.5 mg Q2H RESP THERAPY PRN NEB SHORTNESS OF BREATH; Start 12/06/18 at 09:30 Docusate Sodium (Colace) 100 mg Q12H PRN PO CONSTIPATION; Start 12/06/18 at 09:30 Magnesium Hydroxide (Milk Of Mag) 30 ml DAILY PRN PO CONSTIPATION; Start 12/06/18 at 09:30 Aspirin (Aspirin) 81 mg DAILY PO Last administered on 12/13/18 09:16; Admin Dose 81 MG; Start 12/06/18 at 10:30 Brimonidine Tartrate (Alphagan 0.2%) 1 drop DAILY BOTH EYES Last administered on 12/13/18 09:18; Admin Dose 1 DROP; Start 12/06/18 at 11:00 Calcium Acetate (Phoslo) 667 mg WITH MEALS PO Last administered on 12/13/18 09:17; Admin Dose 667 MG; Start 12/06/18 at 12:00 Docusate Sodium (Colace) 200 mg DAILY PO ; Start 12/06/18 at 10:30; Status Hold Lactulose (Enulose) 20 gm BID PO Last administered on 12/13/18 09:30; Admin Dose 20 GM; Start 12/06/18 at 21:00 Montelukast Sodium (Singulair) 10 mg HS PO ; Start 12/06/18 at 21:00; Status H old Multivit/Ca Carb/ B Cmplx/FA/Prenat (Mariaelena-Rosas) 1 tab DAILY PO Last administered on 12/13/18 09:16; Admin Dose 1 TAB; Start 12/06/18 at 10:30 Norepinephrine 250 ml @ 1.875 mls/ hr TITRATE IV Last administered on 12/07/18 13:25; Admin Dose 56.25 MLS/HR; Start 12/06/18 at 13:00 Atropine Sulfate (Atropine (Syringe)) 1 mg PRN PRN IV prn Last administered on 12/06/18 16:49; Admin Dose 1 MG; Start 12/06/18 at 16:00 Midazolam HCl 50 ml @ 1 mls/hr TITRATE IV Last administered on 12/09/18 05:09; Admin Dose 4 MLS/HR; Start 12/06/18 at 16:30 Vancomycin HCl (Vanco Iv Per Pharmacy) VANCOMYCIN PER PHARMACY PER PROTOCOL XX ; Start 12/06/18 at 17:30 Cefepime HCl 50 ml @ 100 mls/hr Q24H IVPB Last administered on 12/12/18 20:49; Admin Dose 100 MLS/HR; Start 12/06/18 at 21:00 Levetiracetam 100 ml @ 400 mls/hr Q12 IVPB Last administered on 12/13/18 09:22; Admin Dose 400 MLS/HR; Start 12/06/18 at 21:00 Dopamine HCl/ Dextrose 250 ml @ 7.613 mls/ hr TITRATE IV Last administered on 12/09/18 03:03; Admin Dose 11.419 MLS/HR; Start 12/06/18 at 17:30 Acetaminophen (Tylenol Supp) 650 mg Q4H PRN [place] TEMP > 37C; Start 12/06/18 at 18:30 Meperidine HCl (Demerol) 12.5 mg Q4H PRN IV POST OPERATIVE SHIVERING; Start 12/06/18 at 18:30 Meperidine HCl (Demerol) 25 mg Q4H PRN IV POST OPERATIVE SHIVERING; Start 12/06/18 at 18:30 Eye Lubricant (Akwa Oint) 1 applic Q6 BOTH EYES Last administered on 12/13/18 06:14; Admin Dose 1 APPLIC; Start 12/07/18 at 00:00 Eye Lubricant (Artificial Tears Oph) 2 drop Q6 BOTH EYES Last administered on 12/13/18 06:14; Admin Dose 2 DROP; Start 12/07/18 at 00:00 Magnesium Sulfate 50 ml @ 25 mls/hr PRN PRN IVPB IV PROTOCOL; Start 12/06/18 at 20:30 Potassium Chloride 50 ml @ 25 mls/hr PRN PRN IVPB IV PROTOCOL Last administered on 12/07/18at 08:33; Admin Dose 25 MLS/HR; Start 12/06/18 at 20:30 Heparin Sodium (Porcine) (Heparin (1000 Units/ml)) 4,000 unit AFTER DIALYSIS CATHETER ; Start 12/06/18 at 22:00 Albumin Human 100 ml @ 100 mls/hr WITH DIALYSIS PRN IV SBP <90 DURING DIALYSIS Last administered on 12/13/18 08:56; Admin Dose 100 MLS/HR; Start 12/06/18 at 22:00 Sodium Chloride (NS) -To prime the dialy... DIRECTED FOR HD PRN IV HD; Start 12/06/18 at 22:00 Phenytoin 200 mg/ Sodium Chloride 54 ml @ 112 mls/hr AM IV Last administered on 12/13/18 09:23; Admin Dose 112 MLS/HR; Start 12/07/18 at 09:00 Phenytoin 200 mg/ Sodium Chloride 54 ml @ 112 mls/hr PC LUNCH IV Last administered on 12/12/18at 15:14; Admin Dose 112 MLS/HR; Start 12/07/18 at 12:30 Phenytoin 300 mg/ Sodium Chloride 56 ml @ 112 mls/hr 2100 IV Last administered on 12/12/18at 21:54; Admin Dose 112 MLS/HR; Start 12/07/18 at 21:00 Fentanyl 100 ml @ 2.5 mls/hr TITRATE IV Last administered on 12/08/18at 06:27; Admin Dose 2.5 MLS/HR; Start 12/08/18 at 06:30 Diagnostic Test (Pha) (Accu-Chek) 1 ea 02 XX Last administered on 12/13/18at 01:36; Admin Dose 1 EA; Start 12/09/18 at 02:00 Miscellaneous Information 1 ea NOTE XX ; Start 12/08/18 at 11:30 Glucose (Glutose) 15 gm Q15M PRN PO DECREASED GLUCOSE; Start 12/08/18 at 11:30 Glucose (Glutose) 22.5 gm Q15M PRN PO DECREASED GLUCOSE; Start 12/08/18 at 11:30 Dextrose (D50w Syringe) 25 ml Q15M PRN IV DECREASED GLUCOSE; Start 12/08/18 at 11:30 Dextrose (D50w Syringe) 50 ml Q15M PRN IV DECREASED GLUCOSE; Start 12/08/18 at 11:30 Glucagon (Glucagen) 1 mg Q15M PRN IM DECREASED GLUCOSE; Start 12/08/18 at 11:30 Glucose (Glutose) 15 gm Q15M PRN BUCCAL DECREASED GLUCOSE; Start 12/08/18 at 11:30 Collagenase (Santyl) 1 applic DAILY TOP Last administered on 12/13/18 09:16; Admin Dose 1 APPLIC; Start 12/10/18 at 09:00 Diagnostic Test (Pha) (Accu-Chek) 1 ea Q4 XX Last administered on 12/13/18 09:19; Admin Dose 1 EA; Start 12/11/18 at 13:00 Total Parenteral Nutrition 1,000 ml @ 50 mls/hr Q20H IV Last administered on 12/12/18 18:06; Admin Dose 50 MLS/HR; Start 12/11/18 at 18:00 Acetaminophen (Tylenol Liquid) 650 mg Q6H PRN GTB MILD PAIN(1-3)OR ELEVATED TEMP Last administered on 12/12/18 20:43; Admin Dose 650 MG; Start 12/11/18 at 20:30 Famotidine (Pepcid Iv) 20 mg Q48H IV Last administered on 12/13/18 09:22; Admin Dose 20 MG; Start 12/13/18 at 07:00 Fluconazole/ Sodium Chloride 50 ml @ 50 mls/hr Q24H IVPB Last administered on 12/12/18 13:46; Admin Dose 50 MLS/HR; Start 12/12/18 at 14:00 Insulin Aspart (Novolog Insulin Pen) NOVOLOG *MODERATE* ALGORITHM Q4 SC Last administered on 12/13/18 09:29; Admin Dose 4 UNIT; Start 12/12/18 at 13:00 Insulin Glargine (Lantus) 20 units DAILY@0800 SC Last administered on 12/13/18 09:34; Admin Dose 20 UNITS; Start 12/13/18 at 10:00 LAZ MELGAR MD Dec 13, 2018 11:15
--- NOTE | 2018-12-13 12:28 | CONS ---
Assessment/Plan Assessment/Plan Assessment/Plan (Daily) Family members were supposed to arrive at 10 AM this morning, they are still not here is currently 1230. Consultation Date/Type/Reason Admit Date/Time Dec 06, 2018 at 12:45 Initial Consult Date 12/06/18 Requesting Provider: BOZENA PARK Date/Time of Note DATE: 12/13/18 TIME: 12:27 Exam/Review of Systems Exam Vitals Vital Signs Date Temp Pulse Resp B/P (MAP) Pulse Ox O2 O2 Flow FiO2 Time Delivery Rate 12/13/18 71 11:15 12/13/18 20 123/68 100 Mechanical 11:00 (86) Ventilator 12/13/18 30 08:46 12/13/18 99.7 05:00 Intake and Output 12/12/18 12/12/18 12/13/18 1515:00 23:00 07:00 IntakeIntake Total 350 ml 450 ml 300 ml OutputOutput Total 10 ml 0 ml 0 ml BalanceBalance 340 ml 450 ml 300 ml Results Result Diagram: 12/13/18 0501 12/13/18 0501 Results 24hrs Laboratory Tests Test 12/12/18 14:38 12/12/18 18:22 12/12/18 20:39 12/13/18 01:34 Bedside Glucose 285 H 140 167 296 H Test 12/13/18 05:01 12/13/18 05:05 12/13/18 07:00 12/13/18 09:26 White Blood Count 13.7 #H Red Blood Count 3.20 #L Hemoglobin 9.5 #L Hematocrit 30.6 #L Mean Corpuscular 95.6 Volume Mean Corpuscular 29.7 Hemoglobin Mean Corpuscular 31.0 L Hemoglobin Concen t Red Cell 15.5 H Distribution Width Platelet Count 155 # Mean Platelet 11.0 H Volume Immature 0.800 H Granulocytes % Neutrophils % 84.1 H Lymphocytes % 4.6 L Monocytes % 10.1 Eosinophils % 0.2 Basophils % 0.2 Nucleated Red 0.0 Blood Cells % Immature 0.110 H Granulocytes # Neutrophils # 11.5 H Lymphocytes # 0.6 L Monocytes # 1.4 H Eosinophils # 0.0 Basophils # 0.0 Nucleated Red 0.0 Blood Cells # Sodium Level 136 Potassium Level 3.9 Chloride Level 98 Carbon Dioxide 27 Level Anion Gap 11 Blood Urea 48 #H Nitrogen Creatinine 4.95 #H Est Glomerular 9 L Filtrat Rate mL/min Glucose Level 316 H Calcium Level 9.5 Phosphorus Level 2.3 L Magnesium Level 2.2 Bedside Glucose 282 H 203 Blood Gas Blood arterial Specimen Source Arterial Blood 12/13/2018 9:00:1 Date Drawn 8 AM Arterial Blood pH 7.383 (Temp corrected) Arterial Blood 45.4 H pCO2 (Temp correct) Arterial Blood 105.9 H pO2 (Temp corrected) Arterial Blood 26.4 H HCO3 Arterial Blood 1.1 Base Excess Arterial Blood 97.5 Oxygen Saturation Stanislaw Test ACCEPTAB Arterial Blood Right Radial Gas Puncture Site Arterial 0.4 Blood Carboxyhemo globin Arterial Blood 0.3 Methemoglobin Blood Gas A-a O2 54.7 H Differential Oxyhemoglobin 96.8 Percent Blood Gas 37.0 Temperature Blood Gas 12.0 Respiration Rate Blood Gas Actual 20 Respiration Rate Blood Gas VENT - AC Modality FiO2 30.0 Blood Gas Tidal 400.0 Volume Blood Gas Low 5.0 PEEP Setting Blood Gas Estevan THOMAS Notified Whom Blood Gas 12/13/2018 9:08:5 Notified Time 9 AM Medications Medication Current Medications Ondansetron HCl (Zofran Inj) 4 mg Q6H PRN IV NAUSEA AND/OR VOMITING; Start 12/06/18 at 09:30 Albuterol (Proventil 0.083% (Neb)) 2.5 mg Q2H RESP THERAPY PRN NEB SHORTNESS OF BREATH; Start 12/06/18 at 09:30 Docusate Sodium (Colace) 100 mg Q12H PRN PO CONSTIPATION; Start 12/06/18 at 09:30 Magnesium Hydroxide (Milk Of Mag) 30 ml DAILY PRN PO CONSTIPATION; Start 12/06/18 at 09:30 Aspirin (Aspirin) 81 mg DAILY PO Last administered on 12/13/18at 09:16; Admin Dose 81 MG; Start 12/06/18 at 10:30 Brimonidine Tartrate (Alphagan 0.2%) 1 drop DAILY BOTH EYES Last administered on 12/13/18 09:18; Admin Dose 1 DROP; Start 12/06/18 at 11:00 Calcium Acetate (Phoslo) 667 mg WITH MEALS PO Last administered on 12/13/18 09:17; Admin Dose 667 MG; Start 12/06/18 at 12:00 Docusate Sodium (Colace) 200 mg DAILY PO ; Start 12/06/18 at 10:30; Status Hold Lactulose (Enulose) 20 gm BID PO Last administered on 12/13/18 09:30; Admin Dose 20 GM; Start 12/06/18 at 21:00 Montelukast Sodium (Singulair) 10 mg HS PO ; Start 12/06/18 at 21:00; Status Hold Multivit/Ca Carb/ B Cmplx/FA/Prenat (Mariaelena-Rosas) 1 tab DAILY PO Last administered on 12/13/18 09:16; Admin Dose 1 TAB; Start 12/06/18 at 10:30 Norepinephrine 250 ml @ 1.875 mls/ hr TITRATE IV Last administered on 12/07/18 13:25; Admin Dose 56.25 MLS/HR; Start 12/06/18 at 13:00 Atropine Sulfate (Atropine (Syringe)) 1 mg PRN PRN IV prn Last administered on 12/06/18 16:49; Admin Dose 1 MG; Start 12/06/18 at 16:00 Midazolam HCl 50 ml @ 1 mls/hr TITRATE IV Last administered on 12/09/18 05:09; Admin Dose 4 MLS/HR; Start 12/06/18 at 16:30 Vancomycin HCl (Vanco Iv Per Pharmacy) VANCOMYCIN PER PHARMACY PER PROTOCOL XX ; Start 12/06/18 at 17:30 Cefepime HCl 50 ml @ 100 mls/hr Q24H IVPB Last administered on 12/12/18 20:49; Admin Dose 100 MLS/HR; Start 12/06/18 at 21:00 Levetiracetam 100 ml @ 400 mls/hr Q12 IVPB Last administered on 12/13/18 09:22; Admin Dose 400 MLS/HR; Start 12/06/18 at 21:00 Dopamine HCl/ Dextrose 250 ml @ 7.613 mls/ hr TITRATE IV Last administered on 12/09/18 03:03; Admin Dose 11.419 MLS/HR; Start 12/06/18 at 17:30 Acetaminophen (Tylenol Supp) 650 mg Q4H PRN DE TEMP > 37C; Start 12/06/18 at 18:30 Meperidine HCl (Demerol) 12.5 mg Q4H PRN IV POST OPERATIVE SHIVERING; Start 12/06/18 at 18:30 Meperidine HCl (Demerol) 25 mg Q4H PRN IV POST OPERATIVE SHIVERING; Start 12/06/18 at 18:30 Eye Lubricant (Akwa Oint) 1 applic Q6 BOTH EYES Last administered on 12/13/18 06:14; Admin Dose 1 APPLIC; Start 12/07/18 at 00:00 Eye Lubricant (Artificial Tears Oph) 2 drop Q6 BOTH EYES Last administered on 12/13/18 06:14; Admin Dose 2 DROP; Start 12/07/18 at 00:00 Magnesium Sulfate 50 ml @ 25 mls/hr PRN PRN IVPB IV PROTOCOL; Start 12/06/18 at 20:30 Potassium Chloride 50 ml @ 25 mls/hr PRN PRN IVPB IV PROTOCOL Last administered on 12/07/18 08:33; Admin Dose 25 MLS/HR; Start 12/06/18 at 20:30 Heparin Sodium (Porcine) (Heparin (1000 Units/ml)) 4,000 unit AFTER DIALYSIS CATHETER ; Start 12/06/18 at 22:00 Albumin Human 100 ml @ 100 mls/hr WITH DIALYSIS PRN IV SBP <90 DURING DIALYSIS Last administered on 12/13/18 08:56; Admin Dose 100 MLS/HR; Start 12/06/18 at 22:00 Sodium Chloride (NS) -To prime the dialy... DIRECTED FOR HD PRN IV HD; Start 12/06/18 at 22:00 Phenytoin 200 mg/ Sodium Chloride 54 ml @ 112 mls/hr AM IV Last administered on 12/13/18 09:23; Admin Dose 112 MLS/HR; Start 12/07/18 at 09:00 Phenytoin 200 mg/ Sodium Chloride 54 ml @ 112 mls/hr PC LUNCH IV Last administered on 12/12/18 15:14; Admin Dose 112 MLS/HR; Start 12/07/18 at 12:30 Phenytoin 300 mg/ Sodium Chloride 56 ml @ 112 mls/hr 2100 IV Last administered on 12/12/18 21:54; Admin Dose 112 MLS/HR; Start 12/07/18 at 21:00 Fentanyl 100 ml @ 2.5 mls/hr TITRATE IV Last administered on 12/08/18 06:27; Admin Dose 2.5 MLS/HR; Start 12/08/18 at 06:30 Diagnostic Test (Pha) (Accu-Chek) 1 ea 02 XX Last administered on 12/13/18at 01:36; Admin Dose 1 EA; Start 12/09/18 at 02:00 Miscellaneous Information 1 ea NOTE XX ; Start 12/08/18 at 11:30 Glucose (Glutose) 15 gm Q15M PRN PO DECREASED GLUCOSE; Start 12/08/18 at 11:30 Glucose (Glutose) 22.5 gm Q15M PRN PO DECREASED GLUCOSE; Start 12/08/18 at 11:30 Dextrose (D50w Syringe) 25 ml Q15M PRN IV DECREASED GLUCOSE; Start 12/08/18 at 11:30 Dextrose (D50w Syringe) 50 ml Q15M PRN IV DECREASED GLUCOSE; Start 12/08/18 at 11:30 Glucagon (Glucagen) 1 mg Q15M PRN IM DECREASED GLUCOSE; Start 12/08/18 at 11:30 Glucose (Glutose) 15 gm Q15M PRN BUCCAL DECREASED GLUCOSE; Start 12/08/18 at 11:30 Collagenase (Santyl) 1 applic DAILY TOP Last administered on 12/13/18at 09:16; Admin Dose 1 APPLIC; Start 12/10/18 at 09:00 Diagnostic Test (Pha) (Accu-Chek) 1 ea Q4 XX Last administered on 12/13/18 09:19; Admin Dose 1 EA; Start 12/11/18 at 13:00 Total Parenteral Nutrition 1,000 ml @ 50 mls/hr Q20H IV Last administered on 12/12/18 18:06; Admin Dose 50 MLS/HR; Start 12/11/18 at 18:00 Acetaminophen (Tylenol Liquid) 650 mg Q6H PRN GTB MILD PAIN(1-3)OR ELEVATED TEMP Last administered on 12/12/18 20:43; Admin Dose 650 MG; Start 12/11/18 at 20:30 Famotidine (Pepcid Iv) 20 mg Q48H IV Last administered on 12/13/18 09:22; Admin Dose 20 MG; Start 12/13/18 at 07:00 Fluconazole/ Sodium Chloride 50 ml @ 50 mls/hr Q24H IVPB Last administered on 12/12/18 13:46; Admin Dose 50 MLS/HR; Start 12/12/18 at 14:00 Insulin Aspart (Novolog Insulin Pen) NOVOLOG *MODERATE* ALGORITHM Q4 SC Last administered on 12/13/18at 09:29; Admin Dose 4 UNIT; Start 12/12/18 at 13:00 Insulin Glargine (Lantus) 20 units DAILY@0800 SC Last administered on 12/13/18at 09:34; Admin Dose 20 UNITS; Start 12/13/18 at 10:00 Metronidazole 100 ml @ 100 mls/hr Q6 IVPB ; Start 12/13/18 at 12:00 Miconazole (Monistat-7) 2 supp HS VAG ; Start 12/13/18 at 21:00; Stop 12/15/18 at 21:01 CASSANDRA POSADAS Dec 13, 2018 12:28
[2018-12-13] MEDS: metroNIDAZOLE 500 MG/NS (PMX) 100 ML IVPB SCH ×2 (12:53→18:27)
[2018-12-13] MEDS: FLUCONAZOLE 100 MG/50 ML (PMX) 50 ML IVPB SCH (12:59)
[2018-12-13] MEDS ORDERED: LORAZEPAM 2 MG INJ IV PRN (13:30)
[2018-12-13] MEDS: PHENYTOIN 300 MG in SOD CHLORIDE 0.9% 50 ML IV SCH (20:37)
[2018-12-13] MEDS: CEFEPIME 1GM/50 ML (PMX) 50 ML IVPB SCH (20:37)
[2018-12-13] MEDS: MICONAZOLE 100 MG VAG SUPP VAG SCH (20:38)
[2018-12-13] MEDS ORDERED: MICONAZOLE 200 MG VAG SUPP VAG SCH (21:00)
[2018-12-14] VITALS (36 sets, daily range): BP systolic 112–168; BP diastolic 46–73; PULSE 70–83; RESP 14–26
[2018-12-14] MEDS: metroNIDAZOLE 500 MG/NS (PMX) 100 ML IVPB SCH ×4 (00:28→17:00)
[2018-12-14] MEDS: ARTIFICIAL TEARS 15 ML OPH BOTH EYES SCH ×4 (00:29→17:00)
[2018-12-14] MEDS: OCULAR LUBRICANT 3.5 GM OPH OINT BOTH EYES SCH ×4 (00:29→17:00)
[2018-12-14] MEDS: INSULIN ASPART [NOVOLOG] 3 ML PEN SC SCH ×6 (00:31→22:01)
[2018-12-14] MEDS: ACCU-CHEK XX SCH ×7 (00:34→21:00)
[2018-12-14] MEDS: CALCIUM ACETATE 667 MG CAP PO SCH ×3 (08:17→16:57)
[2018-12-14] MEDS: ASPIRIN 81 MG TAB PO SCH (08:17)
[2018-12-14] MEDS: MULTIVIT/CA CARB/B CMPLX/FA TAB PO SCH (08:17)
[2018-12-14] MEDS: LACTULOSE 30ML CUP PO SCH ×2 (08:17→21:00)
[2018-12-14] MEDS: ACETAMINOPHEN 650MG/20.3ML CUP GTB PRN (08:18)
[2018-12-14] MEDS: LEVETIRACETAM 500 MG (PMX) 100 ML IVPB SCH ×2 (08:18→21:35)
[2018-12-14] MEDS: INSULIN GLARGINE [LANTus] (100 UNITS/ML) SYG SC SCH (08:20)
[2018-12-14] MEDS: COLLAGENASE 5 GM (UD JAR) TOP SCH (08:21)
[2018-12-14] MEDS: SOD CHLORIDE 0.9% IV SCH ×2 (09:02→13:38)
[2018-12-14] MEDS: PHENYTOIN IV SCH ×2 (09:02→13:38)
--- NOTE | 2018-12-14 09:46 | OPR ---
DATE OF OPERATION: PREOPERATIVE DIAGNOSIS: Sepsis. POSTOPERATIVE DIAGNOSIS: Sepsis. OPERATION PERFORMED: Left femoral vein central line placement. SURGEON: James Gamboa MD ANESTHESIA: Local. CONSENT: Risks, benefits, complications, alternative therapies explained to the patient's family, co nsent obtained. OPERATIVE TECHNIQUE: The patient was placed in supine position, prepped and draped in usual sterile fashion. Time-out was called. Access was gained in the left common femoral vein. Guidewire was adv anced through without any difficulty. Subcutaneous tissues were dilated. A 20 cm dialysis catheter advanced over a guidewire, secured to skin using silk sutures. All 3 ports of the catheter were aspi rated and injected using saline solution. Appropriate dressings applied. Patient tolerated the proc edure well. Dictated By: JAMES GAMBOA MD FM/NTS Conf#: [id number] DID#: [id number] CC: JJ BRANCH MD; BEAN BEST MD;*EndCC*
--- NOTE | 2018-12-14 10:13 | CONS ---
Consult Date/Type/Reason Admit Date/Time Dec 06, 2018 at 12:45 Initial Consult Date 12/06/18 Type of Consult Pulmonary Requesting Provider: BOZENA PARK Date/Time of Note DATE: 12/14/18 TIME: 10:12 Subjective Patient remains unresponsive on mechanical ventilation. Objective Vital Signs Date Temp Pulse Resp B/P (MAP) Pulse Ox O2 O2 Flow FiO2 Time Delivery Rate 12/14/18 100.2 09:02 12/14/18 82 08:00 12/14/18 20 165/58 100 Mechanica 06:00 (93) l Ventilato r 12/14/18 30 05:20 Intake and Output 12/13/18 12/13/18 12/14/18 1515:00 23:00 07:00 IntakeIntake Total 878 ml 501 ml 305 ml OutputOutput Total 6800 ml 10 ml 0 ml BalanceBalance -5922 ml 491 ml 305 ml Exam GENERAL: Obese young lady orally intubated on mechanical ventilation VITAL SIGNS: per chart NECK: Supple. No JVD or lymphadenopathy. CARDIAC EXAM: S1, S2. No added sounds or murmurs. CHEST: Diminished air entry bilaterally ABDOMEN: Soft, nontender. No guarding or rebound. EXTREMITIES: No cyanosis, clubbing or edema. NEUROLOGIC: Unable to assess Vent Setting Ventilator Support Mode: AC, VC plus Fraction of Inspired Oxygen pe: 30 Positive End Expiratory Pressu: 5.0 Results/Medications Result Diagram: 12/14/1851812/14/18518 Results 24 hrs Laboratory Tests Test 12/13/18 13:02 12/13/18 13:36 12/13/18 18:00 12/13/18 18:34 Bedside Glucose 210 181 Phenytoin (Dilantin) 7.3 L Level Urine Color RED Urine Clarity CLOUDY A Urine pH 8.0 Urine Specific 1.023 [place] Urine Ketones TRACE A Urine Nitrite NEGATIVE Urine Bilirubin NEGATIVE Urine Urobilinogen NEGATIVE Urine Leukocyte NEGATIVE Esterase Urine Microscopic > 182 H RBC Urine Microscopic 155 H WBC Urine Squamous MODERATE Epithelial Cells Urine Hemoglobin 3+ H Urine Glucose 2+ H Urine Total Protein 3+ H Test 12/13/18 20:46 12/14/18 00:27 12/14/18 05:19 12/14/18 05:29 Bedside Glucose 185 221 H 234 H White Blood Count 11.7 H Red Blood Count 3.32 L Hemoglobin 9.8 L Hematocrit 31.8 L Mean Corpuscular 95.8 Volume Mean Corpuscular 29.5 Hemoglobin Mean Corpuscular 30.8 L Hemoglobin Concent Red Cell 15.5 H Distribution Width Platelet Count 162 Mean Platelet Volume 10.7 H Immature 0.900 H Granulocytes % Neutrophils % 82.9 H Lymphocytes % 7.3 L Monocytes % 7.7 Eosinophils % 0.9 Basophils % 0.3 Nucleated Red Blood 0.0 Cells % Immature 0.110 H Granulocytes # Neutrophils # 9.7 H Lymphocytes # 0.9 Monocytes # 0.9 Eosinophils # 0.1 Basophils # 0.0 Nucleated Red Blood 0.0 Cells # Sodium Level 140 Potassium Level 4.7 Chloride Level 100 Carbon Dioxide Level 28 Anion Gap 12 Blood Urea Nitrogen 37 #H Creatinine 3.76 #H Est Glomerular 13 L Filtrat Rate mL/min Glucose Level 225 H Calcium Level 9.6 Phosphorus Level 1.8 L Magnesium Level 2.2 Test 12/14/18 08:16 Bedside Glucose 199 Medications Current Medications Ondansetron HCl (Zofran Inj) 4 mg Q6H PRN IV NAUSEA AND/OR VOMITING; Start 12/06/18 at 09:30 Albuterol (Proventil 0.083% (Neb)) 2.5 mg Q2H RESP THERAPY PRN NEB SHORTNESS OF BREATH; Start 12/06/18 at 09:30 Docusate Sodium (Colace) 100 mg Q12H PRN PO CONSTIPATION; Start 12/06/18 at 09:30 Magnesium Hydroxide (Milk Of Mag) 30 ml DAILY PRN PO CONSTIPATION; Start 12/06/18 at 09:30 Aspirin (Aspirin) 81 mg DAILY PO Last administered on 12/14/18at 08:17; Admin Dose 81 MG; Start 12/06/18 at 10:30 Brimonidine Tartrate (Alphagan 0.2%) 1 drop DAILY BOTH EYES Last administered on 12/13/18 18:26; Admin Dose 1 DROP; Start 12/06/18 at 11:00 Calcium Acetate (Phoslo) 667 mg WITH MEALS PO Last administered on 12/14/18 08:17; Admin Dose 667 MG; Start 12/06/18 at 12:00 Docusate Sodium (Colace) 200 mg DAILY PO ; Start 12/06/18 at 10:30; Status Hold Lactulose (Enulose) 20 gm BID PO Last administered on 12/14/18 08:17; Admin Dose 20 GM; Start 12/06/18 at 21:00 Montelukast Sodium (Singulair) 10 mg HS PO ; Start 12/06/18 at 21:00; Status Hold Multivit/Ca Carb/ B Cmplx/FA/Prenat (Mariaelena-Rosas) 1 tab DAILY PO Last administered on 12/14/18 08:17; Admin Dose 1 TAB; Start 12/06/18 at 10:30 Norepinephrine 250 ml @ 1.875 mls/ hr TITRATE IV Last administered on 12/07/18 13:25; Admin Dose 56.25 MLS/HR; Start 12/06/18 at 13:00 Atropine Sulfate (Atropine (Syringe)) 1 mg PRN PRN IV prn Last administered on 12/06/18 16:49; Admin Dose 1 MG; Start 12/06/18 at 16:00 Midazolam HCl 50 ml @ 1 mls/hr TITRATE IV Last administered on 12/09/18 05:09; Admin Dose 4 MLS/HR; Start 12/06/18 at 16:30 Vancomycin HCl (Vanco Iv Per Pharmacy) VANCOMYCIN PER PHARMACY PER PROTOCOL XX ; Start 12/06/18 at 17:30 Cefepime HCl 50 ml @ 100 mls/hr Q24H IVPB Last administered on 12/13/18 20:37; Admin Dose 100 MLS/HR; Start 12/06/18 at 21:00 Levetiracetam 100 ml @ 400 mls/hr Q12 IVPB Last administered on 12/14/18 08:18; Admin Dose 400 MLS/HR; Start 12/06/18 at 21:00 Dopamine HCl/ Dextrose 250 ml @ 7.613 mls/ hr TITRATE IV Last administered on 12/09/18 03:03; Admin Dose 11.419 MLS/HR; Start 12/06/18 at 17:30 Acetaminophen (Tylenol Supp) 650 mg Q4H PRN MS TEMP > 37C; Start 12/06/18 at 18:30 Meperidine HCl (Demerol) 12.5 mg Q4H PRN IV POST OPERATIVE SHIVERING; Start 12/06/18 at 18:30 Meperidine HCl (Demerol) 25 mg Q4H PRN IV POST OPERATIVE SHIVERING; Start 12/06/18 at 18:30 Eye Lubricant (Akwa Oint) 1 applic Q6 BOTH EYES Last administered on 12/14/18 05:20; Admin Dose 1 APPLIC; Start 12/07/18 at 00:00 Eye Lubricant (Artificial Tears Oph) 2 drop Q6 BOTH EYES Last administered on 12/14/18 05:20; Admin Dose 2 DROP; Start 12/07/18 at 00:00 Magnesium Sulfate 50 ml @ 25 mls/hr PRN PRN IVPB IV PROTOCOL; Start 12/06/18 at 20:30 Potassium Chloride 50 ml @ 25 mls/hr PRN PRN IVPB IV PROTOCOL Last administered on 12/07/18 08:33; Admin Dose 25 MLS/HR; Start 12/06/18 at 20:30 Heparin Sodium (Porcine) (Heparin (1000 Units/ml)) 4,000 unit AFTER DIALYSIS CATHETER ; Start 12/06/18 at 22:00 Albumin Human 100 ml @ 100 mls/hr WITH DIALYSIS PRN IV SBP <90 DURING DIALYSIS Last administered on 12/13/18 08:56; Admin Dose 100 MLS/HR; Start 12/06/18 at 22:00 Sodium Chloride (NS) -To prime the dialy... DIRECTED FOR HD PRN IV HD; Start 12/06/18 at 22:00 Phenytoin 200 mg/ Sodium Chloride 54 ml @ 112 mls/hr AM IV Last administered on 12/14/18 09:02; Admin Dose 112 MLS/HR; Start 12/07/18 at 09:00 Phenytoin 200 mg/ Sodium Chloride 54 ml @ 112 mls/hr PC LUNCH IV Last adm inistered on 12/13/18 12:49; Admin Dose 112 MLS/HR; Start 12/07/18 at 12:30 Phenytoin 300 mg/ Sodium Chloride 56 ml @ 112 mls/hr 2100 IV Last administered on 12/13/18 20:37; Admin Dose 112 MLS/HR; Start 12/07/18 at 21:00 Fentanyl 100 ml @ 2.5 mls/hr TITRATE IV Last administered on 12/08/18 06:27; Admin Dose 2.5 MLS/HR; Start 12/08/18 at 06:30 Diagnostic Test (Pha) (Accu-Chek) 1 ea 02 XX Last administered on 12/13/18at 01:36; Admin Dose 1 EA; Start 12/09/18 at 02:00 Miscellaneous Information 1 ea NOTE XX ; Start 12/08/18 at 11:30 Glucose (Glutose) 15 gm Q15M PRN PO DECREASED GLUCOSE; Start 12/08/18 at 11:30 Glucose (Glutose) 22.5 gm Q15M PRN PO DECREASED GLUCOSE; Start 12/08/18 at 11:30 Dextrose (D50w Syringe) 25 ml Q15M PRN IV DECREASED GLUCOSE; Start 12/08/18 at 11:30 Dextrose (D50w Syringe) 50 ml Q15M PRN IV DECREASED GLUCOSE; Start 12/08/18 at 11:30 Glucagon (Glucagen) 1 mg Q15M PRN IM DECREASED GLUCOSE; Start 12/08/18 at 11:30 Glucose (Glutose) 15 gm Q15M PRN BUCCAL DECREASED GLUCOSE; Start 12/08/18 at 11:30 Collagenase (Santyl) 1 applic DAILY TOP Last administered on 12/14/18at 08:21; Admin Dose 1 APPLIC; Start 12/10/18 at 09:00 Diagnostic Test (Pha) (Accu-Chek) 1 ea Q4 XX Last administered on 12/14/18 08:21; Admin Dose 1 EA; Start 12/11/18 at 13:00 Total Parenteral Nutrition 1,000 ml @ 50 mls/hr Q20H IV Last administered on 12/12/18at 18:06; Admin Dose 50 MLS/HR; Start 12/11/18 at 18:00; Status Hold Acetaminophen (Tylenol Liquid) 650 mg Q6H PRN GTB MILD PAIN(1-3)OR ELEVATED TEMP Last administered on 12/14/18 08:18; Admin Dose 650 MG; Start 12/11/18 at 20:30 Famotidine (Pepcid Iv) 20 mg Q48H IV Last administered on 12/13/18 09:22; Admin Dose 20 MG; Start 12/13/18 at 07:00 Fluconazole/ Sodium Chloride 50 ml @ 50 mls/hr Q24H IVPB Last administered on 12/13/18at 12:59; Admin Dose 50 MLS/HR; Start 12/12/18 at 14:00 Insulin Aspart (Novolog Insulin Pen) NOVOLOG *MODERATE* ALGORITHM Q4 SC Last administered on 12/14/18at 08:21; Admin Dose 4 UNIT; Start 12/12/18 at 13:00 Metronidazole 100 ml @ 100 mls/hr Q6 IVPB Last administered on 12/14/18at 05:19; Admin Dose 100 MLS/HR; Start 12/13/18 at 12:00 Miconazole (Monistat-7) 2 supp HS VAG Last administered on 12/13/18at 20:38; Admin Dose 2 SUPP; Start 12/13/18 at 21:00; Stop 12/15/18 at 21:01 Lorazepam (Ativan) 1 mg Q10MIN PRN IV SEIZURES; Start 12/13/18 at 13:30 Insulin Glargine (Lantus) 25 units DAILY@0800 SC ; Start 12/15/18 at 08:00 Assessment/Plan Hospital Course (Demo Recall) Assessment 1. Cardiopulmonary arrest 2. Recent seizure history of seizures 3. Significant anemia questionable GI bleed 4. Renal insufficiency possible ATN injury 5. Acute hypoxemic respiratory failure likely secondary to aspiration pneumonia versus ARDS Plan 1. Continue mechanical ventilation 2. Severe anoxic brain injury. Patient will not be weaned from mechanical ventilation. 3. Continue tube feeding as tolerated Will have a family meeting to discuss goals of care. Patient should proceed to tracheostomy and PEG tube if family wish to continue all aggressive measures. Overall prognosis very poor. Critical care time 40 minutes. SEDRICK MORALEZ MD, [facility] Dec 14, 2018 10:13
--- NOTE | 2018-12-14 11:07 | CONS ---
Assessment/Plan Assessment/Plan Hospital Course 47 F c/ reported Hx of stroke and epilepsy, among other comorbidities, who is currently admitted to the [facility] ICU following cardiac arrest. Now s/p TTM. On neurologic examination, she has preserved brainstem activity and a withdrawal motor response.. Her prognosis for meaningful neurologic recovery is probably poor. CTH was without acute intracranial pathology, though it was notable for severe atrophy and chronic subdurals. Initial EEG was without epileptiform activity; repeat EEG is the same. Dilantin 7.3 P: Dilantin 500mg IV x1 now given subtherapeutic level, then continue maintenance as ordered OK to continue Keppra per ops for now; dilantin level in am Ativan iv prn prolonged seizure or cluster Continue to limit sedating medications where possible Other medical management and supportive care per primary Will follow clinically Consultation Date/Type/Reason Admit Date/Time Dec 06, 2018 at 12:45 Type of Consult Neurology Reason for Consultation coma Requesting Provider: BOZENA PARK Date/Time of Note DATE: 12/14/18 TIME: 11:04 24 HR Interval Summary Free Text/Dictation Continues critical care. Exam Vital Signs Vitals Vital Signs Date Temp Pulse Resp B/P (MAP) Pulse Ox O2 O2 Flow FiO2 Time Delivery Rate 12/14/18 75 16 121/46 99 Mechanica 10:00 (71) l Ventilato r 12/14/18 100.2 09:02 12/14/18 30 08:00 Intake and Output 12/13/18 12/13/18 12/14/18 1414:59 22:59 06:59 IntakeIntake Total 868 ml 546 ml 320 ml OutputOutput Total 6800 ml 10 ml 0 ml BalanceBalance -5932 ml 536 ml 320 ml Exam PE: Gen Appearance: No Apparent Distress HEENT: Intubated Cardiovascular: Regular rate Abdomen: Soft Extremities: Dry; edematous NE: The patient was comatose. Cranial nerve examination was limited by mental status. R pupil was sluggishly reactive to light; L pupil was hazy. Funduscopic examination was limited. Face was grossly symmetric, w/ present corneal and cough reflexes. Tone was normal. Muscle bulk was normal. I did not see fasciculations. The patient withdrew her lower extremities to noxious stimuli. Coordination and gait testing was limited by mental status. Arm and leg reflexes were symmetric. Sun's sign was absent. Plantar responses were extensor. APARNA AQUINO NP Dec 14, 2018 11:07 BEN DICKINSON Dec 15, 2018 06:50
[2018-12-14] MEDS ORDERED: PHENYTOIN 500 MG in SOD CHLORIDE 0.9% 100 ML IV ONE (11:30)
--- NOTE | 2018-12-14 11:47 | CONS ---
Assessment/Plan Assessment/Plan Hospital Course (Demo Recall) ID PROGRESS NOTE CURRENT ABX: DAY # => Vanco IV + Cefepime + Diflucan + Flagyl 12/14/1851812/14/18518 24H INTERVAL SUMMARY * She spiked another fever 102 this am -- both central lines removed (L-IJ cordis & R-gem TLC) * New LEFT FEM TLC placed this am * WBC down with addition of Diflucan + Flagyl * Repeat UA w/microscopic RBCs + Pyuria w/Cx (-) 24H DIAGNOSTIC IMAGING * 12/13/18 CXR: 1. The endotracheal tube remains satisfactorily positioned. The enteric catheter side-hole lies within the distal esophagus. Ideally the catheter should be advanced by approximately 8 cm.2. The cardiovascular silhouette appears unremarkable. 3. Persistent interstitial prominence at the lung bases discoid atelectasis again seen at the left lung base and a persistent small right pleural fluid accumulation. No pneumothorax is evident. 4. Surgical clips again project to the right axilla. MICRO/OTHER * * 12/11/18 RESP CX: RESPIRATORY CULTURE Preliminary Organism 1 NORMAL RESPIRATORY ABHISHEK QUANTITY 1+ * 12/09/18 ETT Cx: RESPIRATORY CULTURE Final Organism 1 GROVER ALBICANS QUANTITY SCANT GROWTH * 12/11/18 BCx (-) * 12/07/18 BCx (-) * 12/06/18 BCX 2/2 bottles on admission BLOOD CULTURE Final Organism 1 STAPHYLOCOCCUS AUREUS S AUREUS M.I.C. RX --------- --- CEFAZOLIN S CIPROFLOXACIN >=8 R CLINDAMYCIN >=8 R DOXYCYCLINE S ERYTHROMYCIN >=8 R LEVOFLOXACIN >=8 R OXACILLIN 0.5 S PENICILLIN-G >=0.5 R RIFAMPIN <=0.5 S VANCOMYCIN <=0.5 S TRIMETHOPRIM/SULFAMETHOXAZOLE <=10 S PHYSICAL EXAMINATION: GENERAL: Super morbid obese F, orally intubated - VSS on the VENT HEENT: AT, NC, anicteric, ETT SECURE NECK: Supple, Left IJ TLC in place without erythema at site CHEST: Equal chest rise bilaterally, without dyspnea on observation HEART: Pulse RRR ABDOMEN: Soft / NT : FC in place w/scant dark urine EXTREMITIES: Warm, dry, dependent edema x4 SKIN: No rash, no diaphoresis ID ASSESSMENT 47 yo super morbid obese F admit with: 1. Severe sepsis status post shock 2. Oxacillin sensitive staph aureus bacteremia 3. Bilateral HCAP 4. Status post cardiac arrest with hypothermia protocol 5. Acute respiratory failure -- orally intubated 6. Acute CHF w/HFrEF of 35% - systolic HF 7. Suspect underlying RADHA vs obesity hypoventilation syndrome 8. Hx of CVA w/hemiplegia 9. Seizure disorder 10. End-stage renal disease, hemodialysis dependent 11. Diabetes 12. Bilateral buttock STG II decubs -> POA 13. Moist perineal skin folds at risk YEAST -- empiric Monostat VAG-3 suppository (-)MRSA Nares ABX ALLERGIES: KNDA INVASIVES: RUEXT AVF, Left FEM TLC, ETT, FC CURRENT ABX: DAY # => Vanco IV + Cefepime + Diflucan + Flagyl ID RECOMMENDATIONS/PLAN: 1. Central lines removed today due to persistent fevers. 2. New LEFT FEM TLC 3. Continue current ABX coverage . Consultation Date/Type/Reason Admit Date/Time Dec 06, 2018 at 12:45 Initial Consult Date 12/06/18 Requesting Provider: BOZENA PARK Date/Time of Note DATE: 12/14/18 TIME: 11:44 Exam/Review of Systems Exam Vitals Vital Signs Date Temp Pulse Resp B/P (MAP) Pulse Ox O2 O2 Flow FiO2 Time Delivery Rate 12/14/18 75 16 121/46 99 Mechanica 10:00 (71) l Ventilato r 12/14/18 100.2 09:02 12/14/18 30 08:00 Intake and Output 12/13/18 12/13/18 12/14/18 1515:00 23:00 07:00 IntakeIntake Total 878 ml 501 ml 305 ml OutputOutput Total 6800 ml 10 ml 0 ml BalanceBalance -5922 ml 491 ml 305 ml Results Result Diagram: 12/14/18 0512/14/18518 Results 24hrs Laboratory Tests Test 12/13/18 13:02 12/13/18 13:36 4/13/19 18:00 12/13/18 18:34 Bedside Glucose 210 181 Phenytoin (Dilantin) 7.3 L Level Urine Color RED Urine Clarity CLOUDY A Urine pH 8.0 Urine Specific 1.023 [place] Urine Ketones TRACE A Urine Nitrite NEGATIVE Urine Bilirubin NEGATIVE Urine Urobilinogen NEGATIVE Urine Leukocyte NEGATIVE Esterase Urine Microscopic > 182 H RBC Urine Microscopic 155 H WBC Urine Squamous MODERATE Epithelial Cells Urine Hemoglobin 3+ H Urine Glucose 2+ H Urine Total Protein 3+ H Test 12/13/18 20:46 12/14/18 00:27 12/14/18 05:19 12/14/18 05:29 Bedside Glucose 185 221 H 234 H White Blood Count 11.7 H Red Blood Count 3.32 L Hemoglobin 9.8 L Hematocrit 31.8 L Mean Corpuscular 95.8 Volume Mean Corpuscular 29.5 Hemoglobin Mean Corpuscular 30.8 L Hemoglobin Concent Red Cell 15.5 H Distribution Width Platelet Count 162 Mean Platelet Volume 10.7 H Immature 0.900 H Granulocytes % Neutrophils % 82.9 H Lymphocytes % 7.3 L Monocytes % 7.7 Eosinophils % 0.9 Basophils % 0.3 Nucleated Red Blood 0.0 Cells % Immature 0.110 H Granulocytes # Neutrophils # 9.7 H Lymphocytes # 0.9 Monocytes # 0.9 Eosinophils # 0.1 Basophils # 0.0 Nucleated Red Blood 0.0 Cells # Sodium Level 140 Potassium Level 4.7 Chloride Level 100 Carbon Dioxide Level 28 Anion Gap 12 Blood Urea Nitrogen 37 #H Creatinine 3.76 #H Est Glomerular 13 L Filtrat Rate mL/min Glucose Level 225 H Calcium Level 9.6 Phosphorus Level 1.8 L Magnesium Level 2.2 Test 12/14/18 08:16 Bedside Glucose 199 Medications Medication Current Medications Ondansetron HCl (Zofran Inj) 4 mg Q6H PRN IV NAUSEA AND/OR VOMITING; Start 12/06/18 at 09:30 Albuterol (Proventil 0.083% (Neb)) 2.5 mg Q2H RESP THERAPY PRN NEB SHORTNESS OF BREATH; Start 12/06/18 at 09:30 Docusate Sodium (Colace) 100 mg Q12H PRN PO CONSTIPATION; Start 12/06/18 at 09:30 Magnesium Hydroxide (Milk Of Mag) 30 ml DAILY PRN PO CONSTIPATION; Start 12/06/18 at 09:30 Aspirin (Aspirin) 81 mg DAILY PO Last administered on 12/14/18 08:17; Admin Dose 81 MG; Start 12/06/18 at 10:30 Brimonidine Tartrate (Alphagan 0.2%) 1 drop DAILY BOTH EYES Last administered on 12/13/18 18:26; Admin Dose 1 DROP; Start 12/06/18 at 11:00 Calcium Acetate (Phoslo) 667 mg WITH MEALS PO Last administered on 12/14/18 11:27; Admin Dose 667 MG; Start 12/06/18 at 12:00 Docusate Sodium (Colace) 200 mg DAILY PO ; Start 12/06/18 at 10:30; Status Hold Lactulose (Enulose) 20 gm BID PO Last administered on 12/14/18 08:17; Admin Dose 20 GM; Start 12/06/18 at 21:00 Montelukast Sodium (Singulair) 10 mg HS PO ; Start 12/06/18 at 21:00; Status Hold Multivit/Ca Carb/ B Cmplx/FA/Prenat (Mariaelena-Rosas) 1 tab DAILY PO Last administered on 12/14/18 08:17; Admin Dose 1 TAB; Start 12/06/18 at 10:30 Norepinephrine 250 ml @ 1.875 mls/ hr TITRATE IV Last administered on 12/07/18 13:25; Admin Dose 56.25 MLS/HR; Start 12/06/18 at 13:00 Atropine Sulfate (Atropine (Syringe)) 1 mg PRN PRN IV prn Last administered on 12/06/18 16:49; Admin Dose 1 MG; Start 12/06/18 at 16:00 Midazolam HCl 50 ml @ 1 mls/hr TITRATE IV Last administered on 12/09/18 05:09; Admin Dose 4 MLS/HR; Start 12/06/18 at 16:30 Vancomycin HCl (Vanco Iv Per Pharmacy) VANCOMYCIN PER PHARMACY PER PROTOCOL XX ; Start 12/06/18 at 17:30 Cefepime HCl 50 ml @ 100 mls/hr Q24H IVPB Last administered on 12/13/18 20:37; Admin Dose 100 MLS/HR; Start 12/06/18 at 21:00 Levetiracetam 100 ml @ 400 mls/hr Q12 IVPB Last administered on 12/14/18 08:18; Admin Dose 400 MLS/HR; Start 12/06/18 at 21:00 Dopamine HCl/ Dextrose 250 ml @ 7.613 mls/ hr TITRATE IV Last administered on 12/09/18 03:03; Admin Dose 11.419 MLS/HR; Start 12/06/18 at 17:30 Acetaminophen (Tylenol Supp) 650 mg Q4H PRN [place] TEMP > 37C; Start 12/06/18 at 18:30 Meperidine HCl (Demerol) 12.5 mg Q4H PRN IV POST OPERATIVE SHIVERING; Start 12/06/18 at 18:30 Meperidine HCl (Demerol) 25 mg Q4H PRN IV POST OPERATIVE SHIVERING; Start 12/06/18 at 18:30 Eye Lubricant (Akwa Oint) 1 applic Q6 BOTH EYES Last administered on 12/14/18 11:27; Admin Dose 1 APPLIC; Start 12/07/18 at 00:00 Eye Lubricant (Artificial Tears Oph) 2 drop Q6 BOTH EYES Last administered on 12/14/18 11:27; Admin Dose 2 DROP; Start 12/07/18 at 00:00 Magnesium Sulfate 50 ml @ 25 mls/hr PRN PRN IVPB IV PROTOCOL; Start 12/06/18 at 20:30 Potassium Chloride 50 ml @ 25 mls/hr PRN PRN IVPB IV PROTOCOL Last administered on 12/07/18 08:33; Admin Dose 25 MLS/HR; Start 12/06/18 at 20:30 Heparin Sodium (Porcine) (Heparin (1000 Units/ml)) 4,000 unit AFTER DIALYSIS CATHETER ; Start 12/06/18 at 22:00 Albumin Human 100 ml @ 100 mls/hr WITH DIALYSIS PRN IV SBP <90 DURING DIALYSIS Last administered on 12/13/18 08:56; Admin Dose 100 MLS/HR; Start 12/06/18 at 22:00 Sodium Chloride (NS) -To prime the dialy... DIRECTED FOR HD PRN IV HD; Start 12/06/18 at 22:00 Phenytoin 200 mg/ Sodium Chloride 54 ml @ 112 mls/hr AM IV Last administered on 12/14/18 09:02; Admin Dose 112 MLS/HR; Start 12/07/18 at 09:00 Phenytoin 200 mg/ Sodium Chloride 54 ml @ 112 mls/hr PC LUNCH IV Last administered on 12/13/18 12:49; Admin Dose 112 MLS/HR; Start 12/07/18 at 12:30 Phenytoin 300 mg/ Sodium Chloride 56 ml @ 112 mls/hr 2100 IV Last administered on 12/13/18at 20:37; Admin Dose 112 MLS/HR; Start 12/07/18 at 21:00 Fentanyl 100 ml @ 2.5 mls/hr TITRATE IV Last administered on 12/08/18 06:27; Admin Dose 2.5 MLS/HR; Start 12/08/18 at 06:30 Diagnostic Test (Pha) (Accu-Chek) 1 ea 02 XX Last administered on 12/13/18at 01:36; Admin Dose 1 EA; Start 12/09/18 at 02:00 Miscellaneous Information 1 ea NOTE XX ; Start 12/08/18 at 11:30 Glucose (Glutose) 15 gm Q15M PRN PO DECREASED GLUCOSE; Start 12/08/18 at 11:30 Glucose (Glutose) 22.5 gm Q15M PRN PO DECREASED GLUCOSE; Start 12/08/18 at 11:30 Dextrose (D50w Syringe) 25 ml Q15M PRN IV DECREASED GLUCOSE; Start 12/08/18 at 11:30 Dextrose (D50w Syringe) 50 ml Q15M PRN IV DECREASED GLUCOSE; Start 12/08/18 at 11:30 Glucagon (Glucagen) 1 mg Q15M PRN IM DECREASED GLUCOSE; Start 12/08/18 at 11:30 Glucose (Glutose) 15 gm Q15M PRN BUCCAL DECREASED GLUCOSE; Start 12/08/18 at 11:30 Collagenase (Santyl) 1 applic DAILY TOP Last administered on 12/14/18at 08:21; Admin Dose 1 APPLIC; Start 12/10/18 at 09:00 Diagnostic Test (Pha) (Accu-Chek) 1 ea Q4 XX Last administered on 12/14/18 08:21; Admin Dose 1 EA; Start 12/11/18 at 13:00 Total Parenteral Nutrition 1,000 ml @ 50 mls/hr Q20H IV Last administered on 12/12/18at 18:06; Admin Dose 50 MLS/HR; Start 12/11/18 at 18:00; Status Hold Acetaminophen (Tylenol Liquid) 650 mg Q6H PRN GTB MILD PAIN(1-3)OR ELEVATED TEMP Last administered on 12/14/18 08:18; Admin Dose 650 MG; Start 12/11/18 at 20:30 Famotidine (Pepcid Iv) 20 mg Q48H IV Last administered on 12/13/18 09:22; Admin Dose 20 MG; Start 12/13/18 at 07:00 Fluconazole/ Sodium Chloride 50 ml @ 50 mls/hr Q24H IVPB Last administered on 12:59; Admin Dose 50 MLS/HR; Start 12/12/18 at 14:00 Insulin Aspart (Novolog Insulin Pen) NOVOLOG *MODERATE* ALGORITHM Q4 SC Last administered on 12/14/18 08:21; Admin Dose 4 UNIT; Start 12/12/18 at 13:00 Metronidazole 100 ml @ 100 mls/hr Q6 IVPB Last administered on 12/14/18 11:30; Admin Dose 100 MLS/HR; Start 12/13/18 at 12:00 Miconazole (Monistat-7) 2 supp HS VAG Last administered on 12/13/18 20:38; Admin Dose 2 SUPP; Start 12/13/18 at 21:00; Stop 12/15/18 at 21:01 Lorazepam (Ativan) 1 mg Q10MIN PRN IV SEIZURES; Start 12/13/18 at 13:30 Insulin Glargine (Lantus) 25 units DAILY@0800 SC ; Start 12/15/18 at 08:00 Phenytoin 500 mg/ Sodium Chloride 110 ml @ 220 mls/hr ONCE ONCE IV Last administered on 12/14/18 11:26; Admin Dose 220 MLS/HR; Start 12/14/18 at 11:30; Stop 12/14/18 at 11:59 LEILA ALAS NP Dec 14, 2018 11:47
--- NOTE | 2018-12-14 14:00 | CONS ---
Assessment/Plan Assessment/Plan Assessment/Plan (Daily) 1. Cardiopulmonary Arrest--initially secondary to NSVT vs. Afib with aberrancy, thereafter course complicated by Torsades with notable QT prolongation. - Currently on Hypothermia protocol 2. ESRD on HD TTS tim[facility] at [facility] 3. acute hypoxemic respiratory failure due to cardiac arrest s/p Intubation on ventilator 4. Shock--likely cardiogenic; cannot exclude obstructive though clinical picture not consistent with massive PE. 5. Sepsis 2/2 staph bacteremia 6. HTN heart disease 7.. DM 8. severe Anemia with Hb down to 6.9- S/p 2 U PRBC on 12/12/18 Plan: HD ordered for tomorrow morning ,, pt original schedule at HD unit is TTS s/p hypothermia protocol , remains intubated s/p 2 U PRBC given yesterday,continue on Epogen ^6000 units SQ TIW for her anemia, will follow up Consultation Date/Type/Reason Admit Date/Time Dec 06, 2018 at 12:45 Initial Consult Date 12/06/18 Type of Consult NEPHROLOGY Requesting Provider: BOZENA PARK Date/Time of Note DATE: 12/14/18 TIME: 14:00 24 HR Interval Summary Free Text/Dictation no acute events, BP stable, s/p HD yesterday , afebrile, Exam/Review of Systems Exam Vitals Vital Signs Date Temp Pulse Resp B/P (MAP) Pulse Ox O2 O2 Flow FiO2 Time Delivery Rate 12/14/18 73 16 142/73 98 [employer] 12:00 (96) l Ventilato r 12/14/18 100.2 09:02 12/14/18 30 08:00 Intake and Output 12/13/18 12/13/18 12/14/18 1515:00 23:00 07:00 IntakeIntake Total 878 ml 501 ml 305 ml OutputOutput Total 6800 ml 10 ml 0 ml BalanceBalance -5922 ml 491 ml 305 ml Exam Constitutional: non-verbal Head: normocephalic, atraumatic Eyes: nl conjunctiva, nl lids ENMT: intubated Neck: supple, non-tender Respiratory: diminished breath sounds Cardiovascular: irregular rhythm Gastrointestinal: soft, nl liver, spleen, non-tender Extremities: 1+ pitting edema, no clubbing/no cyanosis Neurological: unresponsive Skin: nl turgor Results Result Diagram: 12/14/18 0519 12/14/18 0519 Results 24hrs Laboratory Tests Test 12/13/18 18:00 12/13/18 18:34 12/13/18 20:46 12/14/18 00:27 Urine Color RED Urine Clarity CLOUDY A Urine pH 8.0 Urine Specific 1.023 [place] Urine Ketones TRACE A Urine Nitrite NEGATIVE Urine Bilirubin NEGATIVE Urine Urobilinogen NEGATIVE Urine Leukocyte NEGATIVE Esterase Urine Microscopic > 182 H RBC Urine Microscopic 155 H WBC Urine Squamous MODERATE Epithelial Cells Urine Hemoglobin 3+ H Urine Glucose 2+ H Urine Total Protein 3+ H Bedside Glucose 181 185 221 H Test 12/14/18 05:19 12/14/18 05:29 12/14/18 08:16 12/14/18 12:21 White Blood Count 11.7 H Red Blood Count 3.32 L Hemoglobin 9.8 L Hematocrit 31.8 L Mean Corpuscular 95.8 Volume Mean Corpuscular 29.5 Hemoglobin Mean Corpuscular 30.8 L Hemoglobin Concent Red Cell 15.5 H Distribution Width Platelet Count 162 Mean Platelet Volume 10.7 H Immature 0.900 H Granulocytes % Neutrophils % 82.9 H Lymphocytes % 7.3 L Monocytes % 7.7 Eosinophils % 0.9 Basophils % 0.3 Nucleated Red Blood 0.0 Cells % Immature 0.110 H Granulocytes # Neutrophils # 9.7 H Lymphocytes # 0.9 Monocytes # 0.9 Eosinophils # 0.1 Basophils # 0.0 Nucleated Red Blood 0.0 Cells # Sodium Level 140 Potassium Level 4.7 Chloride Level 100 Carbon Dioxide Level 28 Anion Gap 12 Blood Urea Nitrogen 37 #H Creatinine 3.76 #H Est Glomerular 13 L Filtrat Rate mL/min Glucose Level 225 H Calcium Level 9.6 Phosphorus Level 1.8 L Magnesium Level 2.2 Bedside Glucose 234 H 199 Phenytoin (Dilantin) 11.9 Level Test 12/14/18 13:35 Bedside Glucose 257 H Medications Medication Current Medications Ondansetron HCl (Zofran Inj) 4 mg Q6H PRN IV NAUSEA AND/OR VOMITING; Start 12/06/18 at 09:30 Albuterol (Proventil 0.083% (Neb)) 2.5 mg Q2H RESP THERAPY PRN NEB SHORTNESS OF BREATH; Start 12/06/18 at 09:30 Docusate Sodium (Colace) 100 mg Q12H PRN PO CONSTIPATION; Start 12/06/18 at 09:30 Magnesium Hydroxide (Milk Of Mag) 30 ml DAILY PRN PO CONSTIPATION; Start 12/06/18 at 09:30 Aspirin (Aspirin) 81 mg DAILY PO Last administered on 12/14/18 08:17; Admin Dose 81 MG; Start 12/06/18 at 10:30 Brimonidine Tartrate (Alphagan 0.2%) 1 drop DAILY BOTH EYES Last administered on 12/13/18 18:26; Admin Dose 1 DROP; Start 12/06/18 at 11:00 Calcium Acetate (Phoslo) 667 mg WITH MEALS PO Last administered on 12/14/18 1 1:27; Admin Dose 667 MG; Start 12/06/18 at 12:00 Docusate Sodium (Colace) 200 mg DAILY PO ; Start 12/06/18 at 10:30; Status Hold Lactulose (Enulose) 20 gm BID PO Last administered on 12/14/18 08:17; Admin Dose 20 GM; Start 12/06/18 at 21:00 Montelukast Sodium (Singulair) 10 mg HS PO ; Start 12/06/18 at 21:00; Status Hold Multivit/Ca Carb/ B Cmplx/FA/Prenat (Mariaelena-Rosas) 1 tab DAILY PO Last administ ered on 12/14/18 08:17; Admin Dose 1 TAB; Start 12/06/18 at 10:30 Norepinephrine 250 ml @ 1.875 mls/ hr TITRATE IV Last administered on 12/07/18 13:25; Admin Dose 56.25 MLS/HR; Start 12/06/18 at 13:00 Atropine Sulfate (Atropine (Syringe)) 1 mg PRN PRN IV prn Last administered on 12/06/18 16:49; Admin Dose 1 MG; Start 12/06/18 at 16:00 Midazolam HCl 50 ml @ 1 mls/hr TITRATE IV Last administered on 12/09/18 05:09; Admin Dose 4 MLS/HR; Start 12/06/18 at 16:30 Vancomycin HCl (Vanco Iv Per Pharmacy) VANCOMYCIN PER PHARMACY PER PROTOCOL XX ; Start 12/06/18 at 17:30 Cefepime HCl 50 ml @ 100 mls/hr Q24H IVPB Last administered on 12/13/18 20:37; Admin Dose 100 MLS/HR; Start 12/06/18 at 21:00 Levetiracetam 100 ml @ 400 mls/hr Q12 IVPB Last administered on 12/14/18 08:18; Admin Dose 400 MLS/HR; Start 12/06/18 at 21:00 Dopamine HCl/ Dextrose 250 ml @ 7.613 mls/ hr TITRATE IV Last administered on 12/09/18 03:03; Admin Dose 11.419 MLS/HR; Start 12/06/18 at 17:30 Acetaminophen (Tylenol Supp) 650 mg Q4H PRN [place] TEMP > 37C; Start 12/06/18 at 18:30 Meperidine HCl (Demerol) 12.5 mg Q4H PRN IV POST OPERATIVE SHIVERING; Start 12/06/18 at 18:30 Meperidine HCl (Demerol) 25 mg Q4H PRN IV POST OPERATIVE SHIVERING; Start 12/06/18 at 18:30 Eye Lubricant (Akwa Oint) 1 applic Q6 BOTH EYES Last administered on 12/14/18 11:27; Admin Dose 1 APPLIC; Start 12/07/18 at 00:00 Eye Lubricant (Artificial Tears Oph) 2 drop Q6 BOTH EYES Last administered on 12/14/18 11:27; Admin Dose 2 DROP; Start 12/07/18 at 00:00 Magnesium Sulfate 50 ml @ 25 mls/hr PRN PRN IVPB IV PROTOCOL; Start 12/06/18 at 20:30 Potassium Chloride 50 ml @ 25 mls/hr PRN PRN IVPB IV PROTOCOL Last administered on 12/07/18 08:33; Admin Dose 25 MLS/HR; Start 12/06/18 at 20:30 Heparin Sodium (Porcine) (Heparin (1000 Units/ml)) 4,000 unit AFTER DIALYSIS CATHETER ; Start 12/06/18 at 22:00 Albumin Human 100 ml @ 100 mls/hr WITH DIALYSIS PRN IV SBP <90 DURING DIALYSIS Last administered on 12/13/18 08:56; Admin Dose 100 MLS/HR; Start 12/06/18 at 22:00 Sodium Chloride (NS) -To prime the dialy... DIRECTED FOR HD PRN IV HD; Start 12/06/18 at 22:00 Phenytoin 200 mg/ Sodium Chloride 54 ml @ 112 mls/hr AM IV Last administered on 12/14/18 09:02; Admin Dose 112 MLS/HR; Start 12/07/18 at 09:00 Phenytoin 200 mg/ Sodium Chloride 54 ml @ 112 mls/hr PC LUNCH IV Last administered on 12/14/18 13:38; Admin Dose 112 MLS/HR; Start 12/07/18 at 12:30 Phenytoin 300 mg/ Sodium Chloride 56 ml @ 112 mls/hr 2100 IV Last administered on 12/13/18 20:37; Admin Dose 112 MLS/HR; Start 12/07/18 at 21:00 Fentanyl 100 ml @ 2.5 mls/hr TITRATE IV Last administered on 12/08/18 06:27; Admin Dose 2.5 MLS/HR; Start 12/08/18 at 06:30 Diagnostic Test (Pha) (Accu-Chek) 1 ea 02 XX Last administered on 12/13/18at 01:36; Admin Dose 1 EA; Start 12/09/18 at 02:00 Miscellaneous Information 1 ea NOTE XX ; Start 12/08/18 at 11:30 Glucose (Glutose) 15 gm Q15M PRN PO DECREASED GLUCOSE; Start 12/08/18 at 11:30 Glucose (Glutose) 22.5 gm Q15M PRN PO DECREASED GLUCOSE; Start 12/08/18 at 11:30 Dextrose (D50w Syringe) 25 ml Q15M PRN IV DECREASED GLUCOSE; Start 12/08/18 at 11:30 Dextrose (D50w Syringe) 50 ml Q15M PRN IV DECREASED GLUCOSE; Start 12/08/18 at 11:30 Glucagon (Glucagen) 1 mg Q15M PRN IM DECREASED GLUCOSE; Start 12/08/18 at 11:30 Glucose (Glutose) 15 gm Q15M PRN BUCCAL DECREASED GLUCOSE; Start 12/08/18 at 11:30 Collagenase (Santyl) 1 applic DAILY TOP Last administered on 12/14/18 08:21; Admin Dose 1 APPLIC; Start 12/10/18 at 09:00 Diagnostic Test (Pha) (Accu-Chek) 1 ea Q4 XX Last administered on 12/14/18 08:21; Admin Dose 1 EA; Start 12/11/18 at 13:00 Total Parenteral Nutrition 1,000 ml @ 50 mls/hr Q20H IV Last administered on 12/12/18at 18:06; Admin Dose 50 MLS/HR; Start 12/11/18 at 18:00; Status Hold Acetaminophen (Tylenol Liquid) 650 mg Q6H PRN GTB MILD PAIN(1-3)OR ELEVATED TEMP Last administered on 12/14/18 08:18; Admin Dose 650 MG; Start 12/11/18 at 20:30 Famotidine (Pepcid Iv) 20 mg Q48H IV Last administered on 12/13/18 09:22; Admin Dose 20 MG; Start 12/13/18 at 07:00 Fluconazole/ Sodium Chloride 50 ml @ 50 mls/hr Q24H IVPB Last administered on 12/13/18 12:59; Admin Dose 50 MLS/HR; Start 12/12/18 at 14:00 Insulin Aspart (Novolog Insulin Pen) NOVOLOG *MODERATE* ALGORITHM Q4 SC Last administered on 12/14/18at 13:37; Admin Dose 6 UNIT; Start 12/12/18 at 13:00 Metronidazole 100 ml @ 100 mls/hr Q6 IVPB Last administered on 12/14/18 11:30; Admin Dose 100 MLS/HR; Start 12/13/18 at 12:00 Miconazole (Monistat-7) 2 supp HS VAG Last administered on 12/13/18at 20:38; Admin Dose 2 SUPP; Start 12/13/18 at 21:00; Stop 12/15/18 at 21:01 Lorazepam (Ativan) 1 mg Q10MIN PRN IV SEIZURES; Start 12/13/18 at 13:30 Insulin Glargine (Lantus) 25 units DAILY@0800 SC ; Start 12/15/18 at 08:00 Epoetin Man-epbx (Retacrit) 6,000 unit ONCE ONCE SC ; Start 12/14/18 at 15:00; Stop 12/14/18 at 15:01 Epoetin Man-epbx (Retacrit) 6,000 unit TuThSa@1700 SC ; Start 12/16/18 at 17:00 LAZ MELGAR MD Dec 14, 2018 14:00
--- NOTE | 2018-12-14 14:06 | PN ---
Date/Time of Note Date/Time of Note DATE: 12/14/18 TIME: 14:04 Objective Vitals Vital Signs Date Temp Pulse Resp B/P (MAP) Pulse Ox O2 O2 Flow FiO2 Time Delivery Rate 12/14/18 73 16 142/73 98 [place] 12:00 (96) l Ventilato r 12/14/18 100.2 09:02 12/14/18 30 08:00 Intake and Output 12/13/18 12/13/18 12/14/18 1515:00 23:00 07:00 IntakeIntake Total 878 ml 501 ml 305 ml OutputOutput Total 6800 ml 10 ml 0 ml BalanceBalance -5922 ml 491 ml 305 ml Results Result Diagram: 12/14/1851812/14/18518 Medications Medications Current Medications Ondansetron HCl (Zofran Inj) 4 mg Q6H PRN IV NAUSEA AND/OR VOMITING; Start 12/06/18 at 09:30 Albuterol (Proventil 0.083% (Neb)) 2.5 mg Q2H RESP THERAPY PRN NEB SHORTNESS OF BREATH; Start 12/06/18 at 09:30 Docusate Sodium (Colace) 100 mg Q12H PRN PO CONSTIPATION; Start 12/06/18 at 09:30 Magnesium Hydroxide (Milk Of Mag) 30 ml DAILY PRN PO CONSTIPATION; Start 12/06/18 at 09:30 Aspirin (Aspirin) 81 mg DAILY PO Last administered on 12/14/18at 08:17; Admin Dose 81 MG; Start 12/06/18 at 10:30 Brimonidine Tartrate (Alphagan 0.2%) 1 drop DAILY BOTH EYES Last administered on 12/13/18at 18:26; Admin Dose 1 DROP; Start 12/06/18 at 11:00 Calcium Acetate (Phoslo) 667 mg WITH MEALS PO Last administered on 12/14/18at 11:27; Admin Dose 667 MG; Start 12/06/18 at 12:00 Docusate Sodium (Colace) 200 mg DAILY PO ; Start 12/06/18 at 10:30; Status Hold Lactulose (Enulose) 20 gm BID PO Last administered on 12/14/18at 08:17; Admin Dose 20 GM; Start 12/06/18 at 21:00 Montelukast Sodium (Singulair) 10 mg HS PO ; Start 12/06/18 at 21:00; Status Hold Multivit/Ca Carb/ B Cmplx/FA/Prenat (Mariaelena-Rosas) 1 tab DAILY PO Last administered on 12/14/18 08:17; Admin Dose 1 TAB; Start 12/06/18 at 10:30 Norepinephrine 250 ml @ 1.875 mls/ hr TITRATE IV Last administered on 12/07/18 13:25; Admin Dose 56.25 MLS/HR; Start 12/06/18 at 13:00 Atropine Sulfate (Atropine (Syringe)) 1 mg PRN PRN IV prn Last administered on 12/06/18 16:49; Admin Dose 1 MG; Start 12/06/18 at 16:00 Midazolam HCl 50 ml @ 1 mls/hr TITRATE IV Last administered on 12/09/18 05:09; Admin Dose 4 MLS/HR; Start 12/06/18 at 16:30 Vancomycin HCl (Vanco Iv Per Pharmacy) VANCOMYCIN PER PHARMACY PER PROTOCOL XX ; Start 12/06/18 at 17:30 Cefepime HCl 50 ml @ 100 mls/hr Q24H IVPB Last administered on 12/13/18 20:37; Admin Dose 100 MLS/HR; Start 12/06/18 at 21:00 Levetiracetam 100 ml @ 400 mls/hr Q12 IVPB Last administered on 12/14/18 08:18; Admin Dose 400 MLS/HR; Start 12/06/18 at 21:00 Dopamine HCl/ Dextrose 250 ml @ 7.613 mls/ hr TITRATE IV Last administered on 12/09/18 03:03; Admin Dose 11.419 MLS/HR; Start 12/06/18 at 17:30 Acetaminophen (Tylenol Supp) 650 mg Q4H PRN [place] TEMP > 37C; Start 12/06/18 at 18:30 Meperidine HCl (Demerol) 12.5 mg Q4H PRN IV POST OPERATIVE SHIVERING; Start 12/06/18 at 18:30 Meperidine HCl (Demerol) 25 mg Q4H PRN IV POST OPERATIVE SHIVERING; Start 12/06/18 at 18:30 Eye Lubricant (Akwa Oint) 1 applic Q6 BOTH EYES Last administered on 12/14/18 11:27; Admin Dose 1 APPLIC; Start 12/07/18 at 00:00 Eye Lubricant (Artificial Tears Oph) 2 drop Q6 BOTH EYES Last administered on 12/14/18 11:27; Admin Dose 2 DROP; Start 12/07/18 at 00:00 Magnesium Sulfate 50 ml @ 25 mls/hr PRN PRN IVPB IV PROTOCOL; Start 12/06/18 at 20:30 Potassium Chloride 50 ml @ 25 mls/hr PRN PRN IVPB IV PROTOCOL Last administered on 12/07/18 08:33; Admin Dose 25 MLS/HR; Start 12/06/18 at 20:30 Heparin Sodium (Porcine) (Heparin (1000 Units/ml)) 4,000 unit AFTER DIALYSIS CATHETER ; Start 12/06/18 at 22:00 Albumin Human 100 ml @ 100 mls/hr WITH DIALYSIS PRN IV SBP <90 DURING DIALYSIS Last administered on 12/13/18 08:56; Admin Dose 100 MLS/HR; Start 12/06/18 at 22:00 Sodium Chloride (NS) -To prime the dialy... DIRECTED FOR HD PRN IV HD; Start 12/06/18 at 22:00 Phenytoin 200 mg/ Sodium Chloride 54 ml @ 112 mls/hr AM IV Last administered on 12/14/18 09:02; Admin Dose 112 MLS/HR; Start 12/07/18 at 09:00 Phenytoin 200 mg/ Sodium Chloride 54 ml @ 112 mls/hr PC LUNCH IV Last administered on 12/14/18 13:38; Admin Dose 112 MLS/HR; Start 12/07/18 at 12:30 Phenytoin 300 mg/ Sodium Chloride 56 ml @ 112 mls/hr 2100 IV Last administered on 12/13/18 20:37; Admin Dose 112 MLS/HR; Start 12/07/18 at 21:00 Fentanyl 100 ml @ 2.5 mls/hr TITRATE IV Last administered on 12/08/18 06:27; Admin Dose 2.5 MLS/HR; Start 12/08/18 at 06:30 Diagnostic Test (Pha) (Accu-Chek) 1 ea 02 XX Last administered on 12/13/18 01:36; Admin Dose 1 EA; Start 12/09/18 at 02:00 Miscellaneous Information 1 ea NOTE XX ; Start 12/08/18 at 11:30 Glucose (Glutose) 15 gm Q15M PRN PO DECREASED GLUCOSE; Start 12/08/18 at 11:30 Glucose (Glutose) 22.5 gm Q15M PRN PO DECREASED GLUCOSE; Start 12/08/18 at 11:30 Dextrose (D50w Syringe) 25 ml Q15M PRN IV DECREASED GLUCOSE; Start 12/08/18 at 11:30 Dextrose (D50w Syringe) 50 ml Q15M PRN IV DECREASED GLUCOSE; Start 12/08/18 at 11:30 Glucagon (Glucagen) 1 mg Q15M PRN IM DECREASED GLUCOSE; Start 12/08/18 at 11:30 Glucose (Glutose) 15 gm Q15M PRN BUCCAL DECREASED GLUCOSE; Start 12/08/18 at 11:30 Collagenase (Santyl) 1 applic DAILY TOP Last administered on 12/14/18 08:21; Admin Dose 1 APPLIC; Start 12/10/18 at 09:00 Diagnostic Test (Pha) (Accu-Chek) 1 ea Q4 XX Last administered on 12/14/18 08:21; Admin Dose 1 EA; Start 12/11/18 at 13:00 Total Parenteral Nutrition 1,000 ml @ 50 mls/hr Q20H IV Last administered on 12/12/18 18:06; Admin Dose 50 MLS/HR; Start 12/11/18 at 18:00; Status Hold Acetaminophen (Tylenol Liquid) 650 mg Q6H PRN GTB MILD PAIN(1-3)OR ELEVATED TEMP Last administered on 12/14/18 08:18; Admin Dose 650 MG; Start 12/11/18 at 20:30 Famotidine (Pepcid Iv) 20 mg Q48H IV Last administered on 12/13/18 09:22; Admin Dose 20 MG; Start 12/13/18 at 07:00 Fluconazole/ Sodium Chloride 50 ml @ 50 mls/hr Q24H IVPB Last administered on 12/13/18at 12:59; Admin Dose 50 MLS/HR; Start 12/12/18 at 14:00 Insulin Aspart (Novolog Insulin Pen) NOVOLOG *MODERATE* ALGORITHM Q4 SC Last administered on 12/14/18at 13:37; Admin Dose 6 UNIT; Start 12/12/18 at 13:00 Metronidazole 100 ml @ 100 mls/hr Q6 IVPB Last administered on 12/14/18at 11:30; Admin Dose 100 MLS/HR; Start 12/13/18 at 12:00 Miconazole (Monistat-7) 2 supp HS VAG Last administered on 12/13/18at 20:38; Admin Dose 2 SUPP; Start 12/13/18 at 21:00; Stop 12/15/18 at 21:01 Lorazepam (Ativan) 1 mg Q10MIN PRN IV SEIZURES; Start 12/13/18 at 13:30 Insulin Glargine (Lantus) 25 units DAILY@0800 SC ; Start 12/15/18 at 08:00 Epoetin Man-epbx (Retacrit) 6,000 unit ONCE ONCE SC ; Start 12/14/18 at 15:00; Stop 12/14/18 at 15:01 Epoetin Man-epbx (Retacrit) 6,000 unit TuThSa@1700 SC ; Start 12/16/18 at 17:00 VTE Prophylaxis Risk score (from [facility] [place]0 risk: 9 SCD applied (from [facility] [place]): Yes Lines/Catheters IV Catheter Type: Simpson in Place: Yes Cont'd simpson catheter reason: urinary retention, terminal illness/intractable pain Assessment/Plan Hospital Course Subjective Patient still intubated, off sedation Objective Physical exam General: Patient is intubated Mentation: Patient is intubated but no purposeful movement Head: Normocephalic atraumatic Eyes: EOMI, left pupil is alfredo out chronically Neck: Supple, nontender, midline Respiratory: Coarse to auscultation bilaterally Cardiovascular: Tachycardic rate, no obvious murmurs Gastrointestinal: non-tender to palpation, bowel sounds heard. Neurological: No purposeful movement, occasional cough Skin: No new skin lesions Assessment/Plan S/p Cardiac arrest with ROSC - Patient is currently finished with hypothermia protocol and off sedation and will continue monitoring neurological status - Patient initially with NSVT and given prolonged QT and placement on Amiodarone went into torsades then coded. Patient coded another 3 times total secondary to PEA arrest with ROSC - Cardiology on board and appreciate recommendations. Continue on Dopamine. may need? Cardiac cath if patient recovers - trops remain negative indicating non ischemic etiology for arrest Staph bacteremia -IV antibiotic -Infectious disease consulted Anemia -Was partially due to traumatic Simpson manipulation earlier this week, now that has resolved -Patient is likely iron deficient and reticulocyte count shows evidence of hypo- proliferation -2 units given on December 12, 2018, monitor for bleed, no apparent source is so far -Transfuse as needed Thrombocytopenia -Mild to moderate, monitor closely no obvious signs of bleeding Chronic blindness -Chronic left-sided blindness secondary to diabetic retinopathy, patient also has moderate to severe right-sided blindness secondary to diabetic retinopathy ?Arrhythmia, NSVT - Patient has ? afib and may have had afib with aberrancy but initial event was not captured - EKG showing prolonged QT - noted on Coumadin on med rec but INR normal at time of presentation. Will need to touch base with fam vs patient when she recovers on why she takes Coumadin Hypotension -cardiogenic and septic -off pressors for now, -pressors as needed Sepsis - likely aspiration and now bacteremic given multiple cardiac arrest episodes. - snider cultures drawn and continue on current broad antibiotics -Fever continued throughout the night, decision was made to remove previous lines, cardiothoracic surgeon put in new femoral central line, all old lines were removed. Hypokalemia - replacing as needed DM -Insulin drip changed to sliding scale with Lantus, adjusting daily - A1c noted and uncontrolled ESRD on HD - Nephrology,Dr. Reddy, on board and appreciate consultation. T/T/S scheduled h/o CVA - continue current medications HTN - currently requiring pressor support Disposition -Monitor off sedation as tolerated. Assess for neurological recovery - Palliative on board. Family would like patient to remain full code for now >40 minutes of critical care time spent with patient and family at bedside BOZENA PARK Dec 14, 2018 14:06
[2018-12-14] MEDS: FLUCONAZOLE 100 MG/50 ML (PMX) 50 ML IVPB SCH (14:26)
[2018-12-14] MEDS ORDERED: EPOETIN ALFA-EPBX (ESRD) 3,000 UNIT/ML VIAL SC ONE (15:00)
[2018-12-14] MEDS: PHENYTOIN 300 MG in SOD CHLORIDE 0.9% 50 ML IV SCH (21:35)
[2018-12-14] MEDS: MICONAZOLE 100 MG VAG SUPP VAG SCH (21:35)
[2018-12-14] MEDS: CEFEPIME 1GM/50 ML (PMX) 50 ML IVPB SCH (21:36)
[2018-12-15] VITALS (49 sets, daily range): BP systolic 99–164; BP diastolic 50–95; PULSE 74–85; RESP 12–25
[2018-12-15] MEDS: ACCU-CHEK XX SCH ×7 (01:00→20:24)
[2018-12-15] MEDS: metroNIDAZOLE 500 MG/NS (PMX) 100 ML IVPB SCH ×4 (02:33→17:53)
[2018-12-15] MEDS: OCULAR LUBRICANT 3.5 GM OPH OINT BOTH EYES SCH ×4 (02:33→17:52)
[2018-12-15] MEDS: ARTIFICIAL TEARS 15 ML OPH BOTH EYES SCH ×4 (02:33→17:52)
[2018-12-15] MEDS: INSULIN ASPART [NOVOLOG] 3 ML PEN SC SCH ×6 (02:36→20:36)
[2018-12-15] MEDS: FAMOTIDINE 20 MG INJ IV SCH (05:54)
[2018-12-15] MEDS: ASPIRIN 81 MG TAB PO SCH (08:03)
[2018-12-15] MEDS: LACTULOSE 30ML CUP PO SCH ×2 (08:03→20:25)
[2018-12-15] MEDS: CALCIUM ACETATE 667 MG CAP PO SCH ×3 (08:04→17:52)
[2018-12-15] MEDS: INSULIN GLARGINE [LANTus] (100 UNITS/ML) SYG SC SCH (08:05)
[2018-12-15] MEDS: COLLAGENASE 5 GM (UD JAR) TOP SCH (08:06)
[2018-12-15] MEDS: BRIMONIDINE 0.2% 5 ML BTL BOTH EYES SCH (08:06)
[2018-12-15] MEDS: SOD CHLORIDE 0.9% IV SCH ×2 (08:07→14:04)
[2018-12-15] MEDS: LEVETIRACETAM 500 MG (PMX) 100 ML IVPB SCH ×2 (08:07→20:24)
[2018-12-15] MEDS: PHENYTOIN IV SCH ×2 (08:07→14:04)
--- NOTE | 2018-12-15 08:12 | CONS ---
Assessment/Plan Assessment/Plan Assessment/Plan (Daily) Ventilator setting; AC of 12, tidal volume 400, PEEP of 5, 30% FiO2. Chest x-ray was reviewed from yesterday which is clear. Assessment and recommendations; 1. patient is status post cardiac arrest with severe anoxic encephalopathy. 2 chronic renal failure, hemodialysis dependent. 3. Bilateral pneumonia with significant interval radiological and clinical improvement. 4. C. difficile colitis. 5. Stable seizure disorder. 6. Anemia and thrombocytopenia. Continue current supportive care. Patient's family to decide about CODE STATUS. They certainly do not want tracheostomy at this point. Prognosis appears very poor. Consider stopping antibiotics. Consultation Date/Type/Reason Admit Date/Time Dec 06, 2018 at 12:45 Initial Consult Date 12/06/18 Type of Consult Pulmonary/critical care Requesting Provider: BOZENA PARK Date/Time of Note DATE: 12/15/18 TIME: 08:08 24 HR Interval Summary Free Text/Dictation Patient's condition remains critical. Remains completely unresponsive. However has remained hemodynamically stable. General exam; middle-aged female, orally intubated, unresponsive, currently in no distress. Exam/Review of Systems Exam Vitals Vital Signs Date Temp Pulse Resp B/P (MAP) Pulse Ox O2 O2 Flow FiO2 Time Delivery Rate 12/15/18 81 19 163/67 100 Mechanical 06:00 (99) Ventilator 12/15/18 30 05:19 12/15/18 99.0 04:00 Intake and Output 12/14/18 12/14/18 12/15/18 1515:00 23:00 07:00 IntakeIntake Total 848 ml 526 ml 310 ml OutputOutput Total 20 ml 300 ml BalanceBalance 828 ml 226 ml 310 ml Exam H EENT exam; supple neck, JVD difficult to see because of short neck. There is facial plethora. Orally intubated. No neck masses. There is bilateral subconjunctival edema present. There is a left corneal opacity. Chest exam; clear to auscultation. S1-S2 audible, no murmurs. Regular rhythm. Abdomen exam; soft, mildly protuberant. Bowel sounds audible. Extremity exam; no edema. BOTTLE BOOTH ATTENDANT exam; patient is unresponsive. Results Result Diagram: 12/15/18 0757 12/15/18 0430 Results 24hrs Laboratory Tests Test 12/14/18 08:16 12/14/18 12:21 12/14/18 13:35 12/14/18 16:55 Bedside Glucose 199 257 H 242 H Phenytoin (Dilantin) 11.9 Level Test 12/14/18 21:41 12/15/18 02:32 12/15/18 04:00 12/15/18 04:30 Bedside Glucose 204 254 H White Blood Count 14.7 #H Red Blood Count 2.95 L Hemoglobin 8.8 L Hematocrit 28.7 L Mean Corpuscular 97.3 Volume Mean Corpuscular 29.8 Hemoglobin Mean Corpuscular 30.7 L Hemoglobin Concent Red Cell 15.3 H Distribution Width Platelet Count 179 Mean Platelet Volume 10.4 Immature 1.100 H Granulocytes % Neutrophils % 85.0 H Lymphocytes % 5.0 L Monocytes % 7.2 Eosinophils % 1.4 Basophils % 0.3 Nucleated Red Blood 0.0 Cells % Immature 0.160 H Granulocytes # Neutrophils # 12.5 H Lymphocytes # 0.7 L Monocytes # 1.1 H Eosinophils # 0.2 Basophils # 0.1 Nucleated Red Blood 0.0 Cells # Sodium Level 141 Potassium Level 3.7 Chloride Level 101 Carbon Dioxide Level 26 Anion Gap 14 H Blood Urea Nitrogen 55 H Creatinine 5.04 H Est Glomerular 9 L Filtrat Rate mL/min Glucose Level 220 Calcium Level 9.6 Phosphorus Level 1.8 L Magnesium Level 2.3 Test 12/15/18 04:35 12/15/18 05:51 12/15/18 07:57 12/15/18 08:03 Random Vancomycin 15.4 Level Bedside Glucose 212 236 H Hemoglobin 9.0 L Hematocrit 29.4 L Medications Medication Current Medications Ondansetron HCl (Zofran Inj) 4 mg Q6H PRN IV NAUSEA AND/OR VOMITING; Start 12/06/18 at 09:30 Albuterol (Proventil 0.083% (Neb)) 2.5 mg Q2H RESP THERAPY PRN NEB SHORTNESS OF BREATH; Start 12/06/18 at 09:30 Docusate Sodium (Colace) 100 mg Q12H PRN PO CONSTIPATION; Start 12/06/18 at 09:30 Magnesium Hydroxide (Milk Of Mag) 30 ml DAILY PRN PO CONSTIPATION; Start 12/06/18 at 09:30 Aspirin (Aspirin) 81 mg DAILY PO Last administered on 4/14/19at 08:17; Admin Dose 81 MG; Start 12/06/18 at 10:30 Brimonidine Tartrate (Alphagan 0.2%) 1 drop DAILY BOTH EYES Last administered on 12/13/18 18:26; Admin Dose 1 DROP; Start 12/06/18 at 11:00 Calcium Acetate (Phoslo) 667 mg WITH MEALS PO Last administered on 12/14/18 16:57; Admin Dose 667 MG; Start 12/06/18 at 12:00 Docusate Sodium (Colace) 200 mg DAILY PO ; Start 12/06/18 at 10:30; Status Hold Lactulose (Enulose) 20 gm BID PO Last administered on 12/14/18 08:17; Admin Dose 20 GM; Start 12/06/18 at 21:00 Montelukast Sodium (Singulair) 10 mg HS PO ; Start 12/06/18 at 21:00; Status Hold Multivit/Ca Carb/ B Cmplx/FA/Prenat (Mariaelena-Rosas) 1 tab DAILY PO Last administered on 12/14/18 08:17; Admin Dose 1 TAB; Start 12/06/18 at 10:30 Norepinephrine 250 ml @ 1.875 mls/ hr TITRATE IV Last administered on 12/07/18 13:25; Admin Dose 56.25 MLS/HR; Start 12/06/18 at 13:00 Atropine Sulfate (Atropine (Syringe)) 1 mg PRN PRN IV prn Last administered on 12/06/18 16:49; Admin Dose 1 MG; Start 12/06/18 at 16:00 Midazolam HCl 50 ml @ 1 mls/hr TITRATE IV Last administered on 12/09/18 05:09; Admin Dose 4 MLS/HR; Start 12/06/18 at 16:30 Vancomycin HCl (Vanco Iv Per Pharmacy) VANCOMYCIN PER PHARMACY PER PROTOCOL XX ; Start 12/06/18 at 17:30 Cefepime HCl 50 ml @ 100 mls/hr Q24H IVPB Last administered on 12/14/18 21:36; Admin Dose 100 MLS/HR; Start 12/06/18 at 21:00 Levetiracetam 100 ml @ 400 mls/hr Q12 IVPB Last administered on 12/14/18 21:35; Admin Dose 400 MLS/HR; Start 12/06/18 at 21:00 Dopamine HCl/ Dextrose 250 ml @ 7.613 mls/ hr TITRATE IV Last administered on 12/09/18at 03:03; Admin Dose 11.419 MLS/HR; Start 12/06/18 at 17:30 Acetaminophen (Tylenol Supp) 650 mg Q4H PRN [place] TEMP > 37C; Start 12/06/18 at 18:30 Meperidine HCl (Demerol) 12.5 mg Q4H PRN IV POST OPERATIVE SHIVERING; Start 12/06/18 at 18:30 Meperidine HCl (Demerol) 25 mg Q4H PRN IV POST OPERATIVE SHIVERING; Start 12/06/18 at 18:30 Eye Lubricant (Akwa Oint) 1 applic Q6 BOTH EYES Last administered on 12/15/18at 05:52; Admin Dose 1 APPLIC; Start 12/07/18 at 00:00 Eye Lubricant (Artificial Tears Oph) 2 drop Q6 BOTH EYES Last administered on 12/15/18 05:51; Admin Dose 2 DROP; Start 12/07/18 at 00:00 Magnesium Sulfate 50 ml @ 25 mls/hr PRN PRN IVPB IV PROTOCOL; Start 12/06/18 at 20:30 Potassium Chloride 50 ml @ 25 mls/hr PRN PRN IVPB IV PROTOCOL Last administered on 12/07/18at 08:33; Admin Dose 25 MLS/HR; Start 12/06/18 at 20:30 Heparin Sodium (Porcine) (Heparin (1000 Units/ml)) 4,000 unit AFTER DIALYSIS CATHETER ; Start 12/06/18 at 22:00 Albumin Human 100 ml @ 100 mls/hr WITH DIALYSIS PRN IV SBP <90 DURING DIALYSIS Last administered on 12/13/18at 08:56; Admin Dose 100 MLS/HR; Start 12/06/18 at 22 :00 Sodium Chloride (NS) -To prime the dialy... DIRECTED FOR HD PRN IV HD; Start 12/06/18 at 22:00 Phenytoin 200 mg/ Sodium Chloride 54 ml @ 112 mls/hr AM IV Last administered on 12/14/18at 09:02; Admin Dose 112 MLS/HR; Start 12/07/18 at 09:00 Phenytoin 200 mg/ Sodium Chloride 54 ml @ 112 mls/hr PC LUNCH IV Last administered on 12/14/18 13:38; Admin Dose 112 MLS/HR; Start 12/07/18 at 12:30 Phenytoin 300 mg/ Sodium Chloride 56 ml @ 112 mls/hr 2100 IV Last administered on 12/14/18at 21:35; Admin Dose 112 MLS/HR; Start 12/07/18 at 21:00 Fentanyl 100 ml @ 2.5 mls/hr TITRATE IV Last administered on 12/08/18at 06:27; Admin Dose 2.5 MLS/HR; Start 12/08/18 at 06:30 Diagnostic Test (Pha) (Accu-Chek) 1 ea 02 XX Last administered on 12/13/18at 01:36; Admin Dose 1 EA; Start 12/09/18 at 02:00 Miscellaneous Information 1 ea NOTE XX ; Start 12/08/18 at 11:30 Glucose (Glutose) 15 gm Q15M PRN PO DECREASED GLUCOSE; Start 12/08/18 at 11:30 Glucose (Glutose) 22.5 gm Q15M PRN PO DECREASED GLUCOSE; Start 12/08/18 at 11:30 Dextrose (D50w Syringe) 25 ml Q15M PRN IV DECREASED GLUCOSE; Start 12/08/18 at 11:30 Dextrose (D50w Syringe) 50 ml Q15M PRN IV DECREASED GLUCOSE; Start 12/08/18 at 11:30 Glucagon (Glucagen) 1 mg Q15M PRN IM DECREASED GLUCOSE; Start 12/08/18 at 11:30 Glucose (Glutose) 15 gm Q15M PRN BUCCAL DECREASED GLUCOSE; Start 12/08/18 at 11:30 Collagenase (Santyl) 1 applic DAILY TOP Last administered on 12/14/18at 08:21; Admin Dose 1 APPLIC; Start 12/10/18 at 09:00 Diagnostic Test (Pha) (Accu-Chek) 1 ea Q4 XX Last administered on 12/14/18 08:21; Admin Dose 1 EA; Start 12/11/18 at 13:00 Total Parenteral Nutrition 1,000 ml @ 50 mls/hr Q20H IV Last administered on 12/12/18at 18:06; Admin Dose 50 MLS/HR; Start 12/11/18 at 18:00; Status Hold Acetaminophen (Tylenol Liquid) 650 mg Q6H PRN GTB MILD PAIN(1-3)OR ELEVATED TEMP Last administered on 12/14/18 08:18; Admin Dose 650 MG; Start 12/11/18 at 20:30 Famotidine (Pepcid Iv) 20 mg Q48H IV Last administered on 12/15/18 05:54; Admin Dose 20 MG; Start 12/13/18 at 07:00 Fluconazole/ Sodium Chloride 50 ml @ 50 mls/hr Q24H IVPB Last administered on 12/14/18 14:26; Admin Dose 50 MLS/HR; Start 12/12/18 at 14:00 Insulin Aspart (Novolog Insulin Pen) NOVOLOG *MODERATE* ALGORITHM Q4 SC Last administered on 12/15/18 06:10; Admin Dose 4 UNIT; Start 12/12/18 at 13:00 Metronidazole 100 ml @ 100 mls/hr Q6 IVPB Last administered on 12/15/18 05:52; Admin Dose 100 MLS/HR; Start 12/13/18 at 12:00 Miconazole (Monistat-7) 2 supp HS VAG Last administered on 12/14/18at 21:35; Admin Dose 2 SUPP; Start 12/13/18 at 21:00; Stop 12/15/18 at 21:01 Lorazepam (Ativan) 1 mg Q10MIN PRN IV SEIZURES Last administered on 12/14/18 17:16; Admin Dose 1 MG; Start 12/13/18 at 13:30 Insulin Glargine (Lantus) 25 units DAILY@0800 SC ; Start 12/15/18 at 08:00 Epoetin Man-epbx (Retacrit) 6,000 unit TuThSa@1700 SC ; Start 12/16/18 at 17:00 Vancomycin HCl 250 ml @ 125 mls/hr Q96H IVPB ; Start 12/15/18 at 18:00 DINESH SAVAGE Dec 15, 2018 08:12
[2018-12-15] MEDS: MULTIVIT/CA CARB/B CMPLX/FA TAB PO SCH (08:19)
--- NOTE | 2018-12-15 10:48 | PN ---
Date/Time of Note Date/Time of Note DATE: 12/15/18 TIME: 10:46 Objective Vitals Vital Signs Date Temp Pulse Resp B/P (MAP) Pulse Ox O2 O2 Flow FiO2 Time Delivery Rate 12/15/18 77 22 146/60 100 Mechanica 10:00 (88) l Ventilato r 12/15/18 100.0 08:00 12/15/18 30 08:00 Intake and Output 12/14/18 12/14/18 12/15/18 1515:00 23:00 07:00 IntakeIntake Total 848 ml 526 ml 310 ml OutputOutput Total 20 ml 300 ml BalanceBalance 828 ml 226 ml 310 ml Results Result Diagram: 12/15/18 0757 12/15/18 0430 Medications Medications Current Medications Ondansetron HCl (Zofran Inj) 4 mg Q6H PRN IV NAUSEA AND/OR VOMITING; Start 12/06/18 at 09:30 Albuterol (Proventil 0.083% (Neb)) 2.5 mg Q2H RESP THERAPY PRN NEB SHORTNESS OF BREATH; Start 12/06/18 at 09:30 Docusate Sodium (Colace) 100 mg Q12H PRN PO CONSTIPATION; Start 12/06/18 at 09:30 Magnesium Hydroxide (Milk Of Mag) 30 ml DAILY PRN PO CONSTIPATION; Start 12/06/18 at 09:30 Aspirin (Aspirin) 81 mg DAILY PO Last administered on 12/15/18at 08:03; Admin D ose 81 MG; Start 12/06/18 at 10:30 Brimonidine Tartrate (Alphagan 0.2%) 1 drop DAILY BOTH EYES Last administered on 12/15/18at 08:06; Admin Dose 1 DROP; Start 12/06/18 at 11:00 Calcium Acetate (Phoslo) 667 mg WITH MEALS PO Last administered on 12/15/18at 08:04; Admin Dose 667 MG; Start 12/06/18 at 12:00 Docusate Sodium (Colace) 200 mg DAILY PO ; Start 12/06/18 at 10:30; Status Hold Lactulose (Enulose) 20 gm BID PO Last administered on 12/15/18at 08:03; Admin Dose 20 GM; Start 12/06/18 at 21:00 Montelukast Sodium (Singulair) 10 mg HS PO ; Start 12/06/18 at 21:00; Status Hold Multivit/Ca Carb/ B Cmplx/FA/Prenat (Mariaelena-Rosas) 1 tab DAILY PO Last administered on 12/15/18 08:19; Admin Dose 1 TAB; Start 12/06/18 at 10:30 Norepinephrine 250 ml @ 1.875 mls/ hr TITRATE IV Last administered on 12/07/18 13:25; Admin Dose 56.25 MLS/HR; Start 12/06/18 at 13:00 Atropine Sulfate (Atropine (Syringe)) 1 mg PRN PRN IV prn Last administered on 12/06/18 16:49; Admin Dose 1 MG; Start 12/06/18 at 16:00 Midazolam HCl 50 ml @ 1 mls/hr TITRATE IV Last administered on 12/09/18 05:09; Admin Dose 4 MLS/HR; Start 12/06/18 at 16:30 Vancomycin HCl (Vanco Iv Per Pharmacy) VANCOMYCIN PER PHARMACY PER PROTOCOL XX ; Start 12/06/18 at 17:30 Cefepime HCl 50 ml @ 100 mls/hr Q24H IVPB Last administered on 12/14/18 21:3 6; Admin Dose 100 MLS/HR; Start 12/06/18 at 21:00 Levetiracetam 100 ml @ 400 mls/hr Q12 IVPB Last administered on 12/15/18 08:07; Admin Dose 400 MLS/HR; Start 12/06/18 at 21:00 Dopamine HCl/ Dextrose 250 ml @ 7.613 mls/ hr TITRATE IV Last administered on 12/09/18 03:03; Admin Dose 11.419 MLS/HR; Start 12/06/18 at 17:30 Acetaminophen (Tylenol Supp) 650 mg Q4H PRN NC TEMP > 37C; Start 12/06/18 at 18:30 Meperidine HCl (Demerol) 12.5 mg Q4H PRN IV POST OPERATIVE SHIVERING; Start 12/06/18 at 18:30 Meperidine HCl (Demerol) 25 mg Q4H PRN IV POST OPERATIVE SHIVERING; Start 12/06/18 at 18:30 Eye Lubricant (Akwa Oint) 1 applic Q6 BOTH EYES Last administered on 12/15/18 05:52; Admin Dose 1 APPLIC; Start 12/07/18 at 00:00 Eye Lubricant (Artificial Tears Oph) 2 drop Q6 BOTH EYES Last administered on 12/15/18 05:51; Admin Dose 2 DROP; Start 12/07/18 at 00:00 Magnesium Sulfate 50 ml @ 25 mls/hr PRN PRN IVPB IV PROTOCOL; Start 12/06/18 at 20:30 Potassium Chloride 50 ml @ 25 mls/hr PRN PRN IVPB IV PROTOCOL Last administered on 12/07/18 08:33; Admin Dose 25 MLS/HR; Start 12/06/18 at 20:30 Heparin Sodium (Porcine) (Heparin (1000 Units/ml)) 4,000 unit AFTER DIALYSIS CATHETER ; Start 12/06/18 at 22:00 Albumin Human 100 ml @ 100 mls/hr WITH DIALYSIS PRN IV SBP <90 DURING DIALYSIS Last administered on 12/13/18 08:56; Admin Dose 100 MLS/HR; Start 12/06/18 at 22:00 Sodium Chloride (NS) -To prime the dialy... DIRECTED FOR HD PRN IV HD; Start 12/06/18 at 22:00 Phenytoin 200 mg/ Sodium Chloride 54 ml @ 112 mls/hr AM IV Last administered on 12/15/18 08:07; Admin Dose 112 MLS/HR; Start 12/07/18 at 09:00 Phenytoin 200 mg/ Sodium Chloride 54 ml @ 112 mls/hr PC LUNCH IV Last administered on 12/14/18 13:38; Admin Dose 112 MLS/HR; Start 12/07/18 at 12:30 Phenytoin 300 mg/ Sodium Chloride 56 ml @ 112 mls/hr 2100 IV Last administered on 12/14/18 21:35; Admin Dose 112 MLS/HR; Start 12/07/18 at 21:00 Fentanyl 100 ml @ 2.5 mls/hr TITRATE IV Last administered on 12/08/18 06:27; Admin Dose 2.5 MLS/HR; Start 12/08/18 at 06:30 Diagnostic Test (Pha) (Accu-Chek) 1 ea 02 XX Last administered on 12/13/18 01:36; Admin Dose 1 EA; Start 12/09/18 at 02:00 Miscellaneous Information 1 ea NOTE XX ; Start 12/08/18 at 11:30 Glucose (Glutose) 15 gm Q15M PRN PO DECREASED GLUCOSE; Start 12/08/18 at 11:30 Glucose (Glutose) 22.5 gm Q15M PRN PO DECREASED GLUCOSE; Start 12/08/18 at 11:30 Dextrose (D50w Syringe) 25 ml Q15M PRN IV DECREASED GLUCOSE; Start 12/08/18 at 11:30 Dextrose (D50w Syringe) 50 ml Q15M PRN IV DECREASED GLUCOSE; Start 12/08/18 at 11:30 Glucagon (Glucagen) 1 mg Q15M PRN IM DECREASED GLUCOSE; Start 12/08/18 at 11:30 Glucose (Glutose) 15 gm Q15M PRN BUCCAL DECREASED GLUCOSE; Start 12/08/18 at 11:30 Collagenase (Santyl) 1 applic DAILY TOP Last administered on 12/15/18 08:06; Admin Dose 1 APPLIC; Start 12/10/18 at 09:00 Diagnostic Test (Pha) (Accu-Chek) 1 ea Q4 XX Last administered on 12/14/18 08:21; Admin Dose 1 EA; Start 12/11/18 at 13:00 Total Parenteral Nutrition 1,000 ml @ 50 mls/hr Q20H IV Last administered on 12/12/18 18:06; Admin Dose 50 MLS/HR; Start 12/11/18 at 18:00; Status Hold Acetaminophen (Tylenol Liquid) 650 mg Q6H PRN GTB MILD PAIN(1-3)OR ELEVATED TE MP Last administered on 12/14/18 08:18; Admin Dose 650 MG; Start 12/11/18 at 20:30 Famotidine (Pepcid Iv) 20 mg Q48H IV Last administered on 12/15/18 05:54; Admin Dose 20 MG; Start 12/13/18 at 07:00 Fluconazole/ Sodium Chloride 50 ml @ 50 mls/hr Q24H IVPB Last administered on 12/14/18 14:26; Admin Dose 50 MLS/HR; Start 12/12/18 at 14:00 Insulin Aspart (Novolog Insulin Pen) NOVOLOG *MODERATE* ALGORITHM Q4 SC Last administered on 12/15/18 08:06; Admin Dose 6 UNIT; Start 12/12/18 at 13:00 Metronidazole 100 ml @ 100 mls/hr Q6 IVPB Last administered on 12/15/18at 05:52; Admin Dose 100 MLS/HR; Start 12/13/18 at 12:00 Miconazole (Monistat-7) 2 supp HS VAG Last administered on 12/14/18at 21:35; Admin Dose 2 SUPP; Start 12/13/18 at 21:00; Stop 12/15/18 at 21:01 Lorazepam (Ativan) 1 mg Q10MIN PRN IV SEIZURES Last administered on 12/14/18at 17:16; Admin Dose 1 MG; Start 12/13/18 at 13:30 Insulin Glargine (Lantus) 25 units DAILY@0800 SC Last administered on 12/15/18at 08:05; Admin Dose 25 UNITS; Start 12/15/18 at 08:00 Epoetin Man-epbx (Retacrit) 6,000 unit TuThSa@1700 SC ; Start 12/16/18 at 17:00 Vancomycin HCl 250 ml @ 125 mls/hr Q96H IVPB ; Start 12/15/18 at 18:00 VTE Prophylaxis Risk score (from Ns)>0 risk: 15 SCD applied (from [facility]): Yes Lines/Catheters IV Catheter Type: Wheeler in Place: No Assessment/Plan Hospital Course Subjective Patient still intubated, off sedation Objective Physical exam General: Patient is intubated Mentation: Patient is intubated but no purposeful movement Head: Normocephalic atraumatic Eyes: EOMI, left pupil is alfredo out chronically Neck: Supple, nontender, midline Respiratory: Coarse to auscultation bilaterally Cardiovascular: Tachycardic rate, no obvious murmurs Gastrointestinal: non-tender to palpation, bowel sounds heard. Neurological: No purposeful movement, occasional cough Skin: No new skin lesions Assessment/Plan S/p Cardiac arrest with ROSC - Patient is currently finished with hypothermia protocol and off sedation and will continue monitoring neurological status - Patient initially with NSVT and given prolonged QT and placement on Amiodarone went into torsades then coded. Patient coded another 3 times total secondary to PEA arrest with ROSC - Cardiology on board and appreciate recommendations. Continue on Dopamine. may need? Cardiac cath if patient recovers - trops remain negative indicating non ischemic etiology for arrest Staph bacteremia -IV antibiotic -Infectious disease consulted Anemia -Was partially due to traumatic Wheeler manipulation earlier last week, now that has resolved -Patient is likely iron deficient and reticulocyte count shows evidence of hypo- proliferation -2 units given on December 12, 2018, monitor for bleed, no apparent source is so far, but there was a drop in hgb overnight.....unknown where....fem line was replaced yesterday but nurse stated not much blood loss. fecal occult sent out, but nursing noting that bowel movements are brown/ling. Also very small amount of blood suctioning canister, but wouldn't explain a 1 unit decrease, monitor closely for bleed, liver panel normal, low suspicion of hemolysis. -Transfuse as needed Thrombocytopenia -Mild to moderate, monitor closely no obvious signs of bleeding Chronic blindness -Chronic left-sided blindness secondary to diabetic retinopathy, patient also has moderate to severe right-sided blindness secondary to diabetic retinopathy ?Arrhythmia, NSVT - Patient has ? afib and may have had afib with aberrancy but initial event was not captured - EKG showing prolonged QT - noted on Coumadin on med rec but INR normal at time of presentation. Will need to touch base with fam vs patient when she recovers on why she takes Coumadin Hypotension -cardiogenic and septic -off pressors for now, -pressors as needed Sepsis - likely aspiration and now bacteremic given multiple cardiac arrest episodes. - snider cultures drawn and continue on current broad antibiotics -Fever continued throughout the night, decision was made to remove previous lines, cardiothoracic surgeon put in new femoral central line, all old lines were removed. Hypokalemia - replacing as needed DM -Insulin drip changed to sliding scale with Lantus, adjusting daily - A1c noted and uncontrolled ESRD on HD - Nephrology,Dr. Reddy, on board and appreciate consultation. T/T/S scheduled h/o CVA - continue current medications HTN - currently requiring pressor support Disposition -Monitor off sedation as tolerated. Assess for neurological recovery - Palliative on board. Family would like patient to remain full code for now >40 minutes of critical care time spent with patient and family at bedside BOZENA PARK Dec 15, 2018 10:48
--- NOTE | 2018-12-15 11:02 | CONS ---
Assessment/Plan Assessment/Plan Hospital Course 47 F c/ reported Hx of stroke and epilepsy, among other comorbidities, who is currently admitted to the [facility] ICU following cardiac arrest. Now s/p TTM. On neurologic examination, she has preserved brainstem activity and a withdrawal motor response.. Her prognosis for meaningful neurologic recovery is probably poor. CTH was without acute intracranial pathology, though it was notable for severe atrophy and chronic subdurals. Initial EEG was without epileptiform activity; repeat EEG is the same. P: Continue Dilantin maintenance per ops for now; titrate prn to goal level 10-20 Continue Keppra per ops for now Ativan iv prn prolonged seizure or cluster Continue to limit sedating medications where possible Other medical management and supportive care per primary Will follow clinically Consultation Date/Type/Reason Admit Date/Time Dec 06, 2018 at 12:45 Type of Consult Neurology Requesting Provider: BOZENA PARK Date/Time of Note DATE: 12/15/18 TIME: 10:59 24 HR Interval Summary Free Text/Dictation Continues critical care. No seizure episodes or rhythmic movements reported. Subjective hx not possible: pt non-verbal, pt critical Exam Vital Signs Vitals Vital Signs Date Temp Pulse Resp B/P (MAP) Pulse Ox O2 O2 Flow FiO2 Time Delivery Rate 12/15/18 77 22 146/60 100 Mechanica 10:00 (88) l Ventilato r 12/15/18 100.0 08:00 12/15/18 30 08:00 Intake and Output 12/14/18 12/14/18 12/15/18 1515:00 23:00 07:00 IntakeIntake Total 848 ml 526 ml 310 ml OutputOutput Total 20 ml 300 ml BalanceBalance 828 ml 226 ml 310 ml Exam PE: Gen Appearance: No Apparent Distress HEENT: Intubated Cardiovascular: Regular rate Abdomen: Soft Extremities: Dry; edematous NE: The patient was comatose. Cranial nerve examination was limited by mental status. R pupil was sluggishly reactive to light; cataract in L pupil. Funduscopic examination was limited. Face was grossly symmetric, w/ present corneal and cough reflexes. Tone was normal. Muscle bulk was normal. I did not see fasciculations. The patient withdrew her lower extremities to noxious stimuli. Coordination and gait testing was limited by mental status. Arm and leg reflexes were symmetric. Sun's sign was absent. Plantar responses were extensor. APARNA AQUINO NP Dec 15, 2018 11:02 BEN DICKINSON Dec 15, 2018 13:13
--- NOTE | 2018-12-15 11:33 | CONS ---
Assessment/Plan Assessment/Plan Hospital Course (Demo Recall) Patient is in hemodialysis, noncommunicative, in no distress. Still with low- grade fevers. WBC 14.7 platelets 179 neutrophils 85. Indwelling: Endotracheal tube, NG tube, right upper extremity AV fistula, right femoral triple-lumen catheter 12/14/18 Antimicrobials: Vancomycin, Flagyl, fluconazole, cefepime Blood cultures on admission grew oxacillin sensitive staph aureus, repeat blood cultures negative urine culture negative sputum culture grew Rosa albicans Physical examination: Obese chronically ill-appearing middle-aged woman who is noncommunicative intubated in no distress. Head atraumatic normocephalic neck is obese chest rise symmetrical breath sounds diminished bases heart S1-S2 abdomen obese soft bowel sounds hypoactive extremities with trace edema Assessment: 1. Severe sepsis status post shock 2. Bilateral pneumonia 3. Oxacillin sensitive staph aureus bacteremia 4. Status post cardiac arrest with hypothermia protocol 5. Diabetes 6. Seizure disorder 7. End-stage renal disease, hemodialysis dependent 8. Cardiomyopathy with ejection fraction of 35% Plan: Clinically unchanged, status post new femoral triple-lumen catheter placed yesterday, continue on current antibiotics Consultation Date/Type/Reason Admit Date/Time Dec 06, 2018 at 12:45 Initial Consult Date 12/06/18 Type of Consult id Requesting Provider: BOZENA PARK Date/Time of Note DATE: 12/15/18 TIME: 11:32 Exam/Review of Systems Exam Vitals Vital Signs Date Temp Pulse Resp B/P (MAP) Pulse Ox O2 O2 Flow FiO2 Time Delivery Rate 12/15/18 77 22 146/60 100 Mechanica 10:00 (88) l Ventilato r 12/15/18 100.0 08:00 12/15/18 30 08:00 Intake and Output 12/14/18 12/14/18 12/15/18 1515:00 23:00 07:00 IntakeIntake Total 848 ml 526 ml 310 ml OutputOutput Total 20 ml 300 ml BalanceBalance 828 ml 226 ml 310 ml Results Result Diagram: 12/15/18 0757 12/15/18 0430 Results 24hrs Laboratory Tests Test 12/14/18 12:21 12/14/18 13:35 12/14/18 16:55 12/14/18 21:41 Phenytoin (Dilantin) 11.9 Level Bedside Glucose 257 H 242 H 204 Test 12/15/18 02:32 12/15/18 04:00 12/15/18 04:30 12/15/18 04:35 Bedside Glucose 254 H White Blood Count 14.7 #H Red Blood Count 2.95 L Hemoglobin 8.8 L Hematocrit 28.7 L Mean Corpuscular 97.3 Volume Mean Corpuscular 29.8 Hemoglobin Mean Corpuscular 30.7 L Hemoglobin Concent Red Cell 15.3 H Distribution Width Platelet Count 179 Mean Platelet Volume 10.4 Immature 1.100 H Granulocytes % Neutrophils % 85.0 H Lymphocytes % 5.0 L Monocytes % 7.2 Eosinophils % 1.4 Basophils % 0.3 Nucleated Red Blood 0.0 Cells % Immature 0.160 H Granulocytes # Neutrophils # 12.5 H Lymphocytes # 0.7 L Monocytes # 1.1 H Eosinophils # 0.2 Basophils # 0.1 Nucleated Red Blood 0.0 Cells # Sodium Level 141 Potassium Level 3.7 Chloride Level 101 Carbon Dioxide Level 26 Anion Gap 14 H Blood Urea Nitrogen 55 H Creatinine 5.04 H Est Glomerular 9 L Filtrat Rate mL/min Glucose Level 220 Calcium Level 9.6 Phosphorus Level 1.8 L Magnesium Level 2.3 Total Bilirubin 0.1 L Direct Bilirubin 0.10 Indirect Bilirubin 0.0 Aspartate Amino 67 H Transf (AST/SGOT) Alanine 45 Aminotransferase (AL T/SGPT) Alkaline Phosphatase 209 H Total Protein 6.7 Albumin 3.2 L Random Vancomycin 15.4 Level Test 12/15/18 05:51 12/15/18 07:57 12/15/18 08:03 Bedside Glucose 212 236 H Hemoglobin 9.0 L Hematocrit 29.4 L Medications Medication Current Medications Ondansetron HCl (Zofran Inj) 4 mg Q6H PRN IV NAUSEA AND/OR VOMITING; Start 12/06/18 at 09:30 Albuterol (Proventil 0.083% (Neb)) 2.5 mg Q2H RESP THERAPY PRN NEB SHORTNESS OF BREATH; Start 12/06/18 at 09:30 Docusate Sodium (Colace) 100 mg Q12H PRN PO CONSTIPATION; Start 12/06/18 at 09:30 Magnesium Hydroxide (Milk Of Mag) 30 ml DAILY PRN PO CONSTIPATION; Start 12/06/18 at 09:30 Aspirin (Aspirin) 81 mg DAILY PO Last administered on 12/15/18 08:03; Admin Dose 81 MG; Start 12/06/18 at 10:30 Brimonidine Tartrate (Alphagan 0.2%) 1 drop DAILY BOTH EYES Last administered on 12/15/18 08:06; Admin Dose 1 DROP; Start 12/06/18 at 11:00 Calcium Acetate (Phoslo) 667 mg WITH MEALS PO Last administered on 12/15/18 08:04; Admin Dose 667 MG; Start 12/06/18 at 12:00 Docusate Sodium (Colace) 200 mg DAILY PO ; Start 12/06/18 at 10:30; Status Hold Lactulose (Enulose) 20 gm BID PO Last administered on 12/15/18 08:03; Admin Dose 20 GM; Start 12/06/18 at 21:00 Montelukast Sodium (Singulair) 10 mg HS PO ; Start 12/06/18 at 21:00; Status Hold Multivit/Ca Carb/ B Cmplx/FA/Prenat (Mariaelena-Rosas) 1 tab DAILY PO Last administered on 12/15/18 08:19; Admin Dose 1 TAB; Start 12/06/18 at 10:30 Norepinephrine 250 ml @ 1.875 mls/ hr TITRATE IV Last administered on 12/07/18 13:25; Admin Dose 56.25 MLS/HR; Start 12/06/18 at 13:00 Atropine Sulfate (Atropine (Syringe)) 1 mg PRN PRN IV prn Last administered on 12/06/18 16:49; Admin Dose 1 MG; Start 12/06/18 at 16:00 Midazolam HCl 50 ml @ 1 mls/hr TITRATE IV Last administered on 12/09/18 05:09; Admin Dose 4 MLS/HR; Start 12/06/18 at 16:30 Vancomycin HCl (Vanco Iv Per Pharmacy) VANCOMYCIN PER PHARMACY PER PROTOCOL XX ; Start 12/06/18 at 17:30 Cefepime HCl 50 ml @ 100 mls/hr Q24H IVPB Last administered on 12/14/18 21:36; Admin Dose 100 MLS/HR; Start 12/06/18 at 21:00 Levetiracetam 100 ml @ 400 mls/hr Q12 IVPB Last administered on 12/15/18 08:07; Admin Dose 400 MLS/HR; Start 12/06/18 at 21:00 Dopamine HCl/ Dextrose 250 ml @ 7.613 mls/ hr TITRATE IV Last administered on 12/09/18at 03:03; Admin Dose 11.419 MLS/HR; Start 12/06/18 at 17:30 Acetaminophen (Tylenol Supp) 650 mg Q4H PRN ID TEMP > 37C; Start 12/06/18 at 18:30 Meperidine HCl (Demerol) 12.5 mg Q4H PRN IV POST OPERATIVE SHIVERING; Start 12/06/18 at 18:30 Meperidine HCl (Demerol) 25 mg Q4H PRN IV POST OPERATIVE SHIVERING; Start 12/06/18 at 18:30 Eye Lubricant (Akwa Oint) 1 applic Q6 BOTH EYES Last administered on 12/15/18at 05:52; Admin Dose 1 APPLIC; Start 12/07/18 at 00:00 Eye Lubricant (Artificial Tears Oph) 2 drop Q6 BOTH EYES Last administered on 12/15/18at 05:51; Admin Dose 2 DROP; Start 12/07/18 at 00:00 Magnesium Sulfate 50 ml @ 25 mls/hr PRN PRN IVPB IV PROTOCOL; Start 12/06/18 at 20:30 Potassium Chloride 50 ml @ 25 mls/hr PRN PRN IVPB IV PROTOCOL Last administered on 12/07/18at 08:33; Admin Dose 25 MLS/HR; Start 12/06/18 at 20:30 Heparin Sodium (Porcine) (Heparin (1000 Units/ml)) 4,000 unit AFTER DIALYSIS CATHETER ; Start 12/06/18 at 22:00 Albumin Human 100 ml @ 100 mls/hr WITH DIALYSIS PRN IV SBP <90 DURING DIALYSIS Last administered on 12/13/18at 08:56; Admin Dose 100 MLS/HR; Start 12/06/18 at 22:00 Sodium Chloride (NS) -To prime the dialy... DIRECTED FOR HD PRN IV HD; Start 12/06/18 at 22:00 Phenytoin 200 mg/ Sodium Chloride 54 ml @ 112 mls/hr AM IV Last administered on 12/15/18at 08:07; Admin Dose 112 MLS/HR; Start 12/07/18 at 09:00 Phenytoin 200 mg/ Sodium Chloride 54 ml @ 112 mls/hr PC LUNCH IV Last administered on 12/14/18 13:38; Admin Dose 112 MLS/HR; Start 12/07/18 at 12:30 Phenytoin 300 mg/ Sodium Chloride 56 ml @ 112 mls/hr 2100 IV Last administered on 12/14/18 21:35; Admin Dose 112 MLS/HR; Start 12/07/18 at 21:00 Fentanyl 100 ml @ 2.5 mls/hr TITRATE IV Last administered on 12/08/18 06:27; Admin Dose 2.5 MLS/HR; Start 12/08/18 at 06:30 Diagnostic Test (Pha) (Accu-Chek) 1 ea 02 XX Last administered on 12/13/18 01:36; Admin Dose 1 EA; Start 12/09/18 at 02:00 Miscellaneous Information 1 ea NOTE XX ; Start 12/08/18 at 11:30 Glucose (Glutose) 15 gm Q15M PRN PO DECREASED GLUCOSE; Start 12/08/18 at 11:30 Glucose (Glutose) 22.5 gm Q15M PRN PO DECREASED GLUCOSE; Start 12/08/18 at 11:30 Dextrose (D50w Syringe) 25 ml Q15M PRN IV DECREASED GLUCOSE; Start 12/08/18 at 11:30 Dextrose (D50w Syringe) 50 ml Q15M PRN IV DECREASED GLUCOSE; Start 12/08/18 at 11:30 Glucagon (Glucagen) 1 mg Q15M PRN IM DECREASED GLUCOSE; Start 12/08/18 at 11:30 Glucose (Glutose) 15 gm Q15M PRN BUCCAL DECREASED GLUCOSE; Start 12/08/18 at 11:30 Collagenase (Santyl) 1 applic DAILY TOP Last administered on 12/15/18 08:06; Admin Dose 1 APPLIC; Start 12/10/18 at 09:00 Diagnostic Test (Pha) (Accu-Chek) 1 ea Q4 XX Last administered on 12/14/18 08:21; Admin Dose 1 EA; Start 12/11/18 at 13:00 Total Parenteral Nutrition 1,000 ml @ 50 mls/hr Q20H IV Last administered on 12/12/18 18:06; Admin Dose 50 MLS/HR; Start 12/11/18 at 18:00; Status Hold Acetaminophen (Tylenol Liquid) 650 mg Q6H PRN GTB MILD PAIN(1-3)OR ELEVATED TEMP Last administered on 12/14/18 08:18; Admin Dose 650 MG; Start 12/11/18 at 20:30 Famotidine (Pepcid Iv) 20 mg Q48H IV Last administered on 12/15/18 05:54; Admin Dose 20 MG; Start 12/13/18 at 07:00 Fluconazole/ Sodium Chloride 50 ml @ 50 mls/hr Q24H IVPB Last administered on 12/14/18 14:26; Admin Dose 50 MLS/HR; Start 12/12/18 at 14:00 Insulin Aspart (Novolog Insulin Pen) NOVOLOG *MODERATE* ALGORITHM Q4 SC Last administered on 12/15/18 08:06; Admin Dose 6 UNIT; Start 12/12/18 at 13:00 Metronidazole 100 ml @ 100 mls/hr Q6 IVPB Last administered on 12/15/18 05:52; Admin Dose 100 MLS/HR; Start 12/13/18 at 12:00 Miconazole (Monistat-7) 2 supp HS VAG Last administered on 12/14/18 21:35; Admin Dose 2 SUPP; Start 12/13/18 at 21:00; Stop 12/15/18 at 21:01 Lorazepam (Ativan) 1 mg Q10MIN PRN IV SEIZURES Last administered on 12/14/18 17:16; Admin Dose 1 MG; Start 12/13/18 at 13:30 Insulin Glargine (Lantus) 25 units DAILY@0800 SC Last administered on 12/15/18 08:05; Admin Dose 25 UNITS; Start 12/15/18 at 08:00 Epoetin Man-epbx (Retacrit) 6,000 unit TuThSa@1700 SC ; Start 12/16/18 at 17:00 Vancomycin HCl 250 ml @ 125 mls/hr Q96H IVPB ; Start 12/15/18 at 18:00 LEWIS PERALES NP Dec 15, 2018 11:33
--- NOTE | 2018-12-15 11:34 | CONS ---
Assessment/Plan Assessment/Plan Assessment/Plan (Daily) 1. S/p Cardiopulmonary Arrest with ROSC, s/p Hypothermia protocol 2. ESRD on HD TTS timo at [facility] 3. acute hypoxemic respiratory failure due to cardiac arrest s/p Intubation on ventilator 4. Shock--likely cardiogenic; cannot exclude obstructive though clinical picture not consistent with massive PE. 5. Sepsis 2/2 staph bacteremia 6. HTN heart disease 7.. DM 8. severe Anemia with Hb down to 6.9- S/p 2 U PRBC on 12/12/18 Plan: pt remains intubated, Hb 9.0, BP stable, afebrile, s/p HD today 3 L removed,will keep pt on MWF schedule while being in hospital Her original schedule at [facility] unit is TTS s/p hypothermia protocol , remains intubated continue on Epogen ^6000 units SQ TIW for her anemia, Palliative care has been following to discuss goals of care will follow up Consultation Date/Type/Reason Admit Date/Time Dec 06, 2018 at 12:45 Initial Consult Date 12/06/18 Type of Consult NEPHROLOGY Requesting Provider: BOZENA PARK Date/Time of Note DATE: 12/15/18 TIME: 11:34 24 HR Interval Summary Free Text/Dictation pt remains intubated, Hb 9.0, BP stable, afebrile, s/p HD today 3 L removed, Exam/Review of Systems Exam Vitals Vital Signs Date Temp Pulse Resp B/P (MAP) Pulse Ox O2 O2 Flow FiO2 Time Delivery Rate 12/15/18 77 22 146/60 100 Mechanica 10:00 (88) l Ventilato r 12/15/18 100.0 08:00 12/15/18 30 08:00 Intake and Output 12/14/18 12/14/18 12/15/18 1515:00 23:00 07:00 IntakeIntake Total 848 ml 526 ml 310 ml OutputOutput Total 20 ml 300 ml BalanceBalance 828 ml 226 ml 310 ml Exam Constitutional: non-verbal Head: normocephalic, atraumatic Eyes: nl conjunctiva, nl lids ENMT: intubated Neck: supple, non-tender Respiratory: diminished breath sounds Cardiovascular: irregular rhythm Gastrointestinal: soft, nl liver, spleen, non-tender Extremities: 1+ pitting edema, no clubbing/no cyanosis Neurological: unresponsive Skin: nl turgor Results Result Diagram: 12/15/18 0757 12/15/18 0430 Results 24hrs Laboratory Tests Test 12/14/18 12:21 12/14/18 13:35 12/14/18 16:55 12/14/18 21:41 Phenytoin (Dilantin) 11.9 Level Bedside Glucose 257 H 242 H 204 Test 12/15/18 02:32 12/15/18 04:00 12/15/18 04:30 12/15/18 04:35 Bedside Glucose 254 H White Blood Count 14.7 #H Red Blood Count 2.95 L Hemoglobin 8.8 L Hematocrit 28.7 L Mean Corpuscular 97.3 Volume Mean Corpuscular 29.8 Hemoglobin Mean Corpuscular 30.7 L Hemoglobin Concent Red Cell 15.3 H Distribution Width Platelet Count 179 Mean Platelet Volume 10.4 Immature 1.100 H Granulocytes % Neutrophils % 85.0 H Lymphocytes % 5.0 L Monocytes % 7.2 Eosinophils % 1.4 Basophils % 0.3 Nucleated Red Blood 0.0 Cells % Immature 0.160 H Granulocytes # Neutrophils # 12.5 H Lymphocytes # 0.7 L Monocytes # 1.1 H Eosinophils # 0.2 Basophils # 0.1 Nucleated Red Blood 0.0 Cells # Sodium Level 141 Potassium Level 3.7 Chloride Level 101 Carbon Dioxide Level 26 Anion Gap 14 H Blood Urea Nitrogen 55 H Creatinine 5.04 H Est Glomerular 9 L Filtrat Rate mL/min Glucose Level 220 Calcium Level 9.6 Phosphorus Level 1.8 L Magnesium Level 2.3 Total Bilirubin 0.1 L Direct Bilirubin 0.10 Indirect Bilirubin 0.0 Aspartate Amino 67 H Transf (AST/SGOT) Alanine 45 Aminotransferase (AL T/SGPT) Alkaline Phosphatase 209 H Total Protein 6.7 Albumin 3.2 L Random Vancomycin 15.4 Level Test 12/15/18 05:51 12/15/18 07:57 12/15/18 08:03 Bedside Glucose 212 236 H Hemoglobin 9.0 L Hematocrit 29.4 L Medications Medication Current Medications Ondansetron HCl (Zofran Inj) 4 mg Q6H PRN IV NAUSEA AND/OR VOMITING; Start 12/06/18 at 09:30 Albuterol (Proventil 0.083% (Neb)) 2.5 mg Q2H RESP THERAPY PRN NEB SHORTNESS OF BREATH; Start 12/06/18 at 09:30 Docusate Sodium (Colace) 100 mg Q12H PRN PO CONSTIPATION; Start 12/06/18 at 09:30 Magnesium Hydroxide (Milk Of Mag) 30 ml DAILY PRN PO CONSTIPATION; Start 12/06/18 at 09:30 Aspirin (Aspirin) 81 mg DAILY PO Last administered on 12/15/18 08:03; Admin Dose 81 MG; Start 12/06/18 at 10:30 Brimonidine Tartrate (Alphagan 0.2%) 1 drop DAILY BOTH EYES Last administered on 12/15/18 08:06; Admin Dose 1 DROP; Start 12/06/18 at 11:00 Calcium Acetate (Phoslo) 667 mg WITH MEALS PO Last administered on 12/15/18 08:04; Admin Dose 667 MG; Start 12/06/18 at 12:00 Docusate Sodium (Colace) 200 mg DAILY PO ; Start 12/06/18 at 10:30; Status Hold Lactulose (Enulose) 20 gm BID PO Last administered on 12/15/18 08:03; Admin Dose 20 GM; Start 12/06/18 at 21:00 Montelukast Sodium (Singulair) 10 mg HS PO ; Start 12/06/18 at 21:00; Status Hold Multivit/Ca Carb/ B Cmplx/FA/Prenat (Mariaelena-Rosas) 1 tab DAILY PO Last administered on 12/15/18 08:19; Admin Dose 1 TAB; Start 12/06/18 at 10:30 Norepinephrine 250 ml @ 1.875 mls/ hr TITRATE IV Last administered on 12/07/18at 13:25; Admin Dose 56.25 MLS/HR; Start 12/06/18 at 13:00 Atropine Sulfate (Atropine (Syringe)) 1 mg PRN PRN IV prn Last administered on 12/06/18at 16:49; Admin Dose 1 MG; Start 12/06/18 at 16:00 Midazolam HCl 50 ml @ 1 mls/hr TITRATE IV Last administered on 12/09/18 05:09; Admin Dose 4 MLS/HR; Start 12/06/18 at 16:30 Vancomycin HCl (Vanco Iv Per Pharmacy) VANCOMYCIN PER PHARMACY PER PROTOCOL XX ; Start 12/06/18 at 17:30 Cefepime HCl 50 ml @ 100 mls/hr Q24H IVPB Last administered on 12/14/18at 21:36; Admin Dose 100 MLS/HR; Start 12/06/18 at 21:00 Levetiracetam 100 ml @ 400 mls/hr Q12 IVPB Last administered on 12/15/18at 08:07; Admin Dose 400 MLS/HR; Start 12/06/18 at 21:00 Dopamine HCl/ Dextrose 250 ml @ 7.613 mls/ hr TITRATE IV Last administered on 12/09/18at 03:03; Admin Dose 11.419 MLS/HR; Start 12/06/18 at 17:30 Acetaminophen (Tylenol Supp) 650 mg Q4H PRN SD TEMP > 37C; Start 12/06/18 at 18:30 Meperidine HCl (Demerol) 12.5 mg Q4H PRN IV POST OPERATIVE SHIVERING; Start 12/06/18 at 18:30 Meperidine HCl (Demerol) 25 mg Q4H PRN IV POST OPERATIVE SHIVERING; Start 12/06/18 at 18:30 Eye Lubricant (Akwa Oint) 1 applic Q6 BOTH EYES Last administered on 12/15/18 05:52; Admin Dose 1 APPLIC; Start 12/07/18 at 00:00 Eye Lubricant (Artificial Tears Oph) 2 drop Q6 BOTH EYES Last administered on 12/15/18 05:51; Admin Dose 2 DROP; Start 12/07/18 at 00:00 Magnesium Sulfate 50 ml @ 25 mls/hr PRN PRN IVPB IV PROTOCOL; Start 12/06/18 at 20:30 Potassium Chloride 50 ml @ 25 mls/hr PRN PRN IVPB IV PROTOCOL Last administered on 12/07/18at 08:33; Admin Dose 25 MLS/HR; Start 12/06/18 at 20:30 Heparin Sodium (Porcine) (Heparin (1000 Units/ml)) 4,000 unit AFTER DIALYSIS CATHETER ; Start 12/06/18 at 22:00 Albumin Human 100 ml @ 100 mls/hr WITH DIALYSIS PRN IV SBP <90 DURING DIALYSIS Last administered on 12/13/18at 08:56; Admin Dose 100 MLS/HR; Start 12/06/18 at 22:00 Sodium Chloride (NS) -To prime the dialy... DIRECTED FOR HD PRN IV HD; Start 12/06/18 at 22:00 Phenytoin 200 mg/ Sodium Chloride 54 ml @ 112 mls/hr AM IV Last administered on 12/15/18at 08:07; Admin Dose 112 MLS/HR; Start 12/07/18 at 09:00 Phenytoin 200 mg/ Sodium Chloride 54 ml @ 112 mls/hr PC LUNCH IV Last administered on 12/14/18at 13:38; Admin Dose 112 MLS/HR; Start 12/07/18 at 12:30 Phenytoin 300 mg/ Sodium Chloride 56 ml @ 112 mls/hr 2100 IV Last administered on 12/14/18at 21:35; Admin Dose 112 MLS/HR; Start 12/07/18 at 21:00 Fentanyl 100 ml @ 2.5 mls/hr TITRATE IV Last administered on 12/08/18at 06:27; Admin Dose 2.5 MLS/HR; Start 12/08/18 at 06:30 Diagnostic Test (Pha) (Accu-Chek) 1 ea 02 XX Last administered on 12/13/18at 01:36; Admin Dose 1 EA; Start 12/09/18 at 02:00 Miscellaneous Information 1 ea NOTE XX ; Start 12/08/18 at 11:30 Glucose (Glutose) 15 gm Q15M PRN PO DECREASED GLUCOSE; Start 12/08/18 at 11:30 Glucose (Glutose) 22.5 gm Q15M PRN PO DECREASED GLUCOSE; Start 12/08/18 at 11:30 Dextrose (D50w Syringe) 25 ml Q15M PRN IV DECREASED GLUCOSE; Start 12/08/18 at 11:30 Dextrose (D50w Syringe) 50 ml Q15M PRN IV DECREASED GLUCOSE; Start 12/08/18 at 11:30 Glucagon (Glucagen) 1 mg Q15M PRN IM DECREASED GLUCOSE; Start 12/08/18 at 11:30 Glucose (Glutose) 15 gm Q15M PRN BUCCAL DECREASED GLUCOSE; Start 12/08/18 at 11:30 Collagenase (Santyl) 1 applic DAILY TOP Last administered on 12/15/18at 08:06; Admin Dose 1 APPLIC; Start 12/10/18 at 09:00 Diagnostic Test (Pha) (Accu-Chek) 1 ea Q4 XX Last administered on 12/14/18 08:21; Admin Dose 1 EA; Start 12/11/18 at 13:00 Total Parenteral Nutrition 1,000 ml @ 50 mls/hr Q20H IV Last administered on 12/12/18 18:06; Admin Dose 50 MLS/HR; Start 12/11/18 at 18:00; Status Hold Acetaminophen (Tylenol Liquid) 650 mg Q6H PRN GTB MILD PAIN(1-3)OR ELEVATED TEMP Last administered on 12/14/18 08:18; Admin Dose 650 MG; Start 12/11/18 at 20:30 Famotidine (Pepcid Iv) 20 mg Q48H IV Last administered on 12/15/18 05:54; Admin Dose 20 MG; Start 12/13/18 at 07:00 Fluconazole/ Sodium Chloride 50 ml @ 50 mls/hr Q24H IVPB Last administered on 12/14/18 14:26; Admin Dose 50 MLS/HR; Start 12/12/18 at 14:00 Insulin Aspart (Novolog Insulin Pen) NOVOLOG *MODERATE* ALGORITHM Q4 SC Last administered on 12/15/18 08:06; Admin Dose 6 UNIT; Start 12/12/18 at 13:00 Metronidazole 100 ml @ 100 mls/hr Q6 IVPB Last administered on 12/15/18 05:52; Admin Dose 100 MLS/HR; Start 12/13/18 at 12:00 Miconazole (Monistat-7) 2 supp HS VAG Last administered on 12/14/18 21:35; Admin Dose 2 SUPP; Start 12/13/18 at 21:00; Stop 12/15/18 at 21:01 Lorazepam (Ativan) 1 mg Q10MIN PRN IV SEIZURES Last administered on 12/14/18 17:16; Admin Dose 1 MG; Start 12/13/18 at 13:30 Insulin Glargine (Lantus) 25 units DAILY@0800 SC Last administered on 12/15/18 08:05; Admin Dose 25 UNITS; Start 12/15/18 at 08:00 Epoetin Man-epbx (Retacrit) 6,000 unit TuThSa@1700 SC ; Start 12/16/18 at 17:00 Vancomycin HCl 250 ml @ 125 mls/hr Q96H IVPB ; Start 12/15/18 at 18:00 LAZ MELGAR MD Dec 15, 2018 11:34
--- NOTE | 2018-12-15 13:40 | CONS ---
Assessment/Plan Assessment/Plan Hospital Course (Demo Recall) s/p cardiac arrest:First event was torsades in setting of prolonged QT caused by amiodarone. Subsequent PEA events. Trops negative and no ischemic EKG changes. Had a bradycardic arrest as well which may have been metabolic or related to lidocaine. No further arrhythmias and seems to be stabilizing. EF is 35% and there is significant RV dysfunction and likely underlying severe pulm HTN which cannot be assessed accurately by echo. If she recovers she will need a cardiac cath for evaluation. Staph aureus bacteremia so may all have been sepsis related Shock: Septic with bacteremia. Off pressors Staph aureus bacteremia: ?from decubs. Repeatcultures negative Torsades: due to amiodarone induced prolonged QTc. Now resolved Prolonged QT: due to amiodarone. Improved Cardiomyopathy: EF 35% RV dysfunction: doubt acute PE but maybe long standing pulm HTN NSVT: Unfortunately the tele bed in the ER that she was in did not record arrhythmias. Per ER MD she had 10-12 beats runs. Acute on chronic systolic CHF: EF 35%. Decompensated on exam HTN : BP initially recorded in the 120s, then >200. Now off dopamine ?Paroxysmal afib: Coumadin is on her med list but INR was normal on admission. With h/o stroke, presumably she had afib in the past. ESRD on HD DM CVA with left weakness -restart coreg if hemodynamics remain stable -HD per nephrology Consultation Date/Type/Reason Admit Date/Time Dec 06, 2018 at 12:45 Initial Consult Date 12/06/18 Type of Consult Cardiology Requesting Provider: BOZENA PARK Date/Time of Note DATE: 12/15/18 TIME: 13:38 24 HR Interval Summary Free Text/Dictation No events. Receiving HD. Exam/Review of Systems Vital Signs Vitals Vital Signs Date Temp Pulse Resp B/P (MAP) Pulse Ox O2 O2 Flow FiO2 Time Delivery Rate 12/15/18 77 13:10 12/15/18 21 111/54 100 Mechanica 13:00 (73) l Ventilato r 12/15/18 100.0 12:00 12/15/18 30 11:05 Intake and Output 12/14/18 12/14/18 12/15/18 1515:00 23:00 07:00 IntakeIntake Total 848 ml 526 ml 400 ml OutputOutput Total 20 ml 300 ml BalanceBalance 828 ml 226 ml 400 ml Exam Constitutional: No alert, No oriented ENMT: intubated Neck: supple; No jvd (unable to assess) Respiratory: No clear to auscultation, No crackles/rales Cardiovascular: regular rate and rhythm; No edema Gastrointestinal: soft; No distended Neurological: No nl mental status, No nl speech Labs Result Diagram: 12/15/18 0757 12/15/18 0430 Results 24hrs Laboratory Tests Test 12/14/18 16:55 12/14/18 21:41 12/15/18 02:32 12/15/18 04:00 Bedside Glucose 242 H 204 254 H White Blood Count 14.7 #H Red Blood Count 2.95 L Hemoglobin 8.8 L Hematocrit 28.7 L Mean Corpuscular 97.3 Volume Mean Corpuscular 29.8 Hemoglobin Mean Corpuscular 30.7 L Hemoglobin Concent Red Cell 15.3 H Distribution Width Platelet Count 179 Mean Platelet Volume 10.4 Immature 1.100 H Granulocytes % Neutrophils % 85.0 H Lymphocytes % 5.0 L Monocytes % 7.2 Eosinophils % 1.4 Basophils % 0.3 Nucleated Red Blood 0.0 Cells % Immature 0.160 H Granulocytes # Neutrophils # 12.5 H Lymphocytes # 0.7 L Monocytes # 1.1 H Eosinophils # 0.2 Basophils # 0.1 Nucleated Red Blood 0.0 Cells # Test 12/15/18 04:30 12/15/18 04:35 12/15/18 05:51 12/15/18 07:57 Sodium Level 141 Potassium Level 3.7 Chloride Level 101 Carbon Dioxide Level 26 Anion Gap 14 H Blood Urea Nitrogen 55 H Creatinine 5.04 H Est Glomerular 9 L Filtrat Rate mL/min Glucose Level 220 Calcium Level 9.6 Phosphorus Level 1.8 L Magnesium Level 2.3 Total Bilirubin 0.1 L Direct Bilirubin 0.10 Indirect Bilirubin 0.0 Aspartate Amino 67 H Transf (AST/SGOT) Alanine 45 Aminotransferase (AL T/SGPT) Alkaline Phosphatase 209 H Total Protein 6.7 Albumin 3.2 L Random Vancomycin 15.4 Level Bedside Glucose 212 Hemoglobin 9.0 L Hematocrit 29.4 L Test 12/15/18 08:03 12/15/18 12:16 Bedside Glucose 236 H 170 Medications Medications Current Medications Ondansetron HCl (Zofran Inj) 4 mg Q6H PRN IV NAUSEA AND/OR VOMITING; Start 12/06/18 at 09:30 Albuterol (Proventil 0.083% (Neb)) 2.5 mg Q2H RESP THERAPY PRN NEB SHORTNESS OF BREATH; Start 12/06/18 at 09:30 Docusate Sodium (Colace) 100 mg Q12H PRN PO CONSTIPATION; Start 12/06/18 at 09:30 Magnesium Hydroxide (Milk Of Mag) 30 ml DAILY PRN PO CONSTIPATION; Start 12/06/18 at 09:30 Aspirin (Aspirin) 81 mg DAILY PO Last administered on 12/15/18 08:03; Admin Dose 81 MG; Start 12/06/18 at 10:30 Brimonidine Tartrate (Alphagan 0.2%) 1 drop DAILY BOTH EYES Last administered on 12/15/18 08:06; Admin Dose 1 DROP; Start 12/06/18 at 11:00 Calcium Acetate (Phoslo) 667 mg WITH MEALS PO Last administered on 12/15/18 12:19; Admin Dose 667 MG; Start 12/06/18 at 12:00 Docusate Sodium (Colace) 200 mg DAILY PO ; Start 12/06/18 at 10:30; Status Hold Lactulose (Enulose) 20 gm BID PO Last administered on 12/15/18 08:03; Admin Dose 20 GM; Start 12/06/18 at 21:00 Montelukast Sodium (Singulair) 10 mg HS PO ; Start 12/06/18 at 21:00; Status Hold Multivit/Ca Carb/ B Cmplx/FA/Prenat (Mariaelena-Rosas) 1 tab DAILY PO Last administered on 12/15/18 08:19; Admin Dose 1 TAB; Start 12/06/18 at 10:30 Norepinephrine 250 ml @ 1.875 mls/ hr TITRATE IV Last administered on 12/07/18 13:25; Admin Dose 56.25 MLS/HR; Start 12/06/18 at 13:00 Atropine Sulfate (Atropine (Syringe)) 1 mg PRN PRN IV prn Last administered on 12/06/18at 16:49; Admin Dose 1 MG; Start 12/06/18 at 16:00 Midazolam HCl 50 ml @ 1 mls/hr TITRATE IV Last administered on 12/09/18at 05:09; Admin Dose 4 MLS/HR; Start 12/06/18 at 16:30 Vancomycin HCl (Vanco Iv Per Pharmacy) VANCOMYCIN PER PHARMACY PER PROTOCOL XX ; Start 12/06/18 at 17:30 Cefepime HCl 50 ml @ 100 mls/hr Q24H IVPB Last administered on 12/14/18at 21 :36; Admin Dose 100 MLS/HR; Start 12/06/18 at 21:00 Levetiracetam 100 ml @ 400 mls/hr Q12 IVPB Last administered on 12/15/18at 08:07; Admin Dose 400 MLS/HR; Start 12/06/18 at 21:00 Dopamine HCl/ Dextrose 250 ml @ 7.613 mls/ hr TITRATE IV Last administered on 12/09/18at 03:03; Admin Dose 11.419 MLS/HR; Start 12/06/18 at 17:30 Acetaminophen (Tylenol Supp) 650 mg Q4H PRN [place] TEMP > 37C; Start 12/06/18 at 18:30 Meperidine HCl (Demerol) 12.5 mg Q4H PRN IV POST OPERATIVE SHIVERING; Start 12/06/18 at 18:30 Meperidine HCl (Demerol) 25 mg Q4H PRN IV POST OPERATIVE SHIVERING; Start 12/06/18 at 18:30 Eye Lubricant (Akwa Oint) 1 applic Q6 BOTH EYES Last administered on 12/15/18at 12:19; Admin Dose 1 APPLIC; Start 12/07/18 at 00:00 Eye Lubricant (Artificial Tears Oph) 2 drop Q6 BOTH EYES Last administered on 12/15/18at 12:19; Admin Dose 2 DROP; Start 12/07/18 at 00:00 Magnesium Sulfate 50 ml @ 25 mls/hr PRN PRN IVPB IV PROTOCOL; Start 12/06/18 at 20:30 Potassium Chloride 50 ml @ 25 mls/hr PRN PRN IVPB IV PROTOCOL Last administered on 12/07/18at 08:33; Admin Dose 25 MLS/HR; Start 12/06/18 at 20:30 Heparin Sodium (Porcine) (Heparin (1000 Units/ml)) 4,000 unit AFTER DIALYSIS CATHETER ; Start 12/06/18 at 22:00 Albumin Human 100 ml @ 100 mls/hr WITH DIALYSIS PRN IV SBP <90 DURING DIALYSIS Last administered on 12/13/18at 08:56; Admin Dose 100 MLS/HR; Start 12/06/18 at 22:00 Sodium Chloride (NS) -To prime the dialy... DIRECTED FOR HD PRN IV HD; Start 12/06/18 at 22:00 Phenytoin 200 mg/ Sodium Chloride 54 ml @ 112 mls/hr AM IV Last administered on 12/15/18at 08:07; Admin Dose 112 MLS/HR; Start 12/07/18 at 09:00 Phenytoin 200 mg/ Sodium Chloride 54 ml @ 112 mls/hr PC LUNCH IV Last administered on 12/14/18at 13:38; Admin Dose 112 MLS/HR; Start 12/07/18 at 12:30 Phenytoin 300 mg/ Sodium Chloride 56 ml @ 112 mls/hr 2100 IV Last administered on 12/14/18at 21:35; Admin Dose 112 MLS/HR; Start 12/07/18 at 21:00 Fentanyl 100 ml @ 2.5 mls/hr TITRATE IV Last administered on 12/08/18at 06:27; Admin Dose 2.5 MLS/HR; Start 12/08/18 at 06:30 Diagnostic Test (Pha) (Accu-Chek) 1 ea 02 XX Last administered on 12/13/18at 01:36; Admin Dose 1 EA; Start 12/09/18 at 02:00 Miscellaneous Information 1 ea NOTE XX ; Start 12/08/18 at 11:30 Glucose (Glutose) 15 gm Q15M PRN PO DECREASED GLUCOSE; Start 12/08/18 at 11:30 Glucose (Glutose) 22.5 gm Q15M PRN PO DECREASED GLUCOSE; Start 12/08/18 at 11:30 Dextrose (D50w Syringe) 25 ml Q15M PRN IV DECREASED GLUCOSE; Start 12/08/18 at 11:30 Dextrose (D50w Syringe) 50 ml Q15M PRN IV DECREASED GLUCOSE; Start 12/08/18 at 11:30 Glucagon (Glucagen) 1 mg Q15M PRN IM DECREASED GLUCOSE; Start 12/08/18 at 11:30 Glucose (Glutose) 15 gm Q15M PRN BUCCAL DECREASED GLUCOSE; Start 12/08/18 at 11:30 Collagenase (Santyl) 1 applic DAILY TOP Last administered on 12/15/18 08:06; Admin Dose 1 APPLIC; Start 12/10/18 at 09:00 Diagnostic Test (Pha) (Accu-Chek) 1 ea Q4 XX Last administered on 12/14/18 08:21; Admin Dose 1 EA; Start 12/11/18 at 13:00 Total Parenteral Nutrition 1,000 ml @ 50 mls/hr Q20H IV Last administered on 12/12/18 18:06; Admin Dose 50 MLS/HR; Start 12/11/18 at 18:00; Status Hold Acetaminophen (Tylenol Liquid) 650 mg Q6H PRN GTB MILD PAIN(1-3)OR ELEVATED TEMP Last administered on 12/14/18 08:18; Admin Dose 650 MG; Start 12/11/18 at 20:30 Famotidine (Pepcid Iv) 20 mg Q48H IV Last administered on 12/15/18 05:54; Admin Dose 20 MG; Start 12/13/18 at 07:00 Fluconazole/ Sodium Chloride 50 ml @ 50 mls/hr Q24H IVPB Last administered on 12/14/18 14:26; Admin Dose 50 MLS/HR; Start 12/12/18 at 14:00 Insulin Aspart (Novolog Insulin Pen) NOVOLOG *MODERATE* ALGORITHM Q4 SC Last administered on 12/15/18 12:20; Admin Dose 2 UNIT; Start 12/12/18 at 13:00 Metronidazole 100 ml @ 100 mls/hr Q6 IVPB Last administered on 12/15/18 05:52; Admin Dose 100 MLS/HR; Start 12/13/18 at 12:00 Miconazole (Monistat-7) 2 supp HS VAG Last administered on 12/14/18 21:35; Admin Dose 2 SUPP; Start 12/13/18 at 21:00; Stop 12/15/18 at 21:01 Lorazepam (Ativan) 1 mg Q10MIN PRN IV SEIZURES Last administered on 12/14/18 17:16; Admin Dose 1 MG; Start 12/13/18 at 13:30 Insulin Glargine (Lantus) 25 units DAILY@0800 SC Last administered on 12/15/18 08:05; Admin Dose 25 UNITS; Start 12/15/18 at 08:00 Epoetin Man-epbx (Retacrit) 6,000 unit TuThSa@1700 SC ; Start 12/16/18 at 17:00 Vancomycin HCl 250 ml @ 125 mls/hr Q96H IVPB ; Start 12/15/18 at 18:00 JJ BRANCH Dec 15, 2018 13:40
--- NOTE | 2018-12-15 13:49 | CONS ---
Assessment/Plan Assessment/Plan Assessment/Plan (Daily) Status post cardiac arrest with ROS see Staph bacteremia Thrombocytopenia Chronic Arrhythmia and SVT Hypotension End-stage renal disease on hemodialysis History of CVA IMPRESSION: 1. Diffuse interstitial and patchy airspace opacities most prominent in the right lower lung along with a small right pleural effusion. These findings may represent pulmonary edema or multifocal infection. 2. Prominent cardiomediastinal contour may relate to the portable AP technique. This can be further evaluated with PA and lateral view of the chest when feasible. CT of the chest with intravenous contrast could also be performed if there is clinical concern for mediastinal widening. Family conference was scheduled for December 13 at 10:00. No family members arrived until 1230 at the time I was no longer available I will ask social work service to try and schedule a family conference once again. Consultation Date/Type/Reason Admit Date/Time Dec 06, 2018 at 12:45 Date/Time of Note DATE: 12/15/18 TIME: 13:49 Subjective hx not possible: pt critical Past Medical History Medical History: other (ESRD on HD for the past 8 years, Diabetes Mellitus, HTN, CVA with L sided residual weakness and ? afib on Coumadin ) Home Meds Reported Medications Insulin Lispro (Humalog) 100 U/Ml Vial, SQ SSI TID AND HS PRN 09/12/11 Multivit/Ca Carb/B Cmplx/Fa* (Mariaelena-Rosas*) 1 Tab Tab, 1 TAB PO DAILY 09/12/11 [Prostat 64] No Conflict Check, 30 ML PO TID 09/12/11 Esomeprazole Mag Trihydrate (Nexium) 40 Mg Capsule.dr, 40 MG PO DAILY 09/12/11 Metoprolol (Lopressor) 100 Mg Tablet, 100 MG PO BID 09/12/11 Benazepril Hcl* (Lotensin*) 40 Mg Tablet, 40 MG PO DAILY 09/12/11 [Lactulose] No Conflict Check, 30 ML PO DAILY PRN 09/12/11 Lactulose (Lactulose) 10 G/15 Ml Solution, 20 G PO BID 09/12/11 Glipizide* (Glucotrol XL*) 2.5 Mg Tabsr, 2.5 MG PO DAILY 09/12/11 Phenytoin* Sodium Extended (Dilantin*) 100 Mg Capsule, 300 MG PO HS 09/12/11 Phenytoin* Sodium Extended (Dilantin*) 100 Mg Capsule, 200 MG PO DAILY @0900 09/12/11 Phenytoin* Sodium Extended (Dilantin*) 100 Mg Capsule, 200 MG PO DAILY @1300 09/12/11 Phenytoin* Sodium Extended (Dilantin*) 100 Mg Capsule, 200 MG PO DAILY 09/12/11 Docusate Sodium* (Colace*) 100 Mg Capsule, 200 MG PO DAILY 09/12/11 Warfarin Sodium* (Coumadin*) 7.5 Mg Tablet, 7.5 MG PO Q OTHER DAY 06/01/11 Montelukast Sodium* (Singulair*) 10 Mg Tablet, 10 MG PO HS 06/01/11 Folic Acid/Vitamin B Comp W-C* (Nephro-Rosas Tablet*) 0.8 Mg Tablet, 0.8 MG PO DAILY 06/01/11 Aspirin (Aspirin) 81 Mg Tablet, 81 MG PO DAILY 06/01/11 Levetiracetam* (Keppra*) 500 Mg Tablet, 500 MG PO BID 06/01/11 Clonidine Hcl* (Clonidine Hcl*) 0.2 Mg Tablet 01/09/11 Metoclopramide Hcl* (Metoclopramide Hcl*) 10 Mg Tablet 01/09/11 Brimonidine Tartrate* (Brimonidine Tartrate*) 15 Ml Drops 01/09/11 Prednisolone Acetate (Pred Forte) 5 Ml Drops.susp 01/09/11 Nifedipine (Nifedical XL*) 30 Mg/Bottle Tab.osm.24 01/09/11 Calcium Acetate* (Phoslo*) 667 Mg Tablet 10/24/09 Medications Current Medications Ondansetron HCl (Zofran Inj) 4 mg Q6H PRN IV NAUSEA AND/OR VOMITING; Start 12/06/18 at 09:30 Albuterol (Proventil 0.083% (Neb)) 2.5 mg Q2H RESP THERAPY PRN NEB SHORTNESS OF BREATH; Start 12/06/18 at 09:30 Docusate Sodium (Colace) 100 mg Q12H PRN PO CONSTIPATION; Start 12/06/18 at 09:30 Magnesium Hydroxide (Milk Of Mag) 30 ml DAILY PRN PO CONSTIPATION; Start 12/06/18 at 09:30 Aspirin (Aspirin) 81 mg DAILY PO Last administered on 12/15/18at 08:03; Admin Dose 81 MG; Start 12/06/18 at 10:30 Brimonidine Tartrate (Alphagan 0.2%) 1 drop DAILY BOTH EYES Last administered on 12/15/18 08:06; Admin Dose 1 DROP; Start 12/06/18 at 11:00 Calcium Acetate (Phoslo) 667 mg WITH MEALS PO Last administered on 12/15/18 12:19; Admin Dose 667 MG; Start 12/06/18 at 12:00 Docusate Sodium (Colace) 200 mg DAILY PO ; Start 12/06/18 at 10:30; Status Hold Lactulose (Enulose) 20 gm BID PO Last administered on 12/15/18 08:03; Admin Dose 20 GM; Start 12/06/18 at 21:00 Montelukast Sodium (Singulair) 10 mg HS PO ; Start 12/06/18 at 21:00; Status H old Multivit/Ca Carb/ B Cmplx/FA/Prenat (Mariaelena-Rosas) 1 tab DAILY PO Last administered on 12/15/18 08:19; Admin Dose 1 TAB; Start 12/06/18 at 10:30 Norepinephrine 250 ml @ 1.875 mls/ hr TITRATE IV Last administered on 12/07/18 13:25; Admin Dose 56.25 MLS/HR; Start 12/06/18 at 13:00 Atropine Sulfate (Atropine (Syringe)) 1 mg PRN PRN IV prn Last administered on 12/06/18 16:49; Admin Dose 1 MG; Start 12/06/18 at 16:00 Midazolam HCl 50 ml @ 1 mls/hr TITRATE IV Last administered on 12/09/18at 05:09; Admin Dose 4 MLS/HR; Start 12/06/18 at 16:30 Vancomycin HCl (Vanco Iv Per Pharmacy) VANCOMYCIN PER PHARMACY PER PROTOCOL XX ; Start 12/06/18 at 17:30 Cefepime HCl 50 ml @ 100 mls/hr Q24H IVPB Last administered on 12/14/18 21:36; Admin Dose 100 MLS/HR; Start 12/06/18 at 21:00 Levetiracetam 100 ml @ 400 mls/hr Q12 IVPB Last administered on 12/15/18 08:07; Admin Dose 400 MLS/HR; Start 12/06/18 at 21:00 Dopamine HCl/ Dextrose 250 ml @ 7.613 mls/ hr TITRATE IV Last administered on 12/09/18at 03:03; Admin Dose 11.419 MLS/HR; Start 12/06/18 at 17:30 Acetaminophen (Tylenol Supp) 650 mg Q4H PRN ND TEMP > 37C; Start 12/06/18 at 18:30 Meperidine HCl (Demerol) 12.5 mg Q4H PRN IV POST OPERATIVE SHIVERING; Start 12/06/18 at 18:30 Meperidine HCl (Demerol) 25 mg Q4H PRN IV POST OPERATIVE SHIVERING; Start 12/06/18 at 18:30 Eye Lubricant (Akwa Oint) 1 applic Q6 BOTH EYES Last administered on 12/15/18 12:19; Admin Dose 1 APPLIC; Start 12/07/18 at 00:00 Eye Lubricant (Artificial Tears Oph) 2 drop Q6 BOTH EYES Last administered on 12/15/18 12:19; Admin Dose 2 DROP; Start 12/07/18 at 00:00 Magnesium Sulfate 50 ml @ 25 mls/hr PRN PRN IVPB IV PROTOCOL; Start 12/06/18 at 20:30 Potassium Chloride 50 ml @ 25 mls/hr PRN PRN IVPB IV PROTOCOL Last administered on 12/07/18at 08:33; Admin Dose 25 MLS/HR; Start 12/06/18 at 20:30 Heparin Sodium (Porcine) (Heparin (1000 Units/ml)) 4,000 unit AFTER DIALYSIS CATHETER ; Start 12/06/18 at 22:00 Albumin Human 100 ml @ 100 mls/hr WITH DIALYSIS PRN IV SBP <90 DURING DIALYSIS Last administered on 12/13/18at 08:56; Admin Dose 100 MLS/HR; Start 12/06/18 at 22:00 Sodium Chloride (NS) -To prime the dialy... DIRECTED FOR HD PRN IV HD; Start 12/06/18 at 22:00 Phenytoin 200 mg/ Sodium Chloride 54 ml @ 112 mls/hr AM IV Last administered on 12/15/18at 08:07; Admin Dose 112 MLS/HR; Start 12/07/18 at 09:00 Phenytoin 200 mg/ Sodium Chloride 54 ml @ 112 mls/hr PC LUNCH IV Last administered on 12/14/18at 13:38; Admin Dose 112 MLS/HR; Start 12/07/18 at 12:30 Phenytoin 300 mg/ Sodium Chloride 56 ml @ 112 mls/hr 2100 IV Last administered on 12/14/18at 21:35; Admin Dose 112 MLS/HR; Start 12/07/18 at 21:00 Fentanyl 100 ml @ 2.5 mls/hr TITRATE IV Last administered on 12/08/18at 06:27; Admin Dose 2.5 MLS/HR; Start 12/08/18 at 06:30 Diagnostic Test (Pha) (Accu-Chek) 1 ea 02 XX Last administered on 12/13/18at 01:36; Admin Dose 1 EA; Start 12/09/18 at 02:00 Miscellaneous Information 1 ea NOTE XX ; Start 12/08/18 at 11:30 Glucose (Glutose) 15 gm Q15M PRN PO DECREASED GLUCOSE; Start 12/08/18 at 11:30 Glucose (Glutose) 22.5 gm Q15M PRN PO DECREASED GLUCOSE; Start 12/08/18 at 11:30 Dextrose (D50w Syringe) 25 ml Q15M PRN IV DECREASED GLUCOSE; Start 12/08/18 at 11:30 Dextrose (D50w Syringe) 50 ml Q15M PRN IV DECREASED GLUCOSE; Start 12/08/18 at 11:30 Glucagon (Glucagen) 1 mg Q15M PRN IM DECREASED GLUCOSE; Start 12/08/18 at 11:30 Glucose (Glutose) 15 gm Q15M PRN BUCCAL DECREASED GLUCOSE; Start 12/08/18 at 11:30 Collagenase (Santyl) 1 applic DAILY TOP Last administered on 12/15/18at 08:06; Admin Dose 1 APPLIC; Start 12/10/18 at 09:00 Diagnostic Test (Pha) (Accu-Chek) 1 ea Q4 XX Last administered on 12/14/18at 08:21; Admin Dose 1 EA; Start 12/11/18 at 13:00 Total Parenteral Nutrition 1,000 ml @ 50 mls/hr Q20H IV Last administered on 12/12/18at 18:06; Admin Dose 50 MLS/HR; Start 12/11/18 at 18:00; Status Hold Acetaminophen (Tylenol Liquid) 650 mg Q6H PRN GTB MILD PAIN(1-3)OR ELEVATED TEMP Last administered on 12/14/18 08:18; Admin Dose 650 MG; Start 12/11/18 at 20:30 Famotidine (Pepcid Iv) 20 mg Q48H IV Last administered on 12/15/18 05:54; Admin Dose 20 MG; Start 12/13/18 at 07:00 Fluconazole/ Sodium Chloride 50 ml @ 50 mls/hr Q24H IVPB Last administered on 12/14/18 14:26; Admin Dose 50 MLS/HR; Start 12/12/18 at 14:00 Insulin Aspart (Novolog Insulin Pen) NOVOLOG *MODERATE* ALGORITHM Q4 SC Last administered on 12/15/18 12:20; Admin Dose 2 UNIT; Start 12/12/18 at 13:00 Metronidazole 100 ml @ 100 mls/hr Q6 IVPB Last administered on 12/15/18at 0 5:52; Admin Dose 100 MLS/HR; Start 12/13/18 at 12:00 Miconazole (Monistat-7) 2 supp HS VAG Last administered on 12/14/18 21:35; Admin Dose 2 SUPP; Start 12/13/18 at 21:00; Stop 12/15/18 at 21:01 Lorazepam (Ativan) 1 mg Q10MIN PRN IV SEIZURES Last administered on 12/14/18 17:16; Admin Dose 1 MG; Start 12/13/18 at 13:30 Insulin Glargine (Lantus) 25 units DAILY@0800 SC Last administered on 12/15/18 08:05; Admin Dose 25 UNITS; Start 12/15/18 at 08:00 Epoetin Man-epbx (Retacrit) 6,000 unit TuThSa@1700 SC ; Start 12/16/18 at 17:00 Vancomycin HCl 250 ml @ 125 mls/hr Q96H IVPB ; Start 12/15/18 at 18:00 Allergies: Coded Allergies: No Known Allergy (Verified , 12/13/18) Past Surgical History Past Surgical Hx: other (fistula placement, C section) Social History Alcohol Use: none Smoking Status: Never smoker Drug Use: none Exam/Review of Systems Exam Vitals Vital Signs Date Temp Pulse Resp B/P (MAP) Pulse Ox O2 O2 Flow FiO2 Time Delivery Rate 12/15/18 77 13:10 12/15/18 21 111/54 100 [place] 13:00 (73) l Ventilato r 12/15/18 100.0 12:00 12/15/18 30 11:05 Intake and Output 12/14/18 12/14/18 12/15/18 1515:00 23:00 07:00 IntakeIntake Total 848 ml 526 ml 400 ml OutputOutput Total 20 ml 300 ml BalanceBalance 828 ml 226 ml 400 ml Constitutional: other Head: normocephalic, atraumatic; No lacerations, No hematomas, No other Respiratory: clear to auscultation, normal air movement; No congested cough, No crackles/rales, No diminished breath sounds, No i ntercostal retraction, No labored breathing, No respirations, No tactile fremitus, No wheezing, No other Cardiovascular: regular rate and rhythm, nl pulses; No bruits, No diastolic murmur, No edema, No gallop, No irregular rhythm, No jugular venous distention (JVD), No murmurs/extra sounds, No rub, No systolic murmur, No S3, No S4, No other Extremities: other (Nonresponsive to any verbal or tactile stimulation) Results Result Diagram: 12/15/18 0757 12/15/18 0430 Results 24hrs Laboratory Tests Test 12/14/18 16:55 12/14/18 21:41 12/15/18 02:32 12/15/18 04:00 Bedside Glucose 242 H 204 254 H White Blood Count 14.7 #H Red Blood Count 2.95 L Hemoglobin 8.8 L Hematocrit 28.7 L Mean Corpuscular 97.3 Volume Mean Corpuscular 29.8 Hemoglobin Mean Corpuscular 30.7 L Hemoglobin Concent Red Cell 15.3 H Distribution Width Platelet Count 179 Mean Platelet Volume 10.4 Immature 1.100 H Granulocytes % Neutrophils % 85.0 H Lymphocytes % 5.0 L Monocytes % 7.2 Eosinophils % 1.4 Basophils % 0.3 Nucleated Red Blood 0.0 Cells % Immature 0.160 H Granulocytes # Neutrophils # 12.5 H Lymphocytes # 0.7 L Monocytes # 1.1 H Eosinophils # 0.2 Basophils # 0.1 Nucleated Red Blood 0.0 Cells # Test 12/15/18 04:30 12/15/18 04:35 12/15/18 05:51 12/15/18 07:57 Sodium Level 141 Potassium Level 3.7 Chloride Level 101 Carbon Dioxide Level 26 Anion Gap 14 H Blood Urea Nitrogen 55 H Creatinine 5.04 H Est Glomerular 9 L Filtrat Rate mL/min Glucose Level 220 Calcium Level 9.6 Phosphorus Level 1.8 L Magnesium Level 2.3 Total Bilirubin 0.1 L Direct Bilirubin 0.10 Indirect Bilirubin 0.0 Aspartate Amino 67 H Transf (AST/SGOT) Alanine 45 Aminotransferase (AL T/SGPT) Alkaline Phosphatase 209 H Total Protein 6.7 Albumin 3.2 L Random Vancomycin 15.4 Level Bedside Glucose 212 Hemoglobin 9.0 L Hematocrit 29.4 L Test 12/15/18 08:03 12/15/18 12:16 Bedside Glucose 236 H 170 Medications Medication Current Medications Ondansetron HCl (Zofran Inj) 4 mg Q6H PRN IV NAUSEA AND/OR VOMITING; Start 12/06/18 at 09:30 Albuterol (Proventil 0.083% (Neb)) 2.5 mg Q2H RESP THERAPY PRN NEB SHORTNESS OF BREATH; Start 12/06/18 at 09:30 Docusate Sodium (Colace) 100 mg Q12H PRN PO CONSTIPATION; Start 12/06/18 at 09:30 Magnesium Hydroxide (Milk Of Mag) 30 ml DAILY PRN PO CONSTIPATION; Start 12/06/18 at 09:30 Aspirin (Aspirin) 81 mg DAILY PO Last administered on 12/15/18at 08:03; Admin Dose 81 MG; Start 12/06/18 at 10:30 Brimonidine Tartrate (Alphagan 0.2%) 1 drop DAILY BOTH EYES Last administered on 12/15/18at 08:06; Admin Dose 1 DROP; Start 12/06/18 at 11:00 Calcium Acetate (Phoslo) 667 mg WITH MEALS PO Last administered on 12/15/18at 12:19; Admin Dose 667 MG; Start 12/06/18 at 12:00 Docusate Sodium (Colace) 200 mg DAILY PO ; Start 12/06/18 at 10:30; Status Hold Lactulose (Enulose) 20 gm BID PO Last administered on 12/15/18at 08:03; Admin Dose 20 GM; Start 12/06/18 at 21:00 Montelukast Sodium (Singulair) 10 mg HS PO ; Start 12/06/18 at 21:00; Status Hold Multivit/Ca Carb/ B Cmplx/FA/Prenat (Mariaelena-Rosas) 1 tab DAILY PO Last adm inistered on 12/15/18 08:19; Admin Dose 1 TAB; Start 12/06/18 at 10:30 Norepinephrine 250 ml @ 1.875 mls/ hr TITRATE IV Last administered on 12/07/18 13:25; Admin Dose 56.25 MLS/HR; Start 12/06/18 at 13:00 Atropine Sulfate (Atropine (Syringe)) 1 mg PRN PRN IV prn Last administered on 12/06/18 16:49; Admin Dose 1 MG; Start 12/06/18 at 16:00 Midazolam HCl 50 ml @ 1 mls/hr TITRATE IV Last administered on 12/09/18 05:09; Admin Dose 4 MLS/HR; Start 12/06/18 at 16:30 Vancomycin HCl (Vanco Iv Per Pharmacy) VANCOMYCIN PER PHARMACY PER PROTOCOL XX ; Start 12/06/18 at 17:30 Cefepime HCl 50 ml @ 100 mls/hr Q24H IVPB Last administered on 12/14/18at 21:36; Admin Dose 100 MLS/HR; Start 12/06/18 at 21:00 Levetiracetam 100 ml @ 400 mls/hr Q12 IVPB Last administered on 12/15/18 08:07; Admin Dose 400 MLS/HR; Start 12/06/18 at 21:00 Dopamine HCl/ Dextrose 250 ml @ 7.613 mls/ hr TITRATE IV Last administered on 12/09/18 03:03; Admin Dose 11.419 MLS/HR; Start 12/06/18 at 17:30 Acetaminophen (Tylenol Supp) 650 mg Q4H PRN ND TEMP > 37C; Start 12/06/18 at 18:30 Meperidine HCl (Demerol) 12.5 mg Q4H PRN IV POST OPERATIVE SHIVERING; Start 12/06/18 at 18:30 Meperidine HCl (Demerol) 25 mg Q4H PRN IV POST OPERATIVE SHIVERING; Start 12/06/18 at 18:30 Eye Lubricant (Akwa Oint) 1 applic Q6 BOTH EYES Last administered on 12/15/18 12:19; Admin Dose 1 APPLIC; Start 12/07/18 at 00:00 Eye Lubricant (Artificial Tears Oph) 2 drop Q6 BOTH EYES Last administered on 12/15/18 12:19; Admin Dose 2 DROP; Start 12/07/18 at 00:00 Magnesium Sulfate 50 ml @ 25 mls/hr PRN PRN IVPB IV PROTOCOL; Start 12/06/18 at 20:30 Potassium Chloride 50 ml @ 25 mls/hr PRN PRN IVPB IV PROTOCOL Last administered on 12/07/18 08:33; Admin Dose 25 MLS/HR; Start 12/06/18 at 20:30 Heparin Sodium (Porcine) (Heparin (1000 Units/ml)) 4,000 unit AFTER DIALYSIS CATHETER ; Start 12/06/18 at 22:00 Albumin Human 100 ml @ 100 mls/hr WITH DIALYSIS PRN IV SBP <90 DURING DIALYSIS Last administered on 12/13/18 08:56; Admin Dose 100 MLS/HR; Start 12/06/18 at 22:00 Sodium Chloride (NS) -To prime the dialy... DIRECTED FOR HD PRN IV HD; Start 12/06/18 at 22:00 Phenytoin 200 mg/ Sodium Chloride 54 ml @ 112 mls/hr AM IV Last administered on 12/15/18 08:07; Admin Dose 112 MLS/HR; Start 12/07/18 at 09:00 Phenytoin 200 mg/ Sodium Chloride 54 ml @ 112 mls/hr PC LUNCH IV Last administered on 12/14/18 13:38; Admin Dose 112 MLS/HR; Start 12/07/18 at 12:30 Phenytoin 300 mg/ Sodium Chloride 56 ml @ 112 mls/hr 2100 IV Last administered on 12/14/18 21:35; Admin Dose 112 MLS/HR; Start 12/07/18 at 21:00 Fentanyl 100 ml @ 2.5 mls/hr TITRATE IV Last administered on 12/08/18 06:27; Admin Dose 2.5 MLS/HR; Start 12/08/18 at 06:30 Diagnostic Test (Pha) (Accu-Chek) 1 ea 02 XX Last administered on 12/13/18 01:36; Admin Dose 1 EA; Start 12/09/18 at 02:00 Miscellaneous Information 1 ea NOTE XX ; Start 12/08/18 at 11:30 Glucose (Glutose) 15 gm Q15M PRN PO DECREASED GLUCOSE; Start 12/08/18 at 11:30 Glucose (Glutose) 22.5 gm Q15M PRN PO DECREASED GLUCOSE; Start 12/08/18 at 11:30 Dextrose (D50w Syringe) 25 ml Q15M PRN IV DECREASED GLUCOSE; Start 12/08/18 at 11:30 Dextrose (D50w Syringe) 50 ml Q15M PRN IV DECREASED GLUCOSE; Start 12/08/18 at 11:30 Glucagon (Glucagen) 1 mg Q15M PRN IM DECREASED GLUCOSE; Start 12/08/18 at 11:30 Glucose (Glutose) 15 gm Q15M PRN BUCCAL DECREASED GLUCOSE; Start 12/08/18 at 11:30 Collagenase (Santyl) 1 applic DAILY TOP Last administered on 12/15/18at 08:06; Admin Dose 1 APPLIC; Start 12/10/18 at 09:00 Diagnostic Test (Pha) (Accu-Chek) 1 ea Q4 XX Last administered on 12/14/18 08:21; Admin Dose 1 EA; Start 12/11/18 at 13:00 Total Parenteral Nutrition 1,000 ml @ 50 mls/hr Q20H IV Last administered on 12/12/18at 18:06; Admin Dose 50 MLS/HR; Start 12/11/18 at 18:00; Status Hold Acetaminophen (Tylenol Liquid) 650 mg Q6H PRN GTB MILD PAIN(1-3)OR ELEVATED TEMP Last administered on 12/14/18at 08:18; Admin Dose 650 MG; Start 12/11/18 at 20:30 Famotidine (Pepcid Iv) 20 mg Q48H IV Last administered on 12/15/18at 05:54; Admin Dose 20 MG; Start 12/13/18 at 07:00 Fluconazole/ Sodium Chloride 50 ml @ 50 mls/hr Q24H IVPB Last administered on 12/14/18 14:26; Admin Dose 50 MLS/HR; Start 12/12/18 at 14:00 Insulin Aspart (Novolog Insulin Pen) NOVOLOG *MODERATE* ALGORITHM Q4 SC Last administered on 12/15/18at 12:20; Admin Dose 2 UNIT; Start 12/12/18 at 13:00 Metronidazole 100 ml @ 100 mls/hr Q6 IVPB Last administered on 12/15/18at 05:52; Admin Dose 100 MLS/HR; Start 12/13/18 at 12:00 Miconazole (Monistat-7) 2 supp HS VAG Last administered on 12/14/18at 21:35; Admin Dose 2 SUPP; Start 12/13/18 at 21:00; Stop 12/15/18 at 21:01 Lorazepam (Ativan) 1 mg Q10MIN PRN IV SEIZURES Last administered on 12/14/18at 17:16; Admin Dose 1 MG; Start 12/13/18 at 13:30 Insulin Glargine (Lantus) 25 units DAILY@0800 SC Last administered on 12/15/18at 08:05; Admin Dose 25 UNITS; Start 12/15/18 at 08:00 Epoetin Man-epbx (Retacrit) 6,000 unit TuThSa@1700 SC ; Start 12/16/18 at 17:00 Vancomycin HCl 250 ml @ 125 mls/hr Q96H IVPB ; Start 12/15/18 at 18:00 CASSANDRA POSADAS Dec 15, 2018 13:49
[2018-12-15] MEDS: FLUCONAZOLE 100 MG/50 ML (PMX) 50 ML IVPB SCH (14:59)
[2018-12-15] MEDS: VANCOMYCIN 1 GM 250 ML IVPB SCH (17:52)
[2018-12-15] MEDS: CEFEPIME 1GM/50 ML (PMX) 50 ML IVPB SCH (20:24)
[2018-12-15] MEDS: MICONAZOLE 100 MG VAG SUPP VAG SCH (20:24)
[2018-12-15] MEDS: PHENYTOIN 300 MG in SOD CHLORIDE 0.9% 50 ML IV SCH (21:42)
[2018-12-16] VITALS (35 sets, daily range): BP systolic 105–155; BP diastolic 49–66; PULSE 70–83; RESP 0–28
[2018-12-16] MEDS: OCULAR LUBRICANT 3.5 GM OPH OINT BOTH EYES SCH ×4 (00:01→16:46)
[2018-12-16] MEDS: INSULIN ASPART [NOVOLOG] 3 ML PEN SC SCH ×6 (00:04→20:20)
[2018-12-16] MEDS: metroNIDAZOLE 500 MG/NS (PMX) 100 ML IVPB SCH ×4 (00:05→17:12)
[2018-12-16] MEDS: ACCU-CHEK XX SCH ×7 (00:08→20:21)
[2018-12-16] MEDS: ACETAMINOPHEN 650MG/20.3ML CUP GTB PRN (00:16)
[2018-12-16] MEDS: ARTIFICIAL TEARS 15 ML OPH BOTH EYES SCH ×4 (05:32→16:46)
[2018-12-16] MEDS: ASPIRIN 81 MG TAB PO SCH (07:58)
[2018-12-16] MEDS: CALCIUM ACETATE 667 MG CAP PO SCH ×3 (07:58→16:41)
[2018-12-16] MEDS: LACTULOSE 30ML CUP PO SCH ×2 (08:02→20:09)
[2018-12-16] MEDS: MULTIVIT/CA CARB/B CMPLX/FA TAB PO SCH (08:02)
[2018-12-16] MEDS: COLLAGENASE 5 GM (UD JAR) TOP SCH (08:11)
[2018-12-16] MEDS: BRIMONIDINE 0.2% 5 ML BTL BOTH EYES SCH (08:12)
[2018-12-16] MEDS: LEVETIRACETAM 500 MG (PMX) 100 ML IVPB SCH ×2 (08:19→20:08)
[2018-12-16] MEDS: INSULIN GLARGINE [LANTus] (100 UNITS/ML) SYG SC SCH (08:20)
--- NOTE | 2018-12-16 09:16 | CONS ---
Assessment/Plan Assessment/Plan Assessment/Plan (Daily) Ventilator setting; AC of 12, tidal volume 400, PEEP of 5, 30% FiO2. Assessment recommendations; 1. Status post cardiac arrest, status post hypothermia protocol with severe anoxic encephalopathy. 2. Renal failure, on hemodialysis. 3. Bilateral pneumonia with significant radiological improvement. 4. C. difficile colitis. 5. Anemia and thrombocytopenia. 6. Stable seizure disorder. 7. Mild generalized edema. Continue current supportive care. Patient's family is contemplating CODE STATUS, they are waiting for some family members to arrive out of state. Prognosis does appear very poor. Consider stopping systemic antibiotics other than Flagyl. Consultation Date/Type/Reason Admit Date/Time Dec 06, 2018 at 12:45 Initial Consult Date 12/06/18 Type of Consult Pulmonary/critical care Requesting Provider: BOZENA PARK Date/Time of Note DATE: 12/16/18 TIME: 09:10 24 HR Interval Summary Free Text/Dictation Patient's condition is critical but hemodynamically stable. Remains profoundly unresponsive. General exam; young female, morbidly obese, orally intubated, unresponsive, currently in no distress. Exam/Review of Systems Exam Vitals Vital Signs Date Temp Pulse Resp B/P (MAP) Pulse Ox O2 O2 Flow FiO2 Time Delivery Rate 12/16/18 74 08:00 12/16/18 99.7 16 131/56 100 Mechanical 06:00 (81) Ventilator 12/16/18 30 05:10 Intake and Output 12/15/18 12/15/18 12/16/18 1414:59 22:59 06:59 IntakeIntake Total 828 ml 926 ml 520 ml OutputOutput Total 3400 ml BalanceBalance -2572 ml 926 ml 520 ml Exam H EENT exam; supple neck, facial plethora, orally intubated, patient has fair dentition. There is a left corneal opacity, there is bilateral subconjunctival edema. Chest exam; diminished but clear breath sounds. S1-S2 audible, no murmurs. Regular rhythm. Abdomen exam; soft, protuberant. No organomegaly. Bowel sounds audible. Extremity exam; trace generalized edema. RN RESIDENTIAL exam; patient remains profoundly unresponsive. Results Result Diagram: 12/16/18 0429 12/16/18 0429 Results 24hrs Laboratory Tests Test 12/15/18 12:16 12/15/18 14:22 12/15/18 15:00 12/15/18 17:52 Bedside Glucose 170 233 H Phenytoin 10.4 (Dilantin) Level Stool Occult NEGATIVE Blood Test 12/15/18 20:26 12/16/18 00:02 12/16/18 04:29 12/16/18 04:50 Bedside Glucose 248 H 241 H White Blood Count 14.7 H Red Blood Count 2.94 L Hemoglobin 8.7 L Hematocrit 28.8 L Mean Corpuscular 98.0 Volume Mean Corpuscular 29.6 Hemoglobin Mean Corpuscular 30.2 L Hemoglobin Concen t Red Cell 15.3 H Distribution Width Platelet Count 177 Mean Platelet 10.3 Volume Immature 1.200 H Granulocytes % Neutrophils % 81.3 H Lymphocytes % 6.4 L Monocytes % 9.8 Eosinophils % 1.0 Basophils % 0.3 Nucleated Red 0.0 Blood Cells % Immature 0.170 H Granulocytes # Neutrophils # 11.9 H Lymphocytes # 0.9 Monocytes # 1.4 H Eosinophils # 0.2 Basophils # 0.1 Nucleated Red 0.0 Blood Cells # Sodium Level 141 Potassium Level 3.8 Chloride Level 102 Carbon Dioxide 28 Level Anion Gap 11 Blood Urea 47 H Nitrogen Creatinine 3.95 #H Est Glomerular 12 L Filtrat Rate mL/min Glucose Level 244 H Calcium Level 9.2 Phosphorus Level 1.5 L Magnesium Level 2.3 Lab Scanned BLOOD TRANSFUSIO Report N Test 12/16/18 05:31 12/16/18 07:57 Bedside Glucose 250 H 292 H Medications Medication Current Medications Ondansetron HCl (Zofran Inj) 4 mg Q6H PRN IV NAUSEA AND/OR VOMITING; Start 12/06/18 at 09:30 Albuterol (Proventil 0.083% (Neb)) 2.5 mg Q2H RESP THERAPY PRN NEB SHORTNESS OF BREATH; Start 12/06/18 at 09:30 Docusate Sodium (Colace) 100 mg Q12H PRN PO CONSTIPATION; Start 12/06/18 at 09:30 Magnesium Hydroxide (Milk Of Mag) 30 ml DAILY PRN PO CONSTIPATION; Start 12/06/18 at 09:30 Aspirin (Aspirin) 81 mg DAILY PO Last administered on 12/16/18at 07:58; Admin Dose 81 MG; Start 12/06/18 at 10:30 Brimonidine Tartrate (Alphagan 0.2%) 1 drop DAILY BOTH EYES Last administered on 12/16/18 08:12; Admin Dose 1 DROP; Start 12/06/18 at 11:00 Calcium Acetate (Phoslo) 667 mg WITH MEALS PO Last administered on 12/16/18 07:58; Admin Dose 667 MG; Start 12/06/18 at 12:00 Docusate Sodium (Colace) 200 mg DAILY PO ; Start 12/06/18 at 10:30; Status Hold Lactulose (Enulose) 20 gm BID PO Last administered on 12/16/18 08:02; Admin Dose 20 GM; Start 12/06/18 at 21:00 Montelukast Sodium (Singulair) 10 mg HS PO ; Start 12/06/18 at 21:00; Status Hold Multivit/Ca Carb/ B Cmplx/FA/Prenat (Mariaelena-Rosas) 1 tab DAILY PO Last administered on 12/16/18 08:02; Admin Dose 1 TAB; Start 12/06/18 at 10:30 Norepinephrine 250 ml @ 1.875 mls/ hr TITRATE IV Last administered on 12/07/18 13:25; Admin Dose 56.25 MLS/HR; Start 12/06/18 at 13:00 Atropine Sulfate (Atropine (Syringe)) 1 mg PRN PRN IV prn Last administered on 12/06/18 16:49; Admin Dose 1 MG; Start 12/06/18 at 16:00 Midazolam HCl 50 ml @ 1 mls/hr TITRATE IV Last administered on 12/09/18 05:09; Admin Dose 4 MLS/HR; Start 12/06/18 at 16:30 Vancomycin HCl (Vanco Iv Per Pharmacy) VANCOMYCIN PER PHARMACY PER PROTOCOL XX ; Start 12/06/18 at 17:30 Cefepime HCl 50 ml @ 100 mls/hr Q24H IVPB Last administered on 12/15/18 20:24; Admin Dose 100 MLS/HR; Start 12/06/18 at 21:00 Levetiracetam 100 ml @ 400 mls/hr Q12 IVPB Last administered on 12/16/18 08:19; Admin Dose 400 MLS/HR; Start 12/06/18 at 21:00 Dopamine HCl/ Dextrose 250 ml @ 7.613 mls/ hr TITRATE IV Last administered on 12/09/18 03:03; Admin Dose 11.419 MLS/HR; Start 12/06/18 at 17:30 Acetaminophen (Tylenol Supp) 650 mg Q4H PRN [place] TEMP > 37C; Start 12/06/18 at 18:30 Meperidine HCl (Demerol) 12.5 mg Q4H PRN IV POST OPERATIVE SHIVERING; Start 12/06/18 at 18:30 Meperidine HCl (Demerol) 25 mg Q4H PRN IV POST OPERATIVE SHIVERING; Start 12/06/18 at 18:30 Eye Lubricant (Akwa Oint) 1 applic Q6 BOTH EYES Last administered on 12/16/18 05:33; Admin Dose 1 APPLIC; Start 12/07/18 at 00:00 Eye Lubricant (Artificial Tears Oph) 2 drop Q6 BOTH EYES Last administered on 12/16/18 05:32; Admin Dose 2 DROP; Start 12/07/18 at 00:00 Magnesium Sulfate 50 ml @ 25 mls/hr PRN PRN IVPB IV PROTOCOL; Start 12/06/18 at 20:30 Potassium Chloride 50 ml @ 25 mls/hr PRN PRN IVPB IV PROTOCOL Last administered on 12/07/18 08:33; Admin Dose 25 MLS/HR; Start 12/06/18 at 20:30 Heparin Sodium (Porcine) (Heparin (1000 Units/ml)) 4,000 unit AFTER DIALYSIS CATHETER ; Start 12/06/18 at 22:00 Albumin Human 100 ml @ 100 mls/hr WITH DIALYSIS PRN IV SBP <90 DURING DIALYSIS Last administered on 12/13/18 08:56; Admin Dose 100 MLS/HR; Start 12/06/18 at 22:00 Sodium Chloride (NS) -To prime the dialy... DIRECTED FOR HD PRN IV HD; Start 12/06/18 at 22:00 Phenytoin 200 mg/ Sodium Chloride 54 ml @ 112 mls/hr AM IV Last administered on 12/15/18 08:07; Admin Dose 112 MLS/HR; Start 12/07/18 at 09:00 Phenytoin 200 mg/ Sodium Chloride 54 ml @ 112 mls/hr PC LUNCH IV Last administered on 12/15/18 14:04; Admin Dose 112 MLS/HR; Start 12/07/18 at 12:30 Phenytoin 300 mg/ Sodium Chloride 56 ml @ 112 mls/hr 2100 IV Last administered on 12/15/18at 21:42; Admin Dose 112 MLS/HR; Start 12/07/18 at 21:00 Fentanyl 100 ml @ 2.5 mls/hr TITRATE IV Last administered on 12/08/18at 06:27; Admin Dose 2.5 MLS/HR; Start 12/08/18 at 06:30 Diagnostic Test (Pha) (Accu-Chek) 1 ea 02 XX Last administered on 12/13/18at 01: 36; Admin Dose 1 EA; Start 12/09/18 at 02:00 Miscellaneous Information 1 ea NOTE XX ; Start 12/08/18 at 11:30 Glucose (Glutose) 15 gm Q15M PRN PO DECREASED GLUCOSE; Start 12/08/18 at 11:30 Glucose (Glutose) 22.5 gm Q15M PRN PO DECREASED GLUCOSE; Start 12/08/18 at 11:30 Dextrose (D50w Syringe) 25 ml Q15M PRN IV DECREASED GLUCOSE; Start 12/08/18 at 11:30 Dextrose (D50w Syringe) 50 ml Q15M PRN IV DECREASED GLUCOSE; Start 12/08/18 at 11:30 Glucagon (Glucagen) 1 mg Q15M PRN IM DECREASED GLUCOSE; Start 12/08/18 at 11:30 Glucose (Glutose) 15 gm Q15M PRN BUCCAL DECREASED GLUCOSE; Start 12/08/18 at 11:30 Collagenase (Santyl) 1 applic DAILY TOP Last administered on 12/16/18at 08:11; Admin Dose 1 APPLIC; Start 12/10/18 at 09:00 Diagnostic Test (Pha) (Accu-Chek) 1 ea Q4 XX Last administered on 12/14/18at 08:21; Admin Dose 1 EA; Start 12/11/18 at 13:00 Total Parenteral Nutrition 1,000 ml @ 50 mls/hr Q20H IV Last administered on 12/12/18at 18:06; Admin Dose 50 MLS/HR; Start 12/11/18 at 18:00; Status Hold Acetaminophen (Tylenol Liquid) 650 mg Q6H PRN GTB MILD PAIN(1-3)OR ELEVATED TEMP Last administered on 12/16/18 00:16; Admin Dose 650 MG; Start 12/11/18 at 20:30 Famotidine (Pepcid Iv) 20 mg Q48H IV Last administered on 12/15/18 05:54; Admin Dose 20 MG; Start 12/13/18 at 07:00 Fluconazole/ Sodium Chloride 50 ml @ 50 mls/hr Q24H IVPB Last administered on 12/15/18 14:59; Admin Dose 50 MLS/HR; Start 12/12/18 at 14:00 Insulin Aspart (Novolog Insulin Pen) NOVOLOG *MODERATE* ALGORITHM Q4 SC Last administered on 12/16/18 08:08; Admin Dose 8 UNIT; Start 12/12/18 at 13:00 Metronidazole 100 ml @ 100 mls/hr Q6 IVPB Last administered on 12/16/18 05:32; Admin Dose 100 MLS/HR; Start 12/13/18 at 12:00 Lorazepam (Ativan) 1 mg Q10MIN PRN IV SEIZURES Last administered on 12/14/18 17:16; Admin Dose 1 MG; Start 12/13/18 at 13:30 Insulin Glargine (Lantus) 25 units DAILY@0800 SC Last administered on 12/16/18 08:20; Admin Dose 25 UNITS; Start 12/15/18 at 08:00 Epoetin Man-epbx (Retacrit) 6,000 unit TuThSa@1700 SC ; Start 12/16/18 at 17:00 Vancomycin HCl 250 ml @ 125 mls/hr Q96H IVPB Last administered on 12/15/18 17:52; Admin Dose 125 MLS/HR; Start 12/15/18 at 18:00 DINESH SAVAGE Dec 16, 2018 09:16
[2018-12-16] MEDS: SOD CHLORIDE 0.9% IV SCH ×2 (09:34→13:16)
[2018-12-16] MEDS: PHENYTOIN IV SCH ×2 (09:34→13:16)
--- NOTE | 2018-12-16 09:52 | PN ---
Date/Time of Note Date/Time of Note DATE: 12/16/18 TIME: 09:42 Assessment/Plan VTE Prophylaxis Risk score (from Ns)>0 risk: 10 SCD applied (from Ns): Yes Pharmacological prophylaxis: NA/contraindicated Pharm contraindication: anticoag not tolerated Lines/Catheters IV Catheter Type (from Nrsg): Central Line Central line still needed: Yes Urinary Cath still in place: Yes Reason Cath still needed: terminal illness/intractable pain Assessment/Plan Assessment/Plan 1. Sepsis secondary to staph bacteremia and aspiration - WBC remains elevated but afebrile - ID on board and appreciate recommendations - Blood cultures noted with repeat negative - Continue antibiotics per ID recommendations 2. Anemia - blood loss and renal disease - H/H remains stable and no need for transfusions at this time -Was partially due to traumatic Wheeler manipulation earlier last week, now that has resolved 3. s/p Cardiac arrest with ROSC - s/p hypothermia protocol - Patient initially with NSVT and given prolonged QT and placement on Amiodarone went into torsades then coded. Patient coded another 3 times total secondary to PEA arrest with ROSC - Cardiology on board and appreciate recommendations. may need cardiac cath if shows signs of neurological recovery 4. Chronic blindness - Chronic left-sided blindness secondary to diabetic retinopathy, patient also has moderate to severe right-sided blindness secondary to diabetic retinopathy 5. ?Arrhythmia, NSVT - Patient has ? afib and may have had afib with aberrancy but initial event was not captured - noted on Coumadin on med rec but INR normal at time of presentation. Will need to touch base with fam vs patient when she recovers on why she takes Coumadin 6. DM - will continue adjusting Lantus for better sugar control 7. ESRD on HD - Nephrology,Dr. Reddy, on board and appreciate consultation. T/T/S scheduled 8. h/o CVA - continue current medications 9. HTN - currently requiring pressor support 10. Disposition - Continue monitoring for improvement in overall mental function. patient will most likely need Trach/PEG. - Palliative on board. Family would like patient to remain full code for now and awaiting further family members to decide of plan of care and code status change >35 minutes of critical care time spent with patient Result Diagram: 12/16/18 0429 12/16/18 0429 Results 24hrs Laboratory Tests Test 12/15/18 12:16 12/15/18 14:22 12/15/18 15:00 12/15/18 17:52 Bedside Glucose 170 233 H Phenytoin 10.4 (Dilantin) Level Stool Occult NEGATIVE Blood Test 12/15/18 20:26 12/16/18 00:02 12/16/18 04:29 12/16/18 04:50 Bedside Glucose 248 H 241 H White Blood Count 14.7 H Red Blood Count 2.94 L Hemoglobin 8.7 L Hematocrit 28.8 L Mean Corpuscular 98.0 Volume Mean Corpuscular 29.6 Hemoglobin Mean Corpuscular 30.2 L Hemoglobin Concen t Red Cell 15.3 H Distribution Width Platelet Count 177 Mean Platelet 10.3 Volume Immature 1.200 H Granulocytes % Neutrophils % 81.3 H Lymphocytes % 6.4 L Monocytes % 9.8 Eosinophils % 1.0 Basophils % 0.3 Nucleated Red 0.0 Blood Cells % Immature 0.170 H Granulocytes # Neutrophils # 11.9 H Lymphocytes # 0.9 Monocytes # 1.4 H Eosinophils # 0.2 Basophils # 0.1 Nucleated Red 0.0 Blood Cells # Sodium Level 141 Potassium Level 3.8 Chloride Level 102 Carbon Dioxide 28 Level Anion Gap 11 Blood Urea 47 H Nitrogen Creatinine 3.95 #H Est Glomerular 12 L Filtrat Rate mL/min Glucose Level 244 H Calcium Level 9.2 Phosphorus Level 1.5 L Magnesium Level 2.3 Lab Scanned BLOOD TRANSFUSIO Report N Test 12/16/18 05:31 12/16/18 07:57 Bedside Glucose 250 H 292 H Subjective 24 Hr Interval Summary Free Text/Dictation Patient remains unresponsive on vent support. Moves feet to touch but not following commands. Exam/Review of Systems Exam Vitals Vital Signs Date Temp Pulse Resp B/P (MAP) Pulse Ox O2 O2 Flow FiO2 Time Delivery Rate 12/16/18 74 08:00 12/16/18 99.7 16 131/56 100 Mechanical 06:00 (81) Ventilator 12/16/18 30 05:10 Intake and Output 12/15/18 12/15/18 12/16/18 1515:00 23:00 07:00 IntakeIntake Total 778 ml 926 ml 480 ml OutputOutput Total 3400 ml BalanceBalance -2622 ml 926 ml 480 ml Exam General: Patient is intubated and nonresponsive. swelling of face Eyes: EOMI, left pupil is alfredo out chronically Neck: Supple, nontender, midline Lungs: Coarse to auscultation bilaterally. no wheezing Cardiovascular: S1, S2, regular rate and rhythm, no obvious murmurs Gastrointestinal: soft, non-tender to palpation, protuberant, bowel sounds heard. Neurological: No purposeful movement, occasional cough Skin: No new skin lesions Results Results 24hrs Laboratory Tests Test 12/15/18 12:16 12/15/18 14:22 12/15/18 15:00 12/15/18 17:52 Bedside Glucose 170 233 H Phenytoin 10.4 (Dilantin) Level Stool Occult NEGATIVE Blood Test 12/15/18 20:26 12/16/18 00:02 12/16/18 04:29 12/16/18 04:50 Bedside Glucose 248 H 241 H White Blood Count 14.7 H Red Blood Count 2.94 L Hemoglobin 8.7 L Hematocrit 28.8 L Mean Corpuscular 98.0 Volume Mean Corpuscular 29.6 Hemoglobin Mean Corpuscular 30.2 L Hemoglobin Concen t Red Cell 15.3 H Distribution Width Platelet Count 177 Mean Platelet 10.3 Volume Immature 1.200 H Granulocytes % Neutrophils % 81.3 H Lymphocytes % 6.4 L Monocytes % 9.8 Eosinophils % 1.0 Basophils % 0.3 Nucleated Red 0.0 Blood Cells % Immature 0.170 H Granulocytes # Neutrophils # 11.9 H Lymphocytes # 0.9 Monocytes # 1.4 H Eosinophils # 0.2 Basophils # 0.1 Nucleated Red 0.0 Blood Cells # Sodium Level 141 Potassium Level 3.8 Chloride Level 102 Carbon Dioxide 28 Level Anion Gap 11 Blood Urea 47 H Nitrogen Creatinine 3.95 #H Est Glomerular 12 L Filtrat Rate mL/min Glucose Level 244 H Calcium Level 9.2 Phosphorus Level 1.5 L Magnesium Level 2.3 Lab Scanned BLOOD TRANSFUSIO Report N Test 12/16/18 05:31 12/16/18 07:57 Bedside Glucose 250 H 292 H Medications Medication Current Medications Ondansetron HCl (Zofran Inj) 4 mg Q6H PRN IV NAUSEA AND/OR VOMITING; Start 12/06/18 at 09:30 Albuterol (Proventil 0.083% (Neb)) 2.5 mg Q2H RESP THERAPY PRN NEB SHORTNESS OF BREATH; Start 12/06/18 at 09:30 Docusate Sodium (Colace) 100 mg Q12H PRN PO CONSTIPATION; Start 12/06/18 at 09: 30 Magnesium Hydroxide (Milk Of Mag) 30 ml DAILY PRN PO CONSTIPATION; Start 12/06/18 at 09:30 Aspirin (Aspirin) 81 mg DAILY PO Last administered on 12/16/18 07:58; Admin Dose 81 MG; Start 12/06/18 at 10:30 Brimonidine Tartrate (Alphagan 0.2%) 1 drop DAILY BOTH EYES Last administered on 12/16/18 08:12; Admin Dose 1 DROP; Start 12/06/18 at 11:00 Calcium Acetate (Phoslo) 667 mg WITH MEALS PO Last administered on 12/16/18 07:58; Admin Dose 667 MG; Start 12/06/18 at 12:00 Docusate Sodium (Colace) 200 mg DAILY PO ; Start 12/06/18 at 10:30; Status Hold Lactulose (Enulose) 20 gm BID PO Last administered on 12/16/18 08:02; Admin Dose 20 GM; Start 12/06/18 at 21:00 Montelukast Sodium (Singulair) 10 mg HS PO ; Start 12/06/18 at 21:00; Status Hold Multivit/Ca Carb/ B Cmplx/FA/Prenat (Mariaelena-Rosas) 1 tab DAILY PO Last administered on 12/16/18 08:02; Admin Dose 1 TAB; Start 12/06/18 at 10:30 Norepinephrine 250 ml @ 1.875 mls/ hr TITRATE IV Last administered on 12/07/18 13:25; Admin Dose 56.25 MLS/HR; Start 12/06/18 at 13:00 Atropine Sulfate (Atropine (Syringe)) 1 mg PRN PRN IV prn Last administered on 12/06/18 16:49; Admin Dose 1 MG; Start 12/06/18 at 16:00 Midazolam HCl 50 ml @ 1 mls/hr TITRATE IV Last administered on 12/09/18 05:09; Admin Dose 4 MLS/HR; Start 12/06/18 at 16:30 Vancomycin HCl (Vanco Iv Per Pharmacy) VANCOMYCIN PER PHARMACY PER PROTOCOL XX ; Start 12/06/18 at 17:30 Cefepime HCl 50 ml @ 100 mls/hr Q24H IVPB Last administered on 12/15/18at 20:24; Admin Dose 100 MLS/HR; Start 12/06/18 at 21:00 Levetiracetam 100 ml @ 400 mls/hr Q12 IVPB Last administered on 12/16/18at 08 :19; Admin Dose 400 MLS/HR; Start 12/06/18 at 21:00 Dopamine HCl/ Dextrose 250 ml @ 7.613 mls/ hr TITRATE IV Last administered on 12/09/18at 03:03; Admin Dose 11.419 MLS/HR; Start 12/06/18 at 17:30 Acetaminophen (Tylenol Supp) 650 mg Q4H PRN [place] TEMP > 37C; Start 12/06/18 at 18:30 Meperidine HCl (Demerol) 12.5 mg Q4H PRN IV POST OPERATIVE SHIVERING; Start 12/06/18 at 18:30 Meperidine HCl (Demerol) 25 mg Q4H PRN IV POST OPERATIVE SHIVERING; Start 12/06/18 at 18:30 Eye Lubricant (Akwa Oint) 1 applic Q6 BOTH EYES Last administered on 12/16/18at 05:33; Admin Dose 1 APPLIC; Start 12/07/18 at 00:00 Eye Lubricant (Artificial Tears Oph) 2 drop Q6 BOTH EYES Last administered on 12/16/18at 05:32; Admin Dose 2 DROP; Start 12/07/18 at 00:00 Magnesium Sulfate 50 ml @ 25 mls/hr PRN PRN IVPB IV PROTOCOL; Start 12/06/18 at 20:30 Potassium Chloride 50 ml @ 25 mls/hr PRN PRN IVPB IV PROTOCOL Last administered on 12/07/18at 08:33; Admin Dose 25 MLS/HR; Start 12/06/18 at 20:30 Heparin Sodium (Porcine) (Heparin (1000 Units/ml)) 4,000 unit AFTER DIALYSIS CATHETER ; Start 12/06/18 at 22:00 Albumin Human 100 ml @ 100 mls/hr WITH DIALYSIS PRN IV SBP <90 DURING DIALYSIS Last administered on 12/13/18at 08:56; Admin Dose 100 MLS/HR; Start 12/06/18 at 22:00 Sodium Chloride (NS) -To prime the dialy... DIRECTED FOR HD PRN IV HD; Start 12/06/18 at 22:00 Phenytoin 200 mg/ Sodium Chloride 54 ml @ 112 mls/hr AM IV Last administered on 12/16/18 09:34; Admin Dose 112 MLS/HR; Start 12/07/18 at 09:00 Phenytoin 200 mg/ Sodium Chloride 54 ml @ 112 mls/hr PC LUNCH IV Last administered on 12/15/18 14:04; Admin Dose 112 MLS/HR; Start 12/07/18 at 12:30 Phenytoin 300 mg/ Sodium Chloride 56 ml @ 112 mls/hr 2100 IV Last administered on 12/15/18 21:42; Admin Dose 112 MLS/HR; Start 12/07/18 at 21:00 Fentanyl 100 ml @ 2.5 mls/hr TITRATE IV Last administered on 12/08/18 06:27; Admin Dose 2.5 MLS/HR; Start 12/08/18 at 06:30 Diagnostic Test (Pha) (Accu-Chek) 1 ea 02 XX Last administered on 12/13/18at 01:36; Admin Dose 1 EA; Start 12/09/18 at 02:00 Miscellaneous Information 1 ea NOTE XX ; Start 12/08/18 at 11:30 Glucose (Glutose) 15 gm Q15M PRN PO DECREASED GLUCOSE; Start 12/08/18 at 11:30 Glucose (Glutose) 22.5 gm Q15M PRN PO DECREASED GLUCOSE; Start 12/08/18 at 11:30 Dextrose (D50w Syringe) 25 ml Q15M PRN IV DECREASED GLUCOSE; Start 12/08/18 at 11:30 Dextrose (D50w Syringe) 50 ml Q15M PRN IV DECREASED GLUCOSE; Start 12/08/18 at 11:30 Glucagon (Glucagen) 1 mg Q15M PRN IM DECREASED GLUCOSE; Start 12/08/18 at 11:30 Glucose (Glutose) 15 gm Q15M PRN BUCCAL DECREASED GLUCOSE; Start 12/08/18 at 11:30 Collagenase (Santyl) 1 applic DAILY TOP Last administered on 12/16/18at 08:11; Admin Dose 1 APPLIC; Start 12/10/18 at 09:00 Diagnostic Test (Pha) (Accu-Chek) 1 ea Q4 XX Last administered on 12/14/18 08:21; Admin Dose 1 EA; Start 12/11/18 at 13:00 Total Parenteral Nutrition 1,000 ml @ 50 mls/hr Q20H IV Last administered on 12/12/18 18:06; Admin Dose 50 MLS/HR; Start 12/11/18 at 18:00; Status Hold Acetaminophen (Tylenol Liquid) 650 mg Q6H PRN GTB MILD PAIN(1-3)OR ELEVATED TEMP Last administered on 12/16/18 00:16; Admin Dose 650 MG; Start 12/11/18 at 20:30 Famotidine (Pepcid Iv) 20 mg Q48H IV Last administered on 12/15/18 05:54; Admin Dose 20 MG; Start 12/13/18 at 07:00 Fluconazole/ Sodium Chloride 50 ml @ 50 mls/hr Q24H IVPB Last administered on 12/15/18 14:59; Admin Dose 50 MLS/HR; Start 12/12/18 at 14:00 Insulin Aspart (Novolog Insulin Pen) NOVOLOG *MODERATE* ALGORITHM Q4 SC Last administered on 12/16/18 08:08; Admin Dose 8 UNIT; Start 12/12/18 at 13:00 Metronidazole 100 ml @ 100 mls/hr Q6 IVPB Last administered on 12/16/18 05:32; Admin Dose 100 MLS/HR; Start 12/13/18 at 12:00 Lorazepam (Ativan) 1 mg Q10MIN PRN IV SEIZURES Last administered on 12/14/18 17:16; Admin Dose 1 MG; Start 12/13/18 at 13:30 Insulin Glargine (Lantus) 25 units DAILY@0800 SC Last administered on 12/16/18 08:20; Admin Dose 25 UNITS; Start 12/15/18 at 08:00 Epoetin Man-epbx (Retacrit) 6,000 unit TuThSa@1700 SC ; Start 12/16/18 at 17:00 Vancomycin HCl 250 ml @ 125 mls/hr Q96H IVPB Last administered on 12/15/18 17:52; Admin Dose 125 MLS/HR; Start 12/15/18 at 18:00 BEAN BEST MD Dec 16, 2018 09:52
[2018-12-16] MEDS ORDERED: GLUCOSE GEL 15 GRAM TUBE PO PRN ×2 (10:00)
[2018-12-16] MEDS ORDERED: GLUCAGON 1 MG INJ IM PRN (10:00)
[2018-12-16] MEDS ORDERED: DEXTROSE 50% 50 ML SYRINGE IV PRN ×2 (10:00)
[2018-12-16] MEDS ORDERED: INSULIN GLARGINE [LANTus] (100 UNITS/ML) SYG SC ONE (10:00)
[2018-12-16] MEDS ORDERED: GLUCOSE GEL 15 GRAM TUBE BUCCAL PRN (10:00)
--- NOTE | 2018-12-16 11:03 | CONS ---
Assessment/Plan Assessment/Plan Hospital Course 47 F c/ reported Hx of stroke and epilepsy, among other comorbidities, who is currently admitted to the [facility] ICU following cardiac arrest. Now s/p TTM. On neurologic examination, she has preserved brainstem activity and a withdrawal motor response.. Her prognosis for meaningful neurologic recovery is probably poor. CTH was without acute intracranial pathology, though it was notable for severe atrophy and chronic subdurals. Initial EEG was without epileptiform activity; repeat EEG is the same. P: Continue Dilantin maintenance per ops for now; titrate prn to goal level 10-20 Continue Keppra per ops for now Ativan iv prn prolonged seizure or cluster Continue to limit sedating medications where possible Other medical management and supportive care per primary Will follow Consultation Date/Type/Reason Admit Date/Time Dec 06, 2018 at 12:45 Type of Consult Neurology Requesting Provider: BOZENA PARK Date/Time of Note DATE: 12/16/18 TIME: 11:03 24 HR Interval Summary Free Text/Dictation Continues acute care. Exam Vital Signs Vitals Vital Signs Date Temp Pulse Resp B/P (MAP) Pulse Ox O2 O2 Flow FiO2 Time Delivery Rate 12/16/18 73 16 130/56 100 09:00 (80) 12/16/18 30 08:00 12/16/18 99.5 Mechanical 08:00 Ventilator Intake and Output 12/15/18 12/15/18 12/16/18 1515:00 23:00 07:00 IntakeIntake Total 778 ml 926 ml 520 ml OutputOutput Total 3400 ml BalanceBalance -2622 ml 926 ml 520 ml Exam PE: Gen Appearance: No Apparent Distress HEENT: Intubated; edematous Cardiovascular: Regular rate Abdomen: Soft Extremities: Dry; edematous NE: The patient was comatose. Cranial nerve examination was limited by mental status. R pupil was sluggishly reactive to light; cataract in L pupil. Funduscopic examination was limited. Face was grossly symmetric, w/ present corneal and cough reflexes. Tone was normal. Muscle bulk was normal. I did not see fasciculations. The patient withdrew her lower extremities to noxious stimuli. Coordination and gait testing was limited by mental status. Arm and leg reflexes were symmetric. Sun's sign was absent. Plantar responses were extensor. APARNA AQUINO ENVIRONMENTAL COMPLIANCE MANAGER Dec 16, 2018 11:03
--- NOTE | 2018-12-16 12:52 | CONS ---
Assessment/Plan Assessment/Plan Hospital Course (Demo Recall) No acute changes overnight per report. Patient spiked fever last night of 101.7 currently afebrile. WBC 14.7 platelets 177 neutrophils 81.3. Indwelling: Endotracheal tube, NG tube, right upper extremity AV fistula, right femoral triple-lumen catheter 12/14/18 Antimicrobials: Vancomycin, Flagyl, fluconazole, cefepime Blood cultures on admission grew oxacillin sensitive staph aureus, repeat blood cultures negative urine culture negative sputum culture grew Rosa albicans Physical examination: Obese chronically ill-appearing middle-aged woman who is noncommunicative intubated in no distress. Head atraumatic normocephalic neck is obese chest rise symmetrical breath sounds diminished bases heart S1-S2 abdomen obese soft bowel sounds hypoactive extremities with trace edema Assessment: 1. Ongoing fevers ?central 1. Severe sepsis status post shock 2. Bilateral pneumonia 3. Oxacillin sensitive staph aureus bacteremia 4. Status post cardiac arrest with hypothermia protocol 5. Diabetes 6. Seizure disorder 7. End-stage renal disease, hemodialysis dependent 8. Cardiomyopathy with ejection fraction of 35% Plan: Clinically unchanged, continue on current antibiotics, pending family conference Consultation Date/Type/Reason Admit Date/Time Dec 06, 2018 at 12:45 Initial Consult Date 12/06/18 Type of Consult id Requesting Provider: BOZENA PARK Date/Time of Note DATE: 12/16/18 TIME: 12:50 Exam/Review of Systems Exam Vitals Vital Signs Date Temp Pulse Resp B/P (MAP) Pulse Ox O2 O2 Flow FiO2 Time Delivery Rate 12/16/18 71 12:00 12/16/18 99.3 17 136/57 100 Mechanical 12:00 (83) Ventilator 12/16/18 30 11:10 Intake and Output 12/15/18 12/15/18 12/16/18 1515:00 23:00 07:00 IntakeIntake Total 778 ml 926 ml 520 ml OutputOutput Total 3400 ml BalanceBalance -2622 ml 926 ml 520 ml Results Result Diagram: 12/16/18 0429 12/16/18 0429 Results 24hrs Laboratory Tests Test 12/15/18 14:22 12/15/18 15:00 12/15/18 17:52 12/15/18 20:26 Phenytoin 10.4 (Dilantin) Level Stool Occult NEGATIVE Blood Bedside Glucose 233 H 248 H Test 12/16/18 00:02 12/16/18 04:29 12/16/18 04:50 12/16/18 05:31 Bedside Glucose 241 H 250 H White Blood Count 14.7 H Red Blood Count 2.94 L Hemoglobin 8.7 L Hematocrit 28.8 L Mean Corpuscular 98.0 Volume Mean Corpuscular 29.6 Hemoglobin Mean Corpuscular 30.2 L Hemoglobin Concen t Red Cell 15.3 H Distribution Width Platelet Count 177 Mean Platelet 10.3 Volume Immature 1.200 H Granulocytes % Neutrophils % 81.3 H Lymphocytes % 6.4 L Monocytes % 9.8 Eosinophils % 1.0 Basophils % 0.3 Nucleated Red 0.0 Blood Cells % Immature 0.170 H Granulocytes # Neutrophils # 11.9 H Lymphocytes # 0.9 Monocytes # 1.4 H Eosinophils # 0.2 Basophils # 0.1 Nucleated Red 0.0 Blood Cells # Sodium Level 141 Potassium Level 3.8 Chloride Level 102 Carbon Dioxide 28 Level Anion Gap 11 Blood Urea 47 H Nitrogen Creatinine 3.95 #H Est Glomerular 12 L Filtrat Rate mL/min Glucose Level 244 H Calcium Level 9.2 Phosphorus Level 1.5 L Magnesium Level 2.3 Lab Scanned BLOOD TRANSFUSIO Report N Test 12/16/18 07:57 12/16/18 11:15 12/16/18 11:58 Bedside Glucose 292 H 232 H Phenytoin 12.4 (Dilantin) Level Medications Medication Current Medications Ondansetron HCl (Zofran Inj) 4 mg Q6H PRN IV NAUSEA AND/OR VOMITING; Start 12/06/18 at 09:30 Albuterol (Proventil 0.083% (Neb)) 2.5 mg Q2H RESP THERAPY PRN NEB SHORTNESS OF BREATH; Start 12/06/18 at 09:30 Docusate Sodium (Colace) 100 mg Q12H PRN PO CONSTIPATION; Start 12/06/18 at 09:30 Magnesium Hydroxide (Milk Of Mag) 30 ml DAILY PRN PO CONSTIPATION; Start 12/06/18 at 09:30 Aspirin (Aspirin) 81 mg DAILY PO Last administered on 12/16/18at 07:58; Admin Dose 81 MG; Start 12/06/18 at 10:30 Brimonidine Tartrate (Alphagan 0.2%) 1 drop DAILY BOTH EYES Last administered on 12/16/18 08:12; Admin Dose 1 DROP; Start 12/06/18 at 11:00 Calcium Acetate (Phoslo) 667 mg WITH MEALS PO Last administered on 12/16/18 11:49; Admin Dose 667 MG; Start 12/06/18 at 12:00 Docusate Sodium (Colace) 200 mg DAILY PO ; Start 12/06/18 at 10:30; Status Hold Lactulose (Enulose) 20 gm BID PO Last administered on 12/16/18 08:02; Admin Dose 20 GM; Start 12/06/18 at 21:00 Montelukast Sodium (Singulair) 10 mg HS PO ; Start 12/06/18 at 21:00; Status Hold Multivit/Ca Carb/ B Cmplx/FA/Prenat (Mariaelena-Rosas) 1 tab DAILY PO Last administered on 12/16/18 08:02; Admin Dose 1 TAB; Start 12/06/18 at 10:30 Norepinephrine 250 ml @ 1.875 mls/ hr TITRATE IV Last administered on 12/07/18 13:25; Admin Dose 56.25 MLS/HR; Start 12/06/18 at 13:00 Atropine Sulfate (Atropine (Syringe)) 1 mg PRN PRN IV prn Last administered on 12/06/18 16:49; Admin Dose 1 MG; Start 12/06/18 at 16:00 Midazolam HCl 50 ml @ 1 mls/hr TITRATE IV Last administered on 12/09/18 05:09; Admin Dose 4 MLS/HR; Start 12/06/18 at 16:30 Vancomycin HCl (Vanco Iv Per Pharmacy) VANCOMYCIN PER PHARMACY PER PROTOCOL XX ; Start 12/06/18 at 17:30 Cefepime HCl 50 ml @ 100 mls/hr Q24H IVPB Last administered on 12/15/18 20:24; Admin Dose 100 MLS/HR; Start 12/06/18 at 21:00 Levetiracetam 100 ml @ 400 mls/hr Q12 IVPB Last administered on 12/16/18 08:19; Admin Dose 400 MLS/HR; Start 12/06/18 at 21:00 Dopamine HCl/ Dextrose 250 ml @ 7.613 mls/ hr TITRATE IV Last administered on 12/09/18 03:03; Admin Dose 11.419 MLS/HR; Start 12/06/18 at 17:30 Acetaminophen (Tylenol Supp) 650 mg Q4H PRN [place] TEMP > 37C; Start 12/06/18 at 18:30 Meperidine HCl (Demerol) 12.5 mg Q4H PRN IV POST OPERATIVE SHIVERING; Start 12/06/18 at 18:30 Meperidine HCl (Demerol) 25 mg Q4H PRN IV POST OPERATIVE SHIVERING; Start 12/06/18 at 18:30 Eye Lubricant (Akwa Oint) 1 applic Q6 BOTH EYES Last administered on 12/16/18 11:50; Admin Dose 1 APPLIC; Start 12/07/18 at 00:00 Eye Lubricant (Artificial Tears Oph) 2 drop Q6 BOTH EYES Last administered on 12/16/18 11:50; Admin Dose 2 DROP; Start 12/07/18 at 00:00 Magnesium Sulfate 50 ml @ 25 mls/hr PRN PRN IVPB IV PROTOCOL; Start 12/06/18 at 20:30 Potassium Chloride 50 ml @ 25 mls/hr PRN PRN IVPB IV PROTOCOL Last administered on 12/07/18 08:33; Admin Dose 25 MLS/HR; Start 12/06/18 at 20:30 Heparin Sodium (Porcine) (Heparin (1000 Units/ml)) 4,000 unit AFTER DIALYSIS CATHETER ; Start 12/06/18 at 22:00 Albumin Human 100 ml @ 100 mls/hr WITH DIALYSIS PRN IV SBP <90 DURING DIALYSIS Last administered on 12/13/18 08:56; Admin Dose 100 MLS/HR; Start 12/06/18 at 22:00 Sodium Chloride (NS) -To prime the dialy... DIRECTED FOR HD PRN IV HD; Start 12/06/18 at 22:00 Phenytoin 200 mg/ Sodium Chloride 54 ml @ 112 mls/hr AM IV Last administered on 12/16/18 09:34; Admin Dose 112 MLS/HR; Start 12/07/18 at 09:00 Phenytoin 200 mg/ Sodium Chloride 54 ml @ 112 mls/hr PC LUNCH IV Last administered on 12/15/18 14:04; Admin Dose 112 MLS/HR; Start 12/07/18 at 12:30 Phenytoin 300 mg/ Sodium Chloride 56 ml @ 112 mls/hr 2100 IV Last administered on 12/15/18at 21:42; Admin Dose 112 MLS/HR; Start 12/07/18 at 21:00 Fentanyl 100 ml @ 2.5 mls/hr TITRATE IV Last administered on 12/08/18at 06:27; Admin Dose 2.5 MLS/HR; Start 12/08/18 at 06:30 Diagnostic Test (Pha) (Accu-Chek) 1 ea 02 XX Last administered on 12/13/18at 01:36; Admin Dose 1 EA; Start 12/09/18 at 02:00 Miscellaneous Information 1 ea NOTE XX ; Start 12/08/18 at 11:30 Glucose (Glutose) 15 gm Q15M PRN PO DECREASED GLUCOSE; Start 12/08/18 at 11:30 Glucose (Glutose) 22.5 gm Q15M PRN PO DECREASED GLUCOSE; Start 12/08/18 at 11:30 Dextrose (D50w Syringe) 25 ml Q15M PRN IV DECREASED GLUCOSE; Start 12/08/18 at 11:30 Dextrose (D50w Syringe) 50 ml Q15M PRN IV DECREASED GLUCOSE; Start 12/08/18 at 11:30 Glucagon (Glucagen) 1 mg Q15M PRN IM DECREASED GLUCOSE; Start 12/08/18 at 11:30 Glucose (Glutose) 15 gm Q15M PRN BUCCAL DECREASED GLUCOSE; Start 12/08/18 at 11:30 Collagenase (Santyl) 1 applic DAILY TOP Last administered on 12/16/18at 08:11; Admin Dose 1 APPLIC; Start 12/10/18 at 09:00 Diagnostic Test (Pha) (Accu-Chek) 1 ea Q4 XX Last administered on 12/14/18at 08:21; Admin Dose 1 EA; Start 12/11/18 at 13:00 Acetaminophen (Tylenol Liquid) 650 mg Q6H PRN GTB MILD PAIN(1-3)OR ELEVATED T EMP Last administered on 12/16/18at 00:16; Admin Dose 650 MG; Start 12/11/18 at 20:30 Famotidine (Pepcid Iv) 20 mg Q48H IV Last administered on 12/15/18at 05:54; Admin Dose 20 MG; Start 12/13/18 at 07:00 Fluconazole/ Sodium Chloride 50 ml @ 50 mls/hr Q24H IVPB Last administered on 12/15/18at 14:59; Admin Dose 50 MLS/HR; Start 12/12/18 at 14:00 Insulin Aspart (Novolog Insulin Pen) NOVOLOG *MODERATE* ALGORITHM Q4 SC Last administered on 12/16/18at 08:08; Admin Dose 8 UNIT; Start 12/12/18 at 13:00 Metronidazole 100 ml @ 100 mls/hr Q6 IVPB Last administered on 12/16/18at 11:53; Admin Dose 100 MLS/HR; Start 12/13/18 at 12:00 Lorazepam (Ativan) 1 mg Q10MIN PRN IV SEIZURES Last administered on 12/14/18at 17:16; Admin Dose 1 MG; Start 12/13/18 at 13:30 Epoetin Man-epbx (Retacrit) 6,000 unit TuThSa@1700 SC ; Start 12/16/18 at 17:00 Vancomycin HCl 250 ml @ 125 mls/hr Q96H IVPB Last administered on 12/15/18at 17:52; Admin Dose 125 MLS/HR; Start 12/15/18 at 18:00 Insulin Glargine (Lantus) 35 units DAILY@0800 SC ; Start 12/17/18 at 08:00 Miscellaneous Information 1 ea NOTE XX ; Start 12/16/18 at 10:00 Glucose (Glutose) 15 gm Q15M PRN PO DECREASED GLUCOSE; Start 12/16/18 at 10:00 Glucose (Glutose) 22.5 gm Q15M PRN PO DECREASED GLUCOSE; Start 12/16/18 at 10:00 Dextrose (D50w Syringe) 25 ml Q15M PRN IV DECREASED GLUCOSE; Start 12/16/18 at 10:00 Dextrose (D50w Syringe) 50 ml Q15M PRN IV DECREASED GLUCOSE; Start 12/16/18 at 10:00 Glucagon (Glucagen) 1 mg Q15M PRN IM DECREASED GLUCOSE; Start 12/16/18 at 10:00 Glucose (Glutose) 15 gm Q15M PRN BUCCAL DECREASED GLUCOSE; Start 12/16/18 at 10:00 LEWIS PERALES NP Dec 16, 2018 12:52
--- NOTE | 2018-12-16 13:13 | PN ---
Date/Time of Note Date/Time of Note DATE: 12/16/18 TIME: 13:06 Assessment/Plan VTE Prophylaxis Risk score (from Ns)>0 risk: 8 SCD applied (from Ns): Yes SCD contraindicated: other Pharmacological prophylaxis: other Pharm contraindication: other Lines/Catheters IV Catheter Type (from Nrsg): Central Line Central line still needed: Yes Urinary Cath still in place: Yes Reason Cath still needed: urinary retention Assessment/Plan Assessment/Plan 1. S/p Cardiopulmonary Arrest with ROSC, s/p Hypothermia protocol 2. ESRD on HD TTS [facility] at [facility] 3. acute hypoxemic respiratory failure due to cardiac arrest s/p Intubation on ventilator 4. Shock--likely cardiogenic; cannot exclude obstructive though clinical picture not consistent with massive PE. 5. Sepsis 2/2 staph bacteremia 6. HTN heart disease 7.. DM 8. severe Anemia with Hb down to 6.9- S/p 2 U PRBC on 12/12/18 Plan: pt remains intubated, Hb 8.7, BP stable, afebrile s/p HD yesterday 3 L removed,will keep pt on MWF schedule while being in hospital Her original schedule at [facility] unit is TTS s/p hypothermia protocol , remains intubated continue on Epogen ^6000 units SQ TIW for her anemia, Palliative care has been following to discuss goals of care will follow up Plan for possible Trach/PEG Patient is seen in collaboration with Dr Reddy.Dw staff Result Diagram: 12/16/18 0429 12/16/18 0429 Results 24hrs Laboratory Tests Test 12/15/18 14:22 12/15/18 15:00 12/15/18 17:52 12/15/18 20:26 Phenytoin 10.4 (Dilantin) Level Stool Occult NEGATIVE Blood Bedside Glucose 233 H 248 H Test 12/16/18 00:02 12/16/18 04:29 12/16/18 04:50 12/16/18 05:31 Bedside Glucose 241 H 250 H White Blood Count 14.7 H Red Blood Count 2.94 L Hemoglobin 8.7 L Hematocrit 28.8 L Mean Corpuscular 98.0 Volume Mean Corpuscular 29.6 Hemoglobin Mean Corpuscular 30.2 L Hemoglobin Concen t Red Cell 15.3 H Distribution Width Platelet Count 177 Mean Platelet 10.3 Volume Immature 1.200 H Granulocytes % Neutrophils % 81.3 H Lymphocytes % 6.4 L Monocytes % 9.8 Eosinophils % 1.0 Basophils % 0.3 Nucleated Red 0.0 Blood Cells % Immature 0.170 H Granulocytes # Neutrophils # 11.9 H Lymphocytes # 0.9 Monocytes # 1.4 H Eosinophils # 0.2 Basophils # 0.1 Nucleated Red 0.0 Blood Cells # Sodium Level 141 Potassium Level 3.8 Chloride Level 102 Carbon Dioxide 28 Level Anion Gap 11 Blood Urea 47 H Nitrogen Creatinine 3.95 #H Est Glomerular 12 L Filtrat Rate mL/min Glucose Level 244 H Calcium Level 9.2 Phosphorus Level 1.5 L Magnesium Level 2.3 Lab Scanned BLOOD TRANSFUSIO Report N Test 12/16/18 07:57 12/16/18 11:15 12/16/18 11:58 12/16/18 12:59 Bedside Glucose 292 H 232 H 220 Phenytoin 12.4 (Dilantin) Level Subjective 24 Hr Interval Summary Free Text/Dictation - Remains intubated -HD yesterday- 3 L removed - nad - afebrile - no new issues reported last night per staff Subjective hx not possible: pt non-verbal, pt critical status Constitutional: requiring O2 Exam/Review of Systems Exam Vitals Vital Signs Date Temp Pulse Resp B/P (MAP) Pulse Ox O2 O2 Flow FiO2 Time Delivery Rate 12/16/18 71 12:00 12/16/18 99.3 17 136/57 100 Mechanical 12:00 (83) Ventilator 12/16/18 30 11:10 Intake and Output 12/15/18 12/15/18 12/16/18 1414:59 22:59 06:59 IntakeIntake Total 828 ml 926 ml 520 ml OutputOutput Total 3400 ml BalanceBalance -2572 ml 926 ml 520 ml Constitutional: well developed, non-verbal, frail, obese Eyes: nl lids ENMT: nl external ears & nose Neck: non-tender, other (ET intact) Respiratory: diminished breath sounds Cardiovascular: nl pulses, other (s1s2) Gastrointestinal: soft Musculoskeletal: muscle weakness, range of motion Extremities: edema Neurological: unresponsive Results Results 24hrs Laboratory Tests Test 12/15/18 14:22 12/15/18 15:00 12/15/18 17:52 12/15/18 20:26 Phenytoin 10.4 (Dilantin) Level Stool Occult NEGATIVE Blood Bedside Glucose 233 H 248 H Test 12/16/18 00:02 12/16/18 04:29 12/16/18 04:50 12/16/18 05:31 Bedside Glucose 241 H 250 H White Blood Count 14.7 H Red Blood Count 2.94 L Hemoglobin 8.7 L Hematocrit 28.8 L Mean Corpuscular 98.0 Volume Mean Corpuscular 29.6 Hemoglobin Mean Corpuscular 30.2 L Hemoglobin Concen t Red Cell 15.3 H Distribution Width Platelet Count 177 Mean Platelet 10.3 Volume Immature 1.200 H Granulocytes % Neutrophils % 81.3 H Lymphocytes % 6.4 L Monocytes % 9.8 Eosinophils % 1.0 Basophils % 0.3 Nucleated Red 0.0 Blood Cells % Immature 0.170 H Granulocytes # Neutrophils # 11.9 H Lymphocytes # 0.9 Monocytes # 1.4 H Eosinophils # 0.2 Basophils # 0.1 Nucleated Red 0.0 Blood Cells # Sodium Level 141 Potassium Level 3.8 Chloride Level 102 Carbon Dioxide 28 Level Anion Gap 11 Blood Urea 47 H Nitrogen Creatinine 3.95 #H Est Glomerular 12 L Filtrat Rate mL/min Glucose Level 244 H Calcium Level 9.2 Phosphorus Level 1.5 L Magnesium Level 2.3 Lab Scanned BLOOD TRANSFUSIO Report N Test 12/16/18 07:57 12/16/18 11:15 12/16/18 11:58 12/16/18 12:59 Bedside Glucose 292 H 232 H 220 Phenytoin 12.4 (Dilantin) Level Medications Medication Current Medications Ondansetron HCl (Zofran Inj) 4 mg Q6H PRN IV NAUSEA AND/OR VOMITING; Start 12/06/18 at 09:30 Albuterol (Proventil 0.083% (Neb)) 2.5 mg Q2H RESP THERAPY PRN NEB SHORTNESS OF BREATH; Start 12/06/18 at 09:30 Docusate Sodium (Colace) 100 mg Q12H PRN PO CONSTIPATION; Start 12/06/18 at 09:30 Magnesium Hydroxide (Milk Of Mag) 30 ml DAILY PRN PO CONSTIPATION; Start 12/06/18 at 09:30 Aspirin (Aspirin) 81 mg DAILY PO Last administered on 12/16/18at 07:58; Admin Dose 81 MG; Start 12/06/18 at 10:30 Brimonidine Tartrate (Alphagan 0.2%) 1 drop DAILY BOTH EYES Last administered on 12/16/18 08:12; Admin Dose 1 DROP; Start 12/06/18 at 11:00 Calcium Acetate (Phoslo) 667 mg WITH MEALS PO Last administered on 12/16/18 11:49; Admin Dose 667 MG; Start 12/06/18 at 12:00 Docusate Sodium (Colace) 200 mg DAILY PO ; Start 12/06/18 at 10:30; Status Hold Lactulose (Enulose) 20 gm BID PO Last administered on 12/16/18 08:02; Admin Dose 20 GM; Start 12/06/18 at 21:00 Montelukast Sodium (Singulair) 10 mg HS PO ; Start 12/06/18 at 21:00; Status Hol d Multivit/Ca Carb/ B Cmplx/FA/Prenat (Mariaelena-Rosas) 1 tab DAILY PO Last administered on 12/16/18 08:02; Admin Dose 1 TAB; Start 12/06/18 at 10:30 Norepinephrine 250 ml @ 1.875 mls/ hr TITRATE IV Last administered on 12/07/18 13:25; Admin Dose 56.25 MLS/HR; Start 12/06/18 at 13:00 Atropine Sulfate (Atropine (Syringe)) 1 mg PRN PRN IV prn Last administered on 12/06/18 16:49; Admin Dose 1 MG; Start 12/06/18 at 16:00 Midazolam HCl 50 ml @ 1 mls/hr TITRATE IV Last administered on 12/09/18 05:09; Admin Dose 4 MLS/HR; Start 12/06/18 at 16:30 Vancomycin HCl (Vanco Iv Per Pharmacy) VANCOMYCIN PER PHARMACY PER PROTOCOL XX ; Start 12/06/18 at 17:30 Cefepime HCl 50 ml @ 100 mls/hr Q24H IVPB Last administered on 12/15/18 20:24; Admin Dose 100 MLS/HR; Start 12/06/18 at 21:00 Levetiracetam 100 ml @ 400 mls/hr Q12 IVPB Last administered on 12/16/18 08:19; Admin Dose 400 MLS/HR; Start 12/06/18 at 21:00 Dopamine HCl/ Dextrose 250 ml @ 7.613 mls/ hr TITRATE IV Last administered on 12/09/18 03:03; Admin Dose 11.419 MLS/HR; Start 12/06/18 at 17:30 Acetaminophen (Tylenol Supp) 650 mg Q4H PRN [place] TEMP > 37C; Start 12/06/18 at 18:30 Meperidine HCl (Demerol) 12.5 mg Q4H PRN IV POST OPERATIVE SHIVERING; Start 12/06/18 at 18:30 Meperidine HCl (Demerol) 25 mg Q4H PRN IV POST OPERATIVE SHIVERING; Start 12/06/18 at 18:30 Eye Lubricant (Akwa Oint) 1 applic Q6 BOTH EYES Last administered on 12/16/18 11:50; Admin Dose 1 APPLIC; Start 12/07/18 at 00:00 Eye Lubricant (Artificial Tears Oph) 2 drop Q6 BOTH EYES Last administered on 12/16/18 11:50; Admin Dose 2 DROP; Start 12/07/18 at 00:00 Magnesium Sulfate 50 ml @ 25 mls/hr PRN PRN IVPB IV PROTOCOL; Start 12/06/18 at 20:30 Potassium Chloride 50 ml @ 25 mls/hr PRN PRN IVPB IV PROTOCOL Last administered on 12/07/18 08:33; Admin Dose 25 MLS/HR; Start 12/06/18 at 20:30 Heparin Sodium (Porcine) (Heparin (1000 Units/ml)) 4,000 unit AFTER DIALYSIS CATHETER ; Start 12/06/18 at 22:00 Albumin Human 100 ml @ 100 mls/hr WITH DIALYSIS PRN IV SBP <90 DURING DIALYSIS Last administered on 12/13/18 08:56; Admin Dose 100 MLS/HR; Start 12/06/18 at 22:00 Sodium Chloride (NS) -To prime the dialy... DIRECTED FOR HD PRN IV HD; Start 12/06/18 at 22:00 Phenytoin 200 mg/ Sodium Chloride 54 ml @ 112 mls/hr AM IV Last administered on 12/16/18 09:34; Admin Dose 112 MLS/HR; Start 12/07/18 at 09:00 Phenytoin 200 mg/ Sodium Chloride 54 ml @ 112 mls/hr PC LUNCH IV Last administered on 12/15/18 14:04; Admin Dose 112 MLS/HR; Start 12/07/18 at 12:30 Phenytoin 300 mg/ Sodium Chloride 56 ml @ 112 mls/hr 2100 IV Last administered on 12/15/18 21:42; Admin Dose 112 MLS/HR; Start 12/07/18 at 21:00 Fentanyl 100 ml @ 2.5 mls/hr TITRATE IV Last administered on 12/08/18 06:27; Admin Dose 2.5 MLS/HR; Start 12/08/18 at 06:30 Diagnostic Test (Pha) (Accu-Chek) 1 ea 02 XX Last administered on 12/13/18at 01:36; Admin Dose 1 EA; Start 12/09/18 at 02:00 Miscellaneous Information 1 ea NOTE XX ; Start 12/08/18 at 11:30 Glucose (Glutose) 15 gm Q15M PRN PO DECREASED GLUCOSE; Start 12/08/18 at 11:30 Glucose (Glutose) 22.5 gm Q15M PRN PO DECREASED GLUCOSE; Start 12/08/18 at 11:30 Dextrose (D50w Syringe) 25 ml Q15M PRN IV DECREASED GLUCOSE; Start 12/08/18 at 11:30 Dextrose (D50w Syringe) 50 ml Q15M PRN IV DECREASED GLUCOSE; Start 12/08/18 at 11:30 Glucagon (Glucagen) 1 mg Q15M PRN IM DECREASED GLUCOSE; Start 12/08/18 at 11:30 Glucose (Glutose) 15 gm Q15M PRN BUCCAL DECREASED GLUCOSE; Start 12/08/18 at 11:30 Collagenase (Santyl) 1 applic DAILY TOP Last administered on 12/16/18at 08:11; Admin Dose 1 APPLIC; Start 12/10/18 at 09:00 Diagnostic Test (Pha) (Accu-Chek) 1 ea Q4 XX Last administered on 12/14/18at 08:21; Admin Dose 1 EA; Start 12/11/18 at 13:00 Acetaminophen (Tylenol Liquid) 650 mg Q6H PRN GTB MILD PAIN(1-3)OR ELEVATED TEMP Last administered on 12/16/18at 00:16; Admin Dose 650 MG; Start 12/11/18 at 20:30 Famotidine (Pepcid Iv) 20 mg Q48H IV Last administered on 4/15/19at 05:54; Admin Dose 20 MG; Start 12/13/18 at 07:00 Fluconazole/ Sodium Chloride 50 ml @ 50 mls/hr Q24H IVPB Last administered on 12/15/18at 14:59; Admin Dose 50 MLS/HR; Start 12/12/18 at 14:00 Insulin Aspart (Novolog Insulin Pen) NOVOLOG *MODERATE* ALGORITHM Q4 SC Last administered on 12/16/18at 13:03; Admin Dose 4 UNIT; Start 12/12/18 at 13:00 Metronidazole 100 ml @ 100 mls/hr Q6 IVPB Last administered on 12/16/18at 11:53; Admin Dose 100 MLS/HR; Start 12/13/18 at 12:00 Lorazepam (Ativan) 1 mg Q10MIN PRN IV SEIZURES Last administered on 12/14/18at 17:16; Admin Dose 1 MG; Start 12/13/18 at 13:30 Epoetin Man-epbx (Retacrit) 6,000 unit TuThSa@1700 SC ; Start 12/16/18 at 17:00 Vancomycin HCl 250 ml @ 125 mls/hr Q96H IVPB Last administered on 12/15/18at 17:52; Admin Dose 125 MLS/HR; Start 12/15/18 at 18:00 Insulin Glargine (Lantus) 35 units DAILY@0800 SC ; Start 12/17/18 at 08:00 Miscellaneous Information 1 ea NOTE XX ; Start 12/16/18 at 10:00 Glucose (Glutose) 15 gm Q15M PRN PO DECREASED GLUCOSE; Start 12/16/18 at 10:00 Glucose (Glutose) 22.5 gm Q15M PRN PO DECREASED GLUCOSE; Start 12/16/18 at 10:00 Dextrose (D50w Syringe) 25 ml Q15M PRN IV DECREASED GLUCOSE; Start 12/16/18 at 10:00 Dextrose (D50w Syringe) 50 ml Q15M PRN IV DECREASED GLUCOSE; Start 12/16/18 at 10:00 Glucagon (Glucagen) 1 mg Q15M PRN IM DECREASED GLUCOSE; Start 12/16/18 at 10:00 Glucose (Glutose) 15 gm Q15M PRN BUCCAL DECREASED GLUCOSE; Start 12/16/18 at 10:00 EMMETT FRANCIS Dec 16, 2018 13:13
[2018-12-16] MEDS: FLUCONAZOLE 100 MG/50 ML (PMX) 50 ML IVPB SCH (14:09)
--- NOTE | 2018-12-16 15:03 | CONS ---
Assessment/Plan Assessment/Plan Hospital Course (Demo Recall) s/p cardiac arrest:First event was torsades in setting of prolonged QT caused by amiodarone. Subsequent PEA events. Trops negative and no ischemic EKG changes. Had a bradycardic arrest as well which may have been metabolic or related to lidocaine. EF is 35% and there is significant RV dysfunction and likely underlying severe pulm HTN which cannot be assessed accurately by echo. If she recovers she will need a cardiac cath for evaluation. Staph aureus bacteremia so may all have been sepsis related Shock: Septic with bacteremia. Off pressors Staph aureus bacteremia: ?from decubs. Repeat cultures negative Torsades: due to amiodarone induced prolonged QTc. Now resolved Prolonged QT: due to amiodarone. Resolved Cardiomyopathy: EF 35% RV dysfunction: doubt acute PE but maybe long standing pulm HTN NSVT: Unfortunately the tele bed in the ER that she was in did not record arrhythmias. Per ER MD she had 10-12 beats runs. Acute on chronic systolic CHF: EF 35%. Decompensated on exam HTN ?Paroxysmal afib: Coumadin is on her med list but INR was normal on admission. With h/o stroke, presumably she had afib in the past. ESRD on HD DM CVA with left weakness -restart coreg 3.125mg BID -HD per nephrology Consultation Date/Type/Reason Admit Date/Time Dec 06, 2018 at 12:45 Initial Consult Date 12/06/18 Type of Consult Cardiology Requesting Provider: BOZENA PARK Date/Time of Note DATE: 12/16/18 TIME: 15:01 24 HR Interval Summary Free Text/Dictation No events and no neurologic improvement Exam/Review of Systems Vital Signs Vitals Vital Signs Date Temp Pulse Resp B/P (MAP) Pulse Ox O2 O2 Flow FiO2 Time Delivery Rate 12/16/18 70 11 134/56 100 14:00 (82) 12/16/18 99.3 Mechanical 12:00 Ventilator 12/16/18 30 11:10 Intake and Output 12/15/18 12/15/18 12/16/18 1515:00 23:00 07:00 IntakeIntake Total 778 ml 926 ml 520 ml OutputOutput Total 3400 ml BalanceBalance -2622 ml 926 ml 520 ml Exam Constitutional: No alert, No oriented ENMT: intubated Neck: supple; No jvd (unable to assess) Respiratory: diminished breath sounds; No clear to auscultation Cardiovascular: regular rate and rhythm Gastrointestinal: soft; No distended Musculoskeletal: No nl extremities to inspection Neurological: No nl mental status, No nl speech Labs Result Diagram: 12/16/18 0429 12/16/189 Results 24hrs Laboratory Tests Test 12/15/18 17:52 12/15/18 20:26 12/16/18 00:02 12/16/18 04:29 Bedside Glucose 233 H 248 H 241 H White Blood Count 14.7 H Red Blood Count 2.94 L Hemoglobin 8.7 L Hematocrit 28.8 L Mean Corpuscular 98.0 Volume Mean Corpuscular 29.6 Hemoglobin Mean Corpuscular 30.2 L Hemoglobin Concen t Red Cell 15.3 H Distribution Width Platelet Count 177 Mean Platelet 10.3 Volume Immature 1.200 H Granulocytes % Neutrophils % 81.3 H Lymphocytes % 6.4 L Monocytes % 9.8 Eosinophils % 1.0 Basophils % 0.3 Nucleated Red 0.0 Blood Cells % Immature 0.170 H Granulocytes # Neutrophils # 11.9 H Lymphocytes # 0.9 Monocytes # 1.4 H Eosinophils # 0.2 Basophils # 0.1 Nucleated Red 0.0 Blood Cells # Sodium Level 141 Potassium Level 3.8 Chloride Level 102 Carbon Dioxide 28 Level Anion Gap 11 Blood Urea 47 H Nitrogen Creatinine 3.95 #H Est Glomerular 12 L Filtrat Rate mL/min Glucose Level 244 H Calcium Level 9.2 Phosphorus Level 1.5 L Magnesium Level 2.3 Test 12/16/18 04:50 12/16/18 05:31 12/16/18 07:57 12/16/18 11:15 Lab Scanned BLOOD TRANSFUSIO Report N Bedside Glucose 250 H 292 H 232 H Test 12/16/18 11:58 12/16/18 12:59 Phenytoin 12.4 (Dilantin) Level Bedside Glucose 220 Medications Medications Current Medications Ondansetron HCl (Zofran Inj) 4 mg Q6H PRN IV NAUSEA AND/OR VOMITING; Start 12/06/18 at 09:30 Albuterol (Proventil 0.083% (Neb)) 2.5 mg Q2H RESP THERAPY PRN NEB SHORTNESS OF BREATH; Start 12/06/18 at 09:30 Docusate Sodium (Colace) 100 mg Q12H PRN PO CONSTIPATION; Start 12/06/18 at 09:30 Magnesium Hydroxide (Milk Of Mag) 30 ml DAILY PRN PO CONSTIPATION; Start 12/06/18 at 09:30 Aspirin (Aspirin) 81 mg DAILY PO Last administered on 12/16/18at 07:58; Admin Dose 81 MG; Start 12/06/18 at 10:30 Brimonidine Tartrate (Alphagan 0.2%) 1 drop DAILY BOTH EYES Last administered on 12/16/18 08:12; Admin Dose 1 DROP; Start 12/06/18 at 11:00 Calcium Acetate (Phoslo) 667 mg WITH MEALS PO Last administered on 12/16/18 11:49; Admin Dose 667 MG; Start 12/06/18 at 12:00 Docusate Sodium (Colace) 200 mg DAILY PO ; Start 12/06/18 at 10:30; Status Hold Lactulose (Enulose) 20 gm BID PO Last administered on 12/16/18 08:02; Admin Dose 20 GM; Start 12/06/18 at 21:00 Montelukast Sodium (Singulair) 10 mg HS PO ; Start 12/06/18 at 21:00; Status Hold Multivit/Ca Carb/ B Cmplx/FA/Prenat (Mariaelena-Rosas) 1 tab DAILY PO Last admin istered on 12/16/18 08:02; Admin Dose 1 TAB; Start 12/06/18 at 10:30 Norepinephrine 250 ml @ 1.875 mls/ hr TITRATE IV Last administered on 12/07/18 13:25; Admin Dose 56.25 MLS/HR; Start 12/06/18 at 13:00 Atropine Sulfate (Atropine (Syringe)) 1 mg PRN PRN IV prn Last administered on 12/06/18 16:49; Admin Dose 1 MG; Start 12/06/18 at 16:00 Midazolam HCl 50 ml @ 1 mls/hr TITRATE IV Last administered on 12/09/18at 05:09; Admin Dose 4 MLS/HR; Start 12/06/18 at 16:30 Vancomycin HCl (Vanco Iv Per Pharmacy) VANCOMYCIN PER PHARMACY PER PROTOCOL XX ; Start 12/06/18 at 17:30 Cefepime HCl 50 ml @ 100 mls/hr Q24H IVPB Last administered on 12/15/18at 20:24; Admin Dose 100 MLS/HR; Start 12/06/18 at 21:00 Levetiracetam 100 ml @ 400 mls/hr Q12 IVPB Last administered on 12/16/18at 08:19; Admin Dose 400 MLS/HR; Start 12/06/18 at 21:00 Dopamine HCl/ Dextrose 250 ml @ 7.613 mls/ hr TITRATE IV Last administered on 12/09/18 03:03; Admin Dose 11.419 MLS/HR; Start 12/06/18 at 17:30 Acetaminophen (Tylenol Supp) 650 mg Q4H PRN [place] TEMP > 37C; Start 12/06/18 at 18:30 Meperidine HCl (Demerol) 12.5 mg Q4H PRN IV POST OPERATIVE SHIVERING; Start 12/06/18 at 18:30 Meperidine HCl (Demerol) 25 mg Q4H PRN IV POST OPERATIVE SHIVERING; Start 12/06/18 at 18:30 Eye Lubricant (Akwa Oint) 1 applic Q6 BOTH EYES Last administered on 12/16/18at 11:50; Admin Dose 1 APPLIC; Start 12/07/18 at 00:00 Eye Lubricant (Artificial Tears Oph) 2 drop Q6 BOTH EYES Last administered on 12/16/18 11:50; Admin Dose 2 DROP; Start 12/07/18 at 00:00 Magnesium Sulfate 50 ml @ 25 mls/hr PRN PRN IVPB IV PROTOCOL; Start 12/06/18 at 20:30 Potassium Chloride 50 ml @ 25 mls/hr PRN PRN IVPB IV PROTOCOL Last administered on 12/07/18at 08:33; Admin Dose 25 MLS/HR; Start 12/06/18 at 20:30 Heparin Sodium (Porcine) (Heparin (1000 Units/ml)) 4,000 unit AFTER DIALYSIS CATHETER ; Start 12/06/18 at 22:00 Albumin Human 100 ml @ 100 mls/hr WITH DIALYSIS PRN IV SBP <90 DURING DIALYSIS Last administered on 12/13/18 08:56; Admin Dose 100 MLS/HR; Start 12/06/18 at 22:00 Sodium Chloride (NS) -To prime the dialy... DIRECTED FOR HD PRN IV HD; Start 12/06/18 at 22:00 Phenytoin 200 mg/ Sodium Chloride 54 ml @ 112 mls/hr AM IV Last administered on 12/16/18 09:34; Admin Dose 112 MLS/HR; Start 12/07/18 at 09:00 Phenytoin 200 mg/ Sodium Chloride 54 ml @ 112 mls/hr PC LUNCH IV Last administered on 12/16/18 13:16; Admin Dose 112 MLS/HR; Start 12/07/18 at 12:30 Phenytoin 300 mg/ Sodium Chloride 56 ml @ 112 mls/hr 2100 IV Last administered on 12/15/18 21:42; Admin Dose 112 MLS/HR; Start 12/07/18 at 21:00 Fentanyl 100 ml @ 2.5 mls/hr TITRATE IV Last administered on 12/08/18 06:27; Admin Dose 2.5 MLS/HR; Start 12/08/18 at 06:30 Diagnostic Test (Pha) (Accu-Chek) 1 ea 02 XX Last administered on 12/13/18at 01:36; Admin Dose 1 EA; Start 12/09/18 at 02:00 Miscellaneous Information 1 ea NOTE XX ; Start 12/08/18 at 11:30 Glucose (Glutose) 15 gm Q15M PRN PO DECREASED GLUCOSE; Start 12/08/18 at 11:30 Glucose (Glutose) 22.5 gm Q15M PRN PO DECREASED GLUCOSE; Start 12/08/18 at 11:30 Dextrose (D50w Syringe) 25 ml Q15M PRN IV DECREASED GLUCOSE; Start 12/08/18 at 11:30 Dextrose (D50w Syringe) 50 ml Q15M PRN IV DECREASED GLUCOSE; Start 12/08/18 at 11:30 Glucagon (Glucagen) 1 mg Q15M PRN IM DECREASED GLUCOSE; Start 12/08/18 at 11:30 Glucose (Glutose) 15 gm Q15M PRN BUCCAL DECREASED GLUCOSE; Start 12/08/18 at 11:30 Collagenase (Santyl) 1 applic DAILY TOP Last administered on 12/16/18at 08:11; Admin Dose 1 APPLIC; Start 12/10/18 at 09:00 Diagnostic Test (Pha) (Accu-Chek) 1 ea Q4 XX Last administered on 12/14/18at 08:21; Admin Dose 1 EA; Start 12/11/18 at 13:00 Acetaminophen (Tylenol Liquid) 650 mg Q6H PRN GTB MILD PAIN(1-3)OR ELEVATED TEMP Last administered on 12/16/18at 00:16; Admin Dose 650 MG; Start 12/11/18 at 20:30 Famotidine (Pepcid Iv) 20 mg Q48H IV Last administered on 12/15/18at 05:54; Admin Dose 20 MG; Start 12/13/18 at 07:00 Fluconazole/ Sodium Chloride 50 ml @ 50 mls/hr Q24H IVPB Last administered on 12/16/18at 14:09; Admin Dose 50 MLS/HR; Start 12/12/18 at 14:00 Insulin Aspart (Novolog Insulin Pen) NOVOLOG *MODERATE* ALGORITHM Q4 SC Last administered on 12/16/18at 13:03; Admin Dose 4 UNIT; Start 12/12/18 at 13:00 Metronidazole 100 ml @ 100 mls/hr Q6 IVPB Last administered on 12/16/18at 11:53; Admin Dose 100 MLS/HR; Start 12/13/18 at 12:00 Lorazepam (Ativan) 1 mg Q10MIN PRN IV SEIZURES Last administered on 12/14/18at 17:16; Admin Dose 1 MG; Start 12/13/18 at 13:30 Epoetin Man-epbx (Retacrit) 6,000 unit TuThSa@1700 SC ; Start 12/16/18 at 17:00 Vancomycin HCl 250 ml @ 125 mls/hr Q96H IVPB Last administered on 12/15/18at 17:52; Admin Dose 125 MLS/HR; Start 12/15/18 at 18:00 Insulin Glargine (Lantus) 35 units DAILY@0800 SC ; Start 12/17/18 at 08:00 Miscellaneous Information 1 ea NOTE XX ; Start 12/16/18 at 10:00 Glucose (Glutose) 15 gm Q15M PRN PO DECREASED GLUCOSE; Start 12/16/18 at 10:00 Glucose (Glutose) 22.5 gm Q15M PRN PO DECREASED GLUCOSE; Start 12/16/18 at 10:00 Dextrose (D50w Syringe) 25 ml Q15M PRN IV DECREASED GLUCOSE; Start 12/16/18 at 10:00 Dextrose (D50w Syringe) 50 ml Q15M PRN IV DECREASED GLUCOSE; Start 12/16/18 at 10:00 Glucagon (Glucagen) 1 mg Q15M PRN IM DECREASED GLUCOSE; Start 12/16/18 at 10:00 Glucose (Glutose) 15 gm Q15M PRN BUCCAL DECREASED GLUCOSE; Start 12/16/18 at 10:00 Carvedilol (Coreg) 3.125 mg BID NGT ; Start 12/16/18 at 21:00 JJ BRANCH Dec 16, 2018 15:03
[2018-12-16] MEDS: EPOETIN ALFA-EPBX (ESRD) 3,000 UNIT/ML VIAL SC SCH (18:37)
--- NOTE | 2018-12-16 19:00 | CONS ---
Assessment/Plan Assessment/Plan Assessment/Plan (Daily) 1. S/p Cardiopulmonary Arrest with ROSC, s/p Hypothermia protocol 2. ESRD on HD [facility] 3. acute hypoxemic respiratory failure due to cardiac arrest s/p Intubation on ventilator 4. Shock--likely cardiogenic; cannot exclude obstructive though clinical picture not consistent with massive PE. 5. Sepsis 2/2 staph bacteremia 6. HTN heart disease 7.. DM 8. severe Anemia with Hb down to 6.9- S/p 2 U PRBC on 12/12/18 Plan: pt remains intubated, Hb 9.0, BP stable, afebrile, HD ordered for saturday ,will keep pt on MWF schedule while being in hospital continue on Epogen ^6000 units SQ TIW for her anemia, Palliative care has been following to discuss goals of care will follow up Consultation Date/Type/Reason Admit Date/Time Dec 06, 2018 at 12:45 Initial Consult Date 12/06/18 Type of Consult NEPHROLOGY Requesting Provider: BOZENA PARK Date/Time of Note DATE: 12/16/18 TIME: 18:58 24 HR Interval Summary Free Text/Dictation pt remains intubated,s/p HD yesterday, BP stable,afebrile Exam/Review of Systems Exam Vitals Vital Signs Date Temp Pulse Resp B/P (MAP) Pulse Ox O2 O2 Flow FiO2 Time Delivery Rate 12/16/18 73 0 149/61 100 18:00 (90) 12/16/18 30 17:10 12/16/18 99.0 Mechanical 16:00 Ventilator Intake and Output 12/15/18 12/15/18 12/16/18 1515:00 23:00 07:00 IntakeIntake Total 778 ml 926 ml 520 ml OutputOutput Total 3400 ml BalanceBalance -2622 ml 926 ml 520 ml Exam Constitutional: non-verbal Head: normocephalic, atraumatic Eyes: nl conjunctiva, nl lids ENMT: intubated Neck: supple, non-tender Respiratory: diminished breath sounds Cardiovascular: irregular rhythm Gastrointestinal: soft, nl liver, spleen, non-tender Extremities: 1+ pitting edema, no clubbing/no cyanosis Neurological: unresponsive Skin: nl turgorConstitutional: non-verba Results Result Diagram: 12/16/18 0429 12/16/18 0429 Results 24hrs Laboratory Tests Test 12/15/18 20:26 12/16/18 00:02 12/16/18 04:29 12/16/18 04:50 Bedside Glucose 248 H 241 H White Blood Count 14.7 H Red Blood Count 2.94 L Hemoglobin 8.7 L Hematocrit 28.8 L Mean Corpuscular 98.0 Volume Mean Corpuscular 29.6 Hemoglobin Mean Corpuscular 30.2 L Hemoglobin Concen t Red Cell 15.3 H Distribution Width Platelet Count 177 Mean Platelet 10.3 Volume Immature 1.200 H Granulocytes % Neutrophils % 81.3 H Lymphocytes % 6.4 L Monocytes % 9.8 Eosinophils % 1.0 Basophils % 0.3 Nucleated Red 0.0 Blood Cells % Immature 0.170 H Granulocytes # Neutrophils # 11.9 H Lymphocytes # 0.9 Monocytes # 1.4 H Eosinophils # 0.2 Basophils # 0.1 Nucleated Red 0.0 Blood Cells # Sodium Level 141 Potassium Level 3.8 Chloride Level 102 Carbon Dioxide 28 Level Anion Gap 11 Blood Urea 47 H Nitrogen Creatinine 3.95 #H Est Glomerular 12 L Filtrat Rate mL/min Glucose Level 244 H Calcium Level 9.2 Phosphorus Level 1.5 L Magnesium Level 2.3 Lab Scanned BLOOD TRANSFUSIO Report N Test 12/16/18 05:31 12/16/18 07:57 12/16/18 11:15 12/16/18 11:58 Bedside Glucose 250 H 292 H 232 H Phenytoin 12.4 (Dilantin) Level Test 12/16/18 12:59 12/16/18 16:43 Bedside Glucose 220 215 Medications Medication Current Medications Ondansetron HCl (Zofran Inj) 4 mg Q6H PRN IV NAUSEA AND/OR VOMITING; Start 12/06/18 at 09:30 Albuterol (Proventil 0.083% (Neb)) 2.5 mg Q2H RESP THERAPY PRN NEB SHORTNESS OF BREATH; Start 12/06/18 at 09:30 Docusate Sodium (Colace) 100 mg Q12H PRN PO CONSTIPATION; Start 12/06/18 at 09:30 Magnesium Hydroxide (Milk Of Mag) 30 ml DAILY PRN PO CONSTIPATION; Start 12/06/18 at 09:30 Aspirin (Aspirin) 81 mg DAILY PO Last administered on 12/16/18 07:58; Admin Dose 81 MG; Start 12/06/18 at 10:30 Brimonidine Tartrate (Alphagan 0.2%) 1 drop DAILY BOTH EYES Last administered on 12/16/18 08:12; Admin Dose 1 DROP; Start 12/06/18 at 11:00 Calcium Acetate (Phoslo) 667 mg WITH MEALS PO Last administered on 12/16/18 16:41; Admin Dose 667 MG; Start 12/06/18 at 12:00 Docusate Sodium (Colace) 200 mg DAILY PO ; Start 12/06/18 at 10:30; Status Hold Lactulose (Enulose) 20 gm BID PO Last administered on 12/16/18 08:02; Admin Dose 20 GM; Start 12/06/18 at 21:00 Montelukast Sodium (Singulair) 10 mg HS PO ; Start 12/06/18 at 21:00; Status Hold Multivit/Ca Carb/ B Cmplx/FA/Prenat (Mariaelena-Rosas) 1 tab DAILY PO Last administered on 12/16/18 08:02; Admin Dose 1 TAB; Start 12/06/18 at 10:30 Norepinephrine 250 ml @ 1.875 mls/ hr TITRATE IV Last administered on 12/07/18 13:25; Admin Dose 56.25 MLS/HR; Start 12/06/18 at 13:00 Atropine Sulfate (Atropine (Syringe)) 1 mg PRN PRN IV prn Last administered on 12/06/18 16:49; Admin Dose 1 MG; Start 12/06/18 at 16:00 Midazolam HCl 50 ml @ 1 mls/hr TITRATE IV Last administered on 12/09/18 05:09; Admin Dose 4 MLS/HR; Start 12/06/18 at 16:30 Vancomycin HCl (Vanco Iv Per Pharmacy) VANCOMYCIN PER PHARMACY PER PROTOCOL XX ; Start 12/06/18 at 17:30 Cefepime HCl 50 ml @ 100 mls/hr Q24H IVPB Last administered on 12/15/18 20:24; Admin Dose 100 MLS/HR; Start 12/06/18 at 21:00 Levetiracetam 100 ml @ 400 mls/hr Q12 IVPB Last administered on 12/16/18 08:19; Admin Dose 400 MLS/HR; Start 12/06/18 at 21:00 Dopamine HCl/ Dextrose 250 ml @ 7.613 mls/ hr TITRATE IV Last administered on 12/09/18at 03:03; Admin Dose 11.419 MLS/HR; Start 12/06/18 at 17:30 Acetaminophen (Tylenol Supp) 650 mg Q4H PRN RI TEMP > 37C; Start 12/06/18 at 18:30 Meperidine HCl (Demerol) 12.5 mg Q4H PRN IV POST OPERATIVE SHIVERING; Start 12/06/18 at 18:30 Meperidine HCl (Demerol) 25 mg Q4H PRN IV POST OPERATIVE SHIVERING; Start 12/06/18 at 18:30 Eye Lubricant (Akwa Oint) 1 applic Q6 BOTH EYES Last administered on 12/16/18 16:46; Admin Dose 1 APPLIC; Start 12/07/18 at 00:00 Eye Lubricant (Artificial Tears Oph) 2 drop Q6 BOTH EYES Last administered on 12/16/18at 16:46; Admin Dose 2 DROP; Start 12/07/18 at 00:00 Magnesium Sulfate 50 ml @ 25 mls/hr PRN PRN IVPB IV PROTOCOL; Start 12/06/18 at 20:30 Potassium Chloride 50 ml @ 25 mls/hr PRN PRN IVPB IV PROTOCOL Last administered on 12/07/18at 08:33; Admin Dose 25 MLS/HR; Start 12/06/18 at 20:30 Heparin Sodium (Porcine) (Heparin (1000 Units/ml)) 4,000 unit AFTER DIALYSIS CATHETER ; Start 12/06/18 at 22:00 Albumin Human 100 ml @ 100 mls/hr WITH DIALYSIS PRN IV SBP <90 DURING DIALYSIS Last administered on 12/13/18 08:56; Admin Dose 100 MLS/HR; Start 12/06/18 at 22:00 Sodium Chloride (NS) -To prime the dialy... DIRECTED FOR HD PRN IV HD; Start 12/06/18 at 22:00 Phenytoin 200 mg/ Sodium Chloride 54 ml @ 112 mls/hr AM IV Last administered on 12/16/18at 09:34; Admin Dose 112 MLS/HR; Start 12/07/18 at 09:00 Phenytoin 200 mg/ Sodium Chloride 54 ml @ 112 mls/hr PC LUNCH IV Last administered on 12/16/18 13:16; Admin Dose 112 MLS/HR; Start 12/07/18 at 12:30 Phenytoin 300 mg/ Sodium Chloride 56 ml @ 112 mls/hr 2100 IV Last administered on 12/15/18 21:42; Admin Dose 112 MLS/HR; Start 12/07/18 at 21:00 Fentanyl 100 ml @ 2.5 mls/hr TITRATE IV Last administered on 12/08/18 06:27; Admin Dose 2.5 MLS/HR; Start 12/08/18 at 06:30 Diagnostic Test (Pha) (Accu-Chek) 1 ea 02 XX Last administered on 12/13/18 01:36; Admin Dose 1 EA; Start 12/09/18 at 02:00 Miscellaneous Information 1 ea NOTE XX ; Start 12/08/18 at 11:30 Glucose (Glutose) 15 gm Q15M PRN PO DECREASED GLUCOSE; Start 12/08/18 at 11:30 Glucose (Glutose) 22.5 gm Q15M PRN PO DECREASED GLUCOSE; Start 12/08/18 at 11:30 Dextrose (D50w Syringe) 25 ml Q15M PRN IV DECREASED GLUCOSE; Start 12/08/18 at 11:30 Dextrose (D50w Syringe) 50 ml Q15M PRN IV DECREASED GLUCOSE; Start 12/08/18 at 11:30 Glucagon (Glucagen) 1 mg Q15M PRN IM DECREASED GLUCOSE; Start 12/08/18 at 11:30 Glucose (Glutose) 15 gm Q15M PRN BUCCAL DECREASED GLUCOSE; Start 12/08/18 at 11 :30 Collagenase (Santyl) 1 applic DAILY TOP Last administered on 12/16/18at 08:11; Admin Dose 1 APPLIC; Start 12/10/18 at 09:00 Diagnostic Test (Pha) (Accu-Chek) 1 ea Q4 XX Last administered on 12/14/18at 08:21; Admin Dose 1 EA; Start 12/11/18 at 13:00 Acetaminophen (Tylenol Liquid) 650 mg Q6H PRN GTB MILD PAIN(1-3)OR ELEVATED TEMP Last administered on 12/16/18at 00:16; Admin Dose 650 MG; Start 12/11/18 at 20:30 Famotidine (Pepcid Iv) 20 mg Q48H IV Last administered on 12/15/18at 05:54; Admin Dose 20 MG; Start 12/13/18 at 07:00 Fluconazole/ Sodium Chloride 50 ml @ 50 mls/hr Q24H IVPB Last administered on 12/16/18at 14:09; Admin Dose 50 MLS/HR; Start 12/12/18 at 14:00 Insulin Aspart (Novolog Insulin Pen) NOVOLOG *MODERATE* ALGORITHM Q4 SC Last administered on 12/16/18at 16:45; Admin Dose 4 UNIT; Start 12/12/18 at 13:00 Metronidazole 100 ml @ 100 mls/hr Q6 IVPB Last administered on 12/16/18at 17:12; Admin Dose 100 MLS/HR; Start 12/13/18 at 12:00 Lorazepam (Ativan) 1 mg Q10MIN PRN IV SEIZURES Last administered on 12/14/18at 17:16; Admin Dose 1 MG; Start 12/13/18 at 13:30 Epoetin Man-epbx (Retacrit) 6,000 unit TuThSa@1700 SC Last administered on 12/16/18at 18:37; Admin Dose 6,000 UNIT; Start 12/16/18 at 17:00 Vancomycin HCl 250 ml @ 125 mls/hr Q96H IVPB Last administered on 12/15/18at 17:52; Admin Dose 125 MLS/HR; Start 12/15/18 at 18:00 Insulin Glargine (Lantus) 35 units DAILY@0800 SC ; Start 12/17/18 at 08:00 Miscellaneous Information 1 ea NOTE XX ; Start 12/16/18 at 10:00 Glucose (Glutose) 15 gm Q15M PRN PO DECREASED GLUCOSE; Start 12/16/18 at 10:00 Glucose (Glutose) 22.5 gm Q15M PRN PO DECREASED GLUCOSE; Start 12/16/18 at 10:00 Dextrose (D50w Syringe) 25 ml Q15M PRN IV DECREASED GLUCOSE; Start 12/16/18 at 10:00 Dextrose (D50w Syringe) 50 ml Q15M PRN IV DECREASED GLUCOSE; Start 12/16/18 at 10:00 Glucagon (Glucagen) 1 mg Q15M PRN IM DECREASED GLUCOSE; Start 12/16/18 at 10:00 Glucose (Glutose) 15 gm Q15M PRN BUCCAL DECREASED GLUCOSE; Start 12/16/18 at 10:00 Carvedilol (Coreg) 3.125 mg BID NGT ; Start 12/16/18 at 21:00 LAZ MELGAR MD Dec 16, 2018 19:00
[2018-12-16] MEDS: CEFEPIME 1GM/50 ML (PMX) 50 ML IVPB SCH (20:08)
[2018-12-16] MEDS: PHENYTOIN 300 MG in SOD CHLORIDE 0.9% 50 ML IV SCH (20:20)
[2018-12-17] VITALS (52 sets, daily range): BP systolic 79–170; BP diastolic 40–76; PULSE 63–80; RESP 0–27
[2018-12-17] MEDS: metroNIDAZOLE 500 MG/NS (PMX) 100 ML IVPB SCH ×4 (00:38→18:41)
[2018-12-17] MEDS: ARTIFICIAL TEARS 15 ML OPH BOTH EYES SCH ×4 (00:38→17:46)
[2018-12-17] MEDS: OCULAR LUBRICANT 3.5 GM OPH OINT BOTH EYES SCH ×4 (00:39→17:46)
[2018-12-17] MEDS: INSULIN ASPART [NOVOLOG] 3 ML PEN SC SCH ×6 (00:47→20:33)
[2018-12-17] MEDS: ACCU-CHEK XX SCH ×7 (00:51→20:51)
[2018-12-17] MEDS: FAMOTIDINE 20 MG INJ IV SCH (05:36)
[2018-12-17] MEDS ORDERED: hydrALAzine 20 MG INJ IV PRN (07:00)
[2018-12-17] MEDS ORDERED: hydrALAzine 20 MG INJ ONE (07:01)
[2018-12-17] MEDS: CALCIUM ACETATE 667 MG CAP PO SCH ×3 (07:35→17:12)
[2018-12-17] MEDS: INSULIN GLARGINE [LANTus] (100 UNITS/ML) SYG SC SCH (08:53)
[2018-12-17] MEDS: BRIMONIDINE 0.2% 5 ML BTL BOTH EYES SCH (08:56)
[2018-12-17] MEDS: COLLAGENASE 5 GM (UD JAR) TOP SCH (08:56)
[2018-12-17] MEDS: MULTIVIT/CA CARB/B CMPLX/FA TAB PO SCH (09:00)
[2018-12-17] MEDS: LACTULOSE 30ML CUP PO SCH ×2 (09:00→20:30)
[2018-12-17] MEDS: ASPIRIN 81 MG TAB PO SCH (09:00)
[2018-12-17] MEDS: SOD CHLORIDE 0.9% IV SCH ×2 (09:00→13:24)
[2018-12-17] MEDS: PHENYTOIN IV SCH ×2 (09:00→13:24)
--- NOTE | 2018-12-17 09:08 | PN ---
Date/Time of Note Date/Time of Note DATE: 12/17/18 TIME: 09:06 Assessment/Plan VTE Prophylaxis Risk score (from Ns)>0 risk: 10 SCD applied (from Nsg): Yes Pharmacological prophylaxis: other Lines/Catheters IV Catheter Type (from Nrsg): Central Line Central line still needed: Yes Urinary Cath still in place: No Assessment/Plan Assessment/Plan 1. Sepsis secondary to staph bacteremia and aspiration - WBC remains elevated but afebrile. Last fever yesterday 0100 - ID on board and appreciate recommendations. Continue on current antibiotics - Blood cultures noted with repeat negative 2. Anemia - blood loss and renal disease - continue on Epogen - H/H remains stable and no need for transfusions at this time 3. s/p Cardiac arrest with ROSC - s/p hypothermia protocol - Patient initially with NSVT and given prolonged QT and placement on Amiodarone went into torsades then coded. Patient coded another 3 times total secondary to PEA arrest with ROSC - Cardiology on board and appreciate recommendations. may need cardiac cath if shows signs of neurological recovery 4. Chronic blindness - Chronic left-sided blindness secondary to diabetic retinopathy, patient also has moderate to severe right-sided blindness secondary to diabetic retinopathy 5. ?Arrhythmia, NSVT - Patient has ? afib and may have had afib with aberrancy but initial event was not captured - noted on Coumadin on med rec but INR normal at time of presentation. Will need to touch base with fam vs patient when she recovers on why she takes Coumadin 6. DM - will continue adjusting Lantus for better sugar control - improved after tube feeding changed 7. ESRD on HD - Nephrology, Dr. Reddy, on board and appreciate consultation. T/T/S as outpatient but MWF while inpatient - HD today 8. h/o CVA - continue current medications 9. HTN - no pressor support required - continue on BB and PRN 10. Disposition - Discussion held with sister at bedside. Would like to continue FULL CODE status. Consents signed for Trach/PEG - CM on board for placement - Palliative consultation appreciated. >40 minutes of critical care time spent with patient Result Diagram: 12/17/18 6734 12/17/18 0400 Results 24hrs Laboratory Tests Test 12/16/18 11:15 12/16/18 11:58 12/16/18 12:59 4/16/19 16:43 Bedside Glucose 232 H 220 215 Phenytoin (Dilantin) 12.4 Level Test 12/16/18 20:12 12/17/18 00:39 12/17/18 04:00 12/17/18 05:38 Bedside Glucose 192 172 173 White Blood Count 17.7 #H Red Blood Count 1.78 #L Hemoglobin 5.4 #*L Hematocrit 17.6 #L Mean Corpuscular 98.9 Volume Mean Corpuscular 30.3 Hemoglobin Mean Corpuscular 30.7 L Hemoglobin Concent Red Cell 15.0 H Distribution Width Platelet Count 238 # Mean Platelet Volume 10.9 H Immature 1.600 H Granulocytes % Neutrophils % 80.9 H Segmented 78 H Neutrophils % (Manual) Band Neutrophils % 3 (Manual) Lymphocytes % 7.2 L Lymphocytes % 6 L (Manual) Monocytes % 8.7 Monocytes % (Manual) 8 Eosinophils % 1.3 Eosinophils % 3 (Manual) Basophils % 0.3 Metamyelocytes % 1 H (manual) Myelocytes % 1 H (Manual) Nucleated Red Blood 0.0 Cells % Immature 0.290 H Granulocytes # Neutrophils # 14.3 H Neutrophils # 13.9 H (Manual) Band Neutrophils # 0.5 Lymphocytes (Manual) 1.0 Lymphocytes # 1.3 Monocytes # 1.5 H Monocytes # (Manual) 1.4 H Eosinophils # 0.2 Basophils # 0.1 Metamyelocytes # 0.1 H Myelocytes # 0.1 H Nucleated Red Blood 0.0 Cells # Platelet Estimate NORMAL Polychromasia 3+ Hypochromasia 3+ Poikilocytosis 1+ Anisocytosis 1+ Microcytosis 2+ Spherocytes 1+ Tear Drop Cells 1+ Ovalocytes 1+ Sodium Level 139 Potassium Level 4.6 Chloride Level 102 Carbon Dioxide Level 24 Anion Gap 13 Blood Urea Nitrogen 75 H Creatinine 5.04 H Est Glomerular 9 L Filtrat Rate mL/min Glucose Level 155 Calcium Level 9.4 Magnesium Level 2.5 Total Bilirubin Direct Bilirubin Indirect Bilirubin Aspartate Amino 50 H Transf (AST/SGOT) Alanine 25 Aminotransferase (AL T/SGPT) Alkaline Phosphatase 183 H Total Protein 7.3 Albumin 3.4 Globulin 3.90 H Albumin/Globulin 0.87 Ratio Test 12/17/18 07:38 12/17/18 08:49 White Blood Count 14.4 H Red Blood Count 3.17 #L Hemoglobin 9.5 #L Hematocrit 30.8 #L Mean Corpuscular 97.2 Volume Mean Corpuscular 30.0 Hemoglobin Mean Corpuscular 30.8 L Hemoglobin Concent Red Cell 15.1 H Distribution Width Platelet Count 184 # Mean Platelet Volume 10.5 H Immature 1.800 H Granulocytes % Neutrophils % 81.3 H Lymphocytes % 7.3 L Monocytes % 8.2 Eosinophils % 1.1 Basophils % 0.3 Nucleated Red Blood 0.0 Cells % Immature 0.260 H Granulocytes # Neutrophils # 11.7 H Lymphocytes # 1.1 Monocytes # 1.2 H Eosinophils # 0.2 Basophils # 0.0 Nucleated Red Blood 0.0 Cells # Bedside Glucose 193 Subjective 24 Hr Interval Summary Free Text/Dictation Patient remains intubated and non responsive. No acute overnight events. Family agreeable to PEG/trach. Remains full code. Exam/Review of Systems Exam Vitals Vital Signs Date Temp Pulse Resp B/P (MAP) Pulse Ox O2 O2 Flow FiO2 Time Delivery Rate 12/17/18 73 17 147/55 100 09:00 (85) 12/17/18 99.2 Mechanical 08:00 Ventilator 12/17/18 30 08:00 Intake and Output 12/16/18 12/16/18 12/17/18 1515:00 23:00 07:00 IntakeIntake Total 678 ml 726 ml 470 ml OutputOutput Total 10 ml BalanceBalance 668 ml 726 ml 470 ml Exam General: Patient is intubated and nonresponsive. no acute distress Eyes: EOMI, left pupil is alfredo out chronically Neck: Supple, nontender, midline Lungs: Coarse to auscultation bilaterally. no wheezing Cardiovascular: S1, S2, regular rate and rhythm, no obvious murmurs Gastrointestinal: soft, non-tender to palpation, protuberant, bowel sounds heard. Neurological: No purposeful movement, occasional cough, feet move when touched Skin: No new skin lesions Results Results 24hrs Laboratory Tests Test 12/16/18 11:15 12/16/18 11:58 12/16/18 12:59 12/16/18 16:43 Bedside Glucose 232 H 220 215 Phenytoin (Dilantin) 12.4 Level Test 12/16/18 20:12 12/17/18 00:39 12/17/18 04:00 12/17/18 05:38 Bedside Glucose 192 172 173 White Blood Count 17.7 #H Red Blood Count 1.78 #L Hemoglobin 5.4 #*L Hematocrit 17.6 #L Mean Corpuscular 98.9 Volume Mean Corpuscular 30.3 Hemoglobin Mean Corpuscular 30.7 L Hemoglobin Concent Red Cell 15.0 H Distribution Width Platelet Count 238 # Mean Platelet Volume 10.9 H Immature 1.600 H Granulocytes % Neutrophils % 80.9 H Segmented 78 H Neutrophils % (Manual) Band Neutrophils % 3 (Manual) Lymphocytes % 7.2 L Lymphocytes % 6 L (Manual) Monocytes % 8.7 Monocytes % (Manual) 8 Eosinophils % 1.3 Eosinophils % 3 (Manual) Basophils % 0.3 Metamyelocytes % 1 H (manual) Myelocytes % 1 H (Manual) Nucleated Red Blood 0.0 Cells % Immature 0.290 H Granulocytes # Neutrophils # 14.3 H Neutrophils # 13.9 H (Manual) Band Neutrophils # 0.5 Lymphocytes (Manual) 1.0 Lymphocytes # 1.3 Monocytes # 1.5 H Monocytes # (Manual) 1.4 H Eosinophils # 0.2 Basophils # 0.1 Metamyelocytes # 0.1 H Myelocytes # 0.1 H Nucleated Red Blood 0.0 Cells # Platelet Estimate NORMAL Polychromasia 3+ Hypochromasia 3+ Poikilocytosis 1+ Anisocytosis 1+ Microcytosis 2+ Spherocytes 1+ Tear Drop Cells 1+ Ovalocytes 1+ Sodium Level 139 Potassium Level 4.6 Chloride Level 102 Carbon Dioxide Level 24 Anion Gap 13 Blood Urea Nitrogen 75 H Creatinine 5.04 H Est Glomerular 9 L Filtrat Rate mL/min Glucose Level 155 Calcium Level 9.4 Magnesium Level 2.5 Total Bilirubin Direct Bilirubin Indirect Bilirubin Aspartate Amino 50 H Transf (AST/SGOT) Alanine 25 Aminotransferase (AL T/SGPT) Alkaline Phosphatase 183 H Total Protein 7.3 Albumin 3.4 Globulin 3.90 H Albumin/Globulin 0.87 Ratio Test 12/17/18 07:38 12/17/18 08:49 White Blood Count 14.4 H Red Blood Count 3.17 #L Hemoglobin 9.5 #L Hematocrit 30.8 #L Mean Corpuscular 97.2 Volume Mean Corpuscular 30.0 Hemoglobin Mean Corpuscular 30.8 L Hemoglobin Concent Red Cell 15.1 H Distribution Width Platelet Count 184 # Mean Platelet Volume 10.5 H Immature 1.800 H Granulocytes % Neutrophils % 81.3 H Lymphocytes % 7.3 L Monocytes % 8.2 Eosinophils % 1.1 Basophils % 0.3 Nucleated Red Blood 0.0 Cells % Immature 0.260 H Granulocytes # Neutrophils # 11.7 H Lymphocytes # 1.1 Monocytes # 1.2 H Eosinophils # 0.2 Basophils # 0.0 Nucleated Red Blood 0.0 Cells # Bedside Glucose 193 Medications Medication Current Medications Ondansetron HCl (Zofran Inj) 4 mg Q6H PRN IV NAUSEA AND/OR VOMITING; Start 12/06/18 at 09:30 Albuterol (Proventil 0.083% (Neb)) 2.5 mg Q2H RESP THERAPY PRN NEB SHORTNESS OF BREATH; Start 12/06/18 at 09:30 Docusate Sodium (Colace) 100 mg Q12H PRN PO CONSTIPATION; Start 12/06/18 at 09:30 Magnesium Hydroxide (Milk Of Mag) 30 ml DAILY PRN PO CONSTIPATION; Start 12/06/18 at 09:30 Aspirin (Aspirin) 81 mg DAILY PO Last administered on 12/16/18at 07:58; Admin Dose 81 MG; Start 12/06/18 at 10:30 Brimonidine Tartrate (Alphagan 0.2%) 1 drop DAILY BOTH EYES Last administered on 12/17/18at 08:56; Admin Dose 1 DROP; Start 12/06/18 at 11:00 Calcium Acetate (Phoslo) 667 mg WITH MEALS PO Last administered on 12/16/18at 16:41; Admin Dose 667 MG; Start 12/06/18 at 12:00 Docusate Sodium (Colace) 200 mg DAILY PO ; Start 12/06/18 at 10:30; Status Hold Lactulose (Enulose) 20 gm BID PO Last administered on 12/16/18at 08:02; Admin Dose 20 GM; Start 12/06/18 at 21:00 Montelukast Sodium (Singulair) 10 mg HS PO ; Start 12/06/18 at 21:00; Status Hold Multivit/Ca Carb/ B Cmplx/FA/Prenat (Mariaelena-Rosas) 1 tab DAILY PO Last administered on 12/16/18at 08:02; Admin Dose 1 TAB; Start 12/06/18 at 10:30 Norepinephrine 250 ml @ 1.875 mls/ hr TITRATE IV Last administered on 12/07/18 13:25; Admin Dose 56.25 MLS/HR; Start 12/06/18 at 13:00 Atropine Sulfate (Atropine (Syringe)) 1 mg PRN PRN IV prn Last administered on 12/06/18 16:49; Admin Dose 1 MG; Start 12/06/18 at 16:00 Midazolam HCl 50 ml @ 1 mls/hr TITRATE IV Last administered on 12/09/18 05:09; Admin Dose 4 MLS/HR; Start 12/06/18 at 16:30 Vancomycin HCl (Vanco Iv Per Pharmacy) VANCOMYCIN PER PHARMACY PER PROTOCOL XX ; Start 12/06/18 at 17:30 Cefepime HCl 50 ml @ 100 mls/hr Q24H IVPB Last administered on 12/16/18 20:08; Admin Dose 100 MLS/HR; Start 12/06/18 at 21:00 Levetiracetam 100 ml @ 400 mls/hr Q12 IVPB Last administered on 12/16/18 20:08; Admin Dose 400 MLS/HR; Start 12/06/18 at 21:00 Dopamine HCl/ Dextrose 250 ml @ 7.613 mls/ hr TITRATE IV Last administered on 12/09/18 03:03; Admin Dose 11.419 MLS/HR; Start 12/06/18 at 17:30 Acetaminophen (Tylenol Supp) 650 mg Q4H PRN [place] TEMP > 37C; Start 12/06/18 at 18:30 Meperidine HCl (Demerol) 12.5 mg Q4H PRN IV POST OPERATIVE SHIVERING; Start 12/06/18 at 18:30 Meperidine HCl (Demerol) 25 mg Q4H PRN IV POST OPERATIVE SHIVERING; Start 12/06/18 at 18:30 Eye Lubricant (Akwa Oint) 1 applic Q6 BOTH EYES Last administered on 12/17/18 05:34; Admin Dose 1 APPLIC; Start 12/07/18 at 00:00 Eye Lubricant (Artificial Tears Oph) 2 drop Q6 BOTH EYES Last administered on 12/17/18 05:34; Admin Dose 2 DROP; Start 12/07/18 at 00:00 Magnesium Sulfate 50 ml @ 25 mls/hr PRN PRN IVPB IV PROTOCOL; Start 12/06/18 at 20:30 Potassium Chloride 50 ml @ 25 mls/hr PRN PRN IVPB IV PROTOCOL Last administered on 12/07/18at 08:33; Admin Dose 25 MLS/HR; Start 12/06/18 at 20:30 Heparin Sodium (Porcine) (Heparin (1000 Units/ml)) 4,000 unit AFTER DIALYSIS CATHETER ; Start 12/06/18 at 22:00 Albumin Human 100 ml @ 100 mls/hr WITH DIALYSIS PRN IV SBP <90 DURING DIALYSIS Last administered on 12/13/18at 08:56; Admin Dose 100 MLS/HR; Start 12/06/18 at 22:00 Sodium Chloride (NS) -To prime the dialy... DIRECTED FOR HD PRN IV HD; Start 12/06/18 at 22:00 Phenytoin 200 mg/ Sodium Chloride 54 ml @ 112 mls/hr AM IV Last administered on 12/16/18at 09:34; Admin Dose 112 MLS/HR; Start 12/07/18 at 09:00 Phenytoin 200 mg/ Sodium Chloride 54 ml @ 112 mls/hr PC LUNCH IV Last admini stered on 12/16/18at 13:16; Admin Dose 112 MLS/HR; Start 12/07/18 at 12:30 Phenytoin 300 mg/ Sodium Chloride 56 ml @ 112 mls/hr 2100 IV Last administered on 12/16/18at 20:20; Admin Dose 112 MLS/HR; Start 12/07/18 at 21:00 Fentanyl 100 ml @ 2.5 mls/hr TITRATE IV Last administered on 12/08/18 06:27; A dmin Dose 2.5 MLS/HR; Start 12/08/18 at 06:30 Diagnostic Test (Pha) (Accu-Chek) 1 ea 02 XX Last administered on 12/13/18at 01:36; Admin Dose 1 EA; Start 12/09/18 at 02:00 Miscellaneous Information 1 ea NOTE XX ; Start 12/08/18 at 11:30 Glucose (Glutose) 15 gm Q15M PRN PO DECREASED GLUCOSE; Start 12/08/18 at 11:30 Glucose (Glutose) 22.5 gm Q15M PRN PO DECREASED GLUCOSE; Start 12/08/18 at 11:30 Dextrose (D50w Syringe) 25 ml Q15M PRN IV DECREASED GLUCOSE; Start 12/08/18 at 11:30 Dextrose (D50w Syringe) 50 ml Q15M PRN IV DECREASED GLUCOSE; Start 12/08/18 at 11:30 Glucagon (Glucagen) 1 mg Q15M PRN IM DECREASED GLUCOSE; Start 12/08/18 at 11:30 Glucose (Glutose) 15 gm Q15M PRN BUCCAL DECREASED GLUCOSE; Start 12/08/18 at 11:30 Collagenase (Santyl) 1 applic DAILY TOP Last administered on 12/17/18 08:56; Admin Dose 1 APPLIC; Start 12/10/18 at 09:00 Diagnostic Test (Pha) (Accu-Chek) 1 ea Q4 XX Last administered on 12/14/18 08:21; Admin Dose 1 EA; Start 12/11/18 at 13:00 Acetaminophen (Tylenol Liquid) 650 mg Q6H PRN GTB MILD PAIN(1-3)OR ELEVATED TEMP Last administered on 12/16/18 00:16; Admin Dose 650 MG; Start 12/11/18 at 20:30 Famotidine (Pepcid Iv) 20 mg Q48H IV Last administered on 12/17/18 05:36; Admin Dose 20 MG; Start 12/13/18 at 07:00 Fluconazole/ Sodium Chloride 50 ml @ 50 mls/hr Q24H IVPB Last administered on 12/16/18 14:09; Admin Dose 50 MLS/HR; Start 12/12/18 at 14:00 Insulin Aspart (Novolog Insulin Pen) NOVOLOG *MODERATE* ALGORITHM Q4 SC Last administered on 12/17/18 08:54; Admin Dose 4 UNIT; Start 12/12/18 at 13:00 Metronidazole 100 ml @ 100 mls/hr Q6 IVPB Last administered on 12/17/18 05:34; Admin Dose 100 MLS/HR; Start 12/13/18 at 12:00 Lorazepam (Ativan) 1 mg Q10MIN PRN IV SEIZURES Last administered on 12/14/18 17:16; Admin Dose 1 MG; Start 12/13/18 at 13:30 Epoetin Man-epbx (Retacrit) 6,000 unit TuThSa@1700 SC Last administered on 12/16/18 18:37; Admin Dose 6,000 UNIT; Start 12/16/18 at 17:00 Vancomycin HCl 250 ml @ 125 mls/hr Q96H IVPB Last administered on 12/15/18at 17:52; Admin Dose 125 MLS/HR; Start 12/15/18 at 18:00 Insulin Glargine (Lantus) 35 units DAILY@0800 SC Last administered on 12/17/18at 08:53; Admin Dose 35 UNITS; Start 12/17/18 at 08:00 Miscellaneous Information 1 ea NOTE XX ; Start 12/16/18 at 10:00 Glucose (Glutose) 15 gm Q15M PRN PO DECREASED GLUCOSE; Start 12/16/18 at 10:00 Glucose (Glutose) 22.5 gm Q15M PRN PO DECREASED GLUCOSE; Start 12/16/18 at 10:00 Dextrose (D50w Syringe) 25 ml Q15M PRN IV DECREASED GLUCOSE; Start 12/16/18 at 10:00 Dextrose (D50w Syringe) 50 ml Q15M PRN IV DECREASED GLUCOSE; Start 12/16/18 at 10:00 Glucagon (Glucagen) 1 mg Q15M PRN IM DECREASED GLUCOSE; Start 12/16/18 at 10:00 Glucose (Glutose) 15 gm Q15M PRN BUCCAL DECREASED GLUCOSE; Start 12/16/18 at 10:00 Carvedilol (Coreg) 3.125 mg BID NGT Last administered on 12/16/18at 20:08; Admin Dose 3.125 MG; Start 12/16/18 at 21:00 Hydralazine HCl (Apresoline) 10 mg Q4H PRN IV bp Last administered on 12/17/18at 07:03; Admin Dose 10 MG; Start 12/17/18 at 07:00 BEAN BEST MD Dec 17, 2018 09:08
--- NOTE | 2018-12-17 09:12 | CONS ---
Assessment/Plan Assessment/Plan Assessment/Plan (Daily) Assessment and recommendations; 1. Patient status post cardiac arrest, status post hypothermia protocol with persistently extremely poor mental status. 2. Bilateral pneumonia with significant radiological improvement. 3. C. difficile colitis. 4. End-stage renal disease, on hemodialysis. 5. Anemia. Status post blood transfusion. 6. Mild thrombocytopenia. 7. Stable seizure disorder. Continue current supportive care. Patient's family still has not decided about further plan of care regarding CODE STATUS versus possible tracheostomy. Prognosis remains extremely poor. Consultation Date/Type/Reason Admit Date/Time Dec 06, 2018 at 12:45 Initial Consult Date 12/06/18 Type of Consult Pulmonary/critical care Requesting Provider: BOZENA PARK Date/Time of Note DATE: 12/17/18 TIME: 09:10 24 HR Interval Summary Free Text/Dictation Patient's condition remains critical. Remains profoundly unresponsive. Patient however has remained hemodynamically stable. General exam; middle-aged female, orally intubated, unresponsive, currently in no distress. Exam/Review of Systems Exam Vitals Vital Signs Date Temp Pulse Resp B/P (MAP) Pulse Ox O2 O2 Flow FiO2 Time Delivery Rate 12/17/18 73 17 147/55 100 09:00 (85) 12/17/18 99.2 Mechanical 08:00 Ventilator 12/17/18 30 08:00 Intake and Output 12/16/18 12/16/18 12/17/18 1515:00 23:00 07:00 IntakeIntake Total 678 ml 726 ml 470 ml OutputOutput Total 10 ml BalanceBalance 668 ml 726 ml 470 ml Exam H EENT exam; supple neck, there is facial plethora. Patient has fair dentition. Orally intubated. No neck masses. Bilateral subconjunctival edema is present. There is a left corneal opacity. Chest exam; diminished but clear breath sounds. S1-S2 audible, no murmurs. Regular rhythm. Abdomen exam; soft, protuberant. No organomegaly. Bowel sounds audible. Extremity exam; trace generalized edema. FACILITY SUPERVISOR exam; patient is unresponsive. Results Result Diagram: 12/17/18 0738 12/17/18 0400 Results 24hrs Laboratory Tests Test 12/16/18 11:15 12/16/18 11:58 12/16/18 12:59 4/16/19 16:43 Bedside Glucose 232 H 220 215 Phenytoin (Dilantin) 12.4 Level Test 12/16/18 20:12 12/17/18 00:39 12/17/18 04:00 12/17/18 05:38 Bedside Glucose 192 172 173 White Blood Count 17.7 #H Red Blood Count 1.78 #L Hemoglobin 5.4 #*L Hematocrit 17.6 #L Mean Corpuscular 98.9 Volume Mean Corpuscular 30.3 Hemoglobin Mean Corpuscular 30.7 L Hemoglobin Concent Red Cell 15.0 H Distribution Width Platelet Count 238 # Mean Platelet Volume 10.9 H Immature 1.600 H Granulocytes % Neutrophils % 80.9 H Segmented 78 H Neutrophils % (Manual) Band Neutrophils % 3 (Manual) Lymphocytes % 7.2 L Lymphocytes % 6 L (Manual) Monocytes % 8.7 Monocytes % (Manual) 8 Eosinophils % 1.3 Eosinophils % 3 (Manual) Basophils % 0.3 Metamyelocytes % 1 H (manual) Myelocytes % 1 H (Manual) Nucleated Red Blood 0.0 Cells % Immature 0.290 H Granulocytes # Neutrophils # 14.3 H Neutrophils # 13.9 H (Manual) Band Neutrophils # 0.5 Lymphocytes (Manual) 1.0 Lymphocytes # 1.3 Monocytes # 1.5 H Monocytes # (Manual) 1.4 H Eosinophils # 0.2 Basophils # 0.1 Metamyelocytes # 0.1 H Myelocytes # 0.1 H Nucleated Red Blood 0.0 Cells # Platelet Estimate NORMAL Polychromasia 3+ Hypochromasia 3+ Poikilocytosis 1+ Anisocytosis 1+ Microcytosis 2+ Spherocytes 1+ Tear Drop Cells 1+ Ovalocytes 1+ Sodium Level 139 Potassium Level 4.6 Chloride Level 102 Carbon Dioxide Level 24 Anion Gap 13 Blood Urea Nitrogen 75 H Creatinine 5.04 H Est Glomerular 9 L Filtrat Rate mL/min Glucose Level 155 Calcium Level 9.4 Magnesium Level 2.5 Total Bilirubin Direct Bilirubin Indirect Bilirubin Aspartate Amino 50 H Transf (AST/SGOT) Alanine 25 Aminotransferase (AL T/SGPT) Alkaline Phosphatase 183 H Total Protein 7.3 Albumin 3.4 Globulin 3.90 H Albumin/Globulin 0.87 Ratio Test 12/17/18 07:38 12/17/18 08:49 White Blood Count 14.4 H Red Blood Count 3.17 #L Hemoglobin 9.5 #L Hematocrit 30.8 #L Mean Corpuscular 97.2 Volume Mean Corpuscular 30.0 Hemoglobin Mean Corpuscular 30.8 L Hemoglobin Concent Red Cell 15.1 H Distribution Width Platelet Count 184 # Mean Platelet Volume 10.5 H Immature 1.800 H Granulocytes % Neutrophils % 81.3 H Lymphocytes % 7.3 L Monocytes % 8.2 Eosinophils % 1.1 Basophils % 0.3 Nucleated Red Blood 0.0 Cells % Immature 0.260 H Granulocytes # Neutrophils # 11.7 H Lymphocytes # 1.1 Monocytes # 1.2 H Eosinophils # 0.2 Basophils # 0.0 Nucleated Red Blood 0.0 Cells # Bedside Glucose 193 Medications Medication Current Medications Ondansetron HCl (Zofran Inj) 4 mg Q6H PRN IV NAUSEA AND/OR VOMITING; Start 12/06/18 at 09:30 Albuterol (Proventil 0.083% (Neb)) 2.5 mg Q2H RESP THERAPY PRN NEB SHORTNESS OF BREATH; Start 12/06/18 at 09:30 Docusate Sodium (Colace) 100 mg Q12H PRN PO CONSTIPATION; Start 12/06/18 at 09:30 Magnesium Hydroxide (Milk Of Mag) 30 ml DAILY PRN PO CONSTIPATION; Start 12/06/18 at 09:30 Aspirin (Aspirin) 81 mg DAILY PO Last administered on 12/16/18at 07:58; Admin Dose 81 MG; Start 12/06/18 at 10:30 Brimonidine Tartrate (Alphagan 0.2%) 1 drop DAILY BOTH EYES Last administered on 12/17/18at 08:56; Admin Dose 1 DROP; Start 12/06/18 at 11:00 Calcium Acetate (Phoslo) 667 mg WITH MEALS PO Last administered on 12/16/18at 16:41; Admin Dose 667 MG; Start 12/06/18 at 12:00 Docusate Sodium (Colace) 200 mg DAILY PO ; Start 12/06/18 at 10:30; Status Hold Lactulose (Enulose) 20 gm BID PO Last administered on 12/16/18at 08:02; Admin Dose 20 GM; Start 12/06/18 at 21:00 Montelukast Sodium (Singulair) 10 mg HS PO ; Start 12/06/18 at 21:00; Status Hold Multivit/Ca Carb/ B Cmplx/FA/Prenat (Mariaelena-Rosas) 1 tab DAILY PO Last administe red on 12/16/18 08:02; Admin Dose 1 TAB; Start 12/06/18 at 10:30 Norepinephrine 250 ml @ 1.875 mls/ hr TITRATE IV Last administered on 12/07/18 13:25; Admin Dose 56.25 MLS/HR; Start 12/06/18 at 13:00 Atropine Sulfate (Atropine (Syringe)) 1 mg PRN PRN IV prn Last administered on 12/06/18 16:49; Admin Dose 1 MG; Start 12/06/18 at 16:00 Midazolam HCl 50 ml @ 1 mls/hr TITRATE IV Last administered on 12/09/18 05:09; Admin Dose 4 MLS/HR; Start 12/06/18 at 16:30 Vancomycin HCl (Vanco Iv Per Pharmacy) VANCOMYCIN PER PHARMACY PER PROTOCOL XX ; Start 12/06/18 at 17:30 Cefepime HCl 50 ml @ 100 mls/hr Q24H IVPB Last administered on 12/16/18 20:08; Admin Dose 100 MLS/HR; Start 12/06/18 at 21:00 Levetiracetam 100 ml @ 400 mls/hr Q12 IVPB Last administered on 12/16/18 20:08; Admin Dose 400 MLS/HR; Start 12/06/18 at 21:00 Dopamine HCl/ Dextrose 250 ml @ 7.613 mls/ hr TITRATE IV Last administered on 12/09/18 03:03; Admin Dose 11.419 MLS/HR; Start 12/06/18 at 17:30 Acetaminophen (Tylenol Supp) 650 mg Q4H PRN [place] TEMP > 37C; Start 12/06/18 at 18:30 Meperidine HCl (Demerol) 12.5 mg Q4H PRN IV POST OPERATIVE SHIVERING; Start 12/06/18 at 18:30 Meperidine HCl (Demerol) 25 mg Q4H PRN IV POST OPERATIVE SHIVERING; Start 12/06/18 at 18:30 Eye Lubricant (Akwa Oint) 1 applic Q6 BOTH EYES Last administered on 12/17/18 05:34; Admin Dose 1 APPLIC; Start 12/07/18 at 00:00 Eye Lubricant (Artificial Tears Oph) 2 drop Q6 BOTH EYES Last administered on 12/17/18 05:34; Admin Dose 2 DROP; Start 12/07/18 at 00:00 Magnesium Sulfate 50 ml @ 25 mls/hr PRN PRN IVPB IV PROTOCOL; Start 12/06/18 at 20:30 Potassium Chloride 50 ml @ 25 mls/hr PRN PRN IVPB IV PROTOCOL Last administered on 12/07/18 08:33; Admin Dose 25 MLS/HR; Start 12/06/18 at 20:30 Heparin Sodium (Porcine) (Heparin (1000 Units/ml)) 4,000 unit AFTER DIALYSIS CATHETER ; Start 12/06/18 at 22:00 Albumin Human 100 ml @ 100 mls/hr WITH DIALYSIS PRN IV SBP <90 DURING DIALYSIS Last administered on 12/13/18 08:56; Admin Dose 100 MLS/HR; Start 12/06/18 at 22:00 Sodium Chloride (NS) -To prime the dialy... DIRECTED FOR HD PRN IV HD; Start 12/06/18 at 22:00 Phenytoin 200 mg/ Sodium Chloride 54 ml @ 112 mls/hr AM IV Last administered on 12/16/18 09:34; Admin Dose 112 MLS/HR; Start 12/07/18 at 09:00 Phenytoin 200 mg/ Sodium Chloride 54 ml @ 112 mls/hr PC LUNCH IV Last administered on 12/16/18at 13:16; Admin Dose 112 MLS/HR; Start 12/07/18 at 12:30 Phenytoin 300 mg/ Sodium Chloride 56 ml @ 112 mls/hr 2100 IV Last administered on 12/16/18at 20:20; Admin Dose 112 MLS/HR; Start 12/07/18 at 21:00 Fentanyl 100 ml @ 2.5 mls/hr TITRATE IV Last administered on 12/08/18at 06:27; Admin Dose 2.5 MLS/HR; Start 12/08/18 at 06:30 Diagnostic Test (Pha) (Accu-Chek) 1 ea 02 XX Last administered on 12/13/18at 01:36; Admin Dose 1 EA; Start 12/09/18 at 02:00 Miscellaneous Information 1 ea NOTE XX ; Start 12/08/18 at 11:30 Glucose (Glutose) 15 gm Q15M PRN PO DECREASED GLUCOSE; Start 12/08/18 at 11:30 Glucose (Glutose) 22.5 gm Q15M PRN PO DECREASED GLUCOSE; Start 12/08/18 at 11:30 Dextrose (D50w Syringe) 25 ml Q15M PRN IV DECREASED GLUCOSE; Start 12/08/18 at 11:30 Dextrose (D50w Syringe) 50 ml Q15M PRN IV DECREASED GLUCOSE; Start 12/08/18 at 11:30 Glucagon (Glucagen) 1 mg Q15M PRN IM DECREASED GLUCOSE; Start 12/08/18 at 11:30 Glucose (Glutose) 15 gm Q15M PRN BUCCAL DECREASED GLUCOSE; Start 12/08/18 at 11:30 Collagenase (Santyl) 1 applic DAILY TOP Last administered on 12/17/18 08:56; Admin Dose 1 APPLIC; Start 12/10/18 at 09:00 Diagnostic Test (Pha) (Accu-Chek) 1 ea Q4 XX Last administered on 12/14/18 08:21; Admin Dose 1 EA; Start 12/11/18 at 13:00 Acetaminophen (Tylenol Liquid) 650 mg Q6H PRN GTB MILD PAIN(1-3)OR ELEVATED TEMP Last administered on 12/16/18at 00:16; Admin Dose 650 MG; Start 12/11/18 at 20:30 Famotidine (Pepcid Iv) 20 mg Q48H IV Last administered on 12/17/18 05:36; Admin Dose 20 MG; Start 12/13/18 at 07:00 Fluconazole/ Sodium Chloride 50 ml @ 50 mls/hr Q24H IVPB Last administered on 12/16/18 14:09; Admin Dose 50 MLS/HR; Start 12/12/18 at 14:00 Insulin Aspart (Novolog Insulin Pen) NOVOLOG *MODERATE* ALGORITHM Q4 SC Last administered on 12/17/18 08:54; Admin Dose 4 UNIT; Start 12/12/18 at 13:00 Metronidazole 100 ml @ 100 mls/hr Q6 IVPB Last administered on 12/17/18 05:34; Admin Dose 100 MLS/HR; Start 12/13/18 at 12:00 Lorazepam (Ativan) 1 mg Q10MIN PRN IV SEIZURES Last administered on 12/14/18 17:16; Admin Dose 1 MG; Start 12/13/18 at 13:30 Epoetin Man-epbx (Retacrit) 6,000 unit TuThSa@1700 SC Last administered on 12/16/18at 18:37; Admin Dose 6,000 UNIT; Start 12/16/18 at 17:00 Vancomycin HCl 250 ml @ 125 mls/hr Q96H IVPB Last administered on 12/15/18at 17:52; Admin Dose 125 MLS/HR; Start 12/15/18 at 18:00 Insulin Glargine (Lantus) 35 units DAILY@0800 SC Last administered on 12/17/18at 08:53; Admin Dose 35 UNITS; Start 12/17/18 at 08:00 Miscellaneous Information 1 ea NOTE XX ; Start 12/16/18 at 10:00 Glucose (Glutose) 15 gm Q15M PRN PO DECREASED GLUCOSE; Start 12/16/18 at 10:00 Glucose (Glutose) 22.5 gm Q15M PRN PO DECREASED GLUCOSE; Start 12/16/18 at 10:00 Dextrose (D50w Syringe) 25 ml Q15M PRN IV DECREASED GLUCOSE; Start 12/16/18 at 10:00 Dextrose (D50w Syringe) 50 ml Q15M PRN IV DECREASED GLUCOSE; Start 12/16/18 at 10:00 Glucagon (Glucagen) 1 mg Q15M PRN IM DECREASED GLUCOSE; Start 12/16/18 at 10:00 Glucose (Glutose) 15 gm Q15M PRN BUCCAL DECREASED GLUCOSE; Start 12/16/18 at 10:00 Carvedilol (Coreg) 3.125 mg BID NGT Last administered on 12/16/18at 20:08; Admin Dose 3.125 MG; Start 12/16/18 at 21:00 Hydralazine HCl (Apresoline) 10 mg Q4H PRN IV bp Last administered on 12/17/18at 07:03; Admin Dose 10 MG; Start 12/17/18 at 07:00 DINESH SAVAGE Dec 17, 2018 09:12
--- NOTE | 2018-12-17 09:35 | CONS ---
Assessment/Plan Assessment/Plan Assessment/Plan (Daily) 1. S/p Cardiopulmonary Arrest with ROSC, s/p Hypothermia protocol 2. ESRD on HD [facility] 3. acute hypoxemic respiratory failure due to cardiac arrest s/p Intubation on ventilator 4. Shock--likely cardiogenic; cannot exclude obstructive though clinical picture not consistent with massive PE. 5. Sepsis 2/2 staph bacteremia 6. HTN heart disease 7.. DM 8. severe Anemia with Hb down to 6.9- S/p 2 U PRBC on 12/12/18 Plan: pt remains intubated, Hb 9.5, BP stable, afebrile -HD ordered for saturday ,will keep pt on MWF schedule while being in hospital continue on Epogen ^6000 units SQ TIW for her anemia, Palliative care has been following to discuss goals of care will follow up Patient is seen in collaboration with Dr Reddy. dw staff Consultation Date/Type/Reason Admit Date/Time Dec 06, 2018 at 12:45 Initial Consult Date 12/06/18 Type of Consult NEPHROLOGY Requesting Provider: BOZENA PARK Date/Time of Note DATE: 12/17/18 TIME: 09:33 24 HR Interval Summary Free Text/Dictation - nad - afebrile - remains intubated - SP HD yesterday - Plan for PEG today - BUE/BLE swelling- will do doppler to r/o any DVT - no new issues reported last night Dw staff Subjective hx not possible: pt non-verbal, pt critical status Constitutional: requiring IVF, requiring O2 Exam/Review of Systems Exam Vitals Vital Signs Date Temp Pulse Resp B/P (MAP) Pulse Ox O2 O2 Flow FiO2 Time Delivery Rate 12/17/18 73 17 147/55 100 09:00 (85) 12/17/18 99.2 Mechanical 08:00 Ventilator 12/17/18 30 08:00 Intake and Output 12/16/18 12/16/18 12/17/18 1515:00 23:00 07:00 IntakeIntake Total 678 ml 726 ml 470 ml OutputOutput Total 10 ml BalanceBalance 668 ml 726 ml 470 ml Constitutional: well developed, non-verbal, frail, obese Psych: nl mood/affect Eyes: nl lids, nl sclera ENMT: nl external ears & nose Neck: other Respiratory: diminished breath sounds Cardiovascular: nl pulses, other Gastrointestinal: soft Musculoskeletal: muscle weakness Extremities: edema Neurological: unresponsive Results Result Diagram: 12/17/18 0738 12/17/18 0400 Results 24hrs Laboratory Tests Test 12/16/18 11:15 12/16/18 11:58 12/16/18 12:59 12/16/18 16:43 Bedside Glucose 232 H 220 215 Phenytoin (Dilantin) 12.4 Level Test 12/16/18 20:12 12/17/18 00:39 12/17/18 04:00 12/17/18 05:38 Bedside Glucose 192 172 173 White Blood Count 17.7 #H Red Blood Count 1.78 #L Hemoglobin 5.4 #*L Hematocrit 17.6 #L Mean Corpuscular 98.9 Volume Mean Corpuscular 30.3 Hemoglobin Mean Corpuscular 30.7 L Hemoglobin Concent Red Cell 15.0 H Distribution Width Platelet Count 238 # Mean Platelet Volume 10.9 H Immature 1.600 H Granulocytes % Neutrophils % 80.9 H Segmented 78 H Neutrophils % (Manual) Band Neutrophils % 3 (Manual) Lymphocytes % 7.2 L Lymphocytes % 6 L (Manual) Monocytes % 8.7 Monocytes % (Manual) 8 Eosinophils % 1.3 Eosinophils % 3 (Manual) Basophils % 0.3 Metamyelocytes % 1 H (manual) Myelocytes % 1 H (Manual) Nucleated Red Blood 0.0 Cells % Immature 0.290 H Granulocytes # Neutrophils # 14.3 H Neutrophils # 13.9 H (Manual) Band Neutrophils # 0.5 Lymphocytes (Manual) 1.0 Lymphocytes # 1.3 Monocytes # 1.5 H Monocytes # (Manual) 1.4 H Eosinophils # 0.2 Basophils # 0.1 Metamyelocytes # 0.1 H Myelocytes # 0.1 H Nucleated Red Blood 0.0 Cells # Platelet Estimate NORMAL Polychromasia 3+ Hypochromasia 3+ Poikilocytosis 1+ Anisocytosis 1+ Microcytosis 2+ Spherocytes 1+ Tear Drop Cells 1+ Ovalocytes 1+ Sodium Level 139 Potassium Level 4.6 Chloride Level 102 Carbon Dioxide Level 24 Anion Gap 13 Blood Urea Nitrogen 75 H Creatinine 5.04 H Est Glomerular 9 L Filtrat Rate mL/min Glucose Level 155 Calcium Level 9.4 Magnesium Level 2.5 Total Bilirubin Direct Bilirubin Indirect Bilirubin Aspartate Amino 50 H Transf (AST/SGOT) Alanine 25 Aminotransferase (AL T/SGPT) Alkaline Phosphatase 183 H Total Protein 7.3 Albumin 3.4 Globulin 3.90 H Albumin/Globulin 0.87 Ratio Test 12/17/18 07:38 12/17/18 08:49 White Blood Count 14.4 H Red Blood Count 3.17 #L Hemoglobin 9.5 #L Hematocrit 30.8 #L Mean Corpuscular 97.2 Volume Mean Corpuscular 30.0 Hemoglobin Mean Corpuscular 30.8 L Hemoglobin Concent Red Cell 15.1 H Distribution Width Platelet Count 184 # Mean Platelet Volume 10.5 H Immature 1.800 H Granulocytes % Neutrophils % 81.3 H Lymphocytes % 7.3 L Monocytes % 8.2 Eosinophils % 1.1 Basophils % 0.3 Nucleated Red Blood 0.0 Cells % Immature 0.260 H Granulocytes # Neutrophils # 11.7 H Lymphocytes # 1.1 Monocytes # 1.2 H Eosinophils # 0.2 Basophils # 0.0 Nucleated Red Blood 0.0 Cells # Bedside Glucose 193 Medications Medication Current Medications Ondansetron HCl (Zofran Inj) 4 mg Q6H PRN IV NAUSEA AND/OR VOMITING; Start 12/06/18 at 09:30 Albuterol (Proventil 0.083% (Neb)) 2.5 mg Q2H RESP THERAPY PRN NEB SHORTNESS OF BREATH; Start 12/06/18 at 09:30 Docusate Sodium (Colace) 100 mg Q12H PRN PO CONSTIPATION; Start 12/06/18 at 09:30 Magnesium Hydroxide (Milk Of Mag) 30 ml DAILY PRN PO CONSTIPATION; Start 12/06/18 at 09:30 Aspirin (Aspirin) 81 mg DAILY PO Last administered on 12/16/18at 07:58; Admin Dose 81 MG; Start 12/06/18 at 10:30 Brimonidine Tartrate (Alphagan 0.2%) 1 drop DAILY BOTH EYES Last administered on 12/17/18at 08:56; Admin Dose 1 DROP; Start 12/06/18 at 11:00 Calcium Acetate (Phoslo) 667 mg WITH MEALS PO Last administered on 12/16/18at 16:41; Admin Dose 667 MG; Start 12/06/18 at 12:00 Docusate Sodium (Colace) 200 mg DAILY PO ; Start 12/06/18 at 10:30; Status Hold Lactulose (Enulose) 20 gm BID PO Last administered on 12/16/18 08:02; Admin Dose 20 GM; Start 12/06/18 at 21:00 Montelukast Sodium (Singulair) 10 mg HS PO ; Start 12/06/18 at 21:00; Status Hold Multivit/Ca Carb/ B Cmplx/FA/Prenat (Mariaelena-Rosas) 1 tab DAILY PO Last a dministered on 12/16/18 08:02; Admin Dose 1 TAB; Start 12/06/18 at 10:30 Norepinephrine 250 ml @ 1.875 mls/ hr TITRATE IV Last administered on 12/07/18 13:25; Admin Dose 56.25 MLS/HR; Start 12/06/18 at 13:00 Atropine Sulfate (Atropine (Syringe)) 1 mg PRN PRN IV prn Last administered on 12/06/18 16:49; Admin Dose 1 MG; Start 12/06/18 at 16:00 Midazolam HCl 50 ml @ 1 mls/hr TITRATE IV Last administered on 12/09/18 05:09; Admin Dose 4 MLS/HR; Start 12/06/18 at 16:30 Vancomycin HCl (Vanco Iv Per Pharmacy) VANCOMYCIN PER PHARMACY PER PROTOCOL XX ; Start 12/06/18 at 17:30 Cefepime HCl 50 ml @ 100 mls/hr Q24H IVPB Last administered on 12/16/18 20:08; Admin Dose 100 MLS/HR; Start 12/06/18 at 21:00 Levetiracetam 100 ml @ 400 mls/hr Q12 IVPB Last administered on 12/16/18 20:08; Admin Dose 400 MLS/HR; Start 12/06/18 at 21:00 Dopamine HCl/ Dextrose 250 ml @ 7.613 mls/ hr TITRATE IV Last administered on 12/09/18 03:03; Admin Dose 11.419 MLS/HR; Start 12/06/18 at 17:30 Acetaminophen (Tylenol Supp) 650 mg Q4H PRN [place] TEMP > 37C; Start 12/06/18 at 18:30 Meperidine HCl (Demerol) 12.5 mg Q4H PRN IV POST OPERATIVE SHIVERING; Start 12/06/18 at 18:30 Meperidine HCl (Demerol) 25 mg Q4H PRN IV POST OPERATIVE SHIVERING; Start 12/06/18 at 18:30 Eye Lubricant (Akwa Oint) 1 applic Q6 BOTH EYES Last administered on 12/17/18 05:34; Admin Dose 1 APPLIC; Start 12/07/18 at 00:00 Eye Lubricant (Artificial Tears Oph) 2 drop Q6 BOTH EYES Last administered on 12/17/18 05:34; Admin Dose 2 DROP; Start 12/07/18 at 00:00 Magnesium Sulfate 50 ml @ 25 mls/hr PRN PRN IVPB IV PROTOCOL; Start 12/06/18 at 20:30 Potassium Chloride 50 ml @ 25 mls/hr PRN PRN IVPB IV PROTOCOL Last administered on 12/07/18 08:33; Admin Dose 25 MLS/HR; Start 12/06/18 at 20:30 Heparin Sodium (Porcine) (Heparin (1000 Units/ml)) 4,000 unit AFTER DIALYSIS CATHETER ; Start 12/06/18 at 22:00 Albumin Human 100 ml @ 100 mls/hr WITH DIALYSIS PRN IV SBP <90 DURING DIALYSIS Last administered on 12/13/18 08:56; Admin Dose 100 MLS/HR; Start 12/06/18 at 22:00 Sodium Chloride (NS) -To prime the dialy... DIRECTED FOR HD PRN IV HD; Start 12/06/18 at 22:00 Phenytoin 200 mg/ Sodium Chloride 54 ml @ 112 mls/hr AM IV Last administered on 12/16/18 09:34; Admin Dose 112 MLS/HR; Start 12/07/18 at 09:00 Phenytoin 200 mg/ Sodium Chloride 54 ml @ 112 mls/hr PC LUNCH IV Last administered on 12/16/18 13:16; Admin Dose 112 MLS/HR; Start 12/07/18 at 12:30 Phenytoin 300 mg/ Sodium Chloride 56 ml @ 112 mls/hr 2100 IV Last administered on 12/16/18 20:20; Admin Dose 112 MLS/HR; Start 12/07/18 at 21:00 Fentanyl 100 ml @ 2.5 mls/hr TITRATE IV Last administered on 12/08/18 06:27; Admin Dose 2.5 MLS/HR; Start 12/08/18 at 06:30 Diagnostic Test (Pha) (Accu-Chek) 1 ea 02 XX Last administered on 12/13/18at 01:36; Admin Dose 1 EA; Start 12/09/18 at 02:00 Miscellaneous Information 1 ea NOTE XX ; Start 12/08/18 at 11:30 Glucose (Glutose) 15 gm Q15M PRN PO DECREASED GLUCOSE; Start 12/08/18 at 11:30 Glucose (Glutose) 22.5 gm Q15M PRN PO DECREASED GLUCOSE; Start 12/08/18 at 11:30 Dextrose (D50w Syringe) 25 ml Q15M PRN IV DECREASED GLUCOSE; Start 12/08/18 at 11:30 Dextrose (D50w Syringe) 50 ml Q15M PRN IV DECREASED GLUCOSE; Start 12/08/18 at 1 1:30 Glucagon (Glucagen) 1 mg Q15M PRN IM DECREASED GLUCOSE; Start 12/08/18 at 11:30 Glucose (Glutose) 15 gm Q15M PRN BUCCAL DECREASED GLUCOSE; Start 12/08/18 at 11:30 Collagenase (Santyl) 1 applic DAILY TOP Last administered on 12/17/18at 08:56; Admin Dose 1 APPLIC; Start 12/10/18 at 09:00 Diagnostic Test (Pha) (Accu-Chek) 1 ea Q4 XX Last administered on 12/14/18at 08:21; Admin Dose 1 EA; Start 12/11/18 at 13:00 Acetaminophen (Tylenol Liquid) 650 mg Q6H PRN GTB MILD PAIN(1-3)OR ELEVATED TEMP Last administered on 12/16/18at 00:16; Admin Dose 650 MG; Start 12/11/18 at 20:30 Famotidine (Pepcid Iv) 20 mg Q48H IV Last administered on 12/17/18at 05:36; Admin Dose 20 MG; Start 12/13/18 at 07:00 Fluconazole/ Sodium Chloride 50 ml @ 50 mls/hr Q24H IVPB Last administered on 12/16/18at 14:09; Admin Dose 50 MLS/HR; Start 12/12/18 at 14:00 Insulin Aspart (Novolog Insulin Pen) NOVOLOG *MODERATE* ALGORITHM Q4 SC Last administered on 12/17/18at 08:54; Admin Dose 4 UNIT; Start 12/12/18 at 13:00 Metronidazole 100 ml @ 100 mls/hr Q6 IVPB Last administered on 12/17/18 05:34; Admin Dose 100 MLS/HR; Start 12/13/18 at 12:00 Lorazepam (Ativan) 1 mg Q10MIN PRN IV SEIZURES Last administered on 12/14/18 17:16; Admin Dose 1 MG; Start 12/13/18 at 13:30 Epoetin Man-epbx (Retacrit) 6,000 unit TuThSa@1700 SC Last administered on 12/16/18at 18:37; Admin Dose 6,000 UNIT; Start 12/16/18 at 17:00 Vancomycin HCl 250 ml @ 125 mls/hr Q96H IVPB Last administered on 12/15/18 17:52; Admin Dose 125 MLS/HR; Start 12/15/18 at 18:00 Insulin Glargine (Lantus) 35 units DAILY@0800 SC Last administered on 12/17/18 08:53; Admin Dose 35 UNITS; Start 12/17/18 at 08:00 Miscellaneous Information 1 ea NOTE XX ; Start 12/16/18 at 10:00 Glucose (Glutose) 15 gm Q15M PRN PO DECREASED GLUCOSE; Start 12/16/18 at 10:00 Glucose (Glutose) 22.5 gm Q15M PRN PO DECREASED GLUCOSE; Start 12/16/18 at 10:00 Dextrose (D50w Syringe) 25 ml Q15M PRN IV DECREASED GLUCOSE; Start 12/16/18 at 10:00 Dextrose (D50w Syringe) 50 ml Q15M PRN IV DECREASED GLUCOSE; Start 12/16/18 at 10:00 Glucagon (Glucagen) 1 mg Q15M PRN IM DECREASED GLUCOSE; Start 12/16/18 at 10:00 Glucose (Glutose) 15 gm Q15M PRN BUCCAL DECREASED GLUCOSE; Start 12/16/18 at 10:00 Hydralazine HCl (Apresoline) 10 mg Q4H PRN IV bp Last administered on 12/17/18at 07:03; Admin Dose 10 MG; Start 12/17/18 at 07:00 Carvedilol (Coreg) 6.25 mg BID NGT ; Start 12/17/18 at 21:00 EMMETT FRANCIS Dec 17, 2018 09:35
--- NOTE | 2018-12-17 10:18 | CONS ---
Assessment/Plan Assessment/Plan Hospital Course (Demo Recall) s/p cardiac arrest:First event was torsades in setting of prolonged QT caused by amiodarone. Subsequent PEA events. Trops negative and no ischemic EKG changes. Had a bradycardic arrest as well which may have been metabolic or related to lidocaine. EF is 35% and there is significant RV dysfunction and likely underlying severe pulm HTN which cannot be assessed accurately by echo. If she recovers she will need a cardiac cath for evaluation. Staph aureus bacteremia so may all have been sepsis related Shock: Septic with bacteremia. Off pressors Staph aureus bacteremia: ?from decubs. Repeat cultures negative Torsades: due to amiodarone induced prolonged QTc. Now resolved Prolonged QT: due to amiodarone. Resolved Cardiomyopathy: EF 35% RV dysfunction: doubt acute PE but maybe long standing pulm HTN NSVT: Unfortunately the tele bed in the ER that she was in did not record arrhythmias. Per ER MD she had 10-12 beats runs. Acute on chronic systolic CHF: EF 35%. Decompensated on exam HTN ?Paroxysmal afib: Coumadin is on her med list but INR was normal on admission. With h/o stroke, presumably she had afib in the past. ESRD on HD DM CVA with left weakness -increase to coreg 6.25mg BID -HD per nephrology -ok for PEG and trach from cardiac standpoint Consultation Date/Type/Reason Admit Date/Time Dec 06, 2018 at 12:45 Initial Consult Date 12/06/18 Type of Consult Cardiology Requesting Provider: BOZENA PARK Date/Time of Note DATE: 12/17/18 TIME: 10:16 24 HR Interval Summary Free Text/Dictation No events. BP elevated. Will have PEG today Exam/Review of Systems Vital Signs Vitals Vital Signs Date Temp Pulse Resp B/P (MAP) Pulse Ox O2 O2 Flow FiO2 Time Delivery Rate 12/17/18 73 10:00 12/17/18 18 140/57 100 Mechanical 09:45 (84) Ventilator 12/17/18 30 09:10 12/17/18 99.2 08:00 Intake and Output 12/16/18 12/16/18 12/17/18 1414:59 22:59 06:59 IntakeIntake Total 678 ml 726 ml 420 ml OutputOutput Total 10 ml BalanceBalance 668 ml 726 ml 420 ml Exam Constitutional: No alert, No oriented ENMT: intubated Neck: No jvd (unable to assess) Respiratory: diminished breath sounds; No clear to auscultation Cardiovascular: regular rate and rhythm, edema (1+); No systolic murmur Gastrointestinal: soft; No distended Neurological: No nl mental status, No nl speech Labs Result Diagram: 12/17/18 0738 12/17/18 0400 Results 24hrs Laboratory Tests Test 12/16/18 11:15 12/16/18 11:58 12/16/18 12:59 12/16/18 16:43 Bedside Glucose 232 H 220 215 Phenytoin (Dilantin) 12.4 Level Test 12/16/18 20:12 12/17/18 00:39 12/17/18 04:00 12/17/18 05:38 Bedside Glucose 192 172 173 White Blood Count 17.7 #H Red Blood Count 1.78 #L Hemoglobin 5.4 #*L Hematocrit 17.6 #L Mean Corpuscular 98.9 Volume Mean Corpuscular 30.3 Hemoglobin Mean Corpuscular 30.7 L Hemoglobin Concent Red Cell 15.0 H Distribution Width Platelet Count 238 # Mean Platelet Volume 10.9 H Immature 1.600 H Granulocytes % Neutrophils % 80.9 H Segmented 78 H Neutrophils % (Manual) Band Neutrophils % 3 (Manual) Lymphocytes % 7.2 L Lymphocytes % 6 L (Manual) Monocytes % 8.7 Monocytes % (Manual) 8 Eosinophils % 1.3 Eosinophils % 3 (Manual) Basophils % 0.3 Metamyelocytes % 1 H (manual) Myelocytes % 1 H (Manual) Nucleated Red Blood 0.0 Cells % Immature 0.290 H Granulocytes # Neutrophils # 14.3 H Neutrophils # 13.9 H (Manual) Band Neutrophils # 0.5 Lymphocytes (Manual) 1.0 Lymphocytes # 1.3 Monocytes # 1.5 H Monocytes # (Manual) 1.4 H Eosinophils # 0.2 Basophils # 0.1 Metamyelocytes # 0.1 H Myelocytes # 0.1 H Nucleated Red Blood 0.0 Cells # Platelet Estimate NORMAL Polychromasia 3+ Hypochromasia 3+ Poikilocytosis 1+ Anisocytosis 1+ Microcytosis 2+ Spherocytes 1+ Tear Drop Cells 1+ Ovalocytes 1+ Sodium Level 139 Potassium Level 4.6 Chloride Level 102 Carbon Dioxide Level 24 Anion Gap 13 Blood Urea Nitrogen 75 H Creatinine 5.04 H Est Glomerular 9 L Filtrat Rate mL/min Glucose Level 155 Calcium Level 9.4 Magnesium Level 2.5 Total Bilirubin Direct Bilirubin Indirect Bilirubin Aspartate Amino 50 H Transf (AST/SGOT) Alanine 25 Aminotransferase (AL T/SGPT) Alkaline Phosphatase 183 H Total Protein 7.3 Albumin 3.4 Globulin 3.90 H Albumin/Globulin 0.87 Ratio Test 12/17/18 07:38 12/17/18 08:49 White Blood Count 14.4 H Red Blood Count 3.17 #L Hemoglobin 9.5 #L Hematocrit 30.8 #L Mean Corpuscular 97.2 Volume Mean Corpuscular 30.0 Hemoglobin Mean Corpuscular 30.8 L Hemoglobin Concent Red Cell 15.1 H Distribution Width Platelet Count 184 # Mean Platelet Volume 10.5 H Immature 1.800 H Granulocytes % Neutrophils % 81.3 H Lymphocytes % 7.3 L Monocytes % 8.2 Eosinophils % 1.1 Basophils % 0.3 Nucleated Red Blood 0.0 Cells % Immature 0.260 H Granulocytes # Neutrophils # 11.7 H Lymphocytes # 1.1 Monocytes # 1.2 H Eosinophils # 0.2 Basophils # 0.0 Nucleated Red Blood 0.0 Cells # Bedside Glucose 193 Medications Medications Current Medications Ondansetron HCl (Zofran Inj) 4 mg Q6H PRN IV NAUSEA AND/OR VOMITING; Start 12/06/18 at 09:30 Albuterol (Proventil 0.083% (Neb)) 2.5 mg Q2H RESP THERAPY PRN NEB SHORTNESS OF BREATH; Start 12/06/18 at 09:30 Docusate Sodium (Colace) 100 mg Q12H PRN PO CONSTIPATION; Start 12/06/18 at 09:30 Magnesium Hydroxide (Milk Of Mag) 30 ml DAILY PRN PO CONSTIPATION; Start 12/06/18 at 09:30 Aspirin (Aspirin) 81 mg DAILY PO Last administered on 12/16/18at 07:58; Admin Dose 81 MG; Start 12/06/18 at 10:30 Brimonidine Tartrate (Alphagan 0.2%) 1 drop DAILY BOTH EYES Last administered on 12/17/18at 08:56; Admin Dose 1 DROP; Start 12/06/18 at 11:00 Calcium Acetate (Phoslo) 667 mg WITH MEALS PO Last administered on 12/16/18 16:41; Admin Dose 667 MG; Start 12/06/18 at 12:00 Docusate Sodium (Colace) 200 mg DAILY PO ; Start 12/06/18 at 10:30; Status Hold Lactulose (Enulose) 20 gm BID PO Last administered on 12/16/18 08:02; Admin Dose 20 GM; Start 12/06/18 at 21:00 Montelukast Sodium (Singulair) 10 mg HS PO ; Start 12/06/18 at 21:00; Status Hold Multivit/Ca Carb/ B Cmplx/FA/Prenat (Mariaelena-Rosas) 1 tab DAILY PO Last administered on 12/16/18 08:02; Admin Dose 1 TAB; Start 12/06/18 at 10:30 Norepinephrine 250 ml @ 1.875 mls/ hr TITRATE IV Last administered on 12/07/18 13:25; Admin Dose 56.25 MLS/HR; Start 12/06/18 at 13:00 Atropine Sulfate (Atropine (Syringe)) 1 mg PRN PRN IV prn Last administered on 12/06/18 16:49; Admin Dose 1 MG; Start 12/06/18 at 16:00 Midazolam HCl 50 ml @ 1 mls/hr TITRATE IV Last administered on 12/09/18 05:09; Admin Dose 4 MLS/HR; Start 12/06/18 at 16:30 Vancomycin HCl (Vanco Iv Per Pharmacy) VANCOMYCIN PER PHARMACY PER PROTOCOL XX ; Start 12/06/18 at 17:30 Cefepime HCl 50 ml @ 100 mls/hr Q24H IVPB Last administered on 12/16/18 20:08; Admin Dose 100 MLS/HR; Start 12/06/18 at 21:00 Levetiracetam 100 ml @ 400 mls/hr Q12 IVPB Last administered on 12/16/18 20:08; Admin Dose 400 MLS/HR; Start 12/06/18 at 21:00 Dopamine HCl/ Dextrose 250 ml @ 7.613 mls/ hr TITRATE IV Last administered on 12/09/18 03:03; Admin Dose 11.419 MLS/HR; Start 12/06/18 at 17:30 Acetaminophen (Tylenol Supp) 650 mg Q4H PRN [place] TEMP > 37C; Start 12/06/18 at 18:30 Meperidine HCl (Demerol) 12.5 mg Q4H PRN IV POST OPERATIVE SHIVERING; Start 12/06/18 at 18:30 Meperidine HCl (Demerol) 25 mg Q4H PRN IV POST OPERATIVE SHIVERING; Start 12/06/18 at 18:30 Eye Lubricant (Akwa Oint) 1 applic Q6 BOTH EYES Last administered on 12/17/18at 05:34; Admin Dose 1 APPLIC; Start 12/07/18 at 00:00 Eye Lubricant (Artificial Tears Oph) 2 drop Q6 BOTH EYES Last administered on 12/17/18 05:34; Admin Dose 2 DROP; Start 12/07/18 at 00:00 Magnesium Sulfate 50 ml @ 25 mls/hr PRN PRN IVPB IV PROTOCOL; Start 12/06/18 at 20:30 Potassium Chloride 50 ml @ 25 mls/hr PRN PRN IVPB IV PROTOCOL Last administered on 12/07/18at 08:33; Admin Dose 25 MLS/HR; Start 12/06/18 at 20:30 Heparin Sodium (Porcine) (Heparin (1000 Units/ml)) 4,000 unit AFTER DIALYSIS CATHETER ; Start 12/06/18 at 22:00 Albumin Human 100 ml @ 100 mls/hr WITH DIALYSIS PRN IV SBP <90 DURING DIALYSIS Last administered on 12/13/18 08:56; Admin Dose 100 MLS/HR; Start 12/06/18 at 22:00 Sodium Chloride (NS) -To prime the dialy... DIRECTED FOR HD PRN IV HD; Start 12/06/18 at 22:00 Phenytoin 200 mg/ Sodium Chloride 54 ml @ 112 mls/hr AM IV Last administered on 12/16/18 09:34; Admin Dose 112 MLS/HR; Start 12/07/18 at 09:00 Phenytoin 200 mg/ Sodium Chloride 54 ml @ 112 mls/hr PC LUNCH IV Last administered on 12/16/18at 13:16; Admin Dose 112 MLS/HR; Start 12/07/18 at 12:30 Phenytoin 300 mg/ Sodium Chloride 56 ml @ 112 mls/hr 2100 IV Last administered on 12/16/18at 20:20; Admin Dose 112 MLS/HR; Start 12/07/18 at 21:00 Fentanyl 100 ml @ 2.5 mls/hr TITRATE IV Last administered on 12/08/18at 06:27; Admin Dose 2.5 MLS/HR; Start 12/08/18 at 06:30 Diagnostic Test (Pha) (Accu-Chek) 1 ea 02 XX Last administered on 12/13/18at 01:36; Admin Dose 1 EA; Start 12/09/18 at 02:00 Miscellaneous Information 1 ea NOTE XX ; Start 12/08/18 at 11:30 Glucose (Glutose) 15 gm Q15M PRN PO DECREASED GLUCOSE; Start 12/08/18 at 11:30 Glucose (Glutose) 22.5 gm Q15M PRN PO DECREASED GLUCOSE; Start 12/08/18 at 11:30 Dextrose (D50w Syringe) 25 ml Q15M PRN IV DECREASED GLUCOSE; Start 12/08/18 at 11:30 Dextrose (D50w Syringe) 50 ml Q15M PRN IV DECREASED GLUCOSE; Start 12/08/18 at 11:30 Glucagon (Glucagen) 1 mg Q15M PRN IM DECREASED GLUCOSE; Start 12/08/18 at 11:30 Glucose (Glutose) 15 gm Q15M PRN BUCCAL DECREASED GLUCOSE; Start 12/08/18 at 11:30 Collagenase (Santyl) 1 applic DAILY TOP Last administered on 12/17/18at 08:56; Admin Dose 1 APPLIC; Start 12/10/18 at 09:00 Diagnostic Test (Pha) (Accu-Chek) 1 ea Q4 XX Last administered on 12/14/18at 08:21; Admin Dose 1 EA; Start 12/11/18 at 13:00 Acetaminophen (Tylenol Liquid) 650 mg Q6H PRN GTB MILD PAIN(1-3)OR ELEVATED TEMP Last administered on 12/16/18at 00:16; Admin Dose 650 MG; Start 12/11/18 at 20:30 Famotidine (Pepcid Iv) 20 mg Q48H IV Last administered on 12/17/18at 05:36; Admin Dose 20 MG; Start 12/13/18 at 07:00 Fluconazole/ Sodium Chloride 50 ml @ 50 mls/hr Q24H IVPB Last administered on 12/16/18at 14:09; Admin Dose 50 MLS/HR; Start 12/12/18 at 14:00 Insulin Aspart (Novolog Insulin Pen) NOVOLOG *MODERATE* ALGORITHM Q4 SC Last administered on 12/17/18at 08:54; Admin Dose 4 UNIT; Start 12/12/18 at 13:00 Metronidazole 100 ml @ 100 mls/hr Q6 IVPB Last administered on 12/17/18at 05:34; Admin Dose 100 MLS/HR; Start 12/13/18 at 12:00 Lorazepam (Ativan) 1 mg Q10MIN PRN IV SEIZURES Last administered on 12/14/18at 17:16; Admin Dose 1 MG; Start 12/13/18 at 13:30 Epoetin Man-epbx (Retacrit) 6,000 unit TuThSa@1700 SC Last administered on 12/16/18at 18:37; Admin Dose 6,000 UNIT; Start 12/16/18 at 17:00 Vancomycin HCl 250 ml @ 125 mls/hr Q96H IVPB Last administered on 12/15/18at 17:52; Admin Dose 125 MLS/HR; Start 12/15/18 at 18:00 Insulin Glargine (Lantus) 35 units DAILY@0800 SC Last administered on 12/17/18at 08:53; Admin Dose 35 UNITS; Start 12/17/18 at 08:00 Miscellaneous Information 1 ea NOTE XX ; Start 12/16/18 at 10:00 Glucose (Glutose) 15 gm Q15M PRN PO DECREASED GLUCOSE; Start 12/16/18 at 10:00 Glucose (Glutose) 22.5 gm Q15M PRN PO DECREASED GLUCOSE; Start 12/16/18 at 10:00 Dextrose (D50w Syringe) 25 ml Q15M PRN IV DECREASED GLUCOSE; Start 12/16/18 at 10:00 Dextrose (D50w Syringe) 50 ml Q15M PRN IV DECREASED GLUCOSE; Start 12/16/18 at 10:00 Glucagon (Glucagen) 1 mg Q15M PRN IM DECREASED GLUCOSE; Start 12/16/18 at 10:00 Glucose (Glutose) 15 gm Q15M PRN BUCCAL DECREASED GLUCOSE; Start 12/16/18 at 10:00 Hydralazine HCl (Apresoline) 10 mg Q4H PRN IV bp Last administered on 12/17/18at 07:03; Admin Dose 10 MG; Start 12/17/18 at 07:00 Carvedilol (Coreg) 6.25 mg BID NGT ; Start 12/17/18 at 21:00 JJ BRANCH Dec 17, 2018 10:18
[2018-12-17] MEDS: ALBUMIN HUMAN 25% 100 ML IV PRN (11:47)
[2018-12-17] MEDS: LEVETIRACETAM 500 MG (PMX) 100 ML IVPB SCH ×2 (13:12→20:28)
--- NOTE | 2018-12-17 13:58 | CONS ---
Assessment/Plan Assessment/Plan Hospital Course 47 F c/ reported Hx of stroke and epilepsy, among other comorbidities, who is currently admitted to the [facility] ICU following cardiac arrest. Now s/p TTM. On neurologic examination, she has preserved brainstem activity and a withdrawal motor response.. Her prognosis for meaningful neurologic recovery is probably poor. CTH was without acute intracranial pathology, though it was notable for severe atrophy and chronic subdurals. Initial EEG was without epileptiform activity; repeat EEG is the same. P: Continue Dilantin maintenance per ops for now; titrate prn to goal level 10-20 Continue Keppra per ops for now Ativan iv prn prolonged seizure or cluster Continue to limit sedating medications where possible Other medical management and supportive care per primary Will follow Consultation Date/Type/Reason Admit Date/Time Dec 06, 2018 at 12:45 Type of Consult Neurology Reason for Consultation coma Requesting Provider: BOZENA PARK Date/Time of Note DATE: 12/17/18 TIME: 13:58 24 HR Interval Summary Free Text/Dictation Continues critical care. Subjective hx not possible: pt non-verbal, pt critical Exam Vital Signs Vitals Vital Signs Date Temp Pulse Resp B/P (MAP) Pulse Ox O2 O2 Flow FiO2 Time Delivery Rate 12/17/18 78 15 149/71 100 Mechanical 13:01 (97) Ventilator 12/17/18 98.5 12:00 12/17/18 30 09:10 Intake and Output 12/16/18 12/16/18 12/17/18 1515:00 23:00 07:00 IntakeIntake Total 678 ml 726 ml 470 ml OutputOutput Total 10 ml BalanceBalance 668 ml 726 ml 470 ml Exam PE: Gen Appearance: No Apparent Distress HEENT: Intubated; edematous Cardiovascular: Regular rate Abdomen: Soft Extremities: Dry; edematous NE: The patient was comatose. Cranial nerve examination was limited by mental status. R pupil was sluggishly reactive to light; cataract in L pupil. Funduscopic examination was limited. Face was grossly symmetric, w/ present corneal and cough reflexes. Tone was normal. Muscle bulk was normal. I did not see fasciculations. The patient withdrew her lower extremities to noxious stimuli. Coordination and gait testing was limited by mental status. Arm and leg reflexes were symmetric. Sun's sign was absent. Plantar r esponses were extensor. BEN DICKINSON Dec 17, 2018 13:58 APARNA AQUINO NP Dec 17, 2018 15:51
--- NOTE | 2018-12-17 14:21 | CONS ---
Assessment/Plan Assessment/Plan Hospital Course (Demo Recall) No fevers patient is intubated noncommunicative in no distress. She is scheduled for PEG placement today. T-max yesterday was 100.5. WBC 14.4 H&H 9.5 and 30.8 platelets 184 neutrophils 81.3. Microbiology: Blood cultures on admission grew oxacillin sensitive staph aureus, repeat blood cultures negative urine culture negative sputum culture grew Rosa albicans. Femoral line tip culture grew Corynebacterium, coag negative staph and alpha hemolytic strep species Extremity venous study revealed a DVT involving the right proximal femoral vein Indwelling: Endotracheal tube, NG tube, right upper extremity AV fistula, right femoral triple-lumen catheter 12/14/18 Antimicrobials: Vancomycin, Flagyl, fluconazole, cefepime Physical examination: Obese chronically ill-appearing middle-aged woman who is noncommunicative intubated in no distress. Head atraumatic normocephalic neck is obese chest rise symmetrical breath sounds diminished bases heart S1-S2 abdomen obese soft bowel sounds hypoactive extremities with trace edema Assessment: 1. Fevers, status post infected femoral line discontinuation 1. Status post septic shock 2. Bilateral pneumonia 3. Status post oxacillin sensitive staph aureus bacteremia 4. Status post cardiac arrest with hypothermia protocol 5. Diabetes 6. Seizure disorder 7. End-stage renal disease, hemodialysis dependent 8. Cardiomyopathy with ejection fraction of 35% 9. Right lower extremity DVT Plan: Clinically unchanged, continue antibiotics, plan for trach and PEG Consultation Date/Type/Reason Admit Date/Time Dec 06, 2018 at 12:45 Initial Consult Date 12/06/18 Type of Consult id Requesting Provider: BOZENA PARK Date/Time of Note DATE: 12/17/18 TIME: 14:18 Exam/Review of Systems Exam Vitals Vital Signs Date Temp Pulse Resp B/P (MAP) Pulse Ox O2 O2 Flow FiO2 Time Delivery Rate 12/17/18 70 141/66 100 14:00 (91) 12/17/18 15 Mechanical 13:01 Ventilator 12/17/18 98.5 12:00 12/17/18 30 09:10 Intake and Output 12/16/18 12/16/18 12/17/18 1515:00 23:00 07:00 IntakeIntake Total 678 ml 726 ml 470 ml OutputOutput Total 10 ml BalanceBalance 668 ml 726 ml 470 ml Results Result Diagram: 12/17/18 0738 12/17/18 0400 Results 24hrs Laboratory Tests Test 12/16/18 16:43 12/16/18 20:12 12/17/18 00:39 12/17/18 04:00 Bedside Glucose 215 192 172 White Blood Count 17.7 #H Red Blood Count 1.78 #L Hemoglobin 5.4 #*L Hematocrit 17.6 #L Mean Corpuscular 98.9 Volume Mean Corpuscular 30.3 Hemoglobin Mean Corpuscular 30.7 L Hemoglobin Concent Red Cell 15.0 H Distribution Width Platelet Count 238 # Mean Platelet Volume 10.9 H Immature 1.600 H Granulocytes % Neutrophils % 80.9 H Segmented 78 H Neutrophils % (Manual) Band Neutrophils % 3 (Manual) Lymphocytes % 7.2 L Lymphocytes % 6 L (Manual) Monocytes % 8.7 Monocytes % (Manual) 8 Eosinophils % 1.3 Eosinophils % 3 (Manual) Basophils % 0.3 Metamyelocytes % 1 H (manual) Myelocytes % 1 H (Manual) Nucleated Red Blood 0.0 Cells % Immature 0.290 H Granulocytes # Neutrophils # 14.3 H Neutrophils # 13.9 H (Manual) Band Neutrophils # 0.5 Lymphocytes (Manual) 1.0 Lymphocytes # 1.3 Monocytes # 1.5 H Monocytes # (Manual) 1.4 H Eosinophils # 0.2 Basophils # 0.1 Metamyelocytes # 0.1 H Myelocytes # 0.1 H Nucleated Red Blood 0.0 Cells # Platelet Estimate NORMAL Polychromasia 3+ Hypochromasia 3+ Poikilocytosis 1+ Anisocytosis 1+ Microcytosis 2+ Spherocytes 1+ Tear Drop Cells 1+ Ovalocytes 1+ Sodium Level 139 Potassium Level 4.6 Chloride Level 102 Carbon Dioxide Level 24 Anion Gap 13 Blood Urea Nitrogen 75 H Creatinine 5.04 H Est Glomerular 9 L Filtrat Rate mL/min Glucose Level 155 Calcium Level 9.4 Magnesium Level 2.5 Total Bilirubin Direct Bilirubin Indirect Bilirubin Aspartate Amino 50 H Transf (AST/SGOT) Alanine 25 Aminotransferase (AL T/SGPT) Alkaline Phosphatase 183 H Total Protein 7.3 Albumin 3.4 Globulin 3.90 H Albumin/Globulin 0.87 Ratio Test 12/17/18 05:38 12/17/18 07:38 12/17/18 08:49 12/17/18 12:28 Bedside Glucose 173 193 121 White Blood Count 14.4 H Red Blood Count 3.17 #L Hemoglobin 9.5 #L Hematocrit 30.8 #L Mean Corpuscular 97.2 Volume Mean Corpuscular 30.0 Hemoglobin Mean Corpuscular 30.8 L Hemoglobin Concent Red Cell 15.1 H Distribution Width Platelet Count 184 # Mean Platelet Volume 10.5 H Immature 1.800 H Granulocytes % Neutrophils % 81.3 H Lymphocytes % 7.3 L Monocytes % 8.2 Eosinophils % 1.1 Basophils % 0.3 Nucleated Red Blood 0.0 Cells % Immature 0.260 H Granulocytes # Neutrophils # 11.7 H Lymphocytes # 1.1 Monocytes # 1.2 H Eosinophils # 0.2 Basophils # 0.0 Nucleated Red Blood 0.0 Cells # Medications Medication Current Medications Ondansetron HCl (Zofran Inj) 4 mg Q6H PRN IV NAUSEA AND/OR VOMITING; Start 12/06/18 at 09:30 Albuterol (Proventil 0.083% (Neb)) 2.5 mg Q2H RESP THERAPY PRN NEB SHORTNESS OF BREATH; Start 12/06/18 at 09:30 Docusate Sodium (Colace) 100 mg Q12H PRN PO CONSTIPATION; Start 12/06/18 at 09:30 Magnesium Hydroxide (Milk Of Mag) 30 ml DAILY PRN PO CONSTIPATION; Start 12/06/18 at 09:30 Aspirin (Aspirin) 81 mg DAILY PO Last administered on 12/16/18at 07:58; Admin Dose 81 MG; Start 12/06/18 at 10:30 Brimonidine Tartrate (Alphagan 0.2%) 1 drop DAILY BOTH EYES Last administered on 12/17/18at 08:56; Admin Dose 1 DROP; Start 12/06/18 at 11:00 Calcium Acetate (Phoslo) 667 mg WITH MEALS PO Last administered on 12/16/18at 16:41; Admin Dose 667 MG; Start 12/06/18 at 12:00 Docusate Sodium (Colace) 200 mg DAILY PO ; Start 12/06/18 at 10:30; Status Hold Lactulose (Enulose) 20 gm BID PO Last administered on 12/16/18at 08:02; Admin Dose 20 GM; Start 12/06/18 at 21:00 Montelukast Sodium (Singulair) 10 mg HS PO ; Start 12/06/18 at 21:00; Status Hold Multivit/Ca Carb/ B Cmplx/FA/Prenat (Mariaelena-Rosas) 1 tab DAILY PO Last administered on 12/16/18 08:02; Admin Dose 1 TAB; Start 12/06/18 at 10:30 Norepinephrine 250 ml @ 1.875 mls/ hr TITRATE IV Last administered on 12/07/18 13:25; Admin Dose 56.25 MLS/HR; Start 12/06/18 at 13:00 Atropine Sulfate (Atropine (Syringe)) 1 mg PRN PRN IV prn Last administered on 12/06/18 16:49; Admin Dose 1 MG; Start 12/06/18 at 16:00 Midazolam HCl 50 ml @ 1 mls/hr TITRATE IV Last administered on 12/09/18 05:09; Admin Dose 4 MLS/HR; Start 12/06/18 at 16:30 Vancomycin HCl (Vanco Iv Per Pharmacy) VANCOMYCIN PER PHARMACY PER PROTOCOL XX ; Start 12/06/18 at 17:30 Cefepime HCl 50 ml @ 100 mls/hr Q24H IVPB Last administered on 12/16/18 20:08; Admin Dose 100 MLS/HR; Start 12/06/18 at 21:00 Levetiracetam 100 ml @ 400 mls/hr Q12 IVPB Last administered on 12/17/18 13:12; Admin Dose 400 MLS/HR; Start 12/06/18 at 21:00 Dopamine HCl/ Dextrose 250 ml @ 7.613 mls/ hr TITRATE IV Last administered on 12/09/18 03:03; Admin Dose 11.419 MLS/HR; Start 12/06/18 at 17:30 Acetaminophen (Tylenol Supp) 650 mg Q4H PRN [place] TEMP > 37C; Start 12/06/18 at 18:30 Meperidine HCl (Demerol) 12.5 mg Q4H PRN IV POST OPERATIVE SHIVERING; Start 12/06/18 at 18:30 Meperidine HCl (Demerol) 25 mg Q4H PRN IV POST OPERATIVE SHIVERING; Start 12/06 at 18:30 Eye Lubricant (Akwa Oint) 1 applic Q6 BOTH EYES Last administered on 12/17/18 12:32; Admin Dose 1 APPLIC; Start 12/07/18 at 00:00 Eye Lubricant (Artificial Tears Oph) 2 drop Q6 BOTH EYES Last administered on 12/17/18 12:32; Admin Dose 2 DROP; Start 12/07/18 at 00:00 Magnesium Sulfate 50 ml @ 25 mls/hr PRN PRN IVPB IV PROTOCOL; Start 12/06/18 at 20:30 Potassium Chloride 50 ml @ 25 mls/hr PRN PRN IVPB IV PROTOCOL Last administered on 12/07/18 08:33; Admin Dose 25 MLS/HR; Start 12/06/18 at 20:30 Heparin Sodium (Porcine) (Heparin (1000 Units/ml)) 4,000 unit AFTER DIALYSIS CATHETER ; Start 12/06/18 at 22:00 Albumin Human 100 ml @ 100 mls/hr WITH DIALYSIS PRN IV SBP <90 DURING DIALYSIS Last administered on 12/17/18 11:47; Admin Dose 100 MLS/HR; Start 12/06/18 at 22:00 Sodium Chloride (NS) -To prime the dialy... DIRECTED FOR HD PRN IV HD; Start 12/06/18 at 22:00 Phenytoin 200 mg/ Sodium Chloride 54 ml @ 112 mls/hr AM IV Last administered on 12/16/18 09:34; Admin Dose 112 MLS/HR; Start 12/07/18 at 09:00 Phenytoin 200 mg/ Sodium Chloride 54 ml @ 112 mls/hr PC LUNCH IV Last administered on 12/17/18 13:24; Admin Dose 112 MLS/HR; Start 12/07/18 at 12:30 Phenytoin 300 mg/ Sodium Chloride 56 ml @ 112 mls/hr 2100 IV Last administered on 12/16/18 20:20; Admin Dose 112 MLS/HR; Start 12/07/18 at 21:00 Fentanyl 100 ml @ 2.5 mls/hr TITRATE IV Last administered on 12/08/18 06:27; Admin Dose 2.5 MLS/HR; Start 12/08/18 at 06:30 Diagnostic Test (Pha) (Accu-Chek) 1 ea 02 XX Last administered on 12/13/18 01:36; Admin Dose 1 EA; Start 12/09/18 at 02:00 Miscellaneous Information 1 ea NOTE XX ; Start 12/08/18 at 11:30 Glucose (Glutose) 15 gm Q15M PRN PO DECREASED GLUCOSE; Start 12/08/18 at 11:30 Glucose (Glutose) 22.5 gm Q15M PRN PO DECREASED GLUCOSE; Start 12/08/18 at 11:30 Dextrose (D50w Syringe) 25 ml Q15M PRN IV DECREASED GLUCOSE; Start 12/08/18 at 11:30 Dextrose (D50w Syringe) 50 ml Q15M PRN IV DECREASED GLUCOSE; Start 12/08/18 at 11:30 Glucagon (Glucagen) 1 mg Q15M PRN IM DECREASED GLUCOSE; Start 12/08/18 at 11:30 Glucose (Glutose) 15 gm Q15M PRN BUCCAL DECREASED GLUCOSE; Start 12/08/18 at 11:30 Collagenase (Santyl) 1 applic DAILY TOP Last administered on 12/17/18at 08:56; Admin Dose 1 APPLIC; Start 12/10/18 at 09:00 Diagnostic Test (Pha) (Accu-Chek) 1 ea Q4 XX Last administered on 12/14/18at 08:21; Admin Dose 1 EA; Start 12/11/18 at 13:00 Acetaminophen (Tylenol Liquid) 650 mg Q6H PRN GTB MILD PAIN(1-3)OR ELEVATED TEMP Last administered on 12/16/18at 00:16; Admin Dose 650 MG; Start 12/11/18 at 20:30 Famotidine (Pepcid Iv) 20 mg Q48H IV Last administered on 12/17/18at 05:36; Admin Dose 20 MG; Start 12/13/18 at 07:00 Fluconazole/ Sodium Chloride 50 ml @ 50 mls/hr Q24H IVPB Last administered on 12/16/18at 14:09; Admin Dose 50 MLS/HR; Start 12/12/18 at 14:00 Insulin Aspart (Novolog Insulin Pen) NOVOLOG *MODERATE* ALGORITHM Q4 SC Last administered on 12/17/18at 08:54; Admin Dose 4 UNIT; Start 12/12/18 at 13:00 Metronidazole 100 ml @ 100 mls/hr Q6 IVPB Last administered on 12/17/18at 13:35; Admin Dose 100 MLS/HR; Start 12/13/18 at 12:00 Lorazepam (Ativan) 1 mg Q10MIN PRN IV SEIZURES Last administered on 12/14/18at 17:16; Admin Dose 1 MG; Start 12/13/18 at 13:30 Epoetin Man-epbx (Retacrit) 6,000 unit TuThSa@1700 SC Last administered on 12/16/18at 18:37; Admin Dose 6,000 UNIT; Start 12/16/18 at 17:00 Vancomycin HCl 250 ml @ 125 mls/hr Q96H IVPB Last administered on 12/15/18at 17:52; Admin Dose 125 MLS/HR; Start 12/15/18 at 18:00 Insulin Glargine (Lantus) 35 units DAILY@0800 SC Last administered on 12/17/18at 08:53; Admin Dose 35 UNITS; Start 12/17/18 at 08:00 Miscellaneous Information 1 ea NOTE XX ; Start 12/16/18 at 10:00 Glucose (Glutose) 15 gm Q15M PRN PO DECREASED GLUCOSE; Start 12/16/18 at 10:00 Glucose (Glutose) 22.5 gm Q15M PRN PO DECREASED GLUCOSE; Start 12/16/18 at 10:00 Dextrose (D50w Syringe) 25 ml Q15M PRN IV DECREASED GLUCOSE; Start 12/16/18 at 10:00 Dextrose (D50w Syringe) 50 ml Q15M PRN IV DECREASED GLUCOSE; Start 12/16/18 at 10:00 Glucagon (Glucagen) 1 mg Q15M PRN IM DECREASED GLUCOSE; Start 12/16/18 at 10:00 Glucose (Glutose) 15 gm Q15M PRN BUCCAL DECREASED GLUCOSE; Start 12/16/18 at 10:00 Hydralazine HCl (Apresoline) 10 mg Q4H PRN IV bp Last administered on 12/17/18at 07:03; Admin Dose 10 MG; Start 12/17/18 at 07:00 Carvedilol (Coreg) 6.25 mg BID NGT ; Start 12/17/18 at 21:00 LEWIS PERALES NP Dec 17, 2018 14:21
[2018-12-17] MEDS: FLUCONAZOLE 100 MG/50 ML (PMX) 50 ML IVPB SCH (14:47)
[2018-12-17] MEDS ORDERED: CEFAZOLIN 2 GM/50 ML (PMX) 50 ML IVPB ONE ×2 (17:00→17:11)
[2018-12-17] MEDS ORDERED: PROPOFOL 20 ML ONE (17:10)
[2018-12-17] MEDS ORDERED: LIDOCAINE 100 MG SYRINGE ONE (17:10)
--- NOTE | 2018-12-17 17:17 | PREAC ---
Date/Time of Note Date/Time of Note DATE: 12/17/18 TIME: 17:14 Anesthesia Eval and Record Evaluation Time Pre-Procedure Interview DATE: 12/17/18 TIME: 17:14 Age 47 Sex female NPO: 8 hrs Preoperative diagnosis nutritional support Planned procedure EGD / PEG tube placement Past Medical History Past Medical History: Includes Cardio: HTN, Arrythmia Endo: Diabetes Neuro: CVA Renal: ESRD on dialysis (dilalysis last done at 1000 today) GI: Morbid obesity Surgery & Anesthesia Issues No known issue Meds Anticoagulation: No Beta Charles within 24 hr: No Reason Beta Hcarles not given: Pt. not on B-Charles Reported Medications Insulin Lispro (Humalog) 100 U/Ml Vial, SQ SSI TID AND HS PRN 09/12/11 Multivit/Ca Carb/B Cmplx/Fa* (Mariaelnea-Rosas*) 1 Tab Tab, 1 TAB PO DAILY 09/12/11 [Prostat 64] No Conflict Check, 30 ML PO TID 09/12/11 Esomeprazole Mag Trihydrate (Nexium) 40 Mg Capsule.dr, 40 MG PO DAILY 09/12/11 Metoprolol (Lopressor) 100 Mg Tablet, 100 MG PO BID 09/12/11 Benazepril Hcl* (Lotensin*) 40 Mg Tablet, 40 MG PO DAILY 09/12/11 [Lactulose] No Conflict Check, 30 ML PO DAILY PRN 09/12/11 Lactulose (Lactulose) 10 G/15 Ml Solution, 20 G PO BID 09/12/11 Glipizide* (Glucotrol XL*) 2.5 Mg Tabsr, 2.5 MG PO DAILY 09/12/11 Phenytoin* Sodium Extended (Dilantin*) 100 Mg Capsule, 300 MG PO HS 09/12/11 Phenytoin* Sodium Extended (Dilantin*) 100 Mg Capsule, 200 MG PO DAILY @0900 09/12/11 Phenytoin* Sodium Extended (Dilantin*) 100 Mg Capsule, 200 MG PO DAILY @1300 09/12/11 Phenytoin* Sodium Extended (Dilantin*) 100 Mg Capsule, 200 MG PO DAILY 09/12/11 Docusate Sodium* (Colace*) 100 Mg Capsule, 200 MG PO DAILY 09/12/11 Warfarin Sodium* (Coumadin*) 7.5 Mg Tablet, 7.5 MG PO Q OTHER DAY 06/01/11 Montelukast Sodium* (Singulair*) 10 Mg Tablet, 10 MG PO HS 06/01/11 Folic Acid/Vitamin B Comp W-C* (Nephro-Rosas Tablet*) 0.8 Mg Tablet, 0.8 MG PO DAILY 06/01/11 Aspirin (Aspirin) 81 Mg Tablet, 81 MG PO DAILY 06/01/11 Levetiracetam* (Keppra*) 500 Mg Tablet, 500 MG PO BID 06/01/11 Clonidine Hcl* (Clonidine Hcl*) 0.2 Mg Tablet 01/09/11 Metoclopramide Hcl* (Metoclopramide Hcl*) 10 Mg Tablet 01/09/11 Brimonidine Tartrate* (Brimonidine Tartrate*) 15 Ml Drops 01/09/11 Prednisolone Acetate (Pred Forte) 5 Ml Drops.susp 01/09/11 Nifedipine (Nifedical XL*) 30 Mg/Bottle Tab.osm.24 01/09/11 Calcium Acetate* (Phoslo*) 667 Mg Tablet 10/24/09 Current Medications Ondansetron HCl (Zofran Inj) 4 mg Q6H PRN IV NAUSEA AND/OR VOMITING; Start 12/06/18 at 09:30 Albuterol (Proventil 0.083% (Neb)) 2.5 mg Q2H RESP THERAPY PRN NEB SHORTNESS OF BREATH; Start 12/06/18 at 09:30 Docusate Sodium (Colace) 100 mg Q12H PRN PO CONSTIPATION; Start 12/06/18 at 09:30 Magnesium Hydroxide (Milk Of Mag) 30 ml DAILY PRN PO CONSTIPATION; Start 12/06/18 at 09:30 Aspirin (Aspirin) 81 mg DAILY PO Last administered on 12/16/18at 07:58; Admin Dose 81 MG; Start 12/06/18 at 10:30 Brimonidine Tartrate (Alphagan 0.2%) 1 drop DAILY BOTH EYES Last administered on 12/17/18at 08:56; Admin Dose 1 DROP; Start 12/06/18 at 11:00 Calcium Acetate (Phoslo) 667 mg WITH MEALS PO Last administered on 12/16/18at 16:41; Admin Dose 667 MG; Start 12/06/18 at 12:00 Docusate Sodium (Colace) 200 mg DAILY PO ; Start 12/06/18 at 10:30; Status Hold Lactulose (Enulose) 20 gm BID PO Last administered on 12/16/18 08:02; Admin Dose 20 GM; Start 12/06/18 at 21:00 Montelukast Sodium (Singulair) 10 mg HS PO ; Start 12/06/18 at 21:00; Status Hold Multivit/Ca Carb/ B Cmplx/FA/Prenat (Mariaelena-Rosas) 1 tab DAILY PO Last administered on 12/16/18 08:02; Admin Dose 1 TAB; Start 12/06/18 at 10:30 Norepinephrine 250 ml @ 1.875 mls/ hr TITRATE IV Last administered on 12/07/18 13:25; Admin Dose 56.25 MLS/HR; Start 12/06/18 at 13:00 Atropine Sulfate (Atropine (Syringe)) 1 mg PRN PRN IV prn Last administered on 12/06/18 16:49; Admin Dose 1 MG; Start 12/06/18 at 16:00 Midazolam HCl 50 ml @ 1 mls/hr TITRATE IV Last administered on 12/09/18 05:09; Admin Dose 4 MLS/HR; Start 12/06/18 at 16:30 Vancomycin HCl (Vanco Iv Per Pharmacy) VANCOMYCIN PER PHARMACY PER PROTOCOL XX ; Start 12/06/18 at 17:30 Cefepime HCl 50 ml @ 100 mls/hr Q24H IVPB Last administered on 12/16/18 20:08; Admin Dose 100 MLS/HR; Start 12/06/18 at 21:00 Levetiracetam 100 ml @ 400 mls/hr Q12 IVPB Last administered on 12/17/18 13:12; Admin Dose 400 MLS/HR; Start 12/06/18 at 21:00 Dopamine HCl/ Dextrose 250 ml @ 7.613 mls/ hr TITRATE IV Last administered on 12/09/18 03:03; Admin Dose 11.419 MLS/HR; Start 12/06/18 at 17:30 Acetaminophen (Tylenol Supp) 650 mg Q4H PRN [place] TEMP > 37C; Start 12/06/18 at 18:30 Meperidine HCl (Demerol) 12.5 mg Q4H PRN IV POST OPERATIVE SHIVERING; Start 12/06/18 at 18:30 Meperidine HCl (Demerol) 25 mg Q4H PRN IV POST OPERATIVE SHIVERING; Start 12/06/18 at 18:30 Eye Lubricant (Akwa Oint) 1 applic Q6 BOTH EYES Last administered on 12/17/18 12:32; Admin Dose 1 APPLIC; Start 12/07/18 at 00:00 Eye Lubricant (Artificial Tears Oph) 2 drop Q6 BOTH EYES Last administered on 12/17/18 12:32; Admin Dose 2 DROP; Start 12/07/18 at 00:00 Magnesium Sulfate 50 ml @ 25 mls/hr PRN PRN IVPB IV PROTOCOL; Start 12/06/18 at 20:30 Potassium Chloride 50 ml @ 25 mls/hr PRN PRN IVPB IV PROTOCOL Last administered on 12/07/18 08:33; Admin Dose 25 MLS/HR; Start 12/06/18 at 20:30 Heparin Sodium (Porcine) (Heparin (1000 Units/ml)) 4,000 unit AFTER DIALYSIS CATHETER ; Start 12/06/18 at 22:00 Albumin Human 100 ml @ 100 mls/hr WITH DIALYSIS PRN IV SBP <90 DURING DIALYSIS Last administered on 12/17/18 11:47; Admin Dose 100 MLS/HR; Start 12/06/18 at 22:00 Sodium Chloride (NS) -To prime the dialy... DIRECTED FOR HD PRN IV HD; Start 12/06/18 at 22:00 Phenytoin 200 mg/ Sodium Chloride 54 ml @ 112 mls/hr AM IV Last administered on 12/16/18 09:34; Admin Dose 112 MLS/HR; Start 12/07/18 at 09:00 Phenytoin 200 mg/ Sodium Chloride 54 ml @ 112 mls/hr PC LUNCH IV Last administered on 12/17/18 13:24; Admin Dose 112 MLS/HR; Start 12/07/18 at 12:30 Phenytoin 300 mg/ Sodium Chloride 56 ml @ 112 mls/hr 2100 IV Last administered on 12/16/18 20:20; Admin Dose 112 MLS/HR; Start 12/07/18 at 21:00 Fentanyl 100 ml @ 2.5 mls/hr TITRATE IV Last administered on 12/08/18 06:27; Admin Dose 2.5 MLS/HR; Start 12/08/18 at 06:30 Diagnostic Test (Pha) (Accu-Chek) 1 ea 02 XX Last administered on 12/13/18at 0 1:36; Admin Dose 1 EA; Start 12/09/18 at 02:00 Miscellaneous Information 1 ea NOTE XX ; Start 12/08/18 at 11:30 Glucose (Glutose) 15 gm Q15M PRN PO DECREASED GLUCOSE; Start 12/08/18 at 11:30 Glucose (Glutose) 22.5 gm Q15M PRN PO DECREASED GLUCOSE; Start 12/08/18 at 11:30 Dextrose (D50w Syringe) 25 ml Q15M PRN IV DECREASED GLUCOSE; Start 12/08/18 at 11:30 Dextrose (D50w Syringe) 50 ml Q15M PRN IV DECREASED GLUCOSE; Start 12/08/18 at 11:30 Glucagon (Glucagen) 1 mg Q15M PRN IM DECREASED GLUCOSE; Start 12/08/18 at 11:30 Glucose (Glutose) 15 gm Q15M PRN BUCCAL DECREASED GLUCOSE; Start 12/08/18 at 11: 30 Collagenase (Santyl) 1 applic DAILY TOP Last administered on 12/17/18at 08:56; Admin Dose 1 APPLIC; Start 12/10/18 at 09:00 Diagnostic Test (Pha) (Accu-Chek) 1 ea Q4 XX Last administered on 12/14/18at 08:21; Admin Dose 1 EA; Start 12/11/18 at 13:00 Acetaminophen (Tylenol Liquid) 650 mg Q6H PRN GTB MILD PAIN(1-3)OR ELEVATED TEMP Last administered on 12/16/18at 00:16; Admin Dose 650 MG; Start 12/11/18 at 20:30 Fluconazole/ Sodium Chloride 50 ml @ 50 mls/hr Q24H IVPB Last administered on 12/17/18at 14:47; Admin Dose 50 MLS/HR; Start 12/12/18 at 14:00 Insulin Aspart (Novolog Insulin Pen) NOVOLOG *MODERATE* ALGORITHM Q4 SC Last administered on 12/17/18 08:54; Admin Dose 4 UNIT; Start 12/12/18 at 13:00 Metronidazole 100 ml @ 100 mls/hr Q6 IVPB Last administered on 12/17/18 13:35; Admin Dose 100 MLS/HR; Start 12/13/18 at 12:00 Lorazepam (Ativan) 1 mg Q10MIN PRN IV SEIZURES Last administered on 12/14/18at 17:16; Admin Dose 1 MG; Start 12/13/18 at 13:30 Epoetin Man-epbx (Retacrit) 6,000 unit TuThSa@1700 SC Last administered on 12/16/18at 18:37; Admin Dose 6,000 UNIT; Start 12/16/18 at 17:00 Vancomycin HCl 250 ml @ 125 mls/hr Q96H IVPB Last administered on 12/15/18at 17:52; Admin Dose 125 MLS/HR; Start 12/15/18 at 18:00 Insulin Glargine (Lantus) 35 units DAILY@0800 SC Last administered on 12/17/18at 08:53; Admin Dose 35 UNITS; Start 12/17/18 at 08:00 Miscellaneous Information 1 ea NOTE XX ; Start 12/16/18 at 10:00 Glucose (Glutose) 15 gm Q15M PRN PO DECREASED GLUCOSE; Start 12/16/18 at 10:00 Glucose (Glutose) 22.5 gm Q15M PRN PO DECREASED GLUCOSE; Start 12/16/18 at 10:00 Dextrose (D50w Syringe) 25 ml Q15M PRN IV DECREASED GLUCOSE; Start 12/16/18 at 10:00 Dextrose (D50w Syringe) 50 ml Q15M PRN IV DECREASED GLUCOSE; Start 12/16/18 at 10:00 Glucagon (Glucagen) 1 mg Q15M PRN IM DECREASED GLUCOSE; Start 12/16/18 at 10:00 Glucose (Glutose) 15 gm Q15M PRN BUCCAL DECREASED GLUCOSE; Start 12/16/18 at 10:00 Hydralazine HCl (Apresoline) 10 mg Q4H PRN IV bp Last administered on 12/17/18at 07:03; Admin Dose 10 MG; Start 12/17/18 at 07:00 Carvedilol (Coreg) 6.25 mg BID NGT ; Start 12/17/18 at 21:00 Famotidine (Pepcid) 20 mg Q48H PO ; Start 12/19/18 at 09:00 Cefazolin Sodium/ Dextrose 50 ml @ 100 mls/hr ON CHUY TO GI LAB ONCE IVPB ; Start 12/17/18 at 17:00; Stop 12/17/18 at 17:29 Meds reviewed: Yes Allergies Coded Allergies: No Known Allergy (Verified , 12/13/18) Allergies Reviewed: Yes Labs/Studies Labs Reviewed: Reviewed by anesthesiologist Result Diagram: 12/17/18 1636 12/17/18 0400 Laboratory Tests 12/17/18 04:00 12/17/18 07:38 12/17/18 16:36 test: Negative Studies: ECG (SR), 2D Echo (EF 35%) Pre-procedure Exam Last vitals Vital Signs Date Temp Pulse Resp B/P (MAP) Pulse Ox O2 O2 Flow FiO2 Time Delivery Rate 12/17/18 68 17 99/45 (63) 100 Mechanical 16:00 Ventilator 12/17/18 30 15:10 12/17/18 98.5 12:00 Airway: Adequate mouth opening Mallampati: Mallampati II Teeth: Normal Lung: Normal Heart: Normal ASA Physical Status ASA physical status: 4 Emergency: None Planned Anesthetic General/MAC: MAC Pre-operative Attestations Prior to commencing anesthesia and surgery, the patient was re-evaluated, there was verification of: *The patient's identity *The results of appropriate recent lab work and preoperative vital signs *The above evaluation not changing prior to induction *Anesthetic plan, risk benefits, alternative and complications discussed with patient/family; questions answered; patient/family understands, accepts and wishes to proceed. TWIN CORTEZ Dec 17, 2018 17:17
--- NOTE | 2018-12-17 18:11 | HPN ---
Date/Time of Note Date/Time of Note DATE: 12/17/18 TIME: 18:11 Interval H&P Admission Note Pt. seen H&P reviewed: No system changes MINDY PERDOMO MD Dec 17, 2018 18:11
--- NOTE | 2018-12-17 18:11 | CONS ---
Assessment/Plan Assessment/Plan Assessment/Plan (Daily) Assessment: Post cardiac arrest Enteral feeding requirements Staph bacteremia/sepsis Anemia multifactorial Diabetes mellitus Hypertension History of CVA Renal failure Plan: EGD with PEG. CC: MINDY PERDOMO MD ; Consultation Date/Type/Reason Admit Date/Time Dec 06, 2018 at 12:45 Date of Consultation: Dec 17, 2018 Type of Consult Gastroenterology Reason for Consultation PEG placement Date/Time of Note DATE: 12/17/18 TIME: 18:06 Hx of Present Illness Unfortunate 47-year-old female with multiple comorbidities. Patient had cardiac arrest and has failed to recover requiring enteral feeding support Not obtainable Past Medical History Medical History: diabetes, hypertension, renal disease, other (ESRD on HD for the past 8 years, Diabetes Mellitus, HTN, CVA with L sided residual weakness and ? afib on Coumadin ) Home Meds Reported Medications Insulin Lispro (Humalog) 100 U/Ml Vial, SQ SSI TID AND HS PRN 09/12/11 Multivit/Ca Carb/B Cmplx/Fa* (Mariaelena-Rosas*) 1 Tab Tab, 1 TAB PO DAILY 09/12/11 [Prostat 64] No Conflict Check, 30 ML PO TID 09/12/11 Esomeprazole Mag Trihydrate (Nexium) 40 Mg Capsule.dr, 40 MG PO DAILY 09/12/11 Metoprolol (Lopressor) 100 Mg Tablet, 100 MG PO BID 09/12/11 Benazepril Hcl* (Lotensin*) 40 Mg Tablet, 40 MG PO DAILY 09/12/11 [Lactulose] No Conflict Check, 30 ML PO DAILY PRN 09/12/11 Lactulose (Lactulose) 10 G/15 Ml Solution, 20 G PO BID 09/12/11 Glipizide* (Glucotrol XL*) 2.5 Mg Tabsr, 2.5 MG PO DAILY 09/12/11 Phenytoin* Sodium Extended (Dilantin*) 100 Mg Capsule, 300 MG PO HS 09/12/11 Phenytoin* Sodium Extended (Dilantin*) 100 Mg Capsule, 200 MG PO DAILY @0900 09/12/11 Phenytoin* Sodium Extended (Dilantin*) 100 Mg Capsule, 200 MG PO DAILY @1300 09/12/11 Phenytoin* Sodium Extended (Dilantin*) 100 Mg Capsule, 200 MG PO DAILY 09/12/11 Docusate Sodium* (Colace*) 100 Mg Capsule, 200 MG PO DAILY 09/12/11 Warfarin Sodium* (Coumadin*) 7.5 Mg Tablet, 7.5 MG PO Q OTHER DAY 06/01/11 Montelukast Sodium* (Singulair*) 10 Mg Tablet, 10 MG PO HS 06/01/11 Folic Acid/Vitamin B Comp W-C* (Nephro-Rosas Tablet*) 0.8 Mg Tablet, 0.8 MG PO DAILY 06/01/11 Aspirin (Aspirin) 81 Mg Tablet, 81 MG PO DAILY 06/01/11 Levetiracetam* (Keppra*) 500 Mg Tablet, 500 MG PO BID 06/01/11 Clonidine Hcl* (Clonidine Hcl*) 0.2 Mg Tablet 01/09/11 Metoclopramide Hcl* (Metoclopramide Hcl*) 10 Mg Tablet 01/09/11 Brimonidine Tartrate* (Brimonidine Tartrate*) 15 Ml Drops 01/09/11 Prednisolone Acetate (Pred Forte) 5 Ml Drops.susp 01/09/11 Nifedipine (Nifedical XL*) 30 Mg/Bottle Tab.osm.24 01/09/11 Calcium Acetate* (Phoslo*) 667 Mg Tablet 10/24/09 Medications Current Medications Ondansetron HCl (Zofran Inj) 4 mg Q6H PRN IV NAUSEA AND/OR VOMITING; Start 12/06/18 at 09:30 Albuterol (Proventil 0.083% (Neb)) 2.5 mg Q2H RESP THERAPY PRN NEB SHORTNESS OF BREATH; Start 12/06/18 at 09:30 Docusate Sodium (Colace) 100 mg Q12H PRN PO CONSTIPATION; Start 12/06/18 at 09:30 Magnesium Hydroxide (Milk Of Mag) 30 ml DAILY PRN PO CONSTIPATION; Start 12/06/18 at 09:30 Aspirin (Aspirin) 81 mg DAILY PO Last administered on 12/16/18at 07:58; Admin Dose 81 MG; Start 12/06/18 at 10:30 Brimonidine Tartrate (Alphagan 0.2%) 1 drop DAILY BOTH EYES Last administered on 12/17/18at 08:56; Admin Dose 1 DROP; Start 12/06/18 at 11:00 Calcium Acetate (Phoslo) 667 mg WITH MEALS PO Last administered on 12/16/18 16:41; Admin Dose 667 MG; Start 12/06/18 at 12:00 Docusate Sodium (Colace) 200 mg DAILY PO ; Start 12/06/18 at 10:30; Status Hold Lactulose (Enulose) 20 gm BID PO Last administered on 12/16/18 08:02; Admin Dose 20 GM; Start 12/06/18 at 21:00 Montelukast Sodium (Singulair) 10 mg HS PO ; Start 12/06/18 at 21:00; Status Hold Multivit/Ca Carb/ B Cmplx/FA/Prenat (Mariaelena-Rosas) 1 tab DAILY PO Last administered on 12/16/18 08:02; Admin Dose 1 TAB; Start 12/06/18 at 10:30 Norepinephrine 250 ml @ 1.875 mls/ hr TITRATE IV Last administered on 12/07/18 13:25; Admin Dose 56.25 MLS/HR; Start 12/06/18 at 13:00 Atropine Sulfate (Atropine (Syringe)) 1 mg PRN PRN IV prn Last administered on 12/06/18 16:49; Admin Dose 1 MG; Start 12/06/18 at 16:00 Midazolam HCl 50 ml @ 1 mls/hr TITRATE IV Last administered on 12/09/18 05:09; Admin Dose 4 MLS/HR; Start 12/06/18 at 16:30 Vancomycin HCl (Vanco Iv Per Pharmacy) VANCOMYCIN PER PHARMACY PER PROTOCOL XX ; Start 12/06/18 at 17:30 Cefepime HCl 50 ml @ 100 mls/hr Q24H IVPB Last administered on 12/16/18 20:08; Admin Dose 100 MLS/HR; Start 12/06/18 at 21:00 Levetiracetam 100 ml @ 400 mls/hr Q12 IVPB Last administered on 12/17/18 13:12; Admin Dose 400 MLS/HR; Start 12/06/18 at 21:00 Dopamine HCl/ Dextrose 250 ml @ 7.613 mls/ hr TITRATE IV Last administered on 12/09/18 03:03; Admin Dose 11.419 MLS/HR; Start 12/06/18 at 17:30 Acetaminophen (Tylenol Supp) 650 mg Q4H PRN [place] TEMP > 37C; Start 12/06/18 at 18:30 Meperidine HCl (Demerol) 12.5 mg Q4H PRN IV POST OPERATIVE SHIVERING; Start 12/06/18 at 18:30 Meperidine HCl (Demerol) 25 mg Q4H PRN IV POST OPERATIVE SHIVERING; Start 12/06/18 at 18:30 Eye Lubricant (Akwa Oint) 1 applic Q6 BOTH EYES Last administered on 12/17/18 17:46; Admin Dose 1 APPLIC; Start 12/07/18 at 00:00 Eye Lubricant (Artificial Tears Oph) 2 drop Q6 BOTH EYES Last administered on 12/17/18 17:46; Admin Dose 2 DROP; Start 12/07/18 at 00:00 Magnesium Sulfate 50 ml @ 25 mls/hr PRN PRN IVPB IV PROTOCOL; Start 12/06/18 at 20:30 Potassium Chloride 50 ml @ 25 mls/hr PRN PRN IVPB IV PROTOCOL Last administered on 12/07/18 08:33; Admin Dose 25 MLS/HR; Start 12/06/18 at 20:30 Heparin Sodium (Porcine) (Heparin (1000 Units/ml)) 4,000 unit AFTER DIALYSIS CATHETER ; Start 12/06/18 at 22:00 Albumin Human 100 ml @ 100 mls/hr WITH DIALYSIS PRN IV SBP <90 DURING DIALYSIS Last administered on 12/17/18 11:47; Admin Dose 100 MLS/HR; Start 12/06/18 at 22:00 Sodium Chloride (NS) -To prime the dialy... DIRECTED FOR HD PRN IV HD; Start 12/06/18 at 22:00 Phenytoin 200 mg/ Sodium Chloride 54 ml @ 112 mls/hr AM IV Last administered on 12/16/18 09:34; Admin Dose 112 MLS/HR; Start 12/07/18 at 09:00 Phenytoin 200 mg/ Sodium Chloride 54 ml @ 112 mls/hr PC LUNCH IV Last admini stered on 12/17/18 13:24; Admin Dose 112 MLS/HR; Start 12/07/18 at 12:30 Phenytoin 300 mg/ Sodium Chloride 56 ml @ 112 mls/hr 2100 IV Last administered on 12/16/18 20:20; Admin Dose 112 MLS/HR; Start 12/07/18 at 21:00 Fentanyl 100 ml @ 2.5 mls/hr TITRATE IV Last administered on 12/08/18at 06:27; A dmin Dose 2.5 MLS/HR; Start 12/08/18 at 06:30 Diagnostic Test (Pha) (Accu-Chek) 1 ea 02 XX Last administered on 12/13/18at 01:36; Admin Dose 1 EA; Start 12/09/18 at 02:00 Miscellaneous Information 1 ea NOTE XX ; Start 12/08/18 at 11:30 Glucose (Glutose) 15 gm Q15M PRN PO DECREASED GLUCOSE; Start 12/08/18 at 11:30 Glucose (Glutose) 22.5 gm Q15M PRN PO DECREASED GLUCOSE; Start 12/08/18 at 11:30 Dextrose (D50w Syringe) 25 ml Q15M PRN IV DECREASED GLUCOSE; Start 12/08/18 at 11:30 Dextrose (D50w Syringe) 50 ml Q15M PRN IV DECREASED GLUCOSE; Start 12/08/18 at 11:30 Glucagon (Glucagen) 1 mg Q15M PRN IM DECREASED GLUCOSE; Start 12/08/18 at 11:30 Glucose (Glutose) 15 gm Q15M PRN BUCCAL DECREASED GLUCOSE; Start 12/08/18 at 11:30 Collagenase (Santyl) 1 applic DAILY TOP Last administered on 12/17/18at 08:56; Admin Dose 1 APPLIC; Start 12/10/18 at 09:00 Diagnostic Test (Pha) (Accu-Chek) 1 ea Q4 XX Last administered on 12/14/18at 08:21; Admin Dose 1 EA; Start 12/11/18 at 13:00 Acetaminophen (Tylenol Liquid) 650 mg Q6H PRN GTB MILD PAIN(1-3)OR ELEVATED TEMP Last administered on 12/16/18at 00:16; Admin Dose 650 MG; Start 12/11/18 at 20:30 Fluconazole/ Sodium Chloride 50 ml @ 50 mls/hr Q24H IVPB Last administered on 12/17/18at 14:47; Admin Dose 50 MLS/HR; Start 12/12/18 at 14:00 Insulin Aspart (Novolog Insulin Pen) NOVOLOG *MODERATE* ALGORITHM Q4 SC Last administered on 12/17/18at 08:54; Admin Dose 4 UNIT; Start 12/12/18 at 13:00 Metronidazole 100 ml @ 100 mls/hr Q6 IVPB Last administered on 12/17/18at 13:35; Admin Dose 100 MLS/HR; Start 12/13/18 at 12:00 Lorazepam (Ativan) 1 mg Q10MIN PRN IV SEIZURES Last administered on 12/14/18at 17:16; Admin Dose 1 MG; Start 12/13/18 at 13:30 Epoetin Man-epbx (Retacrit) 6,000 unit TuThSa@1700 SC Last administered on 12/16/18at 18:37; Admin Dose 6,000 UNIT; Start 12/16/18 at 17:00 Vancomycin HCl 250 ml @ 125 mls/hr Q96H IVPB Last administered on 12/15/18at 17:52; Admin Dose 125 MLS/HR; Start 12/15/18 at 18:00 Insulin Glargine (Lantus) 35 units DAILY@0800 SC Last administered on 12/17/18at 08:53; Admin Dose 35 UNITS; Start 12/17/18 at 08:00 Miscellaneous Information 1 ea NOTE XX ; Start 12/16/18 at 10:00 Glucose (Glutose) 15 gm Q15M PRN PO DECREASED GLUCOSE; Start 12/16/18 at 10:00 Glucose (Glutose) 22.5 gm Q15M PRN PO DECREASED GLUCOSE; Start 12/16/18 at 10:00 Dextrose (D50w Syringe) 25 ml Q15M PRN IV DECREASED GLUCOSE; Start 12/16/18 at 10:00 Dextrose (D50w Syringe) 50 ml Q15M PRN IV DECREASED GLUCOSE; Start 12/16/18 at 10:00 Glucagon (Glucagen) 1 mg Q15M PRN IM DECREASED GLUCOSE; Start 12/16/18 at 10:00 Glucose (Glutose) 15 gm Q15M PRN BUCCAL DECREASED GLUCOSE; Start 12/16/18 at 10:00 Hydralazine HCl (Apresoline) 10 mg Q4H PRN IV bp Last administered on 12/17/18at 07:03; Admin Dose 10 MG; Start 12/17/18 at 07:00 Carvedilol (Coreg) 6.25 mg BID NGT ; Start 12/17/18 at 21:00 Famotidine (Pepcid) 20 mg Q48H PO ; Start 12/19/18 at 09:00 Allergies: Coded Allergies: No Known Allergy (Verified , 12/13/18) Past Surgical History Past Surgical Hx: other (fistula placement, C section) Social History Alcohol Use: none Smoking Status: Never smoker Drug Use: none Exam/Review of Systems Exam Vitals Vital Signs Date Temp Pulse Resp B/P (MAP) Pulse Ox O2 O2 Flow FiO2 Time Delivery Rate 12/17/18 97.6 65 16 131/62 100 Mechanical 17:35 (85) Ventilator 12/17/18 30 17:10 Intake and Output 12/16/18 12/16/18 12/17/18 1515:00 23:00 07:00 IntakeIntake Total 678 ml 726 ml 470 ml OutputOutput Total 10 ml BalanceBalance 668 ml 726 ml 470 ml Exam PHYSICAL EXAMINATION: GENERAL: Well developed, obese, unresponsive SKIN: No lesions, no stigmata chronic liver disease, no evidence of bleeding diathesis LYMPHATIC: No palpable lymphadenopathy. HEAD: Normocephalic, atraumatic, no tenderness. EYES: Pupils equal reactive to light and accommodation, full extraocular moveme nts, sclera clear, non-icteric, no discharge. EARS/NOSE AND THROAT: Ears normal, nose normal, oropharynx normal, oral membranes well hydrated without lesions. NECK: Supple, no masses, thyroid normal, JVP within normal limits, carotids normal without bruits. CHEST: Inspection within normal limits. CARDIOVASCULAR: Heart: Regular rate and rhythm, no murmurs, gallops or rubs. Peripheral pulses present within normal limits, no cyanosis, clubbing or edemas. No pulsatile abdominal mass RESPIRATORY: Lungs clear to auscultation and percussion, no wheezing, no rubs GASTROINTESTINAL AND LIVER: Abdomen: Soft, non tenderness, non-distended, no hernias, no masses, no organomegaly, no ascites, no guarding, no rebound tenderness, normoactive bowel sounds. Rectal: Deferred. [no perianal disease, no masses, stool normal, occult blood negative.] GENITOURINARY: [Male genitalia within normal limits.][Female genitalia within normal limits.] EXTREMITIES: No cyanosis, clubbing or edema. Results Result Diagram: 12/17/18 1636 12/17/18 0400 Results 24hrs Laboratory Tests Test 12/16/18 20:12 12/17/18 00:39 12/17/18 04:00 12/17/18 05:38 Bedside Glucose 192 172 173 White Blood Count 17.7 #H Red Blood Count 1.78 #L Hemoglobin 5.4 #*L Hematocrit 17.6 #L Mean Corpuscular 98.9 Volume Mean Corpuscular 30.3 Hemoglobin Mean Corpuscular 30.7 L Hemoglobin Concent Red Cell 15.0 H Distribution Width Platelet Count 238 # Mean Platelet Volume 10.9 H Immature 1.600 H Granulocytes % Neutrophils % 80.9 H Segmented 78 H Neutrophils % (Manual) Band Neutrophils % 3 (Manual) Lymphocytes % 7.2 L Lymphocytes % 6 L (Manual) Monocytes % 8.7 Monocytes % (Manual) 8 Eosinophils % 1.3 Eosinophils % 3 (Manual) Basophils % 0.3 Metamyelocytes % 1 H (manual) Myelocytes % 1 H (Manual) Nucleated Red Blood 0.0 Cells % Immature 0.290 H Granulocytes # Neutrophils # 14.3 H Neutrophils # 13.9 H (Manual) Band Neutrophils # 0.5 Lymphocytes (Manual) 1.0 Lymphocytes # 1.3 Monocytes # 1.5 H Monocytes # (Manual) 1.4 H Eosinophils # 0.2 Basophils # 0.1 Metamyelocytes # 0.1 H Myelocytes # 0.1 H Nucleated Red Blood 0.0 Cells # Platelet Estimate NORMAL Polychromasia 3+ Hypochromasia 3+ Poikilocytosis 1+ Anisocytosis 1+ Microcytosis 2+ Spherocytes 1+ Tear Drop Cells 1+ Ovalocytes 1+ Sodium Level 139 Potassium Level 4.6 Chloride Level 102 Carbon Dioxide Level 24 Anion Gap 13 Blood Urea Nitrogen 75 H Creatinine 5.04 H Est Glomerular 9 L Filtrat Rate mL/min Glucose Level 155 Calcium Level 9.4 Magnesium Level 2.5 Total Bilirubin Direct Bilirubin Indirect Bilirubin Aspartate Amino 50 H Transf (AST/SGOT) Alanine 25 Aminotransferase (AL T/SGPT) Alkaline Phosphatase 183 H Total Protein 7.3 Albumin 3.4 Globulin 3.90 H Albumin/Globulin 0.87 Ratio Test 12/17/18 07:38 12/17/18 08:49 12/17/18 12:28 12/17/18 16:01 White Blood Count 14.4 H Red Blood Count 3.17 #L Hemoglobin 9.5 #L Hematocrit 30.8 #L Mean Corpuscular 97.2 Volume Mean Corpuscular 30.0 Hemoglobin Mean Corpuscular 30.8 L Hemoglobin Concent Red Cell 15.1 H Distribution Width Platelet Count 184 # Mean Platelet Volume 10.5 H Immature 1.800 H Granulocytes % Neutrophils % 81.3 H Lymphocytes % 7.3 L Monocytes % 8.2 Eosinophils % 1.1 Basophils % 0.3 Nucleated Red Blood 0.0 Cells % Immature 0.260 H Granulocytes # Neutrophils # 11.7 H Lymphocytes # 1.1 Monocytes # 1.2 H Eosinophils # 0.2 Basophils # 0.0 Nucleated Red Blood 0.0 Cells # Bedside Glucose 193 121 119 Test 12/17/18 16:36 Platelet Count 176 Prothrombin Time 16.2 H Prothrombin Time 1.3 Ratio INR International 1.29 Normalized Ratio Activated 28.2 Partial Thromboplast Time Thrombin Time 13.0 L Serum HCG, NEGATIVE Qualitative Medications Medication Current Medications Ondansetron HCl (Zofran Inj) 4 mg Q6H PRN IV NAUSEA AND/OR VOMITING; Start 12/06/18 at 09:30 Albuterol (Proventil 0.083% (Neb)) 2.5 mg Q2H RESP THERAPY PRN NEB SHORTNESS OF BREATH; Start 12/06/18 at 09:30 Docusate Sodium (Colace) 100 mg Q12H PRN PO CONSTIPATION; Start 12/06/18 at 09:30 Magnesium Hydroxide (Milk Of Mag) 30 ml DAILY PRN PO CONSTIPATION; Start 12/06/18 at 09:30 Aspirin (Aspirin) 81 mg DAILY PO Last administered on 12/16/18at 07:58; Admin Dose 81 MG; Start 12/06/18 at 10:30 Brimonidine Tartrate (Alphagan 0.2%) 1 drop DAILY BOTH EYES Last administered on 12/17/18at 08:56; Admin Dose 1 DROP; Start 12/06/18 at 11:00 Calcium Acetate (Phoslo) 667 mg WITH MEALS PO Last administered on 12/16/18at 16:41; Admin Dose 667 MG; Start 12/06/18 at 12:00 Docusate Sodium (Colace) 200 mg DAILY PO ; Start 12/06/18 at 10:30; Status Hold Lactulose (Enulose) 20 gm BID PO Last administered on 12/16/18 08:02; Admin Dose 20 GM; Start 12/06/18 at 21:00 Montelukast Sodium (Singulair) 10 mg HS PO ; Start 12/06/18 at 21:00; Status Hold Multivit/Ca Carb/ B Cmplx/FA/Prenat (Mariaelena-Rosas) 1 tab DAILY PO Last administered on 12/16/18 08:02; Admin Dose 1 TAB; Start 12/06/18 at 10:30 Norepinephrine 250 ml @ 1.875 mls/ hr TITRATE IV Last administered on 12/07/18 13:25; Admin Dose 56.25 MLS/HR; Start 12/06/18 at 13:00 Atropine Sulfate (Atropine (Syringe)) 1 mg PRN PRN IV prn Last administered on 12/06/18 16:49; Admin Dose 1 MG; Start 12/06/18 at 16:00 Midazolam HCl 50 ml @ 1 mls/hr TITRATE IV Last administered on 12/09/18 05:09; Admin Dose 4 MLS/HR; Start 12/06/18 at 16:30 Vancomycin HCl (Vanco Iv Per Pharmacy) VANCOMYCIN PER PHARMACY PER PROTOCOL XX ; Start 12/06/18 at 17:30 Cefepime HCl 50 ml @ 100 mls/hr Q24H IVPB Last administered on 12/16/18 20:08; Admin Dose 100 MLS/HR; Start 12/06/18 at 21:00 Levetiracetam 100 ml @ 400 mls/hr Q12 IVPB Last administered on 12/17/18 13:12; Admin Dose 400 MLS/HR; Start 12/06/18 at 21:00 Dopamine HCl/ Dextrose 250 ml @ 7.613 mls/ hr TITRATE IV Last administered on 12/09/18 03:03; Admin Dose 11.419 MLS/HR; Start 12/06/18 at 17:30 Acetaminophen (Tylenol Supp) 650 mg Q4H PRN [place] TEMP > 37C; Start 12/06/18 at 18:30 Meperidine HCl (Demerol) 12.5 mg Q4H PRN IV POST OPERATIVE SHIVERING; Start 12/06/18 at 18:30 Meperidine HCl (Demerol) 25 mg Q4H PRN IV POST OPERATIVE SHIVERING; Start 12/06/18 at 18:30 Eye Lubricant (Akwa Oint) 1 applic Q6 BOTH EYES Last administered on 12/17/18 17:46; Admin Dose 1 APPLIC; Start 12/07/18 at 00:00 Eye Lubricant (Artificial Tears Oph) 2 drop Q6 BOTH EYES Last administered on 12/17/18 17:46; Admin Dose 2 DROP; Start 12/07/18 at 00:00 Magnesium Sulfate 50 ml @ 25 mls/hr PRN PRN IVPB IV PROTOCOL; Start 12/06/18 at 20:30 Potassium Chloride 50 ml @ 25 mls/hr PRN PRN IVPB IV PROTOCOL Last administered on 12/07/18 08:33; Admin Dose 25 MLS/HR; Start 12/06/18 at 20:30 Heparin Sodium (Porcine) (Heparin (1000 Units/ml)) 4,000 unit AFTER DIALYSIS CATHETER ; Start 12/06/18 at 22:00 Albumin Human 100 ml @ 100 mls/hr WITH DIALYSIS PRN IV SBP <90 DURING DIALYSIS Last administered on 12/17/18 11:47; Admin Dose 100 MLS/HR; Start 12/06/18 at 22:00 Sodium Chloride (NS) -To prime the dialy... DIRECTED FOR HD PRN IV HD; Start 12/06/18 at 22:00 Phenytoin 200 mg/ Sodium Chloride 54 ml @ 112 mls/hr AM IV Last administered on 12/16/18 09:34; Admin Dose 112 MLS/HR; Start 12/07/18 at 09:00 Phenytoin 200 mg/ Sodium Chloride 54 ml @ 112 mls/hr PC LUNCH IV Last administered on 12/17/18 13:24; Admin Dose 112 MLS/HR; Start 12/07/18 at 12:30 Phenytoin 300 mg/ Sodium Chloride 56 ml @ 112 mls/hr 2100 IV Last administered on 12/16/18 20:20; Admin Dose 112 MLS/HR; Start 12/07/18 at 21:00 Fentanyl 100 ml @ 2.5 mls/hr TITRATE IV Last administered on 12/08/18 06:27; Admin Dose 2.5 MLS/HR; Start 12/08/18 at 06:30 Diagnostic Test (Pha) (Accu-Chek) 1 ea 02 XX Last administered on 12/13/18at 01:36; Admin Dose 1 EA; Start 12/09/18 at 02:00 Miscellaneous Information 1 ea NOTE XX ; Start 12/08/18 at 11:30 Glucose (Glutose) 15 gm Q15M PRN PO DECREASED GLUCOSE; Start 12/08/18 at 11:30 Glucose (Glutose) 22.5 gm Q15M PRN PO DECREASED GLUCOSE; Start 12/08/18 at 11:30 Dextrose (D50w Syringe) 25 ml Q15M PRN IV DECREASED GLUCOSE; Start 12/08/18 at 11:30 Dextrose (D50w Syringe) 50 ml Q15M PRN IV DECREASED GLUCOSE; Start 12/08/18 at 11:30 Glucagon (Glucagen) 1 mg Q15M PRN IM DECREASED GLUCOSE; Start 12/08/18 at 11:30 Glucose (Glutose) 15 gm Q15M PRN BUCCAL DECREASED GLUCOSE; Start 12/08/18 at 11:30 Collagenase (Santyl) 1 applic DAILY TOP Last administered on 12/17/18at 08:56; Admin Dose 1 APPLIC; Start 12/10/18 at 09:00 Diagnostic Test (Pha) (Accu-Chek) 1 ea Q4 XX Last administered on 12/14/18at 08:21; Admin Dose 1 EA; Start 12/11/18 at 13:00 Acetaminophen (Tylenol Liquid) 650 mg Q6H PRN GTB MILD PAIN(1-3)OR ELEVATED TEMP Last administered on 12/16/18at 00:16; Admin Dose 650 MG; Start 12/11/18 at 20:30 Fluconazole/ Sodium Chloride 50 ml @ 50 mls/hr Q24H IVPB Last administered on 12/17/18at 14:47; Admin Dose 50 MLS/HR; Start 12/12/18 at 14:00 Insulin Aspart (Novolog Insulin Pen) NOVOLOG *MODERATE* ALGORITHM Q4 SC Last administered on 12/17/18at 08:54; Admin Dose 4 UNIT; Start 12/12/18 at 13:00 Metronidazole 100 ml @ 100 mls/hr Q6 IVPB Last administered on 12/17/18at 13:35; Admin Dose 100 MLS/HR; Start 12/13/18 at 12:00 Lorazepam (Ativan) 1 mg Q10MIN PRN IV SEIZURES Last administered on 12/14/18 17:16; Admin Dose 1 MG; Start 12/13/18 at 13:30 Epoetin Man-epbx (Retacrit) 6,000 unit TuThSa@1700 SC Last administered on 12/16/18at 18:37; Admin Dose 6,000 UNIT; Start 12/16/18 at 17:00 Vancomycin HCl 250 ml @ 125 mls/hr Q96H IVPB Last administered on 12/15/18at 17:52; Admin Dose 125 MLS/HR; Start 12/15/18 at 18:00 Insulin Glargine (Lantus) 35 units DAILY@0800 SC Last administered on 12/17/18at 08:53; Admin Dose 35 UNITS; Start 12/17/18 at 08:00 Miscellaneous Information 1 ea NOTE XX ; Start 12/16/18 at 10:00 Glucose (Glutose) 15 gm Q15M PRN PO DECREASED GLUCOSE; Start 12/16/18 at 10:00 Glucose (Glutose) 22.5 gm Q15M PRN PO DECREASED GLUCOSE; Start 12/16/18 at 10:00 Dextrose (D50w Syringe) 25 ml Q15M PRN IV DECREASED GLUCOSE; Start 12/16/18 at 10:00 Dextrose (D50w Syringe) 50 ml Q15M PRN IV DECREASED GLUCOSE; Start 12/16/18 at 10:00 Glucagon (Glucagen) 1 mg Q15M PRN IM DECREASED GLUCOSE; Start 12/16/18 at 10:00 Glucose (Glutose) 15 gm Q15M PRN BUCCAL DECREASED GLUCOSE; Start 12/16/18 at 10:00 Hydralazine HCl (Apresoline) 10 mg Q4H PRN IV bp Last administered on 12/17/18at 07:03; Admin Dose 10 MG; Start 12/17/18 at 07:00 Carvedilol (Coreg) 6.25 mg BID NGT ; Start 12/17/18 at 21:00 Famotidine (Pepcid) 20 mg Q48H PO ; Start 12/19/18 at 09:00 MINDY PERDOMO MD Dec 17, 2018 18:11
--- NOTE | 2018-12-17 18:31 | OPPN ---
Date/Time of Note Date/Time of Note DATE: 12/17/18 TIME: 18:28 Proc Note GI Procedure Date 12/17/18 Indication: treatment Pre-procedure Diagnosis Enteral feeding requirement Post-procedure Diagnosis Impression: Uneventful PEG. Fr#20 GT Plan: Restart feedings in AM Procedure Performed: Other (EGD+PEG) Surgeon see signature line Care Worker none Anesthesia Type: MAC Tourniquet Time none EBL none Transfusion required none Biopsy 1: none Grafts/Implants none Tubes/Drains none Complication(s) none Disposition: other (ICU) Procedure Description After informed consent, with the patient/relatives understanding the procedure, its indications, potential risks and complications, including but not limited to: Allergic reaction, bleeding, perforation or infection, and all after all pertinent questions were answered to the patient's satisfaction, patient /relative signed witnessed informed consent. Following this, premedication was administered slowly IV push under care of cardiovascular respiratory monitoring with pulse oximetry, and automatic blood pressure, and residential monitor. Once to sedative effect was achieved the patient was placed in the left lateral decubitus, the panendoscope was introduced and advanced under visual control. Careful examination of the upper gastrointestinal tract, both on insertion as well as withdrawal of the instrument disclosed following findings: ESOPHAGUS: The mucosa of the entire esophagus was carefully examined and showed the following findings: []The mucosa appears within normal limits. There is no evidence of esophagitis, varices, neoplasm or stricture. No hiatal hernia identified. STOMACH: Upon entrance to the stomach air was insufflated, the gastric edwards distended normally. The mucosa of the fundus, body and antrum of the stomach was carefully examined both head-on and on retroflexion, and showed the following findings: []The mucosa appears within normal limits with no abnormalities. There is no evidence of gastritis, ulcers or neoplasm. PYLORUS: The pylorus was carefully examined and showed the following findings: []The pylorus appears patent and within normal limits, with no evidence of gastric outlet obstruction. DUODENUM: The duodenal mucosa was carefully examined in the duodenal bulb as well as the second portion of the duodenum and showed the following findings: []The mucosa appears unremarkable with no evidence of duodenitis, ulcer or neoplasm. The instrument was then brought back to the stomach and the anterior wall mid- body was identified by transillumination and "finger indentation", this area was then marked in the anterior wall of the abdomen, it was cleansed with Betadine and infiltrated with Xylocaine 1%. Following this a trocar needle was introduced into the gastric lumen under visual control with the endoscope, once in the gastric lumen a guide wire was advanced and secured with a polypectomy snare, at this point the endoscope was withdrawn bringing the guidewire out through the patient's mouth. Following this a American #20 gastrostomy tube was introduced over the guidewire, with the Saciglesia-Vinderek technique without difficulty, a small incision was performed in the skin to allow easy passage of the G-tube, once the position of the gastrostomy was confirmed, the external stopper and connectors were installed, and a clean dressing applied. The patient tolerated the procedure well and was transferred out of the endoscopy suite awake, and in good condition to continue recovery under observation, feedings will start in the next 12-24 hours and the discharge in the care will be instituted. Copies To: CC: MINDY PERDOMO MD ; MINDY PERDOMO MD Dec 17, 2018 18:31
[2018-12-17] MEDS: CEFEPIME 1GM/50 ML (PMX) 50 ML IVPB SCH (20:27)
[2018-12-17] MEDS: PHENYTOIN 300 MG in SOD CHLORIDE 0.9% 50 ML IV SCH (20:54)
[2018-12-17] MEDS ORDERED: ENOXAPARIN 100 MG/ML SYG SC SCH (21:00)
[2018-12-18] VITALS (34 sets, daily range): BP systolic 86–142; BP diastolic 44–86; PULSE 65–79; RESP 0–28
[2018-12-18] MEDS: INSULIN ASPART [NOVOLOG] 3 ML PEN SC SCH ×6 (01:00→20:38)
[2018-12-18] MEDS: ACCU-CHEK XX SCH ×7 (01:00→20:38)
[2018-12-18] MEDS: ARTIFICIAL TEARS 15 ML OPH BOTH EYES SCH ×5 (01:05→23:34)
[2018-12-18] MEDS: metroNIDAZOLE 500 MG/NS (PMX) 100 ML IVPB SCH ×5 (01:06→23:37)
[2018-12-18] MEDS: OCULAR LUBRICANT 3.5 GM OPH OINT BOTH EYES SCH ×5 (01:06→23:34)
[2018-12-18] MEDS: LACTULOSE 30ML CUP PO SCH ×2 (08:38→20:34)
[2018-12-18] MEDS: CALCIUM ACETATE 667 MG CAP PO SCH ×3 (08:39→17:03)
[2018-12-18] MEDS: ASPIRIN 81 MG TAB PO SCH (08:39)
[2018-12-18] MEDS: MULTIVIT/CA CARB/B CMPLX/FA TAB PO SCH (08:39)
[2018-12-18] MEDS: LEVETIRACETAM 500 MG (PMX) 100 ML IVPB SCH ×2 (08:40→22:31)
[2018-12-18] MEDS: BRIMONIDINE 0.2% 5 ML BTL BOTH EYES SCH (08:41)
[2018-12-18] MEDS: INSULIN GLARGINE [LANTus] (100 UNITS/ML) SYG SC SCH (08:50)
[2018-12-18] MEDS: COLLAGENASE 5 GM (UD JAR) TOP SCH (08:51)
--- NOTE | 2018-12-18 09:14 | PN ---
Date/Time of Note Date/Time of Note DATE: 12/18/18 TIME: 09:08 Assessment/Plan VTE Prophylaxis Risk score (from Nsg)>0 risk: 13 SCD applied (from Nsg): Yes Pharmacological prophylaxis: heparin Lines/Catheters IV Catheter Type (from Nrsg): Central Line Central line still needed: Yes Urinary Cath still in place: No Assessment/Plan Assessment/Plan 1. Sepsis secondary to staph bacteremia and aspiration- improving - Patient remains afebrile and WBC normalized. - ID on board and appreciate recommendations. Continue on current antibiotics - Blood cultures noted with repeat negative 2. R proximal femoral DVT - heparin drip started and will transition to Eliquis once procedures completed - noted with DVT in IJ but given multiple line placements in HD patient, may be scaring as well causing noncompressible. Regardless, patient is being treated for DVT 3. s/p Cardiac arrest with ROSC - s/p hypothermia protocol - Patient initially with NSVT and given prolonged QT and placement on Amiodarone went into torsades then coded. Patient coded another 3 times total secondary to PEA arrest with ROSC - Cardiology on board and appreciate recommendations. may need cardiac cath if shows signs of neurological recovery 4. Chronic blindness - Chronic left-sided blindness secondary to diabetic retinopathy, patient also has moderate to severe right-sided blindness secondary to diabetic retinopathy 5. ?Arrhythmia, NSVT- resolved - Patient has ? afib and may have had afib with aberrancy but initial event was not captured - Cardiology on board and appreciate consultation - noted on Coumadin on med rec but INR normal at time of presentation. Will need to touch base with fam vs patient when she recovers on why she takes Coumadin 6. DM - continue Lantus. better controlled 7. ESRD on HD - Nephrology, Dr. Reddy, on board and appreciate consultation. T/T/S as outpatient but MWF while inpatient 8. h/o CVA - continue current medications 9. HTN - no pressor support required - continue on BB and PRN 10. Anemia - stable - secondary to renal disease - continue on Epogen - H/H remains stable and no need for transfusions at this time 11. Disposition - Awaiting ENT for trach placement - CM on board for placement - Palliative consultation appreciated. >35 minutes of critical care time spent with patient Result Diagram: 12/18/18 0648 12/17/18 0400 Results 24hrs Laboratory Tests Test 12/17/18 12:28 12/17/18 16:01 12/17/18 16:36 12/17/18 20:33 Bedside Glucose 121 119 104 Platelet Count 176 Prothrombin Time 16.2 H Prothrombin Time 1.3 Ratio INR International 1.29 Normalized Ratio Activated 28.2 Partial Thromboplast Time Thrombin Time 13.0 L Serum HCG, NEGATIVE Qualitative Test 12/18/18 01:08 12/18/18 04:00 12/18/18 04:18 12/18/18 06:33 Bedside Glucose 75 70 83 Magnesium Level 2.4 Prealbumin 18.2 Phenytoin (Dilantin) 12.8 Level Test 12/18/18 06:48 12/18/18 08:49 White Blood Count 9.3 # Red Blood Count 3.17 L Hemoglobin 9.4 L Hematocrit 30.5 L Mean Corpuscular 96.2 Volume Mean Corpuscular 29.7 Hemoglobin Mean Corpuscular 30.8 L Hemoglobin Concent Red Cell 14.8 H Distribution Width Platelet Count 174 Mean Platelet Volume 9.9 Immature 1.300 H Granulocytes % Neutrophils % 78.6 H Lymphocytes % 8.3 L Monocytes % 10.4 Eosinophils % 1.3 Basophils % 0.1 Nucleated Red Blood 0.0 Cells % Immature 0.120 H Granulocytes # Neutrophils # 7.3 Lymphocytes # 0.8 Monocytes # 1.0 H Eosinophils # 0.1 Basophils # 0.0 Nucleated Red Blood 0.0 Cells # Bedside Glucose 86 Subjective 24 Hr Interval Summary Free Text/Dictation Patient remains stable but still nonresponsive off sedation. PEG placed yesterday and awaiting ENT consult for trach placement. No acute overnight roxanne nts. Exam/Review of Systems Exam Vitals Vital Signs Date Temp Pulse Resp B/P (MAP) Pulse Ox O2 O2 Flow FiO2 Time Delivery Rate 12/18/18 71 08:00 12/18/18 30 07:30 12/18/18 0 116/51 100 Mechanical 06:00 (72) Ventilator 12/18/18 98.1 03:00 Intake and Output 12/17/18 12/17/18 12/18/18 1515:00 23:00 07:00 IntakeIntake Total 354 ml 206 ml 200 ml OutputOutput Total 3000 ml 0 ml 0 ml BalanceBalance -2646 ml 206 ml 200 ml Exam General: Patient is intubated and nonresponsive Eyes: EOMI, left pupil is alfredo out chronically. right sluggish to react Neck: Supple, nontender, midline. multiple scars present Lungs: Coarse to auscultation bilaterally. no wheezing Cardiovascular: S1, S2, regular rate and rhythm, no obvious murmurs Gastrointestinal: soft, non-tender to palpation, protuberant, bowel sounds heard. Ext: swelling UE b/l R>L. no edema lower extremities Neurological: No purposeful movement, nonresponsive Skin: No new skin lesions Results Results 24hrs Laboratory Tests Test 12/17/18 12:28 12/17/18 16:01 12/17/18 16:36 12/17/18 20:33 Bedside Glucose 121 119 104 Platelet Count 176 Prothrombin Time 16.2 H Prothrombin Time 1.3 Ratio INR International 1.29 Normalized Ratio Activated 28.2 Partial Thromboplast Time Thrombin Time 13.0 L Serum HCG, NEGATIVE Qualitative Test 12/18/18 01:08 12/18/18 04:00 12/18/18 04:18 12/18/18 06:33 Bedside Glucose 75 70 83 Magnesium Level 2.4 Prealbumin 18.2 Phenytoin (Dilantin) 12.8 Level Test 12/18/18 06:48 12/18/18 08:49 White Blood Count 9.3 # Red Blood Count 3.17 L Hemoglobin 9.4 L Hematocrit 30.5 L Mean Corpuscular 96.2 Volume Mean Corpuscular 29.7 Hemoglobin Mean Corpuscular 30.8 L Hemoglobin Concent Red Cell 14.8 H Distribution Width Platelet Count 174 Mean Platelet Volume 9.9 Immature 1.300 H Granulocytes % Neutrophils % 78.6 H Lymphocytes % 8.3 L Monocytes % 10.4 Eosinophils % 1.3 Basophils % 0.1 Nucleated Red Blood 0.0 Cells % Immature 0.120 H Granulocytes # Neutrophils # 7.3 Lymphocytes # 0.8 Monocytes # 1.0 H Eosinophils # 0.1 Basophils # 0.0 Nucleated Red Blood 0.0 Cells # Bedside Glucose 86 Medications Medication Current Medications Ondansetron HCl (Zofran Inj) 4 mg Q6H PRN IV NAUSEA AND/OR VOMITING; Start 12/06/18 at 09:30 Albuterol (Proventil 0.083% (Neb)) 2.5 mg Q2H RESP THERAPY PRN NEB SHORTNESS OF BREATH; Start 12/06/18 at 09:30 Docusate Sodium (Colace) 100 mg Q12H PRN PO CONSTIPATION; Start 12/06/18 at 09:30 Magnesium Hydroxide (Milk Of Mag) 30 ml DAILY PRN PO CONSTIPATION; Start 12/06/18 at 09:30 Aspirin (Aspirin) 81 mg DAILY PO Last administered on 12/18/18 08:39; Admin Dose 81 MG; Start 12/06/18 at 10:30 Brimonidine Tartrate (Alphagan 0.2%) 1 drop DAILY BOTH EYES Last administered on 12/18/18 08:41; Admin Dose 1 DROP; Start 12/06/18 at 11:00 Calcium Acetate (Phoslo) 667 mg WITH MEALS PO Last administered on 12/18/18 08:39; Admin Dose 667 MG; Start 12/06/18 at 12:00 Docusate Sodium (Colace) 200 mg DAILY PO ; Start 12/06/18 at 10:30; Status Hold Lactulose (Enulose) 20 gm BID PO Last administered on 12/18/18 08:38; Admin Dose 20 GM; Start 12/06/18 at 21:00 Montelukast Sodium (Singulair) 10 mg HS PO ; Start 12/06/18 at 21:00; Status Hold Multivit/Ca Carb/ B Cmplx/FA/Prenat (Mariaelena-Rosas) 1 tab DAILY PO Last administered on 12/18/18 08:39; Admin Dose 1 TAB; Start 12/06/18 at 10:30 Norepinephrine 250 ml @ 1.875 mls/ hr TITRATE IV Last administered on 12/07/18 13:25; Admin Dose 56.25 MLS/HR; Start 12/06/18 at 13:00 Atropine Sulfate (Atropine (Syringe)) 1 mg PRN PRN IV prn Last administered on 12/06/18 16:49; Admin Dose 1 MG; Start 12/06/18 at 16:00 Midazolam HCl 50 ml @ 1 mls/hr TITRATE IV Last administered on 12/09/18 05:09; Admin Dose 4 MLS/HR; Start 12/06/18 at 16:30 Vancomycin HCl (Vanco Iv Per Pharmacy) VANCOMYCIN PER PHARMACY PER PROTOCOL XX ; Start 12/06/18 at 17:30 Cefepime HCl 50 ml @ 100 mls/hr Q24H IVPB Last administered on 12/17/18at 20:27; Admin Dose 100 MLS/HR; Start 12/06/18 at 21:00 Levetiracetam 100 ml @ 400 mls/hr Q12 IVPB Last administered on 12/18/18at 08:40; Admin Dose 400 MLS/HR; Start 12/06/18 at 21:00 Dopamine HCl/ Dextrose 250 ml @ 7.613 mls/ hr TITRATE IV Last administered on 12/09/18at 03:03; Admin Dose 11.419 MLS/HR; Start 12/06/18 at 17:30 Acetaminophen (Tylenol Supp) 650 mg Q4H PRN [place] TEMP > 37C; Start 12/06/18 at 18:30 Meperidine HCl (Demerol) 12.5 mg Q4H PRN IV POST OPERATIVE SHIVERING; Start 12/06/18 at 18:30 Meperidine HCl (Demerol) 25 mg Q4H PRN IV POST OPERATIVE SHIVERING; Start 12/06/18 at 18:30 Eye Lubricant (Akwa Oint) 1 applic Q6 BOTH EYES Last administered on 12/18/18at 05:07; Admin Dose 1 APPLIC; Start 12/07/18 at 00:00 Eye Lubricant (Artificial Tears Oph) 2 drop Q6 BOTH EYES Last administered on 12/18/18at 05:06; Admin Dose 2 DROP; Start 12/07/18 at 00:00 Magnesium Sulfate 50 ml @ 25 mls/hr PRN PRN IVPB IV PROTOCOL; Start 12/06/18 at 20:30 Potassium Chloride 50 ml @ 25 mls/hr PRN PRN IVPB IV PROTOCOL Last administered on 12/07/18at 08:33; Admin Dose 25 MLS/HR; Start 12/06/18 at 20:30 Heparin Sodium (Porcine) (Heparin (1000 Units/ml)) 4,000 unit AFTER DIALYSIS CATHETER ; Start 12/06/18 at 22:00 Albumin Human 100 ml @ 100 mls/hr WITH DIALYSIS PRN IV SBP <90 DURING DIALYSIS Last administered on 12/17/18at 11:47; Admin Dose 100 MLS/HR; Start 12/06/18 at 22:00 Sodium Chloride (NS) -To prime the dialy... DIRECTED FOR HD PRN IV HD; Start 12/06/18 at 22:00 Phenytoin 200 mg/ Sodium Chloride 54 ml @ 112 mls/hr AM IV Last administered on 12/16/18 09:34; Admin Dose 112 MLS/HR; Start 12/07/18 at 09:00 Phenytoin 200 mg/ Sodium Chloride 54 ml @ 112 mls/hr PC LUNCH IV Last administered on 12/17/18 13:24; Admin Dose 112 MLS/HR; Start 12/07/18 at 12:30 Phenytoin 300 mg/ Sodium Chloride 56 ml @ 112 mls/hr 2100 IV Last administered on 12/17/18at 20:54; Admin Dose 112 MLS/HR; Start 12/07/18 at 21:00 Fentanyl 100 ml @ 2.5 mls/hr TITRATE IV Last administered on 12/08/18 06:27; Admin Dose 2.5 MLS/HR; Start 12/08/18 at 06:30 Diagnostic Test (Pha) (Accu-Chek) 1 ea 02 XX Last administered on 12/13/18at 01:36; Admin Dose 1 EA; Start 12/09/18 at 02:00 Miscellaneous Information 1 ea NOTE XX ; Start 12/08/18 at 11:30 Glucose (Glutose) 15 gm Q15M PRN PO DECREASED GLUCOSE; Start 12/08/18 at 11:30 Glucose (Glutose) 22.5 gm Q15M PRN PO DECREASED GLUCOSE; Start 12/08/18 at 11:30 Dextrose (D50w Syringe) 25 ml Q15M PRN IV DECREASED GLUCOSE; Start 12/08/18 at 11:30 Dextrose (D50w Syringe) 50 ml Q15M PRN IV DECREASED GLUCOSE; Start 12/08/18 at 11:30 Glucagon (Glucagen) 1 mg Q15M PRN IM DECREASED GLUCOSE; Start 12/08/18 at 11:30 Glucose (Glutose) 15 gm Q15M PRN BUCCAL DECREASED GLUCOSE; Start 12/08/18 at 11:30 Collagenase (Santyl) 1 applic DAILY TOP Last administered on 12/18/18at 08:51; Admin Dose 1 APPLIC; Start 12/10/18 at 09:00 Diagnostic Test (Pha) (Accu-Chek) 1 ea Q4 XX Last administered on 12/14/18 08:21; Admin Dose 1 EA; Start 12/11/18 at 13:00 Acetaminophen (Tylenol Liquid) 650 mg Q6H PRN GTB MILD PAIN(1-3)OR ELEVATED TEMP Last administered on 12/16/18at 00:16; Admin Dose 650 MG; Start 12/11/18 at 20:30 Fluconazole/ Sodium Chloride 50 ml @ 50 mls/hr Q24H IVPB Last administered on 12/17/18at 14:47; Admin Dose 50 MLS/HR; Start 12/12/18 at 14:00 Insulin Aspart (Novolog Insulin Pen) NOVOLOG *MODERATE* ALGORITHM Q4 SC Last administered on 12/17/18 08:54; Admin Dose 4 UNIT; Start 12/12/18 at 13:00 Metronidazole 100 ml @ 100 mls/hr Q6 IVPB Last administered on 12/18/18 05:06; Admin Dose 100 MLS/HR; Start 12/13/18 at 12:00 Lorazepam (Ativan) 1 mg Q10MIN PRN IV SEIZURES Last administered on 12/14/18at 17:16; Admin Dose 1 MG; Start 12/13/18 at 13:30 Epoetin Man-epbx (Retacrit) 6,000 unit TuThSa@1700 SC Last administered on 12/16/18at 18:37; Admin Dose 6,000 UNIT; Start 12/16/18 at 17:00 Vancomycin HCl 250 ml @ 125 mls/hr Q96H IVPB Last administered on 12/15/18at 17:52; Admin Dose 125 MLS/HR; Start 12/15/18 at 18:00 Insulin Glargine (Lantus) 35 units DAILY@0800 SC Last administered on 12/18/18at 08:50; Admin Dose 35 UNITS; Start 12/17/18 at 08:00 Miscellaneous Information 1 ea NOTE XX ; Start 12/16/18 at 10:00 Glucose (Glutose) 15 gm Q15M PRN PO DECREASED GLUCOSE; Start 12/16/18 at 10:00 Glucose (Glutose) 22.5 gm Q15M PRN PO DECREASED GLUCOSE; Start 12/16/18 at 10:00 Dextrose (D50w Syringe) 25 ml Q15M PRN IV DECREASED GLUCOSE; Start 12/16/18 at 10:00 Dextrose (D50w Syringe) 50 ml Q15M PRN IV DECREASED GLUCOSE; Start 12/16/18 at 10:00 Glucagon (Glucagen) 1 mg Q15M PRN IM DECREASED GLUCOSE; Start 12/16/18 at 10:00 Glucose (Glutose) 15 gm Q15M PRN BUCCAL DECREASED GLUCOSE; Start 12/16/18 at 10:00 Hydralazine HCl (Apresoline) 10 mg Q4H PRN IV bp Last administered on 12/17/18at 07:03; Admin Dose 10 MG; Start 12/17/18 at 07:00 Carvedilol (Coreg) 6.25 mg BID NGT Last administered on 12/18/18at 08:39; Admin Dose 6.25 MG; Start 12/17/18 at 21:00 Famotidine (Pepcid) 20 mg Q48H PO ; Start 12/19/18 at 09:00 BEAN BEST MD Dec 18, 2018 09:14
[2018-12-18] MEDS ORDERED: HEPARIN 1000 UNITS/ML 10 ML INJ IV PRN ×2 (09:30)
[2018-12-18] MEDS: SOD CHLORIDE 0.9% IV SCH ×2 (09:47→12:38)
[2018-12-18] MEDS: PHENYTOIN IV SCH ×2 (09:47→12:38)
--- NOTE | 2018-12-18 09:50 | CONS ---
Consult Date/Type/Reason Admit Date/Time Dec 06, 2018 at 12:45 Initial Consult Date 12/06/18 Type of Consult Pulmonary Requesting Provider: BOZENA PARK Date/Time of Note DATE: 12/18/18 TIME: 09:47 Subjective Patient comfortable this morning. No respiratory distress grimaces to painful stimuli but not opening eyes or following commands. Objective Vital Signs Date Temp Pulse Resp B/P (MAP) Pulse Ox O2 O2 Flow FiO2 Time Delivery Rate 12/18/18 73 0 133/64 100 09:00 (87) 12/18/18 98.9 Mechanical 08:00 Ventilator 12/18/18 30 07:30 Intake and Output 12/17/18 12/17/18 12/18/18 1515:00 23:00 07:00 IntakeIntake Total 354 ml 206 ml 200 ml OutputOutput Total 3000 ml 0 ml 0 ml BalanceBalance -2646 ml 206 ml 200 ml Exam GENERAL: Morbidly obese young lady orally intubated on mechanical ventilation VITAL SIGNS: per chart NECK: Supple. No JVD or lymphadenopathy. CARDIAC EXAM: S1, S2. No added sounds or murmurs. CHEST: Diminished air entry bilaterally ABDOMEN: Soft, nontender. No guarding or rebound. EXTREMITIES: No cyanosis, clubbing, edema +2 NEUROLOGIC: Generalized weakness. Vent Setting Ventilator Support Mode: AC Fraction of Inspired Oxygen pe: 30 Positive End Expiratory Pressu: 5.0 Results/Medications Result Diagram: 12/18/18 0648 12/17/18 0400 Results 24 hrs Laboratory Tests Test 12/17/18 12:28 12/17/18 16:01 12/17/18 16:36 12/17/18 20:33 Bedside Glucose 121 119 104 Platelet Count 176 Prothrombin Time 16.2 H Prothrombin Time 1.3 Ratio INR International 1.29 Normalized Ratio Activated 28.2 Partial Thromboplast Time Thrombin Time 13.0 L Serum HCG, NEGATIVE Qualitative Test 12/18/18 01:08 12/18/18 04:00 12/18/18 04:18 12/18/18 06:33 Bedside Glucose 75 70 83 Magnesium Level 2.4 Prealbumin 18.2 Phenytoin (Dilantin) 12.8 Level Test 12/18/18 06:48 12/18/18 08:49 White Blood Count 9.3 # Red Blood Count 3.17 L Hemoglobin 9.4 L Hematocrit 30.5 L Mean Corpuscular 96.2 Volume Mean Corpuscular 29.7 Hemoglobin Mean Corpuscular 30.8 L Hemoglobin Concent Red Cell 14.8 H Distribution Width Platelet Count 174 Mean Platelet Volume 9.9 Immature 1.300 H Granulocytes % Neutrophils % 78.6 H Lymphocytes % 8.3 L Monocytes % 10.4 Eosinophils % 1.3 Basophils % 0.1 Nucleated Red Blood 0.0 Cells % Immature 0.120 H Granulocytes # Neutrophils # 7.3 Lymphocytes # 0.8 Monocytes # 1.0 H Eosinophils # 0.1 Basophils # 0.0 Nucleated Red Blood 0.0 Cells # Bedside Glucose 86 Medications Current Medications Ondansetron HCl (Zofran Inj) 4 mg Q6H PRN IV NAUSEA AND/OR VOMITING; Start 12/06/18 at 09:30 Albuterol (Proventil 0.083% (Neb)) 2.5 mg Q2H RESP THERAPY PRN NEB SHORTNESS OF BREATH; Start 12/06/18 at 09:30 Docusate Sodium (Colace) 100 mg Q12H PRN PO CONSTIPATION; Start 12/06/18 at 09:30 Magnesium Hydroxide (Milk Of Mag) 30 ml DAILY PRN PO CONSTIPATION; Start 12/06/18 at 09:30 Aspirin (Aspirin) 81 mg DAILY PO Last administered on 12/18/18at 08:39; Admin Dose 81 MG; Start 12/06/18 at 10:30 Brimonidine Tartrate (Alphagan 0.2%) 1 drop DAILY BOTH EYES Last administered on 12/18/18at 08:41; Admin Dose 1 DROP; Start 12/06/18 at 11:00 Calcium Acetate (Phoslo) 667 mg WITH MEALS PO Last administered on 12/18/18at 08:39; Admin Dose 667 MG; Start 12/06/18 at 12:00 Docusate Sodium (Colace) 200 mg DAILY PO ; Start 12/06/18 at 10:30; Status Hold Lactulose (Enulose) 20 gm BID PO Last administered on 12/18/18at 08:38; Admin Dose 20 GM; Start 12/06/18 at 21:00 Montelukast Sodium (Singulair) 10 mg HS PO ; Start 12/06/18 at 21:00; Status Hold Multivit/Ca Carb/ B Cmplx/FA/Prenat (Mariaelena-Rosas) 1 tab DAILY PO Last administered on 12/18/18 08:39; Admin Dose 1 TAB; Start 12/06/18 at 10:30 Norepinephrine 250 ml @ 1.875 mls/ hr TITRATE IV Last administered on 12/07/18 13:25; Admin Dose 56.25 MLS/HR; Start 12/06/18 at 13:00 Atropine Sulfate (Atropine (Syringe)) 1 mg PRN PRN IV prn Last administered on 12/06/18 16:49; Admin Dose 1 MG; Start 12/06/18 at 16:00 Midazolam HCl 50 ml @ 1 mls/hr TITRATE IV Last administered on 12/09/18 05:09; Admin Dose 4 MLS/HR; Start 12/06/18 at 16:30 Vancomycin HCl (Vanco Iv Per Pharmacy) VANCOMYCIN PER PHARMACY PER PROTOCOL XX ; Start 12/06/18 at 17:30 Cefepime HCl 50 ml @ 100 mls/hr Q24H IVPB Last administered on 12/17/18 20:27; Admin Dose 100 MLS/HR; Start 12/06/18 at 21:00 Levetiracetam 100 ml @ 400 mls/hr Q12 IVPB Last administered on 12/18/18 08:40; Admin Dose 400 MLS/HR; Start 12/06/18 at 21:00 Dopamine HCl/ Dextrose 250 ml @ 7.613 mls/ hr TITRATE IV Last administered on 12/09/18 03:03; Admin Dose 11.419 MLS/HR; Start 12/06/18 at 17:30 Acetaminophen (Tylenol Supp) [address] TEMP > 37C; Start 12/06/18 at 18:30 Meperidine HCl (Demerol) 12.5 mg Q4H PRN IV POST OPERATIVE SHIVERING; Start 12/06/18 at 18:30 Meperidine HCl (Demerol) 25 mg Q4H PRN IV POST OPERATIVE SHIVERING; Start 12/06/18 at 18:30 Eye Lubricant (Akwa Oint) 1 applic Q6 BOTH EYES Last administered on 12/18/18 05:07; Admin Dose 1 APPLIC; Start 12/07/18 at 00:00 Eye Lubricant (Artificial Tears Oph) 2 drop Q6 BOTH EYES Last administered on 12/18/18 05:06; Admin Dose 2 DROP; Start 12/07/18 at 00:00 Magnesium Sulfate 50 ml @ 25 mls/hr PRN PRN IVPB IV PROTOCOL; Start 12/06/18 at 20:30 Potassium Chloride 50 ml @ 25 mls/hr PRN PRN IVPB IV PROTOCOL Last administered on 12/07/18 08:33; Admin Dose 25 MLS/HR; Start 12/06/18 at 20:30 Heparin Sodium (Porcine) (Heparin (1000 Units/ml)) 4,000 unit AFTER DIALYSIS CATHETER ; Start 12/06/18 at 22:00 Albumin Human 100 ml @ 100 mls/hr WITH DIALYSIS PRN IV SBP <90 DURING DIALYSIS Last administered on 12/17/18 11:47; Admin Dose 100 MLS/HR; Start 12/06/18 at 22:00 Sodium Chloride (NS) -To prime the dialy... DIRECTED FOR HD PRN IV HD; Start 12/06/18 at 22:00 Phenytoin 200 mg/ Sodium Chloride 54 ml @ 112 mls/hr AM IV Last administered on 12/16/18 09:34; Admin Dose 112 MLS/HR; Start 12/07/18 at 09:00 Phenytoin 200 mg/ Sodium Chloride 54 ml @ 112 mls/hr PC LUNCH IV Last administered on 12/17/18 13:24; Admin Dose 112 MLS/HR; Start 12/07/18 at 12:30 Phenytoin 300 mg/ Sodium Chloride 56 ml @ 112 mls/hr 2100 IV Last administered on 12/17/18 20:54; Admin Dose 112 MLS/HR; Start 12/07/18 at 21:00 Fentanyl 100 ml @ 2.5 mls/hr TITRATE IV Last administered on 12/08/18 06:27; Admin Dose 2.5 MLS/HR; Start 12/08/18 at 06:30 Diagnostic Test (Pha) (Accu-Chek) 1 ea 02 XX Last administered on 12/13/18at 01:36; Admin Dose 1 EA; Start 12/09/18 at 02:00 Miscellaneous Information 1 ea NOTE XX ; Start 12/08/18 at 11:30 Glucose (Glutose) 15 gm Q15M PRN PO DECREASED GLUCOSE; Start 12/08/18 at 11:30 Glucose (Glutose) 22.5 gm Q15M PRN PO DECREASED GLUCOSE; Start 12/08/18 at 11:30 Dextrose (D50w Syringe) 25 ml Q15M PRN IV DECREASED GLUCOSE; Start 12/08/18 at 11:30 Dextrose (D50w Syringe) 50 ml Q15M PRN IV DECREASED GLUCOSE; Start 12/08/18 at 11:30 Glucagon (Glucagen) 1 mg Q15M PRN IM DECREASED GLUCOSE; Start 12/08/18 at 11:30 Glucose (Glutose) 15 gm Q15M PRN BUCCAL DECREASED GLUCOSE; Start 12/08/18 at 11:30 Collagenase (Santyl) 1 applic DAILY TOP Last administered on 12/18/18 08:51; Admin Dose 1 APPLIC; Start 12/10/18 at 09:00 Diagnostic Test (Pha) (Accu-Chek) 1 ea Q4 XX Last administered on 12/14/18 08:21; Admin Dose 1 EA; Start 12/11/18 at 13:00 Acetaminophen (Tylenol Liquid) 650 mg Q6H PRN GTB MILD PAIN(1-3)OR ELEVATED TEMP Last administered on 12/16/18 00:16; Admin Dose 650 MG; Start 12/11/18 at 20:30 Fluconazole/ Sodium Chloride 50 ml @ 50 mls/hr Q24H IVPB Last administered on 12/17/18 14:47; Admin Dose 50 MLS/HR; Start 12/12/18 at 14:00 Insulin Aspart (Novolog Insulin Pen) NOVOLOG *MODERATE* ALGORITHM Q4 SC Last administered on 12/17/18 08:54; Admin Dose 4 UNIT; Start 12/12/18 at 13:00 Metronidazole 100 ml @ 100 mls/hr Q6 IVPB Last administered on 12/18/18 05:06; Admin Dose 100 MLS/HR; Start 12/13/18 at 12:00 Lorazepam (Ativan) 1 mg Q10MIN PRN IV SEIZURES Last administered on 12/14/18 17:16; Admin Dose 1 MG; Start 12/13/18 at 13:30 Epoetin Man-epbx (Retacrit) 6,000 unit TuThSa@1700 SC Last administered on 12/16/18 18:37; Admin Dose 6,000 UNIT; Start 12/16/18 at 17:00 Vancomycin HCl 250 ml @ 125 mls/hr Q96H IVPB Last administered on 12/15/18at 17:52; Admin Dose 125 MLS/HR; Start 12/15/18 at 18:00 Insulin Glargine (Lantus) 35 units DAILY@0800 SC Last administered on 12/18/18at 08:50; Admin Dose 35 UNITS; Start 12/17/18 at 08:00 Miscellaneous Information 1 ea NOTE XX ; Start 12/16/18 at 10:00 Glucose (Glutose) 15 gm Q15M PRN PO DECREASED GLUCOSE; Start 12/16/18 at 10:00 Glucose (Glutose) 22.5 gm Q15M PRN PO DECREASED GLUCOSE; Start 12/16/18 at 10:00 Dextrose (D50w Syringe) 25 ml Q15M PRN IV DECREASED GLUCOSE; Start 12/16/18 at 10:00 Dextrose (D50w Syringe) 50 ml Q15M PRN IV DECREASED GLUCOSE; Start 12/16/18 at 10:00 Glucagon (Glucagen) 1 mg Q15M PRN IM DECREASED GLUCOSE; Start 12/16/18 at 10:00 Glucose (Glutose) 15 gm Q15M PRN BUCCAL DECREASED GLUCOSE; Start 12/16/18 at 10:00 Hydralazine HCl (Apresoline) 10 mg Q4H PRN IV bp Last administered on 12/17/18at 07:03; Admin Dose 10 MG; Start 12/17/18 at 07:00 Carvedilol (Coreg) 6.25 mg BID NGT Last administered on 12/18/18at 08:39; Admin Dose 6.25 MG; Start 12/17/18 at 21:00 Famotidine (Pepcid) 20 mg Q48H PO ; Start 12/19/18 at 09:00 Miscellaneous Information (* Miscellaneous Pharmacy Order) DC previous hepa... ONCE ONCE XX ; Start 12/18/18 at 09:30; Stop 12/18/18 at 09:31; Status UNV Heparin Sodium (Porcine) (Heparin (1000 Units/ml)) 8,100 unit ONCE ONCE IV ; Start 12/18/18 at 09:30; Stop 12/18/18 at 09:31; Status UNV Heparin Sodium (Porcine) (Heparin (1000 Units/ml)) 8,100 unit PER PROTOCOL PRN IV aPTT<47; Start 12/18/18 at 09:30; Status UNV Heparin Sodium (Porcine) (Heparin (1000 Units/ml)) 4,100 unit PER PROTOCOL PRN IV aPTT<47-57; Start 12/18/18 at 09:30; Status UNV Heparin Sodium (Porcine) 250 ml @ 0 mls/hr PER PROTOCOL IV ; Start 12/18/18 at 09:30; Status UNV Assessment/Plan Hospital Course (Demo Recall) Assessment 1. Cardiopulmonary arrest with likely anoxic brain injury. 2. Recent seizure history of seizures 3. Significant anemia questionable GI bleed H&H currently stable. 4. Renal insufficiency possible ATN injury 5. Acute hypoxemic respiratory failure likely secondary to aspiration pneumonia versus ARDS 6. End-stage renal failure Plan 1. Continue mechanical ventilation pending tracheostomy 2. Severe anoxic brain injury. Patient will not be weaned from mechanical ventilation. 3. Status post G-tube placement, start tube feeding 4. Renal recommendations Discharge planning. Critical care time 40 minutes. SEDRICK MORALEZ MD, [facility] Dec 18, 2018 09:50
--- NOTE | 2018-12-18 10:16 | QN ---
Documentation Comment Acute venous thromboembolism noted. Patient will be commenced on heparin drip pending tracheostomy. After which she will require at least 6 months of oral anticoagulation. SEDRICK MORALEZ MD, [facility] Dec 18, 2018 10:16
--- NOTE | 2018-12-18 10:36 | PAC ---
Date/Time of Note Date/Time of Note DATE: 12/18/18 TIME: 10:35 Post-Anesthesia Notes Post-Anesthesia Note Last documented vital signs Vital Signs Date Temp Pulse Resp B/P (MAP) Pulse Ox O2 O2 Flow FiO2 Time Delivery Rate 12/18/18 98.9 73 0 133/64 100 M.V 09:00 (87) 12/18/18 98.9 Mechanical 08:00 Ventilator 12/18/18 30 07:30 Activity: WNL Respiratory function: WNL Cardiovascular function: WNL Mental status: Baseline Pain reasonably controlled: Yes Hydration appropriate: Yes Nausea/Vomiting absent: No VICENTE DURAN MD Dec 18, 2018 10:36
[2018-12-18] MEDS ORDERED: HEPARIN 1000 UNITS/ML 10 ML INJ IV ONE (11:00)
--- NOTE | 2018-12-18 11:03 | CONS ---
Assessment/Plan Assessment/Plan Hospital Course 47 F c/ reported Hx of stroke and epilepsy, among other comorbidities, who is currently admitted to the [facility] ICU following cardiac arrest. Now s/p TTM. On neurologic examination, she has preserved brainstem activity and a withdrawal motor response.. Her prognosis for meaningful neurologic recovery is probably poor. CTH was without acute intracranial pathology, though it was notable for severe atrophy and chronic subdurals. Initial EEG was without epileptiform activity; repeat EEG is the same. P: Continue Dilantin maintenance per ops for now; titrate prn to goal level 10-20 Continue Keppra per ops for now Ativan iv prn prolonged seizure or cluster Continue to limit sedating medications where possible Other medical management and supportive care per primary Will follow Consultation Date/Type/Reason Admit Date/Time Dec 06, 2018 at 12:45 Type of Consult Neurology Requesting Provider: BOZENA PARK Date/Time of Note DATE: 12/18/18 TIME: 11:02 24 HR Interval Summary Free Text/Dictation Continues critical care. Exam Vital Signs Vitals Vital Signs Date Temp Pulse Resp B/P (MAP) Pulse Ox O2 O2 Flow FiO2 Time Delivery Rate 12/18/18 73 0 133/64 100 09:00 (87) 12/18/18 98.9 Mechanical 08:00 Ventilator 12/18/18 30 07:30 Intake and Output 12/17/18 12/17/18 12/18/18 1414:59 22:59 06:59 IntakeIntake Total 444 ml 206 ml 200 ml OutputOutput Total 3000 ml 0 ml 0 ml BalanceBalance -2556 ml 206 ml 200 ml Exam PE: Gen Appearance: No Apparent Distress HEENT: Intubated; edematous Cardiovascular: Regular rate Abdomen: Soft Extremities: Dry; edematous NE: The patient was obtunded and nonverbal. Cranial nerve examination was limited by mental status. R pupil was sluggishly reactive to light; cataract in L pupil. Funduscopic examination was limited. Face was grossly symmetric, w/ present corneal and cough reflexes. Tone was normal. Muscle bulk was normal. I did not see fasciculations. The patient strongly withdrew her lower extremities to noxious stimuli. Coordination and gait testing was limited by mental status. Arm and leg reflexes were symmetric. Sun's sign was absent. Plantar responses were extensor. APARNA AQUINO [employer] EQUIPMENT MECH[employer]IC Dec 18, 2018 11:03
[2018-12-18] MEDS: HEPARIN 25000 UNITS/250 ML 250 ML IV SCH (11:41)
--- NOTE | 2018-12-18 11:46 | CONS ---
Assessment/Plan Assessment/Plan Assessment/Plan (Daily) 1. S/p Cardiopulmonary Arrest with ROSC, s/p Hypothermia protocol 2. ESRD on HD [facility] at [facility] 3. acute hypoxemic respiratory failure due to cardiac arrest s/p Intubation on ventilator 4. Shock--likely cardiogenic; cannot exclude obstructive though clinical picture not consistent with massive PE. 5. Sepsis 2/2 staph bacteremia 6. HTN heart disease 7.. DM 8. severe Anemia with Hb down to 6.9- S/p 2 U PRBC on 12/12/18 9. POSITIVE THROMBUS WITHIN THE LEFT. INTERNAL JUGULAR VEIN, AXILLARY, BRACHIAL, AND CEPHALIC VEINS. Plan: pt remains intubated, Hb 9.4, BP stable, afebrile -HD ordered for saturday ,will keep pt on MWF schedule while being in hospital continue on Epogen ^6000 units SQ TIW for her anemia, Palliative care has been following to discuss goals of care will follow up Patient is seen in collaboration with Dr Reddy. dw staff Consultation Date/Type/Reason Admit Date/Time Dec 06, 2018 at 12:45 Initial Consult Date 12/06/18 Type of Consult NEPHROLOGY Reason for Consultation ESRD on HD Requesting Provider: BOZENA PARK Date/Time of Note DATE: 12/18/18 TIME: 11:41 24 HR Interval Summary Free Text/Dictation - nad - afebrile - remains intubated - SP HD yesterday - SP PEG yesterday - Plan for trach - BUE/BLE swelling- DVT positive LUE - no new issues reported last night Dw staff Subjective hx not possible: pt non-verbal, pt critical status Constitutional: requiring IVF, requiring O2 Exam/Review of Systems Exam Vitals Vital Signs Date Temp Pulse Resp B/P (MAP) Pulse Ox O2 O2 Flow FiO2 Time Delivery Rate 12/18/18 73 0 133/64 100 09:00 (87) 12/18/18 98.9 Mechanical 08:00 Ventilator 12/18/18 30 07:30 Intake and Output 12/17/18 12/17/18 12/18/18 1515:00 23:00 07:00 IntakeIntake Total 354 ml 206 ml 200 ml OutputOutput Total 3000 ml 0 ml 0 ml BalanceBalance -2646 ml 206 ml 200 ml Constitutional: non-verbal, frail Psych: nl mood/affect Eyes: nl lids, nl sclera Neck: non-tender Respiratory: diminished breath sounds Cardiovascular: nl pulses, other Gastrointestinal: soft, non-tender Musculoskeletal: muscle weakness, range of motion Extremities: edema Neurological: unresponsive Lymph: nontender Results Result Diagram: 12/18/18 0648 12/17/18 0400 Results 24hrs Laboratory Tests Test 12/17/18 12:28 12/17/18 16:01 12/17/18 16:36 12/17/18 20:33 Bedside Glucose 121 119 104 Platelet Count 176 Prothrombin Time 16.2 H Prothrombin Time 1.3 Ratio INR International 1.29 Normalized Ratio Activated 28.[address] Time Thrombin Time 13.0 L Serum HCG, NEGATIVE Qualitative Test 12/18/18 01:08 12/18/18 04:00 12/18/18 04:18 12/18/18 06:33 Bedside Glucose 75 70 83 Magnesium Level 2.4 Prealbumin 18.2 Phenytoin 12.8 (Dilantin) Level Test 12/18/18 06:48 12/18/18 08:49 12/18/18 09:51 12/18/18 11:39 White Blood Count 9.3 # Red Blood Count 3.17 L Hemoglobin 9.4 L Hematocrit 30.5 L Mean Corpuscular 96.2 Volume Mean Corpuscular 29.7 Hemoglobin Mean Corpuscular 30.8 L Hemoglobin Concent Red Cell 14.8 H Distribution Width Platelet Count 174 Mean Platelet 9.9 Volume Immature 1.300 H Granulocytes % Neutrophils % 78.6 H Lymphocytes % 8.3 L Monocytes % 10.4 Eosinophils % 1.3 Basophils % 0.1 Nucleated Red 0.0 Blood Cells % Immature 0.120 H Granulocytes # Neutrophils # 7.3 Lymphocytes # 0.8 Monocytes # 1.0 H Eosinophils # 0.1 Basophils # 0.0 Nucleated Red 0.0 Blood Cells # Bedside Glucose 86 Prothrombin Time 16.6 H Prothrombin Time 1.3 Ratio INR International 1.33 Normalized Ratio Activated 34.[address] Time Lab Scanned Report REFERENCE LAB Medications Medication Current Medications Ondansetron HCl (Zofran Inj) 4 mg Q6H PRN IV NAUSEA AND/OR VOMITING; Start 12/06/18 at 09:30 Albuterol (Proventil 0.083% (Neb)) 2.5 mg Q2H RESP THERAPY PRN NEB SHORTNESS OF BREATH; Start 12/06/18 at 09:30 Docusate Sodium (Colace) 100 mg Q12H PRN PO CONSTIPATION; Start 12/06/18 at 09:30 Magnesium Hydroxide (Milk Of Mag) 30 ml DAILY PRN PO CONSTIPATION; Start 12/06/18 at 09:30 Aspirin (Aspirin) 81 mg DAILY PO Last administered on 12/18/18 08:39; Admin Dose 81 MG; Start 12/06/18 at 10:30 Brimonidine Tartrate (Alphagan 0.2%) 1 drop DAILY BOTH EYES Last administered on 12/18/18 08:41; Admin Dose 1 DROP; Start 12/06/18 at 11:00 Calcium Acetate (Phoslo) 667 mg WITH MEALS PO Last administered on 12/18/18 08:39; Admin Dose 667 MG; Start 12/06/18 at 12:00 Docusate Sodium (Colace) 200 mg DAILY PO ; Start 12/06/18 at 10:30; Status Hold Lactulose (Enulose) 20 gm BID PO Last administered on 12/18/18 08:38; Admin Dose 20 GM; Start 12/06/18 at 21:00 Montelukast Sodium (Singulair) 10 mg HS PO ; Start 12/06/18 at 21:00; Status Hold Multivit/Ca Carb/ B Cmplx/FA/Prenat (Mariaelena-Rosas) 1 tab DAILY PO Last administered on 12/18/18 08:39; Admin Dose 1 TAB; Start 12/06/18 at 10:30 Norepinephrine 250 ml @ 1.875 mls/ hr TITRATE IV Last administered on 12/07/18 13:25; Admin Dose 56.25 MLS/HR; Start 12/06/18 at 13:00 Atropine Sulfate (Atropine (Syringe)) 1 mg PRN PRN IV prn Last administered on 12/06/18 16:49; Admin Dose 1 MG; Start 12/06/18 at 16:00 Midazolam HCl 50 ml @ 1 mls/hr TITRATE IV Last administered on 12/09/18 05:09; Admin Dose 4 MLS/HR; Start 12/06/18 at 16:30 Vancomycin HCl (Vanco Iv Per Pharmacy) VANCOMYCIN PER PHARMACY PER PROTOCOL XX ; Start 12/06/18 at 17:30 Cefepime HCl 50 ml @ 100 mls/hr Q24H IVPB Last administered on 12/17/18at 20:27; Admin Dose 100 MLS/HR; Start 12/06/18 at 21:00 Levetiracetam 100 ml @ 400 mls/hr Q12 IVPB Last administered on 12/18/18at 08:40; Admin Dose 400 MLS/HR; Start 12/06/18 at 21:00 Dopamine HCl/ Dextrose 250 ml @ 7.613 mls/ hr TITRATE IV Last administered on 12/09/18at 03:03; Admin Dose 11.419 MLS/HR; Start 12/06/18 at 17:30 Acetaminophen (Tylenol Supp) 650 mg Q4H PRN [place] TEMP > 37C; Start 12/06/18 at 18:30 Meperidine HCl (Demerol) 12.5 mg Q4H PRN IV POST OPERATIVE SHIVERING; Start 12/06/18 at 18:30 Meperidine HCl (Demerol) 25 mg Q4H PRN IV POST OPERATIVE SHIVERING; Start 12/06/18 at 18:30 Eye Lubricant (Akwa Oint) 1 applic Q6 BOTH EYES Last administered on 12/18/18at 05:07; Admin Dose 1 APPLIC; Start 12/07/18 at 00:00 Eye Lubricant (Artificial Tears Oph) 2 drop Q6 BOTH EYES Last administered on 12/18/18at 05:06; Admin Dose 2 DROP; Start 12/07/18 at 00:00 Magnesium Sulfate 50 ml @ 25 mls/hr PRN PRN IVPB IV PROTOCOL; Start 12/06/18 at 20:30 Potassium Chloride 50 ml @ 25 mls/hr PRN PRN IVPB IV PROTOCOL Last administered on 12/07/18at 08:33; Admin Dose 25 MLS/HR; Start 12/06/18 at 20:30 Heparin Sodium (Porcine) (Heparin (1000 Units/ml)) 4,000 unit AFTER DIALYSIS CATHETER ; Start 12/06/18 at 22:00 Albumin Human 100 ml @ 100 mls/hr WITH DIALYSIS PRN IV SBP <90 DURING DIALYSIS Last administered on 12/17/18at 11:47; Admin Dose 100 MLS/HR; Start 12/06/18 at 22:00 Sodium Chloride (NS) -To prime the dialy... DIRECTED FOR HD PRN IV HD; Start 12/06/18 at 22:00 Phenytoin 200 mg/ Sodium Chloride 54 ml @ 112 mls/hr AM IV Last administered on 12/18/18at 09:47; Admin Dose 112 MLS/HR; Start 12/07/18 at 09:00 Phenytoin 200 mg/ Sodium Chloride 54 ml @ 112 mls/hr PC LUNCH IV Last administered on 12/17/18at 13:24; Admin Dose 112 MLS/HR; Start 12/07/18 at 12:30 Phenytoin 300 mg/ Sodium Chloride 56 ml @ 112 mls/hr 2100 IV Last administered on 12/17/18at 20:54; Admin Dose 112 MLS/HR; Start 12/07/18 at 21:00 Fentanyl 100 ml @ 2.5 mls/hr TITRATE IV Last administered on 12/08/18at 06:27; Admin Dose 2.5 MLS/HR; Start 12/08/18 at 06:30 Diagnostic Test (Pha) (Accu-Chek) 1 ea 02 XX Last administered on 12/13/18at 01:36; Admin Dose 1 EA; Start 12/09/18 at 02:00 Miscellaneous Information 1 ea NOTE XX ; Start 12/08/18 at 11:30 Glucose (Glutose) 15 gm Q15M PRN PO DECREASED GLUCOSE; Start 12/08/18 at 11:30 Glucose (Glutose) 22.5 gm Q15M PRN PO DECREASED GLUCOSE; Start 12/08/18 at 11:30 Dextrose (D50w Syringe) 25 ml Q15M PRN IV DECREASED GLUCOSE; Start 12/08/18 at 11:30 Dextrose (D50w Syringe) 50 ml Q15M PRN IV DECREASED GLUCOSE; Start 12/08/18 at 11:30 Glucagon (Glucagen) 1 mg Q15M PRN IM DECREASED GLUCOSE; Start 12/08/18 at 11:30 Glucose (Glutose) 15 gm Q15M PRN BUCCAL DECREASED GLUCOSE; Start 12/08/18 at 11:30 Collagenase (Santyl) 1 applic DAILY TOP Last administered on 12/18/18at 08:51; Admin Dose 1 APPLIC; Start 12/10/18 at 09:00 Diagnostic Test (Pha) (Accu-Chek) 1 ea Q4 XX Last administered on 12/14/18 08:21; Admin Dose 1 EA; Start 12/11/18 at 13:00 Acetaminophen (Tylenol Liquid) 650 mg Q6H PRN GTB MILD PAIN(1-3)OR ELEVATED TEMP Last administered on 12/16/18at 00:16; Admin Dose 650 MG; Start 12/11/18 at 20:30 Fluconazole/ Sodium Chloride 50 ml @ 50 mls/hr Q24H IVPB Last administered on 12/17/18at 14:47; Admin Dose 50 MLS/HR; Start 12/12/18 at 14:00 Insulin Aspart (Novolog Insulin Pen) NOVOLOG *MODERATE* ALGORITHM Q4 SC Last administered on 12/17/18 08:54; Admin Dose 4 UNIT; Start 12/12/18 at 13:00 Metronidazole 100 ml @ 100 mls/hr Q6 IVPB Last administered on 12/18/18at 05:06; Admin Dose 100 MLS/HR; Start 12/13/18 at 12:00 Lorazepam (Ativan) 1 mg Q10MIN PRN IV SEIZURES Last administered on 12/14/18at 17:16; Admin Dose 1 MG; Start 12/13/18 at 13:30 Epoetin Mna-epbx (Retacrit) 6,000 unit TuThSa@1700 SC Last administered on 12/16/18at 18:37; Admin Dose 6,000 UNIT; Start 12/16/18 at 17:00 Vancomycin HCl 250 ml @ 125 mls/hr Q96H IVPB Last administered on 12/15/18at 17:52; Admin Dose 125 MLS/HR; Start 12/15/18 at 18:00 Insulin Glargine (Lantus) 35 units DAILY@0800 SC Last administered on 12/18/18at 08:50; Admin Dose 35 UNITS; Start 12/17/18 at 08:00 Miscellaneous Information 1 ea NOTE XX ; Start 12/16/18 at 10:00 Glucose (Glutose) 15 gm Q15M PRN PO DECREASED GLUCOSE; Start 12/16/18 at 10:00 Glucose (Glutose) 22.5 gm Q15M PRN PO DECREASED GLUCOSE; Start 12/16/18 at 10:00 Dextrose (D50w Syringe) 25 ml Q15M PRN IV DECREASED GLUCOSE; Start 12/16/18 at 10:00 Dextrose (D50w Syringe) 50 ml Q15M PRN IV DECREASED GLUCOSE; Start 12/16/18 at 10:00 Glucagon (Glucagen) 1 mg Q15M PRN IM DECREASED GLUCOSE; Start 12/16/18 at 10:00 Glucose (Glutose) 15 gm Q15M PRN BUCCAL DECREASED GLUCOSE; Start 12/16/18 at 10:00 Hydralazine HCl (Apresoline) 10 mg Q4H PRN IV bp Last administered on 12/17/18at 07:03; Admin Dose 10 MG; Start 12/17/18 at 07:00 Carvedilol (Coreg) 6.25 mg BID NGT Last administered on 12/18/18at 08:39; Admin Dose 6.25 MG; Start 12/17/18 at 21:00 Famotidine (Pepcid) 20 mg Q48H PO ; Start 12/19/18 at 09:00 Heparin Sodium (Porcine) (Heparin (1000 Units/ml)) 8,100 unit PER PROTOCOL PRN IV aPTT<47; Start 12/18/18 at 09:30 Heparin Sodium (Porcine) (Heparin (1000 Units/ml)) 4,100 unit PER PROTOCOL PRN IV aPTT<47-57; Start 12/18/18 at 09:30 Heparin Sodium (Porcine) 250 ml @ 18 mls/hr PER PROTOCOL IV ; Start 12/18/18 at 11:00 EMMETT FRANCIS Dec 18, 2018 11:46
--- NOTE | 2018-12-18 13:16 | CONS ---
DATE OF ADMISSION: 12/06/2018 DATE OF CONSULTATION: 12/18/2018 HISTORY OF PRESENT ILLNESS: Ms. Weber is a 47-year-old female with history of respiratory failure . ENT was consulted to evaluate for tracheostomy. PAST MEDICAL HISTORY: Diabetes, renal failure, respiratory failure, blindness, obesity. PAST SURGICAL HISTORY: AV fistula. ALLERGIES: NO KNOWN DRUG ALLERGIES. MEDICATIONS: List was reviewed. SOCIAL HISTORY: Negative for tobacco, alcohol, or drug abuse. FAMILY HISTORY: Negative for any heart, lung, kidney, thyroid, liver disease. REVIEW OF SYSTEMS: The patient is intubated and not able to communicate with us. PHYSICAL EXAMINATION: GENERAL: On examination today, patient is intubated. HEENT: Oral cavity and oropharynx are otherwise clear. NECK: Reveals no prior incisions but she is obese. IMPRESSION: Respiratory failure. PLAN: At this point, we will plan on tracheostomy tube tomorrow. If there are any other questions o r concerns, please feel free to call at any time. Dictated By: BOZENA MOODY/TRIPP Conf#: [id number] DID#: [id number]
--- NOTE | 2018-12-18 13:48 | CONS ---
Assessment/Plan Assessment/Plan Hospital Course (Demo Recall) No acute changes overnight patient remains intubated and in no distress no fevers WBC today 9.3 was neutrophils 78.6 Chest x-ray revealed worsening moderate right pleural effusion Microbiology: Blood cultures on admission grew oxacillin sensitive staph aureus, repeat blood cultures negative urine culture negative sputum culture grew Rosa albicans. Femoral line tip culture grew Corynebacterium, coag negative staph and alpha hemolytic strep species Extremity venous study revealed a DVT involving the right proximal femoral vein Indwelling: Endotracheal tube, PEG, right upper extremity AV fistula, right femoral triple-lumen catheter 12/14/18 Antimicrobials: Vancomycin, Flagyl, fluconazole, cefepime Physical examination: Obese chronically ill-appearing middle-aged woman who is noncommunicative intubated in no distress. Head atraumatic normocephalic neck is obese chest rise symmetrical breath sounds diminished bases heart S1-S2 abdomen obese soft bowel sounds hypoactive extremities with trace edema Assessment: 1. Status post infected femoral line discontinuation==> resolved fevers 1. Status post septic shock 2. Bilateral pneumonia, resolving 3. Status post oxacillin sensitive staph aureus bacteremia 4. Status post cardiac arrest with hypothermia protocol 5. Diabetes 6. Seizure disorder 7. End-stage renal disease, hemodialysis dependent 8. Cardiomyopathy with ejection fraction of 35% 9. Right lower extremity DVT Plan: Clinically unchanged, stable, completing antibiotics, pending trach Consultation Date/Type/Reason Admit Date/Time Dec 06, 2018 at 12:45 Initial Consult Date 12/06/18 Type of Consult id Requesting Provider: BOZENA PARK Date/Time of Note DATE: 12/18/18 TIME: 13:46 Exam/Review of Systems Exam Vitals Vital Signs Date Temp Pulse Resp B/P (MAP) Pulse Ox O2 O2 Flow FiO2 Time Delivery Rate 12/18/18 68 12:00 12/18/18 98.5 19 105/44 100 Mechanical 12:00 (64) Ventilator 12/18/18 30 07:30 Intake and Output 12/17/18 12/17/18 12/18/18 1515:00 23:00 07:00 IntakeIntake Total 354 ml 206 ml 200 ml OutputOutput Total 3000 ml 0 ml 0 ml BalanceBalance -2646 ml 206 ml 200 ml Results Result Diagram: 12/18/18 0648 12/17/18 0400 Results 24hrs Laboratory Tests Test 12/17/18 16:01 12/17/18 16:36 12/17/18 20:33 12/18/18 01:08 Bedside Glucose 119 104 75 Platelet Count 176 Prothrombin Time 16.2 H Prothrombin Time 1.3 Ratio INR International 1.29 Normalized Ratio Activated 28.[address] Time Thrombin Time 13.0 L Serum HCG, NEGATIVE Qualitative Test 12/18/18 04:00 12/18/18 04:18 12/18/18 06:33 12/18/18 06:48 Magnesium Level 2.4 Prealbumin 18.2 Phenytoin 12.8 (Dilantin) Level Bedside Glucose 70 83 White Blood Count 9.3 # Red Blood Count 3.17 L Hemoglobin 9.4 L Hematocrit 30.5 L Mean Corpuscular 96.2 Volume Mean Corpuscular 29.7 Hemoglobin Mean Corpuscular 30.8 L Hemoglobin Concent Red Cell 14.8 H Distribution Width Platelet Count 174 Mean Platelet 9.9 Volume Immature 1.300 H Granulocytes % Neutrophils % 78.6 H Lymphocytes % 8.3 L Monocytes % 10.4 Eosinophils % 1.3 Basophils % 0.1 Nucleated Red 0.0 Blood Cells % Immature 0.120 H Granulocytes # Neutrophils # 7.3 Lymphocytes # 0.8 Monocytes # 1.0 H Eosinophils # 0.1 Basophils # 0.0 Nucleated Red 0.0 Blood Cells # Test 12/18/18 08:49 12/18/18 09:51 12/18/18 11:39 12/18/18 12:36 Bedside Glucose 86 101 Prothrombin Time 16.6 H Prothrombin Time 1.3 Ratio INR International 1.33 Normalized Ratio Activated 34.[address] Time Lab Scanned Report REFERENCE LAB Medications Medication Current Medications Ondansetron HCl (Zofran Inj) 4 mg Q6H PRN IV NAUSEA AND/OR VOMITING; Start 12/06/18 at 09:30 Albuterol (Proventil 0.083% (Neb)) 2.5 mg Q2H RESP THERAPY PRN NEB SHORTNESS OF BREATH; Start 12/06/18 at 09:30 Docusate Sodium (Colace) 100 mg Q12H PRN PO CONSTIPATION; Start 12/06/18 at 09:30 Magnesium Hydroxide (Milk Of Mag) 30 ml DAILY PRN PO CONSTIPATION; Start 12/06/18 at 09:30 Aspirin (Aspirin) 81 mg DAILY PO Last administered on 12/18/18 08:39; Admin Dose 81 MG; Start 12/06/18 at 10:30 Brimonidine Tartrate (Alphagan 0.2%) 1 drop DAILY BOTH EYES Last administered on 12/18/18 08:41; Admin Dose 1 DROP; Start 12/06/18 at 11:00 Calcium Acetate (Phoslo) 667 mg WITH MEALS PO Last administered on 12/18/18 11:53; Admin Dose 667 MG; Start 12/06/18 at 12:00 Docusate Sodium (Colace) 200 mg DAILY PO ; Start 12/06/18 at 10:30; Status Hold Lactulose (Enulose) 20 gm BID PO Last administered on 12/18/18 08:38; Admin Dose 20 GM; Start 12/06/18 at 21:00 Montelukast Sodium (Singulair) 10 mg HS PO ; Start 12/06/18 at 21:00; Status Hold Multivit/Ca Carb/ B Cmplx/FA/Prenat (Mariaelena-Rosas) 1 tab DAILY PO Last administered on 12/18/18 08:39; Admin Dose 1 TAB; Start 12/06/18 at 10:30 Norepinephrine 250 ml @ 1.875 mls/ hr TITRATE IV Last administered on 12/07/18 13:25; Admin Dose 56.25 MLS/HR; Start 12/06/18 at 13:00 Atropine Sulfate (Atropine (Syringe)) 1 mg PRN PRN IV prn Last administered on 12/06/18 16:49; Admin Dose 1 MG; Start 12/06/18 at 16:00 Midazolam HCl 50 ml @ 1 mls/hr TITRATE IV Last administered on 12/09/18 05:09; Admin Dose 4 MLS/HR; Start 12/06/18 at 16:30 Vancomycin HCl (Vanco Iv Per Pharmacy) VANCOMYCIN PER PHARMACY PER PROTOCOL XX ; Start 12/06/18 at 17:30 Cefepime HCl 50 ml @ 100 mls/hr Q24H IVPB Last administered on 12/17/18 20:27; Admin Dose 100 MLS/HR; Start 12/06/18 at 21:00 Levetiracetam 100 ml @ 400 mls/hr Q12 IVPB Last administered on 12/18/18 08:40; Admin Dose 400 MLS/HR; Start 12/06/18 at 21:00 Dopamine HCl/ Dextrose 250 ml @ 7.613 mls/ hr TITRATE IV Last administered on 12/09/18 03:03; Admin Dose 11.419 MLS/HR; Start 12/06/18 at 17:30 Acetaminophen (Tylenol Supp) 650 mg Q4H PRN [place] TEMP > 37C; Start 12/06/18 at 18:30 Meperidine HCl (Demerol) 12.5 mg Q4H PRN IV POST OPERATIVE SHIVERING; Start 12/06/18 at 18:30 Meperidine HCl (Demerol) 25 mg Q4H PRN IV POST OPERATIVE SHIVERING; Start 12/06/18 at 18:30 Eye Lubricant (Akwa Oint) 1 applic Q6 BOTH EYES Last administered on 12/18/18at 11:49; Admin Dose 1 APPLIC; Start 12/07/18 at 00:00 Eye Lubricant (Artificial Tears Oph) 2 drop Q6 BOTH EYES Last administered on 12/18/18 11:48; Admin Dose 2 DROP; Start 12/07/18 at 00:00 Magnesium Sulfate 50 ml @ 25 mls/hr PRN PRN IVPB IV PROTOCOL; Start 12/06/18 at 20:30 Potassium Chloride 50 ml @ 25 mls/hr PRN PRN IVPB IV PROTOCOL Last administered on 12/07/18 08:33; Admin Dose 25 MLS/HR; Start 12/06/18 at 20:30 Heparin Sodium (Porcine) (Heparin (1000 Units/ml)) 4,000 unit AFTER DIALYSIS CATHETER ; Start 12/06/18 at 22:00 Albumin Human 100 ml @ 100 mls/hr WITH DIALYSIS PRN IV SBP <90 DURING DIALYSIS Last administered on 12/17/18 11:47; Admin Dose 100 MLS/HR; Start 12/06/18 at 22:00 Sodium Chloride (NS) -To prime the dialy... DIRECTED FOR HD PRN IV HD; Start 12/06/18 at 22:00 Phenytoin 200 mg/ Sodium Chloride 54 ml @ 112 mls/hr AM IV Last administered on 12/18/18at 09:47; Admin Dose 112 MLS/HR; Start 12/07/18 at 09:00 Phenytoin 200 mg/ Sodium Chloride 54 ml @ 112 mls/hr PC LUNCH IV Last administered on 12/18/18 12:38; Admin Dose 112 MLS/HR; Start 12/07/18 at 12:30 Phenytoin 300 mg/ Sodium Chloride 56 ml @ 112 mls/hr 2100 IV Last administered on 12/17/18at 20:54; Admin Dose 112 MLS/HR; Start 12/07/18 at 21:00 Fentanyl 100 ml @ 2.5 mls/hr TITRATE IV Last administered on 12/08/18 06:27; Admin Dose 2.5 MLS/HR; Start 12/08/18 at 06:30 Diagnostic Test (Pha) (Accu-Chek) 1 ea 02 XX Last administered on 12/13/18at 01:36; Admin Dose 1 EA; Start 12/09/18 at 02:00 Miscellaneous Information 1 ea NOTE XX ; Start 12/08/18 at 11:30 Glucose (Glutose) 15 gm Q15M PRN PO DECREASED GLUCOSE; Start 12/08/18 at 11:30 Glucose (Glutose) 22.5 gm Q15M PRN PO DECREASED GLUCOSE; Start 12/08/18 at 11:30 Dextrose (D50w Syringe) 25 ml Q15M PRN IV DECREASED GLUCOSE; Start 12/08/18 at 11:30 Dextrose (D50w Syringe) 50 ml Q15M PRN IV DECREASED GLUCOSE; Start 12/08/18 at 11:30 Glucagon (Glucagen) 1 mg Q15M PRN IM DECREASED GLUCOSE; Start 12/08/18 at 11:30 Glucose (Glutose) 15 gm Q15M PRN BUCCAL DECREASED GLUCOSE; Start 12/08/18 at 11:30 Collagenase (Santyl) 1 applic DAILY TOP Last administered on 12/18/18at 08:51; Admin Dose 1 APPLIC; Start 12/10/18 at 09:00 Diagnostic Test (Pha) (Accu-Chek) 1 ea Q4 XX Last administered on 12/14/18at 08:21; Admin Dose 1 EA; Start 12/11/18 at 13:00 Acetaminophen (Tylenol Liquid) 650 mg Q6H PRN GTB MILD PAIN(1-3)OR ELEVATED TEMP Last administered on 12/16/18at 00:16; Admin Dose 650 MG; Start 12/11/18 at 20:30 Fluconazole/ Sodium Chloride 50 ml @ 50 mls/hr Q24H IVPB Last administered on 12/17/18at 14:47; Admin Dose 50 MLS/HR; Start 12/12/18 at 14:00 Insulin Aspart (Novolog Insulin Pen) NOVOLOG *MODERATE* ALGORITHM Q4 SC Last administered on 12/17/18at 08:54; Admin Dose 4 UNIT; Start 12/12/18 at 13:00 Metronidazole 100 ml @ 100 mls/hr Q6 IVPB Last administered on 12/18/18at 11:46; Admin Dose 100 MLS/HR; Start 12/13/18 at 12:00 Lorazepam (Ativan) 1 mg Q10MIN PRN IV SEIZURES Last administered on 12/14/18at 17:16; Admin Dose 1 MG; Start 12/13/18 at 13:30 Epoetin Man-epbx (Retacrit) 6,000 unit TuThSa@1700 SC Last administered on 12/16/18at 18:37; Admin Dose 6,000 UNIT; Start 12/16/18 at 17:00 Vancomycin HCl 250 ml @ 125 mls/hr Q96H IVPB Last administered on 12/15/18at 17:52; Admin Dose 125 MLS/HR; Start 12/15/18 at 18:00 Insulin Glargine (Lantus) 35 units DAILY@0800 SC Last administered on 12/18/18at 08:50; Admin Dose 35 UNITS; Start 12/17/18 at 08:00 Miscellaneous Information 1 ea NOTE XX ; Start 12/16/18 at 10:00 Glucose (Glutose) 15 gm Q15M PRN PO DECREASED GLUCOSE; Start 12/16/18 at 10:00 Glucose (Glutose) 22.5 gm Q15M PRN PO DECREASED GLUCOSE; Start 12/16/18 at 10:00 Dextrose (D50w Syringe) 25 ml Q15M PRN IV DECREASED GLUCOSE; Start 12/16/18 at 10:00 Dextrose (D50w Syringe) 50 ml Q15M PRN IV DECREASED GLUCOSE; Start 12/16/18 at 10:00 Glucagon (Glucagen) 1 mg Q15M PRN IM DECREASED GLUCOSE; Start 12/16/18 at 10:00 Glucose (Glutose) 15 gm Q15M PRN BUCCAL DECREASED GLUCOSE; Start 12/16/18 at 10:00 Hydralazine HCl (Apresoline) 10 mg Q4H PRN IV bp Last administered on 12/17/18at 07:03; Admin Dose 10 MG; Start 12/17/18 at 07:00 Carvedilol (Coreg) 6.25 mg BID NGT Last administered on 12/18/18at 08:39; Admin Dose 6.25 MG; Start 12/17/18 at 21:00 Famotidine (Pepcid) 20 mg Q48H PO ; Start 12/19/18 at 09:00 Heparin Sodium (Porcine) (Heparin (1000 Units/ml)) 8,100 unit PER PROTOCOL PRN IV aPTT<47; Start 12/18/18 at 09:30 Heparin Sodium (Porcine) (Heparin (1000 Units/ml)) 4,100 unit PER PROTOCOL PRN IV aPTT<47-57; Start 12/18/18 at 09:30 Heparin Sodium (Porcine) 250 ml @ 18 mls/hr PER PROTOCOL IV Last administered on 12/18/18at 11:41; Admin Dose 18 MLS/HR; Start 12/18/18 at 11:00 LEWIS PERALES NP Dec 18, 2018 13:48
--- NOTE | 2018-12-18 14:34 | PN ---
Date/Time of Note Date/Time of Note DATE: 12/18/18 TIME: 14:27 Assessment/Plan VTE Prophylaxis Risk score (from Nsg)>0 risk: 12 SCD applied (from Nsg): Yes Pharmacological prophylaxis: heparin Lines/Catheters IV Catheter Type (from Nrsg): Central Line Central line still needed: Yes Urinary Cath still in place: No Assessment/Plan Assessment/Plan Assessment: Post cardiac arrest Enteral feeding requirements Status post PEG placement 12/17/2018 -Uneventful PEG. Fr#20 GT Staph bacteremia/sepsis Anemia multifactorial Diabetes mellitus Hypertension History of CVA Renal failure Plan: PEG care per protocol Continue advancing feeding to goal GI will sign off at this time Patient seen in collaboration with Dr. Thorpe Subjective: Patient remains in the ICU on the ventilator. PEG placement site is clear of drainage. Continues tube feeding in progress at 40 cc/hr with minimal residuals. With no further recommendations GI will sign off and will be available to reconsult upon request. Exam PHYSICAL EXAMINATION: GENERAL: Well developed, obese, unresponsive, on the ventilator, in no acute distress SKIN: No lesions, right upper extremity edema, no stigmata chronic liver disease, no evidence of bleeding diathesis LYMPHATIC: No palpable lymphadenopathy. HEAD: Normocephalic, atraumatic, no tenderness. EYES: Pupils equal reactive to light and accommodation, full extraocular movements, sclera clear, non-icteric, no discharge. EARS/NOSE AND THROAT: Ears normal, nose normal, oropharynx normal, oral membranes well hydrated without lesions. NECK: Supple, no masses, thyroid normal, JVP within normal limits, carotids normal without bruits. CHEST: Inspection within normal limits. CARDIOVASCULAR: Heart: Regular rate and rhythm, no murmurs, gallops or rubs. Peripheral pulses present within normal limits, no cyanosis, clubbing or edemas. No pulsatile abdominal mass RESPIRATORY: Lungs clear to auscultation and percussion, no wheezing, no rubs GASTROINTESTINAL AND LIVER: Abdomen: Soft, non tenderness, G-tube in place with continuous feeding in progress , non-distended, no hernias, no masses, no organomegaly, no ascites, no guarding, no rebound tenderness, normoactive bowel sounds. Rectal: Deferred. GENITOURINARY:Female genitalia within normal limits. EXTREMITIES: No cyanosis, clubbing or edema. Result Diagram: 12/18/18 0648 12/17/18 0400 Results 24hrs Laboratory Tests Test 12/17/18 16:01 12/17/18 16:36 12/17/18 20:33 12/18/18 01:08 Bedside Glucose 119 104 75 Platelet Count 176 Prothrombin Time 16.2 H Prothrombin Time 1.3 Ratio INR International 1.29 Normalized Ratio Activated 28.[address] Time Thrombin Time 13.0 L Serum HCG, NEGATIVE Qualitative Test 12/18/18 04:00 12/18/18 04:18 12/18/18 06:33 12/18/18 06:48 Magnesium Level 2.4 Prealbumin 18.2 Phenytoin 12.8 (Dilantin) Level Bedside Glucose 70 83 White Blood Count 9.3 # Red Blood Count 3.17 L Hemoglobin 9.4 L Hematocrit 30.5 L Mean Corpuscular 96.2 Volume Mean Corpuscular 29.7 Hemoglobin Mean Corpuscular 30.8 L Hemoglobin Concent Red Cell 14.8 H Distribution Width Platelet Count 174 Mean Platelet 9.9 Volume Immature 1.300 H Granulocytes % Neutrophils % 78.6 H Lymphocytes % 8.3 L Monocytes % 10.4 Eosinophils % 1.3 Basophils % 0.1 Nucleated Red 0.0 Blood Cells % Immature 0.120 H Granulocytes # Neutrophils # 7.3 Lymphocytes # 0.8 Monocytes # 1.0 H Eosinophils # 0.1 Basophils # 0.0 Nucleated Red 0.0 Blood Cells # Test 12/18/18 08:49 12/18/18 09:51 12/18/18 11:39 12/18/18 12:36 Bedside Glucose 86 101 Prothrombin Time 16.6 H Prothrombin Time 1.3 Ratio INR International 1.33 Normalized Ratio Activated 34.[address] Time Lab Scanned Report REFERENCE LAB CC: MINDY THORPE MD ; Exam/Review of Systems Exam Vitals Vital Signs Date Temp Pulse Resp B/P (MAP) Pulse Ox O2 O2 Flow FiO2 Time Delivery Rate 12/18/18 69 17 100 30 13:10 12/18/18 98.5 105/44 Mechanical 12:00 (64) Ventilator Intake and Output 12/17/18 12/17/18 12/18/18 1515:00 23:00 07:00 IntakeIntake Total 354 ml 206 ml 200 ml OutputOutput Total 3000 ml 0 ml 0 ml BalanceBalance -2646 ml 206 ml 200 ml Results Results 24hrs Laboratory Tests Test 12/17/18 16:01 12/17/18 16:36 12/17/18 20:33 12/18/18 01:08 Bedside Glucose 119 104 75 Platelet Count 176 Prothrombin Time 16.2 H Prothrombin Time 1.3 Ratio INR International 1.29 Normalized Ratio Activated 28.[address] Time Thrombin Time 13.0 L Serum HCG, NEGATIVE Qualitative Test 12/18/18 04:00 12/18/18 04:18 12/18/18 06:33 12/18/18 06:48 Magnesium Level 2.4 Prealbumin 18.2 Phenytoin 12.8 (Dilantin) Level Bedside Glucose 70 83 White Blood Count 9.3 # Red Blood Count 3.17 L Hemoglobin 9.4 L Hematocrit 30.5 L Mean Corpuscular 96.2 Volume Mean Corpuscular 29.7 Hemoglobin Mean Corpuscular 30.8 L Hemoglobin Concent Red Cell 14.8 H Distribution Width Platelet Count 174 Mean Platelet 9.9 Volume Immature 1.300 H Granulocytes % Neutrophils % 78.6 H Lymphocytes % 8.3 L Monocytes % 10.4 Eosinophils % 1.3 Basophils % 0.1 Nucleated Red 0.0 Blood Cells % Immature 0.120 H Granulocytes # Neutrophils # 7.3 Lymphocytes # 0.8 Monocytes # 1.0 H Eosinophils # 0.1 Basophils # 0.0 Nucleated Red 0.0 Blood Cells # Test 12/18/18 08:49 12/18/18 09:51 12/18/18 11:39 12/18/18 12:36 Bedside Glucose 86 101 Prothrombin Time 16.6 H Prothrombin Time 1.3 Ratio INR International 1.33 Normalized Ratio Activated 34.[address] Time Lab Scanned Report REFERENCE LAB Medications Medication Current Medications Ondansetron HCl (Zofran Inj) 4 mg Q6H PRN IV NAUSEA AND/OR VOMITING; Start 12/06/18 at 09:30 Albuterol (Proventil 0.083% (Neb)) 2.5 mg Q2H RESP THERAPY PRN NEB SHORTNESS OF BREATH; Start 12/06/18 at 09:30 Docusate Sodium (Colace) 100 mg Q12H PRN PO CONSTIPATION; Start 12/06/18 at 09:30 Magnesium Hydroxide (Milk Of Mag) 30 ml DAILY PRN PO CONSTIPATION; Start 12/06/18 at 09:30 Aspirin (Aspirin) 81 mg DAILY PO Last administered on 12/18/18 08:39; Admin Dose 81 MG; Start 12/06/18 at 10:30 Brimonidine Tartrate (Alphagan 0.2%) 1 drop DAILY BOTH EYES Last administered on 12/18/18 08:41; Admin Dose 1 DROP; Start 12/06/18 at 11:00 Calcium Acetate (Phoslo) 667 mg WITH MEALS PO Last administered on 12/18/18 11:53; Admin Dose 667 MG; Start 12/06/18 at 12:00 Docusate Sodium (Colace) 200 mg DAILY PO ; Start 12/06/18 at 10:30; Status Hold Lactulose (Enulose) 20 gm BID PO Last administered on 12/18/18 08:38; Admin Dose 20 GM; Start 12/06/18 at 21:00 Montelukast Sodium (Singulair) 10 mg HS PO ; Start 12/06/18 at 21:00; Status Hold Multivit/Ca Carb/ B Cmplx/FA/Prenat (Mariaelena-Rosas) 1 tab DAILY PO Last administered on 12/18/18 08:39; Admin Dose 1 TAB; Start 12/06/18 at 10:30 Norepinephrine 250 ml @ 1.875 mls/ hr TITRATE IV Last administered on 12/07/18 13:25; Admin Dose 56.25 MLS/HR; Start 12/06/18 at 13:00 Atropine Sulfate (Atropine (Syringe)) 1 mg PRN PRN IV prn Last administered on 12/06/18 16:49; Admin Dose 1 MG; Start 12/06/18 at 16:00 Midazolam HCl 50 ml @ 1 mls/hr TITRATE IV Last administered on 12/09/18 05:09; Admin Dose 4 MLS/HR; Start 12/06/18 at 16:30 Vancomycin HCl (Vanco Iv Per Pharmacy) VANCOMYCIN PER PHARMACY PER PROTOCOL XX ; Start 12/06/18 at 17:30 Cefepime HCl 50 ml @ 100 mls/hr Q24H IVPB Last administered on 12/17/18 20:27; Admin Dose 100 MLS/HR; Start 12/06/18 at 21:00 Levetiracetam 100 ml @ 400 mls/hr Q12 IVPB Last administered on 12/18/18 08:40; Admin Dose 400 MLS/HR; Start 12/06/18 at 21:00 Dopamine HCl/ Dextrose 250 ml @ 7.613 mls/ hr TITRATE IV Last administered on 12/09/18 03:03; Admin Dose 11.419 MLS/HR; Start 12/06/18 at 17:30 Acetaminophen (Tylenol Supp) 650 mg Q4H PRN DC TEMP > 37C; Start 12/06/18 at 18:30 Meperidine HCl (Demerol) 12.5 mg Q4H PRN IV POST OPERATIVE SHIVERING; Start 12/06/18 at 18:30 Meperidine HCl (Demerol) 25 mg Q4H PRN IV POST OPERATIVE SHIVERING; Start 12/06/18 at 18:30 Eye Lubricant (Akwa Oint) 1 applic Q6 BOTH EYES Last administered on 12/18/18 11:49; Admin Dose 1 APPLIC; Start 12/07/18 at 00:00 Eye Lubricant (Artificial Tears Oph) 2 drop Q6 BOTH EYES Last administered on 12/18/18 11:48; Admin Dose 2 DROP; Start 12/07/18 at 00:00 Magnesium Sulfate 50 ml @ 25 mls/hr PRN PRN IVPB IV PROTOCOL; Start 12/06/18 at 20:30 Potassium Chloride 50 ml @ 25 mls/hr PRN PRN IVPB IV PROTOCOL Last administered on 12/07/18 08:33; Admin Dose 25 MLS/HR; Start 12/06/18 at 20:30 Heparin Sodium (Porcine) (Heparin (1000 Units/ml)) 4,000 unit AFTER DIALYSIS CATHETER ; Start 12/06/18 at 22:00 Albumin Human 100 ml @ 100 mls/hr WITH DIALYSIS PRN IV SBP <90 DURING DIALYSIS Last administered on 12/17/18 11:47; Admin Dose 100 MLS/HR; Start 12/06/18 at 22:00 Sodium Chloride (NS) -To prime the dialy... DIRECTED FOR HD PRN IV HD; Start 12/06/18 at 22:00 Phenytoin 200 mg/ Sodium Chloride 54 ml @ 112 mls/hr AM IV Last administered on 12/18/18 09:47; Admin Dose 112 MLS/HR; Start 12/07/18 at 09:00 Phenytoin 200 mg/ Sodium Chloride 54 ml @ 112 mls/hr PC LUNCH IV Last administered on 12/18/18at 12:38; Admin Dose 112 MLS/HR; Start 12/07/18 at 12:30 Phenytoin 300 mg/ Sodium Chloride 56 ml @ 112 mls/hr 2100 IV Last administered on 12/17/18at 20:54; Admin Dose 112 MLS/HR; Start 12/07/18 at 21:00 Fentanyl 100 ml @ 2.5 mls/hr TITRATE IV Last administered on 12/08/18 06:27; Admin Dose 2.5 MLS/HR; Start 12/08/18 at 06:30 Diagnostic Test (Pha) (Accu-Chek) 1 ea 02 XX Last administered on 12/13/18at 01:36; Admin Dose 1 EA; Start 12/09/18 at 02:00 Miscellaneous Information 1 ea NOTE XX ; Start 12/08/18 at 11:30 Glucose (Glutose) 15 gm Q15M PRN PO DECREASED GLUCOSE; Start 12/08/18 at 11:30 Glucose (Glutose) 22.5 gm Q15M PRN PO DECREASED GLUCOSE; Start 12/08/18 at 11:30 Dextrose (D50w Syringe) 25 ml Q15M PRN IV DECREASED GLUCOSE; Start 12/08/18 at 11:30 Dextrose (D50w Syringe) 50 ml Q15M PRN IV DECREASED GLUCOSE; Start 12/08/18 at 11:30 Glucagon (Glucagen) 1 mg Q15M PRN IM DECREASED GLUCOSE; Start 12/08/18 at 11:30 Glucose (Glutose) 15 gm Q15M PRN BUCCAL DECREASED GLUCOSE; Start 12/08/18 at 11:30 Collagenase (Santyl) 1 applic DAILY TOP Last administered on 12/18/18at 08:51; Admin Dose 1 APPLIC; Start 12/10/18 at 09:00 Diagnostic Test (Pha) (Accu-Chek) 1 ea Q4 XX Last administered on 12/14/18at 08:21; Admin Dose 1 EA; Start 12/11/18 at 13:00 Acetaminophen (Tylenol Liquid) 650 mg Q6H PRN GTB MILD PAIN(1-3)OR ELEVATED TEMP Last administered on 12/16/18at 00:16; Admin Dose 650 MG; Start 12/11/18 at 20:30 Fluconazole/ Sodium Chloride 50 ml @ 50 mls/hr Q24H IVPB Last administered on 12/17/18at 14:47; Admin Dose 50 MLS/HR; Start 12/12/18 at 14:00 Insulin Aspart (Novolog Insulin Pen) NOVOLOG *MODERATE* ALGORITHM Q4 SC Last administered on 12/17/18at 08:54; Admin Dose 4 UNIT; Start 12/12/18 at 13:00 Metronidazole 100 ml @ 100 mls/hr Q6 IVPB Last administered on 12/18/18at 11:46; Admin Dose 100 MLS/HR; Start 12/13/18 at 12:00 Lorazepam (Ativan) 1 mg Q10MIN PRN IV SEIZURES Last administered on 12/14/18at 17:16; Admin Dose 1 MG; Start 12/13/18 at 13:30 Epoetin Man-epbx (Retacrit) 6,000 unit TuThSa@1700 SC Last administered on 12/16/18at 18:37; Admin Dose 6,000 UNIT; Start 12/16/18 at 17:00 Vancomycin HCl 250 ml @ 125 mls/hr Q96H IVPB Last administered on 12/15/18at 17:52; Admin Dose 125 MLS/HR; Start 12/15/18 at 18:00 Insulin Glargine (Lantus) 35 units DAILY@0800 SC Last administered on 12/18/18at 08:50; Admin Dose 35 UNITS; Start 12/17/18 at 08:00 Miscellaneous Information 1 ea NOTE XX ; Start 12/16/18 at 10:00 Glucose (Glutose) 15 gm Q15M PRN PO DECREASED GLUCOSE; Start 12/16/18 at 10:00 Glucose (Glutose) 22.5 gm Q15M PRN PO DECREASED GLUCOSE; Start 12/16/18 at 10:00 Dextrose (D50w Syringe) 25 ml Q15M PRN IV DECREASED GLUCOSE; Start 12/16/18 at 10:00 Dextrose (D50w Syringe) 50 ml Q15M PRN IV DECREASED GLUCOSE; Start 12/16/18 at 10:00 Glucagon (Glucagen) 1 mg Q15M PRN IM DECREASED GLUCOSE; Start 12/16/18 at 10:00 Glucose (Glutose) 15 gm Q15M PRN BUCCAL DECREASED GLUCOSE; Start 12/16/18 at 10:00 Hydralazine HCl (Apresoline) 10 mg Q4H PRN IV bp Last administered on 12/17/18at 07:03; Admin Dose 10 MG; Start 12/17/18 at 07:00 Carvedilol (Coreg) 6.25 mg BID NGT Last administered on 12/18/18at 08:39; Admin Dose 6.25 MG; Start 12/17/18 at 21:00 Famotidine (Pepcid) 20 mg Q48H PO ; Start 12/19/18 at 09:00 Heparin Sodium (Porcine) (Heparin (1000 Units/ml)) 8,100 unit PER PROTOCOL PRN IV aPTT<47; Start 12/18/18 at 09:30 Heparin Sodium (Porcine) (Heparin (1000 Units/ml)) 4,100 unit PER PROTOCOL PRN IV aPTT<47-57; Start 12/18/18 at 09:30 Heparin Sodium (Porcine) 250 ml @ 18 mls/hr PER PROTOCOL IV Last administered on 12/18/18at 11:41; Admin Dose 18 MLS/HR; Start 12/18/18 at 11:00 MOSES PARIS NP Dec 18, 2018 14:34
[2018-12-18] MEDS: FLUCONAZOLE 100 MG/50 ML (PMX) 50 ML IVPB SCH (14:36)
--- NOTE | 2018-12-18 15:49 | PREAC ---
Date/Time of Note Date/Time of Note DATE: 12/18/18 TIME: 15:48 Anesthesia Eval and Record Evaluation Time Pre-Procedure Interview DATE: 12/18/18 TIME: 15:48 Age 47 Sex female NPO: 8 hrs Preoperative diagnosis respiratory failure Planned procedure Tracheostomy Past Medical History Past Medical History: Includes Cardio: HTN, Arrythmia Endo: Diabetes Neuro: CVA Renal: ESRD on dialysis GI: Morbid obesity Surgery & Anesthesia Issues No known issue Meds Anticoagulation: No Beta Charles within 24 hr: No Reason Beta Charles not given: Pt. not on B-Charles Reported Medications Insulin Lispro (Humalog) 100 U/Ml Vial, SQ SSI TID AND HS PRN 09/12/11 Multivit/Ca Carb/B Cmplx/Fa* (Mariaelena-Rosas*) 1 Tab Tab, 1 TAB PO DAILY 09/12/11 [Prostat 64] No Conflict Check, 30 ML PO TID 09/12/11 Esomeprazole Mag Trihydrate (Nexium) 40 Mg Capsule.dr, 40 MG PO DAILY 09/12/11 Metoprolol (Lopressor) 100 Mg Tablet, 100 MG PO BID 09/12/11 Benazepril Hcl* (Lotensin*) 40 Mg Tablet, 40 MG PO DAILY 09/12/11 [Lactulose] No Conflict Check, 30 ML PO DAILY PRN 09/12/11 Lactulose (Lactulose) 10 G/15 Ml Solution, 20 G PO BID 09/12/11 Glipizide* (Glucotrol XL*) 2.5 Mg Tabsr, 2.5 MG PO DAILY 09/12/11 Phenytoin* Sodium Extended (Dilantin*) 100 Mg Capsule, 300 MG PO HS 09/12/11 Phenytoin* Sodium Extended (Dilantin*) 100 Mg Capsule, 200 MG PO DAILY @0900 09/12/11 Phenytoin* Sodium Extended (Dilantin*) 100 Mg Capsule, 200 MG PO DAILY @1300 09/12/11 Phenytoin* Sodium Extended (Dilantin*) 100 Mg Capsule, 200 MG PO DAILY 09/12/11 Docusate Sodium* (Colace*) 100 Mg Capsule, 200 MG PO DAILY 09/12/11 Warfarin Sodium* (Coumadin*) 7.5 Mg Tablet, 7.5 MG PO Q OTHER DAY 06/01/11 Montelukast Sodium* (Singulair*) 10 Mg Tablet, 10 MG PO HS 06/01/11 Folic Acid/Vitamin B Comp W-C* (Nephro-Rosas Tablet*) 0.8 Mg Tablet, 0.8 MG PO DAILY 06/01/11 Aspirin (Aspirin) 81 Mg Tablet, 81 MG PO DAILY 06/01/11 Levetiracetam* (Keppra*) 500 Mg Tablet, 500 MG PO BID 06/01/11 Clonidine Hcl* (Clonidine Hcl*) 0.2 Mg Tablet 01/09/11 Metoclopramide Hcl* (Metoclopramide Hcl*) 10 Mg Tablet 01/09/11 Brimonidine Tartrate* (Brimonidine Tartrate*) 15 Ml Drops 01/09/11 Prednisolone Acetate (Pred Forte) 5 Ml Drops.susp 01/09/11 Nifedipine (Nifedical XL*) 30 Mg/Bottle Tab.osm.24 01/09/11 Calcium Acetate* (Phoslo*) 667 Mg Tablet 10/24/09 Current Medications Ondansetron HCl (Zofran Inj) 4 mg Q6H PRN IV NAUSEA AND/OR VOMITING; Start 12/06/18 at 09:30 Albuterol (Proventil 0.083% (Neb)) 2.5 mg Q2H RESP THERAPY PRN NEB SHORTNESS OF BREATH; Start 12/06/18 at 09:30 Docusate Sodium (Colace) 100 mg Q12H PRN PO CONSTIPATION; Start 12/06/18 at 09:30 Magnesium Hydroxide (Milk Of Mag) 30 ml DAILY PRN PO CONSTIPATION; Start 12/06/18 at 09:30 Aspirin (Aspirin) 81 mg DAILY PO Last administered on 12/18/18at 08:39; Admin Dose 81 MG; Start 12/06/18 at 10:30 Brimonidine Tartrate (Alphagan 0.2%) 1 drop DAILY BOTH EYES Last administered on 12/18/18at 08:41; Admin Dose 1 DROP; Start 12/06/18 at 11:00 Calcium Acetate (Phoslo) 667 mg WITH MEALS PO Last administered on 12/18/18at 11:53; Admin Dose 667 MG; Start 12/06/18 at 12:00 Docusate Sodium (Colace) 200 mg DAILY PO ; Start 12/06/18 at 10:30; Status Hold Lactulose (Enulose) 20 gm BID PO Last administered on 12/18/18 08:38; Admin Dose 20 GM; Start 12/06/18 at 21:00 Montelukast Sodium (Singulair) 10 mg HS PO ; Start 12/06/18 at 21:00; Status Hold Multivit/Ca Carb/ B Cmplx/FA/Prenat (Mariaelena-Rosas) 1 tab DAILY PO Last administered on 12/18/18 08:39; Admin Dose 1 TAB; Start 12/06/18 at 10:30 Norepinephrine 250 ml @ 1.875 mls/ hr TITRATE IV Last administered on 12/07/18 13:25; Admin Dose 56.25 MLS/HR; Start 12/06/18 at 13:00 Atropine Sulfate (Atropine (Syringe)) 1 mg PRN PRN IV prn Last administered on 12/06/18 16:49; Admin Dose 1 MG; Start 12/06/18 at 16:00 Midazolam HCl 50 ml @ 1 mls/hr TITRATE IV Last administered on 12/09/18 05:09; Admin Dose 4 MLS/HR; Start 12/06/18 at 16:30 Vancomycin HCl (Vanco Iv Per Pharmacy) VANCOMYCIN PER PHARMACY PER PROTOCOL XX ; Start 12/06/18 at 17:30 Cefepime HCl 50 ml @ 100 mls/hr Q24H IVPB Last administered on 12/17/18 20:27; Admin Dose 100 MLS/HR; Start 12/06/18 at 21:00 Levetiracetam 100 ml @ 400 mls/hr Q12 IVPB Last administered on 12/18/18 08:40; Admin Dose 400 MLS/HR; Start 12/06/18 at 21:00 Dopamine HCl/ Dextrose 250 ml @ 7.613 mls/ hr TITRATE IV Last administered on 12/09/18 03:03; Admin Dose 11.419 MLS/HR; Start 12/06/18 at 17:30 Acetaminophen (Tylenol Supp) 650 mg Q4H PRN ID TEMP > 37C; Start 12/06/18 at 18:30 Meperidine HCl (Demerol) 12.5 mg Q4H PRN IV POST OPERATIVE SHIVERING; Start 12/06/18 at 18:30 Meperidine HCl (Demerol) 25 mg Q4H PRN IV POST OPERATIVE SHIVERING; Start 12/06/18 at 18:30 Eye Lubricant (Akwa Oint) 1 applic Q6 BOTH EYES Last administered on 12/18/18 11:49; Admin Dose 1 APPLIC; Start 12/07/18 at 00:00 Eye Lubricant (Artificial Tears Oph) 2 drop Q6 BOTH EYES Last administered on 12/18/18 11:48; Admin Dose 2 DROP; Start 12/07/18 at 00:00 Magnesium Sulfate 50 ml @ 25 mls/hr PRN PRN IVPB IV PROTOCOL; Start 12/06/18 at 20:30 Potassium Chloride 50 ml @ 25 mls/hr PRN PRN IVPB IV PROTOCOL Last administered on 12/07/18 08:33; Admin Dose 25 MLS/HR; Start 12/06/18 at 20:30 Heparin Sodium (Porcine) (Heparin (1000 Units/ml)) 4,000 unit AFTER DIALYSIS CATHETER ; Start 12/06/18 at 22:00 Albumin Human 100 ml @ 100 mls/hr WITH DIALYSIS PRN IV SBP <90 DURING DIALYSIS Last administered on 12/17/18 11:47; Admin Dose 100 MLS/HR; Start 12/06/18 at 22:00 Sodium Chloride (NS) -To prime the dialy... DIRECTED FOR HD PRN IV HD; Start 12/06/18 at 22:00 Phenytoin 200 mg/ Sodium Chloride 54 ml @ 112 mls/hr AM IV Last administered on 12/18/18 09:47; Admin Dose 112 MLS/HR; Start 12/07/18 at 09:00 Phenytoin 200 mg/ Sodium Chloride 54 ml @ 112 mls/hr PC LUNCH IV Last administered on 12/18/18 12:38; Admin Dose 112 MLS/HR; Start 12/07/18 at 12:30 Phenytoin 300 mg/ Sodium Chloride 56 ml @ 112 mls/hr 2100 IV Last administered on 12/17/18 20:54; Admin Dose 112 MLS/HR; Start 12/07/18 at 21:00 Fentanyl 100 ml @ 2.5 mls/hr TITRATE IV Last administered on 12/08/18 06:27; Admin Dose 2.5 MLS/HR; Start 12/08/18 at 06:30 Diagnostic Test (Pha) (Accu-Chek) 1 ea 02 XX Last administered on 12/13/18at 01:36; Admin Dose 1 EA; Start 12/09/18 at 02:00 Miscellaneous Information 1 ea NOTE XX ; Start 12/08/18 at 11:30 Glucose (Glutose) 15 gm Q15M PRN PO DECREASED GLUCOSE; Start 12/08/18 at 11:30 Glucose (Glutose) 22.5 gm Q15M PRN PO DECREASED GLUCOSE; Start 12/08/18 at 11:30 Dextrose (D50w Syringe) 25 ml Q15M PRN IV DECREASED GLUCOSE; Start 12/08/18 at 11:30 Dextrose (D50w Syringe) 50 ml Q15M PRN IV DECREASED GLUCOSE; Start 12/08/18 at 11:30 Glucagon (Glucagen) 1 mg Q15M PRN IM DECREASED GLUCOSE; Start 12/08/18 at 11:30 Glucose (Glutose) 15 gm Q15M PRN BUCCAL DECREASED GLUCOSE; Start 12/08/18 at 11:30 Collagenase (Santyl) 1 applic DAILY TOP Last administered on 12/18/18at 08:51; Admin Dose 1 APPLIC; Start 12/10/18 at 09:00 Diagnostic Test (Pha) (Accu-Chek) 1 ea Q4 XX Last administered on 12/14/18at 08:21; Admin Dose 1 EA; Start 12/11/18 at 13:00 Acetaminophen (Tylenol Liquid) 650 mg Q6H PRN GTB MILD PAIN(1-3)OR ELEVATED TEMP Last administered on 12/16/18at 00:16; Admin Dose 650 MG; Start 12/11/18 at 20:30 Fluconazole/ Sodium Chloride 50 ml @ 50 mls/hr Q24H IVPB Last administered on 12/18/18at 14:36; Admin Dose 50 MLS/HR; Start 12/12/18 at 14:00 Insulin Aspart (Novolog Insulin Pen) NOVOLOG *MODERATE* ALGORITHM Q4 SC Last administered on 12/17/18at 08:54; Admin Dose 4 UNIT; Start 12/12/18 at 13:00 Metronidazole 100 ml @ 100 mls/hr Q6 IVPB Last administered on 12/18/18at 11:46; Admin Dose 100 MLS/HR; Start 12/13/18 at 12:00 Lorazepam (Ativan) 1 mg Q10MIN PRN IV SEIZURES Last administered on 12/14/18at 17:16; Admin Dose 1 MG; Start 12/13/18 at 13:30 Epoetin Man-epbx (Retacrit) 6,000 unit TuThSa@1700 SC Last administered on 12/16/18at 18:37; Admin Dose 6,000 UNIT; Start 12/16/18 at 17:00 Vancomycin HCl 250 ml @ 125 mls/hr Q96H IVPB Last administered on 12/15/18at 17:52; Admin Dose 125 MLS/HR; Start 12/15/18 at 18:00 Insulin Glargine (Lantus) 35 units DAILY@0800 SC Last administered on 12/18/18at 08:50; Admin Dose 35 UNITS; Start 12/17/18 at 08:00 Miscellaneous Information 1 ea NOTE XX ; Start 12/16/18 at 10:00 Glucose (Glutose) 15 gm Q15M PRN PO DECREASED GLUCOSE; Start 12/16/18 at 10:00 Glucose (Glutose) 22.5 gm Q15M PRN PO DECREASED GLUCOSE; Start 12/16/18 at 10:00 Dextrose (D50w Syringe) 25 ml Q15M PRN IV DECREASED GLUCOSE; Start 12/16/18 at 10:00 Dextrose (D50w Syringe) 50 ml Q15M PRN IV DECREASED GLUCOSE; Start 12/16/18 at 10:00 Glucagon (Glucagen) 1 mg Q15M PRN IM DECREASED GLUCOSE; Start 12/16/18 at 10:00 Glucose (Glutose) 15 gm Q15M PRN BUCCAL DECREASED GLUCOSE; Start 12/16/18 at 10:00 Hydralazine HCl (Apresoline) 10 mg Q4H PRN IV bp Last administered on 12/17/18at 07:03; Admin Dose 10 MG; Start 12/17/18 at 07:00 Carvedilol (Coreg) 6.25 mg BID NGT Last administered on 12/18/18at 08:39; Admin Dose 6.25 MG; Start 12/17/18 at 21:00 Famotidine (Pepcid) 20 mg Q48H PO ; Start 12/19/18 at 09:00 Heparin Sodium (Porcine) (Heparin (1000 Units/ml)) 8,100 unit PER PROTOCOL PRN IV aPTT<47; Start 12/18/18 at 09:30 Heparin Sodium (Porcine) (Heparin (1000 Units/ml)) 4,100 unit PER PROTOCOL PRN IV aPTT<47-57; Start 12/18/18 at 09:30 Heparin Sodium (Porcine) 250 ml @ 18 mls/hr PER PROTOCOL IV Last administered on 12/18/18at 11:41; Admin Dose 18 MLS/HR; Start 12/18/18 at 11:00 Meds reviewed: Yes Allergies Coded Allergies: No Known Allergy (Verified , 12/13/18) Allergies Reviewed: Yes Labs/Studies Labs Reviewed: Reviewed by anesthesiologist Result Diagram: 12/18/18 0648 12/17/18 0400 Laboratory Tests 12/18/18 06:48 test: Negative Studies: ECG Pre-procedure Exam Last vitals Vital Signs Date Temp Pulse Resp B/P (MAP) Pulse Ox O2 O2 Flow FiO2 Time Delivery Rate 12/18/18 68 17 108/47 100 14:00 (67) 12/18/18 30 13:10 12/18/18 98.5 Mechanical 12:00 Ventilator Airway: Adequate mouth opening Mallampati: Mallampati II Teeth: Normal Lung: Normal Heart: Normal ASA Physical Status ASA physical status: 4 Emergency: None Planned Anesthetic General/MAC: ETT Pre-operative Attestations Prior to commencing anesthesia and surgery, the patient was re-evaluated, there was verification of: *The patient's identity *The results of appropriate recent lab work and preoperative vital signs *The above evaluation not changing prior to induction *Anesthetic plan, risk benefits, alternative and complications discussed with patient/family; questions answered; patient/family understands, accepts and wishes to proceed. TWIN CORTEZ Dec 18, 2018 15:49
[2018-12-18] MEDS: EPOETIN ALFA-EPBX (ESRD) 3,000 UNIT/ML VIAL SC SCH (17:05)
--- NOTE | 2018-12-18 18:29 | CONS ---
Assessment/Plan Assessment/Plan Hospital Course (Demo Recall) s/p cardiac arrest:First event was torsades in setting of prolonged QT caused by amiodarone. Subsequent PEA events. Trops negative and no ischemic EKG changes. Had a bradycardic arrest as well which may have been metabolic or related to lidocaine. EF is 35% and there is significant RV dysfunction and likely underlying severe pulm HTN which cannot be assessed accurately by echo. If she recovers she will need a cardiac cath for evaluation. Staph aureus bacteremia so may all have been sepsis related Shock: Septic with bacteremia. Off pressors Staph aureus bacteremia: ?from decubs. Repeat cultures negative Torsades: due to amiodarone induced prolonged QTc. Now resolved Prolonged QT: due to amiodarone. Resolved Cardiomyopathy: EF 35% RV dysfunction: doubt acute PE but maybe long standing pulm HTN NSVT: Unfortunately the tele bed in the ER that she was in did not record arrhythmias. Per ER MD she had 10-12 beats runs. Acute on chronic systolic CHF: EF 35%. Decompensated on exam HTN ?Paroxysmal afib: Coumadin is on her med list but INR was normal on admission. With h/o stroke, presumably she had afib in the past. ESRD on HD DM CVA with left weakness s/p PEG -coreg 6.25mg BID -HD per nephrology -ok for trach from cardiac standpoint Consultation Date/Type/Reason Admit Date/Time Dec 06, 2018 at 12:45 Initial Consult Date 12/06/18 Type of Consult Cardiology Requesting Provider: BOZENA PARK Date/Time of Note DATE: 12/18/18 TIME: 18:19 24 HR Interval Summary Free Text/Dictation s/p PEG. Awaiting trach tomorrow. Discovered to have a right femoral DVT and occlusion of left IJ as well. Subjective hx not possible: pt non-verbal Exam/Review of Systems Vital Signs Vitals Vital Signs Date Temp Pulse Resp B/P (MAP) Pulse Ox O2 O2 Flow FiO2 Time Delivery Rate 12/18/18 71 18 109/86 100 18:00 (94) 12/18/18 30 17:40 12/18/18 98.5 Mechanical 16:00 Ventilator Intake and Output 12/17/18 12/17/18 12/18/18 1515:00 23:00 07:00 IntakeIntake Total 354 ml 206 ml 200 ml OutputOutput Total 3000 ml 0 ml 0 ml BalanceBalance -2646 ml 206 ml 200 ml Exam Constitutional: No alert, No oriented ENMT: intubated Neck: supple; No jvd (unable to assess) Respiratory: No clear to auscultation, No crackles/rales Cardiovascular: regular rate and rhythm, edema Gastrointestinal: soft; No distended Neurological: No nl mental status, No nl speech Labs Result Diagram: 12/18/18 0648 12/17/18 0400 Results 24hrs Laboratory Tests Test 12/17/18 20:33 12/18/18 01:08 12/18/18 04:00 12/18/18 04:18 Bedside Glucose 104 75 70 Magnesium Level 2.4 Prealbumin 18.2 Phenytoin 12.8 (Dilantin) Level Test 12/18/18 06:33 12/18/18 06:48 12/18/18 08:49 12/18/18 09:51 Bedside Glucose 83 86 White Blood Count 9.3 # Red Blood Count 3.17 L Hemoglobin 9.4 L Hematocrit 30.5 L Mean Corpuscular 96.2 Volume Mean Corpuscular 29.7 Hemoglobin Mean Corpuscular 30.8 L Hemoglobin Concent Red Cell 14.8 H Distribution Width Platelet Count 174 Mean Platelet 9.9 Volume Immature 1.300 H Granulocytes % Neutrophils % 78.6 H Lymphocytes % 8.3 L Monocytes % 10.4 Eosinophils % 1.3 Basophils % 0.1 Nucleated Red 0.0 Blood Cells % Immature 0.120 H Granulocytes # Neutrophils # 7.3 Lymphocytes # 0.8 Monocytes # 1.0 H Eosinophils # 0.1 Basophils # 0.0 Nucleated Red 0.0 Blood Cells # Prothrombin Time 16.6 H Prothrombin Time 1.3 Ratio INR International 1.33 Normalized Ratio Activated 34.[address] Time Test 12/18/18 11:39 12/18/18 12:36 12/18/18 16:36 Lab Scanned Report REFERENCE LAB Bedside Glucose 101 116 Medications Medications Current Medications Ondansetron HCl (Zofran Inj) 4 mg Q6H PRN IV NAUSEA AND/OR VOMITING; Start 12/06/18 at 09:30 Albuterol (Proventil 0.083% (Neb)) 2.5 mg Q2H RESP THERAPY PRN NEB SHORTNESS OF BREATH; Start 12/06/18 at 09:30 Docusate Sodium (Colace) 100 mg Q12H PRN PO CONSTIPATION; Start 12/06/18 at 09:30 Magnesium Hydroxide (Milk Of Mag) 30 ml DAILY PRN PO CONSTIPATION; Start 12/06/18 at 09:30 Aspirin (Aspirin) 81 mg DAILY PO Last administered on 12/18/18 08:39; Admin Dose 81 MG; Start 12/06/18 at 10:30 Brimonidine Tartrate (Alphagan 0.2%) 1 drop DAILY BOTH EYES Last administered on 12/18/18 08:41; Admin Dose 1 DROP; Start 12/06/18 at 11:00 Calcium Acetate (Phoslo) 667 mg WITH MEALS PO Last administered on 12/18/18 17:03; Admin Dose 667 MG; Start 12/06/18 at 12:00 Docusate Sodium (Colace) 200 mg DAILY PO ; Start 12/06/18 at 10:30; Status Hold Lactulose (Enulose) 20 gm BID PO Last administered on 12/18/18 08:38; Admin Dose 20 GM; Start 12/06/18 at 21:00 Montelukast Sodium (Singulair) 10 mg HS PO ; Start 12/06/18 at 21:00; Status Hol d Multivit/Ca Carb/ B Cmplx/FA/Prenat (Mariaelena-Rosas) 1 tab DAILY PO Last administered on 12/18/18 08:39; Admin Dose 1 TAB; Start 12/06/18 at 10:30 Norepinephrine 250 ml @ 1.875 mls/ hr TITRATE IV Last administered on 12/07/18 13:25; Admin Dose 56.25 MLS/HR; Start 12/06/18 at 13:00 Atropine Sulfate (Atropine (Syringe)) 1 mg PRN PRN IV prn Last administered on 12/06/18 16:49; Admin Dose 1 MG; Start 12/06/18 at 16:00 Midazolam HCl 50 ml @ 1 mls/hr TITRATE IV Last administered on 12/09/18 05:09; Admin Dose 4 MLS/HR; Start 12/06/18 at 16:30 Vancomycin HCl (Vanco Iv Per Pharmacy) VANCOMYCIN PER PHARMACY PER PROTOCOL XX ; Start 12/06/18 at 17:30 Cefepime HCl 50 ml @ 100 mls/hr Q24H IVPB Last administered on 12/17/18 20:27; Admin Dose 100 MLS/HR; Start 12/06/18 at 21:00 Levetiracetam 100 ml @ 400 mls/hr Q12 IVPB Last administered on 12/18/18 08:40; Admin Dose 400 MLS/HR; Start 12/06/18 at 21:00 Dopamine HCl/ Dextrose 250 ml @ 7.613 mls/ hr TITRATE IV Last administered on 12/09/18 03:03; Admin Dose 11.419 MLS/HR; Start 12/06/18 at 17:30 Acetaminophen (Tylenol Supp) 650 mg Q4H PRN DE TEMP > 37C; Start 12/06/18 at 18:30 Meperidine HCl (Demerol) 12.5 mg Q4H PRN IV POST OPERATIVE SHIVERING; Start 12/06/18 at 18:30 Meperidine HCl (Demerol) 25 mg Q4H PRN IV POST OPERATIVE SHIVERING; Start 12/06/18 at 18:30 Eye Lubricant (Akwa Oint) 1 applic Q6 BOTH EYES Last administered on 12/18/18at 16:37; Admin Dose 1 APPLIC; Start 12/07/18 at 00:00 Eye Lubricant (Artificial Tears Oph) 2 drop Q6 BOTH EYES Last administered on 12/18/18at 16:36; Admin Dose 2 DROP; Start 12/07/18 at 00:00 Magnesium Sulfate 50 ml @ 25 mls/hr PRN PRN IVPB IV PROTOCOL; Start 12/06/18 at 20:30 Potassium Chloride 50 ml @ 25 mls/hr PRN PRN IVPB IV PROTOCOL Last administered on 12/07/18 08:33; Admin Dose 25 MLS/HR; Start 12/06/18 at 20:30 Heparin Sodium (Porcine) (Heparin (1000 Units/ml)) 4,000 unit AFTER DIALYSIS CATHETER ; Start 12/06/18 at 22:00 Albumin Human 100 ml @ 100 mls/hr WITH DIALYSIS PRN IV SBP <90 DURING DIALYSIS Last administered on 12/17/18at 11:47; Admin Dose 100 MLS/HR; Start 12/06/18 at 22:00 Sodium Chloride (NS) -To prime the dialy... DIRECTED FOR HD PRN IV HD; Start 12/06/18 at 22:00 Phenytoin 200 mg/ Sodium Chloride 54 ml @ 112 mls/hr AM IV Last administered on 12/18/18 09:47; Admin Dose 112 MLS/HR; Start 12/07/18 at 09:00 Phenytoin 200 mg/ Sodium Chloride 54 ml @ 112 mls/hr PC LUNCH IV Last administered on 12/18/18 12:38; Admin Dose 112 MLS/HR; Start 12/07/18 at 12:30 Phenytoin 300 mg/ Sodium Chloride 56 ml @ 112 mls/hr 2100 IV Last administered on 12/17/18 20:54; Admin Dose 112 MLS/HR; Start 12/07/18 at 21:00 Fentanyl 100 ml @ 2.5 mls/hr TITRATE IV Last administered on 12/08/18 06:27; Admin Dose 2.5 MLS/HR; Start 12/08/18 at 06:30 Diagnostic Test (Pha) (Accu-Chek) 1 ea 02 XX Last administered on 12/13/18at 01:36; Admin Dose 1 EA; Start 12/09/18 at 02:00 Miscellaneous Information 1 ea NOTE XX ; Start 12/08/18 at 11:30 Glucose (Glutose) 15 gm Q15M PRN PO DECREASED GLUCOSE; Start 12/08/18 at 11:30 Glucose (Glutose) 22.5 gm Q15M PRN PO DECREASED GLUCOSE; Start 12/08/18 at 11:30 Dextrose (D50w Syringe) 25 ml Q15M PRN IV DECREASED GLUCOSE; Start 12/08/18 at 11:30 Dextrose (D50w Syringe) 50 ml Q15M PRN IV DECREASED GLUCOSE; Start 12/08/18 at 11:30 Glucagon (Glucagen) 1 mg Q15M PRN IM DECREASED GLUCOSE; Start 12/08/18 at 11:30 Glucose (Glutose) 15 gm Q15M PRN BUCCAL DECREASED GLUCOSE; Start 12/08/18 at 11:30 Collagenase (Santyl) 1 applic DAILY TOP Last administered on 12/18/18at 08:51; Admin Dose 1 APPLIC; Start 12/10/18 at 09:00 Diagnostic Test (Pha) (Accu-Chek) 1 ea Q4 XX Last administered on 4/14/19at 08:21; Admin Dose 1 EA; Start 12/11/18 at 13:00 Acetaminophen (Tylenol Liquid) 650 mg Q6H PRN GTB MILD PAIN(1-3)OR ELEVATED TEMP Last administered on 12/16/18 00:16; Admin Dose 650 MG; Start 12/11/18 at 20:30 Fluconazole/ Sodium Chloride 50 ml @ 50 mls/hr Q24H IVPB Last administered on 12/18/18 14:36; Admin Dose 50 MLS/HR; Start 12/12/18 at 14:00 Insulin Aspart (Novolog Insulin Pen) NOVOLOG *MODERATE* ALGORITHM Q4 SC Last administered on 12/17/18 08:54; Admin Dose 4 UNIT; Start 12/12/18 at 13:00 Metronidazole 100 ml @ 100 mls/hr Q6 IVPB Last administered on 12/18/18 17:03; Admin Dose 100 MLS/HR; Start 12/13/18 at 12:00 Lorazepam (Ativan) 1 mg Q10MIN PRN IV SEIZURES Last administered on 12/14/18 17:16; Admin Dose 1 MG; Start 12/13/18 at 13:30 Epoetin Man-epbx (Retacrit) 6,000 unit TuThSa@1700 SC Last administered on 12/18/18 17:05; Admin Dose 6,000 UNIT; Start 12/16/18 at 17:00 Vancomycin HCl 250 ml @ 125 mls/hr Q96H IVPB Last administered on 12/15/18at 17:52; Admin Dose 125 MLS/HR; Start 12/15/18 at 18:00 Insulin Glargine (Lantus) 35 units DAILY@0800 SC Last administered on 12/18/18at 08:50; Admin Dose 35 UNITS; Start 12/17/18 at 08:00 Miscellaneous Information 1 ea NOTE XX ; Start 12/16/18 at 10:00 Glucose (Glutose) 15 gm Q15M PRN PO DECREASED GLUCOSE; Start 12/16/18 at 10:00 Glucose (Glutose) 22.5 gm Q15M PRN PO DECREASED GLUCOSE; Start 12/16/18 at 10:00 Dextrose (D50w Syringe) 25 ml Q15M PRN IV DECREASED GLUCOSE; Start 12/16/18 at 10:00 Dextrose (D50w Syringe) 50 ml Q15M PRN IV DECREASED GLUCOSE; Start 12/16/18 at 10:00 Glucagon (Glucagen) 1 mg Q15M PRN IM DECREASED GLUCOSE; Start 12/16/18 at 10:00 Glucose (Glutose) 15 gm Q15M PRN BUCCAL DECREASED GLUCOSE; Start 12/16/18 at 10:00 Hydralazine HCl (Apresoline) 10 mg Q4H PRN IV bp Last administered on 12/17/18at 07:03; Admin Dose 10 MG; Start 12/17/18 at 07:00 Carvedilol (Coreg) 6.25 mg BID NGT Last administered on 12/18/18 08:39; Admin Dose 6.25 MG; Start 12/17/18 at 21:00 Famotidine (Pepcid) 20 mg Q48H PO ; Start 12/19/18 at 09:00 Heparin Sodium (Porcine) (Heparin (1000 Units/ml)) 8,100 unit PER PROTOCOL PRN IV aPTT<47; Start 12/18/18 at 09:30 Heparin Sodium (Porcine) (Heparin (1000 Units/ml)) 4,100 unit PER PROTOCOL PRN IV aPTT<47-57; Start 12/18/18 at 09:30 Heparin Sodium (Porcine) 250 ml @ 18 mls/hr PER PROTOCOL IV Last administered on 12/18/18at 11:41; Admin Dose 18 MLS/HR; Start 12/18/18 at 11:00 JJ BRANCH Dec 18, 2018 18:29
[2018-12-18] MEDS: CEFEPIME 1GM/50 ML (PMX) 50 ML IVPB SCH (20:34)
[2018-12-18] MEDS: PHENYTOIN 300 MG in SOD CHLORIDE 0.9% 50 ML IV SCH (22:31)
[2018-12-19] VITALS (40 sets, daily range): BP systolic 72–116; BP diastolic 36–73; PULSE 65–77; RESP 12–24
[2018-12-19] MEDS: INSULIN ASPART [NOVOLOG] 3 ML PEN SC SCH ×3 (01:00→08:55)
[2018-12-19] MEDS: ACCU-CHEK XX SCH ×7 (01:11→21:00)
[2018-12-19] MEDS: HEPARIN 25000 UNITS/250 ML 250 ML IV SCH ×2 (04:02→18:05)
[2018-12-19] MEDS: metroNIDAZOLE 500 MG/NS (PMX) 100 ML IVPB SCH ×3 (05:30→17:27)
[2018-12-19] MEDS: OCULAR LUBRICANT 3.5 GM OPH OINT BOTH EYES SCH ×3 (05:30→17:45)
[2018-12-19] MEDS: ARTIFICIAL TEARS 15 ML OPH BOTH EYES SCH ×3 (05:30→17:27)
[2018-12-19] MEDS: CALCIUM ACETATE 667 MG CAP PO SCH ×3 (07:35→17:27)
[2018-12-19] MEDS: INSULIN GLARGINE [LANTus] (100 UNITS/ML) SYG SC SCH (08:00)
[2018-12-19] MEDS: COLLAGENASE 5 GM (UD JAR) TOP SCH (08:56)
[2018-12-19] MEDS: BRIMONIDINE 0.2% 5 ML BTL BOTH EYES SCH (08:56)
[2018-12-19] MEDS ORDERED: FAMOTIDINE 20 MG TAB PO SCH (09:00)
[2018-12-19] MEDS: LACTULOSE 30ML CUP PO SCH ×2 (09:02→20:17)
[2018-12-19] MEDS: LEVETIRACETAM 500 MG (PMX) 100 ML IVPB SCH ×2 (09:02→21:11)
[2018-12-19] MEDS: ASPIRIN 81 MG TAB PO SCH (09:02)
[2018-12-19] MEDS: MULTIVIT/CA CARB/B CMPLX/FA TAB PO SCH (09:02)
--- NOTE | 2018-12-19 09:54 | CONS ---
Consult Date/Type/Reason Admit Date/Time Dec 06, 2018 at 12:45 Initial Consult Date 12/06/18 Type of Consult Pulmonary Requesting Provider: BOZENA PARK Date/Time of Note DATE: 12/19/18 TIME: 09:52 Subjective Patient intubated on mechanical ventilation. Somnolent pending tracheostomy today. Objective Vital Signs Date Temp Pulse Resp B/P (MAP) Pulse Ox O2 O2 Flow FiO2 Time Delivery Rate 12/19/18 30 08:00 12/19/18 68 08:00 12/19/18 14 100/45 100 Mechanical 08:00 (63) Ventilator 12/19/18 99.4 07:26 Intake and Output 12/18/18 12/18/18 12/19/18 1515:00 23:00 07:00 IntakeIntake Total 678 ml 708 ml 504 ml BalanceBalance 678 ml 708 ml 504 ml Exam GENERAL: Morbidly obese young lady orally intubated on mechanical ventilation VITAL SIGNS: per chart NECK: Supple. No JVD or lymphadenopathy. CARDIAC EXAM: S1, S2. No added sounds or murmurs. CHEST: Diminished air entry bilaterally ABDOMEN: Soft, nontender. No guarding or rebound. EXTREMITIES: No cyanosis, clubbing, edema +2 NEUROLOGIC: Generalized weakness. Vent Setting Ventilator Support Mode: AC Fraction of Inspired Oxygen pe: 30 Positive End Expiratory Pressu: 5.0 Results/Medications Result Diagram: 12/19/18 0400 12/19/18 0400 Results 24 hrs Laboratory Tests Test 12/18/18 11:39 12/18/18 12:36 12/18/18 16:36 12/18/18 19:02 Lab Scanned Report REFERENCE LAB Bedside Glucose 101 116 Activated > 180.0 *H Partial Thrombopla st Time Test 12/18/18 20:38 12/18/18 22:02 12/19/18 01:11 12/19/18 04:00 Bedside Glucose 141 122 Activated 62.1 H 101.9 *H Partial Thrombopla st Time White Blood Count 8.6 Red Blood Count 2.78 L Hemoglobin 8.2 L Hematocrit 27.0 L Mean Corpuscular 97.1 Volume Mean Corpuscular 29.5 Hemoglobin Mean Corpuscular 30.4 L Hemoglobin Concent Red Cell 14.9 H Distribution Width Platelet Count 194 Mean Platelet 9.8 Volume Immature 1.300 H Granulocytes % Neutrophils % 77.9 H Lymphocytes % 9.2 L Monocytes % 9.8 Eosinophils % 1.6 Basophils % 0.2 Nucleated Red 0.0 Blood Cells % Immature 0.110 H Granulocytes # Neutrophils # 6.7 Lymphocytes # 0.8 Monocytes # 0.8 Eosinophils # 0.1 Basophils # 0.0 Nucleated Red 0.0 Blood Cells # Sodium Level 140 Potassium Level 3.9 Chloride Level 103 Carbon Dioxide 24 Level Anion Gap 13 Blood Urea 67 H Nitrogen Creatinine 5.15 H Glucose Level 110 # Calcium Level 9.6 Phosphorus Level 3.0 Magnesium Level 2.3 Albumin 3.3 Test 12/19/18 04:55 12/19/18 08:55 Bedside Glucose 104 95 Medications Current Medications Ondansetron HCl (Zofran Inj) 4 mg Q6H PRN IV NAUSEA AND/OR VOMITING; Start 12/06/18 at 09:30 Albuterol (Proventil 0.083% (Neb)) 2.5 mg Q2H RESP THERAPY PRN NEB SHORTNESS OF BREATH; Start 12/06/18 at 09:30 Docusate Sodium (Colace) 100 mg Q12H PRN PO CONSTIPATION; Start 12/06/18 at 09:30 Magnesium Hydroxide (Milk Of Mag) 30 ml DAILY PRN PO CONSTIPATION; Start 12/06/18 at 09:30 Aspirin (Aspirin) 81 mg DAILY PO Last administered on 12/19/18at 09:02; Admin Dose 81 MG; Start 12/06/18 at 10:30 Brimonidine Tartrate (Alphagan 0.2%) 1 drop DAILY BOTH EYES Last administered on 12/19/18at 08:56; Admin Dose 1 DROP; Start 12/06/18 at 11:00 Calcium Acetate (Phoslo) 667 mg WITH MEALS PO Last administered on 12/18/18at 17:03; Admin Dose 667 MG; Start 12/06/18 at 12:00 Docusate Sodium (Colace) 200 mg DAILY PO ; Start 12/06/18 at 10:30; Status Hold Lactulose (Enulose) 20 gm BID PO Last administered on 12/19/18at 09:02; Admin Dose 20 GM; Start 12/06/18 at 21:00 Montelukast Sodium (Singulair) 10 mg HS PO ; Start 12/06/18 at 21:00; Status Hold Multivit/Ca Carb/ B Cmplx/FA/Prenat (Mariaelena-Rosas) 1 tab DAILY PO Last administered on 12/19/18 09:02; Admin Dose 1 TAB; Start 12/06/18 at 10:30 Norepinephrine 250 ml @ 1.875 mls/ hr TITRATE IV Last administered on 12/07/18 13:25; Admin Dose 56.25 MLS/HR; Start 12/06/18 at 13:00 Atropine Sulfate (Atropine (Syringe)) 1 mg PRN PRN IV prn Last administered on 12/06/18 16:49; Admin Dose 1 MG; Start 12/06/18 at 16:00 Midazolam HCl 50 ml @ 1 mls/hr TITRATE IV Last administered on 12/09/18 05:09; Admin Dose 4 MLS/HR; Start 12/06/18 at 16:30 Vancomycin HCl (Vanco Iv Per Pharmacy) VANCOMYCIN PER PHARMACY PER PROTOCOL XX ; Start 12/06/18 at 17:30 Cefepime HCl 50 ml @ 100 mls/hr Q24H IVPB Last administered on 12/18/18 20:34; Admin Dose 100 MLS/HR; Start 12/06/18 at 21:00 Levetiracetam 100 ml @ 400 mls/hr Q12 IVPB Last administered on 12/19/18 09:02; Admin Dose 400 MLS/HR; Start 12/06/18 at 21:00 Dopamine HCl/ Dextrose 250 ml @ 7.613 mls/ hr TITRATE IV Last administered on 12/09/18 03:03; Admin Dose 11.419 MLS/HR; Start 12/06/18 at 17:30 Acetaminophen (Tylenol Supp) 650 mg Q4H PRN MA TEMP > 37C; Start 12/06/18 at 18:30 Meperidine HCl (Demerol) 12.5 mg Q4H PRN IV POST OPERATIVE SHIVERING; Start 12/06/18 at 18:30 Meperidine HCl (Demerol) 25 mg Q4H PRN IV POST OPERATIVE SHIVERING; Start 12/06/18 at 18:30 Eye Lubricant (Akwa Oint) 1 applic Q6 BOTH EYES Last administered on 12/19/18 05:30; Admin Dose 1 APPLIC; Start 12/07/18 at 00:00 Eye Lubricant (Artificial Tears Oph) 2 drop Q6 BOTH EYES Last administered on 12/19/18at 05:30; Admin Dose 2 DROP; Start 12/07/18 at 00:00 Magnesium Sulfate 50 ml @ 25 mls/hr PRN PRN IVPB IV PROTOCOL; Start 12/06/18 at 20:30 Potassium Chloride 50 ml @ 25 mls/hr PRN PRN IVPB IV PROTOCOL Last administered on 12/07/18at 08:33; Admin Dose 25 MLS/HR; Start 12/06/18 at 20:30 Heparin Sodium (Porcine) (Heparin (1000 Units/ml)) 4,000 unit AFTER DIALYSIS CATHETER ; Start 12/06/18 at 22:00 Albumin Human 100 ml @ 100 mls/hr WITH DIALYSIS PRN IV SBP <90 DURING DIALYSIS Last administered on 12/17/18at 11:47; Admin Dose 100 MLS/HR; Start 12/06/18 at 22:00 Sodium Chloride (NS) -To prime the dialy... DIRECTED FOR HD PRN IV HD; Start 12/06/18 at 22:00 Phenytoin 300 mg/ Sodium Chloride 56 ml @ 112 mls/hr 2100 IV Last administered on 12/18/18at 22:31; Admin Dose 112 MLS/HR; Start 12/07/18 at 21:00 Fentanyl 100 ml @ 2.5 mls/hr TITRATE IV Last administered on 12/08/18at 06:27; Admin Dose 2.5 MLS/HR; Start 12/08/18 at 06:30 Diagnostic Test (Pha) (Accu-Chek) 1 ea 02 XX Last administered on 12/13/18at 01:36; Admin Dose 1 EA; Start 12/09/18 at 02:00 Miscellaneous Information 1 ea NOTE XX ; Start 12/08/18 at 11:30 Glucose (Glutose) 15 gm Q15M PRN PO DECREASED GLUCOSE; Start 12/08/18 at 11:30 Glucose (Glutose) 22.5 gm Q15M PRN PO DECREASED GLUCOSE; Start 12/08/18 at 11:30 Dextrose (D50w Syringe) 25 ml Q15M PRN IV DECREASED GLUCOSE; Start 12/08/18 at 11:30 Dextrose (D50w Syringe) 50 ml Q15M PRN IV DECREASED GLUCOSE; Start 12/08/18 at 11:30 Glucagon (Glucagen) 1 mg Q15M PRN IM DECREASED GLUCOSE; Start 12/08/18 at 11:30 Glucose (Glutose) 15 gm Q15M PRN BUCCAL DECREASED GLUCOSE; Start 12/08/18 at 11:30 Collagenase (Santyl) 1 applic DAILY TOP Last administered on 12/19/18 08:56; Admin Dose 1 APPLIC; Start 12/10/18 at 09:00 Diagnostic Test (Pha) (Accu-Chek) 1 ea Q4 XX Last administered on 12/19/18 04:56; Admin Dose 1 EA; Start 12/11/18 at 13:00 Acetaminophen (Tylenol Liquid) 650 mg Q6H PRN GTB MILD PAIN(1-3)OR ELEVATED TEMP Last administered on 12/16/18at 00:16; Admin Dose 650 MG; Start 12/11/18 at 20:30 Fluconazole/ Sodium Chloride 50 ml @ 50 mls/hr Q24H IVPB Last administered on 12/18/18 14:36; Admin Dose 50 MLS/HR; Start 12/12/18 at 14:00 Insulin Aspart (Novolog Insulin Pen) NOVOLOG *MODERATE* ALGORITHM Q4 SC Last administered on 12/17/18 08:54; Admin Dose 4 UNIT; Start 12/12/18 at 13:00 Metronidazole 100 ml @ 100 mls/hr Q6 IVPB Last administered on 12/19/18 05:30; Admin Dose 100 MLS/HR; Start 12/13/18 at 12:00 Lorazepam (Ativan) 1 mg Q10MIN PRN IV SEIZURES Last administered on 12/14/18 17:16; Admin Dose 1 MG; Start 12/13/18 at 13:30 Epoetin Man-epbx (Retacrit) 6,000 unit TuThSa@1700 SC Last administered on 12/18/18 17:05; Admin Dose 6,000 UNIT; Start 12/16/18 at 17:00 Vancomycin HCl 250 ml @ 125 mls/hr Q96H IVPB Last administered on 12/15/18 17:52; Admin Dose 125 MLS/HR; Start 12/15/18 at 18:00 Insulin Glargine (Lantus) 35 units DAILY@0800 SC Last administered on 12/18/18at 08:50; Admin Dose 35 UNITS; Start 12/17/18 at 08:00 Miscellaneous Information 1 ea NOTE XX ; Start 12/16/18 at 10:00 Glucose (Glutose) 15 gm Q15M PRN PO DECREASED GLUCOSE; Start 12/16/18 at 10:00 Glucose (Glutose) 22.5 gm Q15M PRN PO DECREASED GLUCOSE; Start 12/16/18 at 10:00 Dextrose (D50w Syringe) 25 ml Q15M PRN IV DECREASED GLUCOSE; Start 12/16/18 at 10:00 Dextrose (D50w Syringe) 50 ml Q15M PRN IV DECREASED GLUCOSE; Start 12/16/18 at 10:00 Glucagon (Glucagen) 1 mg Q15M PRN IM DECREASED GLUCOSE; Start 12/16/18 at 10:00 Glucose (Glutose) 15 gm Q15M PRN BUCCAL DECREASED GLUCOSE; Start 12/16/18 at 10:00 Hydralazine HCl (Apresoline) 10 mg Q4H PRN IV bp Last administered on 12/17/18at 07:03; Admin Dose 10 MG; Start 12/17/18 at 07:00 Carvedilol (Coreg) 6.25 mg BID NGT Last administered on 12/19/18at 09:02; Admin Dose 6.25 MG; Start 12/17/18 at 21:00 Famotidine (Pepcid) 20 mg Q48H PO Last administered on 12/19/18at 09:02; Admin Dose 20 MG; Start 12/19/18 at 09:00 Heparin Sodium (Porcine) (Heparin (1000 Units/ml)) 8,100 unit PER PROTOCOL PRN IV aPTT<47; Start 12/18/18 at 09:30 Heparin Sodium (Porcine) (Heparin (1000 Units/ml)) 4,100 unit PER PROTOCOL PRN IV aPTT<47-57; Start 12/18/18 at 09:30 Heparin Sodium (Porcine) 250 ml @ 18 mls/hr PER PROTOCOL IV Last administered on 12/19/18at 04:02; Admin Dose 14 MLS/HR; Start 12/18/18 at 11:00 Phenytoin 200 mg/ Sodium Chloride 54 ml @ 112 mls/hr AM IV ; Start 12/19/18 at 09:00 Phenytoin 200 mg/ Sodium Chloride 54 ml @ 112 mls/hr PC LUNCH IV ; Start 12/19/18 at 12:30 Assessment/Plan Hospital Course (Demo Recall) Assessment 1. Cardiopulmonary arrest with likely anoxic brain injury. 2. Recent seizure history of seizures 3. Significant anemia questionable GI bleed H&H currently stable. 4. Renal insufficiency possible ATN injury 5. Acute hypoxemic respiratory failure likely secondary to aspiration pneumonia versus ARDS 6. End-stage renal failure 7. Acute venous thromboembolism Plan 1. Continue mechanical ventilation pending tracheostomy. Scheduled for today. 2. Severe anoxic brain injury. Patient will not be weaned from mechanical ventilation. 3. Status post G-tube placement, start tube feeding 4. Renal recommendations 5. Tube feeding as tolerated 6. Continue heparin drip off to tracheostomy placed. Danielle baltazar. Critical care time 40 minutes. SEDRICK MORALEZ MD, [facility] Dec 19, 2018 09:54
[2018-12-19] MEDS: SOD CHLORIDE 0.9% IV SCH ×2 (10:22→12:32)
[2018-12-19] MEDS: PHENYTOIN IV SCH ×2 (10:22→12:32)
--- NOTE | 2018-12-19 10:47 | CONS ---
Assessment/Plan Assessment/Plan Hospital Course 47 F c/ reported Hx of stroke and epilepsy, among other comorbidities, who is currently admitted to the [facility] ICU following cardiac arrest. Now s/p TTM. On neurologic examination, she has preserved brainstem activity and a withdrawal motor response.. Her prognosis for meaningful neurologic recovery is probably poor. CTH was without acute intracranial pathology, though it was notable for severe atrophy and chronic subdurals. Initial EEG was without epileptiform activity; repeat EEG is the same. P: Continue Dilantin maintenance per ops for now; titrate prn to goal level 10-20 Continue Keppra per ops for now Ativan iv prn prolonged seizure or cluster Continue to limit sedating medications where possible Other medical management and supportive care per primary Will follow Consultation Date/Type/Reason Admit Date/Time Dec 06, 2018 at 12:45 Type of Consult Neurology Requesting Provider: BOZENA PARK Date/Time of Note DATE: 12/19/18 TIME: 10:47 24 HR Interval Summary Free Text/Dictation Continues critical care. Scheduled for trach today. Subjective hx not possible: pt non-verbal, pt critical Exam Vital Signs Vitals Vital Signs Date Temp Pulse Resp B/P (MAP) Pulse Ox O2 O2 Flow FiO2 Time Delivery Rate 12/19/18 30 08:00 12/19/18 68 08:00 12/19/18 14 100/45 100 Mechanical 08:00 (63) Ventilator 12/19/18 99.4 07:26 Intake and Output 12/18/18 12/18/18 12/19/18 1515:00 23:00 07:00 IntakeIntake Total 678 ml 708 ml 504 ml BalanceBalance 678 ml 708 ml 504 ml Exam PE: Gen Appearance: No Apparent Distress HEENT: Intubated; edematous Cardiovascular: Regular rate Abdomen: Soft Extremities: Dry; edematous NE: The patient was obtunded and nonverbal. Cranial nerve examination was limited by mental status. R pupil was sluggishly reactive to light; cataract in L pupil. Funduscopic examination was limited. Face was grossly symmetric, w/ present corneal and cough reflexes. Tone was normal. Muscle bulk was normal. I did not see fasciculations. The patient strongly withdrew her lower extremities to noxious stimuli. Coordination and gait testing was limited by mental status. Arm and leg reflexes were symmetric. Sun's sign was absent. Plantar responses were extensor. APARNA AQUINO NP Dec 19, 2018 10:47
--- NOTE | 2018-12-19 10:52 | CONS ---
Assessment/Plan Assessment/Plan Hospital Course (Demo Recall) s/p cardiac arrest:First event was torsades in setting of prolonged QT caused by amiodarone. Subsequent PEA events. Trops negative and no ischemic EKG changes. Had a bradycardic arrest as well which may have been metabolic or related to lidocaine. EF is 35% and there is significant RV dysfunction and likely underlying severe pulm HTN which cannot be assessed accurately by echo. If she recovers she will need a cardiac cath for evaluation. Staph aureus bacteremia so may all have been sepsis related Shock: Septic with bacteremia. Off pressors Staph aureus bacteremia: ?from decubs. Repeat cultures negative Torsades: due to amiodarone induced prolonged QTc. Now resolved Prolonged QT: due to amiodarone. Resolved Cardiomyopathy: EF 35% RV dysfunction: doubt acute PE but maybe long standing pulm HTN NSVT: Unfortunately the tele bed in the ER that she was in did not record arrhythmias. Per ER MD she had 10-12 beats runs. Acute on chronic systolic CHF: EF 35%. Decompensated on exam HTN ?Paroxysmal afib: Coumadin is on her med list but INR was normal on admission. With h/o stroke, presumably she had afib in the past. ESRD on HD DM CVA with left weakness s/p PEG -coreg 3.125mg BID -heparin drip. Hold for trach -HD per nephrology -ok for trach from cardiac standpoint Consultation Date/Type/Reason Admit Date/Time Dec 06, 2018 at 12:45 Initial Consult Date 12/06/18 Type of Consult Cardiology Requesting Provider: BOZENA PARK Date/Time of Note DATE: 12/19/18 TIME: 10:51 24 HR Interval Summary Free Text/Dictation No events. Plan for trach today Exam/Review of Systems Vital Signs Vitals Vital Signs Date Temp Pulse Resp B/P (MAP) Pulse Ox O2 O2 Flow FiO2 Time Delivery Rate 12/19/18 67 18 98/43 (61) 100 Mechanical 10:00 Ventilator 12/19/18 30 08:00 12/19/18 99.4 07:26 Intake and Output 12/18/18 12/18/18 12/19/18 1515:00 23:00 07:00 IntakeIntake Total 678 ml 708 ml 504 ml BalanceBalance 678 ml 708 ml 504 ml Exam Constitutional: No alert, No oriented Head: normocephalic Neck: supple; No jvd Respiratory: diminished breath sounds; No clear to auscultation Cardiovascular: edema (1+ right arm) Gastrointestinal: soft; No distended Musculoskeletal: No nl extremities to inspection Neurological: No nl mental status, No nl speech Labs Result Diagram: 12/19/18 0400 12/19/18 0400 Results 24hrs Laboratory Tests Test 12/18/18 11:39 12/18/18 12:36 12/18/18 16:36 12/18/18 19:02 Lab Scanned Report REFERENCE LAB Bedside Glucose 101 116 Activated > 180.0 *H Partial Thrombopla st Time Test 12/18/18 20:38 12/18/18 22:02 12/19/18 01:11 12/19/18 04:00 Bedside Glucose 141 122 Activated 62.1 H 101.9 *H Partial Thrombopla st Time White Blood Count 8.6 Red Blood Count 2.78 L Hemoglobin 8.2 L Hematocrit 27.0 L Mean Corpuscular 97.1 Volume Mean Corpuscular 29.5 Hemoglobin Mean Corpuscular 30.4 L Hemoglobin Concent Red Cell 14.9 H Distribution Width Platelet Count 194 Mean Platelet 9.8 Volume Immature 1.300 H Granulocytes % Neutrophils % 77.9 H Lymphocytes % 9.2 L Monocytes % 9.8 Eosinophils % 1.6 Basophils % 0.2 Nucleated Red 0.0 Blood Cells % Immature 0.110 H Granulocytes # Neutrophils # 6.7 Lymphocytes # 0.8 Monocytes # 0.8 Eosinophils # 0.1 Basophils # 0.0 Nucleated Red 0.0 Blood Cells # Sodium Level 140 Potassium Level 3.9 Chloride Level 103 Carbon Dioxide 24 Level Anion Gap 13 Blood Urea 67 H Nitrogen Creatinine 5.15 H Glucose Level 110 # Calcium Level 9.6 Phosphorus Level 3.0 Magnesium Level 2.3 Albumin 3.3 Test 12/19/18 04:55 12/19/18 08:55 Bedside Glucose 104 95 Medications Medications Current Medications Ondansetron HCl (Zofran Inj) 4 mg Q6H PRN IV NAUSEA AND/OR VOMITING; Start 12/06/18 at 09:30 Albuterol (Proventil 0.083% (Neb)) 2.5 mg Q2H RESP THERAPY PRN NEB SHORTNESS OF BREATH; Start 12/06/18 at 09:30 Docusate Sodium (Colace) 100 mg Q12H PRN PO CONSTIPATION; Start 12/06/18 at 09:30 Magnesium Hydroxide (Milk Of Mag) 30 ml DAILY PRN PO CONSTIPATION; Start 12/06/18 at 09:30 Aspirin (Aspirin) 81 mg DAILY PO Last administered on 12/19/18 09:02; Admin Dose 81 MG; Start 12/06/18 at 10:30 Brimonidine Tartrate (Alphagan 0.2%) 1 drop DAILY BOTH EYES Last administered on 12/19/18 08:56; Admin Dose 1 DROP; Start 12/06/18 at 11:00 Calcium Acetate (Phoslo) 667 mg WITH MEALS PO Last administered on 12/18/18 17:03; Admin Dose 667 MG; Start 12/06/18 at 12:00 Docusate Sodium (Colace) 200 mg DAILY PO ; Start 12/06/18 at 10:30; Status Hold Lactulose (Enulose) 20 gm BID PO Last administered on 12/19/18 09:02; Admin Dose 20 GM; Start 12/06/18 at 21:00 Montelukast Sodium (Singulair) 10 mg HS PO ; Start 12/06/18 at 21:00; Status Hold Multivit/Ca Carb/ B Cmplx/FA/Prenat (Mariaelena-Rosas) 1 tab DAILY PO Last administered on 12/19/18 09:02; Admin Dose 1 TAB; Start 12/06/18 at 10:30 Norepinephrine 250 ml @ 1.875 mls/ hr TITRATE IV Last administered on 12/07/18 13:25; Admin Dose 56.25 MLS/HR; Start 12/06/18 at 13:00 Atropine Sulfate (Atropine (Syringe)) 1 mg PRN PRN IV prn Last administered on 12/06/18 16:49; Admin Dose 1 MG; Start 12/06/18 at 16:00 Midazolam HCl 50 ml @ 1 mls/hr TITRATE IV Last administered on 12/09/18 05:09; Admin Dose 4 MLS/HR; Start 12/06/18 at 16:30 Vancomycin HCl (Vanco Iv Per Pharmacy) VANCOMYCIN PER PHARMACY PER PROTOCOL XX ; Start 12/06/18 at 17:30 Cefepime HCl 50 ml @ 100 mls/hr Q24H IVPB Last administered on 12/18/18at 20:34; Admin Dose 100 MLS/HR; Start 12/06/18 at 21:00 Levetiracetam 100 ml @ 400 mls/hr Q12 IVPB Last administered on 12/19/18at 09:02; Admin Dose 400 MLS/HR; Start 12/06/18 at 21:00 Dopamine HCl/ Dextrose 250 ml @ 7.613 mls/ hr TITRATE IV Last administered on 12/09/18 03:03; Admin Dose 11.419 MLS/HR; Start 12/06/18 at 17:30 Acetaminophen (Tylenol Supp) 650 mg Q4H PRN [place] TEMP > 37C; Start 12/06/18 at 18:30 Meperidine HCl (Demerol) 12.5 mg Q4H PRN IV POST OPERATIVE SHIVERING; Start 12/06/18 at 18:30 Meperidine HCl (Demerol) 25 mg Q4H PRN IV POST OPERATIVE SHIVERING; Start 12/06/18 at 18:30 Eye Lubricant (Akwa Oint) 1 applic Q6 BOTH EYES Last administered on 12/19/18 05:30; Admin Dose 1 APPLIC; Start 12/07/18 at 00:00 Eye Lubricant (Artificial Tears Oph) 2 drop Q6 BOTH EYES Last administered on 12/19/18 05:30; Admin Dose 2 DROP; Start 12/07/18 at 00:00 Magnesium Sulfate 50 ml @ 25 mls/hr PRN PRN IVPB IV PROTOCOL; Start 12/06/18 at 20:30 Potassium Chloride 50 ml @ 25 mls/hr PRN PRN IVPB IV PROTOCOL Last administered on 12/07/18at 08:33; Admin Dose 25 MLS/HR; Start 12/06/18 at 20:30 Heparin Sodium (Porcine) (Heparin (1000 Units/ml)) 4,000 unit AFTER DIALYSIS CATHETER ; Start 12/06/18 at 22:00 Albumin Human 100 ml @ 100 mls/hr WITH DIALYSIS PRN IV SBP <90 DURING DIALYSIS Last administered on 12/17/18at 11:47; Admin Dose 100 MLS/HR; Start 12/06/18 at 22:00 Sodium Chloride (NS) -To prime the dialy... DIRECTED FOR HD PRN IV HD; Start 12/06/18 at 22:00 Phenytoin 300 mg/ Sodium Chloride 56 ml @ 112 mls/hr 2100 IV Last administered on 12/18/18 22:31; Admin Dose 112 MLS/HR; Start 12/07/18 at 21:00 Fentanyl 100 ml @ 2.5 mls/hr TITRATE IV Last administered on 12/08/18 06:27; Admin Dose 2.5 MLS/HR; Start 12/08/18 at 06:30 Diagnostic Test (Pha) (Accu-Chek) 1 ea 02 XX Last administered on 12/13/18 01:36; Admin Dose 1 EA; Start 12/09/18 at 02:00 Miscellaneous Information 1 ea NOTE XX ; Start 12/08/18 at 11:30 Glucose (Glutose) 15 gm Q15M PRN PO DECREASED GLUCOSE; Start 12/08/18 at 11:30 Glucose (Glutose) 22.5 gm Q15M PRN PO DECREASED GLUCOSE; Start 12/08/18 at 11:30 Dextrose (D50w Syringe) 25 ml Q15M PRN IV DECREASED GLUCOSE; Start 12/08/18 at 11:30 Dextrose (D50w Syringe) 50 ml Q15M PRN IV DECREASED GLUCOSE; Start 12/08/18 at 11:30 Glucagon (Glucagen) 1 mg Q15M PRN IM DECREASED GLUCOSE; Start 12/08/18 at 11:30 Glucose (Glutose) 15 gm Q15M PRN BUCCAL DECREASED GLUCOSE; Start 12/08/18 at 11:30 Collagenase (Santyl) 1 applic DAILY TOP Last administered on 12/19/18at 08:56; Admin Dose 1 APPLIC; Start 12/10/18 at 09:00 Diagnostic Test (Pha) (Accu-Chek) 1 ea Q4 XX Last administered on 12/19/18 04:56; Admin Dose 1 EA; Start 12/11/18 at 13:00 Acetaminophen (Tylenol Liquid) 650 mg Q6H PRN GTB MILD PAIN(1-3)OR ELEVATED TEMP Last administered on 12/16/18at 00:16; Admin Dose 650 MG; Start 12/11/18 at 20:30 Fluconazole/ Sodium Chloride 50 ml @ 50 mls/hr Q24H IVPB Last administered on 12/18/18 14:36; Admin Dose 50 MLS/HR; Start 12/12/18 at 14:00 Insulin Aspart (Novolog Insulin Pen) NOVOLOG *MODERATE* ALGORITHM Q4 SC Last administered on 12/17/18at 08:54; Admin Dose 4 UNIT; Start 12/12/18 at 13:00 Metronidazole 100 ml @ 100 mls/hr Q6 IVPB Last administered on 12/19/18at 05:30; Admin Dose 100 MLS/HR; Start 12/13/18 at 12:00 Lorazepam (Ativan) 1 mg Q10MIN PRN IV SEIZURES Last administered on 12/14/18at 17:16; Admin Dose 1 MG; Start 12/13/18 at 13:30 Epoetin Man-epbx (Retacrit) 6,000 unit TuThSa@1700 SC Last administered on 12/18/18at 17:05; Admin Dose 6,000 UNIT; Start 12/16/18 at 17:00 Vancomycin HCl 250 ml @ 125 mls/hr Q96H IVPB Last administered on 12/15/18at 17:52; Admin Dose 125 MLS/HR; Start 12/15/18 at 18:00 Insulin Glargine (Lantus) 35 units DAILY@0800 SC Last administered on 12/18/18at 08:50; Admin Dose 35 UNITS; Start 12/17/18 at 08:00 Miscellaneous Information 1 ea NOTE XX ; Start 12/16/18 at 10:00 Glucose (Glutose) 15 gm Q15M PRN PO DECREASED GLUCOSE; Start 12/16/18 at 10:00 Glucose (Glutose) 22.5 gm Q15M PRN PO DECREASED GLUCOSE; Start 12/16/18 at 10 :00 Dextrose (D50w Syringe) 25 ml Q15M PRN IV DECREASED GLUCOSE; Start 12/16/18 at 10:00 Dextrose (D50w Syringe) 50 ml Q15M PRN IV DECREASED GLUCOSE; Start 12/16/18 at 10:00 Glucagon (Glucagen) 1 mg Q15M PRN IM DECREASED GLUCOSE; Start 12/16/18 at 10:00 Glucose (Glutose) 15 gm Q15M PRN BUCCAL DECREASED GLUCOSE; Start 12/16/18 at 10:00 Hydralazine HCl (Apresoline) 10 mg Q4H PRN IV bp Last administered on 12/17/18at 07:03; Admin Dose 10 MG; Start 12/17/18 at 07:00 Carvedilol (Coreg) 6.25 mg BID NGT Last administered on 12/19/18 09:02; Admin Dose 6.25 MG; Start 12/17/18 at 21:00 Famotidine (Pepcid) 20 mg Q48H PO Last administered on 12/19/18 09:02; Admin Dose 20 MG; Start 12/19/18 at 09:00 Heparin Sodium (Porcine) (Heparin (1000 Units/ml)) 8,100 unit PER PROTOCOL PRN IV aPTT<47; Start 12/18/18 at 09:30 Heparin Sodium (Porcine) (Heparin (1000 Units/ml)) 4,100 unit PER PROTOCOL PRN IV aPTT<47-57; Start 12/18/18 at 09:30 Heparin Sodium (Porcine) 250 ml @ 18 mls/hr PER PROTOCOL IV Last administered on 12/19/18 04:02; Admin Dose 14 MLS/HR; Start 12/18/18 at 11:00 Phenytoin 200 mg/ Sodium Chloride 54 ml @ 112 mls/hr AM IV Last administered on 12/19/18at 10:22; Admin Dose 112 MLS/HR; Start 12/19/18 at 09:00 Phenytoin 200 mg/ Sodium Chloride 54 ml @ 112 mls/hr PC LUNCH IV ; Start 12/19/18 at 12:30 JJ BRANCH Dec 19, 2018 10:52
[2018-12-19] MEDS ORDERED: DEXTROSE 5%-0.45% NACL 1,000 ML IV SCH (11:00)
--- NOTE | 2018-12-19 12:29 | PN ---
Date/Time of Note Date/Time of Note DATE: 12/19/18 TIME: 12:19 Assessment/Plan VTE Prophylaxis Risk score (from Ns)>0 risk: 7 SCD applied (from Ns): No SCD contraindicated: DVT Pharmacological prophylaxis: heparin Lines/Catheters IV [facility] Type [facility]from [facility] Central Line Central line still needed: Yes Urinary Cath still in place: No Assessment/Plan Assessment/Plan 1. Sepsis secondary to staph bacteremia and aspiration- improving - remains stable, afebrile and nl WBC - ID on board and appreciate recommendations. Continue on current antibiotics - Blood cultures noted with repeat results negative 2. R proximal femoral DVT - heparin drip on board and will transition to Eliquis after trach placed and hgb stabilizes - noted with DVT in IJ, axial, cephalic and brachial veins as well 3. s/p Cardiac arrest with ROSC - s/p completion of hypothermia protocol - Initially presented with NSVT and went into torsades then coded. Patient coded another 3 times total secondary to PEA arrest with ROSC - Cardiology on board and appreciate recommendations. 4. Chronic blindness - Chronic left-sided blindness secondary to diabetic retinopathy, patient also has moderate to severe right-sided blindness secondary to diabetic retinopathy 5. ?Arrhythmia, NSVT- resolved - Cardiology on board and appreciate consultation - noted on Coumadin on med rec but INR normal at time of presentation. Will need to touch base with fam vs patient when she recovers on why she takes Coumadin 6. DM - continue Lantus. better controlled 7. ESRD on HD - Nephrology, Dr. Reddy, on board and appreciate consultation. T/T/S as outpatient but MWF while inpatient 8. h/o CVA - continue current medications 9. HTN - continue on BB and PRN 10. Anemia - stable - secondary to renal disease - continue on Epogen - H/H remains stable and no need for transfusions at this time. Will need to keep a close eye on hgb given on blood thinners 11. Disposition - Trach placement today - Santos evaluation pending for continued care >35 minutes of critical care time spent with patient Result Diagram: 12/19/18 0400 12/19/18 0400 Results 24hrs Laboratory Tests Test 12/18/18 12:36 12/18/18 16:36 12/18/18 19:02 12/18/18 20:38 Bedside Glucose 101 116 141 Activated > 180.0 *H Partial Thromboplast Time Test 12/18/18 22:02 12/19/18 01:11 12/19/18 04:00 12/19/18 04:55 Activated 62.1 H 101.9 *H Partial Thromboplast Time Bedside Glucose 122 104 White Blood Count 8.6 Red Blood Count 2.78 L Hemoglobin 8.2 L Hematocrit 27.0 L Mean Corpuscular 97.1 Volume Mean Corpuscular 29.5 Hemoglobin Mean Corpuscular 30.4 L Hemoglobin Concent Red Cell 14.9 H Distribution Width Platelet Count 194 Mean Platelet Volume 9.8 Immature 1.300 H Granulocytes % Neutrophils % 77.9 H Lymphocytes % 9.2 L Monocytes % 9.8 Eosinophils % 1.6 Basophils % 0.2 Nucleated Red Blood 0.0 Cells % Immature 0.110 H Granulocytes # Neutrophils # 6.7 Lymphocytes # 0.8 Monocytes # 0.8 Eosinophils # 0.1 Basophils # 0.0 Nucleated Red Blood 0.0 Cells # Sodium Level 140 Potassium Level 3.9 Chloride Level 103 Carbon Dioxide Level 24 Anion Gap 13 Blood Urea Nitrogen 67 H Creatinine 5.15 H Glucose Level 110 # Calcium Level 9.6 Phosphorus Level 3.0 Magnesium Level 2.3 Albumin 3.3 Test 12/19/18 08:55 Bedside Glucose 95 Subjective 24 Hr Interval Summary Free Text/Dictation Patient remains stable with no acute changes in condition. Still nonresponsive off sedation and on vent support. Exam/Review of Systems Exam Vitals Vital Signs Date Temp Pulse Resp B/P (MAP) Pulse Ox O2 O2 Flow FiO2 Time Delivery Rate 12/19/18 66 18 104/47 100 Mechanical 11:00 (66) Ventilator 12/19/18 30 08:00 12/19/18 99.4 07:26 Intake and Output 12/18/18 12/18/18 12/19/18 1515:00 23:00 07:00 IntakeIntake Total 678 ml 708 ml 504 ml BalanceBalance 678 ml 708 ml 504 ml Exam General: Patient remains intubated and nonresponsive. no acute distress Eyes: EOMI, left pupil is alfredo out chronically. right pupil sluggish to react Neck: Supple, nontender, midline. multiple scars present Lungs: Coarse to auscultation bilaterally. no wheezing Cardiovascular: S1, S2, regular rate and rhythm, no obvious murmurs Gastrointestinal: soft, non-tender to palpation, protuberant, bowel sounds heard. Ext: swelling UE b/l R>L. no edema lower extremities Skin: No new skin lesions Results Results 24hrs Laboratory Tests Test 12/18/18 12:36 12/18/18 16:36 12/18/18 19:02 12/18/18 20:38 Bedside Glucose 101 116 141 Activated > 180.0 *H Partial Thromboplast Time Test 12/18/18 22:02 12/19/18 01:11 12/19/18 04:00 12/19/18 04:55 Activated 62.1 H 101.9 *H Partial Thromboplast Time Bedside Glucose 122 104 White Blood Count 8.6 Red Blood Count 2.78 L Hemoglobin 8.2 L Hematocrit 27.0 L Mean Corpuscular 97.1 Volume Mean Corpuscular 29.5 Hemoglobin Mean Corpuscular 30.4 L Hemoglobin Concent Red Cell 14.9 H Distribution Width Platelet Count 194 Mean Platelet Volume 9.8 Immature 1.300 H Granulocytes % Neutrophils % 77.9 H Lymphocytes % 9.2 L Monocytes % 9.8 Eosinophils % 1.6 Basophils % 0.2 Nucleated Red Blood 0.0 Cells % Immature 0.110 H Granulocytes # Neutrophils # 6.7 Lymphocytes # 0.8 Monocytes # 0.8 Eosinophils # 0.1 Basophils # 0.0 Nucleated Red Blood 0.0 Cells # Sodium Level 140 Potassium Level 3.9 Chloride Level 103 Carbon Dioxide Level 24 Anion Gap 13 Blood Urea Nitrogen 67 H Creatinine 5.15 H Glucose Level 110 # Calcium Level 9.6 Phosphorus Level 3.0 Magnesium Level 2.3 Albumin 3.3 Test 12/19/18 08:55 Bedside Glucose 95 Medications Medication Current Medications Ondansetron HCl (Zofran Inj) 4 mg Q6H PRN IV NAUSEA AND/OR VOMITING; Start 12/06/18 at 09:30 Albuterol (Proventil 0.083% (Neb)) 2.5 mg Q2H RESP THERAPY PRN NEB SHORTNESS OF BREATH; Start 12/06/18 at 09:30 Docusate Sodium (Colace) 100 mg Q12H PRN PO CONSTIPATION; Start 12/06/18 at 09:30 Magnesium Hydroxide (Milk Of Mag) 30 ml DAILY PRN PO CONSTIPATION; Start 12/06/18 at 09:30 Aspirin (Aspirin) 81 mg DAILY PO Last administered on 12/19/18 09:02; Admin Dose 81 MG; Start 12/06/18 at 10:30 Brimonidine Tartrate (Alphagan 0.2%) 1 drop DAILY BOTH EYES Last administered on 12/19/18 08:56; Admin Dose 1 DROP; Start 12/06/18 at 11:00 Calcium Acetate (Phoslo) 667 mg WITH MEALS PO Last administered on 12/18/18 17:03; Admin Dose 667 MG; Start 12/06/18 at 12:00 Docusate Sodium (Colace) 200 mg DAILY PO ; Start 12/06/18 at 10:30; Status Hold Lactulose (Enulose) 20 gm BID PO Last administered on 12/19/18 09:02; Admin Dose 20 GM; Start 12/06/18 at 21:00 Montelukast Sodium (Singulair) 10 mg HS PO ; Start 12/06/18 at 21:00; Status Hold Multivit/Ca Carb/ B Cmplx/FA/Prenat (Mariaelena-Rosas) 1 tab DAILY PO Last administered on 12/19/18 09:02; Admin Dose 1 TAB; Start 12/06/18 at 10:30 Norepinephrine 250 ml @ 1.875 mls/ hr TITRATE IV Last administered on 12/07/18 13:25; Admin Dose 56.25 MLS/HR; Start 12/06/18 at 13:00 Atropine Sulfate (Atropine (Syringe)) 1 mg PRN PRN IV prn Last administered on 12/06/18 16:49; Admin Dose 1 MG; Start 12/06/18 at 16:00 Midazolam HCl 50 ml @ 1 mls/hr TITRATE IV Last administered on 12/09/18 05:09; Admin Dose 4 MLS/HR; Start 12/06/18 at 16:30 Vancomycin HCl (Vanco Iv Per Pharmacy) VANCOMYCIN PER PHARMACY PER PROTOCOL XX ; Start 12/06/18 at 17:30 Cefepime HCl 50 ml @ 100 mls/hr Q24H IVPB Last administered on 12/18/18 20:34; Admin Dose 100 MLS/HR; Start 12/06/18 at 21:00 Levetiracetam 100 ml @ 400 mls/hr Q12 IVPB Last administered on 12/19/18 09:02; Admin Dose 400 MLS/HR; Start 12/06/18 at 21:00 Dopamine HCl/ Dextrose 250 ml @ 7.613 mls/ hr TITRATE IV Last administered on 12/09/18at 03:03; Admin Dose 11.419 MLS/HR; Start 12/06/18 at 17:30 Acetaminophen (Tylenol Supp) 650 mg Q4H PRN [place] TEMP > 37C; Start 12/06/18 at 18:30 Meperidine HCl (Demerol) 12.5 mg Q4H PRN IV POST OPERATIVE SHIVERING; Start 12/06/18 at 18:30 Meperidine HCl (Demerol) 25 mg Q4H PRN IV POST OPERATIVE SHIVERING; Start 12/06/18 at 18:30 Eye Lubricant (Akwa Oint) 1 applic Q6 BOTH EYES Last administered on 12/19/18 05:30; Admin Dose 1 APPLIC; Start 12/07/18 at 00:00 Eye Lubricant (Artificial Tears Oph) 2 drop Q6 BOTH EYES Last administered on 12/19/18at 11:17; Admin Dose 2 DROP; Start 12/07/18 at 00:00 Magnesium Sulfate 50 ml @ 25 mls/hr PRN PRN IVPB IV PROTOCOL; Start 12/06/18 at 20:30 Potassium Chloride 50 ml @ 25 mls/hr PRN PRN IVPB IV PROTOCOL Last administered on 12/07/18at 08:33; Admin Dose 25 MLS/HR; Start 12/06/18 at 20:30 Heparin Sodium (Porcine) (Heparin (1000 Units/ml)) 4,000 unit AFTER DIALYSIS CATHETER ; Start 12/06/18 at 22:00 Albumin Human 100 ml @ 100 mls/hr WITH DIALYSIS PRN IV SBP <90 DURING DIALYSIS Last administered on 12/17/18at 11:47; Admin Dose 100 MLS/HR; Start 12/06/18 at 22:00 Sodium Chloride (NS) -To prime the dialy... DIRECTED FOR HD PRN IV HD; Start 12/06/18 at 22:00 Phenytoin 300 mg/ Sodium Chloride 56 ml @ 112 mls/hr 2100 IV Last administered on 12/18/18at 22:31; Admin Dose 112 MLS/HR; Start 12/07/18 at 21:00 Fentanyl 100 ml @ 2.5 mls/hr TITRATE IV Last administered on 12/08/18at 06:27; Admin Dose 2.5 MLS/HR; Start 12/08/18 at 06:30 Miscellaneous Information 1 ea NOTE XX ; Start 12/08/18 at 11:30 Glucose (Glutose) 15 gm Q15M PRN PO DECREASED GLUCOSE; Start 12/08/18 at 11:30 Glucose (Glutose) 22.5 gm Q15M PRN PO DECREASED GLUCOSE; Start 12/08/18 at 11:30 Dextrose (D50w Syringe) 25 ml Q15M PRN IV DECREASED GLUCOSE; Start 12/08/18 at 11:30 Dextrose (D50w Syringe) 50 ml Q15M PRN IV DECREASED GLUCOSE; Start 12/08/18 at 11:30 Glucagon (Glucagen) 1 mg Q15M PRN IM DECREASED GLUCOSE; Start 12/08/18 at 11:30 Glucose (Glutose) 15 gm Q15M PRN BUCCAL DECREASED GLUCOSE; Start 12/08/18 at 11:30 Collagenase (Santyl) 1 applic DAILY TOP Last administered on 12/19/18at 08:56; Admin Dose 1 APPLIC; Start 12/10/18 at 09:00 Diagnostic Test (Pha) (Accu-Chek) 1 ea Q4 XX Last administered on 12/19/18at 04:56; Admin Dose 1 EA; Start 12/11/18 at 13:00 Acetaminophen (Tylenol Liquid) 650 mg Q6H PRN GTB MILD PAIN(1-3)OR ELEVATED TEMP Last administered on 12/16/18at 00:16; Admin Dose 650 MG; Start 12/11/18 at 20:30 Fluconazole/ Sodium Chloride 50 ml @ 50 mls/hr Q24H IVPB Last administered on 12/18/18at 14:36; Admin Dose 50 MLS/HR; Start 12/12/18 at 14:00 Metronidazole 100 ml @ 100 mls/hr Q6 IVPB Last administered on 12/19/18at 11:17; Admin Dose 100 MLS/HR; Start 12/13/18 at 12:00 Lorazepam (Ativan) 1 mg Q10MIN PRN IV SEIZURES Last administered on 12/14/18at 17:16; Admin Dose 1 MG; Start 12/13/18 at 13:30 Epoetin Man-epbx (Retacrit) 6,000 unit TuThSa@1700 SC Last administered on 12/18/18at 17:05; Admin Dose 6,000 UNIT; Start 12/16/18 at 17:00 Vancomycin HCl 250 ml @ 125 mls/hr Q96H IVPB Last administered on 12/15/18at 17:52; Admin Dose 125 MLS/HR; Start 12/15/18 at 18:00 Insulin Glargine (Lantus) 35 units DAILY@0800 SC Last administered on 12/18/18at 08:50; Admin Dose 35 UNITS; Start 12/17/18 at 08:00 Miscellaneous Information 1 ea NOTE XX ; Start 12/16/18 at 10:00 Glucose (Glutose) 15 gm Q15M PRN PO DECREASED GLUCOSE; Start 12/16/18 at 10:00 Glucose (Glutose) 22.5 gm Q15M PRN PO DECREASED GLUCOSE; Start 12/16/18 at 10:00 Dextrose (D50w Syringe) 25 ml Q15M PRN IV DECREASED GLUCOSE; Start 12/16/18 at 10:00 Dextrose (D50w Syringe) 50 ml Q15M PRN IV DECREASED GLUCOSE; Start 12/16/18 at 10:00 Glucagon (Glucagen) 1 mg Q15M PRN IM DECREASED GLUCOSE; Start 12/16/18 at 10:00 Glucose (Glutose) 15 gm Q15M PRN BUCCAL DECREASED GLUCOSE; Start 12/16/18 at 10:00 Hydralazine HCl (Apresoline) 10 mg Q4H PRN IV bp Last administered on 12/17/18at 07:03; Admin Dose 10 MG; Start 12/17/18 at 07:00 Famotidine (Pepcid) 20 mg Q48H PO Last administered on 12/19/18at 09:02; Admin Dose 20 MG; Start 12/19/18 at 09:00 Heparin Sodium (Porcine) (Heparin (1000 Units/ml)) 8,100 unit PER PROTOCOL PRN IV aPTT<47; Start 12/18/18 at 09:30 Heparin Sodium (Porcine) (Heparin (1000 Units/ml)) 4,100 unit PER PROTOCOL PRN IV aPTT<47-57; Start 12/18/18 at 09:30 Heparin Sodium (Porcine) 250 ml @ 18 mls/hr PER PROTOCOL IV Last administered on 12/19/18at 04:02; Admin Dose 14 MLS/HR; Start 12/18/18 at 11:00 Phenytoin 200 mg/ Sodium Chloride 54 ml @ 112 mls/hr AM IV Last administered on 12/19/18at 10:22; Admin Dose 112 MLS/HR; Start 12/19/18 at 09:00 Phenytoin 200 mg/ Sodium Chloride 54 ml @ 112 mls/hr PC LUNCH IV ; Start 12/19/18 at 12:30 Carvedilol (Coreg) 3.125 mg BID NGT ; Start 12/19/18 at 21:00 Dextrose/Sodium Chloride 1,000 ml @ 75 mls/hr [id number] IV Last administered on 12/19/18at 11:11; Admin Dose 75 MLS/HR; Start 12/19/18 at 11:00 Insulin Aspart (Novolog Insulin Pen) (Adult SC Insulin - Moder... Q4 SC ; Start 12/19/18 at 13:00 BEAN BEST MD Dec 19, 2018 12:29
[2018-12-19] MEDS: Insulin NOVOLOG SS MODERATE Algorithm(NPO/TPN/ENTERAL FEEDS) SC SCH ×3 (12:33→21:23)
--- NOTE | 2018-12-19 12:48 | CONS ---
Assessment/Plan Assessment/Plan Hospital Course (Demo Recall) Patient remains unchanged no fevers overnight. WBC 8.6 platelets 194 neutrophils 77.9. Chest x-ray this morning revealed pulmonary vascular congestion with small bilateral pleural effusions with improved Lung aeration Microbiology: Blood cultures on admission grew oxacillin sensitive staph aureus, repeat blood cultures negative urine culture negative sputum culture grew Rosa albicans. Femoral line tip culture grew Corynebacterium, coag negative staph and alpha hemolytic strep species Extremity venous study revealed a DVT involving the right proximal femoral vein Indwelling: Endotracheal tube, PEG, right upper extremity AV fistula, right femoral triple-lumen catheter 12/14/18 Antimicrobials: Vancomycin, Flagyl, fluconazole, cefepime Physical examination: Obese chronically ill-appearing middle-aged woman who is noncommunicative intubated in no distress. Head atraumatic normocephalic neck is obese chest rise symmetrical breath sounds diminished bases heart S1-S2 abdomen obese soft bowel sounds hypoactive extremities with trace edema Assessment: 1. Status post infected femoral line discontinuation==> resolved fevers 1. Status post septic shock 2. Bilateral pneumonia, resolving 3. Status post oxacillin sensitive staph aureus bacteremia 4. Status post cardiac arrest with hypothermia protocol 5. Diabetes 6. Seizure disorder 7. End-stage renal disease, hemodialysis dependent 8. Cardiomyopathy with ejection fraction of 35% 9. Right lower extremity DVT Plan: Remains stable, completing antibiotics, plan for tracheostomy today Consultation Date/Type/Reason Admit Date/Time Dec 06, 2018 at 12:45 Initial Consult Date 12/06/18 Type of Consult id Requesting Provider: BOZENA PARK Date/Time of Note DATE: 12/19/18 TIME: 12:47 Exam/Review of Systems Exam Vitals Vital Signs Date Temp Pulse Resp B/P (MAP) Pulse Ox O2 O2 Flow FiO2 Time Delivery Rate 12/19/18 66 18 104/47 100 Mechanical 11:00 (66) Ventilator 12/19/18 30 08:00 12/19/18 99.4 07:26 Intake and Output 12/18/18 12/18/18 12/19/18 1515:00 23:00 07:00 IntakeIntake Total 678 ml 708 ml 504 ml BalanceBalance 678 ml 708 ml 504 ml Results Result Diagram: 12/19/18 0400 12/19/18 0400 Results 24hrs Laboratory Tests Test 12/18/18 16:36 12/18/18 19:02 12/18/18 20:38 12/18/18 22:02 Bedside Glucose 116 141 Activated > 180.0 *H 62.1 H Partial Thromboplast Time Test 12/19/18 01:11 12/19/18 04:00 12/19/18 04:55 12/19/18 08:55 Bedside Glucose 122 104 95 White Blood Count 8.6 Red Blood Count 2.78 L Hemoglobin 8.2 L Hematocrit 27.0 L Mean Corpuscular 97.1 Volume Mean Corpuscular 29.5 Hemoglobin Mean Corpuscular 30.4 L Hemoglobin Concent Red Cell 14.9 H Distribution Width Platelet Count 194 Mean Platelet Volume 9.8 Immature 1.300 H Granulocytes % Neutrophils % 77.9 H Lymphocytes % 9.2 L Monocytes % 9.8 Eosinophils % 1.6 Basophils % 0.2 Nucleated Red Blood 0.0 Cells % Immature 0.110 H Granulocytes # Neutrophils # 6.7 Lymphocytes # 0.8 Monocytes # 0.8 Eosinophils # 0.1 Basophils # 0.0 Nucleated Red Blood 0.0 Cells # Activated 101.9 *H Partial Thromboplast Time Sodium Level 140 Potassium Level 3.9 Chloride Level 103 Carbon Dioxide Level 24 Anion Gap 13 Blood Urea Nitrogen 67 H Creatinine 5.15 H Glucose Level 110 # Calcium Level 9.6 Phosphorus Level 3.0 Magnesium Level 2.3 Albumin 3.3 Test 12/19/18 12:32 Bedside Glucose 109 Medications Medication Current Medications Ondansetron HCl (Zofran Inj) 4 mg Q6H PRN IV NAUSEA AND/OR VOMITING; Start 12/06/18 at 09:30 Albuterol (Proventil 0.083% (Neb)) 2.5 mg Q2H RESP THERAPY PRN NEB SHORTNESS OF BREATH; Start 12/06/18 at 09:30 Docusate Sodium (Colace) 100 mg Q12H PRN PO CONSTIPATION; Start 12/06/18 at 09:30 Magnesium Hydroxide (Milk Of Mag) 30 ml DAILY PRN PO CONSTIPATION; Start 12/06/18 at 09:30 Aspirin (Aspirin) 81 mg DAILY PO Last administered on 12/19/18at 09:02; Admin Dose 81 MG; Start 12/06/18 at 10:30 Brimonidine Tartrate (Alphagan 0.2%) 1 drop DAILY BOTH EYES Last administered on 12/19/18 08:56; Admin Dose 1 DROP; Start 12/06/18 at 11:00 Calcium Acetate (Phoslo) 667 mg WITH MEALS PO Last administered on 12/18/18 17:03; Admin Dose 667 MG; Start 12/06/18 at 12:00 Docusate Sodium (Colace) 200 mg DAILY PO ; Start 12/06/18 at 10:30; Status Hold Lactulose (Enulose) 20 gm BID PO Last administered on 12/19/18 09:02; Admin Dose 20 GM; Start 12/06/18 at 21:00 Montelukast Sodium (Singulair) 10 mg HS PO ; Start 12/06/18 at 21:00; Status Hold Multivit/Ca Carb/ B Cmplx/FA/Prenat (Mariaelena-Rosas) 1 tab DAILY PO Last administered on 12/19/18 09:02; Admin Dose 1 TAB; Start 12/06/18 at 10:30 Norepinephrine 250 ml @ 1.875 mls/ hr TITRATE IV Last administered on 12/07/18 13:25; Admin Dose 56.25 MLS/HR; Start 12/06/18 at 13:00 Atropine Sulfate (Atropine (Syringe)) 1 mg PRN PRN IV prn Last administered on 12/06/18 16:49; Admin Dose 1 MG; Start 12/06/18 at 16:00 Midazolam HCl 50 ml @ 1 mls/hr TITRATE IV Last administered on 12/09/18 05:09; Admin Dose 4 MLS/HR; Start 12/06/18 at 16:30 Vancomycin HCl (Vanco Iv Per Pharmacy) VANCOMYCIN PER PHARMACY PER PROTOCOL XX ; Start 12/06/18 at 17:30 Cefepime HCl 50 ml @ 100 mls/hr Q24H IVPB Last administered on 12/18/18 20:34; Admin Dose 100 MLS/HR; Start 12/06/18 at 21:00 Levetiracetam 100 ml @ 400 mls/hr Q12 IVPB Last administered on 12/19/18 09:02; Admin Dose 400 MLS/HR; Start 12/06/18 at 21:00 Dopamine HCl/ Dextrose 250 ml @ 7.613 mls/ hr TITRATE IV Last administered on 12/09/18 03:03; Admin Dose 11.419 MLS/HR; Start 12/06/18 at 17:30 Acetaminophen (Tylenol Supp) 650 mg Q4H PRN IN TEMP > 37C; Start 12/06/18 at 18:30 Meperidine HCl (Demerol) 12.5 mg Q4H PRN IV POST OPERATIVE SHIVERING; Start 12/06/18 at 18:30 Meperidine HCl (Demerol) 25 mg Q4H PRN IV POST OPERATIVE SHIVERING; Start 12/06/18 at 18:30 Eye Lubricant (Akwa Oint) 1 applic Q6 BOTH EYES Last administered on 12/19/18 12:32; Admin Dose 1 APPLIC; Start 12/07/18 at 00:00 Eye Lubricant (Artificial Tears Oph) 2 drop Q6 BOTH EYES Last administered on 12/19/18 11:17; Admin Dose 2 DROP; Start 12/07/18 at 00:00 Magnesium Sulfate 50 ml @ 25 mls/hr PRN PRN IVPB IV PROTOCOL; Start 12/06/18 at 20:30 Potassium Chloride 50 ml @ 25 mls/hr PRN PRN IVPB IV PROTOCOL Last administered on 12/07/18 08:33; Admin Dose 25 MLS/HR; Start 12/06/18 at 20:30 Heparin Sodium (Porcine) (Heparin (1000 Units/ml)) 4,000 unit AFTER DIALYSIS CATHETER ; Start 12/06/18 at 22:00 Albumin Human 100 ml @ 100 mls/hr WITH DIALYSIS PRN IV SBP <90 DURING DIALYSIS Last administered on 12/17/18at 11:47; Admin Dose 100 MLS/HR; Start 12/06/18 at 22:00 Sodium Chloride (NS) -To prime the dialy... DIRECTED FOR HD PRN IV HD; Start 12/06/18 at 22:00 Phenytoin 300 mg/ Sodium Chloride 56 ml @ 112 mls/hr 2100 IV Last administered on 12/18/18at 22:31; Admin Dose 112 MLS/HR; Start 12/07/18 at 21:00 Fentanyl 100 ml @ 2.5 mls/hr TITRATE IV Last administered on 12/08/18at 06:27; Admin Dose 2.5 MLS/HR; Start 12/08/18 at 06:30 Miscellaneous Information 1 ea NOTE XX ; Start 12/08/18 at 11:30 Glucose (Glutose) 15 gm Q15M PRN PO DECREASED GLUCOSE; Start 12/08/18 at 11:30 Glucose (Glutose) 22.5 gm Q15M PRN PO DECREASED GLUCOSE; Start 12/08/18 at 11:30 Dextrose (D50w Syringe) 25 ml Q15M PRN IV DECREASED GLUCOSE; Start 12/08/18 at 11:30 Dextrose (D50w Syringe) 50 ml Q15M PRN IV DECREASED GLUCOSE; Start 12/08/18 at 11:30 Glucagon (Glucagen) 1 mg Q15M PRN IM DECREASED GLUCOSE; Start 12/08/18 at 11:30 Glucose (Glutose) 15 gm Q15M PRN BUCCAL DECREASED GLUCOSE; Start 12/08/18 at 11:30 Collagenase (Santyl) 1 applic DAILY TOP Last administered on 12/19/18at 08:56; Admin Dose 1 APPLIC; Start 12/10/18 at 09:00 Diagnostic Test (Pha) (Accu-Chek) 1 ea Q4 XX Last administered on 12/19/18at 04:56; Admin Dose 1 EA; Start 12/11/18 at 13:00 Acetaminophen (Tylenol Liquid) 650 mg Q6H PRN GTB MILD PAIN(1-3)OR ELEVATED TEMP Last administered on 12/16/18at 00:16; Admin Dose 650 MG; Start 12/11/18 at 20:30 Fluconazole/ Sodium Chloride 50 ml @ 50 mls/hr Q24H IVPB Last administered on 12/18/18at 14:36; Admin Dose 50 MLS/HR; Start 12/12/18 at 14:00 Metronidazole 100 ml @ 100 mls/hr Q6 IVPB Last administered on 12/19/18 11:17; Admin Dose 100 MLS/HR; Start 12/13/18 at 12:00 Lorazepam (Ativan) 1 mg Q10MIN PRN IV SEIZURES Last administered on 12/14/18at 17:16; Admin Dose 1 MG; Start 12/13/18 at 13:30 Epoetin Man-epbx (Retacrit) 6,000 unit TuThSa@1700 SC Last administered on 12/18/18at 17:05; Admin Dose 6,000 UNIT; Start 12/16/18 at 17:00 Vancomycin HCl 250 ml @ 125 mls/hr Q96H IVPB Last administered on 12/15/18at 17:52; Admin Dose 125 MLS/HR; Start 12/15/18 at 18:00 Insulin Glargine (Lantus) 35 units DAILY@0800 SC Last administered on 12/18/18at 08:50; Admin Dose 35 UNITS; Start 12/17/18 at 08:00 Miscellaneous Information 1 ea NOTE XX ; Start 12/16/18 at 10:00 Glucose (Glutose) 15 gm Q15M PRN PO DECREASED GLUCOSE; Start 12/16/18 at 10:00 Glucose (Glutose) 22.5 gm Q15M PRN PO DECREASED GLUCOSE; Start 12/16/18 at 10:00 Dextrose (D50w Syringe) 25 ml Q15M PRN IV DECREASED GLUCOSE; Start 12/16/18 at 10:00 Dextrose (D50w Syringe) 50 ml Q15M PRN IV DECREASED GLUCOSE; Start 12/16/18 at 10:00 Glucagon (Glucagen) 1 mg Q15M PRN IM DECREASED GLUCOSE; Start 12/16/18 at 10:00 Glucose (Glutose) 15 gm Q15M PRN BUCCAL DECREASED GLUCOSE; Start 12/16/18 at 10:00 Hydralazine HCl (Apresoline) 10 mg Q4H PRN IV bp Last administered on 12/17/18at 07:03; Admin Dose 10 MG; Start 12/17/18 at 07:00 Famotidine (Pepcid) 20 mg Q48H PO Last administered on 12/19/18at 09:02; Admin Dose 20 MG; Start 12/19/18 at 09:00 Heparin Sodium (Porcine) (Heparin (1000 Units/ml)) 8,100 unit PER PROTOCOL PRN IV aPTT<47; Start 12/18/18 at 09:30 Heparin Sodium (Porcine) (Heparin (1000 Units/ml)) 4,100 unit PER PROTOCOL PRN IV aPTT<47-57; Start 12/18/18 at 09:30 Heparin Sodium (Porcine) 250 ml @ 18 mls/hr PER PROTOCOL IV Last administered on 12/19/18at 04:02; Admin Dose 14 MLS/HR; Start 12/18/18 at 11:00 Phenytoin 200 mg/ Sodium Chloride 54 ml @ 112 mls/hr AM IV Last administered on 12/19/18at 10:22; Admin Dose 112 MLS/HR; Start 12/19/18 at 09:00 Phenytoin 200 mg/ Sodium Chloride 54 ml @ 112 mls/hr PC LUNCH IV Last administered on 12/19/18at 12:32; Admin Dose 112 MLS/HR; Start 12/19/18 at 12:30 Carvedilol (Coreg) 3.125 mg BID NGT ; Start 12/19/18 at 21:00 Dextrose/Sodium Chloride 1,000 ml @ 75 mls/hr [id number] IV Last administered on 12/19/18at 11:11; Admin Dose 75 MLS/HR; Start 12/19/18 at 11:00 Insulin Aspart (Novolog Insulin Pen) (Adult SC Insulin - Moder... Q4 SC ; Start 12/19/18 at 13:00 LEWIS PERALES NP Dec 19, 2018 12:48
[2018-12-19] MEDS: FLUCONAZOLE 100 MG/50 ML (PMX) 50 ML IVPB SCH (14:43)
[2018-12-19] MEDS ORDERED: FENTAnyl 50 MCG/ML VIAL ONE (15:00)
[2018-12-19] MEDS ORDERED: ROCURONIUM 50 MG INJ ONE (15:00)
[2018-12-19] MEDS ORDERED: LIDOCAINE 2% (SDV) 5 ML INJ ONE (15:00)
[2018-12-19] MEDS ORDERED: ETOMIDATE 20 MG INJ ONE (15:00)
[2018-12-19] MEDS ORDERED: PROPOFOL 20 ML ONE (15:00)
--- NOTE | 2018-12-19 15:08 | PREAC ---
Date/Time of Note Date/Time of Note DATE: 12/19/18 TIME: 15:06 Anesthesia Eval and Record Evaluation Time Pre-Procedure Interview DATE: 12/19/18 TIME: 15:06 Age 47 Sex female NPO: 8 hrs Preoperative diagnosis respiratory failure Planned procedure Tracheostomy Past Medical History Past Medical History: Includes Cardio: HTN, Dyslipidemia Endo: Diabetes GI: GERD, Morbid obesity Surgery & Anesthesia Issues No known issue Meds Anticoagulation: Yes Beta Charles within 24 hr: Yes Reported Medications Insulin Lispro (Humalog) 100 U/Ml Vial, SQ SSI TID AND HS PRN 09/12/11 Multivit/Ca Carb/B Cmplx/Fa* (Mariaelena-Rosas*) 1 Tab Tab, 1 TAB PO DAILY 09/12/11 [Prostat 64] No Conflict Check, 30 ML PO TID 09/12/11 Esomeprazole Mag Trihydrate (Nexium) 40 Mg Capsule.dr, 40 MG PO DAILY 09/12/11 Metoprolol (Lopressor) 100 Mg Tablet, 100 MG PO BID 09/12/11 Benazepril Hcl* (Lotensin*) 40 Mg Tablet, 40 MG PO DAILY 09/12/11 [Lactulose] No Conflict Check, 30 ML PO DAILY PRN 09/12/11 Lactulose (Lactulose) 10 G/15 Ml Solution, 20 G PO BID 09/12/11 Glipizide* (Glucotrol XL*) 2.5 Mg Tabsr, 2.5 MG PO DAILY 09/12/11 Phenytoin* Sodium Extended (Dilantin*) 100 Mg Capsule, 300 MG PO HS 09/12/11 Phenytoin* Sodium Extended (Dilantin*) 100 Mg Capsule, 200 MG PO DAILY @0900 09/12/11 Phenytoin* Sodium Extended (Dilantin*) 100 Mg Capsule, 200 MG PO DAILY @1300 09/12/11 Phenytoin* Sodium Extended (Dilantin*) 100 Mg Capsule, 200 MG PO DAILY 09/12/11 Docusate Sodium* (Colace*) 100 Mg Capsule, 200 MG PO DAILY 09/12/11 Warfarin Sodium* (Coumadin*) 7.5 Mg Tablet, 7.5 MG PO Q OTHER DAY 06/01/11 Montelukast Sodium* (Singulair*) 10 Mg Tablet, 10 MG PO HS 06/01/11 Folic Acid/Vitamin B Comp W-C* (Nephro-Rosas Tablet*) 0.8 Mg Tablet, 0.8 MG PO DAILY 06/01/11 Aspirin (Aspirin) 81 Mg Tablet, 81 MG PO DAILY 06/01/11 Levetiracetam* (Keppra*) 500 Mg Tablet, 500 MG PO BID 06/01/11 Clonidine Hcl* (Clonidine Hcl*) 0.2 Mg Tablet 01/09/11 Metoclopramide Hcl* (Metoclopramide Hcl*) 10 Mg Tablet 01/09/11 Brimonidine Tartrate* (Brimonidine Tartrate*) 15 Ml Drops 01/09/11 Prednisolone Acetate (Pred Forte) 5 Ml Drops.susp 01/09/11 Nifedipine (Nifedical XL*) 30 Mg/Bottle Tab.osm.24 01/09/11 Calcium Acetate* (Phoslo*) 667 Mg Tablet 10/24/09 Current Medications Ondansetron HCl (Zofran Inj) 4 mg Q6H PRN IV NAUSEA AND/OR VOMITING; Start 12/06/18 at 09:30 Albuterol (Proventil 0.083% (Neb)) 2.5 mg Q2H RESP THERAPY PRN NEB SHORTNESS OF BREATH; Start 12/06/18 at 09:30 Docusate Sodium (Colace) 100 mg Q12H PRN PO CONSTIPATION; Start 12/06/18 at 09:30 Magnesium Hydroxide (Milk Of Mag) 30 ml DAILY PRN PO CONSTIPATION; Start 12/06/18 at 09:30 Aspirin (Aspirin) 81 mg DAILY PO Last administered on 12/19/18at 09:02; Admin Dose 81 MG; Start 12/06/18 at 10:30 Brimonidine Tartrate (Alphagan 0.2%) 1 drop DAILY BOTH EYES Last administered on 12/19/18at 08:56; Admin Dose 1 DROP; Start 12/06/18 at 11:00 Calcium Acetate (Phoslo) 667 mg WITH MEALS PO Last administered on 12/18/18at 17:03; Admin Dose 667 MG; Start 12/06/18 at 12:00 Docusate Sodium (Colace) 200 mg DAILY PO ; Start 12/06/18 at 10:30; Status Hold Lactulose (Enulose) 20 gm BID PO Last administered on 12/19/18at 09:02; Admin Dose 20 GM; Start 12/06/18 at 21:00 Montelukast Sodium (Singulair) 10 mg HS PO ; Start 12/06/18 at 21:00; Status Hold Multivit/Ca Carb/ B Cmplx/FA/Prenat (Mariaelena-Rosas) 1 tab DAILY PO Last administered on 12/19/18 09:02; Admin Dose 1 TAB; Start 12/06/18 at 10:30 Norepinephrine 250 ml @ 1.875 mls/ hr TITRATE IV Last administered on 12/07/18 13:25; Admin Dose 56.25 MLS/HR; Start 12/06/18 at 13:00 Atropine Sulfate (Atropine (Syringe)) 1 mg PRN PRN IV prn Last administered on 12/06/18 16:49; Admin Dose 1 MG; Start 12/06/18 at 16:00 Midazolam HCl 50 ml @ 1 mls/hr TITRATE IV Last administered on 12/09/18 05:09; Admin Dose 4 MLS/HR; Start 12/06/18 at 16:30 Vancomycin HCl (Vanco Iv Per Pharmacy) VANCOMYCIN PER PHARMACY PER PROTOCOL XX ; Start 12/06/18 at 17:30 Cefepime HCl 50 ml @ 100 mls/hr Q24H IVPB Last administered on 12/18/18 20:34; Admin Dose 100 MLS/HR; Start 12/06/18 at 21:00 Levetiracetam 100 ml @ 400 mls/hr Q12 IVPB Last administered on 12/19/18 09:02; Admin Dose 400 MLS/HR; Start 12/06/18 at 21:00 Dopamine HCl/ Dextrose 250 ml @ 7.613 mls/ hr TITRATE IV Last administered on 12/09/18 03:03; Admin Dose 11.419 MLS/HR; Start 12/06/18 at 17:30 Acetaminophen (Tylenol Supp) 650 mg Q4H PRN DC TEMP > 37C; Start 12/06/18 at 18: 30 Meperidine HCl (Demerol) 12.5 mg Q4H PRN IV POST OPERATIVE SHIVERING; Start 12/06/18 at 18:30 Meperidine HCl (Demerol) 25 mg Q4H PRN IV POST OPERATIVE SHIVERING; Start 12/06/18 at 18:30 Eye Lubricant (Akwa Oint) 1 applic Q6 BOTH EYES Last administered on 12/19/18at 12:32; Admin Dose 1 APPLIC; Start 12/07/18 at 00:00 Eye Lubricant (Artificial Tears Oph) 2 drop Q6 BOTH EYES Last administered on at 11:17; Admin Dose 2 DROP; Start 12/07/18 at 00:00 Magnesium Sulfate 50 ml @ 25 mls/hr PRN PRN IVPB IV PROTOCOL; Start 12/06/18 at 20:30 Potassium Chloride 50 ml @ 25 mls/hr PRN PRN IVPB IV PROTOCOL Last administered on 12/07/18at 08:33; Admin Dose 25 MLS/HR; Start 12/06/18 at 20:30 Heparin Sodium (Porcine) (Heparin (1000 Units/ml)) 4,000 unit AFTER DIALYSIS CATHETER ; Start 12/06/18 at 22:00 Albumin Human 100 ml @ 100 mls/hr WITH DIALYSIS PRN IV SBP <90 DURING DIALYSIS Last administered on 12/17/18at 11:47; Admin Dose 100 MLS/HR; Start 12/06/18 at 22:00 Sodium Chloride (NS) -To prime the dialy... DIRECTED FOR HD PRN IV HD; Start 12/06/18 at 22:00 Phenytoin 300 mg/ Sodium Chloride 56 ml @ 112 mls/hr 2100 IV Last administered on 12/18/18at 22:31; Admin Dose 112 MLS/HR; Start 12/07/18 at 21:00 Fentanyl 100 ml @ 2.5 mls/hr TITRATE IV Last administered on 12/08/18at 06:27; Admin Dose 2.5 MLS/HR; Start 12/08/18 at 06:30 Miscellaneous Information 1 ea NOTE XX ; Start 12/08/18 at 11:30 Glucose (Glutose) 15 gm Q15M PRN PO DECREASED GLUCOSE; Start 12/08/18 at 11:30 Glucose (Glutose) 22.5 gm Q15M PRN PO DECREASED GLUCOSE; Start 12/08/18 at 11:30 Dextrose (D50w Syringe) 25 ml Q15M PRN IV DECREASED GLUCOSE; Start 12/08/18 at 11:30 Dextrose (D50w Syringe) 50 ml Q15M PRN IV DECREASED GLUCOSE; Start 12/08/18 at 11:30 Glucagon (Glucagen) 1 mg Q15M PRN IM DECREASED GLUCOSE; Start 12/08/18 at 11:30 Glucose (Glutose) 15 gm Q15M PRN BUCCAL DECREASED GLUCOSE; Start 12/08/18 at 11:30 Collagenase (Santyl) 1 applic DAILY TOP Last administered on 12/19/18 08:56; Admin Dose 1 APPLIC; Start 12/10/18 at 09:00 Diagnostic Test (Pha) (Accu-Chek) 1 ea Q4 XX Last administered on 12/19/18 04:56; Admin Dose 1 EA; Start 12/11/18 at 13:00 Acetaminophen (Tylenol Liquid) 650 mg Q6H PRN GTB MILD PAIN(1-3)OR ELEVATED TEMP Last administered on 12/16/18at 00:16; Admin Dose 650 MG; Start 12/11/18 at 20:30 Fluconazole/ Sodium Chloride 50 ml @ 50 mls/hr Q24H IVPB Last administered on 12/19/18 14:43; Admin Dose 50 MLS/HR; Start 12/12/18 at 14:00 Metronidazole 100 ml @ 100 mls/hr Q6 IVPB Last administered on 12/19/18 11:17; Admin Dose 100 MLS/HR; Start 12/13/18 at 12:00 Lorazepam (Ativan) 1 mg Q10MIN PRN IV SEIZURES Last administered on 12/14/18 17:16; Admin Dose 1 MG; Start 12/13/18 at 13:30 Epoetin Man-epbx (Retacrit) 6,000 unit TuThSa@1700 SC Last administered on 12/18/18 17:05; Admin Dose 6,000 UNIT; Start 12/16/18 at 17:00 Vancomycin HCl 250 ml @ 125 mls/hr Q96H IVPB Last administered on 12/15/18 17:52; Admin Dose 125 MLS/HR; Start 12/15/18 at 18:00 Insulin Glargine (Lantus) 35 units DAILY@0800 SC Last administered on 12/18/18 08:50; Admin Dose 35 UNITS; Start 12/17/18 at 08:00 Miscellaneous Information 1 ea NOTE XX ; Start 12/16/18 at 10:00 Glucose (Glutose) 15 gm Q15M PRN PO DECREASED GLUCOSE; Start 12/16/18 at 10:00 Glucose (Glutose) 22.5 gm Q15M PRN PO DECREASED GLUCOSE; Start 12/16/18 at 10:00 Dextrose (D50w Syringe) 25 ml Q15M PRN IV DECREASED GLUCOSE; Start 12/16/18 at 10:00 Dextrose (D50w Syringe) 50 ml Q15M PRN IV DECREASED GLUCOSE; Start 12/16/18 at 10:00 Glucagon (Glucagen) 1 mg Q15M PRN IM DECREASED GLUCOSE; Start 12/16/18 at 10:00 Glucose (Glutose) 15 gm Q15M PRN BUCCAL DECREASED GLUCOSE; Start 12/16/18 at 10:00 Hydralazine HCl (Apresoline) 10 mg Q4H PRN IV bp Last administered on 12/17/18at 07:03; Admin Dose 10 MG; Start 12/17/18 at 07:00 Famotidine (Pepcid) 20 mg Q48H PO Last administered on 12/19/18at 09:02; Admin Dose 20 MG; Start 12/19/18 at 09:00 Heparin Sodium (Porcine) (Heparin (1000 Units/ml)) 8,100 unit PER PROTOCOL PRN IV aPTT<47; Start 12/18/18 at 09:30 Heparin Sodium (Porcine) (Heparin (1000 Units/ml)) 4,100 unit PER PROTOCOL PRN IV aPTT<47-57; Start 12/18/18 at 09:30 Heparin Sodium (Porcine) 250 ml @ 18 mls/hr PER PROTOCOL IV Last administered on 12/19/18at 04:02; Admin Dose 14 MLS/HR; Start 12/18/18 at 11:00 Phenytoin 200 mg/ Sodium Chloride 54 ml @ 112 mls/hr AM IV Last administered on 12/19/18at 10:22; Admin Dose 112 MLS/HR; Start 12/19/18 at 09:00 Phenytoin 200 mg/ Sodium Chloride 54 ml @ 112 mls/hr PC LUNCH IV Last administered on 12/19/18at 12:32; Admin Dose 112 MLS/HR; Start 12/19/18 at 12:30 Carvedilol (Coreg) 3.125 mg BID NGT ; Start 12/19/18 at 21:00 Dextrose/Sodium Chloride 1,000 ml @ 75 mls/hr [id number] IV Last administered on 12/19/18at 11:11; Admin Dose 75 MLS/HR; Start 12/19/18 at 11:00 Insulin Aspart (Novolog Insulin Pen) (Adult SC Insulin - Moder... Q4 SC ; Start 12/19/18 at 13:00 Meds reviewed: Yes Allergies Coded Allergies: No Known Allergy (Verified , 12/13/18) Allergies Reviewed: Yes Labs/Studies Labs Reviewed: Reviewed by anesthesiologist Result Diagram: 12/19/18 0400 12/19/18 0400 Laboratory Tests 12/19/18 04:00 test: Negative Studies: ECG Pre-procedure Exam Last vitals Vital Signs Date Temp Pulse Resp B/P (MAP) Pulse Ox O2 O2 Flow FiO2 Time Delivery Rate 12/19/18 67 18 108/51 98 14:27 (70) 12/19/18 Mechanical 13:00 Ventilator 12/19/18 99.2 12:00 12/19/18 30 08:00 Airway: Adequate mouth opening, Adequate thyromental dist Mallampati: Mallampati III Teeth: Normal Lung: Normal Heart: Normal ASA Physical Status ASA physical status: 4 Emergency: None Planned Anesthetic General/MAC: ETT Pre-operative Attestations Prior to commencing anesthesia and surgery, the patient was re-evaluated, there was verification of: *The patient's identity *The results of appropriate recent lab work and preoperative vital signs *The above evaluation not changing prior to induction *Anesthetic plan, risk benefits, alternative and complications discussed with patient/family; questions answered; patient/family understands, accepts and wishes to proceed. JASPER GAMBOA MD Dec 19, 2018 15:08
--- NOTE | 2018-12-19 16:08 | PAC ---
Date/Time of Note Date/Time of Note DATE: 12/19/18 TIME: 16:07 Post-Anesthesia Notes Post-Anesthesia Note Last documented vital signs Vital Signs Date Temp Pulse Resp B/P (MAP) Pulse Ox O2 O2 Flow FiO2 Time Delivery Rate 12/19/18 67 18 108/51 98 14:27 (70) 12/19/18 Mechanical 13:00 Ventilator 12/19/18 99.2 12:00 12/19/18 30 08:00 Activity: WNL Respiratory function: WNL Cardiovascular function: WNL Mental status: Baseline Pain reasonably controlled: Yes Hydration appropriate: Yes Nausea/Vomiting absent: Yes Comments BP:125/67, P:82, Spo2:100%, T:98,9 JASPER GAMBOA MD Dec 19, 2018 16:08
[2018-12-19] MEDS ORDERED: LIDOCAINE 1%/EPI 30 ML INJ INJ ONE (16:15)
--- NOTE | 2018-12-19 17:00 | CONS ---
Assessment/Plan Assessment/Plan Assessment/Plan (Daily) 1. S/p Cardiopulmonary Arrest with ROSC, s/p Hypothermia protocol 2. ESRD on HD [facility] at [facility] 3. acute hypoxemic respiratory failure due to cardiac arrest s/p Intubation on ventilator 4. Shock--likely cardiogenic; cannot exclude obstructive though clinical picture not consistent with massive PE. 5. Sepsis 2/2 staph bacteremia 6. HTN heart disease 7.. DM 8. severe Anemia with Hb down to 6.9- S/p 2 U PRBC on 12/12/18 9. POSITIVE THROMBUS WITHIN THE LEFT. INTERNAL JUGULAR VEIN, AXILLARY, BRACHIAL, AND CEPHALIC VEINS. Plan: pt remains intubated, Hb 8.2, BP stable, afebrile -HD ,will keep pt on MWF schedule while being in hospital continue on Epogen ^6000 units SQ TIW for her anemia, Palliative care has been following to discuss goals of care will follow up Patient is seen in collaboration with Dr Reddy. dw staff Consultation Date/Type/Reason Admit Date/Time Dec 06, 2018 at 12:45 Initial Consult Date 12/06/18 Type of Consult NEPHROLOGY Requesting Provider: BOZENA PARK Date/Time of Note DATE: 12/19/18 TIME: 16:55 24 HR Interval Summary Free Text/Dictation SP trach today ; no preso HD today but was not completed as patient did not tolerated- appx 800 ml was removed ; also HD port has resistance per staff Patient is on Heparin drip- no bleeding from any orifices reported. Right limbos limb alert. Family at bed side- william 25 mins spent to talk with family; all Qs answered dw staff Subjective hx not possible: pt non-verbal, pt critical status Constitutional: requiring IVF, requiring O2 Exam/Review of Systems Exam Vitals Vital Signs Date Temp Pulse Resp B/P (MAP) Pulse Ox O2 O2 Flow FiO2 Time Delivery Rate 12/19/18 70 16:00 12/19/18 18 108/51 98 14:27 (70) 12/19/18 Mechanical 13:00 Ventilator 12/19/18 99.2 12:00 12/19/18 30 08:00 Intake and Output 12/18/18 12/18/18 12/19/18 1515:00 23:00 07:00 IntakeIntake Total 678 ml 708 ml 504 ml BalanceBalance 678 ml 708 ml 504 ml Constitutional: non-verbal, frail, obese Psych: nl mood/affect Eyes: nl lids, nl sclera ENMT: nl external ears & nose Respiratory: diminished breath sounds Cardiovascular: nl pulses, other (s1s2) Gastrointestinal: soft, non-tender Musculoskeletal: muscle weakness, other Extremities: edema, other (Patient is on Heparin drip- no bleeding from any orifices reported. Right UE is limb alert.) Neurological: unresponsive Skin: other (anasarca) Results Result Diagram: 12/19/18 0400 12/19/18 0400 Results 24hrs Laboratory Tests Test 12/18/18 19:02 12/18/18 20:38 12/18/18 22:02 12/19/18 01:11 Activated > 180.0 *H 62.1 H Partial Thromboplast Time Bedside Glucose 141 122 Test 12/19/18 04:00 12/19/18 04:55 12/19/18 08:55 12/19/18 12:32 White Blood Count 8.6 Red Blood Count 2.78 L Hemoglobin 8.2 L Hematocrit 27.0 L Mean Corpuscular 97.1 Volume Mean Corpuscular 29.5 Hemoglobin Mean Corpuscular 30.4 L Hemoglobin Concent Red Cell 14.9 H Distribution Width Platelet Count 194 Mean Platelet Volume 9.8 Immature 1.300 H Granulocytes % Neutrophils % 77.9 H Lymphocytes % 9.2 L Monocytes % 9.8 Eosinophils % 1.6 Basophils % 0.2 Nucleated Red Blood 0.0 Cells % Immature 0.110 H Granulocytes # Neutrophils # 6.7 Lymphocytes # 0.8 Monocytes # 0.8 Eosinophils # 0.1 Basophils # 0.0 Nucleated Red Blood 0.0 Cells # Activated 101.9 *H Partial Thromboplast Time Sodium Level 140 Potassium Level 3.9 Chloride Level 103 Carbon Dioxide Level 24 Anion Gap 13 Blood Urea Nitrogen 67 H Creatinine 5.15 H Glucose Level 110 # Calcium Level 9.6 Phosphorus Level 3.0 Magnesium Level 2.3 Albumin 3.3 Bedside Glucose 104 95 109 Medications Medication Current Medications Ondansetron HCl (Zofran Inj) 4 mg Q6H PRN IV NAUSEA AND/OR VOMITING; Start 12/06/18 at 09:30 Albuterol (Proventil 0.083% (Neb)) 2.5 mg Q2H RESP THERAPY PRN NEB SHORTNESS OF BREATH; Start 12/06/18 at 09:30 Docusate Sodium (Colace) 100 mg Q12H PRN PO CONSTIPATION; Start 12/06/18 at 09:30 Magnesium Hydroxide (Milk Of Mag) 30 ml DAILY PRN PO CONSTIPATION; Start 12/06/18 at 09:30 Aspirin (Aspirin) 81 mg DAILY PO Last administered on 12/19/18 09:02; Admin Dose 81 MG; Start 12/06/18 at 10:30 Brimonidine Tartrate (Alphagan 0.2%) 1 drop DAILY BOTH EYES Last administered on 12/19/18 08:56; Admin Dose 1 DROP; Start 12/06/18 at 11:00 Calcium Acetate (Phoslo) 667 mg WITH MEALS PO Last administered on 12/18/18 17:03; Admin Dose 667 MG; Start 12/06/18 at 12:00 Docusate Sodium (Colace) 200 mg DAILY PO ; Start 12/06/18 at 10:30; Status Hold Lactulose (Enulose) 20 gm BID PO Last administered on 12/19/18 09:02; Admin Dose 20 GM; Start 12/06/18 at 21:00 Montelukast Sodium (Singulair) 10 mg HS PO ; Start 12/06/18 at 21:00; Status Hold Multivit/Ca Carb/ B Cmplx/FA/Prenat (Mariaelena-Rosas) 1 tab DAILY PO Last administered on 12/19/18 09:02; Admin Dose 1 TAB; Start 12/06/18 at 10:30 Norepinephrine 250 ml @ 1.875 mls/ hr TITRATE IV Last administered on 12/07/18 13:25; Admin Dose 56.25 MLS/HR; Start 12/06/18 at 13:00 Atropine Sulfate (Atropine (Syringe)) 1 mg PRN PRN IV prn Last administered on 12/06/18 16:49; Admin Dose 1 MG; Start 12/06/18 at 16:00 Midazolam HCl 50 ml @ 1 mls/hr TITRATE IV Last administered on 12/09/18 05:09; Admin Dose 4 MLS/HR; Start 12/06/18 at 16:30 Vancomycin HCl (Vanco Iv Per Pharmacy) VANCOMYCIN PER PHARMACY PER PROTOCOL XX ; Start 12/06/18 at 17:30 Cefepime HCl 50 ml @ 100 mls/hr Q24H IVPB Last administered on 12/18/18at 20:34; Admin Dose 100 MLS/HR; Start 12/06/18 at 21:00 Levetiracetam 100 ml @ 400 mls/hr Q12 IVPB Last administered on 12/19/18 09:02; Admin Dose 400 MLS/HR; Start 12/06/18 at 21:00 Dopamine HCl/ Dextrose 250 ml @ 7.613 mls/ hr TITRATE IV Last administered on 12/09/18 03:03; Admin Dose 11.419 MLS/HR; Start 12/06/18 at 17:30 Acetaminophen (Tylenol Supp) 650 mg Q4H PRN MI TEMP > 37C; Start 12/06/18 at 18:30 Meperidine HCl (Demerol) 12.5 mg Q4H PRN IV POST OPERATIVE SHIVERING; Start 12/06/18 at 18:30 Meperidine HCl (Demerol) 25 mg Q4H PRN IV POST OPERATIVE SHIVERING; Start at 18:30 Eye Lubricant (Akwa Oint) 1 applic Q6 BOTH EYES Last administered on 12/19/18 12:32; Admin Dose 1 APPLIC; Start 12/07/18 at 00:00 Eye Lubricant (Artificial Tears Oph) 2 drop Q6 BOTH EYES Last administered on 12/19/18 11:17; Admin Dose 2 DROP; Start 12/07/18 at 00:00 Magnesium Sulfate 50 ml @ 25 mls/hr PRN PRN IVPB IV PROTOCOL; Start 12/06/18 at 20:30 Potassium Chloride 50 ml @ 25 mls/hr PRN PRN IVPB IV PROTOCOL Last administered on 12/07/18at 08:33; Admin Dose 25 MLS/HR; Start 12/06/18 at 20:30 Heparin Sodium (Porcine) (Heparin (1000 Units/ml)) 4,000 unit AFTER DIALYSIS CATHETER ; Start 12/06/18 at 22:00 Albumin Human 100 ml @ 100 mls/hr WITH DIALYSIS PRN IV SBP <90 DURING DIALYSIS Last administered on 12/17/18at 11:47; Admin Dose 100 MLS/HR; Start 12/06/18 at 22:00 Sodium Chloride (NS) -To prime the dialy... DIRECTED FOR HD PRN IV HD; Start 12/06/18 at 22:00 Phenytoin 300 mg/ Sodium Chloride 56 ml @ 112 mls/hr 2100 IV Last administered on 12/18/18at 22:31; Admin Dose 112 MLS/HR; Start 12/07/18 at 21:00 Fentanyl 100 ml @ 2.5 mls/hr TITRATE IV Last administered on 12/08/18at 06:27; Admin Dose 2.5 MLS/HR; Start 12/08/18 at 06:30 Miscellaneous Information 1 ea NOTE XX ; Start 12/08/18 at 11:30 Glucose (Glutose) 15 gm Q15M PRN PO DECREASED GLUCOSE; Start 12/08/18 at 11:30 Glucose (Glutose) 22.5 gm Q15M PRN PO DECREASED GLUCOSE; Start 12/08/18 at 11:30 Dextrose (D50w Syringe) 25 ml Q15M PRN IV DECREASED GLUCOSE; Start 12/08/18 at 11:30 Dextrose (D50w Syringe) 50 ml Q15M PRN IV DECREASED GLUCOSE; Start 12/08/18 at 11:30 Glucagon (Glucagen) 1 mg Q15M PRN IM DECREASED GLUCOSE; Start 12/08/18 at 11:30 Glucose (Glutose) 15 gm Q15M PRN BUCCAL DECREASED GLUCOSE; Start 12/08/18 at 11:30 Collagenase (Santyl) 1 applic DAILY TOP Last administered on 12/19/18at 08:56; Admin Dose 1 APPLIC; Start 12/10/18 at 09:00 Diagnostic Test (Pha) (Accu-Chek) 1 ea Q4 XX Last administered on 12/19/18at 04:56; Admin Dose 1 EA; Start 12/11/18 at 13:00 Acetaminophen (Tylenol Liquid) 650 mg Q6H PRN GTB MILD PAIN(1-3)OR ELEVATED TEMP Last administered on 12/16/18at 00:16; Admin Dose 650 MG; Start 12/11/18 at 20:30 Fluconazole/ Sodium Chloride 50 ml @ 50 mls/hr Q24H IVPB Last administered on 12/19/18at 14:43; Admin Dose 50 MLS/HR; Start 12/12/18 at 14:00 Metronidazole 100 ml @ 100 mls/hr Q6 IVPB Last administered on 12/19/18at 11:17; Admin Dose 100 MLS/HR; Start 12/13/18 at 12:00 Lorazepam (Ativan) 1 mg Q10MIN PRN IV SEIZURES Last administered on 12/14/18at 17:16; Admin Dose 1 MG; Start 12/13/18 at 13:30 Epoetin Man-epbx (Retacrit) 6,000 unit TuThSa@1700 SC Last administered on 12/18/18at 17:05; Admin Dose 6,000 UNIT; Start 12/16/18 at 17:00 Vancomycin HCl 250 ml @ 125 mls/hr Q96H IVPB Last administered on 12/15/18at 17:52; Admin Dose 125 MLS/HR; Start 12/15/18 at 18:00 Insulin Glargine (Lantus) 35 units DAILY@0800 SC Last administered on 12/18/18at 08:50; Admin Dose 35 UNITS; Start 12/17/18 at 08:00 Miscellaneous Information 1 ea NOTE XX ; Start 12/16/18 at 10:00 Glucose (Glutose) 15 gm Q15M PRN PO DECREASED GLUCOSE; Start 12/16/18 at 10:00 Glucose (Glutose) 22.5 gm Q15M PRN PO DECREASED GLUCOSE; Start 12/16/18 at 10:00 Dextrose (D50w Syringe) 25 ml Q15M PRN IV DECREASED GLUCOSE; Start 12/16/18 at 10:00 Dextrose (D50w Syringe) 50 ml Q15M PRN IV DECREASED GLUCOSE; Start 12/16/18 at 10:00 Glucagon (Glucagen) 1 mg Q15M PRN IM DECREASED GLUCOSE; Start 12/16/18 at 10:00 Glucose (Glutose) 15 gm Q15M PRN BUCCAL DECREASED GLUCOSE; Start 12/16/18 at 10:00 Hydralazine HCl (Apresoline) 10 mg Q4H PRN IV bp Last administered on 12/17/18at 07:03; Admin Dose 10 MG; Start 12/17/18 at 07:00 Famotidine (Pepcid) 20 mg Q48H PO Last administered on 12/19/18at 09:02; Admin Dose 20 MG; Start 12/19/18 at 09:00 Heparin Sodium (Porcine) (Heparin (1000 Units/ml)) 8,100 unit PER PROTOCOL PRN IV aPTT<47; Start 12/18/18 at 09:30 Heparin Sodium (Porcine) (Heparin (1000 Units/ml)) 4,100 unit PER PROTOCOL PRN IV aPTT<47-57; Start 12/18/18 at 09:30 Heparin Sodium (Porcine) 250 ml @ 18 mls/hr PER PROTOCOL IV Last administered on 12/19/18at 04:02; Admin Dose 14 MLS/HR; Start 12/18/18 at 11:00 Phenytoin 200 mg/ Sodium Chloride 54 ml @ 112 mls/hr AM IV Last administered on 12/19/18at 10:22; Admin Dose 112 MLS/HR; Start 12/19/18 at 09:00 Phenytoin 200 mg/ Sodium Chloride 54 ml @ 112 mls/hr PC LUNCH IV Last administered on 12/19/18at 12:32; Admin Dose 112 MLS/HR; Start 12/19/18 at 12:30 Carvedilol (Coreg) 3.125 mg BID NGT ; Start 12/19/18 at 21:00 Dextrose/Sodium Chloride 1,000 ml @ 75 mls/hr [id number] IV Last administered on 12/19/18at 11:11; Admin Dose 75 MLS/HR; Start 12/19/18 at 11:00 Insulin Aspart (Novolog Insulin Pen) (Adult SC Insulin - Moder... Q4 SC ; Start 12/19/18 at 13:00 EMMETT FRANCIS Dec 19, 2018 17:00
[2018-12-19] MEDS: VANCOMYCIN 1 GM 250 ML IVPB SCH (17:28)
[2018-12-19] MEDS: CEFEPIME 1GM/50 ML (PMX) 50 ML IVPB SCH (20:17)
--- NOTE | 2018-12-19 20:35 | OPR ---
DATE OF OPERATION: HOSPITAL COURSE: The patient is 47-year-old female with multiple medical issues as well as respirato ry failure. ENT was consulted to evaluate for tracheostomy. A bedside tracheostomy was planned. PREOPERATIVE DIAGNOSIS: Respiratory failure. POSTOPERATIVE DIAGNOSIS: Respiratory failure. PROCEDURE: Tracheostomy with Mariama flap. SURGEON: Sohail Brar MD ANESTHESIA: General anesthesia. COMPLICATIONS: None. Estimated blood loss: 15 mL. DESCRIPTION OF PROCEDURE: After informed consent was obtained, the patient was brought to operating room, placed in supine position. General anesthesia was then induced. The neck was injected with ap proximately 10 mL of 1% lidocaine with 1:100,000 epinephrine. After sufficient period of time had el apsed, an incision was made using electrocautery. This was taken down to the level of the thyroid. His thyroid is quite hypervascular so using a bipolar ____ and cut and I slowly got through all of th e thyroid in this fashion. I was able to get down to the trachea and a large Mariama flap was fashione d. It was then sutured to the skin. There was minimal oozing. The tube was then pulled proximally until it could no longer be seen through the wound and a #6 XLT proximal tracheostomy tube was placed without difficulty. It was afixed using tracheal ties and sutures. Dictated By: SOHAIL BRAR MD DM/NTS Conf#: [id number] DID#: [id number] CC: BEAN BEST MD;*EndCC*
[2018-12-19] MEDS: PHENYTOIN 300 MG in SOD CHLORIDE 0.9% 50 ML IV SCH (21:11)
[2018-12-20] VITALS (26 sets, daily range): BP systolic 90–160; BP diastolic 30–113; PULSE 67–83; RESP 9–30
[2018-12-20] MEDS: ARTIFICIAL TEARS 15 ML OPH BOTH EYES SCH ×4 (00:31→17:12)
[2018-12-20] MEDS: metroNIDAZOLE 500 MG/NS (PMX) 100 ML IVPB SCH ×3 (00:32→12:02)
[2018-12-20] MEDS: ACCU-CHEK XX SCH ×5 (01:00→17:11)
[2018-12-20] MEDS: Insulin NOVOLOG SS MODERATE Algorithm(NPO/TPN/ENTERAL FEEDS) SC SCH ×5 (01:27→17:00)
[2018-12-20] MEDS: OCULAR LUBRICANT 3.5 GM OPH OINT BOTH EYES SCH ×4 (06:04→17:12)
[2018-12-20] MEDS: CALCIUM ACETATE 667 MG CAP PO SCH ×3 (08:15→17:16)
[2018-12-20] MEDS: MULTIVIT/CA CARB/B CMPLX/FA TAB PO SCH (08:29)
[2018-12-20] MEDS: ASPIRIN 81 MG TAB PO SCH (08:29)
[2018-12-20] MEDS ORDERED: HEPARIN 1000 UNITS/ML 10 ML INJ IV ONE (08:30)
[2018-12-20] MEDS: BRIMONIDINE 0.2% 5 ML BTL BOTH EYES SCH (08:31)
[2018-12-20] MEDS: LACTULOSE 30ML CUP PO SCH (08:31)
[2018-12-20] MEDS: LEVETIRACETAM 500 MG (PMX) 100 ML IVPB SCH (08:34)
[2018-12-20] MEDS: PHENYTOIN IV SCH ×2 (08:45→13:13)
[2018-12-20] MEDS: SOD CHLORIDE 0.9% IV SCH ×2 (08:45→13:13)
[2018-12-20] MEDS: COLLAGENASE 5 GM (UD JAR) TOP SCH (08:46)
[2018-12-20] MEDS: INSULIN GLARGINE [LANTus] (100 UNITS/ML) SYG SC SCH (08:55)
--- NOTE | 2018-12-20 09:12 | PN ---
Date/Time of Note Date/Time of Note DATE: 12/20/18 TIME: 09:04 Assessment/Plan VTE Prophylaxis Risk score (from Nsg)>0 risk: 10 SCD applied (from Nsg): No SCD contraindicated: DVT Pharmacological prophylaxis: apixaban Lines/Catheters IV Catheter Type (from Nrsg): Central Line Central line still needed: Yes Urinary Cath still in place: No Assessment/Plan Assessment/Plan 1. Sepsis secondary to staph bacteremia and aspiration- improving - ID on board and appreciate recommendations. Continue on current antibiotics - Blood cultures noted with repeat results negative 2. R proximal femoral DVT - will transition to Eliquis and monitor for tolerance - noted with DVT in IJ, axial, cephalic and brachial veins as well 3. s/p Cardiac arrest with ROSC - s/p completion of hypothermia protocol - Initially presented with NSVT and went into torsades then coded. Patient coded another 3 times total secondary to PEA arrest with ROSC - Cardiology on board and appreciate recommendations. 4. Chronic blindness - Chronic left-sided blindness secondary to diabetic retinopathy, patient also has moderate to severe right-sided blindness secondary to diabetic retinopathy 5. ?Arrhythmia, NSVT- resolved - Cardiology on board and appreciate consultation - noted on Coumadin on med rec but INR normal at time of presentation. Will need to touch base with fam vs patient when she recovers on why she takes Coumadin 6. DM - continue Lantus - sugars controlled 7. ESRD on HD - Nephrology, Dr. Reddy, on board and appreciate consultation. T/T/S as outpatient but MWF while inpatient - was unable to finish session on HD yesterday and will touch base with nephrology if she will have a session today given diffuse facial swelling 8. h/o CVA - continue current medications 9. HTN - continue on BB and PRN 10. Anemia - stable - secondary to renal disease - continue on Epogen - H/H remains stable and no need for transfusions at this time. Will need to keep a close eye on hgb given on blood thinners 11. Disposition - Will transition to Eliquis today and continue monitoring. May need another session of HD today and will discuss with Nephrology given worsening swelling of face. Per sister, she tends to swell in her face and arms when overloaded - Santos evaluation still pending - Continue monitoring in ICU today and if remains stable, can downgrade to telemetry tomorrow >35 minutes of critical care time spent with patient Result Diagram: 12/20/18 0500 12/20/18 0500 Results 24hrs Laboratory Tests Test 12/19/18 12:32 12/19/18 17:25 12/19/18 21:17 12/20/18 00:21 Bedside Glucose 109 152 156 Activated 142.2 *H Partial Thromboplast Time Test 12/20/18 01:25 12/20/18 05:00 12/20/18 06:05 12/20/18 06:15 Bedside Glucose 175 150 White Blood Count 7.7 Red Blood Count 2.88 L Hemoglobin 8.4 L Hematocrit 28.1 L Mean Corpuscular 97.6 Volume Mean Corpuscular 29.2 Hemoglobin Mean Corpuscular 29.9 L Hemoglobin Concent Red Cell 14.9 H Distribution Width Platelet Count 232 Mean Platelet Volume 9.3 Immature 0.800 H Granulocytes % Neutrophils % 82.0 H Lymphocytes % 8.3 L Monocytes % 7.2 Eosinophils % 1.3 Basophils % 0.4 Nucleated Red Blood 0.0 Cells % Immature 0.060 H Granulocytes # Neutrophils # 6.3 Lymphocytes # 0.6 L Monocytes # 0.6 Eosinophils # 0.1 Basophils # 0.0 Nucleated Red Blood 0.0 Cells # Sodium Level 141 Potassium Level 4.0 Chloride Level 103 Carbon Dioxide Level 25 Anion Gap 13 Blood Urea Nitrogen 57 H Creatinine 4.73 H Est Glomerular 10 L Filtrat Rate mL/min Glucose Level 154 Calcium Level 9.7 Phosphorus Level 3.3 Magnesium Level 2.2 Albumin 3.6 Phenytoin (Dilantin) 13.3 Level Activated 36.2 H Partial Thromboplast Time Test 12/20/18 08:36 Bedside Glucose 148 Subjective 24 Hr Interval Summary Free Text/Dictation Patient remains stable but has gross swelling of face and RUE. Trach in place. Exam/Review of Systems Exam Vitals Vital Signs Date Temp Pulse Resp B/P (MAP) Pulse Ox O2 O2 Flow FiO2 Time Delivery Rate 12/20/18 85 22 100 30 08:49 12/20/18 147/72 Mechanical 07:00 (97) Ventilator 12/20/18 98.0 04:00 Intake and Output 12/19/18 12/19/18 12/20/18 1515:00 23:00 07:00 IntakeIntake Total 433 ml 1508.5 ml 196 ml OutputOutput Total 1425 ml 0 ml 0 ml BalanceBalance -992 ml 1508.5 ml 196 ml Exam General: Patient remains intubated and nonresponsive. no acute distress Head: swelling of face but no skin tears or weeping appreciated Eyes: EOMI, left pupil is alfredo out chronically. right pupil sluggish to react Neck: Supple, trach Lungs: Coarse to auscultation bilaterally. no wheezing Cardiovascular: S1, S2, regular rate and rhythm, no obvious murmurs Gastrointestinal: soft, non-tender to palpation, protuberant, bowel sounds heard. Ext: swelling UE b/l R>L. no edema lower extremities Skin: No new skin lesions Results Results 24hrs Laboratory Tests Test 12/19/18 12:32 12/19/18 17:25 12/19/18 21:17 12/20/18 00:21 Bedside Glucose 109 152 156 Activated 142.2 *H Partial Thromboplast Time Test 12/20/18 01:25 12/20/18 05:00 12/20/18 06:05 12/20/18 06:15 Bedside Glucose 175 150 White Blood Count 7.7 Red Blood Count 2.88 L Hemoglobin 8.4 L Hematocrit 28.1 L Mean Corpuscular 97.6 Volume Mean Corpuscular 29.2 Hemoglobin Mean Corpuscular 29.9 L Hemoglobin Concent Red Cell 14.9 H Distribution Width Platelet Count 232 Mean Platelet Volume 9.3 Immature 0.800 H Granulocytes % Neutrophils % 82.0 H Lymphocytes % 8.3 L Monocytes % 7.2 Eosinophils % 1.3 Basophils % 0.4 Nucleated Red Blood 0.0 Cells % Immature 0.060 H Granulocytes # Neutrophils # 6.3 Lymphocytes # 0.6 L Monocytes # 0.6 Eosinophils # 0.1 Basophils # 0.0 Nucleated Red Blood 0.0 Cells # Sodium Level 141 Potassium Level 4.0 Chloride Level 103 Carbon Dioxide Level 25 Anion Gap 13 Blood Urea Nitrogen 57 H Creatinine 4.73 H Est Glomerular 10 L Filtrat Rate mL/min Glucose Level 154 Calcium Level 9.7 Phosphorus Level 3.3 Magnesium Level 2.2 Albumin 3.6 Phenytoin (Dilantin) 13.3 Level Activated 36.2 H Partial Thromboplast Time Test 12/20/18 08:36 Bedside Glucose 148 Medications Medication Current Medications Ondansetron HCl (Zofran Inj) 4 mg Q6H PRN IV NAUSEA AND/OR VOMITING; Start 12/06/18 at 09:30 Albuterol (Proventil 0.083% (Neb)) 2.5 mg Q2H RESP THERAPY PRN NEB SHORTNESS OF BREATH; Start 12/06/18 at 09:30 Docusate Sodium (Colace) 100 mg Q12H PRN PO CONSTIPATION; Start 12/06/18 at 09:30 Magnesium Hydroxide (Milk Of Mag) 30 ml DAILY PRN PO CONSTIPATION; Start 12/06/18 at 09:30 Aspirin (Aspirin) 81 mg DAILY PO Last administered on 12/20/18 08:29; Admin Dose 81 MG; Start 12/06/18 at 10:30 Brimonidine Tartrate (Alphagan 0.2%) 1 drop DAILY BOTH EYES Last administered on 12/20/18 08:31; Admin Dose 1 DROP; Start 12/06/18 at 11:00 Calcium Acetate (Phoslo) 667 mg WITH MEALS PO Last administered on 12/20/18 08:15; Admin Dose 667 MG; Start 12/06/18 at 12:00 Docusate Sodium (Colace) 200 mg DAILY PO ; Start 12/06/18 at 10:30; Status Hold Lactulose (Enulose) 20 gm BID PO Last administered on 12/20/18 08:31; Admin Dose 20 GM; Start 12/06/18 at 21:00 Montelukast Sodium (Singulair) 10 mg HS PO ; Start 12/06/18 at 21:00; Status Hold Multivit/Ca Carb/ B Cmplx/FA/Prenat (Mariaelena-Rosas) 1 tab DAILY PO Last administered on 12/20/18 08:29; Admin Dose 1 TAB; Start 12/06/18 at 10:30 Norepinephrine 250 ml @ 1.875 mls/ hr TITRATE IV Last administered on 12/07/18 13:25; Admin Dose 56.25 MLS/HR; Start 12/06/18 at 13:00 Atropine Sulfate (Atropine (Syringe)) 1 mg PRN PRN IV prn Last administered on 12/06/18 16:49; Admin Dose 1 MG; Start 12/06/18 at 16:00 Midazolam HCl 50 ml @ 1 mls/hr TITRATE IV Last administered on 12/09/18at 05:09; Admin Dose 4 MLS/HR; Start 12/06/18 at 16:30 Vancomycin HCl (Vanco Iv Per Pharmacy) VANCOMYCIN PER PHARMACY PER PROTOCOL XX ; Start 12/06/18 at 17:30 Cefepime HCl 50 ml @ 100 mls/hr Q24H IVPB Last administered on 12/19/18at 20:17; Admin Dose 100 MLS/HR; Start 12/06/18 at 21:00 Levetiracetam 100 ml @ 400 mls/hr Q12 IVPB Last administered on 12/20/18at 08:34; Admin Dose 400 MLS/HR; Start 12/06/18 at 21:00 Dopamine HCl/ Dextrose 250 ml @ 7.613 mls/ hr TITRATE IV Last administered on 12/09/18at 03:03; Admin Dose 11.419 MLS/HR; Start 12/06/18 at 17:30 Acetaminophen (Tylenol Supp) 650 mg Q4H PRN [place] TEMP > 37C; Start 12/06/18 at 18:30 Meperidine HCl (Demerol) 12.5 mg Q4H PRN IV POST OPERATIVE SHIVERING; Start 12/06/18 at 18:30 Meperidine HCl (Demerol) 25 mg Q4H PRN IV POST OPERATIVE SHIVERING; Start 12/06/18 at 18:30 Eye Lubricant (Akwa Oint) 1 applic Q6 BOTH EYES Last administered on 12/20/18at 06:04; Admin Dose 1 APPLIC; Start 12/07/18 at 00:00 Eye Lubricant (Artificial Tears Oph) 2 drop Q6 BOTH EYES Last administered on 12/20/18at 06:04; Admin Dose 2 DROP; Start 12/07/18 at 00:00 Magnesium Sulfate 50 ml @ 25 mls/hr PRN PRN IVPB IV PROTOCOL; Start 12/06/18 at 20:30 Potassium Chloride 50 ml @ 25 mls/hr PRN PRN IVPB IV PROTOCOL Last administered on 12/07/18at 08:33; Admin Dose 25 MLS/HR; Start 12/06/18 at 20:30 Heparin Sodium (Porcine) (Heparin (1000 Units/ml)) 4,000 unit AFTER DIALYSIS CATHETER ; Start 12/06/18 at 22:00 Albumin Human 100 ml @ 100 mls/hr WITH DIALYSIS PRN IV SBP <90 DURING DIALYSIS Last administered on 12/17/18at 11:47; Admin Dose 100 MLS/HR; Start 12/06/18 at 22:00 Sodium Chloride (NS) -To prime the dialy... DIRECTED FOR HD PRN IV HD; Start 12/06/18 at 22:00 Phenytoin 300 mg/ Sodium Chloride 56 ml @ 112 mls/hr 2100 IV Last administered on 12/19/18at 21:11; Admin Dose 112 MLS/HR; Start 12/07/18 at 21:00 Fentanyl 100 ml @ 2.5 mls/hr TITRATE IV Last administered on 12/08/18at 06:27; Admin Dose 2.5 MLS/HR; Start 12/08/18 at 06:30 Miscellaneous Information 1 ea NOTE XX ; Start 12/08/18 at 11:30 Glucose (Glutose) 15 gm Q15M PRN PO DECREASED GLUCOSE; Start 12/08/18 at 11:30 Glucose (Glutose) 22.5 gm Q15M PRN PO DECREASED GLUCOSE; Start 12/08/18 at 11:30 Dextrose (D50w Syringe) 25 ml Q15M PRN IV DECREASED GLUCOSE; Start 12/08/18 at 11:30 Dextrose (D50w Syringe) 50 ml Q15M PRN IV DECREASED GLUCOSE; Start 12/08/18 at 11:30 Glucagon (Glucagen) 1 mg Q15M PRN IM DECREASED GLUCOSE; Start 12/08/18 at 11:30 Glucose (Glutose) 15 gm Q15M PRN BUCCAL DECREASED GLUCOSE; Start 12/08/18 at 11 :30 Collagenase (Santyl) 1 applic DAILY TOP Last administered on 12/20/18at 08:46; Admin Dose 1 APPLIC; Start 12/10/18 at 09:00 Diagnostic Test (Pha) (Accu-Chek) 1 ea Q4 XX Last administered on 12/20/18at 08:45; Admin Dose 1 EA; Start 12/11/18 at 13:00 Acetaminophen (Tylenol Liquid) 650 mg Q6H PRN GTB MILD PAIN(1-3)OR ELEVATED TEMP Last administered on 12/16/18at 00:16; Admin Dose 650 MG; Start 12/11/18 at 20:30 Fluconazole/ Sodium Chloride 50 ml @ 50 mls/hr Q24H IVPB Last administered on 12/19/18at 14:43; Admin Dose 50 MLS/HR; Start 12/12/18 at 14:00 Metronidazole 100 ml @ 100 mls/hr Q6 IVPB Last administered on 12/20/18at 06:04; Admin Dose 100 MLS/HR; Start 12/13/18 at 12:00 Lorazepam (Ativan) 1 mg Q10MIN PRN IV SEIZURES Last administered on 12/14/18at 17:16; Admin Dose 1 MG; Start 12/13/18 at 13:30 Epoetin Man-epbx (Retacrit) 6,000 unit TuThSa@1700 SC Last administered on 12/18/18at 17:05; Admin Dose 6,000 UNIT; Start 12/16/18 at 17:00 Vancomycin HCl 250 ml @ 125 mls/hr Q96H IVPB Last administered on 12/19/18at 17:28; Admin Dose 125 MLS/HR; Start 12/15/18 at 18:00 Insulin Glargine (Lantus) 35 units DAILY@0800 SC Last administered on 12/20/18at 08:55; Admin Dose 35 UNITS; Start 12/17/18 at 08:00 Miscellaneous Information 1 ea NOTE XX ; Start 12/16/18 at 10:00 Glucose (Glutose) 15 gm Q15M PRN PO DECREASED GLUCOSE; Start 12/16/18 at 10:00 Glucose (Glutose) 22.5 gm Q15M PRN PO DECREASED GLUCOSE; Start 12/16/18 at 10:00 Dextrose (D50w Syringe) 25 ml Q15M PRN IV DECREASED GLUCOSE; Start 12/16/18 at 10:00 Dextrose (D50w Syringe) 50 ml Q15M PRN IV DECREASED GLUCOSE; Start 12/16/18 at 10:00 Glucagon (Glucagen) 1 mg Q15M PRN IM DECREASED GLUCOSE; Start 12/16/18 at 10:00 Glucose (Glutose) 15 gm Q15M PRN BUCCAL DECREASED GLUCOSE; Start 12/16/18 at 10:00 Hydralazine HCl (Apresoline) 10 mg Q4H PRN IV bp Last administered on 12/17/18at 07:03; Admin Dose 10 MG; Start 12/17/18 at 07:00 Famotidine (Pepcid) 20 mg Q48H PO Last administered on 12/19/18 09:02; Admin Dose 20 MG; Start 12/19/18 at 09:00 Heparin Sodium (Porcine) (Heparin (1000 Units/ml)) 8,100 unit PER PROTOCOL PRN IV aPTT<47 Last administered on 12/19/18 18:05; Admin Dose 8,100 UNIT; Start 12/18/18 at 09:30 Heparin Sodium (Porcine) (Heparin (1000 Units/ml)) 4,100 unit PER PROTOCOL PRN IV aPTT<47-57; Start 12/18/18 at 09:30 Heparin Sodium (Porcine) 250 ml @ 18 mls/hr PER PROTOCOL IV Last administered on 12/19/18 18:05; Admin Dose 13 MLS/HR; Start 12/18/18 at 11:00 Phenytoin 200 mg/ Sodium Chloride 54 ml @ 112 mls/hr AM IV Last administered on 12/20/18 08:45; Admin Dose 112 MLS/HR; Start 12/19/18 at 09:00 Phenytoin 200 mg/ Sodium Chloride 54 ml @ 112 mls/hr PC LUNCH IV Last administered on 12/19/18 12:32; Admin Dose 112 MLS/HR; Start 12/19/18 at 12:30 Carvedilol (Coreg) 3.125 mg BID NGT Last administered on 12/20/18 08:30; Admin Dose 3.125 MG; Start 12/19/18 at 21:00 Insulin Aspart (Novolog Insulin Pen) (Adult SC Insulin - Moder... Q4 SC Last administered on 12/20/18 08:45; Admin Dose 2 UNIT; Start 12/19/18 at 13:00 BEAN BEST MD Dec 20, 2018 09:12
[2018-12-20] MEDS ORDERED: APIXABAN 5 MG TABLET PO SCH (09:30)
--- NOTE | 2018-12-20 09:57 | CONS ---
Consult Date/Type/Reason Admit Date/Time Dec 06, 2018 at 12:45 Initial Consult Date 12/06/18 Type of Consult Pulmonary Requesting Provider: BOZENA PARK Date/Time of Note DATE: 12/20/18 TIME: 09:55 Subjective Status post tracheostomy. Appears comfortable at rest still has significant head and neck edema. Tube feedings decreased secondary to elevated residuals. Continues heparin drip. Objective Vital Signs Date Temp Pulse Resp B/P (MAP) Pulse Ox O2 O2 Flow FiO2 Time Delivery Rate 12/20/18 85 22 100 30 08:49 12/20/18 147/72 Mechanical 07:00 (97) Ventilator 12/20/18 98.0 04:00 Intake and Output 12/19/18 12/19/18 12/20/18 1515:00 23:00 07:00 IntakeIntake Total 433 ml 1508.5 ml 196 ml OutputOutput Total 1425 ml 0 ml 0 ml BalanceBalance -992 ml 1508.5 ml 196 ml Exam 1. Severe sepsis secondary to UTI and pneumonia - Patient has elevated WBC and lactic acid. Given NSS and IV antibiotics in ED. Will continue on fluids and antibiotics. Monitor for improvement in WBC and overall condition - Dotson cultures ordered - remains afebrile GENERAL: Obese young lady on mechanical ventilation via new tracheostomy VITAL SIGNS: per chart NECK: Supple. No JVD or lymphadenopathy. CARDIAC EXAM: S1, S2. No added sounds or murmurs. CHEST: Diminished air entry bilaterally ABDOMEN: Soft, nontender. No guarding or rebound. EXTREMITIES: No cyanosis, clubbing edema +2 NEUROLOGIC: Generalized weakness. Vent Setting Ventilator Support Mode: AC Fraction of Inspired Oxygen pe: 30 Positive End Expiratory Pressu: 5.0 Results/Medications Result Diagram: 12/20/18 0500 12/20/18 0500 Results 24 hrs Laboratory Tests Test 12/19/18 12:32 12/19/18 17:25 12/19/18 21:17 12/20/18 00:21 Bedside Glucose 109 152 156 Activated 142.2 *H Partial Thromboplast Time Test 12/20/18 01:25 12/20/18 05:00 12/20/18 06:05 12/20/18 06:15 Bedside Glucose 175 150 White Blood Count 7.7 Red Blood Count 2.88 L Hemoglobin 8.4 L Hematocrit 28.1 L Mean Corpuscular 97.6 Volume Mean Corpuscular 29.2 Hemoglobin Mean Corpuscular 29.9 L Hemoglobin Concent Red Cell 14.9 H Distribution Width Platelet Count 232 Mean Platelet Volume 9.3 Immature 0.800 H Granulocytes % Neutrophils % 82.0 H Lymphocytes % 8.3 L Monocytes % 7.2 Eosinophils % 1.3 Basophils % 0.4 Nucleated Red Blood 0.0 Cells % Immature 0.060 H Granulocytes # Neutrophils # 6.3 Lymphocytes # 0.6 L Monocytes # 0.6 Eosinophils # 0.1 Basophils # 0.0 Nucleated Red Blood 0.0 Cells # Sodium Level 141 Potassium Level 4.0 Chloride Level 103 Carbon Dioxide Level 25 Anion Gap 13 Blood Urea Nitrogen 57 H Creatinine 4.73 H Est Glomerular 10 L Filtrat Rate mL/min Glucose Level 154 Calcium Level 9.7 Phosphorus Level 3.3 Magnesium Level 2.2 Albumin 3.6 Phenytoin (Dilantin) 13.3 Level Activated 36.2 H Partial Thromboplast Time Test 12/20/18 08:36 Bedside Glucose 148 Medications Current Medications Ondansetron HCl (Zofran Inj) 4 mg Q6H PRN IV NAUSEA AND/OR VOMITING; Start 12/06/18 at 09:30 Albuterol (Proventil 0.083% (Neb)) 2.5 mg Q2H RESP THERAPY PRN NEB SHORTNESS OF BREATH; Start 12/06/18 at 09:30 Docusate Sodium (Colace) 100 mg Q12H PRN PO CONSTIPATION; Start 12/06/18 at 09:30 Magnesium Hydroxide (Milk Of Mag) 30 ml DAILY PRN PO CONSTIPATION; Start 12/06/18 at 09:30 Aspirin (Aspirin) 81 mg DAILY PO Last administered on 12/20/18at 08:29; Admin Dose 81 MG; Start 12/06/18 at 10:30 Brimonidine Tartrate (Alphagan 0.2%) 1 drop DAILY BOTH EYES Last administered on 12/20/18at 08:31; Admin Dose 1 DROP; Start 12/06/18 at 11:00 Calcium Acetate (Phoslo) 667 mg WITH MEALS PO Last administered on 12/20/18at 08:15; Admin Dose 667 MG; Start 12/06/18 at 12:00 Docusate Sodium (Colace) 200 mg DAILY PO ; Start 12/06/18 at 10:30; Status Hold Lactulose (Enulose) 20 gm BID PO Last administered on 12/20/18 08:31; Admin Dose 20 GM; Start 12/06/18 at 21:00 Montelukast Sodium (Singulair) 10 mg HS PO ; Start 12/06/18 at 21:00; Status Hold Multivit/Ca Carb/ B Cmplx/FA/Prenat (Mariaelena-Rosas) 1 tab DAILY PO Last administered on 12/20/18 08:29; Admin Dose 1 TAB; Start 12/06/18 at 10:30 Norepinephrine 250 ml @ 1.875 mls/ hr TITRATE IV Last administered on 12/07/18 13:25; Admin Dose 56.25 MLS/HR; Start 12/06/18 at 13:00 Atropine Sulfate (Atropine (Syringe)) 1 mg PRN PRN IV prn Last administered on 12/06/18 16:49; Admin Dose 1 MG; Start 12/06/18 at 16:00 Midazolam HCl 50 ml @ 1 mls/hr TITRATE IV Last administered on 12/09/18 05:09; Admin Dose 4 MLS/HR; Start 12/06/18 at 16:30 Vancomycin HCl (Vanco Iv Per Pharmacy) VANCOMYCIN PER PHARMACY PER PROTOCOL XX ; Start 12/06/18 at 17:30 Cefepime HCl 50 ml @ 100 mls/hr Q24H IVPB Last administered on 12/19/18 20:17; Admin Dose 100 MLS/HR; Start 12/06/18 at 21:00 Levetiracetam 100 ml @ 400 mls/hr Q12 IVPB Last administered on 12/20/18 08:34; Admin Dose 400 MLS/HR; Start 12/06/18 at 21:00 Dopamine HCl/ Dextrose 250 ml @ 7.613 mls/ hr TITRATE IV Last administered on 12/09/18 03:03; Admin Dose 11.419 MLS/HR; Start 12/06/18 at 17:30 Acetaminophen (Tylenol Supp) 650 mg Q4H PRN [place] TEMP > 37C; Start 12/06/18 at 18:30 Meperidine HCl (Demerol) 12.5 mg Q4H PRN IV POST OPERATIVE SHIVERING; Start 12/06/18 at 18:30 Meperidine HCl (Demerol) 25 mg Q4H PRN IV POST OPERATIVE SHIVERING; Start 12/06 at 18:30 Eye Lubricant (Akwa Oint) 1 applic Q6 BOTH EYES Last administered on 12/20/18at 06:04; Admin Dose 1 APPLIC; Start 12/07/18 at 00:00 Eye Lubricant (Artificial Tears Oph) 2 drop Q6 BOTH EYES Last administered on 12/20/18at 06:04; Admin Dose 2 DROP; Start 12/07/18 at 00:00 Magnesium Sulfate 50 ml @ 25 mls/hr PRN PRN IVPB IV PROTOCOL; Start 12/06/18 at 20:30 Potassium Chloride 50 ml @ 25 mls/hr PRN PRN IVPB IV PROTOCOL Last administered on 12/07/18at 08:33; Admin Dose 25 MLS/HR; Start 12/06/18 at 20:30 Phenytoin 300 mg/ Sodium Chloride 56 ml @ 112 mls/hr 2100 IV Last administered on 12/19/18at 21:11; Admin Dose 112 MLS/HR; Start 12/07/18 at 21:00 Fentanyl 100 ml @ 2.5 mls/hr TITRATE IV Last administered on 12/08/18at 06:27; Admin Dose 2.5 MLS/HR; Start 12/08/18 at 06:30 Miscellaneous Information 1 ea NOTE XX ; Start 12/08/18 at 11:30 Glucose (Glutose) 15 gm Q15M PRN PO DECREASED GLUCOSE; Start 12/08/18 at 11:30 Glucose (Glutose) 22.5 gm Q15M PRN PO DECREASED GLUCOSE; Start 12/08/18 at 11:30 Dextrose (D50w Syringe) 25 ml Q15M PRN IV DECREASED GLUCOSE; Start 12/08/18 at 11:30 Dextrose (D50w Syringe) 50 ml Q15M PRN IV DECREASED GLUCOSE; Start 12/08/18 at 11:30 Glucagon (Glucagen) 1 mg Q15M PRN IM DECREASED GLUCOSE; Start 12/08/18 at 11:30 Glucose (Glutose) 15 gm Q15M PRN BUCCAL DECREASED GLUCOSE; Start 12/08/18 at 11:30 Collagenase (Santyl) 1 applic DAILY TOP Last administered on 12/20/18at 08:46; Admin Dose 1 APPLIC; Start 12/10/18 at 09:00 Diagnostic Test (Pha) (Accu-Chek) 1 ea Q4 XX Last administered on 12/20/18at 08:45; Admin Dose 1 EA; Start 12/11/18 at 13:00 Acetaminophen (Tylenol Liquid) 650 mg Q6H PRN GTB MILD PAIN(1-3)OR ELEVATED TEMP Last administered on 12/16/18at 00:16; Admin Dose 650 MG; Start 12/11/18 at 20:30 Fluconazole/ Sodium Chloride 50 ml @ 50 mls/hr Q24H IVPB Last administered on 12/19/18at 14:43; Admin Dose 50 MLS/HR; Start 12/12/18 at 14:00 Metronidazole 100 ml @ 100 mls/hr Q6 IVPB Last administered on 12/20/18at 06:04; Admin Dose 100 MLS/HR; Start 12/13/18 at 12:00 Lorazepam (Ativan) 1 mg Q10MIN PRN IV SEIZURES Last administered on 12/14/18at 17:16; Admin Dose 1 MG; Start 12/13/18 at 13:30 Epoetin Man-epbx (Retacrit) 6,000 unit TuThSa@1700 SC Last administered on 12/18/18at 17:05; Admin Dose 6,000 UNIT; Start 12/16/18 at 17:00 Vancomycin HCl 250 ml @ 125 mls/hr Q96H IVPB Last administered on 12/19/18at 17:28; Admin Dose 125 MLS/HR; Start 12/15/18 at 18:00 Insulin Glargine (Lantus) 35 units DAILY@0800 SC Last administered on 12/20/18at 08:55; Admin Dose 35 UNITS; Start 12/17/18 at 08:00 Miscellaneous Information 1 ea NOTE XX ; Start 12/16/18 at 10:00 Glucose (Glutose) 15 gm Q15M PRN PO DECREASED GLUCOSE; Start 12/16/18 at 10:00 Glucose (Glutose) 22.5 gm Q15M PRN PO DECREASED GLUCOSE; Start 12/16/18 at 10:00 Dextrose (D50w Syringe) 25 ml Q15M PRN IV DECREASED GLUCOSE; Start 12/16/18 at 10:00 Dextrose (D50w Syringe) 50 ml Q15M PRN IV DECREASED GLUCOSE; Start 12/16/18 at 10:00 Glucagon (Glucagen) 1 mg Q15M PRN IM DECREASED GLUCOSE; Start 12/16/18 at 10:00 Glucose (Glutose) 15 gm Q15M PRN BUCCAL DECREASED GLUCOSE; Start 12/16/18 at 10:00 Hydralazine HCl (Apresoline) 10 mg Q4H PRN IV bp Last administered on 12/17/18at 07:03; Admin Dose 10 MG; Start 12/17/18 at 07:00 Famotidine (Pepcid) 20 mg Q48H PO Last administered on 12/19/18at 09:02; Admin Dose 20 MG; Start 12/19/18 at 09:00 Phenytoin 200 mg/ Sodium Chloride 54 ml @ 112 mls/hr AM IV Last administered on 12/20/18at 08:45; Admin Dose 112 MLS/HR; Start 12/19/18 at 09:00 Phenytoin 200 mg/ Sodium Chloride 54 ml @ 112 mls/hr PC LUNCH IV Last administered on 12/19/18at 12:32; Admin Dose 112 MLS/HR; Start 12/19/18 at 12:30 Carvedilol (Coreg) 3.125 mg BID NGT Last administered on 12/20/18at 08:30; Admin Dose 3.125 MG; Start 12/19/18 at 21:00 Insulin Aspart (Novolog Insulin Pen) (Adult SC Insulin - Moder... Q4 SC Last administered on 12/20/18at 08:45; Admin Dose 2 UNIT; Start 12/19/18 at 13:00 Apixaban (Eliquis) 10 mg BID PO ; Start 12/20/18 at 09:30; Stop 12/27/18 at 09:29 Assessment/Plan Hospital Course (Demo Recall) Assessment 1. Cardiopulmonary arrest with likely anoxic brain injury. 2. Recent seizure history of seizures 3. Significant anemia questionable GI bleed H&H currently stable. 4. Renal insufficiency possible ATN injury 5. Acute hypoxemic respiratory failure likely secondary to aspiration pneumonia versus ARDS. No status post tracheostomy 6. End-stage renal failure 7. Acute venous thromboembolism Plan 1. Continue mechanical ventilation remains comfortable following tracheostomy 2. Severe anoxic brain injury. Patient will not be weaned from mechanical ventilation. 3. Status post G-tube placement, continue tube feeding as tolerated 4. Renal recommendations 5. Tube feeding as tolerated 6. Transition to oral anticoagulation Danielle baltazar. Critical care time 40 minutes. SEDRICK MORALEZ MD, [facility] Dec 20, 2018 09:57
--- NOTE | 2018-12-20 11:18 | PDOCDIS ---
Discharge Instructions DIAGNOSIS Discharge Diagnosis 1. Sepsis secondary to staph bacteremia and aspiration- improving 2. R proximal femoral DVT 3. s/p Cardiac arrest with ROSC 4. Chronic blindness 5. ?Arrhythmia, NSVT- resolved 6. DM 7. ESRD on HD 8. h/o CVA 9. HTN 10. Anemia CONDITION [id number] Patient Condition: [id number] Stable FOLLOW UP/APPOINTMENTS Follow-up Plan 1. Continue treatment in [facility] Pope MD Dec 20, 2018 11:18
--- NOTE | 2018-12-20 12:01 | CONS ---
Assessment/Plan Assessment/Plan Assessment/Plan (Daily) 1. S/p Cardiopulmonary Arrest with ROSC, s/p Hypothermia protocol 2. ESRD on HD TTS schedule at [facility] 3. acute hypoxemic respiratory failure due to cardiac arrest s/p Intubation on ventilator 4. Shock--likely cardiogenic; cannot exclude obstructive though clinical picture not consistent with massive PE. 5. Sepsis 2/2 staph bacteremia 6. HTN heart disease 7.. DM 8. severe Anemia with Hb down to 6.9- S/p 2 U PRBC on 12/12/18 9. POSITIVE THROMBUS WITHIN THE LEFT. INTERNAL JUGULAR VEIN, AXILLARY, BRACHIAL, AND CEPHALIC VEINS. Plan: pt remains intubated, Hb 8.4, BP stable, afebrile -HD ,will keep pt on MWF schedule while being in hospital continue on Epogen ^6000 units SQ TIW for her anemia, Palliative care has been following to discuss goals of care will follow up Total Critical care time spent 30 mins. Patient is seen in collaboration with Dr Reddy. dw staff Consultation Date/Type/Reason Admit Date/Time Dec 06, 2018 at 12:45 Initial Consult Date 12/06/18 Type of Consult NEPHROLOGY Reason for Consultation HD Requesting Provider: BOZENA PARK Date/Time of Note DATE: 12/20/18 TIME: 11:58 24 HR Interval Summary Subjective hx not possible: pt non-verbal, pt critical Constitutional: requiring IVF, requiring O2 Exam/Review of Systems Exam Vitals Vital Signs Date Temp Pulse Resp B/P (MAP) Pulse Ox O2 O2 Flow FiO2 Time Delivery Rate 12/20/18 89 23 100 11:06 12/20/18 134/83 Mechanical 09:00 (100) Ventilator 12/20/18 30 08:49 12/20/18 99.1 08:00 Intake and Output 12/19/18 12/19/18 12/20/18 1515:00 23:00 07:00 IntakeIntake Total 433 ml 1508.5 ml 196 ml OutputOutput Total 1425 ml 0 ml 0 ml BalanceBalance -992 ml 1508.5 ml 196 ml Constitutional: non-verbal Psych: nl mood/affect Eyes: nl lids, nl sclera ENMT: nl external ears & nose Neck: non-tender, other (tarch inatct) Respiratory: diminished breath sounds Cardiovascular: nl pulses, other (s1s2) Gastrointestinal: soft, non-tender Musculoskeletal: muscle weakness, range of motion Extremities: edema Neurological: unresponsive Skin: nl turgor Results Result Diagram: 12/20/18 0500 12/20/18 0500 Results 24hrs Laboratory Tests Test 12/19/18 12:32 12/19/18 17:25 12/19/18 21:17 12/20/18 00:21 Bedside Glucose 109 152 156 Activated 142.2 *H Partial Thromboplast Time Test 12/20/18 01:25 12/20/18 05:00 12/20/18 06:05 12/20/18 06:15 Bedside Glucose 175 150 White Blood Count 7.7 Red Blood Count 2.88 L Hemoglobin 8.4 L Hematocrit 28.1 L Mean Corpuscular 97.6 Volume Mean Corpuscular 29.2 Hemoglobin Mean Corpuscular 29.9 L Hemoglobin Concent Red Cell 14.9 H Distribution Width Platelet Count 232 Mean Platelet Volume 9.3 Immature 0.800 H Granulocytes % Neutrophils % 82.0 H Lymphocytes % 8.3 L Monocytes % 7.2 Eosinophils % 1.3 Basophils % 0.4 Nucleated Red Blood 0.0 Cells % Immature 0.060 H Granulocytes # Neutrophils # 6.3 Lymphocytes # 0.6 L Monocytes # 0.6 Eosinophils # 0.1 Basophils # 0.0 Nucleated Red Blood 0.0 Cells # Sodium Level 141 Potassium Level 4.0 Chloride Level 103 Carbon Dioxide Level 25 Anion Gap 13 Blood Urea Nitrogen 57 H Creatinine 4.73 H Est Glomerular 10 L Filtrat Rate mL/min Glucose Level 154 Calcium Level 9.7 Phosphorus Level 3.3 Magnesium Level 2.2 Albumin 3.6 Phenytoin (Dilantin) 13.3 Level Activated 36.2 H Partial Thromboplast Time Test 12/20/18 08:36 Bedside Glucose 148 Medications Medication Current Medications Ondansetron HCl (Zofran Inj) 4 mg Q6H PRN IV NAUSEA AND/OR VOMITING; Start 12/06/18 at 09:30 Albuterol (Proventil 0.083% (Neb)) 2.5 mg Q2H RESP THERAPY PRN NEB SHORTNESS OF BREATH; Start 12/06/18 at 09:30 Docusate Sodium (Colace) 100 mg Q12H PRN PO CONSTIPATION; Start 12/06/18 at 09:30 Magnesium Hydroxide (Milk Of Mag) 30 ml DAILY PRN PO CONSTIPATION; Start 12/06/18 at 09:30 Aspirin (Aspirin) 81 mg DAILY PO Last administered on 12/20/18 08:29; Admin Dose 81 MG; Start 12/06/18 at 10:30 Brimonidine Tartrate (Alphagan 0.2%) 1 drop DAILY BOTH EYES Last administered on 12/20/18 08:31; Admin Dose 1 DROP; Start 12/06/18 at 11:00 Calcium Acetate (Phoslo) 667 mg WITH MEALS PO Last administered on 12/20/18 08:15; Admin Dose 667 MG; Start 12/06/18 at 12:00 Docusate Sodium (Colace) 200 mg DAILY PO ; Start 12/06/18 at 10:30; Status Hold Lactulose (Enulose) 20 gm BID PO Last administered on 12/20/18 08:31; Admin Dose 20 GM; Start 12/06/18 at 21:00 Montelukast Sodium (Singulair) 10 mg HS PO ; Start 12/06/18 at 21:00; Status Hold Multivit/Ca Carb/ B Cmplx/FA/Prenat (Mariaelena-Rosas) 1 tab DAILY PO Last administered on 12/20/18 08:29; Admin Dose 1 TAB; Start 12/06/18 at 10:30 Norepinephrine 250 ml @ 1.875 mls/ hr TITRATE IV Last administered on 12/07/18 13:25; Admin Dose 56.25 MLS/HR; Start 12/06/18 at 13:00 Atropine Sulfate (Atropine (Syringe)) 1 mg PRN PRN IV prn Last administered on 12/06/18 16:49; Admin Dose 1 MG; Start 12/06/18 at 16:00 Midazolam HCl 50 ml @ 1 mls/hr TITRATE IV Last administered on 12/09/18 05:09; Admin Dose 4 MLS/HR; Start 12/06/18 at 16:30 Vancomycin HCl (Vanco Iv Per Pharmacy) VANCOMYCIN PER PHARMACY PER PROTOCOL XX ; Start 12/06/18 at 17:30 Cefepime HCl 50 ml @ 100 mls/hr Q24H IVPB Last administered on 12/19/18 20:17; Admin Dose 100 MLS/HR; Start 12/06/18 at 21:00 Levetiracetam 100 ml @ 400 mls/hr Q12 IVPB Last administered on 12/20/18at 08:34; Admin Dose 400 MLS/HR; Start 12/06/18 at 21:00 Dopamine HCl/ Dextrose 250 ml @ 7.613 mls/ hr TITRATE IV Last administered on 12/09/18at 03:03; Admin Dose 11.419 MLS/HR; Start 12/06/18 at 17:30 Acetaminophen (Tylenol Supp) 650 mg Q4H PRN [place] TEMP > 37C; Start 12/06/18 at 18:30 Meperidine HCl (Demerol) 12.5 mg Q4H PRN IV POST OPERATIVE SHIVERING; Start 12/06/18 at 18:30 Meperidine HCl (Demerol) 25 mg Q4H PRN IV POST OPERATIVE SHIVERING; Start 12/06/18 at 18:30 Eye Lubricant (Akwa Oint) 1 applic Q6 BOTH EYES Last administered on 12/20/18at 06:04; Admin Dose 1 APPLIC; Start 12/07/18 at 00:00 Eye Lubricant (Artificial Tears Oph) 2 drop Q6 BOTH EYES Last administered on 12/20/18at 06:04; Admin Dose 2 DROP; Start 12/07/18 at 00:00 Magnesium Sulfate 50 ml @ 25 mls/hr PRN PRN IVPB IV PROTOCOL; Start 12/06/18 at 20:30 Potassium Chloride 50 ml @ 25 mls/hr PRN PRN IVPB IV PROTOCOL Last administered on 12/07/18at 08:33; Admin Dose 25 MLS/HR; Start 12/06/18 at 20:30 Phenytoin 300 mg/ Sodium Chloride 56 ml @ 112 mls/hr 2100 IV Last administered on 12/19/18at 21:11; Admin Dose 112 MLS/HR; Start 12/07/18 at 21:00 Fentanyl 100 ml @ 2.5 mls/hr TITRATE IV Last administered on 12/08/18at 06:27; Admin Dose 2.5 MLS/HR; Start 12/08/18 at 06:30 Miscellaneous Information 1 ea NOTE XX ; Start 12/08/18 at 11:30 Glucose (Glutose) 15 gm Q15M PRN PO DECREASED GLUCOSE; Start 12/08/18 at 11:30 Glucose (Glutose) 22.5 gm Q15M PRN PO DECREASED GLUCOSE; Start 12/08/18 at 11:30 Dextrose (D50w Syringe) 25 ml Q15M PRN IV DECREASED GLUCOSE; Start 12/08/18 at 11:30 Dextrose (D50w Syringe) 50 ml Q15M PRN IV DECREASED GLUCOSE; Start 12/08/18 at 11:30 Glucagon (Glucagen) 1 mg Q15M PRN IM DECREASED GLUCOSE; Start 12/08/18 at 11:30 Glucose (Glutose) 15 gm Q15M PRN BUCCAL DECREASED GLUCOSE; Start 12/08/18 at 11:30 Collagenase (Santyl) 1 applic DAILY TOP Last administered on 12/20/18 08:46; Admin Dose 1 APPLIC; Start 12/10/18 at 09:00 Diagnostic Test (Pha) (Accu-Chek) 1 ea Q4 XX Last administered on 12/20/18 08:45; Admin Dose 1 EA; Start 12/11/18 at 13:00 Acetaminophen (Tylenol Liquid) 650 mg Q6H PRN GTB MILD PAIN(1-3)OR ELEVATED TEMP Last administered on 12/16/18 00:16; Admin Dose 650 MG; Start 12/11/18 at 20:30 Fluconazole/ Sodium Chloride 50 ml @ 50 mls/hr Q24H IVPB Last administered on 12/19/18 14:43; Admin Dose 50 MLS/HR; Start 12/12/18 at 14:00 Metronidazole 100 ml @ 100 mls/hr Q6 IVPB Last administered on 12/20/18 06:04; Admin Dose 100 MLS/HR; Start 12/13/18 at 12:00 Lorazepam (Ativan) 1 mg Q10MIN PRN IV SEIZURES Last administered on 12/14/18 17:16; Admin Dose 1 MG; Start 12/13/18 at 13:30 Epoetin Man-epbx (Retacrit) 6,000 unit TuThSa@1700 SC Last administered on 12/18/18 17:05; Admin Dose 6,000 UNIT; Start 12/16/18 at 17:00 Vancomycin HCl 250 ml @ 125 mls/hr Q96H IVPB Last administered on 12/19/18 17:28; Admin Dose 125 MLS/HR; Start 12/15/18 at 18:00 Insulin Glargine (Lantus) 35 units DAILY@0800 SC Last administered on 12/20/18at 08:55; Admin Dose 35 UNITS; Start 12/17/18 at 08:00 Miscellaneous Information 1 ea NOTE XX ; Start 12/16/18 at 10:00 Glucose (Glutose) 15 gm Q15M PRN PO DECREASED GLUCOSE; Start 12/16/18 at 10:00 Glucose (Glutose) 22.5 gm Q15M PRN PO DECREASED GLUCOSE; Start 12/16/18 at 10:00 Dextrose (D50w Syringe) 25 ml Q15M PRN IV DECREASED GLUCOSE; Start 12/16/18 at 10:00 Dextrose (D50w Syringe) 50 ml Q15M PRN IV DECREASED GLUCOSE; Start 12/16/18 at 10:00 Glucagon (Glucagen) 1 mg Q15M PRN IM DECREASED GLUCOSE; Start 12/16/18 at 10:00 Glucose (Glutose) 15 gm Q15M PRN BUCCAL DECREASED GLUCOSE; Start 12/16/18 at 10:00 Hydralazine HCl (Apresoline) 10 mg Q4H PRN IV bp Last administered on 12/17/18at 07:03; Admin Dose 10 MG; Start 12/17/18 at 07:00 Famotidine (Pepcid) 20 mg Q48H PO Last administered on 12/19/18at 09:02; Admin Dose 20 MG; Start 12/19/18 at 09:00 Phenytoin 200 mg/ Sodium Chloride 54 ml @ 112 mls/hr AM IV Last administered on 12/20/18at 08:45; Admin Dose 112 MLS/HR; Start 12/19/18 at 09:00 Phenytoin 200 mg/ Sodium Chloride 54 ml @ 112 mls/hr PC LUNCH IV Last admi nistered on 12/19/18at 12:32; Admin Dose 112 MLS/HR; Start 12/19/18 at 12:30 Carvedilol (Coreg) 3.125 mg BID NGT Last administered on 12/20/18 08:30; Admin Dose 3.125 MG; Start 12/19/18 at 21:00 Insulin Aspart (Novolog Insulin Pen) (Adult SC Insulin - Moder... Q4 SC Last administered on 4/20/19at 08:45; Admin Dose 2 UNIT; Start 12/19/18 at 13:00 Apixaban (Eliquis) 10 mg BID PO Last administered on 12/20/18at 10:21; Admin Dose 10 MG; Start 12/20/18 at 09:30; Stop 12/26/18 at 23:59 Apixaban (Eliquis) 5 mg BID PO ; Start 12/27/18 at 09:00 EMMETT FRANCIS Dec 20, 2018 12:01
--- NOTE | 2018-12-20 12:57 | CONS ---
Assessment/Plan Assessment/Plan Hospital Course (Demo Recall) No acute changes patient is status post tracheostomy looks comfortable no fevers overnight she is noncommunicative and in no distress. WBC 7.7 neutrophils 82 Microbiology: Blood cultures on admission grew oxacillin sensitive staph aureus, repeat blood cultures negative urine culture negative sputum culture grew Rosa albicans. Femoral line tip culture grew Corynebacterium, coag negative staph and alpha hemolytic strep species Extremity venous study revealed a DVT involving the right proximal femoral vein Indwelling: Endotracheal tube, PEG, right upper extremity AV fistula, right fe moral triple-lumen catheter 12/14/18 Antimicrobials: Vancomycin, Flagyl, fluconazole, cefepime Physical examination: Obese chronically ill-appearing middle-aged woman who is noncommunicative intubated in no distress. Head atraumatic normocephalic neck is obese chest rise symmetrical breath sounds diminished bases heart S1-S2 abdomen obese soft bowel sounds hypoactive extremities with trace edema Assessment: 1. Status post infected femoral line discontinuation==> resolved fevers 1. Status post septic shock 2. Bilateral pneumonia, treated 3. Status post oxacillin sensitive staph aureus bacteremia 4. Status post cardiac arrest with hypothermia protocol 5. Diabetes 6. Seizure disorder 7. End-stage renal disease, hemodialysis dependent 8. Cardiomyopathy with ejection fraction of 35% 9. Right lower extremity DVT Plan: Remains stable, will dc antibiotics and observe Consultation Date/Type/Reason Admit Date/Time Dec 06, 2018 at 12:45 Initial Consult Date 12/06/18 Type of Consult id Requesting Provider: BOZENA PARK Date/Time of Note DATE: 12/20/18 TIME: 12:56 Exam/Review of Systems Exam Vitals Vital Signs Date Temp Pulse Resp B/P (MAP) Pulse Ox O2 O2 Flow FiO2 Time Delivery Rate 12/20/18 73 12:01 12/20/18 23 100 11:06 12/20/18 134/83 Mechanical 09:00 (100) Ventilator 12/20/18 30 08:49 12/20/18 99.1 08:00 Intake and Output 12/19/18 12/19/18 12/20/18 1515:00 23:00 07:00 IntakeIntake Total 433 ml 1508.5 ml 196 ml OutputOutput Total 1425 ml 0 ml 0 ml BalanceBalance -992 ml 1508.5 ml 196 ml Results Result Diagram: 12/20/18 0500 12/20/18 0500 Results 24hrs Laboratory Tests Test 12/19/18 17:25 12/19/18 21:17 12/20/18 00:21 12/20/18 01:25 Bedside Glucose 152 156 175 Activated 142.2 *H Partial Thromboplast Time Test 12/20/18 05:00 12/20/18 06:05 12/20/18 06:15 12/20/18 08:36 White Blood Count 7.7 Red Blood Count 2.88 L Hemoglobin 8.4 L Hematocrit 28.1 L Mean Corpuscular 97.6 Volume Mean Corpuscular 29.2 Hemoglobin Mean Corpuscular 29.9 L Hemoglobin Concent Red Cell 14.9 H Distribution Width Platelet Count 232 Mean Platelet Volume 9.3 Immature 0.800 H Granulocytes % Neutrophils % 82.0 H Lymphocytes % 8.3 L Monocytes % 7.2 Eosinophils % 1.3 Basophils % 0.4 Nucleated Red Blood 0.0 Cells % Immature 0.060 H Granulocytes # Neutrophils # 6.3 Lymphocytes # 0.6 L Monocytes # 0.6 Eosinophils # 0.1 Basophils # 0.0 Nucleated Red Blood 0.0 Cells # Sodium Level 141 Potassium Level 4.0 Chloride Level 103 Carbon Dioxide Level 25 Anion Gap 13 Blood Urea Nitrogen 57 H Creatinine 4.73 H Est Glomerular 10 L Filtrat Rate mL/min Glucose Level 154 Calcium Level 9.7 Phosphorus Level 3.3 Magnesium Level 2.2 Albumin 3.6 Phenytoin (Dilantin) 13.3 Level Bedside Glucose 150 148 Activated 36.2 H Partial Thromboplast Time Medications Medication Current Medications Ondansetron HCl (Zofran Inj) 4 mg Q6H PRN IV NAUSEA AND/OR VOMITING; Start 12/06/18 at 09:30 Albuterol (Proventil 0.083% (Neb)) 2.5 mg Q2H RESP THERAPY PRN NEB SHORTNESS OF BREATH; Start 12/06/18 at 09:30 Docusate Sodium (Colace) 100 mg Q12H PRN PO CONSTIPATION; Start 12/06/18 at 09:30 Magnesium Hydroxide (Milk Of Mag) 30 ml DAILY PRN PO CONSTIPATION; Start 12/06/18 at 09:30 Aspirin (Aspirin) 81 mg DAILY PO Last administered on 12/20/18at 08:29; Admin Dose 81 MG; Start 12/06/18 at 10:30 Brimonidine Tartrate (Alphagan 0.2%) 1 drop DAILY BOTH EYES Last administered on 12/20/18 08:31; Admin Dose 1 DROP; Start 12/06/18 at 11:00 Calcium Acetate (Phoslo) 667 mg WITH MEALS PO Last administered on 12/20/18 12:02; Admin Dose 667 MG; Start 12/06/18 at 12:00 Docusate Sodium (Colace) 200 mg DAILY PO ; Start 12/06/18 at 10:30; Status Hold Lactulose (Enulose) 20 gm BID PO Last administered on 12/20/18 08:31; Admin Dose 20 GM; Start 12/06/18 at 21:00 Montelukast Sodium (Singulair) 10 mg HS PO ; Start 12/06/18 at 21:00; Status Hold Multivit/Ca Carb/ B Cmplx/FA/Prenat (Mariaelena-Rosas) 1 tab DAILY PO Last administered on 12/20/18 08:29; Admin Dose 1 TAB; Start 12/06/18 at 10:30 Norepinephrine 250 ml @ 1.875 mls/ hr TITRATE IV Last administered on 12/07/18 13:25; Admin Dose 56.25 MLS/HR; Start 12/06/18 at 13:00 Atropine Sulfate (Atropine (Syringe)) 1 mg PRN PRN IV prn Last administered on 12/06/18 16:49; Admin Dose 1 MG; Start 12/06/18 at 16:00 Midazolam HCl 50 ml @ 1 mls/hr TITRATE IV Last administered on 12/09/18 05:09; Admin Dose 4 MLS/HR; Start 12/06/18 at 16:30 Vancomycin HCl (Vanco Iv Per Pharmacy) VANCOMYCIN PER PHARMACY PER PROTOCOL XX ; Start 12/06/18 at 17:30 Cefepime HCl 50 ml @ 100 mls/hr Q24H IVPB Last administered on 12/19/18 20:17; Admin Dose 100 MLS/HR; Start 12/06/18 at 21:00 Levetiracetam 100 ml @ 400 mls/hr Q12 IVPB Last administered on 12/20/18 08:34; Admin Dose 400 MLS/HR; Start 12/06/18 at 21:00 Dopamine HCl/ Dextrose 250 ml @ 7.613 mls/ hr TITRATE IV Last administered on 12/09/18at 03:03; Admin Dose 11.419 MLS/HR; Start 12/06/18 at 17:30 Acetaminophen (Tylenol Supp) 650 mg Q4H PRN [place] TEMP > 37C; Start 12/06/18 at 18 :30 Meperidine HCl (Demerol) 12.5 mg Q4H PRN IV POST OPERATIVE SHIVERING; Start 12/06/18 at 18:30 Meperidine HCl (Demerol) 25 mg Q4H PRN IV POST OPERATIVE SHIVERING; Start 12/06/18 at 18:30 Eye Lubricant (Akwa Oint) 1 applic Q6 BOTH EYES Last administered on 12/20/18at 12:03; Admin Dose 1 APPLIC; Start 12/07/18 at 00:00 Eye Lubricant (Artificial Tears Oph) 2 drop Q6 BOTH EYES Last administered on 12/20/18at 12:03; Admin Dose 2 DROP; Start 12/07/18 at 00:00 Magnesium Sulfate 50 ml @ 25 mls/hr PRN PRN IVPB IV PROTOCOL; Start 12/06/18 at 20:30 Potassium Chloride 50 ml @ 25 mls/hr PRN PRN IVPB IV PROTOCOL Last administered on 12/07/18at 08:33; Admin Dose 25 MLS/HR; Start 12/06/18 at 20:30 Phenytoin 300 mg/ Sodium Chloride 56 ml @ 112 mls/hr 2100 IV Last administered on 12/19/18at 21:11; Admin Dose 112 MLS/HR; Start 12/07/18 at 21:00 Fentanyl 100 ml @ 2.5 mls/hr TITRATE IV Last administered on 12/08/18at 06:27; Admin Dose 2.5 MLS/HR; Start 12/08/18 at 06:30 Miscellaneous Information 1 ea NOTE XX ; Start 12/08/18 at 11:30 Glucose (Glutose) 15 gm Q15M PRN PO DECREASED GLUCOSE; Start 12/08/18 at 11:30 Glucose (Glutose) 22.5 gm Q15M PRN PO DECREASED GLUCOSE; Start 12/08/18 at 11:30 Dextrose (D50w Syringe) 25 ml Q15M PRN IV DECREASED GLUCOSE; Start 12/08/18 at 11:30 Dextrose (D50w Syringe) 50 ml Q15M PRN IV DECREASED GLUCOSE; Start 12/08/18 at 11:30 Glucagon (Glucagen) 1 mg Q15M PRN IM DECREASED GLUCOSE; Start 12/08/18 at 11:30 Glucose (Glutose) 15 gm Q15M PRN BUCCAL DECREASED GLUCOSE; Start 12/08/18 at 11:30 Collagenase (Santyl) 1 applic DAILY TOP Last administered on 12/20/18 08:46; Admin Dose 1 APPLIC; Start 12/10/18 at 09:00 Diagnostic Test (Pha) (Accu-Chek) 1 ea Q4 XX Last administered on 12/20/18 08:45; Admin Dose 1 EA; Start 12/11/18 at 13:00 Acetaminophen (Tylenol Liquid) 650 mg Q6H PRN GTB MILD PAIN(1-3)OR ELEVATED TEMP Last administered on 12/16/18 00:16; Admin Dose 650 MG; Start 12/11/18 at 20:30 Fluconazole/ Sodium Chloride 50 ml @ 50 mls/hr Q24H IVPB Last administered on 12/19/18 14:43; Admin Dose 50 MLS/HR; Start 12/12/18 at 14:00 Metronidazole 100 ml @ 100 mls/hr Q6 IVPB Last administered on 12/20/18 12:02; Admin Dose 100 MLS/HR; Start 12/13/18 at 12:00 Lorazepam (Ativan) 1 mg Q10MIN PRN IV SEIZURES Last administered on 12/14/18 17:16; Admin Dose 1 MG; Start 12/13/18 at 13:30 Epoetin Man-epbx (Retacrit) 6,000 unit TuThSa@1700 SC Last administered on 12/18/18 17:05; Admin Dose 6,000 UNIT; Start 12/16/18 at 17:00 Vancomycin HCl 250 ml @ 125 mls/hr Q96H IVPB Last administered on 12/19/18 17:28; Admin Dose 125 MLS/HR; Start 12/15/18 at 18:00 Insulin Glargine (Lantus) 35 units DAILY@0800 SC Last administered on 12/20/18 08:55; Admin Dose 35 UNITS; Start 12/17/18 at 08:00 Miscellaneous Information 1 ea NOTE XX ; Start 12/16/18 at 10:00 Glucose (Glutose) 15 gm Q15M PRN PO DECREASED GLUCOSE; Start 12/16/18 at 10:00 Glucose (Glutose) 22.5 gm Q15M PRN PO DECREASED GLUCOSE; Start 12/16/18 at 10:00 Dextrose (D50w Syringe) 25 ml Q15M PRN IV DECREASED GLUCOSE; Start 12/16/18 at 10:00 Dextrose (D50w Syringe) 50 ml Q15M PRN IV DECREASED GLUCOSE; Start 12/16/18 at 10:00 Glucagon (Glucagen) 1 mg Q15M PRN IM DECREASED GLUCOSE; Start 12/16/18 at 10:00 Glucose (Glutose) 15 gm Q15M PRN BUCCAL DECREASED GLUCOSE; Start 12/16/18 at 10:00 Hydralazine HCl (Apresoline) 10 mg Q4H PRN IV bp Last administered on 12/17/18at 07:03; Admin Dose 10 MG; Start 12/17/18 at 07:00 Famotidine (Pepcid) 20 mg Q48H PO Last administered on 12/19/18at 09:02; Admin Dose 20 MG; Start 12/19/18 at 09:00 Phenytoin 200 mg/ Sodium Chloride 54 ml @ 112 mls/hr AM IV Last administered on 12/20/18at 08:45; Admin Dose 112 MLS/HR; Start 12/19/18 at 09:00 Phenytoin 200 mg/ Sodium Chloride 54 ml @ 112 mls/hr PC LUNCH IV Last administered on 12/19/18at 12:32; Admin Dose 112 MLS/HR; Start 12/19/18 at 12:30 Carvedilol (Coreg) 3.125 mg BID NGT Last administered on 12/20/18at 08:30; Admin Dose 3.125 MG; Start 12/19/18 at 21:00 Insulin Aspart (Novolog Insulin Pen) (Adult SC Insulin - Moder... Q4 SC Last administered on 12/20/18at 08:45; Admin Dose 2 UNIT; Start 12/19/18 at 13:00 Apixaban (Eliquis) 10 mg BID PO Last administered on 12/20/18at 10:21; Admin Dose 10 MG; Start 12/20/18 at 09:30; Stop 12/26/18 at 23:59 Apixaban (Eliquis) 5 mg BID PO ; Start 12/27/18 at 09:00 LEWIS PERALES NP Dec 20, 2018 12:57
[2018-12-20] MEDS: EPOETIN ALFA-EPBX (ESRD) 3,000 UNIT/ML VIAL SC SCH (17:18)
--- NOTE | 2018-12-21 07:32 | DS ---
Date/Time of Note Date/Time of Note DATE: 12/21/18 TIME: 07:32 Discharge Summary Admission/Discharge Info Admit Date/Time Dec 06, 2018 at 12:45 Discharge Date/Time Dec 20, 2018 at 19:06 Discharge Diagnosis 1. Sepsis secondary to staph bacteremia and aspiration- improving 2. R proximal femoral DVT 3. s/p Cardiac arrest with ROSC 4. Chronic blindness 5. ?Arrhythmia, NSVT- resolved 6. DM 7. ESRD on HD 8. h/o CVA 9. HTN 10. Anemia Patient Condition: Stable Consults Cardiology- Dr. Dickens Pulmonology- Dr. Little ENT- Dr. Brar GI- Dr. Thorpe Neurology- Dr. Silver Nephrology- Dr. Reddy Infectious Disease- Dr Mg Procedures 12/14/18 OPERATION PERFORMED: Left femoral vein central line placement. Proc Note GI Procedure Date 12/17/18 Indication: treatment Pre-procedure Diagnosis Enteral feeding requirement Post-procedure Diagnosis Impression: Uneventful PEG. Fr#20 GT 12/19 PROCEDURE: Tracheostomy with Mariama flap. Hx of Present Illness 47 yo F with PMH ESRD on HD for the past 8 years, Diabetes Mellitus, HTN, CVA with L sided residual weakness and ? afib on Coumadin presented to ED following dialysis this am due to feeling "cold." She was found hypoxic with saturations 66% which improved after being placed on NC. Patient denies any chest pain, shortness of breath, nausea, vomiting, dizziness, abdominal pain, or urinary issues. While in the ED, patient was complaining of acute shortness of breath and witness to have runs of Vtach. She was placed on Amiodarone drip and went into Vtach and torsades rhythm and Vfib Patient received a shock, round of epi with ROSC. She was intubated and central line was placed. Hypothermia protocol was initiated and started on Lidocaine and Levophed. Patient coded two more times in the ED with noted PEA arrest. Patient was transferred to ICU. Patient coded again in the ICU and transvenous pacer was unable to be placed given stenosis of vessels. Patient was switched to Dopamine and Levophed and hypothermia protocol continued. Hospital Course Patient was admitted to ICU and continued on hypothermia protocol with monitoring of mental status. She was continued on Dopamine and Norepinephrine. She was seen by Nephrology for continuation of HD. Patient was found with bacteremia and infectious disease was consulted for antibiotic management. Patient completed hypothermia/rewarming with no improvement in her mental function. Neurology was consulted and imaging studies were negative for acute abnormalities and EEG revealed no epileptic activity. Patient's hospitalization was complicated by anemia with negative FOBT. She was transfused 2 PRBC with stabilization in her hemoglobin count. Patient was weaned off pressor support and dopamine with no further episodes of arrhythmias. Patient did not show any neurological recovery off sedation and family discussion with held with Palliative medicine. Family decided to continue all care and agreed to PEG and Trach placement. Patient was also found with DVT in R lower extremity as well as IJ, axial, cephalic and brachial veins. She was started on heparin and transitioned to Eliquis. Patients overall status remained stable, however, mental function did not improved. Patient was evaluated by [facility] staff and accepted for transfer and continued care. Patient was discharged to [facility] in good condition. Home Meds Reported Medications Insulin Lispro (Humalog) 100 U/Ml Vial, SQ SSI TID AND HS PRN 09/12/11 Multivit/Ca Carb/B Cmplx/Fa* (Mariaelena-Rosas*) 1 Tab Tab, 1 TAB PO DAILY 09/12/11 [Prostat 64] No Conflict Check, 30 ML PO TID 09/12/11 Esomeprazole Mag Trihydrate (Nexium) 40 Mg Capsule.dr, 40 MG PO DAILY 09/12/11 Metoprolol (Lopressor) 100 Mg Tablet, 100 MG PO BID 09/12/11 Benazepril Hcl* (Lotensin*) 40 Mg Tablet, 40 MG PO DAILY 09/12/11 [Lactulose] No Conflict Check, 30 ML PO DAILY PRN 09/12/11 Lactulose (Lactulose) 10 G/15 Ml Solution, 20 G PO BID 09/12/11 Glipizide* (Glucotrol XL*) 2.5 Mg Tabsr, 2.5 MG PO DAILY 09/12/11 Phenytoin* Sodium Extended (Dilantin*) 100 Mg Capsule, 300 MG PO HS 09/12/11 Phenytoin* Sodium Extended (Dilantin*) 100 Mg Capsule, 200 MG PO DAILY @0900 09/12/11 Phenytoin* Sodium Extended (Dilantin*) 100 Mg Capsule, 200 MG PO DAILY @1300 09/12/11 Phenytoin* Sodium Extended (Dilantin*) 100 Mg Capsule, 200 MG PO DAILY 09/12/11 Docusate Sodium* (Colace*) 100 Mg Capsule, 200 MG PO DAILY 09/12/11 Warfarin Sodium* (Coumadin*) 7.5 Mg Tablet, 7.5 MG PO Q OTHER DAY 06/01/11 Montelukast Sodium* (Singulair*) 10 Mg Tablet, 10 MG PO HS 06/01/11 Folic Acid/Vitamin B Comp W-C* (Nephro-Rosas Tablet*) 0.8 Mg Tablet, 0.8 MG PO DAILY 06/01/11 Aspirin (Aspirin) 81 Mg Tablet, 81 MG PO DAILY 06/01/11 Levetiracetam* (Keppra*) 500 Mg Tablet, 500 MG PO BID 06/01/11 Clonidine Hcl* (Clonidine Hcl*) 0.2 Mg Tablet 01/09/11 Metoclopramide Hcl* (Metoclopramide Hcl*) 10 Mg Tablet 01/09/11 Brimonidine Tartrate* (Brimonidine Tartrate*) 15 Ml Drops 01/09/11 Prednisolone Acetate (Pred Forte) 5 Ml Drops.susp 01/09/11 Nifedipine (Nifedical XL*) 30 Mg/Bottle Tab.osm.24 01/09/11 Calcium Acetate* (Phoslo*) 667 Mg Tablet 10/24/09 Follow-up Plan 1. Continue treatment in [place] Primary Care Provider Jase Balderas [facility] MD [place] Time spent on discharge: > 30 minutes Pending Labs Laboratory Tests Test 12/20/18 08:36 12/20/18 13:14 12/20/18 17:11 Bedside Glucose 148 mg/dL (70-220) 109 mg/dL (70-220) 90 mg/dL (70-220) BEAN BEST MD Dec 21, 2018 07:32
[2018-12-27] MEDS ORDERED: APIXABAN 5 MG TABLET PO SCH (09:00)
== END 2018-12-20 19:06 | DRG 4 ==
LOC: E/R 07:35 → CANRESERV 10:33 → EDBEDREQSVC 11:14 → ICU 12:45 → EDBEDREQ 12:48
PROVIDERS: ADMIT Internal Medicine; ATTEND Internal Medicine
PROC: 02HV33Z Insertion of Infusion Device into Superior Vena Cava, Percutaneous Approach (ICD-10-PCS; principal; 2018-12-06)
PROC: 5A1955Z Respiratory Ventilation, Greater than 96 Consecutive Hours (ICD-10-PCS; 2018-12-06)
PROC: 05HN33Z Insertion of Infusion Device into Left Internal Jugular Vein, Percutaneous Approach (ICD-10-PCS; 2018-12-06)
PROC: 5A12012 Performance of Cardiac Output, Single, Manual (ICD-10-PCS; 2018-12-06)
PROC: 0BH18EZ Insertion of Endotracheal Airway into Trachea, Via Natural or Artificial Opening Endoscopic (ICD-10-PCS; 2018-12-06)
PROC: 0DH63UZ Insertion of Feeding Device into Stomach, Percutaneous Approach (ICD-10-PCS; 2018-12-06)
PROC: 5A2204Z Restoration of Cardiac Rhythm, Single (ICD-10-PCS; 2018-12-06)
PROC: 30233N1 Transfusion of Nonautologous Red Blood Cells into Peripheral Vein, Percutaneous Approach (ICD-10-PCS; 2018-12-12)
PROC: 06HY33Z Insertion of Infusion Device into Lower Vein, Percutaneous Approach (ICD-10-PCS; 2018-12-14)
PROC: 0B110F4 Bypass Trachea to Cutaneous with Tracheostomy Device, Open Approach (ICD-10-PCS; 2018-12-19)
DX: A41.01 Sepsis due to Methicillin susceptible Staphylococcus aureus (principal); L89.323 Pressure ulcer of left buttock, stage 3; L89.313 Pressure ulcer of right buttock, stage 3; J96.01 Acute respiratory failure with hypoxia; N18.6 End stage renal disease; I50.23 Acute on chronic systolic (congestive) heart failure; I49.01 Ventricular fibrillation; T80.218A Other infection due to central venous catheter, initial encounter; I46.2 Cardiac arrest due to underlying cardiac condition; R65.21 Severe sepsis with septic shock; J69.0 Pneumonitis due to inhalation of food and vomit; I13.2 Hypertensive heart and chronic kidney disease with heart failure and with stage 5 chronic kidney disease, or end stage renal disease; I69.354 Hemiplegia and hemiparesis following cerebral infarction affecting left non-dominant side; I82.411 Acute embolism and thrombosis of right femoral vein; I42.9 Cardiomyopathy, unspecified; I82.C12 Acute embolism and thrombosis of left internal jugular vein; I82.A12 Acute embolism and thrombosis of left axillary vein; I82.612 Acute embolism and thrombosis of superficial veins of left upper extremity; I47.2 Ventricular tachycardia; Z68.41 Body mass index [BMI] 40.0-44.9, adult; E11.22 Type 2 diabetes mellitus with diabetic chronic kidney disease; E66.01 Morbid (severe) obesity due to excess calories; E87.6 Hypokalemia; H54.7 Unspecified visual loss; D63.1 Anemia in chronic kidney disease; G40.909 Epilepsy, unspecified, not intractable, without status epilepticus; D69.6 Thrombocytopenia, unspecified; Y83.8 Other surgical procedures as the cause of abnormal reaction of the patient, or of later complication, without mention of misadventure at the time of the procedure; Z99.2 Dependence on renal dialysis
CPT/HCPCS: 31500; 36415; 36430; 36600; 70450; 71045; 76937; 80048; 80053; 80069; 80076; 80185; 80202; 81001; 82140; 82150; 82270; 82550; 82553; 82728; 82803; 82962; 83010; 83036; 83540; 83605; 83615; 83690; 83735; 84100; 84134; 84436; 84478; 84479; 84484; 84703; 85014; 85018; 85025; 85045; 85049; 85384; 85610; 85670; 85730; 86850; 86870; 86900; 86901; 86920; 87070; 87081; 87086; 87340; 87400; 90935; 92950; 93005; 93306; 93970; 94002; 94003; 94770; 94799; 95819; J2001; C1751; C9113; J0171; J0282; J0360; J0461; J0690; J0692; J1165; J1265; J1450; J1644; J1815; J1940; J1953; J2060; J2250; J2370; J3010; J3370; J3475; J3480; J7040; J7042; J7050; P9016; P9047; Q5105

== ENCOUNTER 2019-01-02 12:30 | Day surgery (SDC) | payer MEDICARE, OTHER ==
[~2019-01-02] VITALS: Ht 157.5 cm; Wt 104.3 kg
[2019-01-02] VITALS (10 sets, daily range): BP systolic 71–260; BP diastolic 42–100; PULSE 75–94; RESP 14–22
--- NOTE | 2019-01-02 09:27 | PREAC ---
Date/Time of Note Date/Time of Note DATE: 01/02/19 TIME: 09:24 Anesthesia Eval and Record Evaluation Time Pre-Procedure Interview DATE: 01/02/19 TIME: 09:24 Age 48 Sex female NPO: 8 hrs Preoperative diagnosis anemia Planned procedure EGD/Colonoscopy Past Medical History Past Medical History: Includes Cardio: HTN, CHF Endo: Diabetes Pulm: Other (respiratory failure) Neuro: Seizure disorder Renal: ESRD on dialysis GI: Morbid obesity Heme: Anemia Surgery & Anesthesia Issues No known issue Meds Anticoagulation: No Beta Charles within 24 hr: No Reason Beta Charles not given: Pt. not on B-Charles Reported Medications Insulin Lispro (Humalog) 100 U/Ml Vial, SQ SSI TID AND HS PRN 09/12/11 Multivit/Ca Carb/B Cmplx/Fa* (Mariaelena-Rosas*) 1 Tab Tab, 1 TAB PO DAILY 09/12/11 [Prostat 64] No Conflict Check, 30 ML PO TID 09/12/11 Esomeprazole Mag Trihydrate (Nexium) 40 Mg Capsule.dr, 40 MG PO DAILY 09/12/11 Metoprolol (Lopressor) 100 Mg Tablet, 100 MG PO BID 09/12/11 Benazepril Hcl* (Lotensin*) 40 Mg Tablet, 40 MG PO DAILY 09/12/11 [Lactulose] No Conflict Check, 30 ML PO DAILY PRN 09/12/11 Lactulose (Lactulose) 10 G/15 Ml Solution, 20 G PO BID 09/12/11 Glipizide* (Glucotrol XL*) 2.5 Mg Tabsr, 2.5 MG PO DAILY 09/12/11 Phenytoin* Sodium Extended (Dilantin*) 100 Mg Capsule, 300 MG PO HS 09/12/11 Phenytoin* Sodium Extended (Dilantin*) 100 Mg Capsule, 200 MG PO DAILY @0900 09/12/11 Phenytoin* Sodium Extended (Dilantin*) 100 Mg Capsule, 200 MG PO DAILY @1300 09/12/11 Phenytoin* Sodium Extended (Dilantin*) 100 Mg Capsule, 200 MG PO DAILY 09/12/11 Docusate Sodium* (Colace*) 100 Mg Capsule, 200 MG PO DAILY 09/12/11 Warfarin Sodium* (Coumadin*) 7.5 Mg Tablet, 7.5 MG PO Q OTHER DAY 06/01/11 Montelukast Sodium* (Singulair*) 10 Mg Tablet, 10 MG PO HS 06/01/11 Folic Acid/Vitamin B Comp W-C* (Nephro-Rosas Tablet*) 0.8 Mg Tablet, 0.8 MG PO DAILY 06/01/11 Aspirin (Aspirin) 81 Mg Tablet, 81 MG PO DAILY 06/01/11 Levetiracetam* (Keppra*) 500 Mg Tablet, 500 MG PO BID 06/01/11 Clonidine Hcl* (Clonidine Hcl*) 0.2 Mg Tablet 01/09/11 Metoclopramide Hcl* (Metoclopramide Hcl*) 10 Mg Tablet 01/09/11 Brimonidine Tartrate* (Brimonidine Tartrate*) 15 Ml Drops 01/09/11 Prednisolone Acetate (Pred Forte) 5 Ml Drops.susp 01/09/11 Nifedipine (Nifedical XL*) 30 Mg/Bottle Tab.osm.24 01/09/11 Calcium Acetate* (Phoslo*) 667 Mg Tablet 10/24/09 Meds reviewed: Yes Allergies Coded Allergies: No Known Allergy (Verified , 12/13/18) Allergies Reviewed: Yes Labs/Studies Labs Reviewed: Reviewed by anesthesiologist test: N/A Studies: ECG (SR), CXR (Similar cardiomegaly with interval worsening of diffuse bilateral air space opacities representing pulmonary edema or infection.), 2D Echo (EF 35%) Pre-procedure Exam Airway: Adequate mouth opening Mallampati: Mallampati II Teeth: Normal Lung: Normal Heart: Normal ASA Physical Status ASA physical status: 4 Emergency: None Planned Anesthetic General/MAC: ETT Pre-operative Attestations Prior to commencing anesthesia and surgery, the patient was re-evaluated, there was verification of: *The patient's identity *The results of appropriate recent lab work and preoperative vital signs *The above evaluation not changing prior to induction *Anesthetic plan, risk benefits, alternative and complications discussed with patient/family; questions answered; patient/family understands, accepts and wishes to proceed. TWIN CORTEZ January 02, 2019 09:27
[~2019-01-02 12:30] MED LIST changes: -AMIODARONE 150 MG INJ ONE; -ATROPINE 1 MG/10 ML SYRINGE ONE; -EPINEPHrine 0.1 MG/ML SYG ONE; -NA BICARBONATE 8.4% 50 ML SYG ONE
[2019-01-02] MEDS ORDERED: FENTAnyl 50 MCG/ML VIAL IV PRN ×3 (13:30)
[2019-01-02] MEDS ORDERED: ROCURONIUM 50 MG INJ ONE (14:17)
[2019-01-02] MEDS ORDERED: ETOMIDATE 20 MG INJ ONE (14:17)
[2019-01-02] MEDS ORDERED: MIDAZOLAM 1 MG/ML 2 ML INJ ONE (15:20)
[2019-01-02] MEDS ORDERED: morphine (1 MG/ML) 10ML SYRINGE IV PRN (15:30)
[2019-01-02] MEDS ORDERED: LABETALOL HCL 20MG INJ IV PRN (15:30)
[2019-01-02] MEDS ORDERED: MIDAZOLAM 1 MG/ML 2 ML INJ IV PRN (15:30)
[2019-01-02] MEDS ORDERED: EPHEDrine SULFATE 50 MG/5 ML SYG IV PRN (15:30)
[2019-01-02] MEDS ORDERED: hydrALAzine 20 MG INJ IV PRN (15:30)
[2019-01-02] MEDS ORDERED: DIPHENHYDRAMINE 50 MG INJ IV PRN (15:30)
[2019-01-02] MEDS ORDERED: ONDANSETRON 4 MG INJ IV PRN (15:30)
[2019-01-02] MEDS ORDERED: MIDAZOLAM 1 MG/ML 2 ML INJ IV ONE (15:30)
--- NOTE | 2019-01-02 15:30 | PAC ---
Date/Time of Note Date/Time of Note DATE: 01/02/19 TIME: 15:30 Post-Anesthesia Notes Post-Anesthesia Note Last documented vital signs Vital Signs Date Temp Pulse Resp B/P (MAP) Pulse Ox O2 O2 Flow FiO2 Time Delivery Rate 01/02/19 97.4 93 14 260/100 100 Mechanical 15:16 (153) Ventilator Activity: WNL Respiratory function: WNL Cardiovascular function: WNL Mental status: Baseline Pain reasonably controlled: Yes Hydration appropriate: Yes Nausea/Vomiting absent: Yes GINA LANTIGUA MD January 02, 2019 15:30
[2019-01-02] MEDS ORDERED: EPHEDrine 50 MG INJ ONE (15:35)
[2019-01-02] MEDS ORDERED: EPHEDrine 25 MG/5 ML SYG ONE (15:36)
--- NOTE | 2019-01-02 21:39 | GILP ---
DATE OF PROCEDURE: 01/02/2019 INDICATION: A 48-year-old female undergoing this procedure for gastrointestinal bleeding secondary t o direct anticoagulant. The risk of the procedure, related and unrelated complications, anesthetic r isks, alternatives discussed. Informed consent was obtained. DESCRIPTION OF PROCEDURE: The patient was brought to the OR room #4, sedated by Dr. Walsh, placed in a supine position. The position could not be changed because of morbid obesity. Scope was passed wi th much ease into esophagus after appropriate sedation and advanced further down into stomach. Stoma ch mucosa was normal. Esophagus was normal; however, in the stomach the internal bumper appeared to be somewhat buried in the stomach wall. The external bumper was loosened up and the internal bumper was pushed inside and there was a giant ulcer created by the internal bumper due to the pressure was seen. I made the external bumper loose and put a 4 x 4 over that so that nobody can touch and the pr essure upon the abdominal stomach wall and the internal bumper was thus reduced. The gap was created by 1 to 2 cm between the ulcer and the internal bumper. Scope was advanced further down into the du odenum, first and second part was within normal limits. Gastritis identified. Retroversion done, no growth was seen. Scope was straightened out and removed with good patient tolerance. IMPRESSION: 1. Large internal stomal ulcer created by the pressure from the internal bumper. 2. External bumper was loosened up so the internal bumper does not create a pressure upon the ulcer. 3. No evidence of active bleeding. 4. Normal duodenum. 5. Gastritis with multiple petechial spots. 6. Normal esophagus. PLAN: Start the patient on double dose of PPI and Carafate to expedite the healing of the ulcer. Th e stalk of the G-tube needs to be anchored which the staff has not been doing despite the ____ so eugene t no pressure is applied on the internal bumper and this was written as an order. COLONOSCOPY: The patient was turned around, scope was passed with much ease into rectum, advanced sl owly through sigmoid, descending, transverse colon all the way into the cecum. Cecum was filled with solid stool. IC valve identified. The transillumination was positive but any lesion underneath the stool can be easily missed. Part of the ascending colon also was coated with stool. While coming o ut, mucosa thoroughly inspected. There was diminutive polyp identified. It was not removed since th e patient needs to be started on anticoagulant. Scope was removed with good patient tolerance. IMPRESSION: 1. Normal finding all the way into cecum. 2. Preparation was poor somewhat, this was in the cecum and ascending colon. 3. Large stercoral ulcer identified in the rectum. 4. ____ ulcers were identified, both were due to the fecal impaction. PLAN: The patient needs to be on stool softeners. No rectal tube. The patient can be started on di rect anticoagulant and will observe for any acute bleeding. Dictated By: ADRI MADRIGAL MD PJ/NTS Conf#: [id number] DID#: [id number] CC: SEDRICK MORALEZ MD;*End*
== END 2019-01-02 16:17 ==
LOC: GIL 12:30
PROVIDERS: ATTEND Internal Medicine Gastroenterology
DX: K28.9 Gastrojejunal ulcer, unspecified as acute or chronic, without hemorrhage or perforation (principal); K29.70 Gastritis, unspecified, without bleeding; K62.6 Ulcer of anus and rectum; E11.9 Type 2 diabetes mellitus without complications; I13.2 Hypertensive heart and chronic kidney disease with heart failure and with stage 5 chronic kidney disease, or end stage renal disease; I50.9 Heart failure, unspecified; N18.6 End stage renal disease; Z99.2 Dependence on renal dialysis; G40.909 Epilepsy, unspecified, not intractable, without status epilepticus
CPT/HCPCS: 43235; 45378; 82962; 94002; J2250